=== PATIENT | female | born 1955 | race African-American/Black ===

== ENCOUNTER 2019-03-10 21:07 | Inpatient (IN) | payer MEDICARE ==
[~2019-03-10] VITALS: Ht 165.1 cm; Wt 101.4 kg
--- NOTE | 2019-03-10 23:30 | NUR ---
NURSE NOTES: Received pt from [facility]. Pt is a/o x4. Skin intact except for laceration on right eyebrow s/p fall at home. IV site intact. Belongings list complete, belongings at bedside. teletypesetter monitor placed on patient and vitals taken. Oriented pt to room and floor. Bed locked in lowest position, call light within reach. Will contact Dr for admission orders.
[2019-03-10 23:35] VITALS: BP 136/58
--- NOTE | 2019-03-11 | NUR ---
NURSE NOTES: Left a message for Dr. Mendoza requesting admission orders. Awaiting call back.
[2019-03-11 04:00] VITALS: BP 126/65
[2019-03-11] MEDS ORDERED: Tylenol #3 tab (300mg/30mg) ORAL PRN (07:00)
--- NOTE | 2019-03-11 07:05 | NUR ---
HAND-OFF: Report given to VARUN Urrutia. Endorsed plan of care.
--- NOTE | 2019-03-11 07:15 | NUR ---
NURSE NOTES: Received report from Randall/RN, Patient is asleep, lying semi-ceballos, resting comfortably, on room air, No acute distress/SOB noted. Able to make needs known. IV site patent, no bleeding or infiltration noted. Bed in low position and locked. Bed alarm on, Call light and personal belonging within reach. Will continue plan of care.
[2019-03-11 08:00] VITALS: BP 132/69
[2019-03-11] MEDS: Heparin 5000 units/ml inj SUBQ SCH ×2 (09:00→20:57)
[2019-03-11] MEDS: Aspirin Baby 81mg ORAL SCH (09:44)
[2019-03-11 10:08] LABS: BASOPHILS % (AUTO) 0.8 % (0.0-2.0); EOSINOPHILS % (AUTO) 1.3 % (0.0-3.0); HEMATOCRIT 42.9 % (37.0-47.0); HEMOGLOBIN 13.3 G/DL (12.0-16.0); MEAN CORPUSCULAR VOLUME 89 FL (80-99); MONOCYTES % (AUTO) 4.1 % (1.0-10.0); NEUTROPHILS % (AUTO) 62.9 % (45.0-75.0); PLATELET COUNT 239 K/UL (150-450); RED BLOOD COUNT 4.84 M/UL (4.20-5.40); RED CELL DISTRIBUTION WIDTH 12.1 % (11.6-14.8); WHITE BLOOD COUNT 10.6 K/UL (4.8-10.8)
[2019-03-11 10:09] LABS: APPEARANCE,URINE CLEAR; BILIRUBIN, URINE NEGATIVE (NEGATIVE); COLOR,URINE PALE YELLOW; GLUCOSE, URINE (UA) NEGATIVE (NEGATIVE); KETONES,URINE 1+ (NEGATIVE); LEUKOCYTE ESTERASE ,URINE 3+ (NEGATIVE); NITRITE,URINE NEGATIVE (NEGATIVE); PH,URINE 6 (4.5-8.0); PROTEIN,URINE NEGATIVE (NEGATIVE); UROBILINOGEN,URINE 1 MG/DL (0.0-1.0)
--- NOTE | 2019-03-11 10:50 | Consultation ---
History of Present Illness General Date patient seen: Mar 11, 2019 Present Illness HPI 63 year old female with history of morbid obesity was taken by [employer] to [facility] [place] with cc of dizziness. She also had an episode of mechanical fall and injured her right eyebrow. She was evaluated in [facility] [place]. An acute CVA was ruled out and she is transferred to [facility] [place] further work up. She is sitting up in the bed and conversing normally. She is asymptomatic now. Allergies: Coded Allergies: No Known Allergies (Unverified , 03/11/19) Patient History Healthcare decision maker Resuscitation status Full Code Advanced Directive on File Past Medical/Surgical History Past Medical/Surgical History: (1) Morbid obesity Review of Systems All Other Systems: negative except mentioned in HPI Physical Exam General Appearance: WD/WN, no apparent distress Lines, tubes and drains: peripheral HEENT: normocephalic, atraumatic Neck: non-tender, normal alignment Respiratory/Chest: chest wall non-tender, lungs clear Breasts: no masses Cardiovascular/Chest: normal peripheral pulses Abdomen: normal bowel sounds Genitourinary/Rectal: normal genital exam Extremities: normal range of motion Skin Exam: normal pigmentation Last 24 Hour Vital Signs Date Time Temp Pulse Resp B/P (MAP) Pulse Ox O2 Delivery O2 Flow Rate FiO2 03/11/19 04:00 97.7 60 20 126/65 (85) 98 03/11/19 04:00 60 03/11/19 01:21 Room Air 03/10/19 23:35 97.7 63 20 136/58 (84) 99 Intake and Output 03/10/19 03/11/19 19:00 07:00 Intake Total 120 ml Output Total 200 ml Balance -80 ml Intake Oral 120 ml Output Urine Total 200 ml # Voids 1 Laboratory Tests Test 03/11/19 09:35 03/11/19 09:45 Urine Color Pale yellow Urine Appearance Clear Urine pH 6 (4.5-8.0) Urine Specific [place] 1.015 (1.005-1.035) Urine Protein Negative (NEGATIVE) Urine Glucose (UA) Negative (NEGATIVE) Urine Ketones 1+ (NEGATIVE) H Urine Blood 1+ (NEGATIVE) H Urine Nitrite Negative (NEGATIVE) Urine Bilirubin Negative (NEGATIVE) Urine Urobilinogen 1 MG/DL (0.0-1.0) H Urine Leukocyte Esterase 3+ (NEGATIVE) H Urine RBC 0-2 /HPF (0 - 2) Urine WBC 15-20 /HPF (0 - 2) H Urine Squamous Epithelial Cells Few /LPF (NONE/OCC) Urine Bacteria Few /HPF (NONE) White Blood Count 10.6 K/UL (4.8-10.8) Red Blood Count 4.84 M/UL (4.20-5.40) Hemoglobin 13.3 G/DL (12.0-16.0) Hematocrit 42.9 % (37.0-47.0) Mean Corpuscular Volume 89 FL (80-99) Mean Corpuscular Hemoglobin 27.5 PG (27.0-31.0) Mean Corpuscular Hemoglobin Concent 31.0 G/DL (32.0-36.0) L Red Cell Distribution Width 12.1 % (11.6-14.8) Platelet Count 239 K/UL (150-450) Mean Platelet Volume 8.8 FL (6.5-10.1) Neutrophils (%) (Auto) 62.9 % (45.0-75.0) Lymphocytes (%) (Auto) 31.0 % (20.0-45.0) Monocytes (%) (Auto) 4.1 % (1.0-10.0) Eosinophils (%) (Auto) 1.3 % (0.0-3.0) Basophils (%) (Auto) 0.8 % (0.0-2.0) Prothrombin Time 10.8 SEC (9.30-11.50) Prothromb Time International Ratio 1.0 (0.9-1.1) Activated Partial Thromboplast Time 25 SEC (23-33) Sodium Level Pending Potassium Level Pending Chloride Level Pending Carbon Dioxide Level Pending Blood Urea Nitrogen Pending Creatinine Pending Estimat Glomerular Filtration Rate Pending Glucose Level Pending Calcium Level Pending Phosphorus Level Pending Magnesium Level Pending Total Bilirubin Pending Aspartate Amino Transf (AST/SGOT) Pending Alanine Aminotransferase (ALT/SGPT) Pending Alkaline Phosphatase Pending Total Protein Pending Albumin Pending Globulin Pending Triglycerides Level Pending Cholesterol Level Pending LDL Cholesterol Pending HDL Cholesterol Pending Cholesterol/HDL Ratio Pending Height (Feet): 5 Height (Inches): 5.00 Weight (Pounds): 223 Medications Current Medications Medications (Trade) Dose Ordered Sig/Jere Route PRN Reason Start Time Stop Time Status Last Admin Dose Admin Acetaminophen (Tylenol) 650 mg Q6H PRN ORAL Mild Pain/Temp > 100.5 03/11/19 07:00 04/10/19 06:59 Acetaminophen/ Codeine Phosphate (Tylenol #3) 1 tab Q6H PRN ORAL Pain Scale (6-10) 03/11/19 07:00 03/18/19 06:59 Aspirin (ASA) 81 mg DAILY ORAL 03/11/19 09:00 04/10/19 08:59 03/11/19 09:44 Heparin Sodium (Porcine) (Heparin 5000 units/ml) 5,000 units EVERY 12 HOURS SUBQ 03/11/19 09:00 04/10/19 08:59 Ondansetron HCl (Zofran) 4 mg Q4H PRN IVP Nausea & Vomiting 03/11/19 07:00 04/10/19 06:59 Assessment/Plan Problem List: (1) TIA (transient ischemic attack) ICD Codes: G45.9 - Transient cerebral ischemic attack, unspecified SNOMED: 416859097 (2) Recurrent falls ICD Codes: R29.6 - Repeated falls SNOMED: 455477487 (3) Morbid obesity ICD Codes: E66.01 - Morbid (severe) obesity due to excess calories SNOMED: 926556303 Assessment/Plan: neuro checks MRI of brain 2d Echo doppler of carotid artery Neurology evaluation. Marina Buitrago MD Mar 11, 2019 10:50
[2019-03-11 10:57] LABS: ALANINE AMINOTRANSFERASE 19 U/L (12-78); ALBUMIN 3.4 G/DL (3.4-5.0); ALBUMIN/GLOBULIN RATIO 0.8 (1.0-2.7); ALKALINE PHOSPHATASE 86 U/L (46-116); ANION GAP 9 mmol/L (5-15); ASPARTATE AMINO TRANSFERASE 22 U/L (15-37); BLOOD UREA NITROGEN 12 mg/dL (7-18); CALCIUM 9.2 MG/DL (8.5-10.1); CARBON DIOXIDE 26 MMOL/L (21-32); CHLORIDE 108 MMOL/L (98-107); CHOLESTEROL 212 MG/DL (< 200); CREATININE 0.8 MG/DL (0.55-1.30); HDL CHOLESTEROL 50 MG/DL (40-60); PHOSPHORUS 2.6 MG/DL (2.5-4.9); POTASSIUM 4.1 MMOL/L (3.5-5.1); SODIUM 143 MMOL/L (136-145); TRIGLYCERIDES 69 MG/DL (30-150)
--- NOTE | 2019-03-11 11:27 | NUR ---
SPEECH PATHOLOGY: BEDSIDE SWALLOW EVALUATION COMPLETED POST CHART REVIEW AND INTERVIEW WITH VARUN ANDRE. THERE APPEAR TO BE NEGLIGIBLE DYSPHAGIA RISK FACTORS FOR THIS 63 YEAR OLD FEMALE. IMPRESSION: PATIENT PRESENTS WITH EFFICACY OF OROPHARYNGEAL PHASE OF SWALLOW INTACT. NO FURTHER SKILLED ST SERVICES APPEAR TO BE NEEDED AT THIS TIME. THANK YOU FOR THIS REFERRAL.
[2019-03-11 12:00] VITALS: BP 133/64
--- NOTE | 2019-03-11 12:13 | Diagnostic Imaging Report ---
Indication: An trauma, vertigo, inability to walk Technique: sagittal T1 fast spin echo, axial T1 FLAIR, axial and sagittal T2 FLAIR, axial T2 FS PROPELLER, axial T2* GRE, axial diffusion weighted images. ADC and exponential ADC maps generated Comparison: none Findings: Small focus of restricted diffusion is seen in the periventricular deep white matter adjacent to the posterior body of the left lateral ventricle. No definite associated T2 abnormality demonstrated. No other foci of restricted diffusion demonstrated. There is extensive confluent deep white matter high T2 signal diffusely. Multiple old lacunar infarcts are seen scattered throughout the cerebral deep white matter. Lacunar infarcts are also seen in the bilateral basal ganglia, particularly the thalami as well as within the midbrain. No acute hemorrhage or edema. Punctate foci of susceptibility artifact are seen within the cerebellum and bilateral basal ganglia. No mass effect nor midline shift. There is age-related enlargement of the ventricles and extra axial CSF spaces. The vascular flow voids are preserved.. There is near complete opacification of the left maxillary sinus. There is also bilateral ethmoid sinus mucosal disease. Impression: Positive for small acute lacunar infarct in the left posterior periventricular deep white matter Numerous old bilateral deep white matter, basal ganglia, and brainstem lacunar infarcts Stable scattered punctate foci of susceptibility artifact within the basal ganglia and cerebellum, consistent with old microbleeds; distribution is typical for chronic hypertensive encephalopathy Extensive deep white matter high T2 signal, consistent with chronic microvascular ischemic change Age-related volume loss Negative for acute intracranial bleed or mass effect
--- NOTE | 2019-03-11 12:23 | NUR ---
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
--- NOTE | 2019-03-11 12:29 | History & Physical ---
History and Physical History & Physicial Dictated for Int Med-Dr Mendoza no. [id number]. Tariq Murphy MD Mar 11, 2019 12:29
--- NOTE | 2019-03-11 13:30 | NUR ---
PT EVALUATION NOTE Patient seen for initial evaluation, see complete evaluation for details. Patient presents with generalized weakness and impaired balance which affects patient's ability to complete functional tasks. Patient requires SBA for transfers and CGA for ambulation with FWW due to impaired balance. Patient c/o feeling "wobbly" with walking and is a high fall risk. Patient will benefit from skilled inpatient PT intervention to address strength, balance, coordination, safety and functional mobility with assessment for appropriate assistive device. Recommend discharge to ARU/SNF for further rehab once medically cleared by MD. Addendum: 03/11/19 at 1441 by ALISA MIRANDA PT Amended: Links added.
[2019-03-11 16:00] VITALS: BP 132/87
--- NOTE | 2019-03-11 16:00 | History and Physical Report ---
DATE OF ADMISSION: 03/10/2019 CHIEF COMPLAINT: The patient is a 63-year-old female, who presents with a chief complaint of dizziness, headache, and ataxia. HISTORY OF PRESENT ILLNESS: The patient has a history of transient ischemic attack in the past. The patient states it began a couple of months ago. The patient began to have dizziness. Dizziness is described as the room spinning. Approximately two days ago, the patient began to have frequent falls. The patient states her gait was not steady. The patient presented to [facility] emergency room on 03/10/2019. An MRI of the brain revealed a left parietal lobe acute infarct. The patient is admitted with acute cerebrovascular accident. REVIEW OF SYSTEMS: CONSTITUTIONAL: The patient denies weight loss or weight gain. The patient denies fevers or chills. HEENT: The patient denies ear or throat pain. The patient complains of headache as above. CHEST: The patient denies wheezes or shortness of breath. CARDIOVASCULAR: The patient denies palpitations or chest pain. ABDOMEN: The patient denies nausea, vomiting, diarrhea, or constipation. GENITOURINARY: The patient denies dysuria or increased frequency of urination. NEUROMUSCULAR: The patient denies seizures or generalized weakness. The patient complains of vertigo, ataxia, and headache, as above. PAST MEDICAL HISTORY: Significant for history of transient ischemic attack. PAST SURGICAL HISTORY: The patient denies. CURRENT MEDICATIONS: The patient denies. ALLERGIES: No known drug allergies. SOCIAL HISTORY: The patient is single and lives alone. The patient denies tobacco or alcohol use. PHYSICAL EXAMINATION: VITAL SIGNS: Temperature 98.3, respirations 17, pulse 92, and blood pressure 126/76. GENERAL: The patient is a well-developed and well-nourished, obese female, in no apparent distress. HEENT: Eyes, pupils are equal and responsive to light and accommodation. Extraocular movements are intact. NECK: Supple without lymphadenopathy. CHEST: Lungs are clear to auscultation bilaterally without wheezes or rales. CARDIOVASCULAR: Regular rhythm and rate. S1, S2 normal without murmurs, rubs, or gallops. ABDOMEN: Soft, nontender, and nondistended. Positive bowel sounds. No evidence of hepatosplenomegaly. Currently, no rebound or guarding noted. EXTREMITIES: Negative for clubbing, cyanosis, or edema. RECTAL/GENITAL: Not performed. NEUROLOGIC: Cranial nerves II through XII are grossly intact without focal deficits. Motor strength is 5/5 bilaterally. Deep tendon reflexes are 2+ plantar. IMAGING: CT scan of the brain revealed no acute disease. An MRI of the brain from [facility] revealed a 3 x 8 mm restricted diffusion in the left parietal lobe consistent with acute infarct. LABORATORY STUDIES: WBC 10.6, hemoglobin 13.3, hematocrit 42.2, and platelets 275,000. Sodium 139, potassium 3.8, chloride 105, CO2 24, BUN 13, and creatinine 0.79. Glucose 102. Troponin less than 0.02. ASSESSMENT: This is a 63-year-old female with: 1. Acute left parietal lobe infarct/cerebrovascular accident. 2. Vertigo. 3. Ataxia. 4. Headache. 5. History of cerebrovascular disease. 6. Right eyebrow laceration. TREATMENT: 1. Left parietal lobe acute infarct. A Neurology consultation has been obtained with Dr. Luc Anderson. The patient has been started empirically on aspirin. We will follow recommendations of Neurology. The patient has been started on occupational and physical therapy. 2. Cerebrovascular disease. 3. Right eyebrow laceration. The patient is status post repair at [facility] emergency room. Tariq Murphy M.D. DR: BRENDA JOB#: [id number] CC:
--- NOTE | 2019-03-11 16:32 | Cardiology Report ---
APPROVED REPORT EXAM: Two-dimensional and M-mode echocardiogram with Doppler and color Doppler. INDICATION C.V.A M-Mode DIMENSIONS IVSd0.9 (0.7-1.1cm)Left Atrium (MM)3.1 (1.6-4.0cm) LVDd4.7 (3.5-5.6cm)Aortic Root2.2 (2.0-3.7cm) PWd0.9 (0.7-1.1cm)Aortic Cusp Exc.1.6 (1.5-2.0cm) IVSs1.3 cm LVDs3.2 (2.5-4.0cm) PWs1.3 cm Technically difficult study due to poor acoustical windows. Normal left ventricular chamber size, systolic function and wall motion to extent visualized. Left ventricular ejection fraction estimated to be 60-65 %. No evidence of left ventricular hypertrophy. No pericardial effusion. All other cardiac chamber sizes are within normal limits. Focal aortic valve sclerosis with adequate cusp excursion. Thickened mitral valve leaflets with normal excursion. Mitral annulus and aortic root calcification. Normal pulmonic valve structure. Normal tricuspid valve structure. IVC at normal size without physiologic collapse. A color flow and spectral Doppler study was performed and revealed: No aortic insufficiency. Trace mitral regurgitation. Mitral inflow indicates normal left ventricular diastolic function. Trace tricuspid regurgitation. Tricuspid systolic velocities suggests peak right ventricular systolic pressure of 8 mmHg
--- NOTE | 2019-03-11 19:07 | Consultation ---
Consult Note Consult Note NEUROLOGY CONSULTATION: Full note dictated #[id number] 63-year-old, right-handed, black lady, who does have a past history of untreated dyslipidemia, and obesity. For the last 6 months she has had episodic dizziness, unsteadiness on her feet, and a feeling of being unwell. On 03/08/2019 she felt a sudden change in her self. The unsteadiness on her feet became much worse and she felt like she was going to fall down. She denies any weakness on one side more than the other, numbness on one side of the other, problems with speech, problems with language, problems with vision, or problems with memory. Because of these problems she went to the [facility] and was evaluated there in the emergency room and was found to have a recent left brain stroke. She was stabilized there and then sent to [facility] to be taken care of by Dr. Mendoza. Today she feels relatively well. ON EXAM: Fully oriented Memory: 3/3-0, 1, 3, and second trial Trump and Obama only Math fairly good Visual-spatial function preserved Speech normal Language normal Cranial nerves II through XII intact except for trace right seventh central facial paresis G 5/5 power except for G 4+/5 in right finger extensors and iliopsoas. Sensory normal Reflexes: 2++ on right and 2+ on left at biceps triceps brachioradialis and knees 0 at both ankles. Plantar responses flexor. Coordination: [id number] normal [id number] difficult bilaterally Stance minimally wide-based Gait minimally wide-based but stable IMPRESSION: Recent left parietal deep white matter infarct adjacent to occipital horn of lateral ventricle. Multiple bilateral old subcortical infarcts. Etiology of infarcts most probably small vessel disease related to dyslipidemia and possibly other reasons. RECOMMENDATIONS: Agree with management thus far. Agree with starting the patient on atorvastatin the patient's LDL goal should be less than 70. Keep blood pressure in physiological range that is equal to less than 120/80 mmHg Work-up for other treatable causes of cerebrovascular disease Plavix 75 mg daily for added secondary stroke prevention benefits. Physical and Occupational Therapy to mobilize Luc Anderson M.D., M.S.P.H. Luc Anderson MD Mar 11, 2019 19:07
--- NOTE | 2019-03-11 19:35 | NUR ---
HAND-OFF: Report given to Santo/RN, Patient is in stable condition. Endorsed plan of care.
--- NOTE | 2019-03-11 19:38 | NUR ---
NURSE NOTES: Received report from Ghada RN, pt. received in bed, pt. is awake in bed A/O x's4- able to make needs known, no signs or symptoms of acute cardiac or respiratory distress noted, bed in lowest position and call light within easy reach, bed alarm on, side rails up x's 3 and safety brakes engaged, Pt. aware to ask for assist when ambulating, pt. appears to be clean and dry, Right AC 20G SL IV intact and patent, safety measures continued, will continue with plan of care.
[2019-03-11 20:00] VITALS: BP 139/90
--- NOTE | 2019-03-11 21:45 | Consultation ---
DATE OF CONSULTATION: 03/11/2019 NEUROLOGY CONSULTATION CONSULTING PHYSICIAN: Luc Anderson M.D. REQUESTING PHYSICIAN: Dewayne Mendoza M.D. HISTORY OF PRESENT ILLNESS: The patient is a 63-year-old, right-handed, black lady, who does have a past history of untreated dyslipidemia and morbid obesity. She was functioning relatively well until approximately 6 months ago when she started to have episodic dizziness, unsteadiness on her feet, and a feeling of being generally unwell. She was functioning relatively well in spite of that until 03/08/2019 when she felt a sudden change in herself, unsteadiness on her feet became much worse and she felt like she was going to fall down. She actually lost her balance and lacerated right eyebrow. She went to the [facility] to be evaluated and was told that she had a stroke. At this point in time, she feels a little better but still a little unsteady on her feet. She denies any weakness on one side or the other, numbness on one side or the other, problems with speech, problems with language, problems with vision, problems with her memory. PAST MEDICAL HISTORY: Significant for untreated dyslipidemia for numerous years and obesity for numerous years. FAMILY HISTORY: Nothing significant. PERSONAL HISTORY: Home, she lives alone. 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 Habits, she denies use of alcohol, tobacco, or illicit drugs. MEDICATIONS: At home, none. PHYSICAL EXAMINATION: GENERAL: She is a well-developed, well-nourished, obese black lady, lying in bed, in no acute distress. VITAL SIGNS: Pulse 66 per minute, blood pressure 132/87 mmHg, respiratory rate 18 per minute, and temperature 97.8 degrees Fahrenheit. HEENT: Head normocephalic and atraumatic. EENT examination was observed. NECK: No neck rigidity was observed. NEUROLOGICAL EXAMINATION: MENTAL STATUS: She was awake and alert. She was oriented to person, place, and time. She was able to recall 3 out of 3 words immediately after one minute and after three minutes on the second trial. She was able to remember presidents, Trump and Obama, but could not remember presidents prior to that. Her mathematical skills were fairly good. Her visuospatial function was preserved. Speech, she had no dysarthria. Language, she had no aphasia. CRANIAL NERVE EXAMINATION: CRANIAL NERVE II: The visual souza were intact on confrontation testing. CRANIAL NERVES III, IV, AND : The external ocular movements were full and the pupils 3 mm in diameter, equal, round, regular, and reactive to light. CRANIAL NERVE V: She had normal facial sensations and the temporalis, masseters, and pterygoids function normally. CRANIAL NERVE VII: She had a trace right VII central facial paresis. CRANIAL NERVE VIII: She was able to hear well bilaterally and had no nystagmus. CRANIAL NERVE IX: The palate moved symmetrically on phonation. CRANIAL NERVE X: She had no hoarseness of voice. CRANIAL NERVE XI: The sternocleidomastoids and trapezii function normally. CRANIAL NERVE XII: The tongue was in the midline without any fasciculations or atrophy MOTOR SYSTEM: The tone was normal in all four extremities. Examination of muscle mass revealed no focal wasting. Examination of power revealed grade 5/5 power except for grade 4+/5 power in the right finger extensors and iliopsoas. SENSORY EXAMINATION: She had intact sensations to pinprick, light touch, and graphesthesia. Coordination, she performed well on evctro-to-svfu testing. Sqdz-zl-fuju testing was difficult bilaterally. Romberg test could not be performed because even with eyes open when she was made to stand with feet together she was unsteady. Reflexes 2++ on the right and 2+ on the left in the biceps, triceps, brachioradialis, and knees, 0 at both ankles. The plantar responses were flexor bilaterally. Stance, she had a minimally wide-based, but stable stance. Gait, she walked with a minimally wide-based, but stable gait. DIAGNOSTIC IMPRESSION: 1. The patient is a 63-year-old, right-handed, black lady, who does have a past history of untreated dyslipidemia and obesity who for the last 6 months has had episodic dizziness almost constant unsteadiness on her feet and feeling of being unwell. On 03/08/2019, she had a sudden change in her self and unsteadiness on her feet became much worse and she felt like she was going to fall down. She did not notice any other changes in herself. She presented to the [facility] where she was evaluated with an MRI scan of the brain and was found to have a recent stroke. Today, she feels better. 2. On neurological examination at this time, she does have mild problems with recent memory, moderate problems with remote memory, weakness involving the face, upper and lower extremities on the right side, brisker reflexes on the right side compared to the left with loss of ankle jerks, inability to perform Romberg test, a wide-based stance and a wide-based gait. 3. MRI scan of the brain reveals recent left parietal deep white matter infarct adjacent to the occipital horn of the lateral ventricle. In addition, multiple old bilateral subcortical infarcts are also seen. Laboratory data obtained thus far revealed a relatively normal CBC, relatively normal chemistry panel, dyslipidemia with a total cholesterol of 212, LDL of 144, and HDL of 58. Urinalysis with 3+ leukocyte esterase, 0 to 2 red blood cells, and 15 to 20 white blood cells per high-power field. 4. The patient's history, neurological examination, and laboratory data, and imaging studies are most consistent with an acute left parietal deep white matter infarct leading to a mild right hemiparesis and significant unsteadiness on her feet. However she does have a prior history of unsteadiness on her feet which is still not explained. RECOMMENDATIONS: 1. Agree with management thus far. 2. Agree with starting the patient on atorvastatin. The patient's LDL goal should be less than 70 . 3. I would keep the patient's blood pressure into physiological range that is equal to or less than 120/80 mmHg, at all times. 4. The patient's antiplatelet agent will be changed to Plavix 75 mg daily for added secondary stroke prevention benefits. 5. She will be worked up thoroughly for other treatable causes of cerebrovascular disease and in addition neuropathic process. 6. Physical and occupational therapy should be started to mobilize her. 7. The patient will be observed closely and depending on how she fairs further recommendations will be given. Thank you for entrusting me with the care of this patient. I shall follow her with you. Luc Anderson M.D. DR: Rebecca JOB#: [id number] CC:
[2019-03-12] VITALS: BP 112/56
[2019-03-12 06:57] LABS: ANION GAP 11 mmol/L (5-15); BLOOD UREA NITROGEN 10 mg/dL (7-18); CALCIUM 8.5 MG/DL (8.5-10.1); CARBON DIOXIDE 28 MMOL/L (21-32); CHLORIDE 103 MMOL/L (98-107); CREATININE 1.1 MG/DL (0.55-1.30); POTASSIUM 2.9 MMOL/L (3.5-5.1); SODIUM 142 MMOL/L (136-145)
--- NOTE | 2019-03-12 07:09 | NUR ---
HAND-OFF: Report given to Ghada RN, pt. remains stable and no signs of distress noted.
--- NOTE | 2019-03-12 07:12 | NUR ---
NURSE NOTES: Received report from Santo/RN, Patient is asleep, lying semi-ceballos, resting comfortably, on room air, No acute distress/SOB noted. Able to make needs known. IV site patent, no bleeding or infiltration noted. Bed in low position and locked. Bed alarm on, Side rails up x2,Call light and personal belonging within reach. Will continue plan of care.
[2019-03-12 07:32] LABS: EOSINOPHILS % (AUTO) 2.1 % (0.0-3.0); HEMATOCRIT 40.3 % (37.0-47.0); HEMOGLOBIN 12.8 G/DL (12.0-16.0); LYMPHOCYTES % (AUTO) 38.8 % (20.0-45.0); MEAN CORPUSCULAR VOLUME 89 FL (80-99); MONOCYTES % (AUTO) 10.6 % (1.0-10.0); NEUTROPHILS % (AUTO) 47.4 % (45.0-75.0); PLATELET COUNT 212 K/UL (150-450); RED BLOOD COUNT 4.54 M/UL (4.20-5.40); RED CELL DISTRIBUTION WIDTH 12.7 % (11.6-14.8); WHITE BLOOD COUNT 8.6 K/UL (4.8-10.8)
[2019-03-12 08:00] VITALS: BP 133/66
[2019-03-12] MEDS: Aspirin Baby 81mg ORAL SCH (09:15)
[2019-03-12] MEDS: Heparin 5000 units/ml inj SUBQ SCH ×2 (09:21→20:59)
--- NOTE | 2019-03-12 10:54 | NUR ---
NURSE NOTES: Patient's potassium went down from 4.[address] Buitrago is aware.
--- NOTE | 2019-03-12 11:02 | Pulmonology Progress Note ---
Assessment/Plan Problems: (1) TIA (transient ischemic attack) (2) Recurrent falls (3) Morbid obesity Assessment/Plan MRI reviewed, acute lacunar CVA pt/ot check echo monitor BP Subjective ROS Limited/Unobtainable: No Constitutional: Reports: no symptoms HEENT: Repors: no symptoms Allergies: Coded Allergies: No Known Allergies (Unverified , 03/11/19) Objective Last 24 Hour Vital Signs Date Time Temp Pulse Resp B/P (MAP) Pulse Ox O2 Delivery O2 Flow Rate FiO2 03/12/19 04:00 71 03/12/19 00:00 98.1 75 19 112/56 (74) 96 03/12/19 00:00 86 03/11/19 21:00 Room Air 03/11/19 20:00 114 03/11/19 20:00 97.9 75 19 139/90 (106) 97 03/11/19 16:00 66 03/11/19 16:00 97.8 66 18 132/87 (102) 98 03/11/19 12:00 61 03/11/19 12:00 98.0 66 18 133/64 (87) 97 Intake and Output 03/11/19 03/12/19 18:59 06:59 Intake Total 400 ml Balance 400 ml Intake Oral 400 ml # Voids 3 2 General Appearance: WD/WN HEENT: normocephalic, atraumatic Respiratory/Chest: chest wall non-tender, lungs clear Breasts: no masses Cardiovascular: normal peripheral pulses Abdomen: normal bowel sounds, soft, non tender, no scars Genitourinary: normal external genitalia Extremities: no cyanosis Skin: no lesions Neurologic/Psychiatric: 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 Lymphatic: no neck adenopathy Microbiology Date/Time Source Procedure Growth Status 03/11/19 09:35 Urine,Clean Catch Urine Culture - Preliminary NO GROWTH Resulted Laboratory Tests 03/11/19 21:10: Vitamin D 25-Hydroxy [Pending], 25-Hydroxy Vitamin D2 [Pending], 25-Hydroxy Vitamin D3 [Pending], Rapid Plasma Reagin [Pending] 03/12/19 06:00: Sodium Level 142, Potassium Level 2.9L, Chloride Level 103, Carbon Dioxide Level 28, Anion Gap 11, Blood Urea Nitrogen 10, Creatinine 1.1, Estimat Glomerular Filtration Rate > 60, Glucose Level 122H, Calcium Level 8.5 03/12/19 06:24: White Blood Count 8.6, Red Blood Count 4.54, Hemoglobin 12.8, Hematocrit 40.3, Mean Corpuscular Volume 89, Mean Corpuscular Hemoglobin 28.3, Mean Corpuscular Hemoglobin Concent 31.8L, Red Cell Distribution Width 12.7, Platelet Count 212, Mean Platelet Volume 9.1, Neutrophils (%) (Auto) 47.4, Lymphocytes (%) (Auto) 38.8, Monocytes (%) (Auto) 10.6H, Eosinophils (%) (Auto) 2.1, Basophils (%) ( Auto) 1.0 Current Medications Medications (Trade) Dose Ordered Sig/Jere Route PRN Reason Start Time Stop Time Status Last Admin Dose Admin Acetaminophen (Tylenol) 650 mg Q6H PRN ORAL Mild Pain/Temp > 100.5 03/11/19 07:00 04/10/19 06:59 Acetaminophen/ Codeine Phosphate (Tylenol #3) 1 tab Q6H PRN ORAL Pain Scale (6-10) 03/11/19 07:00 03/18/19 06:59 Aspirin (ASA) 81 mg DAILY ORAL 03/11/19 09:00 04/10/19 08:59 03/12/19 09:15 Atorvastatin Calcium (Lipitor) 10 mg BEDTIME ORAL 03/11/19 21:00 04/10/19 20:59 03/11/19 20:55 Clopidogrel Bisulfate (Plavix) 75 mg DAILY ORAL 03/11/19 20:00 04/10/19 19:59 03/12/19 09:15 Heparin Sodium (Porcine) (Heparin 5000 units/ml) 5,000 units EVERY 12 HOURS SUBQ 03/11/19 09:00 04/10/19 08:59 03/12/19 09:21 Ondansetron HCl (Zofran) 4 mg Q4H PRN IVP Nausea & Vomiting 03/11/19 07:00 04/10/19 06:59 Marina Buitrago MD Mar 12, 2019 11:02
[2019-03-12] MEDS ORDERED: LIPITOR10 MG ORAL (11:12)
[2019-03-12] MEDS ORDERED: ASPIRIN81 MG ORAL (11:12)
[2019-03-12] MEDS ORDERED: PLAVIX75 MG ORAL (11:12)
[2019-03-12 12:00] VITALS: BP 127/74
--- NOTE | 2019-03-12 12:08 | NUR ---
DISCHARGE PLANNING DISCHARGE PLAN HAS CHANGED PATIENT HAS NOW BEEN REFERRED TO [facility]
--- NOTE | 2019-03-12 12:38 | Cardiology Report ---
APPROVED REPORT EKG Measurement Heart [id number] 130P61 [id number] Normal sinus rhythm Possible Anterior infarct, age undetermined Abnormal ECG
--- NOTE | 2019-03-12 13:30 | NUR ---
RD ASSESSMENT & RECOMMENDATIONS SEE CARE ACTIVITY FOR COMPLETE ASSESSMENT DAILY ESTIMATED NEEDS: Needs based on Obesity, cardiac/ 67.6kg abw 22-27 kcals/kg 2117-3056 total kcals 1-1.5 g protein/kg 68-101 g total protein 25-30 mL/kg 7528-0576 total fluid mLs NUTRITION DIAGNOSIS: Altered nutrition related lab values R/T altered lipid metabolism, clinical condition as evidenced by elev cholesterol (212), elev LDL (144), low K (2.9). CURRENT DIET:CARDIAC PO DIET RECOMMENDATIONS: Maintain CARDIAC diet/ texture as tolerated or per COURT RECORDING MONITOR
[2019-03-12 16:00] VITALS: BP 136/77
--- NOTE | 2019-03-12 17:14 | Internal Med Progress Note ---
Subjective Date of Service: Mar 12, 2019 Physician Name Tariq Murphy Attending Physician Dewayne Mendoza MD Current Medications Medications (Trade) Dose Ordered Sig/Jere Route PRN Reason Start Time Stop Time Status Last Admin Dose Admin Acetaminophen (Tylenol) 650 mg Q6H PRN ORAL Mild Pain/Temp > 100.5 03/11/19 07:00 04/10/19 06:59 Acetaminophen/ Codeine Phosphate (Tylenol #3) 1 tab Q6H PRN ORAL Pain Scale (6-10) 03/11/19 07:00 03/18/19 06:59 Aspirin (ASA) 81 mg DAILY ORAL 03/11/19 09:00 04/10/19 08:59 03/12/19 09:15 Atorvastatin Calcium (Lipitor) 10 mg BEDTIME ORAL 03/11/19 21:00 04/10/19 20:59 03/11/19 20:55 Clopidogrel Bisulfate (Plavix) 75 mg DAILY ORAL 03/11/19 20:00 04/10/19 19:59 03/12/19 09:15 Heparin Sodium (Porcine) (Heparin 5000 units/ml) 5,000 units EVERY 12 HOURS SUBQ 03/11/19 09:00 04/10/19 08:59 03/12/19 09:21 Ondansetron HCl (Zofran) 4 mg Q4H PRN IVP Nausea & Vomiting 03/11/19 07:00 04/10/19 06:59 Potassium Chloride (K-Dur) 40 meq Q4H ORAL 03/12/19 11:30 03/12/19 19:31 03/12/19 14:56 Allergies: Coded Allergies: No Known Allergies (Unverified , 03/11/19) ROS Limited/Unobtainable: No Constitutional: Reports: no symptoms HEENT: Reports: no symptoms Cardiovascular: Reports: no symptoms Respiratory: Reports: no symptoms Gastrointestinal/Abdominal: Reports: no symptoms Genitourinary: Reports: no symptoms Neurologic/Psychiatric: Reports: no symptoms Subjective 63 YO F admitted with vertigo and ataxia. Now acute left parietal CVA. Cover for Farheen Cano-Dr Mendoza. Objective Last Vital Signs Date Time Temp Pulse Resp B/P (MAP) Pulse Ox O2 Delivery O2 Flow Rate FiO2 03/12/19 12:00 97.5 72 19 127/74 (91) 98 03/12/19 09:00 Room Air Laboratory Tests Test 03/11/19 21:10 03/12/19 06:00 03/12/19 06:24 Vitamin D 25-Hydroxy Pending 25-Hydroxy Vitamin D2 Pending 25-Hydroxy Vitamin D3 Pending Rapid Plasma Reagin Pending Sodium Level 142 MMOL/L (136-145) Potassium Level 2.9 MMOL/L (3.5-5.1) L Chloride Level 103 MMOL/L (98-107) Carbon Dioxide Level 28 MMOL/L (21-32) Anion Gap 11 mmol/L (5-15) Blood Urea Nitrogen 10 mg/dL (7-18) Creatinine 1.1 MG/DL (0.55-1.30) Estimat Glomerular Filtration Rate > 60 mL/min (>60) Glucose Level 122 MG/DL (74-106) H Calcium Level 8.5 MG/DL (8.5-10.1) White Blood Count 8.6 K/UL (4.8-10.8) Red Blood Count 4.54 M/UL (4.20-5.40) Hemoglobin 12.8 G/DL (12.0-16.0) Hematocrit 40.3 % (37.0-47.0) Mean Corpuscular Volume 89 FL (80-99) Mean Corpuscular Hemoglobin 28.3 PG (27.0-31.0) Mean Corpuscular Hemoglobin Concent 31.8 G/DL (32.0-36.0) L Red Cell Distribution Width 12.7 % (11.6-14.8) Platelet Count 212 K/UL (150-450) Mean Platelet Volume 9.1 FL (6.5-10.1) Neutrophils (%) (Auto) 47.4 % (45.0-75.0) Lymphocytes (%) (Auto) 38.8 % (20.0-45.0) Monocytes (%) (Auto) 10.6 % (1.0-10.0) H Eosinophils (%) (Auto) 2.1 % (0.0-3.0) Basophils (%) (Auto) 1.0 % (0.0-2.0) Microbiology Date/Time Source Procedure Growth Status 03/11/19 09:35 Urine,Clean Catch Urine Culture - Preliminary NO GROWTH Resulted Intake and Output 03/11/19 03/12/19 19:00 07:00 Intake Total 280 ml Balance 280 ml Intake Oral 280 ml # Voids 3 2 Objective PHYSICAL EXAMINATION: GENERAL: The patient is a well-developed and well-nourished, obese female, in no apparent distress. HEENT: Eyes, pupils are equal and responsive to light and accommodation. Extraocular movements are intact. NECK: Supple without lymphadenopathy. CHEST: Lungs are clear to auscultation bilaterally without wheezes or rales. CARDIOVASCULAR: Regular rhythm and rate. S1, S2 normal without murmurs, rubs, or gallops. ABDOMEN: Soft, nontender, and nondistended. Positive bowel sounds. No evidence of hepatosplenomegaly. Currently, no rebound or guarding noted. EXTREMITIES: Negative for clubbing, cyanosis, or edema. RECTAL/GENITAL: Not performed. NEUROLOGIC: Cranial nerves II through XII are grossly intact without focal deficits. Motor strength is 5/5 bilaterally. Deep tendon reflexes are 2+ plantar. Assessment/Plan Assessment/Plan ASSESSMENT: This is a 63-year-old female with: 1. Acute left parietal lobe infarct/cerebrovascular accident. 2. Vertigo. 3. Ataxia. 4. Headache. 5. History of cerebrovascular disease. 6. Right eyebrow laceration. TREATMENT: 1. Left parietal lobe acute infarct. A Neurology consultation has been obtained with Dr. Luc Anderson. The patient has been started empirically on aspirin. We will follow recommendations of Neurology. The patient has been started on occupational and physical therapy. 2. Cerebrovascular disease. 3. Right eyebrow laceration. The patient is status post repair at [facility] emergency room. 4. Discharge Plan: to acute rehab when stable Tariq Murphy MD Mar 12, 2019 17:14
--- NOTE | 2019-03-12 18:57 | Consultation ---
Consult Note Consult Note CONSULTATION Patient: JAN KATZ [facility] Rec #: [id number] Patient No.: [id number] Date of Admission: 03/10/19 Date and time entered: 03/11/191856 DATE OF CONSULTATION: 03/11/2019 NEUROLOGY CONSULTATION CONSULTING PHYSICIAN: Luc Anderson M.D. REQUESTING PHYSICIAN: Dewayne Mendoza M.D. HISTORY: Ms. Jan Katz is a 63-year-old, right-handed, black lady, who does have a past history of untreated dyslipidemia and morbid obesity. She was functioning relatively well until approximately 6 months ago when she started to have episodic dizziness, unsteadiness on her feet, and a feeling of being generally unwell. She was functioning relatively well in spite of that until 03/08/2019 when she felt a sudden change in herself. The unsteadiness on her feet became much worse and she felt like she was going to fall down. She actually lost her balance and lacerated right eyebrow. She went to the [facility] to be evaluated and was told that she had a stroke. At this point in time, she feels a little better but still a little unsteady on her feet. She denies any weakness on one side or the other, numbness on one side or the other, problems with speech, problems with language, problems with vision, problems with her memory. PAST MEDICAL HISTORY: Significant for untreated dyslipidemia for numerous years and obesity for numerous years. FAMILY HISTORY: Nothing significant. PERSONAL HISTORY: Home: She lives alone. 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 Habits: She denies use of alcohol, tobacco, or illicit drugs. MEDICATIONS: At home, none. PHYSICAL EXAMINATION: GENERAL: She is a well-developed, well-nourished, obese black lady, lying in bed, in no acute distress. VITAL SIGNS: Pulse 66/minute, blood pressure 132/87 mmHg, respirations 18/minute, and temperature 97.8 degrees Fahrenheit. HEAD: Normocephalic and atraumatic. EENT: Examination was observed. NECK: No neck rigidity was observed. NEUROLOGICAL EXAMINATION: MENTAL STATUS EXAMINATION: She was awake and alert. She was oriented to person, place, and time. She was able to recall 3/3 words immediately, after 1 minute and after 3 minutes on the second trial. She was able to remember presidents, Trump and Obama, but could not remember presidents prior to that. Her mathematical skills were fairly good. Her visuospatial function was preserved. SPEECH: She had no dysarthria. LANGUAGE: She had no aphasia. CRANIAL NERVE EXAMINATION: II: The visual souza were intact on confrontation testing. III, IV & : The external ocular movements were full and the pupils 3 mm in diameter, equal, round, regular, and reactive to light. V: She had normal facial sensations and the temporales, masseters, and pterygoids functioned normally. VII: She had a trace right VII central facial paresis. VIII: She was able to hear well bilaterally and had no nystagmus. IX: The palate moved symmetrically on phonation. X: She had no hoarseness of voice. XI: The sternocleidomastoids and trapezii functioned normally. XII: The tongue was in the midline without any fasciculations or atrophy MOTOR SYSTEM: The tone was normal in all four extremities. Examination of muscle mass revealed no focal wasting. Examination of power revealed G 5/5 power except for G 4+/5 power in the right finger extensors and iliopsoas. SENSORY EXAMINATION: She had intact sensations to pinprick, light touch, and graphesthesia. COORDINATION: She performed well on ejdqxo-xq-gcsb testing. Ndrh-if-cscu testing was difficult bilaterally. Romberg test could not be performed because even with eyes open when she was made to stand with feet together she was unsteady. REFLEXES: 2++ on the right and 2+ on the left in the biceps, triceps, brachioradialis, and knees, 0 at both ankles. The plantar responses were flexor bilaterally. STANCE: She had a minimally wide-based, but stable stance. GAIT: She walked with a minimally wide-based, but stable gait. DIAGNOSTIC IMPRESSION: 1. Ms. Jan Katz is a 63-year-old, right-handed, black lady, who does have a past history of untreated dyslipidemia and obesity who for the last 6 months has had episodic dizziness, almost constant unsteadiness on her feet, and feeling of being unwell. On 03/08/2019, she had a sudden change in her self and the unsteadiness on her feet became much worse and she felt like she was going to fall down. She did not notice any other changes in herself. She presented to the [facility] where she was evaluated with an MRI scan of the brain and was found to have a recent stroke. Today, she feels better. 2. On neurological examination, at this time, she does have mild problems with recent memory, moderate problems with remote memory, weakness involving the face, upper and lower extremities on the right side, brisker reflexes on the right side compared to the left with loss of ankle jerks, inability to perform Romberg test, a wide-based stance and a wide-based gait. 3. The MRI scan of the brain reveals recent left parietal deep white matter infarct adjacent to the occipital horn of the lateral ventricle. In addition, multiple old bilateral subcortical infarcts are also seen. 4. Laboratory data obtained thus far revealed a relatively normal CBC, relatively normal chemistry panel, a dyslipidemia with a total cholesterol of 212, LDL of 144, and HDL of 58. A Urinalysis with 3+ leukocyte esterase, 0-2 red blood cells, and 15-20 white blood cells per high-power field. 5. The patient's history, neurological examination, laboratory data, and imaging studies, are most consistent with an acute left parietal deep white matter infarct leading to a mild right hemiparesis and significant unsteadiness on her feet. However she does have a prior history of unsteadiness on her feet which is still not explained. RECOMMENDATIONS: 1. Agree with management thus far. 2. Agree with starting the patient on atorvastatin. The patient's LDL goal should be <70 . 3. Would keep the patient's blood pressure in physiological range that is <120/80 mmHg, at all times. 4. The patient's antiplatelet agent will be changed to Plavix 75 mg daily for added secondary stroke prevention benefits. 5. She will be worked up thoroughly for other treatable causes of cerebrovascular disease and in addition a neuropathic process. 6. Physical and occupational therapy should be started to mobilize her. 7. The patient will be observed closely and depending on how she fares further recommendations will be given. Thank you for entrusting me with the care of Ms. Katz. I shall follow her with you. Luc Anderson M.D., M.S.P.Luc Quesada MD Mar 12, 2019 18:57
--- NOTE | 2019-03-12 19:35 | NUR ---
HAND-OFF: Report given to Armannyn/RN, Patient is awake and in stable condition. Endorsed plan ofm care.
--- NOTE | 2019-03-12 19:36 | NUR ---
NURSE NOTES: Received report from Ghada RN, Patient is resting in bed, lying semi-ceballos, on room air, No acute distress/SOB noted at this time. Able to make needs known. IV site patent, no bleeding or infiltration noted. Bed in low position and locked. Bed alarm on, Side rails up x2,Call light and personal belonging within reach. Will continue to monitor and follow plan of care.
[2019-03-12 20:00] VITALS: BP 142/72
--- NOTE | 2019-03-12 20:37 | Neurology Progress Note ---
Interim History Interim History Interim History Ms. Katz feels about the same as yesterday. When she was made to stand up and walk she was still quite unsteady. She denies any new neurological symptoms. She specifically denies any increased weakness on one side or the other, numbness on one side or the other, problems with speech, problems with language , problems with vision, or other neurological symptoms. Her blood pressures are still not under perfect control. Review of Systems Neuro Review of Systems Benign. Objective Physical Exam Last Vital Signs Date Time Temp Pulse Resp B/P (MAP) Pulse Ox O2 Delivery O2 Flow Rate FiO2 03/12/19 20:00 98.0 66 18 142/72 (95) 97 03/12/19 09:00 Room Air Laboratory Tests Test 03/11/19 21:10 03/12/19 06:00 03/12/19 06:24 Vitamin D 25-Hydroxy Pending 25-Hydroxy Vitamin D2 Pending 25-Hydroxy Vitamin D3 Pending Rapid Plasma Reagin Pending Sodium Level 142 MMOL/L (136-145) Potassium Level 2.9 MMOL/L (3.5-5.1) L Chloride Level 103 MMOL/L (98-107) Carbon Dioxide Level 28 MMOL/L (21-32) Anion Gap 11 mmol/L (5-15) Blood Urea Nitrogen 10 mg/dL (7-18) Creatinine 1.1 MG/DL (0.55-1.30) Estimat Glomerular Filtration Rate > 60 mL/min (>60) Glucose Level 122 MG/DL (74-106) H Calcium Level 8.5 MG/DL (8.5-10.1) White Blood Count 8.6 K/UL (4.8-10.8) Red Blood Count 4.54 M/UL (4.20-5.40) Hemoglobin 12.8 G/DL (12.0-16.0) Hematocrit 40.3 % (37.0-47.0) Mean Corpuscular Volume 89 FL (80-99) Mean Corpuscular Hemoglobin 28.3 PG (27.0-31.0) Mean Corpuscular Hemoglobin Concent 31.8 G/DL (32.0-36.0) L Red Cell Distribution Width 12.7 % (11.6-14.8) Platelet Count 212 K/UL (150-450) Mean Platelet Volume 9.1 FL (6.5-10.1) Neutrophils (%) (Auto) 47.4 % (45.0-75.0) Lymphocytes (%) (Auto) 38.8 % (20.0-45.0) Monocytes (%) (Auto) 10.6 % (1.0-10.0) H Eosinophils (%) (Auto) 2.1 % (0.0-3.0) Basophils (%) (Auto) 1.0 % (0.0-2.0) Neurologic Exam Objective PHYSICAL EXAMINATION: GENERAL: She is a well-developed, well-nourished, obese black lady, lying in bed, in no acute distress. HEAD: Normocephalic and atraumatic. EENT: Examination was observed. NECK: No neck rigidity was observed. NEUROLOGICAL EXAMINATION: MENTAL STATUS EXAMINATION: She was awake and alert. She was oriented to person, place, and time. She was able to recall 3/3 words immediately, after 1 minute and after 3 minutes on the second trial. She was able to remember presidents, Trump and Obama, but could not remember presidents prior to that. Her mathematical skills were fairly good. Her visuospatial function was preserved. SPEECH: She had no dysarthria. LANGUAGE: She had no aphasia. CRANIAL NERVE EXAMINATION: II: The visual souza were intact on confrontation testing. III, IV & : The external ocular movements were full and the pupils 3 mm in diameter, equal, round, regular, and reactive to light. V: She had normal facial sensations and the temporales,masseters, and pterygoids functioned normally. VII: She had a trace right VII central facial paresis. VIII: She was able to hear well bilaterally and had no nystagmus. IX: The palate moved symmetrically on phonation. X: She had no hoarseness of voice. XI: The sternocleidomastoids and trapezii functioned normally. XII: The tongue was in the midline without any fasciculations or atrophy MOTOR SYSTEM: The tone was normal in all four extremities. Examination of muscle mass revealed no focal wasting. Examination of power revealed G 5/5 power except for G 4+/5 power in the right finger extensors and iliopsoas. SENSORY EXAMINATION: She had intact sensations to pinprick, light touch, and graphesthesia. COORDINATION: She performed well on [id number] testing. Kxww-dc-[id number] testing was difficult bilaterally. Romberg test could not be performed because even with eyes open when she was made to stand with feet together she was unsteady. REFLEXES: 2++ on the right and 2+ on the left in the biceps, triceps, and brachioradialis. 3+ on the right and 2+ on the left at the knees. 0 at both ankles. The plantar responses were flexor bilaterally. STANCE: She had a minimally wide-based, but stable stance. GAIT: She walked with a minimally wide-based, but stable gait. Impression/Recommendations Diagnostic Impression 1. Ms. Harriet Katz is a 63-year-old, right-handed, black lady, who does have a past history of untreated dyslipidemia and obesity who for the last 6 months has had episodic dizziness, almost constant unsteadiness on her feet, and feeling of being unwell. On 03/08/2019, she had a sudden change in her self and the unsteadiness on her feet became much worse and she felt like she was going to fall down. She did not notice any other changes in herself. She presented to the [facility] where she was evaluated with an MRI scan of the brain and was found to have a recent stroke. 2. She feels about the same as yesterday. When she was made to stand up and walk she was still quite unsteady. She denies any new neurological symptoms. She specifically denies any increased weakness on one side or the other, numbness on one side or the other, problems with speech, problems with language , problems with vision, or other neurological symptoms. Her blood pressures are still not under perfect control. 3. On neurological examination, at this time, she does have mild problems with recent memory, moderate problems with remote memory, weakness involving the face , upper and lower extremities on the right side, brisker reflexes on the right side compared to the left with loss of ankle jerks, inability to perform Romberg test, a wide-based stance and a wide-based gait. 4. The MRI scan of the brain reveals recent left parietal deep white matter infarct adjacent to the occipital horn of the lateral ventricle. In addition, multiple old bilateral subcortical infarcts are also seen. 5. Laboratory data obtained thus far revealed a relatively normal CBC, relatively normal chemistry panel, a dyslipidemia with a total cholesterol of 212, LDL of 144, and HDL of 58. A Urinalysis with 3+ leukocyte esterase, 0-2 red blood cells, and 15-20 white blood cells per high-power field. 6. The patient's history, neurological examination, laboratory data, and imaging studies, are most consistent with an acute left parietal deep white matter infarct leading to a mild right hemiparesis and significant unsteadiness on her feet. However she does have a prior history of unsteadiness on her feet which is still not explained. Recommendations 1. Continue present management. 2. Agree with starting the patient on atorvastatin. The patient's LDL goal should be <70 . 3. Would keep the patient's blood pressure in physiological range that is <120/ 80 mmHg, at all times. 4. Continue Plavix 75 mg daily for added secondary stroke prevention benefits. 5. Physical and occupational therapy to mobilize her. 6. The patient would benefit significantly from a course of acute rehabilitation. Luc Anderson M.D., M.S.P.H. Luc Anderson MD Mar 12, 2019 20:37
[2019-03-13] VITALS: BP 125/69
[2019-03-13 04:00] VITALS: BP 122/73
--- NOTE | 2019-03-13 06:30 | NUR ---
NURSE NOTES: Patient was transferred to the 4th floor room 411-2 without incidence. Report was given to Dhara. All belongings were taken with the patient along with the chart and patient labels. Patient is currently in stable condition without anything pending at this time
[2019-03-13 06:49] LABS: BASOPHILS % (AUTO) 1.4 % (0.0-2.0); EOSINOPHILS % (AUTO) 3.7 % (0.0-3.0); HEMOGLOBIN 12.9 G/DL (12.0-16.0); MEAN CORPUSCULAR VOLUME 89 FL (80-99); MONOCYTES % (AUTO) 11.5 % (1.0-10.0); NEUTROPHILS % (AUTO) 43.4 % (45.0-75.0); PLATELET COUNT 227 K/UL (150-450); RED BLOOD COUNT 4.61 M/UL (4.20-5.40); RED CELL DISTRIBUTION WIDTH 12.1 % (11.6-14.8); WHITE BLOOD COUNT 8.5 K/UL (4.8-10.8)
[2019-03-13] MEDS ORDERED: Tylenol #3 tab (300mg/30mg) ORAL PRN (07:00)
--- NOTE | 2019-03-13 07:00 | NUR ---
NURSE NOTES: PATIENT REPORT THAT PINK STYLUS IS MISSING, NOT IN BELONGINGS; TELEPHONE CALL PLACED TO TRANSFERRING RN, WENDY, STATED THAT HE WILL SEARCH ROOM FOR STYLUS; PATIENT MADE AWARE, ENDORSED TO VARUN MOREIRA.
--- NOTE | 2019-03-13 07:07 | NUR ---
HAND-OFF: Report given to VARUN AVERY.
[2019-03-13 07:36] LABS: ANION GAP 8 mmol/L (5-15); BLOOD UREA NITROGEN 15 mg/dL (7-18); CALCIUM 9.3 MG/DL (8.5-10.1); CARBON DIOXIDE 24 MMOL/L (21-32); CHLORIDE 110 MMOL/L (98-107); CREATININE 0.8 MG/DL (0.55-1.30); POTASSIUM 4.7 MMOL/L (3.5-5.1); SODIUM 141 MMOL/L (136-145)
--- NOTE | 2019-03-13 07:54 | NUR ---
NURSE NOTES: Patient received resting in bed, eating breakfast. Responds appropriately, breathing unlabored on room air. Denies pain or SOB at this time. Cane observed by the bedside. Bed locked in lowest position, bed alarm on. Patient advised to ask for assistance with toileting. Patient verbalized understanding. Bed locked in lowest position, call light placed within reach. Will continue to monitor.
[2019-03-13 08:00] VITALS: BP 116/72
[2019-03-13] MEDS ORDERED: Heparin 5000 units/ml inj SUBQ SCH (09:00)
[2019-03-13] MEDS ORDERED: Aspirin Baby 81mg ORAL SCH (09:00)
--- NOTE | 2019-03-13 10:51 | NUR ---
DISCHARGE PLAN PATIENT WILL DISCHARGE TO [facility] ROOM [address] SKILLED T: [phone] FOR NURSE TO NURSE REPORT [facility] HAS BEEN ARRANGED FOR 1300 SYSTEMS ADMINISTRATOR
--- NOTE | 2019-03-13 11:32 | Pulmonology Progress Note ---
Assessment/Plan Problems: (1) TIA (transient ischemic attack) (2) Recurrent falls (3) Morbid obesity (4) Acute CVA (cerebrovascular accident) Assessment/Plan MRI reviewed, acute lacunar CVA pt/ot check echo monitor BP dc planning in progress Subjective ROS Limited/Unobtainable: No HEENT: Repors: no symptoms Cardiovascular: Reports: no symptoms Allergies: Coded Allergies: No Known Allergies (Unverified , 03/11/19) Objective Last 24 Hour Vital Signs Date Time Temp Pulse Resp B/P (MAP) Pulse Ox O2 Delivery O2 Flow Rate FiO2 03/13/19 09:00 Room Air 03/13/19 08:00 97.7 78 18 116/72 (87) 95 03/13/19 04:00 64 03/13/19 04:00 98.2 68 18 122/73 (89) 98 03/13/19 00:00 98.6 73 18 125/69 (87) 97 03/13/19 00:00 72 03/12/19 21:00 Room Air 03/12/19 20:00 98.0 66 18 142/72 (95) 97 03/12/19 20:00 78 03/12/19 16:00 63 03/12/19 16:00 97.7 80 19 136/77 (96) 96 03/12/19 12:00 97.5 72 19 127/74 (91) 98 03/12/19 12:00 68 Intake and Output 03/12/19 03/13/19 18:59 06:59 Intake Total 480 ml Balance 480 ml Intake Oral 480 ml # Voids 3 1 General Appearance: WD/WN HEENT: normocephalic Respiratory/Chest: chest wall non-tender, lungs clear Breasts: no masses Cardiovascular: normal peripheral pulses Abdomen: normal bowel sounds, soft, non tender Genitourinary: normal external genitalia Extremities: no cyanosis Neurologic/Psychiatric: ophthalmic asst II-XII 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, no motor/sensory deficits Lymphatic: no neck adenopathy Microbiology Date/Time Source Procedure Growth Status 03/11/19 09:35 Urine,Clean Catch Urine Culture - Preliminary Mixed Gram Positive Organism Resulted Laboratory Tests 03/13/19 06:11: White Blood Count 8.5, Red Blood Count 4.61, Hemoglobin 12.9, Hematocrit 41.0, Mean Corpuscular Volume 89, Mean Corpuscular Hemoglobin 27.9, Mean Corpuscular Hemoglobin Concent 31.4L, Red Cell Distribution Width 12.1, Platelet Count 227, Mean Platelet Volume 9.2, Neutrophils (%) (Auto) 43.4L, Lymphocytes (%) (Auto) 40.0, Monocytes (%) (Auto) 11.5H, Eosinophils (%) (Auto) 3.7H, Basophils (%) ( Auto) 1.4, Sodium Level 141, Potassium Level 4.7#, Chloride Level 110H, Carbon Dioxide Level 24, Anion Gap 8, Blood Urea Nitrogen 15, Creatinine 0.8, Estimat Glomerular Filtration Rate > 60, Glucose Level 112H, Calcium Level 9.3 Current Medications Medications (Trade) Dose Ordered Sig/Jere Route PRN Reason Start Time Stop Time Status Last Admin Dose Admin Acetaminophen (Tylenol) 650 mg Q6H PRN ORAL Mild Pain/Temp > 100.5 03/13/19 07:00 04/10/19 06:59 Acetaminophen/ Codeine Phosphate (Tylenol #3) 1 tab Q6H PRN ORAL Pain Scale (6-10) 03/13/19 07:00 03/18/19 06:59 Aspirin (ASA) 81 mg DAILY ORAL 03/13/19 09:00 04/10/19 08:59 03/13/19 09:31 Atorvastatin Calcium (Lipitor) 10 mg BEDTIME ORAL 03/13/19 21:00 04/10/19 20:59 Clopidogrel Bisulfate (Plavix) 75 mg DAILY ORAL 03/13/19 09:00 04/10/19 19:59 03/13/19 09:31 Heparin Sodium (Porcine) (Heparin 5000 units/ml) 5,000 units EVERY 12 HOURS SUBQ 03/13/19 09:00 04/10/19 08:59 03/13/19 09:36 Ondansetron HCl (Zofran) 4 mg Q4H PRN IVP Nausea & Vomiting 03/13/19 07:00 04/10/19 06:59 Marina Buitrago MD Mar 13, 2019 11:32
[2019-03-13 11:47] VITALS: BP 128/79
--- NOTE | 2019-03-13 13:25 | NUR ---
NURSE NOTES: Patient discharged to [facility], report given to Krysten BOND. Patient in stable condition, aware of discharge. IV safely removed, covered with gauze and tape. Belongings reviewed and confirmed by the bedside. Money removed from safe and reviewed with security and nurse stonemason supervisor. Confirmed that amount is correct as during admission. Transported by ambulance personnel.
--- NOTE | 2019-03-13 15:40 | Internal Med Progress Note ---
Subjective Physician Name Dewayne Mendoza Attending Physician Dewayne Mendoza MD Allergies: Coded Allergies: No Known Allergies (Unverified , 03/11/19) Subjective awake, alert, responsive, No chest pain or SOB. Objective Last Vital Signs Date Time Temp Pulse Resp B/P (MAP) Pulse Ox O2 Delivery O2 Flow Rate FiO2 03/13/19 11:47 97.3 78 18 128/79 (95) 95 03/13/19 09:00 Room Air Laboratory Tests Test 03/13/19 06:11 White Blood Count 8.5 K/UL (4.8-10.8) Red Blood Count 4.61 M/UL (4.20-5.40) Hemoglobin 12.9 G/DL (12.0-16.0) Hematocrit 41.0 % (37.0-47.0) Mean Corpuscular Volume 89 FL (80-99) Mean Corpuscular Hemoglobin 27.9 PG (27.0-31.0) Mean Corpuscular Hemoglobin Concent 31.4 G/DL (32.0-36.0) L Red Cell Distribution Width 12.1 % (11.6-14.8) Platelet Count 227 K/UL (150-450) Mean Platelet Volume 9.2 FL (6.5-10.1) Neutrophils (%) (Auto) 43.4 % (45.0-75.0) L Lymphocytes (%) (Auto) 40.0 % (20.0-45.0) Monocytes (%) (Auto) 11.5 % (1.0-10.0) H Eosinophils (%) (Auto) 3.7 % (0.0-3.0) H Basophils (%) (Auto) 1.4 % (0.0-2.0) Sodium Level 141 MMOL/L (136-145) Potassium Level 4.7 MMOL/L (3.5-5.1) # Chloride Level 110 MMOL/L (98-107) H Carbon Dioxide Level 24 MMOL/L (21-32) Anion Gap 8 mmol/L (5-15) Blood Urea Nitrogen 15 mg/dL (7-18) Creatinine 0.8 MG/DL (0.55-1.30) Estimat Glomerular Filtration Rate > 60 mL/min (>60) Glucose Level 112 MG/DL (74-106) H Calcium Level 9.3 MG/DL (8.5-10.1) Microbiology Date/Time Source Procedure Growth Status 03/11/19 09:35 Urine,Clean Catch Urine Culture - Preliminary Mixed Gram Positive Organism Resulted Intake and Output 03/12/19 03/13/19 18:59 06:59 Intake Total 480 ml Balance 480 ml Intake Oral 480 ml # Voids 3 1 Objective GENERAL: The patient is a well-developed and well-nourished, obese female, in no apparent distress. HEENT: Eyes, pupils are equal and responsive to light and accommodation. Extraocular movements are intact. NECK: Supple without lymphadenopathy. CHEST: Lungs are clear to auscultation bilaterally without wheezes or rales. CARDIOVASCULAR: Regular rhythm and rate. S1, S2 normal without murmurs. ABDOMEN: Soft, nontender, and nondistended. Positive bowel sounds. Obesity. EXTREMITIES: Negative for clubbing, cyanosis, or edema. RECTAL/GENITAL: Not performed. NEUROLOGIC: Cranial nerves II through XII are grossly intact without focal deficits. Motor strength is 5/5 bilaterally. Assessment/Plan Assessment/Plan ASSESSMENT: This is a 63-year-old female with: 1. Acute left parietal lobe infarct/cerebrovascular accident. 2. Vertigo. 3. Ataxia. 4. Headache. 5. History of cerebrovascular disease. 6. Right eyebrow laceration. TREATMENT: 1. Left parietal lobe acute infarct. A Neurology consultation has been obtained with Dr. Luc Anderson. The patient has been started empirically on aspirin. We will follow recommendations of Neurology. The patient has been started on occupational and physical therapy. 2. Cerebrovascular disease. 3. Right eyebrow laceration. The patient is status post repair at [facility] emergency room. 4. Discharge Plan: DC to SNF today. Dewayne Mendoza MD Mar 13, 2019 15:40
--- NOTE | 2019-03-14 18:35 | Discharge Summary ---
Discharge Summary Discharge Summary _ DATE OF ADMISSION: 03/10/2019 DATE OF DISCHARGE: 03/13/2019 ADMITTING MD: Dr. Dewayne Mendoza DISCHARGED BY: Dr. Marina Buitrago CONSULTANTS: Dr. Luc Buitrago BRIEF HOSPITAL COURSE: Patient is a 63-year-old -[place] female, who presented to the hospital with chief complaint of dizziness, headache and ataxia. Patient has a history of transient ischemic attack in the past. The patient stated he began a couple of months ago. The patient started to have dizziness. Dizziness was described to be room spinning. Approximately 2 days prior to admission, the patient began to have frequent falls. The patient stated her gait was not steady. The patient initially presented to [facility] emergency room on 03/10/2019. MRI of the brain revealed a left parietal lobe acute infarct. The patient was transferred to [facility] for diagnosis of acute cerebrovascular accident. Patient was admitted to monitored floor. She was placed on frequent neuro checks. She was started empirically on aspirin. Neurology was consulted. She sustained a right eyebrow laceration, status post repair at [facility] emergency room. Blood work done on arrival to [facility] showed WBC of 10.6, hemoglobin 13, hematocrit 43. Chemistry normal. Urinalysis with 3+ leukocyte esterase, 0-2 red blood cells, and 15-20 white blood cells per high-power field. Neuro evaluation was done. Patient was fully oriented with normal speech, normal language, visualspatial function preserved. Cranial nerves II through XII intact except for trace right 7th central facial paralysis. She has 5/5 power except for G 4+/5 in the right finger extensors and iliopsoas. Sensory normal. [id number]-[id number] normal. Eymx-li-efdk difficult bilaterally. Stance minimally wide based, gait minimally wide based but stable. Patient had recent left parietal deep white matter infarct adjacent to occipital horn of lateral ventricle. She had multiple bilateral old subcortical infarcts. Lipid panel was checked. Total cholesterol was elevated to 212. LDL 144. HDL 50. She was started on a atorvastatin. LDL goal should be less than 70. Plavix 75 mg was added for secondary stroke prevention benefits. Speech evaluation was done. Patient has effective intact swallow. Physical therapy recommended skilled inpatient PT to address strength, balance, coordination, safety and functional mobility with assessment for appropriate assistive device. Urine culture showed growth of mixed gram-positive organisms. Thyroid function was normal. Folate and vitamin B12 normal. RPR nonreactive. She had episode of hypokalemia and was given potassium supplements. She was eventually discharged to [facility]. FINAL DIAGNOSES: Left parietal lobe acute infarct Right eyebrow laceration status post repair at [facility] Recurrent falls Morbid obesity Hypokalemia Dyslipidemia DISPOSITION: Patient was discharged to a SNF. DISCHARGE MEDICATIONS: Refer to Discharge Medication List. I have been assigned to complete a discharge summary on this account, I was not involved with the patient's management.--RICHA Gonzales Jacqueline Robles NP Mar 14, 2019 18:35
== END 2019-03-13 13:30 | DRG 65 ==
LOC: 2E 23:11 → 4E 03-13 06:05
DX: I63.89 Other cerebral infarction (principal); Z68.41 Body mass index [BMI] 40.0-44.9, adult; R27.0 Ataxia, unspecified; Z86.73 Personal history of transient ischemic attack (TIA), and cerebral infarction without residual deficits; Z91.81 History of falling; S01.111D Laceration without foreign body of right eyelid and periocular area, subsequent encounter; W19.XXXA Unspecified fall, initial encounter; W19.XXXD Unspecified fall, subsequent encounter; E66.01 Morbid (severe) obesity due to excess calories; E78.5 Hyperlipidemia, unspecified
CPT/HCPCS: 36415; 70551; 80048; 80053; 80061; 81003; 82306; 82607; 82746; 83735; 84100; 84443; 85025; 85610; 85651; 85730; 86592; 87086; 93005; 93306; 93880; J8499

== ENCOUNTER 2020-04-08 15:00 | Inpatient (IN) | payer MEDICARE, MEDICAID ==
[~2020-04-08] VITALS: Ht 165.1 cm; Wt 88.9 kg
[2020-04-08] VITALS (10 sets, daily range): BP systolic 71–115; BP diastolic 32–96
[2020-04-08] MEDS: D5 1/2NS w/KCl 20mEq 1,000 ML IV SCH
[~2020-04-08 15:00] MED LIST: ASPIRIN81 MG ORAL; LIPITOR10 MG ORAL; PLAVIX75 MG ORAL
--- NOTE | 2020-04-08 15:04 | NUR ---
ED Nurse Note: Pt TAMIKA [id number] from [facility] c/o altered mental status. Per EMS, pt is usually AAOx3, but today she is more altered, non verbal and noted with rapid heart rate. Pt has hx of a-fib and CVA. NS 500ml IVF was given en route by EMS. Pt was tested positive at the facility 2 days ago. Present with HR 160. Isolation precaution observed. Pt placed on groundwater monitoring technician, ERMD at bedside.
--- NOTE | 2020-04-08 15:13 | Emergency Room Report ---
History of Present Illness General Chief Complaint: Altered Mental Status Source: Patient Present Illness HPI 64-year-old female coming [facility] with altered mental status. The patient tested positive for COVID-19 2 days ago. Patient has a history of atrial fibrillation, CVA. According to the penitentiary facility the patient is usually alert and oriented x3. However this morning she was nonverbal and had a rapid heart rate. When paramedics arrived patient had a heart rate of around 160 irregularly irregular and a blood pressure of 80/60. She was immediately started on IV normal saline and blood pressure improved but heart rate minute remained highly elevated. Patient unable to participate in review of systems secondary to altered mental status. 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 COVID-19 Screening: Positive COVID-19 COVID-19 Testing Source: na Patient History Last Menstrual Period: na Nursing Documentation-[facility] Past Medical History: No History, Except For Hx Cardiac Problems: Yes - dysphagia, hypokalemia, hyperlipidemia, CVA, UTI, DVT, Hx Hypertension: Yes Hx Diabetes: Yes Hx Gastrointestinal Problems: Yes - colitis, History Of Psychiatric Problem: Yes - depression, Hx Transient Ischemic Attacks: Yes - 06/26/2017 Hx Vertigo: Yes Review of Systems All Other Systems: limited Physical Exam Vital Signs Date Time Temp Pulse Resp B/P (MAP) Pulse Ox O2 Delivery O2 Flow Rate FiO2 04/08/20 15:00 98.8 160 18 104/62 (76) 95 Room Air Sp02 EP Interpretation: reviewed, normal General Appearance: other - Appears chronically ill. Nonverbal, withdraws from pain, obtunded, Chronically Ill Head: normocephalic, atraumatic Eyes: bilateral eye normal inspection, bilateral eye PERRL ENT: normal pharynx, no angioedema Neck: full range of motion, supple/symm/no masses Respiratory: chest non-tender, normal breath sounds, speaking full sentences, other - Mild rales in all lung souza Cardiovascular #1: no edema, other - Tachycardic 160 bpm, irregularly irregular Cardiovascular #2: 2+ carotid (R), 2+ carotid (L), 2+ radial (R), 2+ radial (L), 2+ dorsalis pedis (R), 2+ dorsalis pedis (L) Gastrointestinal: normal bowel sounds, non tender, soft, non-distended, no guarding, no rebound Rectal: deferred Genitourinary: normal inspection, no CVA tenderness Musculoskeletal: back normal, normal range of motion, calf tenderness, gait/station normal, non-tender Neurologic: other - Patient unable to participate in neurologic examination secondary to altered mental status. Withdraws from pain with all extremities Psychiatric: no suicidal/homicidal ideation Lymphatic: no adenopathy Procedures Central Line Central Line : Consent: Emergent Central Line Lumen: triple Maximal Sterile Barrier Tech: yes cap, yes mask, yes sterile gown, yes sterile gloves, yes large sterile sheet, yes hand hygiene, yes chlorhexidine prep Central Line Postion: femoral (L) Anesthesia: Lidocaine US Guided Line?: Yes Vessel visualized with U/S: Left Femoral Vein Ultrasound Findings: Collapsible Vessel, Vessel Patent, Color flow present, Visualize vessel puncture Complications: none Central Line Post Position: sutured Attempts: One Patient Tolerated: Well Complications: None Medical Decision Making Diagnostic Impression: Primary Impression: Atrial fibrillation with RVR Additional Impressions: COVID-19 Sepsis Morbid obesity Septic shock Altered mental status Anemia ER Course EKG: Rate 154 bpm. Normal axis. Regular rhythm. Clear P waves before each QRS. Mild ST depressions in leads II, V4, V5, V6. No ectopy Total critical care time: Approximately 65 minutes Due to a high probability of clinically significant, life threatening deterioration, the patient required the highest level of preparedness to inte rvene emergently and I personally spent this critical care time directly and personally managing the patient. This critical care time included obtaining a history, examining the patient, pulse oximetry, ordering and reviewing studies, ordering treatments, evaluating response to treatment and updating management plan as needed, frequent reassessment and discussion with other providers as well as arranging for ultimate disposition. This critical to care time was performed to assess and manage the high probability of life-threatening deterioration that could result in multiorgan failure. This critical care time is separate from the separately billable procedures and treating other patients. Laboratory Tests Test 04/08/20 15:30 04/08/20 15:55 04/08/20 16:40 04/08/20 20:30 White Blood Count 12.3 K/UL (4.8-10.8) H 9.5 K/UL (4.8-10.8) Red Blood Count 3.71 M/UL (4.20-5.40) L 2.58 M/UL (4.20-5.40) L Hemoglobin 10.5 G/DL (12.0-16.0) L 7.1 G/DL (12.0-16.0) #L Hematocrit 33.0 % (37.0-47.0) L 22.9 % (37.0-47.0) #L Mean Corpuscular Volume 89 FL (80-99) 89 FL (80-99) Mean Corpuscular Hemoglobin 28.3 PG (27.0-31.0) 27.5 PG (27.0-31.0) Mean Corpuscular Hemoglobin Concent 31.9 G/DL (32.0-36.0) L 30.9 G/DL (32.0-36.0) L Red Cell Distribution Width 14.1 % (11.6-14.8) 14.3 % (11.6-14.8) Platelet Count 412 K/UL (150-450) 262 K/UL (150-450) Mean Platelet Volume 6.6 FL (6.5-10.1) 6.4 FL (6.5-10.1) L Neutrophils (%) (Auto) 82.4 % (45.0-75.0) H % (45.0-75.0) Lymphocytes (%) (Auto) 10.1 % (20.0-45.0) L % (20.0-45.0) Monocytes (%) (Auto) 6.9 % (1.0-10.0) % (1.0-10.0) Eosinophils (%) (Auto) 0.1 % (0.0-3.0) % (0.0-3.0) Basophils (%) (Auto) 0.5 % (0.0-2.0) % (0.0-2.0) Prothrombin Time 12.3 SEC (9.30-11.50) H Prothrombin Time INR 1.1 (0.9-1.1) Activated Partial Thromboplast Time 25 SEC (23-33) D-Dimer 0.72 mg/L FEU (0.00-0.49) H Sodium Level 142 MMOL/L (136-145) Potassium Level 4.3 MMOL/L (3.5-5.1) Chloride Level 105 MMOL/L (98-107) Carbon Dioxide Level 27 MMOL/L (21-32) Blood Urea Nitrogen 32 mg/dL (7-18) H Creatinine 1.7 MG/DL (0.55-1.30) H Estimated Glomerular Filtration Rate 36.5 mL/min (>60) Glucose Level 135 MG/DL (74-106) H Osmolality 303 mOsm/kg (297-317) Lactic Acid Level 2.90 mmol/L (0.4-2.0) H 2.00 mmol/L (0.66-2.22) Uric Acid 5.8 MG/DL (2.6-7.2) Calcium Level 9.2 MG/DL (8.5-10.1) Phosphorus Level 3.7 MG/DL (2.5-4.9) Magnesium Level 2.4 MG/DL (1.8-2.4) Ferritin 927 NG/ML (8-388) H Total Bilirubin 0.4 MG/DL (0.2-1.0) Aspartate Amino Transferase (AST) 71 U/L (15-37) H Alanine Aminotransferase (ALT) 37 U/L (12-78) Alkaline Phosphatase 79 U/L (46-116) Lactate Dehydrogenase 337 U/L (81-234) H Total Creatine Kinase 55 U/L (26-308) Creatine Kinase MB < 0.5 NG/ML (0.0-3.6) Creatine Kinase MB Relative Index 0.9 Troponin I 0.092 ng/mL (0.000-0.056) C-Reactive Protein, Quantitative 11.9 mg/dL (0.00-0.90) H Pro-B-Type Natriuretic Peptide 740 pg/mL (0-125) H Total Protein 6.6 G/DL (6.4-8.2) Albumin 2.4 G/DL (3.4-5.0) L Globulin 4.2 g/dL Albumin/Globulin Ratio 0.6 (1.0-2.7) L Lipase 76 U/L (73-393) Free Thyroxine 1.59 NG/DL (0.76-1.46) H Urine Color Red Urine Appearance Turbid Urine pH 8 (4.5-8.0) Urine Specific [place] 1.010 (1.005-1.035) Urine Protein 4+ (NEGATIVE) H Urine Glucose (UA) Negative (NEGATIVE) Urine Ketones 1+ (NEGATIVE) H Urine Blood 5+ (NEGATIVE) H Urine Nitrite Negative (NEGATIVE) Urine Bilirubin Negative (NEGATIVE) Urine Urobilinogen Normal MG/DL (0.0-1.0) Urine Leukocyte Esterase 1+ (NEGATIVE) H Urine RBC Tntc /HPF (0 - 2) H Urine WBC Tntc /HPF (0 - 2) H Urine Squamous Epithelial Cells Occasional /LPF Urine Bacteria Many /HPF (NONE) H Neutrophils % (Manual) Pending Lymphocytes % (Manual) Pending Platelet Estimate Pending Platelet Morphology Pending Microbiology Date/Time Source Procedure Growth Status 04/08/20 15:30 Nasopharynx SARS-CoV-2 RdRp Gene Assay - Final Complete CT abdomen pelvis without IV contrast:IMPRESSION: 1. Study limited due to lack of IV contrast. 2. Pulmonary findings could represent multifocal pneumonia or aspiration. These findings could also represent viral pneumonia, although this is not highly specific pattern. 3. Correlate for UTI due to urinary bladder wall thickening. 4. Prominent rectal stool burden with mild wall thickening could represent stercoral colitis in the proper context. Otherwise, diffuse large colonic stool burden could be a cause for pain. 5. Left superior renal pole ill-defined mild hyperdensity could be a manifestation of chronic medical renal disease in the proper context. 6. Consider outpatient CT adrenal glands to further evaluate indeterminate left adrenal 1.2 cm nodularity. 7. Calcified fibroid uterus. 8. Appendectomy. Chest x-ray: Mild diffuse patchy interstitial infiltrates 64-year-old female with history of CVA, uterine cancer here with altered mental status. Patient was initially in atrial fibrillation with rapid ventricular rate with a rate of around 165 to 170 bpm on arrival to the emergency department. Blood pressure initially was normal. She was started on Cardizem bolus and drip. After several minutes the patient converted to normal sinus rhythm which is evidenced by her EKG. She was in sinus tachycardia at around 155 to 160 bpm. Cardizem dose was decreased and patient was started on IV normal saline boluses. She received 30 cc/kg fluid bolus. She remained hemodynamically stable otherwise and her heart rate gradually improved to around 120 to 115 bpm. CBC showed hemoglobin of 10.5 which is decreased from patient's normal baseline hemoglobin of 14. There was blood coming from Lowe catheter as well as blood coming from the patient's rectum. Patient was therefore emergently started on 2 units of packed red blood cells in the emergency department. Had a UTI and patchy interstitial infiltrates on chest x-ray. She has known COVID positive from 2 days ago. Was given Decadron. She was started vancomycin and cefepime. She was admitted to the ICU and soon after she was admitted to the ICU I was called that the patient's blood pressure was decreasing and required vasopressors. I went to the ICU and performed a central line in the right femoral vein without any complications. Last Vital Signs Date Time Temp Pulse Resp B/P (MAP) Pulse Ox O2 Delivery O2 Flow Rate FiO2 04/08/20 15:00 98.8 160 18 104/62 (76) 95 Room Air Isaiah Galdamez M.D. Apr 08, 2020 15:13
[2020-04-08] MEDS ORDERED: dexAMETHasone 10mg/ml Inj IV ONE (15:15)
[2020-04-08] MEDS ORDERED: dilTIAZem Premix 125mg/125ml 125 ML IVPB ONE (15:15)
[2020-04-08] MEDS ORDERED: PLAVIX75 MG ORAL (15:21)
[2020-04-08] MEDS ORDERED: REMERON15 MG ORAL (15:21)
[2020-04-08] MEDS ORDERED: ATORVASTATIN CA40 MG ORAL (15:21)
[2020-04-08] MEDS ORDERED: SENNA8.6 M2 PO (15:21)
[2020-04-08] MEDS ORDERED: COLACE100 MG ORAL (15:21)
[2020-04-08] MEDS ORDERED: OMEGA-3100 M1 PO (15:21)
[2020-04-08] MEDS ORDERED: KEFLEX250 MG ORAL (15:21)
[2020-04-08] MEDS ORDERED: MIRALAX17 G2 ORAL (15:21)
[2020-04-08] MEDS ORDERED: MULTIVITAMINS1 EAC8 ORAL (15:21)
[2020-04-08] MEDS ORDERED: MELATONIN3 MG ORAL (15:21)
[2020-04-08] MEDS ORDERED: MAGNESIUM250 M3 PO (15:21)
[2020-04-08] MEDS ORDERED: LORATADINE10 M2 PO (15:21)
[2020-04-08] MEDS ORDERED: ACETAMINOPHEN-1 EAC1 ORAL (15:22)
[2020-04-08] MEDS ORDERED: ZOFRAN ODT8 MG ORAL (15:22)
--- NOTE | 2020-04-08 15:30 | NUR ---
ED Nurse Note: IV line established. Blood and covid swab collected and sent to lab.
[2020-04-08 15:53] LABS: BASOPHILS % (AUTO) 0.5 % (0.0-2.0); EOSINOPHILS % (AUTO) 0.1 % (0.0-3.0); HEMOGLOBIN 10.5 G/DL (12.0-16.0); LYMPHOCYTES % (AUTO) 10.1 % (20.0-45.0); MEAN CORPUSCULAR VOLUME 89 FL (80-99); MONOCYTES % (AUTO) 6.9 % (1.0-10.0); NEUTROPHILS % (AUTO) 82.4 % (45.0-75.0); PLATELET COUNT 412 K/UL (150-450); RED BLOOD COUNT 3.71 M/UL (4.20-5.40); RED CELL DISTRIBUTION WIDTH 14.1 % (11.6-14.8); WHITE BLOOD COUNT 12.3 K/UL (4.8-10.8)
--- NOTE | 2020-04-08 15:55 | NUR ---
ED Nurse Note: FC 16fr inserted per ERMD, patent and draining well. Noted with hematuria. ERMD notified. Urine specimen collected and sent to lab.
[2020-04-08 16:11] LABS: INR 1.1 (0.9-1.1)
[2020-04-08 16:15] LABS: APPEARANCE,URINE TURBID; BILIRUBIN, URINE NEGATIVE (NEGATIVE); GLUCOSE, URINE (UA) NEGATIVE (NEGATIVE); KETONES,URINE 1+ (NEGATIVE); LEUKOCYTE ESTERASE ,URINE 1+ (NEGATIVE); NITRITE,URINE NEGATIVE (NEGATIVE); PH,URINE 8 (4.5-8.0); PROTEIN,URINE 4+ (NEGATIVE); UROBILINOGEN,URINE NORMAL MG/DL (0.0-1.0)
[2020-04-08] MEDS ORDERED: Cefepime HCl 1 GM in D5W 55 ML IVPB ONE (16:15)
[2020-04-08] MEDS ORDERED: Vancomycin 1 GM in NS 275 ML IVPB ONE (16:15)
[2020-04-08 16:18] LABS: COLOR,URINE RED
[2020-04-08 16:24] LABS: ALANINE AMINOTRANSFERASE 37 U/L (12-78); ALBUMIN 2.4 G/DL (3.4-5.0); ALBUMIN/GLOBULIN RATIO 0.6 (1.0-2.7); ALKALINE PHOSPHATASE 79 U/L (46-116); ASPARTATE AMINO TRANSFERASE 71 U/L (15-37); BILIRUBIN,TOTAL 0.4 MG/DL (0.2-1.0); BLOOD UREA NITROGEN 32 mg/dL (7-18); CALCIUM 9.2 MG/DL (8.5-10.1); CARBON DIOXIDE 27 MMOL/L (21-32); CHLORIDE 105 MMOL/L (98-107); CREATINE KINASE 51 U/L (26-308); CREATININE 1.7 MG/DL (0.55-1.30); FERRITIN 927 NG/ML (8-388); LACTATE DEHYDROGENASE 337 U/L (81-234); PHOSPHORUS 3.7 MG/DL (2.5-4.9); POTASSIUM 4.3 MMOL/L (3.5-5.1); SODIUM 142 MMOL/L (136-145)
[2020-04-08 16:25] LABS: CKMB < 0.5 NG/ML (0.0-3.6)
--- NOTE | 2020-04-08 16:31 | Diagnostic Imaging Report ---
Indication: Reason For Exam: SOB Technique: Single AP view of the chest. Comparison: None. Findings: The cardiomediastinal silhouette is within normal limits. Mild biapical scarring. There is mild diffuse bronchial thickening. There is no focal consolidation, pneumothorax or pleural effusion. Osseous structures demonstrate no acute abnormality. IMPRESSION: Mild diffuse peribronchial thickening in the absence of airspace consolidation, which is nonspecific but can be seen with infectious/inflammatory airways disease in the appropriate clinical context.
--- NOTE | 2020-04-08 16:44 | NUR ---
ED Nurse Note: Pt went down to CT via [place], accompanied by a tech.
--- NOTE | 2020-04-08 16:56 | NUR ---
ED Nurse Note: Pt returned from CT, not in any distress. Placed back on the monitor.
--- NOTE | 2020-04-08 17:22 | NUR ---
ED Nurse Note: Report given to Tomi BOND.
--- NOTE | 2020-04-08 17:35 | NUR ---
TRANSFER TO FLOOR: Patient transferred to ICU via gurney. Pt AAOx1, able to state her name. No SOB, on 2L via nc. IV line on left AC 18g and right hand 22g patent and intact. On Cardizem 10mg/hr and Vanco 1g patent and infusing well. No skin issues. Swabs are sent. Pt does not have any belongings.
--- NOTE | 2020-04-08 18:00 | NUR ---
NURSE NOTES: Patient admitted from ER, report received from VARUN Andrews. Patient admitted from [facility] , on Cardizem drip at 10mg and ST at 121 on the monitor. Noted with hematuria and vaginal bleeding.Dr Mendoza made aware, also made aware low BP as stated he will call ER physician for central line.Patient awake and confused, garbled speech.Will continue close monitoring Addendum: 04/08/20 at 1923 by Justa Stephens RN Transfuse 1UNIT PRBC
--- NOTE | 2020-04-08 18:08 | Diagnostic Imaging Report ---
EXAM: CT Abdomen and Pelvis Without Intravenous Contrast CLINICAL HISTORY: BLD TECHNIQUE: Axial computed tomography images of the abdomen and pelvis without intravenous contrast. CTDI is 8.2 mGy and DLP is 439.4 mGy-cm. One or more of the following dose reduction techniques were used: automated exposure control, adjustment of the mA and/or kV according to patient size, use of iterative reconstruction technique. Coronal and sagittal reformatted images were created and reviewed. COMPARISON: No relevant prior studies available. FINDINGS: Limitations: Study limited due to lack of IV contrast. Lung bases: In the proper clinical context, the pulmonary findings could also represent viral pneumonia, although this is not highly specific pattern. Bibasilar groundglass and mild consolidative prominently dependent pulmonary opacities represent atelectasis with some component of infectious or inflammatory process. This could represent aspiration given distribution. Pressure. ABDOMEN: Liver: Unremarkable. Gallbladder and bile ducts: Unremarkable. No calcified stones. No ductal dilation. Pancreas: Unremarkable. No ductal dilation. Spleen: Unremarkable. No splenomegaly. Adrenals: Consider outpatient CT adrenal glands to further evaluate. Indeterminate left adrenal 1.2 cm nodularity. Unremarkable right adrenal Kidneys and ureters: Left superior renal pole ill-defined mild hyperdensity could be a manifestation of chronic medical renal disease in the proper context. Unremarkable right kidney. No obstructing stones. No hydronephrosis. Stomach and bowel: Prominent rectal stool burden with mild wall thickening could represent stercoral colitis in the proper context. Otherwise, diffuse large colonic stool burden could be a cause for pain. PELVIS: Appendix: Appendectomy. Bladder: Lowe catheter in the thick-walled decompressed urinary bladder. No stones. Reproductive: Calcified fibroid uterus. ABDOMEN and PELVIS: Intraperitoneal space: Unremarkable. No free air. No significant fluid collection. Bones/joints: Osteopenia. No acute fracture. No dislocation. Soft tissues: Unremarkable. Vasculature: Unremarkable. No abdominal aortic aneurysm. Lymph nodes: Unremarkable. No enlarged lymph nodes. Other findings: Old granulomatous disease in the chest. IMPRESSION: 1. Study limited due to lack of IV contrast. 2. Pulmonary findings could represent multifocal pneumonia or aspiration. These findings could also represent viral pneumonia, although this is not highly specific pattern. 3. Correlate for UTI due to urinary bladder wall thickening. 4. Prominent rectal stool burden with mild wall thickening could represent stercoral colitis in the proper context. Otherwise, diffuse large colonic stool burden could be a cause for pain. 5. Left superior renal pole ill-defined mild hyperdensity could be a manifestation of chronic medical renal disease in the proper context. 6. Consider outpatient CT adrenal glands to further evaluate indeterminate left adrenal 1.2 cm nodularity. 7. Calcified fibroid uterus. 8. Appendectomy.
--- NOTE | 2020-04-08 18:13 | History & Physical ---
History and Physical History & Physicial Job # Dewayne Mendoza MD Apr 08, 2020 18:13
[2020-04-08] MEDS ORDERED: Albuterol/Ipratropium 3ml neb HHN PRN (19:00)
[2020-04-08] MEDS ORDERED: Miralax 17gm pkt ORAL PRN (19:00)
[2020-04-08] MEDS ORDERED: Digoxin 0.5mg/2ml Inj IVP SCH (19:00)
[2020-04-08] MEDS ORDERED: Metoprolol Tartrate 5mg/5ml Inj IVP PRN (19:00)
[2020-04-08] MEDS: dilTIAZem Premix 125mg/125ml 125 ML IVPB SCH (19:03)
--- NOTE | 2020-04-08 19:22 | NUR ---
HAND-OFF: Report given to VARUN Garcia.
[2020-04-08] MEDS ORDERED: Lidocaine 1% 10mg/ml/Epi 0.005mg/ml 30ml vial INJ SCH (19:24)
[2020-04-08] MEDS ORDERED: Lidocaine 1% 10mg/ml/Epi 0.005mg/ml 30ml vial INJ ONE (19:25)
[2020-04-08 19:26] LABS: CREATINE KINASE 55 U/L (26-308)
[2020-04-08] MEDS ORDERED: LIDOCAINE IV SCH (19:42)
[2020-04-08] MEDS ORDERED: Dyna-Hex 2% Top Sol 2oz TOPIC ONE (20:00)
--- NOTE | 2020-04-08 20:00 | NUR ---
NURSE NOTES: received report from mariya vaughan pt awake and alert follows command dr miles in and inserted rt femoral tlc pt toleraed well
[2020-04-08 20:40] LABS: HEMATOCRIT 22.9 % (37.0-47.0); HEMOGLOBIN 7.1 G/DL (12.0-16.0); MEAN CORPUSCULAR VOLUME 89 FL (80-99); PLATELET COUNT 262 K/UL (150-450); RED BLOOD COUNT 2.58 M/UL (4.20-5.40); RED CELL DISTRIBUTION WIDTH 14.3 % (11.6-14.8); WHITE BLOOD COUNT 9.5 K/UL (4.8-10.8)
[2020-04-08] MEDS: Dyna-Hex 2% Top Sol 2oz TOPIC SCH (20:48)
[2020-04-08] MEDS ORDERED: Heparin 5000 units/ml inj SUBQ SCH (21:00)
[2020-04-09] VITALS (59 sets, daily range): BP systolic 54–165; BP diastolic 28–133
--- NOTE | 2020-04-09 | NUR ---
NURSE NOTES: LEVO DRIP STARED AT 20 MGG /MIN
[2020-04-09] MEDS ORDERED: Vancomycin 1 GM in D5W 275 ML IV SCH (00:30)
--- NOTE | 2020-04-09 04:00 | NUR ---
NURSE NOTES: COMPLETE BED BATH AND WOUND CARE DONE
[2020-04-09 05:46] LABS: HEMATOCRIT 33.9 % (37.0-47.0); HEMOGLOBIN 11.1 G/DL (12.0-16.0); MEAN CORPUSCULAR VOLUME 87 FL (80-99); PLATELET COUNT 386 K/UL (150-450); RED BLOOD COUNT 3.91 M/UL (4.20-5.40); RED CELL DISTRIBUTION WIDTH 13.1 % (11.6-14.8)
--- NOTE | 2020-04-09 06:00 | NUR ---
NURSE NOTES: bs 138 no insulin coverage
[2020-04-09 06:17] LABS: ALANINE AMINOTRANSFERASE 41 U/L (12-78); ALBUMIN 2.3 G/DL (3.4-5.0); ALBUMIN/GLOBULIN RATIO 0.7 (1.0-2.7); ALKALINE PHOSPHATASE 69 U/L (46-116); ANION GAP 13 mmol/L (5-15); ASPARTATE AMINO TRANSFERASE 73 U/L (15-37); BILIRUBIN,TOTAL 0.4 MG/DL (0.2-1.0); BLOOD UREA NITROGEN 22 mg/dL (7-18); CALCIUM 7.7 MG/DL (8.5-10.1); CARBON DIOXIDE 22 MMOL/L (21-32); CHLORIDE 112 MMOL/L (98-107); CREATININE 0.6 MG/DL (0.55-1.30); POTASSIUM 3.5 MMOL/L (3.5-5.1); SODIUM 147 MMOL/L (136-145)
[2020-04-09] MEDS ORDERED: Fleet's Mineral Oil Enema RECTAL SCH (07:15)
--- NOTE | 2020-04-09 07:25 | NUR ---
NURSE NOTES: Patient received from VARUN Garcia.Patient asleep, easily arousal to verbal and tactile stimuli.Remains on NC and saturate at 95%.On airborne droplet precaution for positive COVID.Good handwashing done before and after care. Patient noted with low grade fever and cooling measure applied.No apparent acute distress.Right femoral TLC running Levophed at 10mcg/hr and 1/2 NS +20kcl at 100cc/hr.Patient SR on the monitor HR 90.Patient with sacral wound and P200 ordered.Lowe catheter in place with hematuria. HOB elevated to prevent aspiration.Will continue same plan of care.
--- NOTE | 2020-04-09 07:30 | NUR ---
NURSE HAND-OFF REPORT: Latest Vital Signs: Temperature 99.8 , Pulse 96 , B/P 124 /66 , Respiratory Rate 19 , O2 SAT 96 , Room Air, O2 Flow Rate 2.0 . Vital Sign Comment: EKG Rhythm: Sinus Rhythm Rhythm change?: N MD Notified?: - MD Response: Latest Ortega Fall Score: 45 Fall Risk: High Risk Safety Measures: Call light Within Reach, Bed Alarm Zone 2, Side Rails Side Rails x2, Bed position Low and Locked. Fall Precautions: Yellow Socks Yellow Gown Door Sign Patient Fall Education Report given to mariya vaughan .
--- NOTE | 2020-04-09 08:05 | Pulmonolgy Critical Care Note ---
Critical Care - Asmt/Plan Problems: (1) Hemorrhagic shock (2) Rectal bleeding (3) Hematuria (4) COVID-19 (5) Atrial fibrillation with RVR (6) History of CVA (cerebrovascular accident) Respiratory: monitor respiratory rate, adjust FIO2 Cardiac: continue pressors - levophed 10 ug Renal: F/U I&O, keep IV fluid, check electrolytes Infectious Disease: check cultures Gastrointestinal: hold feedings Endocrine: monitor blood sugar Hematologic: monitor H/H Neurologic: PRN Morphine Affect: PRN ativan Prophylaxis: Protonix, SCDs Time Spent (Minutes): 40 Notes Reviewed: kennel keeper, cardio, renal Discussed with: nurses, consultants, rehabilitation case coordinatorimmigration case manager - Objective Last 24 Hour Vital Signs Date Time Temp Pulse Resp B/P (MAP) Pulse Ox O2 Delivery O2 Flow Rate FiO2 04/09/20 07:15 96 19 124/66 (85) 96 04/09/20 07:00 125/62 04/09/20 07:00 99.8 100 18 114/63 (80) 96 04/09/20 06:30 87 17 130/58 (82) 95 04/09/20 06:15 86 17 124/69 (87) 95 04/09/20 06:00 110 16 147/73 (97) 97 04/09/20 06:00 147/73 04/09/20 06:00 123/60 04/09/20 05:58 102 18 138/72 (94) 93 04/09/20 05:45 84 18 151/64 (93) 94 04/09/20 05:30 83 19 123/60 (81) 94 04/09/20 05:15 85 18 127/106 (113) 94 04/09/20 05:00 77 17 152/133 (139) 96 04/09/20 04:45 82 15 165/66 (99) 92 04/09/20 04:30 85 17 125/58 (80) 96 04/09/20 04:15 87 18 122/64 (83) 94 04/09/20 04:00 99.4 92 17 127/60 (82) 95 04/09/20 04:00 127/60 04/09/20 04:00 69 04/09/20 04:00 Room Air 04/09/20 03:57 104/60 04/09/20 03:45 87 18 128/55 (79) 93 04/09/20 03:30 76 18 79/63 (68) 94 04/09/20 03:15 114 18 85/42 (56) 95 04/09/20 03:00 90 19 112/56 (74) 94 04/09/20 03:00 127/60 04/09/20 02:00 79/63 04/09/20 02:00 90 19 116/56 (76) 96 04/09/20 01:45 91 18 122/46 (71) 95 04/09/20 01:30 95 19 121/53 (75) 94 04/09/20 01:15 95 16 100/43 (62) 95 04/09/20 01:00 100/43 04/09/20 01:00 84 15 107/57 (74) 96 04/09/20 00:45 115 21 97 04/09/20 00:45 115 21 96/45 (62) 97 04/09/20 00:33 102 21 125/87 (100) 98 04/09/20 00:30 89 15 90/50 (63) 99 04/09/20 00:30 89 15 99 04/09/20 00:29 85 17 109/69 (82) 97 04/09/20 00:22 78 18 101/62 (75) 99 04/09/20 00:19 78 18 80/46 (57) 99 04/09/20 00:19 78 18 80/46 (57) 99 04/09/20 00:15 104 13 84/40 (55) 95 04/09/20 00:15 101/62 04/09/20 00:15 104 13 84/40 (55) 95 04/09/20 00:09 51/32 04/09/20 00:08 113 19 100/62 (75) 97 04/09/20 00:07 114 19 55/46 (49) 95 04/09/20 00:05 109 10 85/45 (58) 95 04/09/20 00:05 109 10 85/45 (58) 95 04/09/20 00:02 112 16 60/39 (46) 95 04/09/20 00:00 111 19 93 04/09/20 00:00 51/32 04/09/20 00:00 Room Air 04/09/20 00:00 105 04/09/20 00:00 98.5 111 19 90/56 (67) 93 04/08/20 23:00 109 17 94/50 (65) 94 04/08/20 22:00 106 16 81/45 (57) 92 04/08/20 21:00 98 11 71/54 (60) 94 04/08/20 20:47 118 04/08/20 20:00 110 04/08/20 20:00 98.5 112 15 80/32 (48) 97 04/08/20 20:00 Room Air 04/08/20 19:00 102 12 97/67 (77) 96 04/08/20 18:03 2.0 04/08/20 18:03 Nasal Cannula 2.0 04/08/20 18:00 99.1 121 12 93/55 (68) 100 04/08/20 17:35 98.7 114 15 93/55 96 Nasal Cannula 2.0 04/08/20 17:23 98.7 114 15 93/55 96 Nasal Cannula 2.0 04/08/20 17:00 98.7 125 15 102/51 100 Nasal Cannula 2.0 04/08/20 16:06 98.7 127 18 115/96 100 Nasal Cannula 2.0 04/08/20 15:04 98.8 160 18 104/62 95 Nasal Cannula 2.0 04/08/20 15:04 160 18 Nasal Cannula 2.0 04/08/20 15:00 98.8 160 18 104/62 (76) 95 Room Air Status: awake Condition: critical HEENT: atraumatic Lungs: clear Heart: HR/BP stable Abdomen: soft, active bowel sounds Extremities: no C/C/E Micro: Microbiology Date/Time Source Procedure Growth Status 04/08/20 15:55 Rectum Received 04/08/20 15:30 Nasopharynx SARS-CoV-2 RdRp Gene Assay - Final Complete Accucheck: 124 Critical Care - Subjective ROS Limited/Unobtainable: Yes ICU Day: 2 Interval Events: 64 year old with hx of CVA, Afib, on Plaviv, [facility] presented to ER with CC of rectal bleeding and hematuria. she was in rapid afib and hypotensive as well. I&O: Intake and Output 0 04/08/20 04/09/20 19:00 07:00 Intake Total 3294 ml 1184.375 ml Output Total 230 ml 1100 ml Balance 3064 ml 84.375 ml Intake IV Total 3294 ml 934.375 ml Blood Product 250 ml Output Urine Total 230 ml 950 ml Stool Total 150 ml # Bowel Movements 7 CXR: HOMER Labs: Laboratory Tests Test 04/08/20 15:30 04/08/20 15:55 04/08/20 16:40 04/08/20 20:30 White Blood Count 12.3 K/UL (4.8-10.8) H 9.5 K/UL (4.8-10.8) Red Blood Count 3.71 M/UL (4.20-5.40) L 2.58 M/UL (4.20-5.40) L Hemoglobin 10.5 G/DL (12.0-16.0) L 7.1 G/DL (12.0-16.0) #L Hematocrit 33.0 % (37.0-47.0) L 22.9 % (37.0-47.0) #L Mean Corpuscular Volume 89 FL (80-99) 89 FL (80-99) Mean Corpuscular Hemoglobin 28.3 PG (27.0-31.0) 27.5 PG (27.0-31.0) Mean Corpuscular Hemoglobin Concent 31.9 G/DL (32.0-36.0) L 30.9 G/DL (32.0-36.0) L Red Cell Distribution Width 14.1 % (11.6-14.8) 14.3 % (11.6-14.8) Platelet Count 412 K/UL (150-450) 262 K/UL (150-450) Mean Platelet Volume 6.6 FL (6.5-10.1) 6.4 FL (6.5-10.1) L Neutrophils (%) (Auto) 82.4 % (45.0-75.0) H % (45.0-75.0) Lymphocytes (%) (Auto) 10.1 % (20.0-45.0) L % (20.0-45.0) Monocytes (%) (Auto) 6.9 % (1.0-10.0) % (1.0-10.0) Eosinophils (%) (Auto) 0.1 % (0.0-3.0) % (0.0-3.0) Basophils (%) (Auto) 0.5 % (0.0-2.0) % (0.0-2.0) Prothrombin Time 12.3 SEC (9.30-11.50) H Prothromb Time International Ratio 1.1 (0.9-1.1) Activated Partial Thromboplast Time 25 SEC (23-33) D-Dimer 0.72 mg/L FEU (0.00-0.49) H Sodium Level 142 MMOL/L (136-145) Potassium Level 4.3 MMOL/L (3.5-5.1) Chloride Level 105 MMOL/L (98-107) Carbon Dioxide Level 27 MMOL/L (21-32) Blood Urea Nitrogen 32 mg/dL (7-18) H Creatinine 1.7 MG/DL (0.55-1.30) H Estimat Glomerular Filtration Rate 36.5 mL/min (>60) Glucose Level 135 MG/DL (74-106) H Osmolality 303 mOsm/kg (297-317) Lactic Acid Level 2.90 mmol/L (0.4-2.0) H 2.00 mmol/L (0.66-2.22) Uric Acid 5.8 MG/DL (2.6-7.2) Calcium Level 9.2 MG/DL (8.5-10.1) Phosphorus Level 3.7 MG/DL (2.5-4.9) Magnesium Level 2.4 MG/DL (1.8-2.4) Ferritin 927 NG/ML (8-388) H Total Bilirubin 0.4 MG/DL (0.2-1.0) Aspartate Amino Transf (AST/SGOT) 71 U/L (15-37) H Alanine Aminotransferase (ALT/SGPT) 37 U/L (12-78) Alkaline Phosphatase 79 U/L (46-116) Lactate Dehydrogenase 337 U/L (81-234) H Total Creatine Kinase 55 U/L (26-308) Creatine Kinase MB < 0.5 NG/ML (0.0-3.6) Creatine Kinase MB Relative Index 0.9 Troponin I 0.092 ng/mL (0.000-0.056) C-Reactive Protein, Quantitative 11.9 mg/dL (0.00-0.90) H Pro-B-Type Natriuretic Peptide 740 pg/mL (0-125) H Total Protein 6.6 G/DL (6.4-8.2) Albumin 2.4 G/DL (3.4-5.0) L Globulin 4.2 g/dL Albumin/Globulin Ratio 0.6 (1.0-2.7) L Lipase 76 U/L (73-393) Free Thyroxine 1.59 NG/DL (0.76-1.46) H Urine Color Red Urine Appearance Turbid Urine pH 8 (4.5-8.0) Urine Specific [place] 1.010 (1.005-1.035) Urine Protein 4+ (NEGATIVE) H Urine Glucose (UA) Negative (NEGATIVE) Urine Ketones 1+ (NEGATIVE) H Urine Blood 5+ (NEGATIVE) H Urine Nitrite Negative (NEGATIVE) Urine Bilirubin Negative (NEGATIVE) Urine Urobilinogen Normal MG/DL (0.0-1.0) Urine Leukocyte Esterase 1+ (NEGATIVE) H Urine RBC Tntc /HPF (0 - 2) H Urine WBC Tntc /HPF (0 - 2) H Urine Squamous Epithelial Cells Occasional /LPF Urine Bacteria Many /HPF (NONE) H Differential Total Cells Counted 100 Neutrophils % (Manual) 92 % (45-75) H Lymphocytes % (Manual) 3 % (20-45) L Monocytes % (Manual) 5 % (1-10) Eosinophils % (Manual) 0 % (0-3) Basophils % (Manual) 0 % (0-2) Band Neutrophils 0 % (0-8) Platelet Estimate Adequate Platelet Morphology Normal Polychromasia 1+ Hypochromasia 2+ Test 04/09/20 04:50 White Blood Count 17.0 K/UL (4.8-10.8) #H Red Blood Count 3.91 M/UL (4.20-5.40) L Hemoglobin 11.1 G/DL (12.0-16.0) #L Hematocrit 33.9 % (37.0-47.0) #L Mean Corpuscular Volume 87 FL (80-99) Mean Corpuscular Hemoglobin 28.4 PG (27.0-31.0) Mean Corpuscular Hemoglobin Concent 32.7 G/DL (32.0-36.0) Red Cell Distribution Width 13.1 % (11.6-14.8) Platelet Count 386 K/UL (150-450) Mean Platelet Volume 6.2 FL (6.5-10.1) L Neutrophils (%) (Auto) % (45.0-75.0) Lymphocytes (%) (Auto) % (20.0-45.0) Monocytes (%) (Auto) % (1.0-10.0) Eosinophils (%) (Auto) % (0.0-3.0) Basophils (%) (Auto) % (0.0-2.0) Neutrophils % (Manual) Pending Lymphocytes % (Manual) Pending Platelet Estimate Pending Platelet Morphology Pending Sodium Level 147 MMOL/L (136-145) H Potassium Level 3.5 MMOL/L (3.5-5.1) Chloride Level 112 MMOL/L (98-107) H Carbon Dioxide Level 22 MMOL/L (21-32) Anion Gap 13 mmol/L (5-15) Blood Urea Nitrogen 22 mg/dL (7-18) H Creatinine 0.6 MG/DL (0.55-1.30) # Estimat Glomerular Filtration Rate > 60 mL/min (>60) Glucose Level 167 MG/DL (74-106) H Calcium Level 7.7 MG/DL (8.5-10.1) L Total Bilirubin 0.4 MG/DL (0.2-1.0) Aspartate Amino Transf (AST/SGOT) 73 U/L (15-37) H Alanine Aminotransferase (ALT/SGPT) 41 U/L (12-78) Alkaline Phosphatase 69 U/L (46-116) Troponin I 0.140 ng/mL (0.000-0.056) Total Protein 5.7 G/DL (6.4-8.2) L Albumin 2.3 G/DL (3.4-5.0) L Globulin 3.4 g/dL Albumin/Globulin Ratio 0.7 (1.0-2.7) L Random Vancomycin Level 7.0 ug/mL Marina Buitrago MD Apr 09, 2020 08:05
--- NOTE | 2020-04-09 08:30 | NUR ---
NURSE NOTES: Dr Buitrago made aware troponin 0.140
[2020-04-09] MEDS ORDERED: Cefepime HCl 2 GM in D5W 110 ML IV SCH (09:00)
[2020-04-09] MEDS: D5 1/2NS w/KCl 20mEq 1,000 ML IV SCH ×3 (09:27→18:50)
[2020-04-09] MEDS: Pantoprazole 80 MG in NS 250 ML IV SCH ×2 (09:27→18:09)
--- NOTE | 2020-04-09 09:44 | History and Physical Report ---
DATE OF ADMISSION: 04/08/2020 CHIEF COMPLAINT: Transferred from nursing facility after she was found to have irregular heartbeat with hypotension, tachycardia, vaginal bleeding. HISTORY OF PRESENT ILLNESS: This is a 64-year-old very unfortunate female with past medical history significant for inoperable endometrial adenocarcinoma, status post brachytherapy in December 16, 2019 at [facility], history of hypertension, CVA, diabetes type 2, chronic lacunar infarction with bilateral basal ganglia and king radiata and left parietal lobe stroke, prior history of UTI, who presented to the hospital from nursing facility after was noted to have a COVID-19 positive two days ago. The patient today started to have irregular tachycardia with a heart rate of 160, associated vaginal bleeding and IV normal saline was started. Pressure was improved and however the patient was persistent to be tachycardic and subsequently the patient was noted to be altered than usual. Her baseline is alert and oriented x3, and she take care of herself without any assistance. Shortly after initial evaluation in the emergency department, the patient was admitted to the hospital with atrial fibrillation with rapid ventricular as well as hypotension and vaginal bleeding with severe anemia, most likely secondary to acute blood loss. PAST MEDICAL HISTORY/PAST SURGICAL HISTORY: As above. History of diabetes type 2, hypertension, dyslipidemia, urinary tract infection, history of inoperable endometrial adenocarcinoma, status post brachytherapy in December 16, 2019 at [facility], history of chronic lacunar infarction in bilateral basal ganglia and king radiata and left parietal lobe stroke. The patient has a history of an interstitial implant on December 16, 2019. MEDICATIONS: At the group home significant for acetaminophen, aspirin, atorvastatin, Plavix, docusate, melatonin, senna, Tylenol No. 3, Voltaren Gel and Zofran. ALLERGIES: No known drug allergies. SOCIAL HISTORY: The patient is a group home resident. No smoking, alcohol, or drugs. FAMILY HISTORY: Noncontributory. REVIEW OF SYSTEMS: Very limited secondary to the patient's status. The patient is altered than usual and cannot communicate appropriately. However, she denies any chest pain or shortness of breath. Complained about vaginal bleeding. Complained of weakness, fatigue. No fever or chills was reported. No nausea or vomiting. No diarrhea. However, the patient has been very weak and poor oral intake. PHYSICAL EXAMINATION: VITAL SIGNS: On admission from nursing facility, temperature 98.8, pulse of 160, respirations 18, and blood pressure 104/62. GENERAL: The patient awake, responsive, however altered and confused. The patient appears to be paler and chronically-ill appearing. HEAD AND NECK: Pupils are equal and reactive to light. Extraocular movements are intact. Neck was supple. No JVD. LUNGS: Bilateral air entry. Decreased air in the bases. HEART: S1, S2. Tachycardic, irregular. No murmur or gallop was appreciated. ABDOMEN: Soft, nondistended. Tenderness on the lower abdominal area. Mildly obese. EXTREMITIES: No cyanosis, clubbing, or edema. GENITOURINARY: The patient noted to have Lowe catheter with dark red urine collection in a Lowe catheter. NEUROLOGIC: Cranial nerves II through XII grossly intact. The patient moving all extremities equally. Sensory is intact. Gait was not able to assess due to the patient's status. RECTAL: Refused and deferred. PSYCHIATRIC: Mood and affect, unable to obtain due to the patient's status. LABORATORY AND DIAGNOSTIC DATA: Laboratory on admission from the emergency department, sodium 142, potassium 4.3, chloride 105, bicarb 27, BUN 32, creatinine 1.7, glucose is 135, calcium is 9.2, phosphorus is 3.7, magnesium 2.4. Ferritin is 927. AST of 71, ALT of 37, alkaline phosphatase of 79. Lactic dehydrogenase is 337. First troponin 0.092. C-reactive protein is 11.9. BNP of 740. Lipase is 79. PT of 12, INR 1.1, PTT of 25. D-dimer is 0.72. WBC of 12, hemoglobin of 10.5, hematocrit 33, platelet is 412. Urinalysis, +5 blood, +1 ketone, tainted rbc, tainted wbc, many bacteria, leukocyte esterase +1. COVID-19 test is positive. Chest x-ray, mild diffuse peribronchial thickening in the absence of the airspace consolidation, which is nonspecific, but can be seen in the inflammatory infectious airway disease in the appropriate clinical setting. CT scan of the abdomen and pelvis study limited due to lack of IV contrast. Pulmonary finding could be represented multifocal pneumonia or aspiration. This finding could also represent a viral pneumonia, although this is not highly specific . Correlation to the UTI due to the urinary bladder wall thickening, prominent rectal stool mild wall thickening could represent stercoral colitis in the appropriate context, diffuse large colonic stool burden would be a cause of the pain. Left superior renal pole ill-defined mild density could be, my suspicion for chronic medical renal disease in the proper setting. Consider outpatient CT adrenal gland to follow up evaluation of indeterminate left adrenal 1.2 cm nodularity. Calcified fibroid uterus and appendectomy ASSESSMENT: 1. COVID-19 pneumonia. 2. Altered mental status, most likely secondary to toxic metabolic encephalopathy. 3. Atrial fibrillation with rapid ventricular rate. 4. Anemia most likely secondary to acute blood loss. 5. Sepsis secondary to urinary tract infection as well as pneumonia. 6. Vaginal bleeding. 7. UTI. 8. History of diabetes type 2. 9. Inoperable endometrial adenocarcinoma, status post brachytherapy. 10. Hypertension. 11. History of lacunar infarction. PLAN: Admit the patient to ICU. We follow up with Dr. Buitrago, Pulmonary/Critical Care and Dr. Wale Wu from Cardiology. We will start the patient on broad-spectrum antibiotic with vancomycin and cefepime. Admit to [place] [id number] room. Code status is at this time Full Code. DVT prophylaxis SCD. We will follow up with duplex of lower extremity. At this time, we hold off aspirin and Plavix due to the vaginal bleeding as well as UTI, bloody hematuria. We will monitor laboratory closely. Type and cross transfuse 1 unit of packed RBC. Central line placement by the emergency department requested. We will start the patient on Levophed as needed to support the blood pressure as well as Cardizem drip will be placed on hold due to the hypotension and aggressive fluid resuscitation. Transfuse 1 unit of packed RBC if the repeat hemoglobin is less than 9. Dewayne Mendoza M.D. DR: JUANA/HILARIO JOB#: [id number] CC:
--- NOTE | 2020-04-09 10:07 | NUR ---
NURSE NOTES: No significant change and remains hemodynamically stable.Will continue close monitoring
[2020-04-09] MEDS ORDERED: Vancomycin 1.25gm/NS Premix IVPB ONE (11:30)
[2020-04-09] MEDS: NovoLOG Insulin Flexpen SUBQ SCH ×3 (11:30→21:00)
[2020-04-09 11:56] LABS: APPEARANCE,URINE VERY CLOUDY; BILIRUBIN, URINE NEGATIVE (NEGATIVE); GLUCOSE, URINE (UA) NEGATIVE (NEGATIVE); KETONES,URINE 2+ (NEGATIVE); LEUKOCYTE ESTERASE ,URINE 3+ (NEGATIVE); NITRITE,URINE NEGATIVE (NEGATIVE); PH,URINE 6 (4.5-8.0); PROTEIN,URINE 2+ (NEGATIVE); UROBILINOGEN,URINE NORMAL MG/DL (0.0-1.0)
[2020-04-09 12:02] LABS: COLOR,URINE RED
[2020-04-09] MEDS ORDERED: NS 275ml ONE (12:08)
[2020-04-09] MEDS ORDERED: NS 500ML ONE (12:08)
[2020-04-09] MEDS ORDERED: Tubing IV Secondary IV ONE (12:08)
--- NOTE | 2020-04-09 12:11 | NUR ---
NURSE NOTES: Patient noted with large clots blood coming from rectum.Dr Buitrago made aware with order to transfuse 1PRBC and CBC Q8hrs.Order noted and carried.Good perineal care done, patient turned and repositioned.Sister Sterling Jimenez made aware and update given. Will continue close monitoring Addendum: 04/09/20 at 1847 by Justa Stephens RN NURSE NOTES: Lowe catheter flushed with 50cc NS as ordered and patient tolerate well
--- NOTE | 2020-04-09 14:07 | NUR ---
NURSE NOTES: Adls done,turned and repositioned.No significant change.Will continue same plan of care. Awaiting blood for transfusion. Addendum: 04/09/20 at 1847 by Justa Stephens RN NURSE NOTES: Lowe catheter flushed with 50cc NS as ordered and patient tolerate well
--- NOTE | 2020-04-09 16:03 | NUR ---
NURSE NOTES: Blood transfusion started, verified by 2 nurses.No adverse reaction noted. Will continue to monitor
--- NOTE | 2020-04-09 16:30 | Internal Med Progress Note ---
Subjective Date of Service: Apr 09, 2020 Physician Name Tariq Murphy Attending Physician Dewayne Mendoza MD Current Medications Medications (Trade) Dose Ordered Sig/Jere Route PRN Reason Start Time Stop Time Status Last Admin Dose Admin Acetaminophen (Tylenol) 650 mg Q4H PRN ORAL fever 04/08/20 19:00 05/08/20 18:59 Albuterol/ Ipratropium (Albuterol/ Ipratropium) 3 ml Q4H PRN HHN Shortness of Breath 04/08/20 19:00 04/13/20 18:59 Aminocaproic Acid (Amicar) 1,000 mg Q4H ORAL 04/09/20 12:00 04/09/20 20:59 04/09/20 15:56 Cefepime HCl 2 gm/ Dextrose 110 ml @ 220 mls/hr Q12H IV 04/09/20 21:00 04/16/20 20:59 Chlorhexidine Gluconate (Geno-Hex 2%) 1 applic DAILY@2000 TOPIC 04/08/20 20:00 07/07/20 19:59 04/08/20 20:48 Dextrose (Dextrose 50%) 25 ml Q30M PRN IV Hypoglycemia 04/09/20 07:45 07/08/20 07:44 Dextrose (Dextrose 50%) 50 ml Q30M PRN IV Hypoglycemia 04/09/20 07:45 07/08/20 07:44 Dextrose/ Electrolytes 1,000 ml @ 100 mls/hr Q10H IV 04/08/20 22:30 05/08/20 22:29 04/09/20 09:27 Diltiazem HCl 125 ml @ 0 mls/hr Q24H IVPB 04/08/20 19:03 04/09/20 19:03 Insulin Aspart (NovoLOG) BEFORE MEALS AND HS SUBQ 04/09/20 11:30 07/08/20 11:29 Metoprolol Tartrate (Lopressor) 5 mg Q1H PRN IVP spb more than 120 04/08/20 19:00 07/07/20 18:59 Norepinephrine Bitartrate 8 mg/ Sodium Chloride 250 ml @ 0 mls/hr Q24H IV 04/08/20 19:09 05/08/20 19:08 04/09/20 03:57 Ondansetron HCl (Zofran) 4 mg Q6H PRN IVP Nausea & Vomiting 04/08/20 19:00 05/08/20 18:59 Pantoprazole 80 mg/Sodium Chloride 250 ml @ 25 mls/hr Q10H IV 04/09/20 09:30 05/09/20 09:29 04/09/20 09:27 Polyethylene Glycol (Miralax) 17 gm BEDTIME ORAL 04/09/20 21:00 05/09/20 20:59 Polyethylene Glycol (Miralax) 17 gm DAILYPRN PRN ORAL Constipation 04/08/20 19:00 05/08/20 18:59 Temazepam (Restoril) 15 mg HSPRN PRN ORAL Insomnia 04/08/20 19:00 04/15/20 18:59 Vancomycin HCl (Vanco pharmacy to dose) 1 ea DAILY PRN MISC . 04/08/20 19:15 05/08/20 19:14 Vancomycin HCl 750 mg/Sodium Chloride 275 ml @ 183.333 mls/hr Q12H IVPB 04/09/20 23:00 04/13/20 22:59 Allergies: Coded Allergies: No Known Allergies (Unverified , 03/11/19) ROS Limited/Unobtainable: Yes Subjective 64 YO F with inoperable uterine cancer admitted with tachycardia. Now atrial fibrillation with rapid ventricular rate. Also COVID 19 positive. Cover for Int Med-DR Mendoza. ICU Objective Last Vital Signs Date Time Temp Pulse Resp B/P (MAP) Pulse Ox O2 Delivery O2 Flow Rate FiO2 04/09/20 16:00 98.5 106 17 122/50 (74) 96 04/09/20 16:00 Room Air 04/08/20 18:03 2.0 Laboratory Tests Test 04/08/20 16:40 04/08/20 20:30 04/09/20 04:50 04/09/20 08:00 Lactic Acid Level 2.00 mmol/L (0.66-2.22) White Blood Count 9.5 K/UL (4.8-10.8) 17.0 K/UL (4.8-10.8) #H Red Blood Count 2.58 M/UL (4.20-5.40) L 3.91 M/UL (4.20-5.40) L Hemoglobin 7.1 G/DL (12.0-16.0) #L 11.1 G/DL (12.0-16.0) #L Hematocrit 22.9 % (37.0-47.0) #L 33.9 % (37.0-47.0) #L Mean Corpuscular Volume 89 FL (80-99) 87 FL (80-99) Mean Corpuscular Hemoglobin 27.5 PG (27.0-31.0) 28.4 PG (27.0-31.0) Mean Corpuscular Hemoglobin Concent 30.9 G/DL (32.0-36.0) L 32.7 G/DL (32.0-36.0) Red Cell Distribution Width 14.3 % (11.6-14.8) 13.1 % (11.6-14.8) Platelet Count 262 K/UL (150-450) 386 K/UL (150-450) Mean Platelet Volume 6.4 FL (6.5-10.1) L 6.2 FL (6.5-10.1) L Neutrophils (%) (Auto) % (45.0-75.0) % (45.0-75.0) Lymphocytes (%) (Auto) % (20.0-45.0) % (20.0-45.0) Monocytes (%) (Auto) % (1.0-10.0) % (1.0-10.0) Eosinophils (%) (Auto) % (0.0-3.0) % (0.0-3.0) Basophils (%) (Auto) % (0.0-2.0) % (0.0-2.0) Differential Total Cells Counted 100 100 Neutrophils % (Manual) 92 % (45-75) H 85 % (45-75) H Lymphocytes % (Manual) 3 % (20-45) L 9 % (20-45) L Monocytes % (Manual) 5 % (1-10) 5 % (1-10) Eosinophils % (Manual) 0 % (0-3) 0 % (0-3) Basophils % (Manual) 0 % (0-2) 0 % (0-2) Band Neutrophils 0 % (0-8) 0 % (0-8) Platelet Estimate Adequate Adequate Platelet Morphology Normal Normal Polychromasia 1+ Hypochromasia 2+ Myelocytes % 1 % (0-0) H Red Blood Cell Morphology Normal Sodium Level 147 MMOL/L (136-145) H Potassium Level 3.5 MMOL/L (3.5-5.1) Chloride Level 112 MMOL/L (98-107) H Carbon Dioxide Level 22 MMOL/L (21-32) Anion Gap 13 mmol/L (5-15) Blood Urea Nitrogen 22 mg/dL (7-18) H Creatinine 0.6 MG/DL (0.55-1.30) # Estimat Glomerular Filtration Rate > 60 mL/min (>60) Glucose Level 167 MG/DL (74-106) H Calcium Level 7.7 MG/DL (8.5-10.1) L Total Bilirubin 0.4 MG/DL (0.2-1.0) Aspartate Amino Transf (AST/SGOT) 73 U/L (15-37) H Alanine Aminotransferase (ALT/SGPT) 41 U/L (12-78) Alkaline Phosphatase 69 U/L (46-116) Troponin I 0.140 ng/mL (0.000-0.056) Total Protein 5.7 G/DL (6.4-8.2) L Albumin 2.3 G/DL (3.4-5.0) L Globulin 3.4 g/dL Albumin/Globulin Ratio 0.7 (1.0-2.7) L Random Vancomycin Level 7.0 ug/mL Urine Color Red Urine Appearance Very cloudy Urine pH 6 (4.5-8.0) Urine Specific [place] 1.010 (1.005-1.035) Urine Protein 2+ (NEGATIVE) H Urine Glucose (UA) Negative (NEGATIVE) Urine Ketones 2+ (NEGATIVE) H Urine Blood 5+ (NEGATIVE) H Urine Nitrite Negative (NEGATIVE) Urine Bilirubin Negative (NEGATIVE) Urine Urobilinogen Normal MG/DL (0.0-1.0) Urine Leukocyte Esterase 3+ (NEGATIVE) H Urine RBC Tntc /HPF (0 - 2) H Urine WBC 10-15 /HPF (0 - 2) H Urine Squamous Epithelial Cells None /LPF (NONE/OCC) Urine Bacteria Occasional /HPF (NONE) Urine Eosinophils None seen (NONE SEEN) Urine Osmolality 497 mOsm/kg (429-449) H Microbiology Date/Time Source Procedure Growth Status 04/08/20 15:55 Rectum Received 04/08/20 15:30 Nasopharynx SARS-CoV-2 RdRp Gene Assay - Final Complete Intake and Output 04/08/20 04/09/20 19:00 07:00 Intake Total 3294 ml 1184.375 ml Output Total 230 ml 1100 ml Balance 3064 ml 84.375 ml Intake IV Total 3294 ml 934.375 ml Blood Product 250 ml Output Urine Total 230 ml 950 ml Stool Total 150 ml # Bowel Movements 7 Objective PHYSICAL EXAMINATION: GENERAL: The patient awake, responsive, however altered and confused. The patient appears to be paler and chronically-ill appearing. HEAD AND NECK: Pupils are equal and reactive to light. Extraocular movements are intact. Neck was supple. No JVD. LUNGS: Bilateral air entry. Decreased air in the bases. HEART: S1, S2. Tachycardic, irregular. No murmur or gallop was appreciated. ABDOMEN: Soft, nondistended. Tenderness on the lower abdominal area. Mildly obese. EXTREMITIES: No cyanosis, clubbing, or edema. GENITOURINARY: The patient noted to have Lowe catheter with dark red urine collection in a Lowe catheter. NEUROLOGIC: Cranial nerves II through XII grossly intact. The patient moving all extremities equally. Sensory is intact. Gait was not able to assess due to the patient's status. RECTAL: Refused and deferred. PSYCHIATRIC: Mood and affect, unable to obtain due to the patient's status. Assessment/Plan Assessment/Plan ASSESSMENT: 1. COVID-19 pneumonia. 2. Altered mental status, most likely secondary to toxic metabolic encephalopathy. 3. Atrial fibrillation with rapid ventricular rate. 4. Anemia most likely secondary to acute blood loss. 5. Sepsis secondary to urinary tract infection as well as pneumonia. 6. Vaginal bleeding. 7. UTI. 8. History of diabetes type 2. 9. Inoperable endometrial adenocarcinoma, status post brachytherapy. 10. Hypertension. 11. History of lacunar infarction. PLAN: Admit the patient to ICU. We follow up with Dr. Buitrago, Pulmonary/Critical Care and Dr. Wale Wu from Cardiology. We will start the patient on broad-spectrum antibiotic with vancomycin and cefepime. Admit to droplet isolation [place] [id number] room. Code status is at this time Full Code. DVT prophylaxis SCD. We will follow up with duplex of lower extremity. At this time, we hold off aspirin and Plavix due to the vaginal bleeding as well as UTI, bloody hematuria. We will monitor laboratory closely. Type and cross transfuse 1 unit of packed RBC. Central line placement by the emergency department requested. We will start the patient on Levophed as needed to support the blood pressure as well as Cardizem drip will be placed on hold due to the hypotension and aggressive fluid resuscitation. Transfuse 1 unit of packed RBC if the repeat hemoglobin is less than 9. Tariq Murphy MD Apr 09, 2020 16:30
--- NOTE | 2020-04-09 16:47 | Consultation ---
Consult Note Consult Note Cardiology for Dr Wu Full consult dictated # [id number] Cassie Montes MD Apr 09, 2020 16:47
--- NOTE | 2020-04-09 18:00 | Consultation ---
DATE OF CONSULTATION: 04/09/2020 CARDIOLOGY CONSULT This is a coverage for Dr. Wu. REASON FOR CONSULT: Atrial fibrillation with rapid ventricular rate. HISTORY OF PRESENT ILLNESS: History is obtained from the chart as the patient is currently on COVID isolation. The patient is a 64-year-old woman, convalescent home resident, who tested positive for COVID-19 two days prior to presentation at the [facility]. On the day of admission, she was noted to have a rapid heart rate. Paramedics were called and her heart rate was 160, irregular. Blood pressure was reported to be 80 systolic. She was given intravenous fluids with improvement in her blood pressure and transferred to the emergency room. She is currently on COVID isolation. There is no previous history of arrhythmia. She has a history of hypertension and diabetes. MEDICATIONS: Currently vancomycin 750 mg IV q.12h, cefepime 2 g IV q.12h., Amicar 1000 mg q.4h., insulin sliding scale, Protonix 80 mg IV q.10h., diltiazem infusion (discontinued), Lopressor 5 mg IV q.1h. p.r.n., temazepam p.r.n., Zofran p.r.n., Tylenol p.r.n. ALLERGIES: No known drug allergies. PAST MEDICAL HISTORY: As noted above, history of hypertension, diabetes, previous CVA, UTIs, colitis, endometrial carcinoma treated with a brachytherapy in November 2019, previous CVAs. SOCIAL HISTORY/REVIEW OF SYSTEMS: Not obtainable from the patient or chart. PHYSICAL EXAMINATION: VITAL SIGNS: Blood pressure is 122/50, pulse 106, regular with frequent irregular beats. Respirations 17. Afebrile. GENERAL: Alert, well-developed woman, in no acute distress. Remainder of exam deferred due to COVID isolation. LABORATORY DATA: Hemoglobin 11.1, hematocrit 33, white blood count 17,000, platelets 386,000. Sodium 147, potassium 3.5, chloride 112, bicarbonate 22, BUN 22, creatinine 0.6, glucose 167, troponin 0.140, on admission 0.092. Urinalysis cloudy, 3+ leukocyte esterase, hiz-qhewozhu-gg-count, red blood cells, and 10-15 white blood cells. Chest x-ray shows normal cardiac silhouette, no infiltrates, effusions, or edema. EKG is read as atrial flutter and atrial fibrillation (paramedics EKG). However, it shows a regular narrow-complex tachycardia with a rate of 173 beats per minute, which appears to be normal sinus, sinus tachycardia, nonspecific ST-segment changes (depression in 1, 2, 3, and aVF as well as V4 and V5). ASSESSMENT AND RECOMMENDATIONS: The patient is a 64-year-old woman with unresectable endometrial adenocarcinoma, status post brachytherapy in November of this year, hypertension, diabetes, and previous CVA, who is COVID positive. She is a convalescent home resident. She was transferred from the convalescent home yesterday with tachycardia, hypotension, and vaginal bleeding. Her EKG, although read as rapidly conducted atrial fibrillation, appears to be sinus tachycardia with PACs. She was severely anemic on admission with hemoglobin of 7 and has been transfused 3 units of packed red blood cells. She had a mild elevation of troponin, which is likely due to demand ischemia in the setting of anemia. She has had an echo done showing normal left ventricular systolic function without wall motion abnormalities, though this was a technically difficult study. I would favor intravenous fluid hydration, evaluation for bleeding source, and supportive care. She does not have evidence for atrial fibrillation at this time. I will check an additional EKG and continue to follow serial troponin levels. We would maintain hemoglobin level greater than 7 to 8. Further recommendations for her treatment will be made based on her clinical course. Dr. Wu will continue to follow her starting 04/11/2020. Cassie Montes M.D. DR: MORE JOB#: [id number] CC:
[2020-04-09] MEDS ORDERED: DICLOFENAC SOD100 GM TP (18:05)
[2020-04-09] MEDS ORDERED: ACETAMINOPHEN325 M1 ORAL (18:05)
[2020-04-09] MEDS ORDERED: TUBERSOL (PPD)0.1 ML IDERMAL (18:05)
[2020-04-09] MEDS ORDERED: MAGNESIUM400 M1 PO (18:05)
[2020-04-09] MEDS ORDERED: ATORVASTATIN CA80 MG ORAL (18:05)
[2020-04-09] MEDS ORDERED: MIRTAZAPINE30 MG ORAL (18:05)
[2020-04-09] MEDS ORDERED: KRILL OIL500 MG PO (18:05)
--- NOTE | 2020-04-09 18:37 | NUR ---
NURSE NOTES: Blood transfusion completed with no ADR noted.Adls done and patient still noted with large amount of blood clot through the rectum and hematuria.No s/s acute distress, will continue close monitoring.Call light within easy reach
[2020-04-09] MEDS: dilTIAZem Premix 125mg/125ml 125 ML IVPB SCH (18:50)
--- NOTE | 2020-04-09 19:40 | NUR ---
NURSE NOTES: Received report from VARUN Marr. Pt is resting on the bed and awake and forgetful. AOx2. On RA and SaO2 96% noted and applied O2 2L via nasal cannula. Still noted on & off coughing with sputum. On NPO. Pt has Lowe cath and patent and still noted hematuria with dark red color. Dressing is clean and dry on wound area. Iv site intact and no sign of infiltration noted. Pt has Rt. femoral TLC and dressing is clean and dry. on running with Protonix drip @ 25cc/hr and D51/2NS+KCL 20mEq @ 100cc/hr and off the Levophed drip. No fever. Changed position. Placed fall precaution. On proper isolation for COVID-19. Will continue to monitor any change of condition.
--- NOTE | 2020-04-09 19:45 | NUR ---
HAND-OFF: Report given to VARUN Montes De Oca.
[2020-04-09] MEDS: Dyna-Hex 2% Top Sol 2oz TOPIC SCH (20:18)
[2020-04-09] MEDS: Cefepime HCl 2 GM in D5W 110 ML IV SCH (20:23)
[2020-04-09] MEDS: Miralax 17gm pkt ORAL SCH (21:00)
[2020-04-09 21:03] LABS: HEMOGLOBIN 10.5 G/DL (12.0-16.0); MEAN CORPUSCULAR VOLUME 89 FL (80-99); PLATELET COUNT 248 K/UL (150-450); RED BLOOD COUNT 3.59 M/UL (4.20-5.40); RED CELL DISTRIBUTION WIDTH 13.6 % (11.6-14.8); WHITE BLOOD COUNT 15.6 K/UL (4.8-10.8)
--- NOTE | 2020-04-09 22:00 | NUR ---
NURSE NOTES: Pt is resting on the bed and no sign of cardia/respiratory acute distress noted. SaO2 100% with O2 2L via nasal cannula. Still noted hematuria via Lowe. Lowe irrigation was done. Noted Hgb 10.5. Will continue to monitor sign of bleeding. Changed position. Provided good sleep environment. Placed fall precaution. Will continue to care plan.
[2020-04-09] MEDS ORDERED: Vancomycin 750mg/NS 275ml IVPB SCH ×2 (23:00)
[2020-04-10] VITALS (24 sets, daily range): BP systolic 94–149; BP diastolic 34–78
--- NOTE | 2020-04-10 | NUR ---
NURSE NOTES: Pt is resting on the bed and awake and forgetful. SaO2 100% with O2 2L via nasal cannula. No fever. BP is stable. changed position. Placed fall precaution. Provided good sleep environment. Will continue to care plan.
--- NOTE | 2020-04-10 02:00 | NUR ---
NURSE NOTES: Pt is sleeping on the bed and SaO2 100% with O2 2L via nasal cannula. Still noted hematuria via Lowe cath. BP is stable. Placed fall precaution. Will continue to monitor any change of condition.
[2020-04-10] MEDS: D5 1/2NS w/KCl 20mEq 1,000 ML IV SCH ×2 (03:14→11:35)
[2020-04-10] MEDS: Pantoprazole 80 MG in NS 250 ML IV SCH (03:49)
--- NOTE | 2020-04-10 04:00 | NUR ---
NURSE NOTES: Given Bed bath. Cleaned Pt and applied lotion and cream. Changed wound dressing. Irrigated Lowe cath with NS and still noted. blood clot and hematuria. No active vaginal or rectal bleeding noted at this time. Denied pain at this time. No fever. Changed position. Placed fall precaution. Will continue to monitor any change of condition.
[2020-04-10 04:47] LABS: HEMATOCRIT 25.4 % (37.0-47.0); HEMOGLOBIN 8.6 G/DL (12.0-16.0); MEAN CORPUSCULAR VOLUME 85 FL (80-99); PLATELET COUNT 194 K/UL (150-450); RED BLOOD COUNT 2.97 M/UL (4.20-5.40); WHITE BLOOD COUNT 10.5 K/UL (4.8-10.8)
--- NOTE | 2020-04-10 06:00 | NUR ---
NURSE NOTES: Pt is sleeping on the bed. On electrical superintendent with SR. BP is stable. SaO2 99-100% with O2 2L via nasal cannula. Still noted hematuria via Lowe cath. Changed position. Will continue to monitor any change of condition.
[2020-04-10] MEDS: NovoLOG Insulin Flexpen SUBQ SCH ×4 (06:30→21:00)
--- NOTE | 2020-04-10 06:30 | NUR ---
NURSE NOTES: Left message to Dr. Buitrago regarding MRSA in nares, VRE rectum and 2 bottle of blood culture gram positive cocci. and awaiting call back.
[2020-04-10 07:10] LABS: ALANINE AMINOTRANSFERASE 41 U/L (12-78); ALBUMIN 1.8 G/DL (3.4-5.0); ALBUMIN/GLOBULIN RATIO 0.7 (1.0-2.7); ALKALINE PHOSPHATASE 49 U/L (46-116); ANION GAP 7 mmol/L (5-15); ASPARTATE AMINO TRANSFERASE 54 U/L (15-37); BILIRUBIN,TOTAL 0.3 MG/DL (0.2-1.0); BLOOD UREA NITROGEN 9 mg/dL (7-18); CALCIUM 7.5 MG/DL (8.5-10.1); CARBON DIOXIDE 24 MMOL/L (21-32); CHLORIDE 110 MMOL/L (98-107); CREATININE 0.6 MG/DL (0.55-1.30); PHOSPHORUS 1.2 MG/DL (2.5-4.9); POTASSIUM 3.2 MMOL/L (3.5-5.1); SODIUM 141 MMOL/L (136-145)
--- NOTE | 2020-04-10 07:20 | NUR ---
NURSE HAND-OFF REPORT: Latest Vital Signs: Temperature 98.5 , Pulse 88 , B/P 131 /51 , Respiratory Rate 18 , O2 SAT 99 , Room Air, O2 Flow Rate 2.0 . EKG Rhythm: Sinus Rhythm Rhythm change?: N Latest Ortega Fall Score: 45 Fall Risk: High Risk Safety Measures: Call light Within Reach, Bed Alarm Zone 2, Side Rails Side Rails x2, Bed position Low and Locked. Fall Precautions: Yellow Socks Yellow Gown Door Sign Patient Fall Education Report given to VARUN Linn. Pt is sleeping on the bed and V/S stable. Still noted hematuria via Lowe cath.
--- NOTE | 2020-04-10 07:22 | NUR ---
NURSE NOTES: Received report from VARUN Montes De Oca. Pt is resting on the bed with her eyes closed, sleeping, easily arousable. Pt is forgetful and confused at times; however reorientable. HR 89 SR on desk monitor. On O2 2L via nasal cannula, with O2sat 100%. Pt remains NPO at this time. Pt has a mcmanus catheter, patent and draining to urometer with hematuria noted. Dressing is clean and dry on wound area. PIV Lt AC #18g and Rt hand #18g. Pt has Rt femoral TLC and dressing is clean and dry; running Protonix drip @ 25mL/hr and D5 1/2NS+KCL 20mEq @ 100mL/hr. Bed locked and in lowest position, with call light within reach. 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 Will continue to monitor any change of condition.
[2020-04-10] MEDS ORDERED: Amiodarone 200mg tab ORAL SCH (09:00)
--- NOTE | 2020-04-10 09:00 | NUR ---
NURSE NOTES: Pt awake and alert, soft spoken. Pt reported she felt warm (temp 100.0), blankets taken off of pt for now.
[2020-04-10] MEDS: Cefepime HCl 2 GM in D5W 110 ML IV SCH ×2 (09:32→20:41)
--- NOTE | 2020-04-10 10:00 | NUR ---
NURSE NOTES: Dr Buitrago at bedside assessing pt/ Updated him on pt's current condition. Hematuria still noted in urometer. No rectal bleeding noted at this time.
--- NOTE | 2020-04-10 10:08 | Pulmonolgy Critical Care Note ---
Critical Care - Asmt/Plan Problems: (1) Hemorrhagic shock (2) Rectal bleeding (3) Sepsis (4) COVID-19 (5) Hematuria (6) Atrial fibrillation with RVR (7) History of CVA (cerebrovascular accident) Respiratory: monitor respiratory rate, adjust FIO2 Cardiac: continue to monitor HR/BP Renal: F/U I&O, keep IV fluid, check electrolytes Infectious Disease: check cultures Gastrointestinal: hold feedings Endocrine: monitor blood sugar Hematologic: monitor H/H, transfuse if hgb<8.5, other - received 2 units of prbc Neurologic: PRN Ativan, PRN Morphine, keep patient comfortable Prophylaxis: Protonix, Heparin Disposition: keep in ICU Time Spent (Minutes): 40 Notes Reviewed: social director, cardio, renal Discussed with: nurses, consultants, case management specialistassistant case manager - Objective Last 24 Hour Vital Signs Date Time Temp Pulse Resp B/P (MAP) Pulse Ox O2 Delivery O2 Flow Rate FiO2 04/10/20 07:15 99 Nasal Cannula 2.0 28 04/10/20 07:00 88 18 131/51 (77) 99 04/10/20 06:00 80 16 129/46 (73) 100 04/10/20 05:00 87 16 96/41 (59) 100 04/10/20 04:00 Room Air 04/10/20 04:00 98.5 85 18 112/40 (64) 100 04/10/20 04:00 97 04/10/20 03:00 91 16 101/48 (65) 100 04/10/20 02:00 91 17 133/66 (88) 100 04/10/20 01:00 87 16 109/59 (76) 100 04/10/20 00:00 102 04/10/20 00:00 98.5 84 17 106/64 (78) 100 04/10/20 00:00 Room Air 04/09/20 23:00 87 16 122/58 (79) 100 04/09/20 22:00 87 15 100/46 (64) 99 04/09/20 21:00 89 20 115/54 (74) 100 04/09/20 20:00 98.8 85 18 100/78 (85) 96 04/09/20 20:00 Room Air 04/09/20 20:00 83 04/09/20 19:30 99 Nasal Cannula 2.0 28 04/09/20 19:00 83 15 118/49 (72) 96 04/09/20 18:03 2.0 04/09/20 18:00 88 15 98/51 (67) 98 04/09/20 17:00 94 19 111/57 (75) 89 04/09/20 16:00 98.5 106 17 122/50 (74) 96 04/09/20 16:00 Room Air 04/09/20 16:00 106 04/09/20 15:00 100 18 118/56 (76) 96 04/09/20 14:30 100 18 117/53 (74) 95 04/09/20 14:00 110 19 106/86 (93) 95 04/09/20 13:30 18 123/56 (78) 98 04/09/20 13:00 98.5 97 18 123/56 (78) 96 04/09/20 12:30 102 21 121/57 (78) 96 04/09/20 12:00 115 18 107/60 (76) 97 04/09/20 12:00 Room Air 04/09/20 12:00 112 04/09/20 11:30 111 18 129/70 (89) 96 04/09/20 11:00 109 18 126/55 (78) 96 04/09/20 10:30 94/44 04/09/20 10:30 108 17 162/75 (104) 96 Status: awake Condition: improving HEENT: atraumatic Neck: full ROM Heart: HR/BP stable Abdomen: soft, active bowel sounds Extremities: no C/C/E Micro: Microbiology Date/Time Source Procedure Growth Status 04/09/20 08:00 Urine,Clean Catch Urine Culture - Preliminary NO GROWTH Resulted 04/08/20 15:55 Rectum VRE Culture - Final Enterococcus Faecium - Vre Complete 04/08/20 15:55 Rectum Received 04/08/20 15:55 Urine,Clean Catch Urine Culture - Preliminary Strep Species, Gamma-Hemolytic Gram Negative Arturo Resulted 04/08/20 15:55 Nasal Nares MRSA Culture - Final Staphylococcus Aureus - Mrsa Complete 04/08/20 15:30 Nasopharynx SARS-CoV-2 RdRp Gene Assay - Final Complete 04/08/20 15:30 Blood Blood Culture - Preliminary Gram Positive Cocci Resulted 04/08/20 15:15 Blood Blood Culture - Preliminary Gram Positive Cocci Resulted Accucheck: 94 Critical Care - Subjective ROS Limited/Unobtainable: Yes Condition: critical EKG Rhythm: Sinus Rhythm FI02: 28 I&O: Intake and Output 04/09/20 04/10/20 19:00 07:00 Intake Total 2545.05 ml 1840.500 ml Output Total 1310 ml 1700 ml Balance 1235.05 ml 140.500 ml Intake IV Total 2445.05 ml 1840.500 ml Other 100 ml Output Urine Total 1310 ml 1700 ml # Bowel Movements 6 CXR: clear Labs: Laboratory Tests Test 04/09/20 20:10 04/10/20 04:00 04/10/20 05:00 04/10/20 05:48 White Blood Count 15.6 K/UL (4.8-10.8) H 10.5 K/UL (4.8-10.8) Red Blood Count 3.59 M/UL (4.20-5.40) L 2.97 M/UL (4.20-5.40) L Hemoglobin 10.5 G/DL (12.0-16.0) L 8.6 G/DL (12.0-16.0) L Hematocrit 32.0 % (37.0-47.0) L 25.4 % (37.0-47.0) L Mean Corpuscular Volume 89 FL (80-99) 85 FL (80-99) Mean Corpuscular Hemoglobin 29.2 PG (27.0-31.0) 29.0 PG (27.0-31.0) Mean Corpuscular Hemoglobin Concent 32.7 G/DL (32.0-36.0) 33.9 G/DL (32.0-36.0) Red Cell Distribution Width 13.6 % (11.6-14.8) 13.0 % (11.6-14.8) Platelet Count 248 K/UL (150-450) 194 K/UL (150-450) Mean Platelet Volume 6.7 FL (6.5-10.1) 5.9 FL (6.5-10.1) L Neutrophils (%) (Auto) % (45.0-75.0) % (45.0-75.0) Lymphocytes (%) (Auto) % (20.0-45.0) % (20.0-45.0) Monocytes (%) (Auto) % (1.0-10.0) % (1.0-10.0) Eosinophils (%) (Auto) % (0.0-3.0) % (0.0-3.0) Basophils (%) (Auto) % (0.0-2.0) % (0.0-2.0) Differential Total Cells Counted 100 100 Neutrophils % (Manual) 86 % (45-75) H 88 % (45-75) H Lymphocytes % (Manual) 9 % (20-45) L 7 % (20-45) L Monocytes % (Manual) 4 % (1-10) 5 % (1-10) Eosinophils % (Manual) 0 % (0-3) 0 % (0-3) Basophils % (Manual) 0 % (0-2) 0 % (0-2) Myelocytes % 1 % (0-0) H Band Neutrophils 0 % (0-8) 0 % (0-8) Platelet Estimate Adequate Adequate Platelet Morphology Normal Normal Red Blood Cell Morphology Normal Hypochromasia 1+ Erythrocyte Sedimentation Rate 30 MM/HR (0-30) Reticulocyte Count Pending Sodium Level 141 MMOL/L (136-145) Potassium Level 3.2 MMOL/L (3.5-5.1) L Chloride Level 110 MMOL/L (98-107) H Carbon Dioxide Level 24 MMOL/L (21-32) Anion Gap 7 mmol/L (5-15) Blood Urea Nitrogen 9 mg/dL (7-18) Creatinine 0.6 MG/DL (0.55-1.30) Estimat Glomerular Filtration Rate > 60 mL/min (>60) Glucose Level 88 MG/DL (74-106) Calcium Level 7.5 MG/DL (8.5-10.1) L Phosphorus Level 1.2 MG/DL (2.5-4.9) L Magnesium Level 1.5 MG/DL (1.8-2.4) L Total Bilirubin 0.3 MG/DL (0.2-1.0) Aspartate Amino Transf (AST/SGOT) 54 U/L (15-37) H Alanine Aminotransferase (ALT/SGPT) 41 U/L (12-78) Alkaline Phosphatase 49 U/L (46-116) Lactate Dehydrogenase 266 U/L (81-234) H Troponin I 0.055 ng/mL (0.000-0.056) Total Protein 4.5 G/DL (6.4-8.2) L Albumin 1.8 G/DL (3.4-5.0) L Globulin 2.7 g/dL Albumin/Globulin Ratio 0.7 (1.0-2.7) L POC Whole Blood Glucose 94 MG/DL (74-106) Marina Buitrago MD Apr 10, 2020 10:08
[2020-04-10] MEDS: Vancomycin 1 GM in NS 275 ML IVPB SCH ×2 (11:34→23:04)
--- NOTE | 2020-04-10 12:00 | NUR ---
NURSE NOTES: CBC collected and sent down to the lab. Pt is currently sleeping. Electrolyte replacements transfusing. No distress noted.
--- NOTE | 2020-04-10 12:27 | Consultation ---
Consult Note Consult Note Asked to evaluate the patient at the request of Dr. Mendoza for fluid and electrolyte management Patient seen in ICU room E. Discussed with VARUN Linn. Data reviewed. Day second of hospitalization. Poor historian. 64-year-old female coming from a [facility] facility with altered mental status. The patient tested positive for COVID-19 2 days ago. Patient has a history of atrial fibrillation, CVA. According to the [facility] facility the patient is usually alert and oriented x3. However this morning she was nonverbal and had a rapid heart rate. When paramedics arrived patient had a heart rate of around 160 irregularly irregular and a blood pressure of 80/60. She was immediately started on IV normal saline and blood pressure improved but heart rate minute remained highly elevated. Patient unable to participate in review of systems secondary to altered mental status. Allergies: No Known Allergies (Unverified , 03/11/19) COVID-19 Screening Contact w/high risk pt: Yes Experienced COVID-19 symptoms?: No COVID-19 Testing performed [employer]: Yes COVID-19 Screening: Positive COVID-19 COVID-19 Testing Source: na Past Medical History: No History, Except For Hx Cardiac Problems: Yes - dysphagia, hypokalemia, hyperlipidemia, CVA, UTI, DVT, Hx Hypertension: Yes Hx Diabetes: Yes Hx Gastrointestinal Problems: Yes - colitis, History Of Psychiatric Problem: Yes - depression, Hx Transient Ischemic Attacks: Yes - 06/26/2017 Hx Vertigo: Yes PHYSICAL EXAMINATION: VITAL SIGNS: On admission from nursing facility, temperature 98.8, pulse of 160, respirations 18, and blood pressure 104/62. GENERAL: The patient awake, responsive, however altered and confused. The patient appears to be paler and chronically-ill appearing. HEAD AND NECK: Pupils are equal and reactive to light. Extraocular movements are intact. Neck was supple. No JVD. LUNGS: Bilateral air entry. Decreased air in the bases. HEART: S1, S2. Tachycardic, irregular. No murmur or gallop was appreciated. ABDOMEN: Soft, nondistended. Tenderness on the lower abdominal area. Mildly obese. EXTREMITIES: No cyanosis, clubbing, or edema. GENITOURINARY: The patient noted to have Lowe catheter with dark red urine collection in a Lowe catheter. NEUROLOGIC: Cranial nerves II through XII grossly intact. The patient moving all extremities equally. Sensory is intact. Gait was not able to assess due to the patient's status. RECTAL: Refused and deferred. PSYCHIATRIC: Mood and affect, unable to obtain due to the patient's status. LABORATORY AND DIAGNOSTIC DATA: Laboratory on admission from the emergency department, sodium 142, potassium 4.3, chloride 105, bicarb 27, BUN 32, creatinine 1.7, glucose is 135, calcium is 9.2, phosphorus is 3.7, magnesium 2.4. Ferritin is 927. AST of 71, ALT of 37, alkaline phosphatase of 79. Lactic dehydrogenase is 337. First troponin 0.092. C-reactive protein is 11.9. BNP of 740. Lipase is 79. PT of 12, INR 1.1, PTT of 25. D-dimer is 0.72. WBC of 12, hemoglobin of 10.5, hematocrit 33, platelet is 412. Urinalysis, +5 blood, +1 ketone, tainted rbc, tainted wbc, many bacteria, leukocyte esterase +1. COVID-19 test is positive. Chest x-ray, mild diffuse peribronchial thickening in the absence of the airspace consolidation, which is nonspecific, but can be seen in the inflammatory infectious airway disease in the appropriate clinical setting. CT scan of the abdomen and pelvis study limited due to lack of IV contrast. Pulmonary finding could be represented multifocal pneumonia or aspiration. This finding could also represent a viral pneumonia, . Correlation to the UTI due to the urinary bladder wall thickening, prominent rectal stool mild wall thickening could represent stercoral colitis in the appropriate context, diffuse large colonic stool burden would be a cause of the pain. Left superior renal pole ill-defined mild density could be, my suspicion for chronic medical renal disease in the proper setting. Consider outpatient CT adrenal gland to follow up evaluation of indeterminate left adrenal 1.2 cm nodularity. Calcified fibroid uterus and appendectomy . 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
[2020-04-10 12:30] LABS: HEMATOCRIT 25.6 % (37.0-47.0); HEMOGLOBIN 8.5 G/DL (12.0-16.0); MEAN CORPUSCULAR VOLUME 85 FL (80-99); PLATELET COUNT 196 K/UL (150-450); RED BLOOD COUNT 2.99 M/UL (4.20-5.40); WHITE BLOOD COUNT 9.7 K/UL (4.8-10.8)
[2020-04-10] MEDS ORDERED: Pantoprazole Inj IVP SCH (13:00)
--- NOTE | 2020-04-10 14:00 | NUR ---
NURSE NOTES: Pt turned and repositioned for comfort. No distress noted at this time.
--- NOTE | 2020-04-10 15:00 | NUR ---
NURSE NOTES: Spoke to Pt's sister. Updated her on pt's current condition.
--- NOTE | 2020-04-10 17:00 | NUR ---
NURSE NOTES: Pt fully cleaned and linens changed. Pt had a small formed brown BM, no evidence of blood in the stool.
--- NOTE | 2020-04-10 17:00 | Internal Med Progress Note ---
Subjective Date of Service: Apr 10, 2020 Physician Name Tariq Murphy Attending Physician Dewayne Mendoza MD Current Medications Medications (Trade) Dose Ordered Sig/Jere Route PRN Reason Start Time Stop Time Status Last Admin Dose Admin Acetaminophen (Tylenol) 650 mg Q4H PRN ORAL fever 04/08/20 19:00 05/08/20 18:59 Albuterol/ Ipratropium (Albuterol/ Ipratropium) 3 ml Q4H PRN HHN Shortness of Breath 04/08/20 19:00 04/13/20 18:59 Cefepime HCl 2 gm/ Dextrose 110 ml @ 220 mls/hr Q12H IV 04/09/20 21:00 04/16/20 20:59 04/10/20 09:32 Chlorhexidine Gluconate (Geno-Hex 2%) 1 applic DAILY@2000 TOPIC 04/08/20 20:00 07/07/20 19:59 04/09/20 20:18 Dextrose (Dextrose 50%) 25 ml Q30M PRN IV Hypoglycemia 04/09/20 07:45 07/08/20 07:44 Dextrose (Dextrose 50%) 50 ml Q30M PRN IV Hypoglycemia 04/09/20 07:45 07/08/20 07:44 Dextrose/ Electrolytes 1,000 ml @ 75 mls/hr [id number] IV 04/08/20 22:30 05/08/20 22:29 04/10/20 11:35 Insulin Aspart (NovoLOG) BEFORE MEALS AND HS SUBQ 04/09/20 11:30 07/08/20 11:29 04/10/20 12:08 Metoprolol Tartrate (Lopressor) 5 mg Q1H PRN IVP spb more than 120 04/08/20 19:00 07/07/20 18:59 Norepinephrine Bitartrate 8 mg/ Sodium Chloride 250 ml @ 0 mls/hr Q24H IV 04/08/20 19:09 05/08/20 19:08 04/09/20 03:57 Ondansetron HCl (Zofran) 4 mg Q6H PRN IVP Nausea & Vomiting 04/08/20 19:00 05/08/20 18:59 Pantoprazole (Protonix) 40 mg EVERY 12 HOURS IVP 04/10/20 21:00 05/10/20 20:59 Polyethylene Glycol (Miralax) 17 gm BEDTIME ORAL 04/09/20 21:00 05/09/20 20:59 Polyethylene Glycol (Miralax) 17 gm DAILYPRN PRN ORAL Constipation 04/08/20 19:00 05/08/20 18:59 Potassium Phosphate 30 mm/ Sodium Chloride 510 ml @ 63.75 mls/ hr ONCE ONCE IV 04/10/20 11:00 04/10/20 18:59 04/10/20 11:34 Temazepam (Restoril) 15 mg HSPRN PRN ORAL Insomnia 04/08/20 19:00 04/15/20 18:59 Vancomycin HCl (Vanco pharmacy to dose) 1 ea DAILY PRN MISC . 04/08/20 19:15 05/08/20 19:14 Vancomycin HCl 1 gm/Sodium Chloride 275 ml @ 183.333 mls/hr Q12H IVPB 04/10/20 11:30 04/15/20 11:29 04/10/20 11:34 Allergies: Coded Allergies: No Known Allergies (Unverified , 03/11/19) ROS Limited/Unobtainable: Yes Subjective 64 YO F with inoperable uterine cancer admitted with tachycardia. Now atrial fibrillation with rapid ventricular rate. Also COVID 19 positive. Cover for Int Med-DR Mendoza. ICU Objective Last Vital Signs Date Time Temp Pulse Resp B/P (MAP) Pulse Ox O2 Delivery O2 Flow Rate FiO2 04/10/20 16:00 83 04/10/20 16:00 14 126/34 (64) 99 04/10/20 12:00 100.2 04/10/20 12:00 Room Air 04/10/20 07:15 2.0 28 Laboratory Tests Test 04/09/20 20:10 04/10/20 04:00 04/10/20 05:00 04/10/20 05:48 White Blood Count 15.6 K/UL (4.8-10.8) H 10.5 K/UL (4.8-10.8) Red Blood Count 3.59 M/UL (4.20-5.40) L 2.97 M/UL (4.20-5.40) L Hemoglobin 10.5 G/DL (12.0-16.0) L 8.6 G/DL (12.0-16.0) L Hematocrit 32.0 % (37.0-47.0) L 25.4 % (37.0-47.0) L Mean Corpuscular Volume 89 FL (80-99) 85 FL (80-99) Mean Corpuscular Hemoglobin 29.2 PG (27.0-31.0) 29.0 PG (27.0-31.0) Mean Corpuscular Hemoglobin Concent 32.7 G/DL (32.0-36.0) 33.9 G/DL (32.0-36.0) Red Cell Distribution Width 13.6 % (11.6-14.8) 13.0 % (11.6-14.8) Platelet Count 248 K/UL (150-450) 194 K/UL (150-450) Mean Platelet Volume 6.7 FL (6.5-10.1) 5.9 FL (6.5-10.1) L Neutrophils (%) (Auto) % (45.0-75.0) % (45.0-75.0) Lymphocytes (%) (Auto) % (20.0-45.0) % (20.0-45.0) Monocytes (%) (Auto) % (1.0-10.0) % (1.0-10.0) Eosinophils (%) (Auto) % (0.0-3.0) % (0.0-3.0) Basophils (%) (Auto) % (0.0-2.0) % (0.0-2.0) Differential Total Cells Counted 100 100 Neutrophils % (Manual) 86 % (45-75) H 88 % (45-75) H Lymphocytes % (Manual) 9 % (20-45) L 7 % (20-45) L Monocytes % (Manual) 4 % (1-10) 5 % (1-10) Eosinophils % (Manual) 0 % (0-3) 0 % (0-3) Basophils % (Manual) 0 % (0-2) 0 % (0-2) Myelocytes % 1 % (0-0) H Band Neutrophils 0 % (0-8) 0 % (0-8) Platelet Estimate Adequate Adequate Platelet Morphology Normal Normal Red Blood Cell Morphology Normal Hypochromasia 1+ Erythrocyte Sedimentation Rate 30 MM/HR (0-30) Reticulocyte Count 1.4 % (0.5-2.0) Sodium Level 141 MMOL/L (136-145) Potassium Level 3.2 MMOL/L (3.5-5.1) L Chloride Level 110 MMOL/L (98-107) H Carbon Dioxide Level 24 MMOL/L (21-32) Anion Gap 7 mmol/L (5-15) Blood Urea Nitrogen 9 mg/dL (7-18) Creatinine 0.6 MG/DL (0.55-1.30) Estimat Glomerular Filtration Rate > 60 mL/min (>60) Glucose Level 88 MG/DL (74-106) Calcium Level 7.5 MG/DL (8.5-10.1) L Phosphorus Level 1.2 MG/DL (2.5-4.9) L Magnesium Level 1.5 MG/DL (1.8-2.4) L Total Bilirubin 0.3 MG/DL (0.2-1.0) Aspartate Amino Transf (AST/SGOT) 54 U/L (15-37) H Alanine Aminotransferase (ALT/SGPT) 41 U/L (12-78) Alkaline Phosphatase 49 U/L (46-116) Lactate Dehydrogenase 266 U/L (81-234) H Troponin I 0.055 ng/mL (0.000-0.056) Total Protein 4.5 G/DL (6.4-8.2) L Albumin 1.8 G/DL (3.4-5.0) L Globulin 2.7 g/dL Albumin/Globulin Ratio 0.7 (1.0-2.7) L POC Whole Blood Glucose 94 MG/DL (74-106) Test 04/10/20 10:00 04/10/20 11:41 04/10/20 12:00 Vancomycin Level Trough 10.9 ug/mL (5.0-12.0) POC Whole Blood Glucose 278 MG/DL (74-106) H White Blood Count 9.7 K/UL (4.8-10.8) Red Blood Count 2.99 M/UL (4.20-5.40) L Hemoglobin 8.5 G/DL (12.0-16.0) L Hematocrit 25.6 % (37.0-47.0) L Mean Corpuscular Volume 85 FL (80-99) Mean Corpuscular Hemoglobin 28.6 PG (27.0-31.0) Mean Corpuscular Hemoglobin Concent 33.4 G/DL (32.0-36.0) Red Cell Distribution Width 13.0 % (11.6-14.8) Platelet Count 196 K/UL (150-450) Mean Platelet Volume 5.7 FL (6.5-10.1) L Neutrophils (%) (Auto) % (45.0-75.0) Lymphocytes (%) (Auto) % (20.0-45.0) Monocytes (%) (Auto) % (1.0-10.0) Eosinophils (%) (Auto) % (0.0-3.0) Basophils (%) (Auto) % (0.0-2.0) Differential Total Cells Counted 100 Neutrophils % (Manual) 87 % (45-75) H Lymphocytes % (Manual) 9 % (20-45) L Monocytes % (Manual) 4 % (1-10) Eosinophils % (Manual) 0 % (0-3) Basophils % (Manual) 0 % (0-2) Band Neutrophils 0 % (0-8) Platelet Estimate Adequate Platelet Morphology Normal Hypochromasia 1+ Microbiology Date/Time Source Procedure Growth Status 04/09/20 08:00 Urine,Clean Catch Urine Culture - Preliminary NO GROWTH Resulted 04/08/20 15:55 Rectum VRE Culture - Final Enterococcus Faecium - Vre Complete 04/08/20 15:55 Rectum Received 04/08/20 15:55 Urine,Clean Catch Urine Culture - Preliminary Strep Species, Gamma-Hemolytic Gram Negative Arturo Resulted 04/08/20 15:55 Nasal Nares MRSA Culture - Final Staphylococcus Aureus - Mrsa Complete 04/08/20 15:30 Nasopharynx SARS-CoV-2 RdRp Gene Assay - Final Complete 04/08/20 15:30 Blood Blood Culture - Preliminary Gram Positive Cocci Resulted 04/08/20 15:15 Blood Blood Culture - Preliminary Gram Positive Cocci Resulted Intake and Output 04/09/20 04/10/20 19:00 07:00 Intake Total 2545.05 ml 1840.500 ml Output Total 1310 ml 1700 ml Balance 1235.05 ml 140.500 ml Intake IV Total 2445.05 ml 1840.500 ml Other 100 ml Output Urine Total 1310 ml 1700 ml # Bowel Movements 6 Objective PHYSICAL EXAMINATION: GENERAL: The patient awake, responsive, however altered and confused. The patient appears to be paler and chronically-ill appearing. HEAD AND NECK: Pupils are equal and reactive to light. Extraocular movements are intact. Neck was supple. No JVD. LUNGS: Bilateral air entry. Decreased air in the bases. HEART: S1, S2. Tachycardic, irregular. No murmur or gallop was appreciated. ABDOMEN: Soft, nondistended. Tenderness on the lower abdominal area. Mildly obese. EXTREMITIES: No cyanosis, clubbing, or edema. GENITOURINARY: The patient noted to have Lowe catheter with dark red urine collection in a Lowe catheter. NEUROLOGIC: Cranial nerves II through XII grossly intact. The patient moving all extremities equally. Sensory is intact. Gait was not able to assess due to the patient's status. RECTAL: Refused and deferred. PSYCHIATRIC: Mood and affect, unable to obtain due to the patient's status. Assessment/Plan Assessment/Plan ASSESSMENT: 1. COVID-19 pneumonia. 2. Altered mental status, most likely secondary to toxic metabolic encephalopathy. 3. Atrial fibrillation with rapid ventricular rate. 4. Anemia most likely secondary to acute blood loss. 5. Sepsis secondary to urinary tract infection as well as pneumonia. 6. Vaginal bleeding. 7. UTI. 8. History of diabetes type 2. 9. Inoperable endometrial adenocarcinoma, status post brachytherapy. 10. Hypertension. 11. History of lacunar infarction. PLAN: 1. Admit the patient to ICU. 2. Dr. Buitrago=Pulmonary/Critical Care 3. Dr. Wale Wu = Cardiology. 4. antibiotic=vancomycin and cefepime. 5. Admit to [facility] isolation [facility]- room. 6. Code status =Full Code. 7. DVT prophylaxis SCD. 8. S/P transfusion 2 units of packed RBC. 9. Continue Levophed as needed to support the blood pressure Tariq Murphy MD Apr 10, 2020 16:59
--- NOTE | 2020-04-10 17:15 | NUR ---
NURSE NOTES: BS 74, no Novolog coverage given, per sliding scale.
--- NOTE | 2020-04-10 18:00 | NUR ---
NURSE NOTES: Pt remains on 2L NC, O2sat 99%. No respiratory distress noted. No pain and/or discomfort noted.
--- NOTE | 2020-04-10 19:10 | NUR ---
NURSE HAND-OFF REPORT: Latest Vital Signs: Temperature 99.5 , Pulse 87 , B/P 123 /43 , Respiratory Rate 15 , O2 SAT 100 , Nasal Cannula , O2 Flow Rate 2.0 . Vital Sign Comment: EKG Rhythm: Sinus Rhythm Rhythm change?: N MD Notified?: - MD Response: Latest Ortega Fall Score: 45 Fall Risk: High Risk Safety Measures: Call light Within Reach, Bed Alarm Zone 2, Side Rails Side Rails x2, Bed position Low and Locked. Fall Precautions: Yellow Socks Yellow Gown Door Sign Patient Fall Education Report given to VARUN Montes De Oca.
--- NOTE | 2020-04-10 19:15 | NUR ---
NURSE NOTES: Received report from VARUN Linn. Pt is resting on the bed and awake and forgetful. AOx2. On O2 2L via nasal cannula and SaO2 96%. Still noted on & off coughing with sputum. On NPO. Pt has Lowe cath and patent and still noted hematuria with dark red color. Will irrigate Lowe cath as scheduled. Dressing is clean and dry on wound area. Iv site intact and no sign of infiltration noted. Pt has Rt. femoral TLC and dressing is clean and dry. on running with D51/2NS+KCL 20mEq @ 100cc/hr and off the Protonix drip. Keep cooling measure. Placed fall precaution. On proper isolation for COVID-19, MRSA and VRE. Pt will transfer to [facility] and awaiting the room. Will continue to monitor any change of condition.
[2020-04-10] MEDS: Dyna-Hex 2% Top Sol 2oz TOPIC SCH (19:43)
--- NOTE | 2020-04-10 20:12 | Cardiology Progress Note ---
Assessment/Plan Problem List: (1) COVID-19 (2) Altered mental status (3) Rectal bleeding (4) Anemia Status: stable, unchanged Status Narrative Pt w/ COVID 19 infection, adm w/ hypotension, gu bleed, severe anemia. BP improved w/ iv fluid resuscitation Hg improved after transfusion 3 u PRBCs Presenting EKG was read as AF w/ RVR , but appears to be sinus tachycardia w/ PACs Assessment/Plan Continue to monitor rhythm on telemetry. No antiarrhythmic agents needed at this time. Supplement K Follow h/h. Further eval/rx for endometrial CA per primary team Plan for transfer to [facility] noted. Subjective ROS Limited/Unobtainable: Yes Subjective Cardiology for Dr. Wu Events noted. Pt w/ cough/ congestion Objective Last 24 Hour Vital Signs Date Time Temp Pulse Resp B/P (MAP) Pulse Ox O2 Delivery O2 Flow Rate FiO2 04/10/20 19:00 87 15 123/43 (69) 100 04/10/20 18:00 89 16 128/44 (72) 98 04/10/20 18:00 2.0 04/10/20 17:37 121/39 04/10/20 17:00 99.5 91 17 134/49 (77) 100 04/10/20 16:00 83 04/10/20 16:00 Room Air 04/10/20 16:00 85 14 126/34 (64) 99 04/10/20 15:00 89 17 123/47 (72) 96 04/10/20 14:00 84 17 129/45 (73) 99 04/10/20 13:00 81 15 125/44 (71) 99 04/10/20 12:00 100.2 84 17 129/42 (71) 99 04/10/20 12:00 Room Air 04/10/20 12:00 80 04/10/20 11:00 93 17 149/49 (82) 98 04/10/20 10:00 94 16 111/50 (70) 97 04/10/20 09:00 88 17 140/49 (79) 100 04/10/20 08:00 93 04/10/20 08:00 Room Air 04/10/20 08:00 100.0 91 18 139/50 (79) 99 04/10/20 07:15 99 Nasal Cannula 2.0 28 04/10/20 07:00 88 18 131/51 (77) 99 04/10/20 06:00 80 16 129/46 (73) 100 04/10/20 05:00 87 16 96/41 (59) 100 04/10/20 04:00 Room Air 04/10/20 04:00 98.5 85 18 112/40 (64) 100 04/10/20 04:00 97 04/10/20 03:00 91 16 101/48 (65) 100 04/10/20 02:00 91 17 133/66 (88) 100 04/10/20 01:00 87 16 109/59 (76) 100 04/10/20 00:00 102 04/10/20 00:00 98.5 84 17 106/64 (78) 100 04/10/20 00:00 Room Air 04/09/20 23:00 87 16 122/58 (79) 100 04/09/20 22:00 87 15 100/46 (64) 99 04/09/20 21:00 89 20 115/54 (74) 100 General Appearance: WD/WN, no apparent distress, patient on isolation, isolation precautions - exam deferred - COVID isolation, other Intake and Output 04/09/20 04/10/20 19:00 07:00 Intake Total 2545.05 ml 1840.500 ml Output Total 1310 ml 1700 ml Balance 1235.05 ml 140.500 ml Intake IV Total 2445.05 ml 1840.500 ml Other 100 ml Output Urine Total 1310 ml 1700 ml # Bowel Movements 6 Laboratory Tests Test 04/09/20 20:10 04/10/20 04:00 04/10/20 05:00 04/10/20 05:48 White Blood Count 15.6 K/UL (4.8-10.8) H 10.5 K/UL (4.8-10.8) Red Blood Count 3.59 M/UL (4.20-5.40) L 2.97 M/UL (4.20-5.40) L Hemoglobin 10.5 G/DL (12.0-16.0) L 8.6 G/DL (12.0-16.0) L Hematocrit 32.0 % (37.0-47.0) L 25.4 % (37.0-47.0) L Mean Corpuscular Volume 89 FL (80-99) 85 FL (80-99) Mean Corpuscular Hemoglobin 29.2 PG (27.0-31.0) 29.0 PG (27.0-31.0) Mean Corpuscular Hemoglobin Concent 32.7 G/DL (32.0-36.0) 33.9 G/DL (32.0-36.0) Red Cell Distribution Width 13.6 % (11.6-14.8) 13.0 % (11.6-14.8) Platelet Count 248 K/UL (150-450) 194 K/UL (150-450) Mean Platelet Volume 6.7 FL (6.5-10.1) 5.9 FL (6.5-10.1) L Neutrophils (%) (Auto) % (45.0-75.0) % (45.0-75.0) Lymphocytes (%) (Auto) % (20.0-45.0) % (20.0-45.0) Monocytes (%) (Auto) % (1.0-10.0) % (1.0-10.0) Eosinophils (%) (Auto) % (0.0-3.0) % (0.0-3.0) Basophils (%) (Auto) % (0.0-2.0) % (0.0-2.0) Differential Total Cells Counted 100 100 Neutrophils % (Manual) 86 % (45-75) H 88 % (45-75) H Lymphocytes % (Manual) 9 % (20-45) L 7 % (20-45) L Monocytes % (Manual) 4 % (1-10) 5 % (1-10) Eosinophils % (Manual) 0 % (0-3) 0 % (0-3) Basophils % (Manual) 0 % (0-2) 0 % (0-2) Myelocytes % 1 % (0-0) H Band Neutrophils 0 % (0-8) 0 % (0-8) Platelet Estimate Adequate Adequate Platelet Morphology Normal Normal Red Blood Cell Morphology Normal Hypochromasia 1+ Erythrocyte Sedimentation Rate 30 MM/HR (0-30) Reticulocyte Count 1.4 % (0.5-2.0) Sodium Level 141 MMOL/L (136-145) Potassium Level 3.2 MMOL/L (3.5-5.1) L Chloride Level 110 MMOL/L (98-107) H Carbon Dioxide Level 24 MMOL/L (21-32) Anion Gap 7 mmol/L (5-15) Blood Urea Nitrogen 9 mg/dL (7-18) Creatinine 0.6 MG/DL (0.55-1.30) Estimat Glomerular Filtration Rate > 60 mL/min (>60) Glucose Level 88 MG/DL (74-106) Calcium Level 7.5 MG/DL (8.5-10.1) L Phosphorus Level 1.2 MG/DL (2.5-4.9) L Magnesium Level 1.5 MG/DL (1.8-2.4) L Total Bilirubin 0.3 MG/DL (0.2-1.0) Aspartate Amino Transf (AST/SGOT) 54 U/L (15-37) H Alanine Aminotransferase (ALT/SGPT) 41 U/L (12-78) Alkaline Phosphatase 49 U/L (46-116) Lactate Dehydrogenase 266 U/L (81-234) H Troponin I 0.055 ng/mL (0.000-0.056) Total Protein 4.5 G/DL (6.4-8.2) L Albumin 1.8 G/DL (3.4-5.0) L Globulin 2.7 g/dL Albumin/Globulin Ratio 0.7 (1.0-2.7) L POC Whole Blood Glucose 94 MG/DL (74-106) Test 04/10/20 10:00 04/10/20 11:41 04/10/20 12:00 Vancomycin Level Trough 10.9 ug/mL (5.0-12.0) POC Whole Blood Glucose 278 MG/DL (74-106) H White Blood Count 9.7 K/UL (4.8-10.8) Red Blood Count 2.99 M/UL (4.20-5.40) L Hemoglobin 8.5 G/DL (12.0-16.0) L Hematocrit 25.6 % (37.0-47.0) L Mean Corpuscular Volume 85 FL (80-99) Mean Corpuscular Hemoglobin 28.6 PG (27.0-31.0) Mean Corpuscular Hemoglobin Concent 33.4 G/DL (32.0-36.0) Red Cell Distribution Width 13.0 % (11.6-14.8) Platelet Count 196 K/UL (150-450) Mean Platelet Volume 5.7 FL (6.5-10.1) L Neutrophils (%) (Auto) % (45.0-75.0) Lymphocytes (%) (Auto) % (20.0-45.0) Monocytes (%) (Auto) % (1.0-10.0) Eosinophils (%) (Auto) % (0.0-3.0) Basophils (%) (Auto) % (0.0-2.0) Differential Total Cells Counted 100 Neutrophils % (Manual) 87 % (45-75) H Lymphocytes % (Manual) 9 % (20-45) L Monocytes % (Manual) 4 % (1-10) Eosinophils % (Manual) 0 % (0-3) Basophils % (Manual) 0 % (0-2) Band Neutrophils 0 % (0-8) Platelet Estimate Adequate Platelet Morphology Normal Hypochromasia 1+ Microbiology Date/Time Source Procedure Growth Status 04/09/20 08:00 Urine,Clean Catch Urine Culture - Preliminary NO GROWTH Resulted 04/08/20 15:55 Rectum VRE Culture - Final Enterococcus Faecium - Vre Complete 04/08/20 15:55 Rectum Received 04/08/20 15:55 Urine,Clean Catch Urine Culture - Preliminary Strep Species, Gamma-Hemolytic Gram Negative Arturo Resulted 04/08/20 15:55 Nasal Nares MRSA Culture - Final Staphylococcus Aureus - Mrsa Complete 04/08/20 15:30 Nasopharynx SARS-CoV-2 RdRp Gene Assay - Final Complete 04/08/20 15:30 Blood Blood Culture - Preliminary Gram Positive Cocci Resulted 04/08/20 15:15 Blood Blood Culture - Preliminary Gram Positive Cocci Resulted Cassie Montes MD Apr 10, 2020 20:12
[2020-04-10] MEDS: Pantoprazole Inj IVP SCH (20:40)
[2020-04-10 20:43] LABS: HEMATOCRIT 27.2 % (37.0-47.0); HEMOGLOBIN 8.9 G/DL (12.0-16.0); MEAN CORPUSCULAR VOLUME 88 FL (80-99); PLATELET COUNT 197 K/UL (150-450); RED BLOOD COUNT 3.08 M/UL (4.20-5.40); RED CELL DISTRIBUTION WIDTH 13.7 % (11.6-14.8); WHITE BLOOD COUNT 9.2 K/UL (4.8-10.8)
[2020-04-10 20:50] LABS: LYMPHOCYTES % (AUTO) 7.7 % (20.0-45.0); MONOCYTES % (AUTO) 4.4 % (1.0-10.0); NEUTROPHILS % (AUTO) 86.3 % (45.0-75.0)
[2020-04-10] MEDS: Miralax 17gm pkt ORAL SCH (21:00)
--- NOTE | 2020-04-10 22:00 | NUR ---
NURSE NOTES: Pt is resting on the bed. SaO2 95-97% with O2 2L via nasal cannula. On bus monitor with SR. BP is stable. Still noted hematuria and irrigated Lowe cath with NS 50cc and noted blood clot. Changed position. Will continue to monitor any change of condition.
[2020-04-11] VITALS (22 sets, daily range): BP systolic 64–136; BP diastolic 41–105
--- NOTE | 2020-04-11 | NUR ---
NURSE NOTES: Pt is resting on the bed. On 2L via nasal cannula and SaO2 95-97% noted. But Pt trying to remove nasal cannula several time. Remind Pt do not remove nasal cannula. Pt has Lowe cath and still noted hematuria. On Pt has Rt femoral TLC. Dressing os clean and dry flushed well with NS bur no blood return noted. No fever. Changed position. Placed fall precaution. Will continue to monitor any change of condition.
[2020-04-11] MEDS: D5 1/2NS w/KCl 20mEq 1,000 ML IV SCH ×2 (00:33→16:09)
--- NOTE | 2020-04-11 02:00 | NUR ---
NURSE NOTES: Turn and reposition. Provided good sleep environment. Applied P-200 mattress for wound management. Will continue to monitor any change of condition.
--- NOTE | 2020-04-11 04:00 | NUR ---
NURSE NOTES: Morning care was done. Cleaned Pt and applied lotion and cream. Collected blood sample. Irrigated Lowe cath with NS 50cc and still noted blood clot with hematuria. Changed position. No fever. On NPO. On running with D51/2NS with KCL 20mEq @ 75cc/hr. BP is stable. Will continue to monitor any change of condition.
[2020-04-11 05:15] LABS: BASOPHILS % (AUTO) 0.5 % (0.0-2.0); EOSINOPHILS % (AUTO) 0.3 % (0.0-3.0); HEMATOCRIT 27.6 % (37.0-47.0); HEMOGLOBIN 9.2 G/DL (12.0-16.0); LYMPHOCYTES % (AUTO) 9.7 % (20.0-45.0); MEAN CORPUSCULAR VOLUME 86 FL (80-99); MONOCYTES % (AUTO) 4.8 % (1.0-10.0); NEUTROPHILS % (AUTO) 84.9 % (45.0-75.0); PLATELET COUNT 193 K/UL (150-450); RED BLOOD COUNT 3.21 M/UL (4.20-5.40); RED CELL DISTRIBUTION WIDTH 13.1 % (11.6-14.8); WHITE BLOOD COUNT 7.2 K/UL (4.8-10.8)
--- NOTE | 2020-04-11 06:00 | NUR ---
NURSE NOTES: Pt is resting on the bed and Pt still trying to remove nasal cannula. Reminded Pt do not removed nasal cannula. SaO2 96-99% with O2 2L via nasal cannula. Lowe cath drainage well but still noted hematuria. Denied pain at this time. Pt will transfer to [facility] and awaiting the room.
[2020-04-11 06:07] LABS: ALANINE AMINOTRANSFERASE 38 U/L (12-78); ALBUMIN 1.8 G/DL (3.4-5.0); ALBUMIN/GLOBULIN RATIO 0.6 (1.0-2.7); ALKALINE PHOSPHATASE 63 U/L (46-116); ANION GAP 6 mmol/L (5-15); ASPARTATE AMINO TRANSFERASE 55 U/L (15-37); BILIRUBIN,TOTAL 0.3 MG/DL (0.2-1.0); BLOOD UREA NITROGEN 6 mg/dL (7-18); CALCIUM 7.5 MG/DL (8.5-10.1); CARBON DIOXIDE 27 MMOL/L (21-32); CHLORIDE 107 MMOL/L (98-107); CHOLESTEROL 96 MG/DL (< 200); CREATININE 0.5 MG/DL (0.55-1.30); FERRITIN 1614 NG/ML (8-388); HDL CHOLESTEROL 41 MG/DL (40-60); LACTATE DEHYDROGENASE 230 U/L (81-234); PHOSPHORUS 1.8 MG/DL (2.5-4.9); POTASSIUM 3.3 MMOL/L (3.5-5.1); SODIUM 140 MMOL/L (136-145); TRIGLYCERIDES 110 MG/DL (30-150)
[2020-04-11] MEDS: NovoLOG Insulin Flexpen SUBQ SCH ×4 (06:30→20:17)
--- NOTE | 2020-04-11 07:12 | NUR ---
NURSE NOTES: Received report from VARUN Montes De Oca. Pt is resting on the bed with her eyes closed, sleeping, easily arousable. Pt is forgetful and confused at times; however reorientable. HR [address] on case monitor. On O2 2L via nasal cannula, with O2sat 100%. Pt remains NPO at this time. Pt has a mcmanus catheter, patent and draining to urometer with hematuria noted. Dressing is clean and dry on wound area. PIV Lt AC #[id number] and Rt hand #18g. Pt has Rt femoral TLC and dressing is clean and dry; running D5 1/2NS+KCL 20mEq @ 75mL/hr. Bed locked and in lowest position, with call light within reach. 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 Will continue to monitor any change of condition.
--- NOTE | 2020-04-11 07:20 | NUR ---
NURSE HAND-OFF REPORT: Latest Vital Signs: Temperature 98.5 , Pulse 88 , B/P 132 /100 , Respiratory Rate 20 , O2 SAT 99 , Nasal Cannula, O2 Flow Rate 2.0 . Vital Sign Comment: EKG Rhythm: Sinus Rhythm Rhythm change?: N Latest Ortega Fall Score: 45 Fall Risk: High Risk Safety Measures: Call light Within Reach, Bed Alarm Zone 2, Side Rails Side Rails x2, Bed position Low and Locked. Fall Precautions: Yellow Socks Yellow Gown Door Sign Patient Fall Education Report given to VARUN Linn. Pt is resting on the bed and still noted hematuria. Pt will transfer to [facility] and awaiting room.
[2020-04-11 07:44] LABS: % IRON SATURATION 17 % (15-50); IRON 21 ug/dL (50-175); TOTAL IRON BINDING CAPACITY 125 ug/dL (250-450)
[2020-04-11] MEDS: Potassium Phosphate 15mm/250ml 250 ML IVPB SCH ×2 (08:43→11:18)
[2020-04-11] MEDS: Pantoprazole Inj IVP SCH ×2 (08:43→20:14)
--- NOTE | 2020-04-11 09:00 | NUR ---
NURSE NOTES: Pt turned and repositioned. Electrolyte replacement started. No distress and/or discomfort noted. Will prepare pt for transfer to SDU.
[2020-04-11] MEDS: Cefepime HCl 2 GM in D5W 110 ML IV SCH ×2 (09:20→20:14)
[2020-04-11] MEDS ORDERED: NS 275ml ONE ×2 (09:53→09:55)
[2020-04-11] MEDS ORDERED: NS Irrig 1000ml ONE (09:53)
[2020-04-11] MEDS ORDERED: Tubing Blood Filter IV ONE (09:53)
[2020-04-11] MEDS ORDERED: D5W 275ml ONE (09:53)
[2020-04-11] MEDS ORDERED: Tubing IV Secondary IV ONE (09:55)
--- NOTE | 2020-04-11 10:18 | NUR ---
Social Work This SW followed up with patient who will be transferred to another unit today from ICU. Patient is confused, from [facility].and plans to return there, as able (Positive for COVID). This SW spoke with sister, Barbara Katz ([phone]) who explains patient does not have an AD, was recently admitted to SNF in September 2019 for short term, but now needing buttermaker care. Patient completed a POLST, along with informed sister that she is wanting full code, full treatment. Pending progress at this time. Sister is the designated decision maker, as patient does not have any other family to assist.
--- NOTE | 2020-04-11 10:20 | NUR ---
TRANSFER TO FLOOR: Patient transferred to SDU 245-2, per Dr Buitrago. Report given to VARUN Hollins. Medications given to VARUN Hollins. Pt has no belongings. Pt's sister informed of transfer.
--- NOTE | 2020-04-11 10:20 | NUR ---
NURSE NOTES: received patient report from vita vaughan. patient came in via hospital bed. on 2Li NC. not in acute distress. on cardiac monitoring. SR. no belongings found. will follow plan of care.
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
[2020-04-11] MEDS: Vancomycin 1 GM in NS 275 ML IVPB SCH (11:19)
--- NOTE | 2020-04-11 12:00 | NUR ---
NURSE NOTES: dr tran made aware that patient is still NPO sec to rectal bleeding, no new orders received.
--- NOTE | 2020-04-11 12:50 | Nephrology Progress Note ---
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 History of hypertension Plan Magnesium IV supplement as needed Potassium IV supplement as needed Phosphorus IV supplement as needed Monitor electrolytes Monitor hemoglobin hematocrit IV Protonix Adjust IV fluid Antibiotics per consultants Subjective ROS Limited/Unobtainable: No Constitutional: Reports: malaise, weakness Objective Objective Last 24 Hour Vital Signs Date Time Temp Pulse Resp B/P (MAP) Pulse Ox O2 Delivery O2 Flow Rate FiO2 04/11/20 12:00 Nasal Cannula 2.0 04/11/20 11:25 99.5 88 21 103/56 (72) 100 04/11/20 10:41 Nasal Cannula 2.0 04/11/20 09:00 75 18 127/48 (74) 97 04/11/20 08:00 100.2 85 19 124/48 (73) 98 04/11/20 08:00 85 04/11/20 08:00 Nasal Cannula 2.0 04/11/20 07:00 88 20 132/100 (111) 99 04/11/20 07:00 88 20 132/100 (111) 99 04/11/20 07:00 88 20 132/100 (111) 99 04/11/20 07:00 88 20 135/44 (74) 99 04/11/20 07:00 88 20 132/100 (111) 99 04/11/20 06:30 86 20 125/48 (73) 94 04/11/20 06:00 89 18 128/45 (72) 96 04/11/20 06:00 89 18 128/45 (72) 96 04/11/20 05:30 79 18 134/105 (115) 98 04/11/20 05:00 81 19 118/41 (66) 96 04/11/20 05:00 81 19 118/41 (66) 96 04/11/20 04:30 89 17 136/44 (74) 97 04/11/20 04:00 Nasal Cannula 2.0 04/11/20 04:00 90 04/11/20 04:00 93 04/11/20 04:00 86 17 94/47 (63) 99 04/11/20 04:00 98.5 86 17 94/47 (63) 99 04/11/20 03:36 89 18 132/46 (74) 100 04/11/20 03:30 88 18 64/51 (55) 100 04/11/20 03:00 96 17 124/55 (78) 99 04/11/20 03:00 96 17 124/55 (78) 99 04/11/20 02:30 88 20 120/47 (71) 95 04/11/20 02:10 86 17 114/54 (74) 95 04/11/20 02:00 86 17 114/54 (74) 95 04/11/20 02:00 86 18 87/74 (78) 94 04/11/20 01:30 92 18 103/79 (87) 96 04/11/20 01:00 91 18 116/75 (89) 91 04/11/20 01:00 91 18 116/75 (89) 96 04/11/20 00:30 87 18 130/49 (76) 96 04/11/20 00:00 Nasal Cannula 2.0 04/11/20 00:00 89 18 118/54 (75) 98 04/11/20 00:00 98.5 89 18 118/54 (75) 98 04/10/20 23:00 91 16 94/78 (83) 99 04/10/20 22:00 94 17 115/73 (87) 97 04/10/20 21:00 93 17 117/59 (78) 95 04/10/20 20:00 Nasal Cannula 2.0 04/10/20 20:00 98.8 91 15 127/47 (73) 96 04/10/20 20:00 98 Nasal Cannula 2.0 28 04/10/20 20:00 101 04/10/20 19:00 87 15 123/43 (69) 100 04/10/20 18:00 89 16 128/44 (72) 98 04/10/20 18:00 2.0 04/10/20 17:37 121/39 04/10/20 17:00 99.5 91 17 134/49 (77) 100 04/10/20 16:00 83 04/10/20 16:00 Room Air 04/10/20 16:00 85 14 126/34 (64) 99 04/10/20 15:00 89 17 123/47 (72) 96 04/10/20 14:00 84 17 129/45 (73) 99 04/10/20 13:00 81 15 125/44 (71) 99 Intake and Output 04/10/20 04/11/20 19:00 07:00 Intake Total 1676.667 ml 1068.000 ml Output Total 1830 ml 2300 ml Balance -153.333 ml -1232.000 ml Intake IV Total 1676.667 ml 1068.000 ml Output Urine Total 1830 ml 2300 ml # Bowel Movements 2 Laboratory Tests 04/10/20 20:30: White Blood Count 9.2, Red Blood Count 3.08L, Hemoglobin 8.9L, Hematocrit 27.2L, Mean Corpuscular Volume 88, Mean Corpuscular Hemoglobin 28.9, Mean Corpuscular Hemoglobin Concent 32.8, Red Cell Distribution Width 13.7, Platelet Count 197, Mean Platelet Volume 6.1L, Neutrophils (%) (Auto) 86.3H, Lymphocytes (%) (Auto) 7.7L, Monocytes (%) (Auto) 4.4, Eosinophils (%) (Auto) 0.0, Basophils (%) (Auto) 0.0 04/10/20 20:49: POC Whole Blood Glucose 91 04/11/20 04:15: White Blood Count 7.2, Red Blood Count 3.21L, Hemoglobin 9.2L, Hematocrit 27.6L, Mean Corpuscular Volume 86, Mean Corpuscular Hemoglobin 28.7, Mean Corpuscular Hemoglobin Concent 33.4, Red Cell Distribution Width 13.1, Platelet Count 193, Mean Platelet Volume 6.0L, Neutrophils (%) (Auto) 84.9H, Lymphocytes (%) (Auto) 9.7L, Monocytes (%) (Auto) 4.8, Eosinophils (%) (Auto) 0.3, Basophils (%) (Auto) 0.5, Erythrocyte Sedimentation Rate 40H, Reticulocyte Count 1.0, Sodium Level 140, Potassium Level 3.3L, Chloride Level 107, Carbon Dioxide Level 27, Anion Gap 6, Blood Urea Nitrogen 6L, Creatinine 0.5L, Estimat Glomerular Filtration Rate > 60, Glucose Level 83, Calcium Level 7.5L, Phosphorus Level 1.8L, Magnesium Level 2.0, Iron Level 21L, Total Iron Binding Capacity 125L, Percent Iron Saturation 17, Unsaturated Iron Binding 104L, Ferritin 1614H, Total Bilirubin 0.3, Aspartate Amino Transf (AST/SGOT) 55H, Alanine Aminotransferase (ALT/SGPT) 38, Alkaline Phosphatase 63, Lactate Dehydrogenase 230, Total Protein 4.7L, Albumin 1.8L, Globulin 2.9, Albumin/Globulin Ratio 0.6L, Triglycerides Level 110, Cholesterol Level 96, LDL Cholesterol 36, HDL Cholesterol 41, Cholesterol/HDL Ratio 2.3L, Vitamin B12 Level 645, Folate 2.6L, Thyroid Stimulating Hormone (TSH) 1.473 04/11/20 11:15: Vancomycin Level Trough 11.0 04/11/20 11:31: POC Whole Blood Glucose 84 Height (Feet): 5 Height (Inches): 6.00 Weight (Pounds): 160 General Appearance: no apparent distress, lethargic Cardiovascular: tachycardia Respiratory/Chest: decreased breath sounds Abdomen: distended Genitourinary/Rectal: other - Lowe catheter urine bloody Stevne Edwards MD Apr 11, 2020 12:50
--- NOTE | 2020-04-11 13:37 | Internal Med Progress Note ---
Subjective Date of Service: Apr 11, 2020 Physician Name Tariq Murphy Attending Physician Dewayne Mendoza MD Current Medications Medications (Trade) Dose Ordered Sig/Jere Route PRN Reason Start Time Stop Time Status Last Admin Dose Admin Acetaminophen (Tylenol) 650 mg Q4H PRN ORAL fever 04/08/20 19:00 05/08/20 18:59 Albuterol/ Ipratropium (Albuterol/ Ipratropium) 3 ml Q4H PRN HHN Shortness of Breath 04/08/20 19:00 04/13/20 18:59 Cefepime HCl 2 gm/ Dextrose 110 ml @ 220 mls/hr Q12H IV 04/09/20 21:00 04/16/20 20:59 04/11/20 09:20 Chlorhexidine Gluconate (Geno-Hex 2%) 1 applic DAILY@2000 TOPIC 04/08/20 20:00 07/07/20 19:59 04/10/20 19:43 Dextrose (Dextrose 50%) 25 ml Q30M PRN IV Hypoglycemia 04/09/20 07:45 07/08/20 07:44 Dextrose (Dextrose 50%) 50 ml Q30M PRN IV Hypoglycemia 04/09/20 07:45 07/08/20 07:44 Dextrose/ Electrolytes 1,000 ml @ 75 mls/hr [id number] IV 04/08/20 22:30 05/08/20 22:29 04/11/20 00:33 Insulin Aspart (NovoLOG) BEFORE MEALS AND HS SUBQ 04/09/20 11:30 07/08/20 11:29 04/10/20 12:08 Metoprolol Tartrate (Lopressor) 5 mg Q1H PRN IVP spb more than 120 04/08/20 19:00 07/07/20 18:59 Ondansetron HCl (Zofran) 4 mg Q6H PRN IVP Nausea & Vomiting 04/08/20 19:00 05/08/20 18:59 Pantoprazole (Protonix) 40 mg EVERY 12 HOURS IVP 04/10/20 21:00 05/10/20 20:59 04/11/20 08:43 Polyethylene Glycol (Miralax) 17 gm BEDTIME ORAL 04/09/20 21:00 05/09/20 20:59 Polyethylene Glycol (Miralax) 17 gm DAILYPRN PRN ORAL Constipation 04/08/20 19:00 05/08/20 18:59 Potassium Phosphate 250 ml @ 62.5 mls/hr Q4H IVPB 04/11/20 08:00 04/11/20 15:59 04/11/20 11:18 Temazepam (Restoril) 15 mg HSPRN PRN ORAL Insomnia 04/08/20 19:00 04/15/20 18:59 Vancomycin HCl (Vanco pharmacy to dose) 1 ea DAILY PRN MISC . 04/08/20 19:15 05/08/20 19:14 Vancomycin/Sodium Chloride 275 ml @ 183.333 mls/hr Q12HR@0900,2100 IVPB 04/11/20 21:00 04/16/20 20:59 Allergies: Coded Allergies: No Known Allergies (Unverified , 03/11/19) ROS Limited/Unobtainable: Yes Subjective 64 YO F with inoperable uterine cancer admitted with tachycardia. Now atrial fibrillation with rapid ventricular rate. Also COVID 19 positive. Cover for Int Med-DR Mendoza. Step down unit Objective Last Vital Signs Date Time Temp Pulse Resp B/P (MAP) Pulse Ox O2 Delivery O2 Flow Rate FiO2 04/11/20 12:00 Nasal Cannula 2.0 04/11/20 11:25 99.5 88 21 103/56 (72) 100 04/10/20 20:00 28 Laboratory Tests Test 04/10/20 20:30 04/10/20 20:49 04/11/20 04:15 04/11/20 11:15 White Blood Count 9.2 K/UL (4.8-10.8) 7.2 K/UL (4.8-10.8) Red Blood Count 3.08 M/UL (4.20-5.40) L 3.21 M/UL (4.20-5.40) L Hemoglobin 8.9 G/DL (12.0-16.0) L 9.2 G/DL (12.0-16.0) L Hematocrit 27.2 % (37.0-47.0) L 27.6 % (37.0-47.0) L Mean Corpuscular Volume 88 FL (80-99) 86 FL (80-99) Mean Corpuscular Hemoglobin 28.9 PG (27.0-31.0) 28.7 PG (27.0-31.0) Mean Corpuscular Hemoglobin Concent 32.8 G/DL (32.0-36.0) 33.4 G/DL (32.0-36.0) Red Cell Distribution Width 13.7 % (11.6-14.8) 13.1 % (11.6-14.8) Platelet Count 197 K/UL (150-450) 193 K/UL (150-450) Mean Platelet Volume 6.1 FL (6.5-10.1) L 6.0 FL (6.5-10.1) L Neutrophils (%) (Auto) 86.3 % (45.0-75.0) H 84.9 % (45.0-75.0) H Lymphocytes (%) (Auto) 7.7 % (20.0-45.0) L 9.7 % (20.0-45.0) L Monocytes (%) (Auto) 4.4 % (1.0-10.0) 4.8 % (1.0-10.0) Eosinophils (%) (Auto) 0.0 % (0.0-3.0) 0.3 % (0.0-3.0) Basophils (%) (Auto) 0.0 % (0.0-2.0) 0.5 % (0.0-2.0) POC Whole Blood Glucose 91 MG/DL (74-106) Erythrocyte Sedimentation Rate 40 MM/HR (0-30) H Reticulocyte Count 1.0 % (0.5-2.0) Sodium Level 140 MMOL/L (136-145) Potassium Level 3.3 MMOL/L (3.5-5.1) L Chloride Level 107 MMOL/L (98-107) Carbon Dioxide Level 27 MMOL/L (21-32) Anion Gap 6 mmol/L (5-15) Blood Urea Nitrogen 6 mg/dL (7-18) L Creatinine 0.5 MG/DL (0.55-1.30) L Estimat Glomerular Filtration Rate > 60 mL/min (>60) Glucose Level 83 MG/DL (74-106) Calcium Level 7.5 MG/DL (8.5-10.1) L Phosphorus Level 1.8 MG/DL (2.5-4.9) L Magnesium Level 2.0 MG/DL (1.8-2.4) Iron Level 21 ug/dL (50-175) L Total Iron Binding Capacity 125 ug/dL (250-450) L Percent Iron Saturation 17 % (15-50) Unsaturated Iron Binding 104 ug/dL (112-346) L Ferritin 1614 NG/ML (8-388) H Total Bilirubin 0.3 MG/DL (0.2-1.0) Aspartate Amino Transf (AST/SGOT) 55 U/L (15-37) H Alanine Aminotransferase (ALT/SGPT) 38 U/L (12-78) Alkaline Phosphatase 63 U/L (46-116) Lactate Dehydrogenase 230 U/L (81-234) Total Protein 4.7 G/DL (6.4-8.2) L Albumin 1.8 G/DL (3.4-5.0) L Globulin 2.9 g/dL Albumin/Globulin Ratio 0.6 (1.0-2.7) L Triglycerides Level 110 MG/DL (30-150) Cholesterol Level 96 MG/DL (< 200) LDL Cholesterol 36 mg/dL (<100) HDL Cholesterol 41 MG/DL (40-60) Cholesterol/HDL Ratio 2.3 (3.3-4.4) L Vitamin B12 Level 645 PG/ML (193-986) Folate 2.6 NG/ML (8.6-58.9) L Thyroid Stimulating Hormone (TSH) 1.473 uiU/mL (0.358-3.740) Vancomycin Level Trough 11.0 ug/mL (5.0-12.0) Test 04/11/20 11:31 POC Whole Blood Glucose 84 MG/DL (74-106) Microbiology Date/Time Source Procedure Growth Status 04/09/20 08:00 Urine,Clean Catch Urine Culture - Preliminary Strep Species, Gamma-Hemolytic Resulted 04/08/20 15:55 Rectum VRE Culture - Final Enterococcus Faecium - Vre Complete 04/08/20 15:55 Rectum - Final NO CARBAPENEM-RESISTANT ENTEROBACTERI... Complete 04/08/20 15:55 Urine,Clean Catch Urine Culture - Preliminary Proteus Mirabilis Resulted 04/08/20 15:55 Nasal Nares MRSA Culture - Final Staphylococcus Aureus - Mrsa Complete 04/08/20 15:30 Nasopharynx SARS-CoV-2 RdRp Gene Assay - Final Complete 04/08/20 15:30 Blood Blood Culture - Preliminary Staphylococcus Sp Coag Neg Resulted 04/08/20 15:15 Blood Blood Culture - Preliminary Staphylococcus Sp Coag Neg Resulted Intake and Output 04/10/20 04/11/20 19:00 07:00 Intake Total 1676.667 ml 1068.000 ml Output Total 1830 ml 2300 ml Balance -153.333 ml -1232.000 ml Intake IV Total 1676.667 ml 1068.000 ml Output Urine Total 1830 ml 2300 ml # Bowel Movements 2 Objective PHYSICAL EXAMINATION: GENERAL: The patient awake, responsive, however altered and confused. The patient appears to be paler and chronically-ill appearing. HEAD AND NECK: Pupils are equal and reactive to light. Extraocular movements are intact. Neck was supple. No JVD. LUNGS: Bilateral air entry. Decreased air in the bases. HEART: S1, S2. Tachycardic, irregular. No murmur or gallop was appreciated. ABDOMEN: Soft, nondistended. Tenderness on the lower abdominal area. Mildly obese. EXTREMITIES: No cyanosis, clubbing, or edema. GENITOURINARY: The patient noted to have Lowe catheter with dark red urine collection in a Lowe catheter. NEUROLOGIC: Cranial nerves II through XII grossly intact. The patient moving all extremities equally. Sensory is intact. Gait was not able to assess due to the patient's status. RECTAL: Refused and deferred. PSYCHIATRIC: Mood and affect, unable to obtain due to the patient's status. Assessment/Plan Assessment/Plan ASSESSMENT: 1. COVID-19 pneumonia. 2. Altered mental status, most likely secondary to toxic metabolic encephalopathy. 3. Atrial fibrillation with rapid ventricular rate. 4. Anemia most likely secondary to acute blood loss. 5. Sepsis secondary to urinary tract infection as well as pneumonia. 6. Vaginal bleeding. 7. UTI. 8. History of diabetes type 2. 9. Inoperable endometrial adenocarcinoma, status post brachytherapy. 10. Hypertension. 11. History of lacunar infarction. PLAN: 1. Admit the patient to ICU. 2. Dr. Buitrago=Pulmonary/Critical Care 3. Dr. Wale Wu = Cardiology. 4. antibiotic=vancomycin and cefepime. 5. Admit to [facility] isolation [facility] room. 6. Code status =Full Code. 7. DVT prophylaxis SCD. 8. S/P transfusion 2 units of packed RBC. 9. Continue Levophed as needed to support the blood pressure Tariq Murphy MD Apr 11, 2020 13:37
--- NOTE | 2020-04-11 16:47 | NUR ---
CASE MANAGEMENT: INITIAL REVIEW 64YR OLD FEMALE BIBA FROM [facility] [place] CC:ALTERED MENTAL STATUS SI:SEPTIC SHOCK / SEPSIS . COVID-19 + PNA . ATRIAL FIBRILLATION WITH RVR 98.8 160 18 104/62 95% ON RA--2L NC WBC 12.3 H/H 7.1/22.9 BUN/CREAT 32/1.7 TROP 0.092 LDH 337 ALB 2.4 BNP 740 IS:IV DECADRON X1 IVF NS BOLUS X2 IV CARDIZEM X1 IV D5/KCL X1 IV DIGOXIN X1 IV LIDOCAINE X1 IV VANCO X1 IV CEFEPIME X1 CHEST X-RAY-Mild diffuse peribronchial thickening in the absence of airspace consolidation, which is nonspecific but can be seen with infectious/inflammatory airways disease in the appropriate clinical context. CT ABD/PELVIC- Study limited due to lack of IV contrast. Pulmonary findings could represent multifocal pneumonia or aspiration. These findings could also represent viral pneumonia, although this is not highly specific pattern.Correlate for UTI due to urinary bladder wall thickening. Prominent rectal stool burden with mild wall thickening could represent stercoral colitis in the proper context. Otherwise, diffuse large colonic stool burden could be a cause for pain. Left superior renal pole ill-defined mild hyperdensity could be a manifestation of chronic medical renal disease in the proper context. Consider outpatient CT adrenal glands to further evaluate indeterminate left adrenal 1.2 cm nodularity. Calcified fibroid uterus. Appendectomy. \:ICU STATUS DCP: HOME WHEN STABLE PLAN: BLOOD TRANSFUSION CASE MANAGEMENT: REVIEW 04/11/20 SI:SEPTIC SHOCK / SEPSIS . COVID-19 + PNA . ATRIAL FIBRILLATION WITH RVR 100.2 85 19 124/48 98% ON 2L NC H/H 9.2/27.6 K+3.3 CA+7.5 PHOS 1.8 FERR 1614 ALB 1.8 IS:IV D 50 PROTOCOL IV D5/ELECTROLYTES @75ML/HR IV CEFEPIME BID IV PROTONIC BID \:DOWNGRADE FROM ICU TO [facility] 04/10 DCP: HOME WHEN STABLE PLAN: CONT IV HYDRATION CONT MONITOR ARRHYTHMIA
--- NOTE | 2020-04-11 18:49 | Cardiology Progress Note ---
Assessment/Plan Assessment/Plan hs of hypertension, diabetes, and previous CVA, who is COVID infectionm Sinus tachy incorrect diagnosis of afib with tachycardia, hypotension, a/ hemorraghic shock vaginal bleeding. anemai s/p prbc tx pt in covid isolation exam defferred remain npo for possible gi bleed is on ivf has hematuria and Mcmanus is being flushed i reviewed her ekg form clinical application specialist and inthe hospital eventhough some of ekg interpretation by computer indicated afib or flutter this is erroneous interpretation the is actual atrial activity on all the ekg and tele strips no afib just sinus tachy some low grade fever abx ivf supportive care keep on tele monitoring Subjective ROS Limited/Unobtainable: Yes Subjective covid pt per rn Pt is resting on the bed with her eyes closed, sleeping, easily arousable. Pt is forgetful and confused at times; however reorientable. 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 On O2 2L via nasal cannula, with O2sat 100%. Pt remains NPO at this time. Pt has a mcmanus catheter, patent and draining to urometer with hematuria noted. Dressing is clean and dry on wound area Objective Last 24 Hour Vital Signs Date Time Temp Pulse Resp B/P (MAP) Pulse Ox O2 Delivery O2 Flow Rate FiO2 04/11/20 18:03 2.0 04/11/20 16:00 Nasal Cannula 2.0 04/11/20 16:00 79 04/11/20 16:00 98.6 83 22 111/47 (68) 98 04/11/20 12:00 Nasal Cannula 2.0 04/11/20 11:25 99.5 88 21 103/56 (72) 100 04/11/20 10:41 Nasal Cannula 2.0 04/11/20 10:18 71 04/11/20 09:00 75 18 127/48 (74) 97 04/11/20 08:00 100.2 85 19 124/48 (73) 98 04/11/20 08:00 85 04/11/20 08:00 Nasal Cannula 2.0 04/11/20 07:00 88 20 132/100 (111) 99 04/11/20 07:00 88 20 132/100 (111) 99 04/11/20 07:00 88 20 132/100 (111) 99 04/11/20 07:00 88 20 135/44 (74) 99 04/11/20 07:00 88 20 132/100 (111) 99 04/11/20 06:30 86 20 125/48 (73) 94 04/11/20 06:00 89 18 128/45 (72) 96 04/11/20 06:00 89 18 128/45 (72) 96 04/11/20 05:30 79 18 134/105 (115) 98 04/11/20 05:00 81 19 118/41 (66) 96 04/11/20 05:00 81 19 118/41 (66) 96 04/11/20 04:30 89 17 136/44 (74) 97 04/11/20 04:00 Nasal Cannula 2.0 04/11/20 04:00 90 04/11/20 04:00 93 04/11/20 04:00 86 17 94/47 (63) 99 04/11/20 04:00 98.5 86 17 94/47 (63) 99 04/11/20 03:36 89 18 132/46 (74) 100 04/11/20 03:30 88 18 64/51 (55) 100 04/11/20 03:00 96 17 124/55 (78) 99 04/11/20 03:00 96 17 124/55 (78) 99 04/11/20 02:30 88 20 120/47 (71) 95 04/11/20 02:10 86 17 114/54 (74) 95 04/11/20 02:00 86 17 114/54 (74) 95 04/11/20 02:00 86 18 87/74 (78) 94 04/11/20 01:30 92 18 103/79 (87) 96 04/11/20 01:00 91 18 116/75 (89) 91 04/11/20 01:00 91 18 116/75 (89) 96 04/11/20 00:30 87 18 130/49 (76) 96 04/11/20 00:00 Nasal Cannula 2.0 04/11/20 00:00 89 18 118/54 (75) 98 04/11/20 00:00 98.5 89 18 118/54 (75) 98 04/10/20 23:00 91 16 94/78 (83) 99 04/10/20 22:00 94 17 115/73 (87) 97 04/10/20 21:00 93 17 117/59 (78) 95 04/10/20 20:00 Nasal Cannula 2.0 04/10/20 20:00 98.8 91 15 127/47 (73) 96 04/10/20 20:00 98 Nasal Cannula 2.0 28 04/10/20 20:00 101 04/10/20 19:00 87 15 123/43 (69) 100 Intake and Output 04/10/20 04/11/20 19:00 07:00 Intake Total 1676.667 ml 1068.000 ml Output Total 1830 ml 2300 ml Balance -153.333 ml -1232.000 ml Intake IV Total 1676.667 ml 1068.000 ml Output Urine Total 1830 ml 2300 ml # Bowel Movements 2 Laboratory Tests Test 04/10/20 20:30 04/10/20 20:49 04/11/20 04:15 04/11/20 05:19 White Blood Count 9.2 K/UL (4.8-10.8) 7.2 K/UL (4.8-10.8) Red Blood Count 3.08 M/UL (4.20-5.40) L 3.21 M/UL (4.20-5.40) L Hemoglobin 8.9 G/DL (12.0-16.0) L 9.2 G/DL (12.0-16.0) L Hematocrit 27.2 % (37.0-47.0) L 27.6 % (37.0-47.0) L Mean Corpuscular Volume 88 FL (80-99) 86 FL (80-99) Mean Corpuscular Hemoglobin 28.9 PG (27.0-31.0) 28.7 PG (27.0-31.0) Mean Corpuscular Hemoglobin Concent 32.8 G/DL (32.0-36.0) 33.4 G/DL (32.0-36.0) Red Cell Distribution Width 13.7 % (11.6-14.8) 13.1 % (11.6-14.8) Platelet Count 197 K/UL (150-450) 193 K/UL (150-450) Mean Platelet Volume 6.1 FL (6.5-10.1) L 6.0 FL (6.5-10.1) L Neutrophils (%) (Auto) 86.3 % (45.0-75.0) H 84.9 % (45.0-75.0) H Lymphocytes (%) (Auto) 7.7 % (20.0-45.0) L 9.7 % (20.0-45.0) L Monocytes (%) (Auto) 4.4 % (1.0-10.0) 4.8 % (1.0-10.0) Eosinophils (%) (Auto) 0.0 % (0.0-3.0) 0.3 % (0.0-3.0) Basophils (%) (Auto) 0.0 % (0.0-2.0) 0.5 % (0.0-2.0) POC Whole Blood Glucose 91 MG/DL (74-106) Pending Erythrocyte Sedimentation Rate 40 MM/HR (0-30) H Reticulocyte Count 1.0 % (0.5-2.0) Sodium Level 140 MMOL/L (136-145) Potassium Level 3.3 MMOL/L (3.5-5.1) L Chloride Level 107 MMOL/L (98-107) Carbon Dioxide Level 27 MMOL/L (21-32) Anion Gap 6 mmol/L (5-15) Blood Urea Nitrogen 6 mg/dL (7-18) L Creatinine 0.5 MG/DL (0.55-1.30) L Estimat Glomerular Filtration Rate > 60 mL/min (>60) Glucose Level 83 MG/DL (74-106) Calcium Level 7.5 MG/DL (8.5-10.1) L Phosphorus Level 1.8 MG/DL (2.5-4.9) L Magnesium Level 2.0 MG/DL (1.8-2.4) Iron Level 21 ug/dL (50-175) L Total Iron Binding Capacity 125 ug/dL (250-450) L Percent Iron Saturation 17 % (15-50) Unsaturated Iron Binding 104 ug/dL (112-346) L Ferritin 1614 NG/ML (8-388) H Total Bilirubin 0.3 MG/DL (0.2-1.0) Aspartate Amino Transf (AST/SGOT) 55 U/L (15-37) H Alanine Aminotransferase (ALT/SGPT) 38 U/L (12-78) Alkaline Phosphatase 63 U/L (46-116) Lactate Dehydrogenase 230 U/L (81-234) Total Protein 4.7 G/DL (6.4-8.2) L Albumin 1.8 G/DL (3.4-5.0) L Globulin 2.9 g/dL Albumin/Globulin Ratio 0.6 (1.0-2.7) L Triglycerides Level 110 MG/DL (30-150) Cholesterol Level 96 MG/DL (< 200) LDL Cholesterol 36 mg/dL (<100) HDL Cholesterol 41 MG/DL (40-60) Cholesterol/HDL Ratio 2.3 (3.3-4.4) L Vitamin B12 Level 645 PG/ML (193-986) Folate 2.6 NG/ML (8.6-58.9) L Thyroid Stimulating Hormone (TSH) 1.473 uiU/mL (0.358-3.740) Test 04/11/20 11:15 04/11/20 11:31 04/11/20 16:02 04/11/20 16:27 Vancomycin Level Trough 11.0 ug/mL (5.0-12.0) POC Whole Blood Glucose 84 MG/DL (74-106) Pending 118 MG/DL (74-106) H Microbiology Date/Time Source Procedure Growth Status 04/09/20 08:00 Urine,Clean Catch Urine Culture - Preliminary Strep Species, Gamma-Hemolytic Resulted Objective exam deferred as in isolation per dr obrien note LUNGS: Bilateral air entry. Decreased air in the bases. HEART: S1, S2. Tachycardic, irregular. No murmur or gallop was appreciated. ABDOMEN: Soft, nondistended. Tenderness on the lower abdominal area. Mildly obese. EXTREMITIES: No cyanosis, clubbing, or edema. Wale Wu MD Apr 11, 2020 18:48
--- NOTE | 2020-04-11 19:16 | NUR ---
NURSE HAND-OFF REPORT: Important Events on Shift:bs down to 63, given d50 25ml Patient Status: full code Diet:npo, dr tran consulted already, no new orders recievd Pending Orders: Pending Results/Labs:[] Pending MD notification:[] Latest Vital Signs: Temperature 98.6 , Pulse 79 , B/P 111 /47 , Respiratory Rate 22 , O2 SAT 98 , Nasal Cannula, O2 Flow Rate 2.0 . Vital Sign Comment: [stable EKG Rhythm: Sinus Rhythm Rhythm change?: N MD Notified?: - MD Response: Latest Ortega Fall Score: 45 Fall Risk: High Risk Safety Measures: Call light Within Reach, Bed Alarm Zone 2, Side Rails Side Rails x2, Bed position Low and Locked. Fall Precautions: Yellow Socks Yellow Gown Door Sign Patient Fall Education Report given to adam vaughan.
--- NOTE | 2020-04-11 19:23 | NUR ---
NURSE NOTES: RECEIVED REPORT FROM VARUN LAMA. PATIENT ASLEEP, EASILY AROUSABLE, OPENS EYES SPONTANEOUSLY. NO S/SX OF PAIN OR DISCOMFORT NOTED AT THIS TIME. BREATHING IS EVEN AND UNLABORED ON 2LPM VIA NC, NO S/SX OF DISTRESS NOTED. IV SITES ON RIGHT HAND, LAC PATENT, INTACT ASYMPTOMATIC- IVF OF D5 1/2 NS + 20 MEQ KCL RUNNING PRESCRIBED. RIGHT FEMORAL TLC ASYMPTOMATIC, NO S/SX OF BLEEDING OR INFECTION NOTED. SESAY CATHETER DRAINING WELL TO GRAVITY, URINE CLEAR AND YELLOW IN COLOR. FALL AND ASPIRATION PRECAUTIONS IN PLACE. CONTACT/DROPLET ISOLATION IMPLEMENTED. BED LOCKED AND IN LOWEST POSITION, SIDERAILS UP X 3. CALL LIGHT WITHIN REACH. WILL CONTINUE TO MONITOR PER POC. Addendum: 04/11/20 at 2038 by Concepcion Cotton RN CORRECTION TO URINE COLOR: URINE BLOOD-TINGED.
[2020-04-11] MEDS: Dyna-Hex 2% Top Sol 2oz TOPIC SCH (20:13)
[2020-04-11] MEDS: Vancomycin 1.25gm/NS Premix q24h IVPB SCH (20:14)
[2020-04-11] MEDS: Miralax 17gm pkt ORAL SCH (20:15)
--- NOTE | 2020-04-11 23:55 | NUR ---
NURSE NOTES: ORAL CARE PROVIDED, SESAY CATHETER IRRIGATED ORDERED- PATIENT TOLERATED WELL.
[2020-04-12 03:55] LABS: BASOPHILS % (AUTO) 2.5 % (0.0-2.0); EOSINOPHILS % (AUTO) 1.2 % (0.0-3.0); HEMATOCRIT 25.9 % (37.0-47.0); HEMOGLOBIN 8.7 G/DL (12.0-16.0); LYMPHOCYTES % (AUTO) 12.3 % (20.0-45.0); MEAN CORPUSCULAR VOLUME 85 FL (80-99); MONOCYTES % (AUTO) 7.3 % (1.0-10.0); NEUTROPHILS % (AUTO) 76.8 % (45.0-75.0); PLATELET COUNT 196 K/UL (150-450); RED BLOOD COUNT 3.03 M/UL (4.20-5.40); RED CELL DISTRIBUTION WIDTH 13.1 % (11.6-14.8); WHITE BLOOD COUNT 6.4 K/UL (4.8-10.8)
[2020-04-12 04:00] VITALS: BP 111/60
[2020-04-12 04:41] LABS: ALANINE AMINOTRANSFERASE 29 U/L (12-78); ALBUMIN 1.7 G/DL (3.4-5.0); ALBUMIN/GLOBULIN RATIO 0.6 (1.0-2.7); ALKALINE PHOSPHATASE 65 U/L (46-116); ANION GAP 8 mmol/L (5-15); ASPARTATE AMINO TRANSFERASE 40 U/L (15-37); BILIRUBIN,TOTAL 0.4 MG/DL (0.2-1.0); BLOOD UREA NITROGEN 4 mg/dL (7-18); CALCIUM 7.6 MG/DL (8.5-10.1); CARBON DIOXIDE 25 MMOL/L (21-32); CHLORIDE 106 MMOL/L (98-107); CREATININE 0.4 MG/DL (0.55-1.30); POTASSIUM 3.5 MMOL/L (3.5-5.1); SODIUM 139 MMOL/L (136-145)
--- NOTE | 2020-04-12 05:04 | NUR ---
NURSE NOTES: PATIENT CLEANED, LINEN CHANGED, WOUND CARE DONE, ORAL CARE PROVIDED- PATIENT TOLERATED WELL.
[2020-04-12] MEDS: D5 1/2NS w/KCl 20mEq 1,000 ML IV SCH (05:14)
[2020-04-12] MEDS: NovoLOG Insulin Flexpen SUBQ SCH ×4 (05:14→21:00)
--- NOTE | 2020-04-12 07:00 | NUR ---
NURSE HAND-OFF REPORT: Important Events on Shift: WOUND CARE, FEVER X 1 Patient Status: STABLE Diet: NPO Pending Orders: VENOUS DUPLEX Pending Results/Labs:04/12 AM LABS Pending MD notification:N/A Latest Vital Signs: Temperature 98.0 , Pulse 98 , B/P 137 /40 , Respiratory Rate 22 , O2 SAT 96 , Bi-pap, O2 Flow Rate 10.0 . Vital Sign Comment: STABLE EKG Rhythm: Sinus Rhythm Rhythm change?: N MD Notified?: Y -dr yulisa WONG Response: No New Orders Received Latest Ortega Fall Score: 50 Fall Risk: High Risk Safety Measures: Call light Within Reach, Bed Alarm Zone 2, Side Rails Side Rails x3, Bed position Low and Locked. Fall Precautions: Yellow Socks Report given to VARUN HOLM.
--- NOTE | 2020-04-12 07:53 | NUR ---
NURSE NOTES: RECEIVED PATIENT FROM ALLI RN IN BED, AAO X2 TO NAME AND PLACE WITH EPISODE OF CONFUSION, RE-ORIENTED PATIENT. DENIES ANY PAIN. PATIENT HAS LAC 18G SL AND RIGHT FEMORAL TRIPPLE LUMEN WITH D5 1/2 NS /29MEQ KCL RUNNING AT 75CC/HR. BED IS ON LOWEST POSITION, BEDSIDE RAILS UP X3, BRAKES ENGAGED FOR SAFETY. CALL LIGHT IS WITHIN REACH. WILL CONTINUE WITH THE PLAN OF CARE.
[2020-04-12 08:00] VITALS: BP 126/55
[2020-04-12] MEDS: Pantoprazole Inj IVP SCH ×2 (09:51→20:43)
[2020-04-12] MEDS: Vancomycin 1.25gm/NS Premix q24h IVPB SCH (09:51)
[2020-04-12] MEDS: Potassium Phosphate 15mm/250ml 250 ML IVPB SCH ×2 (10:24→14:40)
[2020-04-12] MEDS: Cefepime HCl 2 GM in D5W 110 ML IV SCH ×2 (10:26→20:43)
--- NOTE | 2020-04-12 10:37 | Pulmonolgy Critical Care Note ---
Critical Care - Asmt/Plan Problems: (1) Hemorrhagic shock (2) Rectal bleeding (3) Sepsis (4) COVID-19 (5) Hematuria (6) History of CVA (cerebrovascular accident) Respiratory: monitor respiratory rate, adjust FIO2 Cardiac: continue to monitor HR/BP Renal: F/U I&O, keep IV fluid, check electrolytes Infectious Disease: check cultures, other - on Cefepime and Vancomycin Gastrointestinal: hold feedings Endocrine: monitor blood sugar Hematologic: monitor H/H, transfuse if hgb<8.5 Neurologic: PRN Ativan, keep patient comfortable Affect: PRN ativan Prophylaxis: Heparin Time Spent (Minutes): 40 Notes Reviewed: veterinary technologist Discussed with: nurses, consultants, case resource managerembedded case manager - Objective Last 24 Hour Vital Signs Date Time Temp Pulse Resp B/P (MAP) Pulse Ox O2 Delivery O2 Flow Rate FiO2 04/12/20 04:00 Nasal Cannula 2.0 04/12/20 04:00 83 04/12/20 04:00 98.2 85 20 111/60 (77) 100 04/12/20 00:57 98.6 04/12/20 00:00 91 04/12/20 00:00 Nasal Cannula 2.0 04/11/20 20:39 100 Nasal Cannula 2.0 28 04/11/20 20:00 84 04/11/20 20:00 Nasal Cannula 2.0 04/11/20 20:00 97.9 85 20 115/56 (75) 98 04/11/20 18:03 2.0 04/11/20 16:00 Nasal Cannula 2.0 04/11/20 16:00 79 04/11/20 16:00 98.6 83 22 111/47 (68) 98 04/11/20 12:00 Nasal Cannula 2.0 04/11/20 11:25 99.5 88 21 103/56 (72) 100 04/11/20 10:41 Nasal Cannula 2.0 Status: awake Condition: critical, improving HEENT: atraumatic Lungs: clear Abdomen: soft, active bowel sounds Extremities: no C/C/E, edema Accucheck: 94 Critical Care - Subjective ROS Limited/Unobtainable: Yes Condition: improving FI02: 28 I&O: Intake and Output 04/11/20 04/12/20 19:00 07:00 Intake Total 1250.0 ml 925 ml Output Total 2080 ml 1400 ml Balance -830.0 ml -475 ml Intake IV Total 1150.0 ml 825 ml Other 100 ml 100 ml Output Urine Total 2080 ml 1400 ml # Bowel Movements 4 4 CXR: pending Labs: Laboratory Tests Test 04/11/20 11:15 04/11/20 11:31 04/11/20 16:02 04/11/20 16:27 Vancomycin Level Trough 11.0 ug/mL (5.0-12.0) POC Whole Blood Glucose 84 MG/DL (74-106) Pending 118 MG/DL (74-106) H Test 04/11/20 20:17 04/12/20 02:50 POC Whole Blood Glucose 77 MG/DL (74-106) White Blood Count 6.4 K/UL (4.8-10.8) Red Blood Count 3.03 M/UL (4.20-5.40) L Hemoglobin 8.7 G/DL (12.0-16.0) L Hematocrit 25.9 % (37.0-47.0) L Mean Corpuscular Volume 85 FL (80-99) Mean Corpuscular Hemoglobin 28.8 PG (27.0-31.0) Mean Corpuscular Hemoglobin Concent 33.7 G/DL (32.0-36.0) Red Cell Distribution Width 13.1 % (11.6-14.8) Platelet Count 196 K/UL (150-450) Mean Platelet Volume 6.0 FL (6.5-10.1) L Neutrophils (%) (Auto) 76.8 % (45.0-75.0) H Lymphocytes (%) (Auto) 12.3 % (20.0-45.0) L Monocytes (%) (Auto) 7.3 % (1.0-10.0) Eosinophils (%) (Auto) 1.2 % (0.0-3.0) Basophils (%) (Auto) 2.5 % (0.0-2.0) H Erythrocyte Sedimentation Rate 20 MM/HR (0-30) Sodium Level 139 MMOL/L (136-145) Potassium Level 3.5 MMOL/L (3.5-5.1) Chloride Level 106 MMOL/L (98-107) Carbon Dioxide Level 25 MMOL/L (21-32) Anion Gap 8 mmol/L (5-15) Blood Urea Nitrogen 4 mg/dL (7-18) L Creatinine 0.4 MG/DL (0.55-1.30) L Estimat Glomerular Filtration Rate > 60 mL/min (>60) Glucose Level 94 MG/DL (74-106) Calcium Level 7.6 MG/DL (8.5-10.1) L Phosphorus Level 2.0 MG/DL (2.5-4.9) L Magnesium Level 1.6 MG/DL (1.8-2.4) L Total Bilirubin 0.4 MG/DL (0.2-1.0) Aspartate Amino Transf (AST/SGOT) 40 U/L (15-37) H Alanine Aminotransferase (ALT/SGPT) 29 U/L (12-78) Alkaline Phosphatase 65 U/L (46-116) C-Reactive Protein, Quantitative 6.2 mg/dL (0.00-0.90) H Total Protein 4.5 G/DL (6.4-8.2) L Albumin 1.7 G/DL (3.4-5.0) L Globulin 2.8 g/dL Albumin/Globulin Ratio 0.6 (1.0-2.7) L Marina Buitrago MD Apr 12, 2020 10:37
--- NOTE | 2020-04-12 11:48 | Cardiology Progress Note ---
Assessment/Plan Assessment/Plan hs of hypertension, diabetes previous CVA, COVID infection Sinus tachy (incorrect diagnosis of afib with tachycardia) hypotension, a/ hemorraghic shock vaginal bleeding. anemia s/p prbc tx pt in covid isolation exam deferred remain npo for possible gi bleed is on ivf no hematuria in [place] tele personally reviewed no afib just sinus some low grade fever abx supportive care keep on tele monitoring bp seem ok d/w rn Subjective Subjective covid pt uin soloalion per rn remain npoo pendign egd saturation well on 2 l nc coughing but not seem productive Objective Last 24 Hour Vital Signs Date Time Temp Pulse Resp B/P (MAP) Pulse Ox O2 Delivery O2 Flow Rate FiO2 04/12/20 08:00 Nasal Cannula 2.0 04/12/20 08:00 97.5 80 21 126/55 (78) 100 04/12/20 08:00 80 04/12/20 04:00 Nasal Cannula 2.0 04/12/20 04:00 83 04/12/20 04:00 98.2 85 20 111/60 (77) 100 04/12/20 00:57 98.6 04/12/20 00:00 91 04/12/20 00:00 Nasal Cannula 2.0 04/11/20 20:39 100 Nasal Cannula 2.0 28 04/11/20 20:00 84 04/11/20 20:00 Nasal Cannula 2.0 04/11/20 20:00 97.9 85 20 115/56 (75) 98 04/11/20 18:03 2.0 04/11/20 16:00 Nasal Cannula 2.0 04/11/20 16:00 79 04/11/20 16:00 98.6 83 22 111/47 (68) 98 04/11/20 12:00 Nasal Cannula 2.0 Intake and Output 04/11/20 04/12/20 19:00 07:00 Intake Total 1250.0 ml 925 ml Output Total 2080 ml 1400 ml Balance -830.0 ml -475 ml Intake IV Total 1150.0 ml 825 ml Other 100 ml 100 ml Output Urine Total 2080 ml 1400 ml # Bowel Movements 4 4 Laboratory Tests Test 04/11/20 16:02 04/11/20 16:27 04/11/20 20:17 04/12/20 02:50 POC Whole Blood Glucose Pending 118 MG/DL (74-106) H 77 MG/DL (74-106) White Blood Count 6.4 K/UL (4.8-10.8) Red Blood Count 3.03 M/UL (4.20-5.40) L Hemoglobin 8.7 G/DL (12.0-16.0) L Hematocrit 25.9 % (37.0-47.0) L Mean Corpuscular Volume 85 FL (80-99) Mean Corpuscular Hemoglobin 28.8 PG (27.0-31.0) Mean Corpuscular Hemoglobin Concent 33.7 G/DL (32.0-36.0) Red Cell Distribution Width 13.1 % (11.6-14.8) Platelet Count 196 K/UL (150-450) Mean Platelet Volume 6.0 FL (6.5-10.1) L Neutrophils (%) (Auto) 76.8 % (45.0-75.0) H Lymphocytes (%) (Auto) 12.3 % (20.0-45.0) L Monocytes (%) (Auto) 7.3 % (1.0-10.0) Eosinophils (%) (Auto) 1.2 % (0.0-3.0) Basophils (%) (Auto) 2.5 % (0.0-2.0) H Erythrocyte Sedimentation Rate 20 MM/HR (0-30) Sodium Level 139 MMOL/L (136-145) Potassium Level 3.5 MMOL/L (3.5-5.1) Chloride Level 106 MMOL/L (98-107) Carbon Dioxide Level 25 MMOL/L (21-32) Anion Gap 8 mmol/L (5-15) Blood Urea Nitrogen 4 mg/dL (7-18) L Creatinine 0.4 MG/DL (0.55-1.30) L Estimat Glomerular Filtration Rate > 60 mL/min (>60) Glucose Level 94 MG/DL (74-106) Calcium Level 7.6 MG/DL (8.5-10.1) L Phosphorus Level 2.0 MG/DL (2.5-4.9) L Magnesium Level 1.6 MG/DL (1.8-2.4) L Total Bilirubin 0.4 MG/DL (0.2-1.0) Aspartate Amino Transf (AST/SGOT) 40 U/L (15-37) H Alanine Aminotransferase (ALT/SGPT) 29 U/L (12-78) Alkaline Phosphatase 65 U/L (46-116) C-Reactive Protein, Quantitative 6.2 mg/dL (0.00-0.90) H Total Protein 4.5 G/DL (6.4-8.2) L Albumin 1.7 G/DL (3.4-5.0) L Globulin 2.8 g/dL Albumin/Globulin Ratio 0.6 (1.0-2.7) L Test 04/12/20 11:05 POC Whole Blood Glucose 87 MG/DL (74-106) Objective exam deferred as in isolation per skinny note Status: awake HEENT: atraumatic Lungs: clear Abdomen: soft, active bowel sounds Extremities: no C/C/E, edema Wale Wu MD Apr 12, 2020 11:48
[2020-04-12 12:00] VITALS: BP 119/75
[2020-04-12] MEDS ORDERED: Varibar Thin Liquid powder 148gm MC PRN (13:15)
[2020-04-12] MEDS ORDERED: Varibar Pudding 230ml MC PRN (13:15)
[2020-04-12] MEDS ORDERED: Varibar Honey 250ml MC PRN (13:15)
[2020-04-12] MEDS ORDERED: Varibar Nectar 240ml MC PRN (13:15)
--- NOTE | 2020-04-12 13:52 | Consultation ---
History of Present Illness General Date patient seen: Apr 12, 2020 Reason for Hospitalization: Altered Mental Status Present Illness HPI 64-year-old very unfortunate female with past medical history significant for inoperable endometrial adenocarcinoma, status post brachytherapy in December 16, 2019 at [facility], history of hypertension, CVA, diabetes type 2, chronic lacunar infarction with bilateral basal ganglia and king radiata and left parietal lobe stroke, prior history of UTI, who presented to the hospital from nursing facility after was noted to have a COVID-19 positive. Admitted for care and management. on admission noted to have abnormal wounds and labs. surgery called to evaluate and assist with care. Allergies: Coded Allergies: No Known Allergies (Unverified , 03/11/19) COVID-19 Screening Contact w/high risk pt: Yes Experienced COVID-19 symptoms?: Yes Coronavirus symptoms experienc: Cough Medication History Scheduled Aspirin* (Aspirin*), 81 MG ORAL DAILY Atorvastatin Calcium* (Lipitor*), 80 MG ORAL BEDTIME, (Reported) Cephalexin* (Keflex*), 250 MG ORAL EVERY 6 HOURS, (Reported) Clopidogrel Bisulfate* (Plavix*), 75 MG ORAL DAILY, (Reported) Docusate Sodium* (Colace*), 200 MG ORAL DAILY, (Reported) Krill Oil (Krill Oil), 500 MG PO DAILY, (Reported) Magnesium Oxide (Magnesium), 400 MG PO DAILY, (Reported) Mirtazapine* (Remeron*), 30 MG ORAL BEDTIME, (Reported) Multivitamin With Minerals (Multivitamins With Minerals*), 1 TAB ORAL DAILY, (Reported) Polyethylene Glycol 3350* (Miralax*), 17 GM ORAL DAILY, (Reported) Tuberculin Ppd (Tubersol), 0.1 ML IDERMAL bedtime every , (Reported) Scheduled PRN Acetaminophen With Codeine (T#3) (Tylenol #3 Tab*), 1 TAB ORAL Q4H PRN for For Pain, (Reported) Acetaminophen* (Acetaminophen 325MG Tablet*), 650 MG ORAL Q4H PRN for Temp >100.5, (Reported) Melatonin (Melatonin), 3 MG ORAL BEDTIME PRN for Insomnia, (Reported) Ondansetron Odt* (Zofran Odt*), 8 MG ORAL Q6H PRN for Nausea & Vomiting, (Reported) Miscellaneous Medications Diclofenac Sodium (Diclofenac Sodium), 2 GM TP, (Reported) Loratadine (Loratadine), 10 MG PO, (Reported) Sennosides (Senna), 8.6 MG PO, (Reported) Discontinued Medications Atorvastatin Calcium* (Lipitor*), 10 MG ORAL BEDTIME Discontinued Reason: Pt stopped taking med Atorvastatin Calcium* (Atorvastatin Calcium*), 80 MG ORAL BEDTIME, (Reported) Discontinued Reason: Prescription changed Clopidogrel Bisulfate* (Plavix*), 75 MG ORAL DAILY Discontinued Reason: Pt stopped taking med Magnesium (Magnesium), 400 MG PO DAILY, (Reported) Discontinued Reason: Prescription changed Mirtazapine* (Remeron*), 15 MG ORAL BEDTIME, (Reported) Discontinued Reason: Prescription changed [place]-3 Fatty Acids ([place]-3), 500 MG PO, (Reported) Discontinued Reason: Prescription changed Patient History Limited by: medical condition History Provided By: Patient, Medical Record Healthcare decision maker N Resuscitation status Advanced Directive on File Past Medical/Surgical History Past Medical/Surgical History: (1) Hematuria (2) Rectal bleeding (3) Hemorrhagic shock (4) Electrolyte imbalance (5) Recurrent falls (6) Acute CVA (cerebrovascular accident) (7) Septic shock (8) Anemia (9) Sepsis (10) Altered mental status (11) Atrial fibrillation with RVR (12) COVID-19 (13) History of CVA (cerebrovascular accident) Review of Systems Review of Symptoms General ROS: no weight loss or fever Psychological ROS: no depression or mood changes, no memory loss Ophthalmic ROS: no visual changes or eye irritation ENT ROS: no nasal congestion, hearing loss, dizziness Allergy and Immunology ROS: no allergic symptoms or urticaria Hematological and Lymphatic ROS: no swollen glands, unusual bleeding or bruising Endocrine ROS: no polyuria, polydipsia, weight changes, temperature intolerance Respiratory ROS: no cough, shortness of breath, or wheezing Cardiovascular ROS: no chest pain or dyspnea on exertion Gastrointestinal ROS: denies abdominal pain, bright red blood in stool. Musculoskeletal ROS: no myalgias or arthralgias Neurological ROS: no TIA or stroke symptoms Dermatological ROS: no new or changing skin lesions, rashes or pruritis limited Physical Exam Physical Exam General appearance: alert, no distress, appears stated age Head: Normocephalic, without obvious abnormality, atraumatic Eyes: conjunctivae/corneas clear. PERRL, EOM's intact. Fundi benign Throat: Lips, mucosa, and tongue normal. Teeth and gums normal Neck: supple, symmetrical, trachea midline, no adenopathy, thyroid: not enlarged, symmetric, no tenderness/mass/nodules, no carotid bruit and no JVD Lungs: clear to auscultation bilaterally Heart: regular rate and rhythm, S1, S2 normal, no murmur, click, rub or gallop Abdomen: soft, non-tender. Bowel sounds normal. No masses, no organomegaly Extremities: extremities normal, atraumatic, no cyanosis or edema Pulses: 2+ and symmetric Skin: Skin see below Neurologic: Grossly normal Last 24 Hour Vital Signs Date Time Temp Pulse Resp B/P (MAP) Pulse Ox O2 Delivery O2 Flow Rate FiO2 04/12/20 12:00 98.1 94 20 119/75 (90) 99 04/12/20 12:00 84 04/12/20 12:00 Nasal Cannula 2.0 04/12/20 08:00 Nasal Cannula 2.0 04/12/20 08:00 97.5 80 21 126/55 (78) 100 04/12/20 08:00 80 04/12/20 07:00 100 Nasal Cannula 2.0 28 04/12/20 04:00 Nasal Cannula 2.0 04/12/20 04:00 83 04/12/20 04:00 98.2 85 20 111/60 (77) 100 04/12/20 00:57 98.6 04/12/20 00:00 91 04/12/20 00:00 Nasal Cannula 2.0 04/11/20 20:39 100 Nasal Cannula 2.0 28 04/11/20 20:00 84 04/11/20 20:00 Nasal Cannula 2.0 04/11/20 20:00 97.9 85 20 115/56 (75) 98 04/11/20 18:03 2.0 04/11/20 16:00 Nasal Cannula 2.0 04/11/20 16:00 79 04/11/20 16:00 98.6 83 22 111/47 (68) 98 Intake and Output 04/11/20 04/12/20 19:00 07:00 Intake Total 1250.0 ml 925 ml Output Total 2080 ml 1400 ml Balance -830.0 ml -475 ml Intake IV Total 1150.0 ml 825 ml Other 100 ml 100 ml Output Urine Total 2080 ml 1400 ml # Bowel Movements 4 4 Laboratory Tests Test 04/11/20 16:02 04/11/20 16:27 04/11/20 20:17 04/12/20 02:50 POC Whole Blood Glucose Pending 118 MG/DL (74-106) H 77 MG/DL (74-106) White Blood Count 6.4 K/UL (4.8-10.8) Red Blood Count 3.03 M/UL (4.20-5.40) L Hemoglobin 8.7 G/DL (12.0-16.0) L Hematocrit 25.9 % (37.0-47.0) L Mean Corpuscular Volume 85 FL (80-99) Mean Corpuscular Hemoglobin 28.8 PG (27.0-31.0) Mean Corpuscular Hemoglobin Concent 33.7 G/DL (32.0-36.0) Red Cell Distribution Width 13.1 % (11.6-14.8) Platelet Count 196 K/UL (150-450) Mean Platelet Volume 6.0 FL (6.5-10.1) L Neutrophils (%) (Auto) 76.8 % (45.0-75.0) H Lymphocytes (%) (Auto) 12.3 % (20.0-45.0) L Monocytes (%) (Auto) 7.3 % (1.0-10.0) Eosinophils (%) (Auto) 1.2 % (0.0-3.0) Basophils (%) (Auto) 2.5 % (0.0-2.0) H Erythrocyte Sedimentation Rate 20 MM/HR (0-30) Sodium Level 139 MMOL/L (136-145) Potassium Level 3.5 MMOL/L (3.5-5.1) Chloride Level 106 MMOL/L (98-107) Carbon Dioxide Level 25 MMOL/L (21-32) Anion Gap 8 mmol/L (5-15) Blood Urea Nitrogen 4 mg/dL (7-18) L Creatinine 0.4 MG/DL (0.55-1.30) L Estimat Glomerular Filtration Rate > 60 mL/min (>60) Glucose Level 94 MG/DL (74-106) Calcium Level 7.6 MG/DL (8.5-10.1) L Phosphorus Level 2.0 MG/DL (2.5-4.9) L Magnesium Level 1.6 MG/DL (1.8-2.4) L Total Bilirubin 0.4 MG/DL (0.2-1.0) Aspartate Amino Transf (AST/SGOT) 40 U/L (15-37) H Alanine Aminotransferase (ALT/SGPT) 29 U/L (12-78) Alkaline Phosphatase 65 U/L (46-116) C-Reactive Protein, Quantitative 6.2 mg/dL (0.00-0.90) H Total Protein 4.5 G/DL (6.4-8.2) L Albumin 1.7 G/DL (3.4-5.0) L Globulin 2.8 g/dL Albumin/Globulin Ratio 0.6 (1.0-2.7) L Test 04/12/20 11:05 POC Whole Blood Glucose 87 MG/DL (74-106) Height (Feet): 5 Height (Inches): 6.00 Weight (Pounds): 160 Medications Current Medications Medications (Trade) Dose Ordered Sig/Jere Route PRN Reason Start Time Stop Time Status Last Admin Dose Admin Acetaminophen (Tylenol) 650 mg Q4H PRN ORAL fever 04/08/20 19:00 05/08/20 18:59 04/12/20 00:27 Albuterol/ Ipratropium (Albuterol/ Ipratropium) 3 ml Q4H PRN HHN Shortness of Breath 04/08/20 19:00 04/13/20 18:59 Barium Sulfate (Varibar Honey) 250 ml NOW PRN MC RAD 04/12/20 13:15 04/15/20 13:04 Barium Sulfate (Varibar [place]) 240 ml NOW PRN MC RAD 04/12/20 13:15 04/15/20 13:04 Barium Sulfate (Varibar Pudding) 230 ml NOW PRN MC RAD 04/12/20 13:15 04/15/20 13:04 Barium Sulfate (Varibar Thin Liquid powder) 148 gm NOW PRN MC RAD 04/12/20 13:15 04/15/20 13:04 Cefepime HCl 2 gm/ Dextrose 110 ml @ 220 mls/hr Q12H IV 04/09/20 21:00 04/16/20 20:59 04/12/20 10:26 Chlorhexidine Gluconate (Geno-Hex 2%) 1 applic DAILY@2000 TOPIC 04/08/20 20:00 07/07/20 19:59 04/11/20 20:13 Dextrose (Dextrose 50%) 25 ml Q30M PRN IV Hypoglycemia 04/09/20 07:45 07/08/20 07:44 04/11/20 16:12 Dextrose (Dextrose 50%) 50 ml Q30M PRN IV Hypoglycemia 04/09/20 07:45 07/08/20 07:44 Dextrose/ Electrolytes 1,000 ml @ 75 mls/hr [id number] IV 04/08/20 22:30 05/08/20 22:29 04/12/20 05:14 Insulin Aspart (NovoLOG) BEFORE MEALS AND HS SUBQ 04/09/20 11:30 07/08/20 11:29 04/10/20 12:08 Magnesium Sulfate 100 ml @ 100 mls/hr Q1H IVPB 04/12/20 10:30 04/12/20 14:29 04/12/20 13:04 Metoprolol Tartrate (Lopressor) 5 mg Q1H PRN IVP spb more than 120 04/08/20 19:00 07/07/20 18:59 Ondansetron HCl (Zofran) 4 mg Q6H PRN IVP Nausea & Vomiting 04/08/20 19:00 05/08/20 18:59 Pantoprazole (Protonix) 40 mg EVERY 12 HOURS IVP 04/10/20 21:00 05/10/20 20:59 04/12/20 09:51 Polyethylene Glycol (Miralax) 17 gm BEDTIME ORAL 04/09/20 21:00 05/09/20 20:59 04/11/20 20:15 Polyethylene Glycol (Miralax) 17 gm DAILYPRN PRN ORAL Constipation 04/08/20 19:00 05/08/20 18:59 Potassium Phosphate 250 ml @ 62.5 mls/hr Q4H IVPB 04/12/20 10:30 04/12/20 18:29 04/12/20 10:24 Temazepam (Restoril) 15 mg HSPRN PRN ORAL Insomnia 04/08/20 19:00 04/15/20 18:59 Vancomycin HCl (Vanco pharmacy to dose) 1 ea DAILY PRN MISC . 04/08/20 19:15 05/08/20 19:14 Vancomycin/Sodium Chloride 275 ml @ 183.333 mls/hr Q12HR@0900,2100 IVPB 04/11/20 21:00 04/16/20 20:59 04/12/20 09:51 Assessment/Plan Problem List: (1) Hematuria ICD Codes: R31.9 - Hematuria, unspecified SNOMED: 97361181 (2) Rectal bleeding Assessment & Plan: [age]-year-old female identified to have rectal bleeding on admission. GI aware surgery aware no active bleeding at this time hemoglobin noted. Transfuse PRBC as needed. Pending scope consideration. ICD Codes: K62.5 - Hemorrhage of anus and rectum SNOMED: 99484153 (3) Hemorrhagic shock ICD Codes: R57.8 - Other shock SNOMED: 731954 (4) Electrolyte imbalance ICD Codes: E87.8 - Other disorders of electrolyte and fluid balance, not elsewhere classified SNOMED: 049700746 (5) Recurrent falls ICD Codes: R29.6 - Repeated falls SNOMED: 699317069 (6) Acute CVA (cerebrovascular accident) ICD Codes: I63.9 - Cerebral infarction, unspecified SNOMED: 962547779, 211730160 (7) Septic shock ICD Codes: A41.9 - Sepsis, unspecified organism; R65.21 - Severe sepsis with septic shock SNOMED: 34879498 (8) Anemia ICD Codes: D64.9 - Anemia, unspecified SNOMED: 781770286 (9) Sepsis ICD Codes: A41.9 - Sepsis, unspecified organism SNOMED: 02908301 (10) Altered mental status ICD Codes: R41.82 - Altered mental status, unspecified SNOMED: 463453874 (11) Atrial fibrillation with RVR ICD Codes: I48.91 - Unspecified atrial fibrillation SNOMED: 860063761020950 (12) COVID-19 Assessment & Plan: ++ as per ID and pulm cxr noted ICD Codes: U07.1 - COVID-19 SNOMED: 337417261 (13) History of CVA (cerebrovascular accident) ICD Codes: Z86.73 - Personal history of transient ischemic attack (TIA), and cerebral infarction without residual deficits SNOMED: 727264877 (14) Decubitus skin ulcer Assessment & Plan: Patient identified on admission to have a 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 apply therahoney to areas of slough. apply mositure barrier paste on the periwound. cover with optifoam dressing. change Q3D and PRN. Apply cavilon on both heels& malleoli. Cover each site with optifoam dressing. Change Q7D and PRN. ICD Codes: L89.90 - Pressure ulcer of unspecified site, unspecified stage SNOMED: 690234537 Elian Ren Apr 12, 2020 13:52
--- NOTE | 2020-04-12 15:00 | NUR ---
CASE MANAGEMENT: REVIEW SI: COVID-19 . PNA . RECTAL BLEEDING . HEMATURIA T 97.5 HR 80 RR 21 BP 126/55 SAT 100% NC/2L H/H 8.7/25.9 BUN 4 CR 0.4 MAG 1.6 IS: ZYVOX PO Q12HR K PHOS IVF Q4HR PROTONIX IV Q12HR CEFEPIME IV Q12HR PENDING GI CONSULT FOR RECTAL BLEED STEP DOWN UNIT STATUS DCP: PATIENT IS FROM [facility]
--- NOTE | 2020-04-12 15:01 | Consultation ---
History of Present Illness General Date patient seen: Apr 12, 2020 Chief Complaint: Altered Mental Status Present Illness HPI 64 y/o F with hx of inoperable endometrial adenocarcinoma sp brachytherapy 12/16/19, HTN, CVA/TIA, DVT, MDD, HLD, dysphagia, Afib, Dm2, chronic lacunar infa rction w/ b/l ganglia and king radiata and L parietal lobe stroke, UTI, [place] resident( [facility]) presented to ED on 04/08 with after found to be COVID19 positive at facility (dx'ed 2 days prior to admission), altered mental status, vaginal bleeding and tachycardic. When EMS arrived HR 160s, irregular and BP 80/60. Upon admission Hgb 7 and received 3 untis PRBCs, also mild yaron vation of troponin. Allergies: Coded Allergies: No Known Allergies (Unverified , 03/11/19) Medication History Scheduled Aspirin* (Aspirin*), 81 MG ORAL DAILY Atorvastatin Calcium* (Lipitor*), 80 MG ORAL BEDTIME, (Reported) Cephalexin* (Keflex*), 250 MG ORAL EVERY 6 HOURS, (Reported) Clopidogrel Bisulfate* (Plavix*), 75 MG ORAL DAILY, (Reported) Docusate Sodium* (Colace*), 200 MG ORAL DAILY, (Reported) Krill Oil (Krill Oil), 500 MG PO DAILY, (Reported) Magnesium Oxide (Magnesium), 400 MG PO DAILY, (Reported) Mirtazapine* (Remeron*), 30 MG ORAL BEDTIME, (Reported) Multivitamin With Minerals (Multivitamins With Minerals*), 1 TAB ORAL DAILY, (Reported) Polyethylene Glycol 3350* (Miralax*), 17 GM ORAL DAILY, (Reported) Tuberculin Ppd (Tubersol), 0.1 ML IDERMAL bedtime every , (Reported) Scheduled PRN Acetaminophen With Codeine (T#3) (Tylenol #3 Tab*), 1 TAB ORAL Q4H PRN for For Pain, (Reported) Acetaminophen* (Acetaminophen 325MG Tablet*), 650 MG ORAL Q4H PRN for Temp >100.5, (Reported) Melatonin (Melatonin), 3 MG ORAL BEDTIME PRN for Insomnia, (Reported) Ondansetron Odt* (Zofran Odt*), 8 MG ORAL Q6H PRN for Nausea & Vomiting, (Reported) Miscellaneous Medications Diclofenac Sodium (Diclofenac Sodium), 2 GM TP, (Reported) Loratadine (Loratadine), 10 MG PO, (Reported) Sennosides (Senna), 8.6 MG PO, (Reported) Discontinued Medications Atorvastatin Calcium* (Lipitor*), 10 MG ORAL BEDTIME Discontinued Reason: Pt stopped taking med Atorvastatin Calcium* (Atorvastatin Calcium*), 80 MG ORAL BEDTIME, (Reported) Discontinued Reason: Prescription changed Clopidogrel Bisulfate* (Plavix*), 75 MG ORAL DAILY Discontinued Reason: Pt stopped taking med Magnesium (Magnesium), 400 MG PO DAILY, (Reported) Discontinued Reason: Prescription changed Mirtazapine* (Remeron*), 15 MG ORAL BEDTIME, (Reported) Discontinued Reason: Prescription changed [place]-3 Fatty Acids ([place]-3), 500 MG PO, (Reported) Discontinued Reason: Prescription changed Patient History Healthcare decision maker N Resuscitation status Advanced Directive on File Patient History Narrative . Pmhx: as above Shx: The patient is a residential resident. No smoking, alcohol, or drugs. Fhx: non contributory Review of Systems All Other Systems: negative except mentioned in HPI Physical Exam Physical Exam Narrative GENERAL: The patient awake, responsive, however altered and confused. The patient appears to be paler and chronically-ill appearing. HEAD AND NECK: Pupils are equal and reactive to light. Extraocular movements are intact. Neck was supple. No JVD. LUNGS: Bilateral air entry. Decreased air in the bases. HEART: S1, S2. Tachycardic, irregular. No murmur or gallop was appreciated. ABDOMEN: Soft, nondistended. Tenderness on the lower abdominal area. Mildly obese. EXTREMITIES: No cyanosis, clubbing, or edema. GENITOURINARY: The patient noted to have Lowe catheter with dark red urine collection in a Lowe catheter. N Last 24 Hour Vital Signs Date Time Temp Pulse Resp B/P (MAP) Pulse Ox O2 Delivery O2 Flow Rate FiO2 04/12/20 12:00 98.1 94 20 119/75 (90) 99 04/12/20 12:00 84 04/12/20 12:00 Nasal Cannula 2.0 04/12/20 08:00 Nasal Cannula 2.0 04/12/20 08:00 97.5 80 21 126/55 (78) 100 9/22/20 08:00 80 04/12/20 07:00 100 Nasal Cannula 2.0 28 04/12/20 04:00 Nasal Cannula 2.0 04/12/20 04:00 83 04/12/20 04:00 98.2 85 20 111/60 (77) 100 04/12/20 00:57 98.6 04/12/20 00:00 91 04/12/20 00:00 Nasal Cannula 2.0 04/11/20 20:39 100 Nasal Cannula 2.0 28 04/11/20 20:00 84 04/11/20 20:00 Nasal Cannula 2.0 04/11/20 20:00 97.9 85 20 115/56 (75) 98 04/11/20 18:03 2.0 04/11/20 16:00 Nasal Cannula 2.0 04/11/20 16:00 79 04/11/20 16:00 98.6 83 22 111/47 (68) 98 Intake and Output 04/11/20 04/12/20 19:00 07:00 Intake Total 1250.0 ml 925 ml Output Total 2080 ml 1400 ml Balance -830.0 ml -475 ml Intake IV Total 1150.0 ml 825 ml Other 100 ml 100 ml Output Urine Total 2080 ml 1400 ml # Bowel Movements 4 4 Laboratory Tests Test 04/11/20 16:02 04/11/20 16:27 04/11/20 20:17 04/12/20 02:50 POC Whole Blood Glucose Pending 118 MG/DL (74-106) H 77 MG/DL (74-106) White Blood Count 6.4 K/UL (4.8-10.8) Red Blood Count 3.03 M/UL (4.20-5.40) L Hemoglobin 8.7 G/DL (12.0-16.0) L Hematocrit 25.9 % (37.0-47.0) L Mean Corpuscular Volume 85 FL (80-99) Mean Corpuscular Hemoglobin 28.8 PG (27.0-31.0) Mean Corpuscular Hemoglobin Concent 33.7 G/DL (32.0-36.0) Red Cell Distribution Width 13.1 % (11.6-14.8) Platelet Count 196 K/UL (150-450) Mean Platelet Volume 6.0 FL (6.5-10.1) L Neutrophils (%) (Auto) 76.8 % (45.0-75.0) H Lymphocytes (%) (Auto) 12.3 % (20.0-45.0) L Monocytes (%) (Auto) 7.3 % (1.0-10.0) Eosinophils (%) (Auto) 1.2 % (0.0-3.0) Basophils (%) (Auto) 2.5 % (0.0-2.0) H Erythrocyte Sedimentation Rate 20 MM/HR (0-30) Sodium Level 139 MMOL/L (136-145) Potassium Level 3.5 MMOL/L (3.5-5.1) Chloride Level 106 MMOL/L (98-107) Carbon Dioxide Level 25 MMOL/L (21-32) Anion Gap 8 mmol/L (5-15) Blood Urea Nitrogen 4 mg/dL (7-18) L Creatinine 0.4 MG/DL (0.55-1.30) L Estimat Glomerular Filtration Rate > 60 mL/min (>60) Glucose Level 94 MG/DL (74-106) Calcium Level 7.6 MG/DL (8.5-10.1) L Phosphorus Level 2.0 MG/DL (2.5-4.9) L Magnesium Level 1.6 MG/DL (1.8-2.4) L Total Bilirubin 0.4 MG/DL (0.2-1.0) Aspartate Amino Transf (AST/SGOT) 40 U/L (15-37) H Alanine Aminotransferase (ALT/SGPT) 29 U/L (12-78) Alkaline Phosphatase 65 U/L (46-116) C-Reactive Protein, Quantitative 6.2 mg/dL (0.00-0.90) H Total Protein 4.5 G/DL (6.4-8.2) L Albumin 1.7 G/DL (3.4-5.0) L Globulin 2.8 g/dL Albumin/Globulin Ratio 0.6 (1.0-2.7) L Test 04/12/20 11:05 POC Whole Blood Glucose 87 MG/DL (74-106) Height (Feet): 5 Height (Inches): 6.00 Weight (Pounds): 160 Medications Current Medications Medications (Trade) Dose Ordered Sig/Jere Route PRN Reason Start Time Stop Time Status Last Admin Dose Admin Acetaminophen (Tylenol) 650 mg Q4H PRN ORAL fever 04/08/20 19:00 05/08/20 18:59 04/12/20 00:27 Albuterol/ Ipratropium (Albuterol/ Ipratropium) 3 ml Q4H PRN HHN Shortness of Breath 04/08/20 19:00 04/13/20 18:59 Barium Sulfate (Varibar Honey) 250 ml NOW PRN MC RAD 04/12/20 13:15 04/15/20 13:04 Barium Sulfate (Varibar [place]) 240 ml NOW PRN MC RAD 04/12/20 13:15 04/15/20 13:04 Barium Sulfate (Varibar Pudding) 230 ml NOW PRN MC RAD 04/12/20 13:15 04/15/20 13:04 Barium Sulfate (Varibar Thin Liquid powder) 148 gm NOW PRN RAD 04/12/20 13:15 04/15/20 13:04 Cefepime HCl 2 gm/ Dextrose 110 ml @ 220 mls/hr Q12H IV 04/09/20 21:00 04/16/20 20:59 04/12/20 10:26 Chlorhexidine Gluconate (Geno-Hex 2%) 1 applic DAILY@2000 TOPIC 04/08/20 20:00 07/07/20 19:59 04/11/20 20:13 Dextrose (Dextrose 50%) 25 ml Q30M PRN IV Hypoglycemia 04/09/20 07:45 07/08/20 07:44 04/11/20 16:12 Dextrose (Dextrose 50%) 50 ml Q30M PRN IV Hypoglycemia 04/09/20 07:45 07/08/20 07:44 Dextrose/ Electrolytes 1,000 ml @ 75 mls/hr [id number] IV 04/08/20 22:30 05/08/20 22:29 04/12/20 05:14 Insulin Aspart (NovoLOG) BEFORE MEALS AND HS SUBQ 04/09/20 11:30 07/08/20 11:29 04/10/20 12:08 Magnesium Sulfate 100 ml @ 100 mls/hr Q1H IVPB 04/12/20 10:30 04/12/20 14:29 04/12/20 13:54 Metoprolol Tartrate (Lopressor) 5 mg Q1H PRN IVP spb more than 120 04/08/20 19:00 07/07/20 18:59 Ondansetron HCl (Zofran) 4 mg Q6H PRN IVP Nausea & Vomiting 04/08/20 19:00 05/08/20 18:59 Pantoprazole (Protonix) 40 mg EVERY 12 HOURS IVP 04/10/20 21:00 05/10/20 20:59 04/12/20 09:51 Polyethylene Glycol (Miralax) 17 gm BEDTIME ORAL 04/09/20 21:00 05/09/20 20:59 04/11/20 20:15 Polyethylene Glycol (Miralax) 17 gm DAILYPRN PRN ORAL Constipation 04/08/20 19:00 05/08/20 18:59 Potassium Phosphate 250 ml @ 62.5 mls/hr Q4H IVPB 04/12/20 10:30 04/12/20 18:29 04/12/20 10:24 Temazepam (Restoril) 15 mg HSPRN PRN ORAL Insomnia 04/08/20 19:00 04/15/20 18:59 Vancomycin HCl (Vanco pharmacy to dose) 1 ea DAILY PRN MISC . 04/08/20 19:15 05/08/20 19:14 Vancomycin/Sodium Chloride 275 ml @ 183.333 mls/hr Q12HR@0900,2100 IVPB 04/11/20 21:00 04/16/20 20:59 04/12/20 09:51 Assessment/Plan Assessment/Plan: Abx: IV Vancomycin 04/08- Cefepime 04/08- Assessment: Septic Shock- SP COVID19 pneumonia- on 2l NC -04/12 CXR: Bilateral infiltrates, developing since 04/08/2020, likely on the basis of pneumonia. -04/08 CXR: Mild diffuse peribronchial thickening in the absence of airspace consolidation, which is nonspecific but can be seen with infectious/inflammatory airways disease in the appropriate clinical context. rapid covid pcr + UTI -04/09 ucx >100k VRE (E. faecium); S linezolid -04/08 u/a wbc tnct, nit neg, leuk +3; ucx <10k P, mirabilis (S Ceftriaxone, Zosyn), >100k gamma hemolytic strep Gram positive bacteremia- likely contaminant -04/08 Bcx 1/4 S. hominis, 2/4 S. auricularis Low grade fever No leukocytosis Vaginal bleeding -CT abd/p wo: Study limited due to lack of IV contrast. Pulmonary findings could represent multifocal pneumonia or aspiration.These findings could also represent viral pneumonia, although this is not highly specific pattern. Prominent rectal stool burden with mild wall thickening could represent stercoral colitis in the proper context. Otherwise, diffuse large colonic stool burden could be a cause for pain. Left superior renal pole ill-defined mild hyperdensity could be a manifestation of chronic medical renal disease in the proper context. Consider outpatient CT adrenal glands to further evaluate indeterminate left adrenal 1.2 cm nodularity. Calcified fibroid uterus. Appendectomy. ROSA MARIA, SP AST elevation; improving inoperable endometrial adenocarcinoma sp brachytherapy 12/16/19 HTN CVA/TIA hx of DVT MDD HLD dysphagia Afib Dm2 chronic lacunar infarction w/ b/l ganglia and king radiata and L parietal lobe stroke hx of UTI [place] resident( [facility]) Plan: -Switch IV Vancomycin #5 to PO Zyvox for both GPC bacteremia and VRE UTi -Cefepime #5 for PRoteus UTI -Start remdesivir- explained risks and benefits; patient agreed. CXR worsening -f/u cx -Monitor CBC/CMP, temperatures -COVID19 isolation -Bcx x2 -CXR Thank you for this consultation. Will continue to follow along with you. Discussed with Laurie Oakes M.D. Apr 12, 2020 15:01
[2020-04-12 16:00] VITALS: BP 132/53
--- NOTE | 2020-04-12 16:16 | Diagnostic Imaging Report ---
Indication: Cough Technique: One view of the chest Comparison: 04/08/2020 Findings: Interim development of bilateral infiltrates in a peribronchial vascular distribution, predominantly lower lobe. Normal heart size. Impression: Bilateral infiltrates, developing since 04/08/2020, likely on the basis of pneumonia.
--- NOTE | 2020-04-12 16:38 | Internal Med Progress Note ---
Subjective Date of Service: Apr 12, 2020 Physician Name Tariq Murphy Attending Physician Dewayne Mendoza MD Current Medications Medications (Trade) Dose Ordered Sig/Jere Route PRN Reason Start Time Stop Time Status Last Admin Dose Admin Acetaminophen (Tylenol) 650 mg Q4H PRN ORAL fever 04/08/20 19:00 05/08/20 18:59 04/12/20 00:27 Albuterol/ Ipratropium (Albuterol/ Ipratropium) 3 ml Q4H PRN HHN Shortness of Breath 04/08/20 19:00 04/13/20 18:59 Barium Sulfate (Varibar Honey) 250 ml NOW PRN MC RAD 04/12/20 13:15 04/15/20 13:04 Barium Sulfate (Varibar [place]) 240 ml NOW PRN MC RAD 04/12/20 13:15 04/15/20 13:04 Barium Sulfate (Varibar Pudding) 230 ml NOW PRN MC RAD 04/12/20 13:15 04/15/20 13:04 Barium Sulfate (Varibar Thin Liquid powder) 148 gm NOW PRN RAD 04/12/20 13:15 04/15/20 13:04 Cefepime HCl 2 gm/ Dextrose 110 ml @ 220 mls/hr Q12H IV 04/09/20 21:00 04/16/20 20:59 04/12/20 10:26 Chlorhexidine Gluconate (Geno-Hex 2%) 1 applic DAILY@2000 TOPIC 04/08/20 20:00 07/07/20 19:59 04/11/20 20:13 Dexamethasone (Decadron) 6 mg DAILY ORAL 04/12/20 15:15 04/21/20 09:01 04/12/20 16:16 Dextrose (Dextrose 50%) 25 ml Q30M PRN IV Hypoglycemia 04/09/20 07:45 07/08/20 07:44 04/11/20 16:12 Dextrose (Dextrose 50%) 50 ml Q30M PRN IV Hypoglycemia 04/09/20 07:45 07/08/20 07:44 Dextrose/ Electrolytes 1,000 ml @ 75 mls/hr [id number] IV 04/08/20 22:30 05/08/20 22:29 04/12/20 05:14 Insulin Aspart (NovoLOG) BEFORE MEALS AND HS SUBQ 04/09/20 11:30 07/08/20 11:29 04/10/20 12:08 Linezolid (Zyvox) 600 mg EVERY 12 HOURS ORAL 04/12/20 15:00 04/17/20 14:59 04/12/20 16:16 Metoprolol Tartrate (Lopressor) 5 mg Q1H PRN IVP spb more than 120 04/08/20 19:00 07/07/20 18:59 Ondansetron HCl (Zofran) 4 mg Q6H PRN IVP Nausea & Vomiting 04/08/20 19:00 05/08/20 18:59 Pantoprazole (Protonix) 40 mg EVERY 12 HOURS IVP 04/10/20 21:00 05/10/20 20:59 04/12/20 09:51 Polyethylene Glycol (Miralax) 17 gm BEDTIME ORAL 04/09/20 21:00 05/09/20 20:59 04/11/20 20:15 Polyethylene Glycol (Miralax) 17 gm DAILYPRN PRN ORAL Constipation 04/08/20 19:00 05/08/20 18:59 Potassium Phosphate 250 ml @ 62.5 mls/hr Q4H IVPB 04/12/20 10:30 04/12/20 18:29 04/12/20 14:40 Temazepam (Restoril) 15 mg HSPRN PRN ORAL Insomnia 04/08/20 19:00 04/15/20 18:59 Allergies: Coded Allergies: No Known Allergies (Unverified , 03/11/19) ROS Limited/Unobtainable: Yes Subjective 64 YO F with inoperable uterine cancer admitted with tachycardia. Now atrial fibrillation with rapid ventricular rate. Also COVID 19 positive. Cover for I nt Med-DR Mendoza. Step down unit Objective Last Vital Signs Date Time Temp Pulse Resp B/P (MAP) Pulse Ox O2 Delivery O2 Flow Rate FiO2 04/12/20 12:00 98.1 94 20 119/75 (90) 99 04/12/20 12:00 Nasal Cannula 2.0 04/12/20 07:00 28 Laboratory Tests Test 04/11/20 20:17 04/12/20 02:50 04/12/20 11:05 04/12/20 16:13 POC Whole Blood Glucose 77 MG/DL (74-106) 87 MG/DL (74-106) 89 MG/DL (74-106) White Blood Count 6.4 K/UL (4.8-10.8) Red Blood Count 3.03 M/UL (4.20-5.40) L Hemoglobin 8.7 G/DL (12.0-16.0) L Hematocrit 25.9 % (37.0-47.0) L Mean Corpuscular Volume 85 FL (80-99) Mean Corpuscular Hemoglobin 28.8 PG (27.0-31.0) Mean Corpuscular Hemoglobin Concent 33.7 G/DL (32.0-36.0) Red Cell Distribution Width 13.1 % (11.6-14.8) Platelet Count 196 K/UL (150-450) Mean Platelet Volume 6.0 FL (6.5-10.1) L Neutrophils (%) (Auto) 76.8 % (45.0-75.0) H Lymphocytes (%) (Auto) 12.3 % (20.0-45.0) L Monocytes (%) (Auto) 7.3 % (1.0-10.0) Eosinophils (%) (Auto) 1.2 % (0.0-3.0) Basophils (%) (Auto) 2.5 % (0.0-2.0) H Erythrocyte Sedimentation Rate 20 MM/HR (0-30) Sodium Level 139 MMOL/L (136-145) Potassium Level 3.5 MMOL/L (3.5-5.1) Chloride Level 106 MMOL/L (98-107) Carbon Dioxide Level 25 MMOL/L (21-32) Anion Gap 8 mmol/L (5-15) Blood Urea Nitrogen 4 mg/dL (7-18) L Creatinine 0.4 MG/DL (0.55-1.30) L Estimat Glomerular Filtration Rate > 60 mL/min (>60) Glucose Level 94 MG/DL (74-106) Calcium Level 7.6 MG/DL (8.5-10.1) L Phosphorus Level 2.0 MG/DL (2.5-4.9) L Magnesium Level 1.6 MG/DL (1.8-2.4) L Total Bilirubin 0.4 MG/DL (0.2-1.0) Aspartate Amino Transf (AST/SGOT) 40 U/L (15-37) H Alanine Aminotransferase (ALT/SGPT) 29 U/L (12-78) Alkaline Phosphatase 65 U/L (46-116) C-Reactive Protein, Quantitative 6.2 mg/dL (0.00-0.90) H Total Protein 4.5 G/DL (6.4-8.2) L Albumin 1.7 G/DL (3.4-5.0) L Globulin 2.8 g/dL Albumin/Globulin Ratio 0.6 (1.0-2.7) L Intake and Output 04/11/20 04/12/20 19:00 07:00 Intake Total 1250.0 ml 925 ml Output Total 2080 ml 1400 ml Balance -830.0 ml -475 ml Intake IV Total 1150.0 ml 825 ml Other 100 ml 100 ml Output Urine Total 2080 ml 1400 ml # Bowel Movements 4 4 Objective PHYSICAL EXAMINATION: GENERAL: The patient awake, responsive, however altered and confused. The patient appears to be paler and chronically-ill appearing. HEAD AND NECK: Pupils are equal and reactive to light. Extraocular movements are intact. Neck was supple. No JVD. LUNGS: Bilateral air entry. Decreased air in the bases. HEART: S1, S2. Tachycardic, irregular. No murmur or gallop was appreciated. ABDOMEN: Soft, nondistended. Tenderness on the lower abdominal area. Mildly obese. EXTREMITIES: No cyanosis, clubbing, or edema. GENITOURINARY: The patient noted to have Lowe catheter with dark red urine collection in a Lowe catheter. NEUROLOGIC: Cranial nerves II through XII grossly intact. The patient moving all extremities equally. Sensory is intact. Gait was not able to assess due to the patient's status. RECTAL: Refused and deferred. PSYCHIATRIC: Mood and affect, unable to obtain due to the patient's status. Assessment/Plan Assessment/Plan ASSESSMENT: 1. COVID-19 pneumonia. 2. Altered mental status, most likely secondary to toxic metabolic encephalopathy. 3. Atrial fibrillation with rapid ventricular rate. 4. Anemia most likely secondary to acute blood loss. 5. Sepsis secondary to urinary tract infection as well as pneumonia. 6. Vaginal bleeding. 7. UTI=VRE 8. History of diabetes type 2. 9. Inoperable endometrial adenocarcinoma, status post brachytherapy. 10. Hypertension. 11. History of lacunar infarction. PLAN: 1. Admit the patient to ICU. 2. Dr. Buitrago=Pulmonary/Critical Care 3. Dr. Wale uW = Cardiology. 4. antibiotic=vancomycin linezolid and cefepime. 5. Admit to [place] [id number] room. 6. Code status =Full Code. 7. DVT prophylaxis SCD. 8. S/P transfusion 2 units of packed RBC. 9. Continue Levophed as needed to support the blood pressure 10. ID=Tariq Márquez MD Apr 12, 2020 16:38
--- NOTE | 2020-04-12 17:03 | Nephrology Progress Note ---
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 History of hypertension Plan April 12: Electrolyte abnormalities noted and addressed. Continue per consultants Magnesium IV supplement as needed Potassium IV supplement as needed Phosphorus IV supplement as needed Monitor electrolytes Monitor hemoglobin hematocrit IV Protonix Adjust IV fluid Antibiotics per consultants Subjective ROS Limited/Unobtainable: No Constitutional: Reports: malaise, weakness Objective Objective Last 24 Hour Vital Signs Date Time Temp Pulse Resp B/P (MAP) Pulse Ox O2 Delivery O2 Flow Rate FiO2 04/12/20 16:00 Nasal Cannula 2.0 04/12/20 16:00 98.1 83 20 132/53 (79) 96 04/12/20 16:00 83 04/12/20 12:00 98.1 94 20 119/75 (90) 99 04/12/20 12:00 84 04/12/20 12:00 Nasal Cannula 2.0 04/12/20 08:00 Nasal Cannula 2.0 04/12/20 08:00 97.5 80 21 126/55 (78) 100 04/12/20 08:00 80 04/12/20 07:00 100 Nasal Cannula 2.0 28 04/12/20 04:00 Nasal Cannula 2.0 04/12/20 04:00 83 04/12/20 04:00 98.2 85 20 111/60 (77) 100 04/12/20 00:57 98.6 04/12/20 00:00 91 04/12/20 00:00 Nasal Cannula 2.0 04/11/20 20:39 100 Nasal Cannula 2.0 28 04/11/20 20:00 84 04/11/20 20:00 Nasal Cannula 2.0 04/11/20 20:00 97.9 85 20 115/56 (75) 98 04/11/20 18:03 2.0 Intake and Output 04/11/20 04/12/20 19:00 07:00 Intake Total 1250.0 ml 925 ml Output Total 2080 ml 1400 ml Balance -830.0 ml -475 ml Intake IV Total 1150.0 ml 825 ml Other 100 ml 100 ml Output Urine Total 2080 ml 1400 ml # Bowel Movements 4 4 Laboratory Tests 04/11/20 20:17: POC Whole Blood Glucose 77 04/12/20 02:50: White Blood Count 6.4, Red Blood Count 3.03L, Hemoglobin 8.7L, Hematocrit 25.9L, Mean Corpuscular Volume 85, Mean Corpuscular Hemoglobin 28.8, Mean Corpuscular Hemoglobin Concent 33.7, Red Cell Distribution Width 13.1, Platelet Count 196, Mean Platelet Volume 6.0L, Neutrophils (%) (Auto) 76.8H, Lymphocytes (%) (Auto) 12.3L, Monocytes (%) (Auto) 7.3, Eosinophils (%) (Auto) 1.2, Basophils (%) (Auto) 2.5H, Erythrocyte Sedimentation Rate 20, Sodium Level 139, Potassium Level 3.5, Chloride Level 106, Carbon Dioxide Level 25, Anion Gap 8, Blood Urea Nitrogen 4L, Creatinine 0.4L, Estimat Glomerular Filtration Rate > 60, Glucose Level 94, Calcium Level 7.6L, Phosphorus Level 2.0L, Magnesium Level 1.6L, Total Bilirubin 0.4, Aspartate Amino Transf (AST/SGOT) 40H, Alanine Aminotransferase (ALT/SGPT) 29, Alkaline Phosphatase 65, C-Reactive Protein, Quantitative 6.2H, Total Protein 4.5L, Albumin 1.7L, Globulin 2.8, Albumin/Globulin Ratio 0.6L 04/12/20 11:05: POC Whole Blood Glucose 87 04/12/20 16:13: POC Whole Blood Glucose 89 Height (Feet): 5 Height (Inches): 6.00 Weight (Pounds): 160 General Appearance: no apparent distress Cardiovascular: tachycardia Respiratory/Chest: decreased breath sounds Abdomen: distended Steven Edwards MD Apr 12, 2020 17:03
--- NOTE | 2020-04-12 19:15 | NUR ---
NURSE NOTES: Received report from VARUN Reyes. pt is awake and oriented x2. Pt is calm and no signs of pain noted. Pt has no signs of respiratory distress. Pt on Nc at 2L o2 sat- 94%. No coughing noted. Pt on mcmanus intact and infusing well. Bed in lowest position. Call light within reach. No fever noted at this time. Continue to plan of care.
--- NOTE | 2020-04-12 19:30 | NUR ---
NURSE HAND-OFF REPORT: Important Events on Shift:NO Patient Status: Diet: Pending Orders: Pending Results/Labs: Pending MD notification: Latest Vital Signs: Temperature 98.1 , Pulse 83 , B/P 132 /53 , Respiratory Rate 20 , O2 SAT 97 , Nasal Cannula, O2 Flow Rate 2.0 . Vital Sign Comment: STABLE EKG Rhythm: Sinus Rhythm Rhythm change?: N MD Notified?: - MD Response: Latest Ortega Fall Score: 45 Fall Risk: High Risk Safety Measures: Call light Within Reach, Bed Alarm Zone 2, Side Rails Side Rails x3, Bed position Low and Locked. Fall Precautions: Yellow Socks Yellow Gown Door Sign Patient Fall Education Report given to .
--- NOTE | 2020-04-12 19:45 | Consultation ---
DATE OF CONSULTATION: 04/12/2020 CONSULTING PHYSICIAN: Nima Park MD CHIEF COMPLAINT: GI bleeding. HISTORY OF PRESENT ILLNESS: Most of the history per chart. This 64-year-old [facility] patient was brought to the hospital with rapid heartbeat of 160s, most probably atrial fibrillation, and was admitted to ICU and was also diagnosed with COVID. Upon transfer from ICU to stepdown, the patient had evidence of rectal bleeding, so GI consult was requested for further evaluation. PAST MEDICAL HISTORY: Significant for: 1. History of hypertension. 2. Diabetes. 3. CVA. 4. UTI. 5. Colitis. 6. Endometrial cancer. ALLERGIES: The patient has no known allergies. MEDICATIONS: Please see medication reconciliation list. SOCIAL HISTORY: Unable to obtain. FAMILY HISTORY: Noncontributory. REVIEW OF SYSTEMS: Limited. PHYSICAL EXAMINATION: VITAL SIGNS: Temperature 97.5, pulse 68, respirations 20, blood pressure . HEENT: Normocephalic and atraumatic. Mild pale conjunctivae. NECK: Supple. No evidence of obvious lymphadenopathy. CARDIOVASCULAR: Irregularly irregular. Plus S1, S2. LUNGS: Decreased breath sounds bilaterally diffusely based on supine exam. ABDOMEN: Soft, nontender. No rebound. No guarding. No peritoneal sign. EXTREMITIES: No cyanosis. No clubbing. LABORATORY DATA: White count is 6.4, hemoglobin 8.7, hematocrit 25, and platelet count is 196,000. Chem-7, sodium is 139, potassium 3.5, BUN 4, creatinine 0.4. ASSESSMENT: This is a 64-year-old female with numerous medical problems as dictated above, consulted for rectal bleeding. At this time, there is no significant bleeding. According to the nurses, there was one episode upon transfer from ICU and since then, the patient had another bowel movement; no evidence of bleeding. Differential diagnosis at this time would be rectal bleed, diverticular bleed, and hemorrhoidal bleed. PLAN: Given the current medical condition, I am not going to schedule colonoscopy yet. We are going to monitor hemoglobin and hematocrit; monitor on daily basis to see if the patient has repeat GI bleeding. Avoid anticoagulation. Continue Protonix. Order swallow evaluation to see what the patient can swallow to start diet. We will keep the option of colonoscopy if the patient has recurrent bleeding. I want to thank Dr. Buitrago for this kind referral. Nima Park M.D. DR: RIANA JOB#: [id number] CC: Marina Buitrago M.D.; Fax#: [phone]
[2020-04-12 20:00] VITALS: BP 119/69
[2020-04-12] MEDS: Dyna-Hex 2% Top Sol 2oz TOPIC SCH (20:43)
[2020-04-12] MEDS: Miralax 17gm pkt ORAL SCH (20:44)
[2020-04-13] VITALS: BP 135/55
[2020-04-13] MEDS: D5 1/2NS w/KCl 20mEq 1,000 ML IV SCH ×2 (01:48→18:17)
--- NOTE | 2020-04-13 02:30 | NUR ---
NURSE NOTES: Changed pt, repositioned. bath given. Noted hematuria. Noted dark stool . No signs of any distress. pt is coughing with thick sputum .no signs of respiratory distress. o2 sat -97% on 2L NC. Continue to plan of care.
[2020-04-13 04:00] VITALS: BP 109/86
[2020-04-13] MEDS: NovoLOG Insulin Flexpen SUBQ SCH ×4 (05:56→21:00)
[2020-04-13 06:03] LABS: HEMATOCRIT 30.5 % (37.0-47.0); MEAN CORPUSCULAR VOLUME 86 FL (80-99); PLATELET COUNT 242 K/UL (150-450); RED BLOOD COUNT 3.55 M/UL (4.20-5.40); RED CELL DISTRIBUTION WIDTH 13.1 % (11.6-14.8); WHITE BLOOD COUNT 6.9 K/UL (4.8-10.8)
[2020-04-13 06:43] LABS: ALANINE AMINOTRANSFERASE 34 U/L (12-78); ALBUMIN 2.2 G/DL (3.4-5.0); ALBUMIN/GLOBULIN RATIO 0.7 (1.0-2.7); ALKALINE PHOSPHATASE 89 U/L (46-116); ANION GAP 8 mmol/L (5-15); ASPARTATE AMINO TRANSFERASE 38 U/L (15-37); BILIRUBIN,TOTAL 0.4 MG/DL (0.2-1.0); BLOOD UREA NITROGEN 4 mg/dL (7-18); CALCIUM 8.2 MG/DL (8.5-10.1); CARBON DIOXIDE 27 MMOL/L (21-32); CHLORIDE 101 MMOL/L (98-107); CREATININE 0.5 MG/DL (0.55-1.30); FERRITIN 961 NG/ML (8-388); LACTATE DEHYDROGENASE 341 U/L (81-234); POTASSIUM 4.3 MMOL/L (3.5-5.1); SODIUM 136 MMOL/L (136-145)
[2020-04-13 06:45] LABS: PHOSPHORUS 3.3 MG/DL (2.5-4.9)
--- NOTE | 2020-04-13 07:30 | NUR ---
NURSE HAND-OFF REPORT: Important Events on Shift Pt on NPO, On 2L via NC sat-97-100%, pt is with episodes of confusion Patient Status: Stable Diet: NPO Pending Orders: None Pending Results/Labs: None Pending MD notification : None Latest Vital Signs: Temperature 97.5 , Pulse 67 , B/P 109 /86 , Respiratory Rate 24 , O2 SAT 100 , Nasal Cannula, O2 Flow Rate 2.0 . Vital Sign Comment: WNL EKG Rhythm: Sinus Rhythm Rhythm change?: N MD Notified?: - MD Response: Latest Ortega Fall Score: 55 Fall Risk: High Risk Safety Measures: Call light Within Reach, Bed Alarm Zone 2, Side Rails Side Rails x3, Bed position Low and Locked. Fall Precautions: Yellow Socks Yellow Gown Door Sign Patient Fall Education Report given to [Angus Felix].
[2020-04-13 08:00] VITALS: BP 118/73
--- NOTE | 2020-04-13 08:00 | NUR ---
NURSE NOTES: Recieved report from VARUN Wood. Pt is resting in bed, awake and oriented to name, without acute distress. Pt AMS but able to communicate via facial expression and body movement. NC @ 4 L O2, SR w/ HR 78, BP 118/73, O2 sat 100%, T 97.2. Urinary catheter is patent and intact and draining yellowish urine. Iv in L AC and PICC line R Femoral TLC were patent and intact. Skin issues were noted. Pt's bed in lowest position, call light is within reach, bed alarms on, and aspiration and fall precautions were reinforced. Will closely monitor the patient. Will continue with the plan of care
--- NOTE | 2020-04-13 08:59 | Nephrology Progress Note ---
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 History of hypertension Plan April 13: Electrolytes within normal limit. Renal parameters within normal limit. Continue per consultants. April 12: Electrolyte abnormalities noted and addressed. Continue per consultants Magnesium IV supplement as needed Potassium IV supplement as needed Phosphorus IV supplement as needed Monitor electrolytes Monitor hemoglobin hematocrit IV Protonix Adjust IV fluid Antibiotics per consultants Subjective ROS Limited/Unobtainable: No Constitutional: Reports: malaise, weakness Objective Objective Last 24 Hour Vital Signs Date Time Temp Pulse Resp B/P (MAP) Pulse Ox O2 Delivery O2 Flow Rate FiO2 04/13/20 04:00 72 04/13/20 04:00 97.5 67 24 109/86 (94) 100 04/13/20 04:00 Nasal Cannula 2.0 04/13/20 00:15 Nasal Cannula 2.0 04/13/20 00:00 97.9 92 20 135/55 (81) 97 04/13/20 00:00 83 04/12/20 21:00 84 04/12/20 20:00 Nasal Cannula 2.0 04/12/20 20:00 97.9 91 22 119/69 (86) 97 04/12/20 19:03 97 Nasal Cannula 2.0 28 04/12/20 18:03 2.0 04/12/20 16:00 Nasal Cannula 2.0 04/12/20 16:00 98.1 83 20 132/53 (79) 96 04/12/20 16:00 83 04/12/20 12:00 98.1 94 20 119/75 (90) 99 04/12/20 12:00 84 04/12/20 12:00 Nasal Cannula 2.0 Intake and Output 04/12/20 04/13/20 19:00 07:00 Intake Total 225 ml 1020 ml Output Total 2200 ml 1200 ml Balance -1975 ml -180 ml Intake IV Total 75 ml 970 ml Other 150 ml 50 ml Output Urine Total 2200 ml 1200 ml # Bowel Movements 4 2 Laboratory Tests 04/12/20 11:05: POC Whole Blood Glucose 87 04/12/20 16:13: POC Whole Blood Glucose 89 04/12/20 20:53: POC Whole Blood Glucose 106 04/13/20 03:47: White Blood Count 6.9, Red Blood Count 3.55L, Hemoglobin 10.0L, Hematocrit 30.5L , Mean Corpuscular Volume 86, Mean Corpuscular Hemoglobin 28.1, Mean Corpuscular Hemoglobin Concent 32.6, Red Cell Distribution Width 13.1, Platelet Count 242, Mean Platelet Volume 6.0L, Neutrophils (%) (Auto) , Lymphocytes (%) (Auto) , Monocytes (%) (Auto) , Eosinophils (%) (Auto) , Basophils (%) (Auto) , Differential Total Cells Counted 100, Neutrophils % (Manual) 91H, Lymphocytes % (Manual) 5L, Monocytes % (Manual) 4, Eosinophils % (Manual) 0, Basophils % (Manual) 0, Band Neutrophils 0, Platelet Estimate Adequate, Platelet Morphology Normal, Fibrinogen 347, D-Dimer [Pending], Sodium Level 136, Potassium Level 4.3, Chloride Level 101, Carbon Dioxide Level 27, Anion Gap 8, Blood Urea Nitrogen 4L, Creatinine 0.5L, Estimat Glomerular Filtration Rate > 60, Glucose Level 129H, Calcium Level 8.2L, Phosphorus Level 3.3, Magnesium Level 2.2, Ferritin 961H, Total Bilirubin 0.4, Aspartate Amino Transf (AST/SGOT) 38H, Alanine Aminotransferase (ALT/SGPT) 34, Alkaline Phosphatase 89, Lactate Dehydrogenase 341H, C-Reactive Protein, Quantitative 7.6H, Total Protein 5.2L, Albumin 2.2L, Globulin 3.0, Albumin/Globulin Ratio 0.7L 04/13/20 05:21: POC Whole Blood Glucose 121H Height (Feet): 5 Height (Inches): 6.00 Weight (Pounds): 160 General Appearance: no apparent distress Cardiovascular: other - Variable rate Respiratory/Chest: decreased breath sounds Abdomen: distended Steven Edwards MD Apr 13, 2020 08:59
--- NOTE | 2020-04-13 09:02 | Pulmonology Progress Note ---
Subjective ROS Limited/Unobtainable: Yes Constitutional: Reports: no symptoms HEENT: Repors: no symptoms Allergies: Coded Allergies: No Known Allergies (Unverified , 03/11/19) Objective Last 24 Hour Vital Signs Date Time Temp Pulse Resp B/P (MAP) Pulse Ox O2 Delivery O2 Flow Rate FiO2 04/13/20 04:00 72 04/13/20 04:00 97.5 67 24 109/86 (94) 100 04/13/20 04:00 Nasal Cannula 2.0 04/13/20 00:15 Nasal Cannula 2.0 04/13/20 00:00 97.9 92 20 135/55 (81) 97 04/13/20 00:00 83 04/12/20 21:00 84 04/12/20 20:00 Nasal Cannula 2.0 04/12/20 20:00 97.9 91 22 119/69 (86) 97 04/12/20 19:03 97 Nasal Cannula 2.0 28 04/12/20 18:03 2.0 04/12/20 16:00 Nasal Cannula 2.0 04/12/20 16:00 98.1 83 20 132/53 (79) 96 04/12/20 16:00 83 04/12/20 12:00 98.1 94 20 119/75 (90) 99 04/12/20 12:00 84 04/12/20 12:00 Nasal Cannula 2.0 Intake and Output 04/12/20 04/13/20 19:00 07:00 Intake Total 225 ml 1020 ml Output Total 2200 ml 1200 ml Balance -1975 ml -180 ml Intake IV Total 75 ml 970 ml Other 150 ml 50 ml Output Urine Total 2200 ml 1200 ml # Bowel Movements 4 2 General Appearance: WD/WN HEENT: normocephalic, atraumatic Respiratory: chest wall non-tender, lungs clear Breasts: no masses Cardiovascular: normal peripheral pulses Abdomen: normal bowel sounds, soft, non tender, no organomegaly Laboratory Tests 04/12/20 11:05: POC Whole Blood Glucose 87 04/12/20 16:13: POC Whole Blood Glucose 89 04/12/20 20:53: POC Whole Blood Glucose 106 04/13/20 03:47: White Blood Count 6.9, Red Blood Count 3.55L, Hemoglobin 10.0L, Hematocrit 30.5L , Mean Corpuscular Volume 86, Mean Corpuscular Hemoglobin 28.1, Mean Corpuscular Hemoglobin Concent 32.6, Red Cell Distribution Width 13.1, Platelet Count 242, Mean Platelet Volume 6.0L, Neutrophils (%) (Auto) , Lymphocytes (%) (Auto) , Monocytes (%) (Auto) , Eosinophils (%) (Auto) , Basophils (%) (Auto) , Differential Total Cells Counted 100, Neutrophils % (Manual) 91H, Lymphocytes % (Manual) 5L, Monocytes % (Manual) 4, Eosinophils % (Manual) 0, Basophils % (Manual) 0, Band Neutrophils 0, Platelet Estimate Adequate, Platelet Morphology Normal, Fibrinogen 347, D-Dimer [Pending], Sodium Level 136, Potassium Level 4.3, Chloride Level 101, Carbon Dioxide Level 27, Anion Gap 8, Blood Urea Nitrogen 4L, Creatinine 0.5L, Estimat Glomerular Filtration Rate > 60, Glucose Level 129H, Calcium Level 8.2L, Phosphorus Level 3.3, Magnesium Level 2.2, Ferritin 961H, Total Bilirubin 0.4, Aspartate Amino Transf (AST/SGOT) 38H, Alanine Aminotransferase (ALT/SGPT) 34, Alkaline Phosphatase 89, Lactate Dehydrogenase 341H, C-Reactive Protein, Quantitative 7.6H, Total Protein 5.2L, Albumin 2.2L, Globulin 3.0, Albumin/Globulin Ratio 0.7L 04/13/20 05:21: POC Whole Blood Glucose 121H Current Medications Medications (Trade) Dose Ordered Sig/Jere Route PRN Reason Start Time Stop Time Status Last Admin Dose Admin Acetaminophen (Tylenol) 650 mg Q4H PRN ORAL fever 04/08/20 19:00 05/08/20 18:59 04/12/20 00:27 Albuterol/ Ipratropium (Albuterol/ Ipratropium) 3 ml Q4H PRN HHN Shortness of Breath 04/08/20 19:00 04/13/20 18:59 Barium Sulfate (Varibar Honey) 250 ml NOW PRN MC RAD 04/12/20 13:15 04/15/20 13:04 Barium Sulfate (Varibar Ethete) 240 ml NOW PRN MC RAD 04/12/20 13:15 04/15/20 13:04 Barium Sulfate (Varibar Pudding) 230 ml NOW PRN MC RAD 04/12/20 13:15 04/15/20 13:04 Barium Sulfate (Varibar Thin Liquid powder) 148 gm NOW PRN RAD 04/12/20 13:15 04/15/20 13:04 Cefepime HCl 2 gm/ Dextrose 110 ml @ 220 mls/hr Q12H IV 04/09/20 21:00 04/16/20 20:59 04/12/20 20:43 Chlorhexidine Gluconate (Geno-Hex 2%) 1 applic DAILY@2000 TOPIC 04/08/20 20:00 07/07/20 19:59 04/12/20 20:43 Dexamethasone (Decadron) 6 mg DAILY ORAL 04/12/20 15:15 04/21/20 09:01 04/12/20 16:16 Dextrose (Dextrose 50%) 25 ml Q30M PRN IV Hypoglycemia 04/09/20 07:45 07/08/20 07:44 04/11/20 16:12 Dextrose (Dextrose 50%) 50 ml Q30M PRN IV Hypoglycemia 04/09/20 07:45 07/08/20 07:44 Dextrose/ Electrolytes 1,000 ml @ 75 mls/hr [id number] IV 04/08/20 22:30 05/08/20 22:29 04/13/20 01:48 Insulin Aspart (NovoLOG) BEFORE MEALS AND HS SUBQ 04/09/20 11:30 07/08/20 11:29 04/10/20 12:08 Linezolid (Zyvox) 600 mg EVERY 12 HOURS ORAL 04/12/20 15:00 04/17/20 14:59 04/12/20 20:44 Metoprolol Tartrate (Lopressor) 5 mg Q1H PRN IVP spb more than 120 04/08/20 19:00 07/07/20 18:59 Ondansetron HCl (Zofran) 4 mg Q6H PRN IVP Nausea & Vomiting 04/08/20 19:00 05/08/20 18:59 Pantoprazole (Protonix) 40 mg EVERY 12 HOURS IVP 04/10/20 21:00 05/10/20 20:59 04/12/20 20:43 Polyethylene Glycol (Miralax) 17 gm BEDTIME ORAL 04/09/20 21:00 05/09/20 20:59 04/12/20 20:44 Polyethylene Glycol (Miralax) 17 gm DAILYPRN PRN ORAL Constipation 04/08/20 19:00 05/08/20 18:59 Temazepam (Restoril) 15 mg HSPRN PRN ORAL Insomnia 04/08/20 19:00 04/15/20 18:59 Assessment/Plan Problems: (1) Hemorrhagic shock (2) Sepsis (3) Bacteremia (4) History of CVA (cerebrovascular accident) (5) Rectal bleeding (6) Hematuria Assessment/Plan h/h stable, received 2 units of prbc f/u ID recommendations on linezolid and cefepime f/u new blood cultures check electrolytes GI note appreciated continue Decadron dvt prophylaxis. Marina Buitrago MD Apr 13, 2020 09:02
--- NOTE | 2020-04-13 09:50 | General Progress Note ---
Subjective ROS Limited/Unobtainable: No Allergies: Coded Allergies: No Known Allergies (Unverified , 03/11/19) Objective Last 24 Hour Vital Signs Date Time Temp Pulse Resp B/P (MAP) Pulse Ox O2 Delivery O2 Flow Rate FiO2 04/13/20 04:00 72 04/13/20 04:00 97.5 67 24 109/86 (94) 100 04/13/20 04:00 Nasal Cannula 2.0 04/13/20 00:15 Nasal Cannula 2.0 04/13/20 00:00 97.9 92 20 135/55 (81) 97 04/13/20 00:00 83 04/12/20 21:00 84 04/12/20 20:00 Nasal Cannula 2.0 04/12/20 20:00 97.9 91 22 119/69 (86) 97 04/12/20 19:03 97 Nasal Cannula 2.0 28 04/12/20 18:03 2.0 04/12/20 16:00 Nasal Cannula 2.0 04/12/20 16:00 98.1 83 20 132/53 (79) 96 04/12/20 16:00 83 04/12/20 12:00 98.1 94 20 119/75 (90) 99 04/12/20 12:00 84 04/12/20 12:00 Nasal Cannula 2.0 Intake and Output 04/12/20 04/13/20 19:00 07:00 Intake Total 225 ml 1020 ml Output Total 2200 ml 1200 ml Balance -1975 ml -180 ml Intake IV Total 75 ml 970 ml Other 150 ml 50 ml Output Urine Total 2200 ml 1200 ml # Bowel Movements 4 2 Laboratory Tests 04/12/20 11:05: POC Whole Blood Glucose 87 04/12/20 16:13: POC Whole Blood Glucose 89 04/12/20 20:53: POC Whole Blood Glucose 106 04/13/20 03:47: White Blood Count 6.9, Red Blood Count 3.55L, Hemoglobin 10.0L, Hematocrit 30.5L , Mean Corpuscular Volume 86, Mean Corpuscular Hemoglobin 28.1, Mean Corpuscular Hemoglobin Concent 32.6, Red Cell Distribution Width 13.1, Platelet Count 242, Mean Platelet Volume 6.0L, Neutrophils (%) (Auto) , Lymphocytes (%) (Auto) , Monocytes (%) (Auto) , Eosinophils (%) (Auto) , Basophils (%) (Auto) , Differential Total Cells Counted 100, Neutrophils % (Manual) 91H, Lymphocytes % (Manual) 5L, Monocytes % (Manual) 4, Eosinophils % (Manual) 0, Basophils % (Manual) 0, Band Neutrophils 0, Platelet Estimate Adequate, Platelet Morphology Normal, Fibrinogen 347, D-Dimer 2.16H, Sodium Level 136, Potassium Level 4.3, Chloride Level 101, Carbon Dioxide Level 27, Anion Gap 8, Blood Urea Nitrogen 4L , Creatinine 0.5L, Estimat Glomerular Filtration Rate > 60, Glucose Level 129H, Calcium Level 8.2L, Phosphorus Level 3.3, Magnesium Level 2.2, Ferritin 961H, Total Bilirubin 0.4, Aspartate Amino Transf (AST/SGOT) 38H, Alanine Aminotransferase (ALT/SGPT) 34, Alkaline Phosphatase 89, Lactate Dehydrogenase 341H, C-Reactive Protein, Quantitative 7.6H, Total Protein 5.2L, Albumin 2.2L, Globulin 3.0, Albumin/Globulin Ratio 0.7L 04/13/20 05:21: POC Whole Blood Glucose 121H Height (Feet): 5 Height (Inches): 6.00 Weight (Pounds): 160 General Appearance: lethargic EENT: normal ENT inspection Neck: supple Cardiovascular: normal rate Respiratory/Chest: decreased breath sounds Abdomen: normal bowel sounds, non tender, soft Extremities: non-tender Assessment/Plan Status: stable, unchanged Assessment/Plan: 1. History of hypertension. 2. Diabetes. 3. CVA. 4. UTI. 5. Colitis. 6. Endometrial cancer. hgb 10 no recurrent gib pending swallow Nima Edwards MD Apr 13, 2020 09:50
[2020-04-13] MEDS: Pantoprazole Inj IVP SCH ×2 (09:51→21:11)
[2020-04-13] MEDS: Cefepime HCl 2 GM in D5W 110 ML IV SCH ×2 (09:52→21:11)
--- NOTE | 2020-04-13 11:38 | NUR ---
Speech Pathology Note (Dysphagia Evaluation) Indication of Evaluation: Start PO diet, to assess aspiration risk Indication of Hospitalization: COVID 19, tachycardia, vaginal bleeding, anemia, hypovolemia, Findings: Pt was seen at her bedside. She was oriented to her self. Her voice and cough were noted to be significantly weak. Her insights are reduced with slow responsiveness to questions. Addition to her low level of alertness, the bilateral UE edema and weakness resulted in inability to self drink/feed. I fed her drinks (thin liquid and apple sauce). Once she accepted the bolus, she tolerated pureed and thin liquid well without s.s of aspiration. Interpretation: 1. Aspiration risk due to low level of alertness and inability to self feed, 2. Weak cough and voice with high risk of aspiration pneumonia Recommendation: 1.2. Pureed and thin liquid with aspiration precaution -Speech to follow up to monitor the status, and provide the recommendation accordingly Harsh Suazo
[2020-04-13 12:00] VITALS: BP 114/73
[2020-04-13] MEDS ORDERED: NS 275ml ONE ×3 (12:56→22:29)
[2020-04-13] MEDS ORDERED: NS Irrig 1000ml ONE (13:29)
--- NOTE | 2020-04-13 15:14 | NUR ---
CASE MANAGEMENT: REVIEW SI: COVID-19 . PNA . RECTAL BLEEDING . HEMATURIA T 97.3 HR 90 RR 20 BP 135/55 SAT 97% NC/2L H/H 10.0/30.5 BUN 4 CR 0.5 GLUCOSE 120 ABG: PH 7.417 PCO2 38.9 PO2 42.7 HCO3 24.5 O2 SAT 76.7 IS: ZYVOX PO Q12HR K PHOS IVF Q4HR PROTONIX IV Q12HR CEFEPIME IV Q12HR D5 1/2 NS w/KCl 20MEQ Q24HR PENDING SWALLOW EVAL STEP DOWN UNIT STATUS DCP: PATIENT IS FROM [facility]
--- NOTE | 2020-04-13 15:49 | Surgery Progress Note ---
Surgery Progress Note Subjective Symptoms: improved, tolerating diet, passing flatus Objective Last 24 Hour Vital Signs Date Time Temp Pulse Resp B/P (MAP) Pulse Ox O2 Delivery O2 Flow Rate FiO2 04/13/20 12:00 Nasal Cannula 4.0 04/13/20 12:00 97.3 90 20 114/73 (87) 98 90 04/13/20 12:00 80 04/13/20 08:00 Nasal Cannula 2.0 04/13/20 08:00 97.2 78 20 118/73 (88) 100 78 04/13/20 08:00 73 04/13/20 07:20 95 Nasal Cannula 4.0 36 04/13/20 04:00 72 04/13/20 04:00 97.5 67 24 109/86 (94) 100 04/13/20 04:00 Nasal Cannula 2.0 04/13/20 00:15 Nasal Cannula 2.0 04/13/20 00:00 97.9 92 20 135/55 (81) 97 04/13/20 00:00 83 04/12/20 21:00 84 04/12/20 20:00 Nasal Cannula 2.0 04/12/20 20:00 97.9 91 22 119/69 (86) 97 04/12/20 19:03 97 Nasal Cannula 2.0 28 04/12/20 18:03 2.0 04/12/20 16:00 Nasal Cannula 2.0 04/12/20 16:00 98.1 83 20 132/53 (79) 96 04/12/20 16:00 83 I&O Intake and Output 04/12/20 04/13/20 19:00 07:00 Intake Total 225 ml 1020 ml Output Total 2200 ml 1200 ml Balance -1975 ml -180 ml Intake IV Total 75 ml 970 ml Other 150 ml 50 ml Output Urine Total 2200 ml 1200 ml # Bowel Movements 4 2 Dressing: saturated Cardiovascular: RSR Respiratory: decreased breath sounds Abdomen: soft, non-tender, present bowel sounds Extremities: no tenderness, no cyanosis Laboratory Tests Test 04/12/20 16:13 04/12/20 20:53 04/13/20 03:47 04/13/20 05:21 POC Whole Blood Glucose 89 MG/DL (74-106) 106 MG/DL (74-106) 121 MG/DL (74-106) H White Blood Count 6.9 K/UL (4.8-10.8) Red Blood Count 3.55 M/UL (4.20-5.40) L Hemoglobin 10.0 G/DL (12.0-16.0) L Hematocrit 30.5 % (37.0-47.0) L Mean Corpuscular Volume 86 FL (80-99) Mean Corpuscular Hemoglobin 28.1 PG (27.0-31.0) Mean Corpuscular Hemoglobin Concent 32.6 G/DL (32.0-36.0) Red Cell Distribution Width 13.1 % (11.6-14.8) Platelet Count 242 K/UL (150-450) Mean Platelet Volume 6.0 FL (6.5-10.1) L Neutrophils (%) (Auto) % (45.0-75.0) Lymphocytes (%) (Auto) % (20.0-45.0) Monocytes (%) (Auto) % (1.0-10.0) Eosinophils (%) (Auto) % (0.0-3.0) Basophils (%) (Auto) % (0.0-2.0) Differential Total Cells Counted 100 Neutrophils % (Manual) 91 % (45-75) H Lymphocytes % (Manual) 5 % (20-45) L Monocytes % (Manual) 4 % (1-10) Eosinophils % (Manual) 0 % (0-3) Basophils % (Manual) 0 % (0-2) Band Neutrophils 0 % (0-8) Platelet Estimate Adequate Platelet Morphology Normal Fibrinogen 347 mg/dL (200-400) D-Dimer 2.16 mg/L FEU (0.00-0.49) H Sodium Level 136 MMOL/L (136-145) Potassium Level 4.3 MMOL/L (3.5-5.1) Chloride Level 101 MMOL/L (98-107) Carbon Dioxide Level 27 MMOL/L (21-32) Anion Gap 8 mmol/L (5-15) Blood Urea Nitrogen 4 mg/dL (7-18) L Creatinine 0.5 MG/DL (0.55-1.30) L Estimat Glomerular Filtration Rate > 60 mL/min (>60) Glucose Level 129 MG/DL (74-106) H Calcium Level 8.2 MG/DL (8.5-10.1) L Phosphorus Level 3.3 MG/DL (2.5-4.9) Magnesium Level 2.2 MG/DL (1.8-2.4) Ferritin 961 NG/ML (8-388) H Total Bilirubin 0.4 MG/DL (0.2-1.0) Aspartate Amino Transf (AST/SGOT) 38 U/L (15-37) H Alanine Aminotransferase (ALT/SGPT) 34 U/L (12-78) Alkaline Phosphatase 89 U/L (46-116) Lactate Dehydrogenase 341 U/L (81-234) H C-Reactive Protein, Quantitative 7.6 mg/dL (0.00-0.90) H Total Protein 5.2 G/DL (6.4-8.2) L Albumin 2.2 G/DL (3.4-5.0) L Globulin 3.0 g/dL Albumin/Globulin Ratio 0.7 (1.0-2.7) L Test 04/13/20 10:10 04/13/20 10:49 POC Whole Blood Glucose 120 MG/DL (74-106) H Arterial Blood pH 7.417 (7.350-7.450) Arterial Blood Partial Pressure CO2 38.9 mmHg (35.0-45.0) Arterial Blood Partial Pressure O2 42.7 mmHg (75.0-100.0) Arterial Blood HCO3 24.5 mmol/L (22.0-26.0) Arterial Blood Oxygen Saturation 76.7 % (95-100) *L Arterial Blood Base Excess 0.1 (-2-2) Eulalio Test Positive Plan Problems: (1) Hematuria (2) Rectal bleeding Assessment & Plan: [age]-year-old female identified to have rectal bleeding on admission. GI aware surgery aware no active bleeding at this time hemoglobin noted. Transfuse PRBC as needed. Pending scope consideration. 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 apply therahoney to areas of slough. apply mositure barrier paste on the periwound. cover with optifoam dressing. change Q3D and PRN. Apply cavilon on both heels& malleoli. Cover each site with optifoam dressing. Change Q7D and PRN. Elian Ren Apr 13, 2020 15:49
[2020-04-13 16:00] VITALS: BP 107/48
--- NOTE | 2020-04-13 18:40 | Internal Med Progress Note ---
Subjective Date of Service: Apr 13, 2020 Physician Name Tariq Murphy Attending Physician Dewayne Mendoza MD Current Medications Medications (Trade) Dose Ordered Sig/Jere Route PRN Reason Start Time Stop Time Status Last Admin Dose Admin Acetaminophen (Tylenol) 650 mg Q4H PRN ORAL fever 04/08/20 19:00 05/08/20 18:59 04/12/20 00:27 Albuterol/ Ipratropium (Albuterol/ Ipratropium) 3 ml Q4H PRN HHN Shortness of Breath 04/08/20 19:00 04/13/20 18:59 Barium Sulfate (Varibar Honey) 250 ml NOW PRN MC RAD 04/12/20 13:15 04/15/20 13:04 Barium Sulfate (Varibar Roebling) 240 ml NOW PRN MC RAD 04/12/20 13:15 04/15/20 13:04 Barium Sulfate (Varibar Pudding) 230 ml NOW PRN MC RAD 04/12/20 13:15 04/15/20 13:04 Barium Sulfate (Varibar Thin Liquid powder) 148 gm NOW PRN RAD 04/12/20 13:15 04/15/20 13:04 Cefepime HCl 2 gm/ Dextrose 110 ml @ 220 mls/hr Q12H IV 04/09/20 21:00 04/16/20 20:59 04/13/20 09:52 Chlorhexidine Gluconate (Geno-Hex 2%) 1 applic DAILY@2000 TOPIC 04/08/20 20:00 07/07/20 19:59 04/12/20 20:43 Dexamethasone (Decadron) 6 mg DAILY ORAL 04/12/20 15:15 04/21/20 09:01 04/13/20 09:51 Dextrose (Dextrose 50%) 25 ml Q30M PRN IV Hypoglycemia 04/09/20 07:45 07/08/20 07:44 04/11/20 16:12 Dextrose (Dextrose 50%) 50 ml Q30M PRN IV Hypoglycemia 04/09/20 07:45 07/08/20 07:44 Dextrose/ Electrolytes 1,000 ml @ 30 mls/hr Q24H IV 04/08/20 22:30 05/08/20 22:29 04/13/20 18:17 Insulin Aspart (NovoLOG) BEFORE MEALS AND HS SUBQ 04/09/20 11:30 12/18/20 11:29 04/10/20 12:08 Linezolid (Zyvox) 600 mg EVERY 12 HOURS ORAL 04/12/20 15:00 04/17/20 14:59 04/13/20 09:52 Metoprolol Tartrate (Lopressor) 5 mg Q1H PRN IVP spb more than 120 04/08/20 19:00 07/07/20 18:59 Ondansetron HCl (Zofran) 4 mg Q6H PRN IVP Nausea & Vomiting 04/08/20 19:00 05/08/20 18:59 Pantoprazole (Protonix) 40 mg EVERY 12 HOURS IVP 04/10/20 21:00 05/10/20 20:59 04/13/20 09:51 Polyethylene Glycol (Miralax) 17 gm BEDTIME ORAL 04/09/20 21:00 05/09/20 20:59 04/12/20 20:44 Polyethylene Glycol (Miralax) 17 gm DAILYPRN PRN ORAL Constipation 04/08/20 19:00 05/08/20 18:59 Temazepam (Restoril) 15 mg HSPRN PRN ORAL Insomnia 04/08/20 19:00 04/15/20 18:59 Allergies: Coded Allergies: No Known Allergies (Unverified , 03/11/19) ROS Limited/Unobtainable: No Constitutional: Reports: no symptoms HEENT: Reports: no symptoms Cardiovascular: Reports: no symptoms Respiratory: Reports: shortness of breath Gastrointestinal/Abdominal: Reports: no symptoms Genitourinary: Reports: no symptoms Neurologic/Psychiatric: Reports: no symptoms Subjective 64 YO F with inoperable uterine cancer admitted with tachycardia. Now atrial fibrillation with rapid ventricular rate. Also COVID 19 positive. Cover for Int Jerome-DR Mendoza. Step down unit Objective Last Vital Signs Date Time Temp Pulse Resp B/P (MAP) Pulse Ox O2 Delivery O2 Flow Rate FiO2 04/13/20 18:00 4.0 04/13/20 16:00 71 04/13/20 16:00 Nasal Cannula 04/13/20 16:00 97.3 20 107/48 (67) 100 04/13/20 07:20 36 Laboratory Tests Test 04/12/20 20:53 04/13/20 03:47 04/13/20 05:21 04/13/20 10:10 POC Whole Blood Glucose 106 MG/DL (74-106) 121 MG/DL (74-106) H 120 MG/DL (74-106) H White Blood Count 6.9 K/UL (4.8-10.8) Red Blood Count 3.55 M/UL (4.20-5.40) L Hemoglobin 10.0 G/DL (12.0-16.0) L Hematocrit 30.5 % (37.0-47.0) L Mean Corpuscular Volume 86 FL (80-99) Mean Corpuscular Hemoglobin 28.1 PG (27.0-31.0) Mean Corpuscular Hemoglobin Concent 32.6 G/DL (32.0-36.0) Red Cell Distribution Width 13.1 % (11.6-14.8) Platelet Count 242 K/UL (150-450) Mean Platelet Volume 6.0 FL (6.5-10.1) L Neutrophils (%) (Auto) % (45.0-75.0) Lymphocytes (%) (Auto) % (20.0-45.0) Monocytes (%) (Auto) % (1.0-10.0) Eosinophils (%) (Auto) % (0.0-3.0) Basophils (%) (Auto) % (0.0-2.0) Differential Total Cells Counted 100 Neutrophils % (Manual) 91 % (45-75) H Lymphocytes % (Manual) 5 % (20-45) L Monocytes % (Manual) 4 % (1-10) Eosinophils % (Manual) 0 % (0-3) Basophils % (Manual) 0 % (0-2) Band Neutrophils 0 % (0-8) Platelet Estimate Adequate Platelet Morphology Normal Fibrinogen 347 mg/dL (200-400) D-Dimer 2.16 mg/L FEU (0.00-0.49) H Sodium Level 136 MMOL/L (136-145) Potassium Level 4.3 MMOL/L (3.5-5.1) Chloride Level 101 MMOL/L (98-107) Carbon Dioxide Level 27 MMOL/L (21-32) Anion Gap 8 mmol/L (5-15) Blood Urea Nitrogen 4 mg/dL (7-18) L Creatinine 0.5 MG/DL (0.55-1.30) L Estimat Glomerular Filtration Rate > 60 mL/min (>60) Glucose Level 129 MG/DL (74-106) H Calcium Level 8.2 MG/DL (8.5-10.1) L Phosphorus Level 3.3 MG/DL (2.5-4.9) Magnesium Level 2.2 MG/DL (1.8-2.4) Ferritin 961 NG/ML (8-388) H Total Bilirubin 0.4 MG/DL (0.2-1.0) Aspartate Amino Transf (AST/SGOT) 38 U/L (15-37) H Alanine Aminotransferase (ALT/SGPT) 34 U/L (12-78) Alkaline Phosphatase 89 U/L (46-116) Lactate Dehydrogenase 341 U/L (81-234) H C-Reactive Protein, Quantitative 7.6 mg/dL (0.00-0.90) H Total Protein 5.2 G/DL (6.4-8.2) L Albumin 2.2 G/DL (3.4-5.0) L Globulin 3.0 g/dL Albumin/Globulin Ratio 0.7 (1.0-2.7) L Test 04/13/20 10:49 04/13/20 17:57 Arterial Blood pH 7.417 (7.350-7.450) Arterial Blood Partial Pressure CO2 38.9 mmHg (35.0-45.0) Arterial Blood Partial Pressure O2 42.7 mmHg (75.0-100.0) Arterial Blood HCO3 24.5 mmol/L (22.0-26.0) Arterial Blood Oxygen Saturation 76.7 % (95-100) *L Arterial Blood Base Excess 0.1 (-2-2) Eulalio Test Positive POC Whole Blood Glucose 155 MG/DL (74-106) H Intake and Output 04/12/20 04/13/20 19:00 07:00 Intake Total 225 ml 1020 ml Output Total 2200 ml 1200 ml Balance -1975 ml -180 ml Intake IV Total 75 ml 970 ml Other 150 ml 50 ml Output Urine Total 2200 ml 1200 ml # Bowel Movements 4 2 Objective PHYSICAL EXAMINATION: GENERAL: The patient awake, responsive, however altered and confused. The patient appears to be paler and chronically-ill appearing. HEAD AND NECK: Pupils are equal and reactive to light. Extraocular movements are intact. Neck was supple. No JVD. LUNGS: Bilateral air entry. Decreased air in the bases. HEART: S1, S2. Tachycardic, irregular. No murmur or gallop was appreciated. ABDOMEN: Soft, nondistended. Tenderness on the lower abdominal area. Mildly obese. EXTREMITIES: No cyanosis, clubbing, or edema. GENITOURINARY: The patient noted to have Lowe catheter with dark red urine collection in a Lowe catheter. NEUROLOGIC: Cranial nerves II through XII grossly intact. The patient moving all extremities equally. Sensory is intact. Gait was not able to assess due to the patient's status. RECTAL: Refused and deferred. PSYCHIATRIC: Mood and affect, unable to obtain due to the patient's status. Assessment/Plan Assessment/Plan ASSESSMENT: 1. COVID-19 pneumonia. 2. Altered mental status, most likely secondary to toxic metabolic encephalopathy. 3. Atrial fibrillation with rapid ventricular rate. 4. Anemia most likely secondary to acute blood loss. 5. Sepsis secondary to urinary tract infection as well as pneumonia. 6. Vaginal bleeding. 7. UTI=VRE 8. History of diabetes type 2. 9. Inoperable endometrial adenocarcinoma, status post brachytherapy. 10. Hypertension. 11. History of lacunar infarction. PLAN: 1. Admit the patient to ICU. 2. Dr. Buitrago=Pulmonary/Critical Care 3. Dr. Wale Wu = Cardiology. 4. antibiotic=vancomycin linezolid and cefepime. 5. Admit to droplet isolation COVID- room. 6. Code status =Full Code. 7. DVT prophylaxis SCD. 8. S/P transfusion 2 units of packed RBC. 9. Continue Levophed as needed to support the blood pressure 10. ID=Tariq Márquez MD Apr 13, 2020 18:40
--- NOTE | 2020-04-13 19:03 | Cardiology Progress Note ---
Assessment/Plan Assessment/Plan hs of hypertension, diabetes previous CVA, COVID infection Sinus tachy (incorrect diagnosis of afib with tachycardia) hypotension, a/ hemorraghic shock vaginal bleeding. anemia s/p prbc tx pt in covid isolation exam deferred tele personally reviewed no afib just sinus no fever abx supportive care keep on tele monitoring bp seem ok Subjective Subjective covid pt uin soloalion per rn RN. Pt is resting in bed, awake and oriented to name, without acute distress. Pt AMS but able to communicate via facial expression and body movement. NC @ 4 L O2, SR w/ HR 78, BP 118/73, O2 sat 100%, T 97.2. Objective Last 24 Hour Vital Signs Date Time Temp Pulse Resp B/P (MAP) Pulse Ox O2 Delivery O2 Flow Rate FiO2 04/13/20 18:00 4.0 04/13/20 16:00 71 04/13/20 16:00 Nasal Cannula 4.0 04/13/20 16:00 97.3 82 20 107/48 (67) 100 82 04/13/20 12:00 Nasal Cannula 4.0 04/13/20 12:00 97.3 90 20 114/73 (87) 98 90 04/13/20 12:00 80 04/13/20 08:00 Nasal Cannula 2.0 04/13/20 08:00 97.2 78 20 118/73 (88) 100 78 04/13/20 08:00 73 04/13/20 07:20 95 Nasal Cannula 4.0 36 04/13/20 04:00 72 04/13/20 04:00 97.5 67 24 109/86 (94) 100 04/13/20 04:00 Nasal Cannula 2.0 04/13/20 00:15 Nasal Cannula 2.0 04/13/20 00:00 97.9 92 20 135/55 (81) 97 04/13/20 00:00 83 04/12/20 21:00 84 04/12/20 20:00 Nasal Cannula 2.0 04/12/20 20:00 97.9 91 22 119/69 (86) 97 04/12/20 19:03 97 Nasal Cannula 2.0 28 Intake and Output 04/12/20 04/13/20 19:00 07:00 Intake Total 225 ml 1020 ml Output Total 2200 ml 1200 ml Balance -1975 ml -180 ml Intake IV Total 75 ml 970 ml Other 150 ml 50 ml Output Urine Total 2200 ml 1200 ml # Bowel Movements 4 2 Laboratory Tests Test 04/12/20 20:53 04/13/20 03:47 04/13/20 05:21 04/13/20 10:10 POC Whole Blood Glucose 106 MG/DL (74-106) 121 MG/DL (74-106) H 120 MG/DL (74-106) H White Blood Count 6.9 K/UL (4.8-10.8) Red Blood Count 3.55 M/UL (4.20-5.40) L Hemoglobin 10.0 G/DL (12.0-16.0) L Hematocrit 30.5 % (37.0-47.0) L Mean Corpuscular Volume 86 FL (80-99) Mean Corpuscular Hemoglobin 28.1 PG (27.0-31.0) Mean Corpuscular Hemoglobin Concent 32.6 G/DL (32.0-36.0) Red Cell Distribution Width 13.1 % (11.6-14.8) Platelet Count 242 K/UL (150-450) Mean Platelet Volume 6.0 FL (6.5-10.1) L Neutrophils (%) (Auto) % (45.0-75.0) Lymphocytes (%) (Auto) % (20.0-45.0) Monocytes (%) (Auto) % (1.0-10.0) Eosinophils (%) (Auto) % (0.0-3.0) Basophils (%) (Auto) % (0.0-2.0) Differential Total Cells Counted 100 Neutrophils % (Manual) 91 % (45-75) H Lymphocytes % (Manual) 5 % (20-45) L Monocytes % (Manual) 4 % (1-10) Eosinophils % (Manual) 0 % (0-3) Basophils % (Manual) 0 % (0-2) Band Neutrophils 0 % (0-8) Platelet Estimate Adequate Platelet Morphology Normal Fibrinogen 347 mg/dL (200-400) D-Dimer 2.16 mg/L FEU (0.00-0.49) H Sodium Level 136 MMOL/L (136-145) Potassium Level 4.3 MMOL/L (3.5-5.1) Chloride Level 101 MMOL/L (98-107) Carbon Dioxide Level 27 MMOL/L (21-32) Anion Gap 8 mmol/L (5-15) Blood Urea Nitrogen 4 mg/dL (7-18) L Creatinine 0.5 MG/DL (0.55-1.30) L Estimat Glomerular Filtration Rate > 60 mL/min (>60) Glucose Level 129 MG/DL (74-106) H Calcium Level 8.2 MG/DL (8.5-10.1) L Phosphorus Level 3.3 MG/DL (2.5-4.9) Magnesium Level 2.2 MG/DL (1.8-2.4) Ferritin 961 NG/ML (8-388) H Total Bilirubin 0.4 MG/DL (0.2-1.0) Aspartate Amino Transf (AST/SGOT) 38 U/L (15-37) H Alanine Aminotransferase (ALT/SGPT) 34 U/L (12-78) Alkaline Phosphatase 89 U/L (46-116) Lactate Dehydrogenase 341 U/L (81-234) H C-Reactive Protein, Quantitative 7.6 mg/dL (0.00-0.90) H Total Protein 5.2 G/DL (6.4-8.2) L Albumin 2.2 G/DL (3.4-5.0) L Globulin 3.0 g/dL Albumin/Globulin Ratio 0.7 (1.0-2.7) L Test 04/13/20 10:49 04/13/20 17:57 Arterial Blood pH 7.417 (7.350-7.450) Arterial Blood Partial Pressure CO2 38.9 mmHg (35.0-45.0) Arterial Blood Partial Pressure O2 42.7 mmHg (75.0-100.0) Arterial Blood HCO3 24.5 mmol/L (22.0-26.0) Arterial Blood Oxygen Saturation 76.7 % (95-100) *L Arterial Blood Base Excess 0.1 (-2-2) Eulalio Test Positive POC Whole Blood Glucose 155 MG/DL (74-106) H Objective exam deferred as in isolation per drsmoras note LUNGS: Bilateral air entry. Decreased air in the bases. HEART: S1, S2. Tachycardic, irregular. No murmur or gallop was appreciated. ABDOMEN: Soft, nondistended. Tenderness on the lower abdominal area. Mildly obese. EXTREMITIES: No cyanosis, clubbing, or edema. GENITOURINARY: The patient noted to have Lowe catheter with dark red urine collection in a Lowe catheter. Wale Wu MD Apr 13, 2020 19:03
--- NOTE | 2020-04-13 19:15 | NUR ---
NURSE NOTES: Report received from Elena. BOND. Patient awake in bed, afebrile and watching TV, has no respiratory distress. With NC at 4lpm patient saturating at 97-98%. With Left AC 18g and Right femoral TLC intact, flushed and asymptomatic. With pure wick in place and draining urine. Needs were attended. Call light within reach. Bed rails are up and wheels are locked. HOB elevated. Continue plan of care
--- NOTE | 2020-04-13 19:25 | Infectious Diseases Prog Note ---
Assessment/Plan Assessment: Septic Shock- SP COVID19 pneumonia- on 2l NC> hypoxic on ABG, now at 4L NC -04/12 CXR: Bilateral infiltrates, developing since 04/08/2020, likely on the basis of pneumonia. -04/08 CXR: Mild diffuse peribronchial thickening in the absence of airspace consolidation, which is nonspecific but can be seen with infectious/inflammatory airways disease in the appropriate clinical context. rapid covid pcr + UTI -04/09 ucx >100k VRE (E. faecium); S linezolid -04/08 u/a wbc tnct, nit neg, leuk +3; ucx <10k P, mirabilis (S Ceftriaxone, Zosyn), >100k gamma hemolytic strep Gram positive bacteremia- likely contaminant -04/08 Bcx 1/4 S. hominis, 2/4 S. auricularis ; 04/10 Bcx p Low grade fever, SP No leukocytosis Vaginal bleeding -CT abd/p wo: Study limited due to lack of IV contrast. Pulmonary findings could represent multifocal pneumonia or aspiration.These findings could also represent viral pneumonia, although this is not highly specific pattern. Prominent rectal stool burden with mild wall thickening could represent stercoral colitis in the proper context. Otherwise, diffuse large colonic stool burden could be a cause for pain. Left superior renal pole ill-defined mild hyperdensity could be a manifestation of chronic medical renal disease in the proper context. Consider outpatient CT adrenal glands to further evaluate indeterminate left adrenal 1.2 cm nodularity. Calcified fibroid uterus. Appendectomy. 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 CXR worsening, increasing O2 requirements and hypoxic on ABG --discussed with pharmacy staff and Dr Krause- awaiting approval -04/12 SP IV Vancomycin #5 -f/u cx -Monitor CBC/CMP, temperatures -COVID19 isolation -f/u repeat Bcx x2 -CXR am Thank you for this consultation. Will continue to follow along with you. Discussed with pharmacy staff and Dr Krause- awaiting approval for remdesivir. Subjective Allergies: Coded Allergies: No Known Allergies (Unverified , 03/11/19) afebrile> 48hrs hypoxic on ABG, now at 4l NC Objective Last 24 Hour Vital Signs Date Time Temp Pulse Resp B/P (MAP) Pulse Ox O2 Delivery O2 Flow Rate FiO2 04/13/20 18:00 4.0 04/13/20 16:00 71 04/13/20 16:00 Nasal Cannula 4.0 04/13/20 16:00 97.3 82 20 107/48 (67) 100 82 04/13/20 12:00 Nasal Cannula 4.0 04/13/20 12:00 97.3 90 20 114/73 (87) 98 90 04/13/20 12:00 80 04/13/20 08:00 Nasal Cannula 2.0 04/13/20 08:00 97.2 78 20 118/73 (88) 100 78 04/13/20 08:00 73 04/13/20 07:20 95 Nasal Cannula 4.0 36 04/13/20 04:00 72 04/13/20 04:00 97.5 67 24 109/86 (94) 100 04/13/20 04:00 Nasal Cannula 2.0 04/13/20 00:15 Nasal Cannula 2.0 04/13/20 00:00 97.9 92 20 135/55 (81) 97 04/13/20 00:00 83 04/12/20 21:00 84 04/12/20 20:00 Nasal Cannula 2.0 04/12/20 20:00 97.9 91 22 119/69 (86) 97 Height (Feet): 5 Height (Inches): 6.00 Weight (Pounds): 160 GENERAL: The patient awake, responsive, however altered and confused. The patient appears to be paler and chronically-ill appearing. HEAD AND NECK: Pupils are equal and reactive to light. Extraocular movements are intact. Neck was supple. No JVD. LUNGS: Bilateral air entry. Decreased air in the bases. HEART: S1, S2. Tachycardic, irregular. No murmur or gallop was appreciated. ABDOMEN: Soft, nondistended. Tenderness on the lower abdominal area. Mildly obese. EXTREMITIES: No cyanosis, clubbing, or edema. GENITOURINARY: The patient noted to have Lowe catheter with dark red urine collection in a Lowe catheter. Laboratory Tests Test 04/12/20 20:53 04/13/20 03:47 04/13/20 05:21 04/13/20 10:10 POC Whole Blood Glucose 106 MG/DL (74-106) 121 MG/DL (74-106) H 120 MG/DL (74-106) H White Blood Count 6.9 K/UL (4.8-10.8) Red Blood Count 3.55 M/UL (4.20-5.40) L Hemoglobin 10.0 G/DL (12.0-16.0) L Hematocrit 30.5 % (37.0-47.0) L Mean Corpuscular Volume 86 FL (80-99) Mean Corpuscular Hemoglobin 28.1 PG (27.0-31.0) Mean Corpuscular Hemoglobin Concent 32.6 G/DL (32.0-36.0) Red Cell Distribution Width 13.1 % (11.6-14.8) Platelet Count 242 K/UL (150-450) Mean Platelet Volume 6.0 FL (6.5-10.1) L Neutrophils (%) (Auto) % (45.0-75.0) Lymphocytes (%) (Auto) % (20.0-45.0) Monocytes (%) (Auto) % (1.0-10.0) Eosinophils (%) (Auto) % (0.0-3.0) Basophils (%) (Auto) % (0.0-2.0) Differential Total Cells Counted 100 Neutrophils % (Manual) 91 % (45-75) H Lymphocytes % (Manual) 5 % (20-45) L Monocytes % (Manual) 4 % (1-10) Eosinophils % (Manual) 0 % (0-3) Basophils % (Manual) 0 % (0-2) Band Neutrophils 0 % (0-8) Platelet Estimate Adequate Platelet Morphology Normal Fibrinogen 347 mg/dL (200-400) D-Dimer 2.16 mg/L FEU (0.00-0.49) H Sodium Level 136 MMOL/L (136-145) Potassium Level 4.3 MMOL/L (3.5-5.1) Chloride Level 101 MMOL/L (98-107) Carbon Dioxide Level 27 MMOL/L (21-32) Anion Gap 8 mmol/L (5-15) Blood Urea Nitrogen 4 mg/dL (7-18) L Creatinine 0.5 MG/DL (0.55-1.30) L Estimat Glomerular Filtration Rate > 60 mL/min (>60) Glucose Level 129 MG/DL (74-106) H Calcium Level 8.2 MG/DL (8.5-10.1) L Phosphorus Level 3.3 MG/DL (2.5-4.9) Magnesium Level 2.2 MG/DL (1.8-2.4) Ferritin 961 NG/ML (8-388) H Total Bilirubin 0.4 MG/DL (0.2-1.0) Aspartate Amino Transf (AST/SGOT) 38 U/L (15-37) H Alanine Aminotransferase (ALT/SGPT) 34 U/L (12-78) Alkaline Phosphatase 89 U/L (46-116) Lactate Dehydrogenase 341 U/L (81-234) H C-Reactive Protein, Quantitative 7.6 mg/dL (0.00-0.90) H Total Protein 5.2 G/DL (6.4-8.2) L Albumin 2.2 G/DL (3.4-5.0) L Globulin 3.0 g/dL Albumin/Globulin Ratio 0.7 (1.0-2.7) L Test 04/13/20 10:49 04/13/20 17:57 Arterial Blood pH 7.417 (7.350-7.450) Arterial Blood Partial Pressure CO2 38.9 mmHg (35.0-45.0) Arterial Blood Partial Pressure O2 42.7 mmHg (75.0-100.0) Arterial Blood HCO3 24.5 mmol/L (22.0-26.0) Arterial Blood Oxygen Saturation 76.7 % (95-100) *L Arterial Blood Base Excess 0.1 (-2-2) Eulalio Test Positive POC Whole Blood Glucose 155 MG/DL (74-106) H Current Medications Medications (Trade) Dose Ordered Sig/Jere Route PRN Reason Start Time Stop Time Status Last Admin Dose Admin Acetaminophen (Tylenol) 650 mg Q4H PRN ORAL fever 04/08/20 19:00 05/08/20 18:59 9/22/20 00:27 Barium Sulfate (Varibar Honey) 250 ml NOW PRN RAD 04/12/20 13:15 04/15/20 13:04 Barium Sulfate (Varibar [place]) 240 ml NOW PRN RAD 04/12/20 13:15 04/15/20 13:04 Barium Sulfate (Varibar Pudding) 230 ml NOW PRN RAD 04/12/20 13:15 04/15/20 13:04 Barium Sulfate (Varibar Thin Liquid powder) 148 gm NOW PRN RAD 04/12/20 13:15 04/15/20 13:04 Cefepime HCl 2 gm/ Dextrose 110 ml @ 220 mls/hr Q12H IV 04/09/20 21:00 04/16/20 20:59 04/13/20 09:52 Chlorhexidine Gluconate (Geno-Hex 2%) 1 applic DAILY@2000 TOPIC 04/08/20 20:00 07/07/20 19:59 04/12/20 20:43 Dexamethasone (Decadron) 6 mg DAILY ORAL 04/12/20 15:15 04/21/20 09:01 04/13/20 09:51 Dextrose (Dextrose 50%) 25 ml Q30M PRN IV Hypoglycemia 04/09/20 07:45 07/08/20 07:44 04/11/20 16:12 Dextrose (Dextrose 50%) 50 ml Q30M PRN IV Hypoglycemia 04/09/20 07:45 07/08/20 07:44 Dextrose/ Electrolytes 1,000 ml @ 30 mls/hr Q24H IV 04/08/20 22:30 05/08/20 22:29 04/13/20 18:17 Insulin Aspart (NovoLOG) BEFORE MEALS AND HS SUBQ 04/09/20 11:30 07/08/20 11:29 04/10/20 12:08 Linezolid (Zyvox) 600 mg EVERY 12 HOURS ORAL 04/12/20 15:00 04/17/20 14:59 04/13/20 09:52 Metoprolol Tartrate (Lopressor) 5 mg Q1H PRN IVP spb more than 120 04/08/20 19:00 07/07/20 18:59 Ondansetron HCl (Zofran) 4 mg Q6H PRN IVP Nausea & Vomiting 04/08/20 19:00 05/08/20 18:59 Pantoprazole (Protonix) 40 mg EVERY 12 HOURS IVP 04/10/20 21:00 05/10/20 20:59 04/13/20 09:51 Polyethylene Glycol (Miralax) 17 gm BEDTIME ORAL 04/09/20 21:00 05/09/20 20:59 04/12/20 20:44 Polyethylene Glycol (Miralax) 17 gm DAILYPRN PRN ORAL Constipation 04/08/20 19:00 05/08/20 18:59 Temazepam (Restoril) 15 mg HSPRN PRN ORAL Insomnia 04/08/20 19:00 04/15/20 18:59 Laurie Gautam M.D. Apr 13, 2020 19:25
[2020-04-13] MEDS ORDERED: Remdesivir Fact Sheet MISC SCH (19:30)
--- NOTE | 2020-04-13 19:34 | NUR ---
NURSE HAND-OFF REPORT: Important Events on Shift: ABG pO2 is 44. O2 increase to 4 L NC Patient Status: stable, full code Diet: consistent Carb diet, thin liquids Pending Orders: N/A Pending Results/Labs:N/A Pending MD notification:N/A Latest Vital Signs: Temperature 97.3 , Pulse 82 , B/P 107 /48 , Respiratory Rate 20 , O2 SAT 100 , Nasal Cannula, O2 Flow Rate 4.0 . Vital Sign Comment: stable EKG Rhythm: Sinus Rhythm Rhythm change?: N MD Notified?: - MD Response: Latest Ortega Fall Score: 55 Fall Risk: High Risk Safety Measures: Call light Within Reach, Bed Alarm Zone 2, Side Rails Side Rails x3, Bed position Low and Locked. Fall Precautions: Yellow Socks Yellow Gown Door Sign Patient Fall Education Report given to VARUN LUCAS.
--- NOTE | 2020-04-13 19:49 | NUR ---
NURSE NOTES: left a Voice mail to DR Wu regarding aptient's D dimer result. Awaiting response
[2020-04-13 20:00] VITALS: BP 134/78
--- NOTE | 2020-04-13 20:30 | NUR ---
NURSE NOTES: Received a call and spoke to DR Wu. Made him aware fo D dimer result. Pt has no chest pain or any discomfort. Pt is asleep and responsive to name, shaking and pain. No new orders at this time.
[2020-04-13] MEDS: Dyna-Hex 2% Top Sol 2oz TOPIC SCH (21:10)
[2020-04-13] MEDS: Miralax 17gm pkt ORAL SCH (21:11)
[2020-04-13] MEDS ORDERED: Loading Dose:Remdesivir 200mg/NS 210ml IV SCH ×2 (22:00)
[2020-04-13] MEDS ORDERED: Tubing IV Secondary IV ONE (22:29)
--- NOTE | 2020-04-13 22:50 | NUR ---
NURSE NOTES: Pt asleep at this time. Pt saturating at 100% withotu respiratory distress or discomfort. Pt tolerated part of Mashed potato with gravy and finished apple sauce. Blood sugar WNL. Continue to monitor the patient
[2020-04-14] VITALS: BP 105/73
--- NOTE | 2020-04-14 03:00 | NUR ---
NURSE NOTES: Pt was given partial bed bath. gown and linen changed. Pt tolerated well. Pt smiled after the hygiene and went back to sleep. no respiratory distress noted.
[2020-04-14 04:00] VITALS: BP 147/75
[2020-04-14 04:41] LABS: BASOPHILS % (AUTO) 1.5 % (0.0-2.0); EOSINOPHILS % (AUTO) 0.2 % (0.0-3.0); HEMATOCRIT 27.1 % (37.0-47.0); HEMOGLOBIN 9.1 G/DL (12.0-16.0); LYMPHOCYTES % (AUTO) 8.6 % (20.0-45.0); MEAN CORPUSCULAR VOLUME 86 FL (80-99); NEUTROPHILS % (AUTO) 82.7 % (45.0-75.0); PLATELET COUNT 295 K/UL (150-450); RED BLOOD COUNT 3.15 M/UL (4.20-5.40); RED CELL DISTRIBUTION WIDTH 13.2 % (11.6-14.8)
[2020-04-14 04:54] LABS: ALANINE AMINOTRANSFERASE 28 U/L (12-78); ALBUMIN/GLOBULIN RATIO 0.6 (1.0-2.7); ALKALINE PHOSPHATASE 75 U/L (46-116); ANION GAP 6 mmol/L (5-15); ASPARTATE AMINO TRANSFERASE 34 U/L (15-37); BILIRUBIN,TOTAL 0.3 MG/DL (0.2-1.0); BLOOD UREA NITROGEN 6 mg/dL (7-18); CALCIUM 8.2 MG/DL (8.5-10.1); CARBON DIOXIDE 28 MMOL/L (21-32); CHLORIDE 103 MMOL/L (98-107); CREATININE 0.6 MG/DL (0.55-1.30); PHOSPHORUS 2.2 MG/DL (2.5-4.9); POTASSIUM 3.9 MMOL/L (3.5-5.1); SODIUM 137 MMOL/L (136-145)
[2020-04-14] MEDS: NovoLOG Insulin Flexpen SUBQ SCH ×4 (05:42→21:00)
--- NOTE | 2020-04-14 06:20 | NUR ---
NURSE NOTES: Pt woke up when RN came in to check. Pt has no discomforts or any complaints. VS WNL. Oxygen saturating at 98-99%
--- NOTE | 2020-04-14 07:15 | NUR ---
NURSE HAND-OFF REPORT: Important Events on Shift: none Patient Status: stable Diet: CCHO Pending Orders: n Pending Results/Labs:n Pending MD notification:n Latest Vital Signs: Temperature 98.1 , Pulse 82 , B/P 147 /75 , Respiratory Rate 20 , O2 SAT 100 , Nasal Cannula, O2 Flow Rate 4.0 . Vital Sign Comment: n EKG Rhythm: Sinus Rhythm Rhythm change?: N MD Notified?: - MD Response: Latest Ortega Fall Score: 55 Fall Risk: High Risk Safety Measures: Call light Within Reach, Bed Alarm Zone 2, Side Rails Side Rails x3, Bed position Low and Locked. Fall Precautions: Yellow Socks Yellow Gown Door Sign Patient Fall Education Report given to VARUN Morrissey.
--- NOTE | 2020-04-14 07:15 | NUR ---
NURSE NOTES: Report received from LANCE RN, patient resting in bed w/ eyes closed, no s/s of acute distress. On NC at 4L, O2 sat 100%. Left AC 18 g and right femoral TLC patent and intact. Purewick in place, patent. Call light within reach, bed bed locked and in lowest position, bed alarm on.
[2020-04-14 08:00] VITALS: BP 131/68
[2020-04-14] MEDS: Pantoprazole Inj IVP SCH ×2 (09:09→20:29)
[2020-04-14] MEDS: Cefepime HCl 2 GM in D5W 110 ML IV SCH ×2 (09:11→20:30)
[2020-04-14] MEDS ORDERED: Potassium Phosphate 20 MM in NS 275 ML IV ONE (09:30)
--- NOTE | 2020-04-14 10:07 | Infectious Diseases Prog Note ---
Assessment/Plan Assessment: Septic Shock- SP COVID19 pneumonia- on 2l NC> hypoxic on ABG, now at 4L NC -04/12 CXR: Bilateral infiltrates, developing since 04/08/2020, likely on the basis of pneumonia. -04/08 CXR: Mild diffuse peribronchial thickening in the absence of airspace consolidation, which is nonspecific but can be seen with infectious/inflammatory airways disease in the appropriate clinical context. rapid covid pcr + UTI -04/09 ucx >100k VRE (E. faecium); S linezolid -04/08 u/a wbc tnct, nit neg, leuk +3; ucx <10k P, mirabilis (S Ceftriaxone, Zosyn), >100k gamma hemolytic strep Gram positive bacteremia- likely contaminant -04/08 Bcx 1/4 S. hominis, 2/4 S. auricularis ; 04/10 Bcx NGTD Low grade fever, SP No leukocytosis Vaginal bleeding -CT abd/p wo: Study limited due to lack of IV contrast. Pulmonary findings could represent multifocal pneumonia or aspiration.These findings could also represent viral pneumonia, although this is not highly specific pattern. Promi nent rectal stool burden with mild wall thickening could represent stercoral colitis in the proper context. Otherwise, diffuse large colonic stool burden could be a cause for pain. Left superior renal pole ill-defined mild hyperdensity could be a manifestation of chronic medical renal disease in the proper context. Consider outpatient CT adrenal glands to further evaluate indeterminate left adrenal 1.2 cm nodularity. Calcified fibroid uterus. Appendectomy. 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 CXR worsening, increasing O2 requirements and hypoxic on ABG --discussed with pharmacy staff and Dr Krause- awaiting approval -04/12 SP IV Vancomycin #5 -f/u cx -Monitor CBC/CMP, temperatures -COVID19 isolation -f/u repeat Bcx x2 -CXR am Thank you for this consultation. Will continue to follow along with you. Discussed with pharmacy staff and Dr Krause- awaiting approval for remdesivir. Subjective Allergies: Coded Allergies: No Known Allergies (Unverified , 03/11/19) Afebrile Leukocytosis mild SARAY Objective Last 24 Hour Vital Signs Date Time Temp Pulse Resp B/P (MAP) Pulse Ox O2 Delivery O2 Flow Rate FiO2 04/14/20 08:00 98.1 85 18 131/68 (89) 100 85 04/14/20 08:00 Nasal Cannula 4.0 04/14/20 07:27 96 Nasal Cannula 4.0 36 04/14/20 04:00 98.1 89 20 147/75 (99) 100 82 04/14/20 04:00 Nasal Cannula 4.0 04/14/20 03:51 89 04/14/20 00:00 97.5 84 20 105/73 (84) 100 82 04/14/20 00:00 Nasal Cannula 4.0 04/13/20 23:29 80 04/13/20 20:00 Nasal Cannula 4.0 04/13/20 20:00 96.6 101 20 134/78 (96) 100 82 04/13/20 19:20 93 04/13/20 18:00 4.0 04/13/20 16:00 71 04/13/20 16:00 Nasal Cannula 4.0 04/13/20 16:00 97.3 82 20 107/48 (67) 100 82 04/13/20 12:00 Nasal Cannula 4.0 04/13/20 12:00 97.3 90 20 114/73 (87) 98 90 04/13/20 12:00 80 Height (Feet): 5 Height (Inches): 6.00 Weight (Pounds): 160 GENERAL: NAD confused on 4L NC HEENT: NCAT, MMM, EOMI LUNGS: Equal rise and fall of chest B/L no accessory muscle use ABDOMEN: Soft, nondistended EXTREMITIES: No cyanosis, clubbing, or edema. Microbiology Date/Time Source Procedure Growth Status 04/12/20 19:30 Blood Blood Culture - Preliminary NO GROWTH AFTER 24 HOURS Resulted 04/12/20 19:15 Blood Blood Culture - Preliminary NO GROWTH AFTER 24 HOURS Resulted Laboratory Tests Test 04/13/20 10:10 04/13/20 10:49 04/13/20 17:57 04/13/20 21:19 POC Whole Blood Glucose 120 MG/DL (74-106) H 155 MG/DL (74-106) H Pending Arterial Blood pH 7.417 (7.350-7.450) Arterial Blood Partial Pressure CO2 38.9 mmHg (35.0-45.0) Arterial Blood Partial Pressure O2 42.7 mmHg (75.0-100.0) Arterial Blood HCO3 24.5 mmol/L (22.0-26.0) Arterial Blood Oxygen Saturation 76.7 % (95-100) *L Arterial Blood Base Excess 0.1 (-2-2) Eulalio Test Positive Test 04/14/20 03:30 04/14/20 05:07 White Blood Count 12.0 K/UL (4.8-10.8) #H Red Blood Count 3.15 M/UL (4.20-5.40) L Hemoglobin 9.1 G/DL (12.0-16.0) L Hematocrit 27.1 % (37.0-47.0) L Mean Corpuscular Volume 86 FL (80-99) Mean Corpuscular Hemoglobin 29.0 PG (27.0-31.0) Mean Corpuscular Hemoglobin Concent 33.7 G/DL (32.0-36.0) Red Cell Distribution Width 13.2 % (11.6-14.8) Platelet Count 295 K/UL (150-450) Mean Platelet Volume 5.7 FL (6.5-10.1) L Neutrophils (%) (Auto) 82.7 % (45.0-75.0) H Lymphocytes (%) (Auto) 8.6 % (20.0-45.0) L Monocytes (%) (Auto) 7.0 % (1.0-10.0) Eosinophils (%) (Auto) 0.2 % (0.0-3.0) Basophils (%) (Auto) 1.5 % (0.0-2.0) Erythrocyte Sedimentation Rate 40 MM/HR (0-30) H Sodium Level 137 MMOL/L (136-145) Potassium Level 3.9 MMOL/L (3.5-5.1) Chloride Level 103 MMOL/L (98-107) Carbon Dioxide Level 28 MMOL/L (21-32) Anion Gap 6 mmol/L (5-15) Blood Urea Nitrogen 6 mg/dL (7-18) L Creatinine 0.6 MG/DL (0.55-1.30) Estimat Glomerular Filtration Rate > 60 mL/min (>60) Glucose Level 117 MG/DL (74-106) H Calcium Level 8.2 MG/DL (8.5-10.1) L Phosphorus Level 2.2 MG/DL (2.5-4.9) L Magnesium Level 1.7 MG/DL (1.8-2.4) L Total Bilirubin 0.3 MG/DL (0.2-1.0) Direct Bilirubin < 0.1 MG/DL (0.0-0.3) Aspartate Amino Transf (AST/SGOT) 34 U/L (15-37) Alanine Aminotransferase (ALT/SGPT) 28 U/L (12-78) Alkaline Phosphatase 75 U/L (46-116) C-Reactive Protein, Quantitative 3.1 mg/dL (0.00-0.90) H Total Protein 5.6 G/DL (6.4-8.2) L Albumin 2.0 G/DL (3.4-5.0) L Globulin 3.6 g/dL Albumin/Globulin Ratio 0.6 (1.0-2.7) L POC Whole Blood Glucose 100 MG/DL (74-106) Current Medications Medications (Trade) Dose Ordered Sig/Jree Route PRN Reason Start Time Stop Time Status Last Admin Dose Admin Acetaminophen (Tylenol) 650 mg Q4H PRN ORAL fever 04/08/20 19:00 05/08/20 18:59 04/12/20 00:27 Barium Sulfate (Varibar Honey) 250 ml NOW PRN RAD 04/12/20 13:15 04/15/20 13:04 Barium Sulfate (Varibar [place]) 240 ml NOW PRN RAD 04/12/20 13:15 04/15/20 13:04 Barium Sulfate (Varibar Pudding) 230 ml NOW PRN RAD 04/12/20 13:15 04/15/20 13:04 Barium Sulfate (Varibar Thin Liquid powder) 148 gm NOW PRN RAD 04/12/20 13:15 04/15/20 13:04 Cefepime HCl 2 gm/ Dextrose 110 ml @ 220 mls/hr Q12H IV 04/09/20 21:00 04/16/20 20:59 04/14/20 09:11 Chlorhexidine Gluconate (Geno-Hex 2%) 1 applic DAILY@2000 TOPIC 04/08/20 20:00 07/07/20 19:59 04/13/20 21:10 Dexamethasone (Decadron) 6 mg DAILY ORAL 04/12/20 15:15 04/21/20 09:01 04/14/20 09:09 Dextrose (Dextrose 50%) 25 ml Q30M PRN IV Hypoglycemia 04/09/20 07:45 07/08/20 07:44 04/11/20 16:12 Dextrose (Dextrose 50%) 50 ml Q30M PRN IV Hypoglycemia 04/09/20 07:45 07/08/20 07:44 Dextrose/ Electrolytes 1,000 ml @ 30 mls/hr Q24H IV 04/08/20 22:30 05/08/20 22:29 04/13/20 18:17 Insulin Aspart (NovoLOG) BEFORE MEALS AND HS SUBQ 04/09/20 11:30 07/08/20 11:29 04/10/20 12:08 Linezolid (Zyvox) 600 mg EVERY 12 HOURS ORAL 04/12/20 15:00 04/17/20 14:59 04/14/20 09:09 Magnesium Sulfate 100 ml @ 100 mls/hr Q1H IVPB 04/14/20 08:30 04/14/20 12:29 04/14/20 09:10 Metoprolol Tartrate (Lopressor) 5 mg Q1H PRN IVP spb more than 120 04/08/20 19:00 07/07/20 18:59 Ondansetron HCl (Zofran) 4 mg Q6H PRN IVP Nausea & Vomiting 04/08/20 19:00 05/08/20 18:59 Pantoprazole (Protonix) 40 mg EVERY 12 HOURS IVP 04/10/20 21:00 05/10/20 20:59 04/14/20 09:09 Polyethylene Glycol (Miralax) 17 gm BEDTIME ORAL 04/09/20 21:00 05/09/20 20:59 04/13/20 21:11 Polyethylene Glycol (Miralax) 17 gm DAILYPRN PRN ORAL Constipation 04/08/20 19:00 05/08/20 18:59 Potassium Phosphate 20 mm/ Sodium Chloride 281.6667 ml @ 46.944 m... ONCE ONCE IV 04/14/20 09:30 04/14/20 15:29 04/14/20 09:39 Remdesivir 100 mg/ Sodium Chloride 250 ml @ 250 mls/hr Q24H IV 04/14/20 22:00 04/17/20 22:59 Temazepam (Restoril) 15 mg HSPRN PRN ORAL Insomnia 04/08/20 19:00 04/15/20 18:59 Prabhu Jacques MD Apr 14, 2020 10:07
--- NOTE | 2020-04-14 10:30 | Pulmonology Progress Note ---
Subjective ROS Limited/Unobtainable: No Constitutional: Reports: no symptoms HEENT: Repors: no symptoms Allergies: Coded Allergies: No Known Allergies (Unverified , 03/11/19) Objective Last 24 Hour Vital Signs Date Time Temp Pulse Resp B/P (MAP) Pulse Ox O2 Delivery O2 Flow Rate FiO2 04/14/20 08:00 98.1 85 18 131/68 (89) 100 85 04/14/20 08:00 Nasal Cannula 4.0 04/14/20 07:27 96 Nasal Cannula 4.0 36 04/14/20 04:00 98.1 89 20 147/75 (99) 100 82 04/14/20 04:00 Nasal Cannula 4.0 04/14/20 03:51 89 04/14/20 00:00 97.5 84 20 105/73 (84) 100 82 04/14/20 00:00 Nasal Cannula 4.0 04/13/20 23:29 80 04/13/20 20:00 Nasal Cannula 4.0 04/13/20 20:00 96.6 101 20 134/78 (96) 100 82 04/13/20 19:20 93 04/13/20 18:00 4.0 04/13/20 16:00 71 04/13/20 16:00 Nasal Cannula 4.0 04/13/20 16:00 97.3 82 20 107/48 (67) 100 82 04/13/20 12:00 Nasal Cannula 4.0 04/13/20 12:00 97.3 90 20 114/73 (87) 98 90 04/13/20 12:00 80 Intake and Output 04/13/20 04/14/20 19:00 07:00 Intake Total 675 ml 720 ml Output Total 1400 ml 800 ml Balance -725 ml -80 ml Intake IV Total 675 ml 720 ml Output Urine Total 1400 ml 800 ml # Bowel Movements 1 2 General Appearance: WD/WN HEENT: normocephalic, atraumatic Respiratory: chest wall non-tender, lungs clear Breasts: no masses Cardiovascular: normal peripheral pulses Abdomen: normal bowel sounds, soft, non tender, no organomegaly Extremities: no cyanosis Neurologic: warping machine operator II-XII 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 Microbiology Date/Time Source Procedure Growth Status 04/12/20 19:30 Blood Blood Culture - Preliminary NO GROWTH AFTER 24 HOURS Resulted 04/12/20 19:15 Blood Blood Culture - Preliminary NO GROWTH AFTER 24 HOURS Resulted Laboratory Tests 04/13/20 10:49: Arterial Blood pH 7.417, Arterial Blood Partial Pressure CO2 38.9, Arterial Blood Partial Pressure O2 42.7*L, Arterial Blood HCO3 24.5, Arterial Blood Oxygen Saturation 76.7*L, Arterial Blood Base Excess 0.1, Eulalio Test Positive 04/13/20 17:57: POC Whole Blood Glucose 155H 04/13/20 21:19: POC Whole Blood Glucose [Pending] 04/14/20 03:30: White Blood Count 12.0#H, Red Blood Count 3.15L, Hemoglobin 9.1L, Hematocrit 27.1L, Mean Corpuscular Volume 86, Mean Corpuscular Hemoglobin 29.0, Mean Corpuscular Hemoglobin Concent 33.7, Red Cell Distribution Width 13.2, Platelet Count 295, Mean Platelet Volume 5.7L, Neutrophils (%) (Auto) 82.7H, Lymphocytes (%) (Auto) 8.6L, Monocytes (%) (Auto) 7.0, Eosinophils (%) (Auto) 0.2, Basophils (%) (Auto) 1.5, Erythrocyte Sedimentation Rate 40H, Sodium Level 137, Potassium Level 3.9, Chloride Level 103, Carbon Dioxide Level 28, Anion Gap 6, Blood Urea Nitrogen 6L, Creatinine 0.6, Estimat Glomerular Filtration Rate > 60, Glucose Level 117H, Calcium Level 8.2L, Phosphorus Level 2.2L, Magnesium Level 1.7L, Total Bilirubin 0.3, Direct Bilirubin < 0.1, Aspartate Amino Transf (AST/SGOT) 34, Alanine Aminotransferase (ALT/SGPT) 28, Alkaline Phosphatase 75, C-Reactive Protein, Quantitative 3.1H, Total Protein 5.6L, Albumin 2.0L, Globulin 3.6, Alb umin/Globulin Ratio 0.6L 04/14/20 05:07: POC Whole Blood Glucose 100 Current Medications Medications (Trade) Dose Ordered Sig/Jere Route PRN Reason Start Time Stop Time Status Last Admin Dose Admin Acetaminophen (Tylenol) 650 mg Q4H PRN ORAL fever 04/08/20 19:00 05/08/20 18:59 04/12/20 00:27 Barium Sulfate (Varibar Honey) 250 ml NOW PRN MC RAD 04/12/20 13:15 04/15/20 13:04 Barium Sulfate (Varibar [place]) 240 ml NOW PRN RAD 04/12/20 13:15 04/15/20 13:04 Barium Sulfate (Varibar Pudding) 230 ml NOW PRN RAD 04/12/20 13:15 04/15/20 13:04 Barium Sulfate (Varibar Thin Liquid powder) 148 gm NOW PRN RAD 04/12/20 13:15 04/15/20 13:04 Cefepime HCl 2 gm/ Dextrose 110 ml @ 220 mls/hr Q12H IV 04/09/20 21:00 04/16/20 20:59 04/14/20 09:11 Chlorhexidine Gluconate (Geno-Hex 2%) 1 applic DAILY@2000 TOPIC 04/08/20 20:00 07/07/20 19:59 04/13/20 21:10 Dexamethasone (Decadron) 6 mg DAILY ORAL 04/12/20 15:15 04/21/20 09:01 04/14/20 09:09 Dextrose (Dextrose 50%) 25 ml Q30M PRN IV Hypoglycemia 04/09/20 07:45 07/08/20 07:44 04/11/20 16:12 Dextrose (Dextrose 50%) 50 ml Q30M PRN IV Hypoglycemia 04/09/20 07:45 07/08/20 07:44 Dextrose/ Electrolytes 1,000 ml @ 30 mls/hr Q24H IV 04/08/20 22:30 05/08/20 22:29 04/13/20 18:17 Insulin Aspart (NovoLOG) BEFORE MEALS AND HS SUBQ 04/09/20 11:30 07/08/20 11:29 04/10/20 12:08 Linezolid (Zyvox) 600 mg EVERY 12 HOURS ORAL 04/12/20 15:00 04/17/20 14:59 04/14/20 09:09 Magnesium Sulfate 100 ml @ 100 mls/hr Q1H IVPB 04/14/20 08:30 04/14/20 12:29 04/14/20 10:06 Metoprolol Tartrate (Lopressor) 5 mg Q1H PRN IVP spb more than 120 04/08/20 19:00 07/07/20 18:59 Ondansetron HCl (Zofran) 4 mg Q6H PRN IVP Nausea & Vomiting 04/08/20 19:00 05/08/20 18:59 Pantoprazole (Protonix) 40 mg EVERY 12 HOURS IVP 04/10/20 21:00 05/10/20 20:59 04/14/20 09:09 Polyethylene Glycol (Miralax) 17 gm BEDTIME ORAL 04/09/20 21:00 05/09/20 20:59 04/13/20 21:11 Polyethylene Glycol (Miralax) 17 gm DAILYPRN PRN ORAL Constipation 04/08/20 19:00 05/08/20 18:59 Potassium Phosphate 20 mm/ Sodium Chloride 281.6667 ml @ 46.944 m... ONCE ONCE IV 04/14/20 09:30 04/14/20 15:29 04/14/20 09:39 Remdesivir 100 mg/ Sodium Chloride 250 ml @ 250 mls/hr Q24H IV 04/14/20 22:00 04/17/20 22:59 Temazepam (Restoril) 15 mg HSPRN PRN ORAL Insomnia 04/08/20 19:00 04/15/20 18:59 Assessment/Plan Problems: (1) Hemorrhagic shock (2) Sepsis (3) Bacteremia (4) History of CVA (cerebrovascular accident) (5) Rectal bleeding (6) Hematuria Assessment/Plan confused Neuro evaluation requested f/u ID recommendations check electrolytes GI note appreciated continue Decadron dvt prophylaxis. Marina Buitrago MD Apr 14, 2020 10:30
--- NOTE | 2020-04-14 10:44 | NUR ---
RADIOLOGY DEPT., CHEST X-RAY DONE.-P.DYE
--- NOTE | 2020-04-14 11:27 | NUR ---
RD ASSESSMENT & RECOMMENDATIONS SEE CARE ACTIVITY FOR COMPLETE ASSESSMENT DAILY ESTIMATED NEEDS: Needs based on Obesity, cardiac/ 67.6kg abw 22-27 kcals/kg 2367-2225 total kcals 1-1.5 g protein/kg 68-101 g total protein 25-30 mL/kg 4157-0733 total fluid mLs NUTRITION DIAGNOSIS: * Swallowing difficulty R/T dysphagia, h/o CVA, clinical condition as evidenced by seen by SKILLED NURSING FACILITIES PROFESSIONAL w/ rec for pureed moist texture w/ thin liquids. 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
[2020-04-14 12:00] VITALS: BP 121/63
--- NOTE | 2020-04-14 12:20 | General Progress Note ---
Subjective ROS Limited/Unobtainable: No Allergies: Coded Allergies: No Known Allergies (Unverified , 03/11/19) Objective Last 24 Hour Vital Signs Date Time Temp Pulse Resp B/P (MAP) Pulse Ox O2 Delivery O2 Flow Rate FiO2 04/14/20 08:00 98.1 85 18 131/68 (89) 100 85 04/14/20 08:00 Nasal Cannula 4.0 04/14/20 07:27 96 Nasal Cannula 4.0 36 04/14/20 04:00 98.1 89 20 147/75 (99) 100 82 04/14/20 04:00 Nasal Cannula 4.0 04/14/20 03:51 89 04/14/20 00:00 97.5 84 20 105/73 (84) 100 82 04/14/20 00:00 Nasal Cannula 4.0 04/13/20 23:29 80 04/13/20 20:00 Nasal Cannula 4.0 04/13/20 20:00 96.6 101 20 134/78 (96) 100 82 04/13/20 19:20 93 04/13/20 18:00 4.0 04/13/20 16:00 71 04/13/20 16:00 Nasal Cannula 4.0 04/13/20 16:00 97.3 82 20 107/48 (67) 100 82 Intake and Output 04/13/20 04/14/20 19:00 07:00 Intake Total 675 ml 720 ml Output Total 1400 ml 800 ml Balance -725 ml -80 ml Intake IV Total 675 ml 720 ml Output Urine Total 1400 ml 800 ml # Bowel Movements 1 2 Laboratory Tests 04/13/20 17:57: POC Whole Blood Glucose 155H 04/13/20 21:19: POC Whole Blood Glucose [Pending] 04/14/20 03:30: White Blood Count 12.0#H, Red Blood Count 3.15L, Hemoglobin 9.1L, Hematocrit 27.1L, Mean Corpuscular Volume 86, Mean Corpuscular Hemoglobin 29.0, Mean Corpuscular Hemoglobin Concent 33.7, Red Cell Distribution Width 13.2, Platelet Count 295, Mean Platelet Volume 5.7L, Neutrophils (%) (Auto) 82.7H, Lymphocytes (%) (Auto) 8.6L, Monocytes (%) (Auto) 7.0, Eosinophils (%) (Auto) 0.2, Basophils (%) (Auto) 1.5, Erythrocyte Sedimentation Rate 40H, Sodium Level 137, Potassium Level 3.9, Chloride Level 103, Carbon Dioxide Level 28, Anion Gap 6, Blood Urea Nitrogen 6L, Creatinine 0.6, Estimat Glomerular Filtration Rate > 60, Glucose Level 117H, Calcium Level 8.2L, Phosphorus Level 2.2L, Magnesium Level 1.7L, Total Bilirubin 0.3, Direct Bilirubin < 0.1, Aspartate Amino Transf (AST/SGOT) 34, Alanine Aminotransferase (ALT/SGPT) 28, Alkaline Phosphatase 75, C-Reactive Protein, Quantitative 3.1H, Total Protein 5.6L, Albumin 2.0L, Globulin 3.6, Albumin/Globulin Ratio 0.6L 04/14/20 05:07: POC Whole Blood Glucose 100 Height (Feet): 5 Height (Inches): 6.00 Weight (Pounds): 160 General Appearance: alert EENT: normal ENT inspection Neck: supple Cardiovascular: normal rate Respiratory/Chest: decreased breath sounds Abdomen: normal bowel sounds, non tender, soft Extremities: non-tender Assessment/Plan Status: stable, unchanged Assessment/Plan: 1. History of hypertension. 2. Diabetes. 3. CVA. 4. UTI. 5. Colitis. 6. Endometrial cancer. hgb 10 no recurrent gib passed swallow eval on oral diet still poor po intake calorie count may need PEG Nima Park MD Apr 14, 2020 12:20
--- NOTE | 2020-04-14 12:52 | Nephrology Progress Note ---
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 Low phosphorus and low magnesium corrected. Continue per consultants. Blood pressure remains stable. April 13: Electrolytes within normal limit. Renal parameters within normal limit. Continue per consultants. April 12: Electrolyte abnormalities noted and addressed. Continue per consultants Magnesium IV supplement as needed Potassium IV supplement as needed Phosphorus IV supplement as needed Monitor electrolytes Monitor hemoglobin hematocrit IV Protonix Adjust IV fluid Antibiotics per consultants Subjective ROS Limited/Unobtainable: No Constitutional: Reports: malaise, weakness Objective Objective Last 24 Hour Vital Signs Date Time Temp Pulse Resp B/P (MAP) Pulse Ox O2 Delivery O2 Flow Rate FiO2 04/14/20 08:00 98.1 85 18 131/68 (89) 100 85 04/14/20 08:00 Nasal Cannula 4.0 04/14/20 07:27 96 Nasal Cannula 4.0 36 04/14/20 04:00 98.1 89 20 147/75 (99) 100 82 04/14/20 04:00 Nasal Cannula 4.0 04/14/20 03:51 89 04/14/20 00:00 97.5 84 20 105/73 (84) 100 82 04/14/20 00:00 Nasal Cannula 4.0 04/13/20 23:29 80 04/13/20 20:00 Nasal Cannula 4.0 04/13/20 20:00 96.6 101 20 134/78 (96) 100 82 04/13/20 19:20 93 04/13/20 18:00 4.0 04/13/20 16:00 71 04/13/20 16:00 Nasal Cannula 4.0 04/13/20 16:00 97.3 82 20 107/48 (67) 100 82 Intake and Output 9/23/20 9/24/20 19:00 07:00 Intake Total 675 ml 720 ml Output Total 1400 ml 800 ml Balance -725 ml -80 ml Intake IV Total 675 ml 720 ml Output Urine Total 1400 ml 800 ml # Bowel Movements 1 2 Laboratory Tests 04/13/20 17:57: POC Whole Blood Glucose 155H 04/13/20 21:19: POC Whole Blood Glucose [Pending] 04/14/20 03:30: White Blood Count 12.0#H, Red Blood Count 3.15L, Hemoglobin 9.1L, Hematocrit 27.1L, Mean Corpuscular Volume 86, Mean Corpuscular Hemoglobin 29.0, Mean Corpuscular Hemoglobin Concent 33.7, Red Cell Distribution Width 13.2, Platelet Count 295, Mean Platelet Volume 5.7L, Neutrophils (%) (Auto) 82.7H, Lymphocytes (%) (Auto) 8.6L, Monocytes (%) (Auto) 7.0, Eosinophils (%) (Auto) 0.2, Basophils (%) (Auto) 1.5, Erythrocyte Sedimentation Rate 40H, Sodium Level 137, Potassium Level 3.9, Chloride Level 103, Carbon Dioxide Level 28, Anion Gap 6, Blood Urea Nitrogen 6L, Creatinine 0.6, Estimat Glomerular Filtration Rate > 60, Glucose Level 117H, Calcium Level 8.2L, Phosphorus Level 2.2L, Magnesium Level 1.7L, Total Bilirubin 0.3, Direct Bilirubin < 0.1, Aspartate Amino Transf (AST/SGOT) 34, Alanine Aminotransferase (ALT/SGPT) 28, Alkaline Phosphatase 75, C-Reactive Protein, Quantitative 3.1H, Total Protein 5.6L, Albumin 2.0L, Globulin 3.6, Albumin/Globulin Ratio 0.6L 04/14/20 05:07: POC Whole Blood Glucose 100 Height (Feet): 5 Height (Inches): 6.00 Weight (Pounds): 160 General Appearance: no apparent distress Cardiovascular: normal rate Respiratory/Chest: decreased breath sounds Abdomen: distended Steven Edwards MD Apr 14, 2020 12:52
--- NOTE | 2020-04-14 13:16 | Diagnostic Imaging Report ---
Indication: Dyspnea Technique: One view of the chest Comparison: 04/12/2020 Findings: There is a small band of atelectasis now present at the left lung base. Previously noted right-sided infiltrates have improved. The pleural spaces are clear. Heart size is normal Impression: Improved right lung infiltrates New left basilar atelectasis
--- NOTE | 2020-04-14 13:35 | Surgery Progress Note ---
Surgery Progress Note Subjective Additional Comments leukocytosis no n/v labs reviewed exam stable Objective Last 24 Hour Vital Signs Date Time Temp Pulse Resp B/P (MAP) Pulse Ox O2 Delivery O2 Flow Rate FiO2 04/14/20 08:00 98.1 85 18 131/68 (89) 100 85 04/14/20 08:00 Nasal Cannula 4.0 04/14/20 07:27 96 Nasal Cannula 4.0 36 04/14/20 04:00 98.1 89 20 147/75 (99) 100 82 04/14/20 04:00 Nasal Cannula 4.0 04/14/20 03:51 89 04/14/20 00:00 97.5 84 20 105/73 (84) 100 82 04/14/20 00:00 Nasal Cannula 4.0 04/13/20 23:29 80 04/13/20 20:00 Nasal Cannula 4.0 04/13/20 20:00 96.6 101 20 134/78 (96) 100 82 04/13/20 19:20 93 04/13/20 18:00 4.0 04/13/20 16:00 71 04/13/20 16:00 Nasal Cannula 4.0 04/13/20 16:00 97.3 82 20 107/48 (67) 100 82 I&O Intake and Output 04/13/20 04/14/20 19:00 07:00 Intake Total 675 ml 720 ml Output Total 1400 ml 800 ml Balance -725 ml -80 ml Intake IV Total 675 ml 720 ml Output Urine Total 1400 ml 800 ml # Bowel Movements 1 2 Cardiovascular: RSR Respiratory: clear Abdomen: soft, non-tender, present bowel sounds Extremities: no edema, no tenderness, no cyanosis Laboratory Tests Test 04/13/20 17:57 04/13/20 21:19 04/14/20 03:30 04/14/20 05:07 POC Whole Blood Glucose 155 MG/DL (74-106) H Pending 100 MG/DL (74-106) White Blood Count 12.0 K/UL (4.8-10.8) #H Red Blood Count 3.15 M/UL (4.20-5.40) L Hemoglobin 9.1 G/DL (12.0-16.0) L Hematocrit 27.1 % (37.0-47.0) L Mean Corpuscular Volume 86 FL (80-99) Mean Corpuscular Hemoglobin 29.0 PG (27.0-31.0) Mean Corpuscular Hemoglobin Concent 33.7 G/DL (32.0-36.0) Red Cell Distribution Width 13.2 % (11.6-14.8) Platelet Count 295 K/UL (150-450) Mean Platelet Volume 5.7 FL (6.5-10.1) L Neutrophils (%) (Auto) 82.7 % (45.0-75.0) H Lymphocytes (%) (Auto) 8.6 % (20.0-45.0) L Monocytes (%) (Auto) 7.0 % (1.0-10.0) Eosinophils (%) (Auto) 0.2 % (0.0-3.0) Basophils (%) (Auto) 1.5 % (0.0-2.0) Erythrocyte Sedimentation Rate 40 MM/HR (0-30) H Sodium Level 137 MMOL/L (136-145) Potassium Level 3.9 MMOL/L (3.5-5.1) Chloride Level 103 MMOL/L (98-107) Carbon Dioxide Level 28 MMOL/L (21-32) Anion Gap 6 mmol/L (5-15) Blood Urea Nitrogen 6 mg/dL (7-18) L Creatinine 0.6 MG/DL (0.55-1.30) Estimat Glomerular Filtration Rate > 60 mL/min (>60) Glucose Level 117 MG/DL (74-106) H Calcium Level 8.2 MG/DL (8.5-10.1) L Phosphorus Level 2.2 MG/DL (2.5-4.9) L Magnesium Level 1.7 MG/DL (1.8-2.4) L Total Bilirubin 0.3 MG/DL (0.2-1.0) Direct Bilirubin < 0.1 MG/DL (0.0-0.3) Aspartate Amino Transf (AST/SGOT) 34 U/L (15-37) Alanine Aminotransferase (ALT/SGPT) 28 U/L (12-78) Alkaline Phosphatase 75 U/L (46-116) C-Reactive Protein, Quantitative 3.1 mg/dL (0.00-0.90) H Total Protein 5.6 G/DL (6.4-8.2) L Albumin 2.0 G/DL (3.4-5.0) L Globulin 3.6 g/dL Albumin/Globulin Ratio 0.6 (1.0-2.7) L Plan Problems: (1) Hematuria (2) Rectal bleeding Assessment & Plan: [age]-year-old female identified to have rectal bleeding on admission. GI aware surgery aware no active bleeding at this time hemoglobin noted. Transfuse PRBC as needed. Pending scope consideration. passed swallow no bleeding on diet may need peg as per GI cont diet supplements added for wound care DAILY ESTIMATED NEEDS: Needs based on Obesity, cardiac/ 67.6kg abw 22-27 kcals/kg 2927-2279 total kcals 1-1.5 g protein/kg 68-101 g total protein 25-30 mL/kg 7463-6523 total fluid mLs NUTRITION DIAGNOSIS: * Swallowing difficulty R/T dysphagia, h/o CVA, clinical condition as evidenced by seen by REPAIRER AND CHECKER w/ rec for pureed moist texture w/ thin liquids. 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 CURRENT DIET:[facility] MED, pureed moist w/ thin liquids PO DIET RECOMMENDATIONS: Liberalized REGULAR w/ poor PO ([facility] MED+LOW NA w/ PO intake >50%) ADDITIONAL RECOMMENDATIONS: * Per SNF: HT=64" HP=355pct (04/05/20) -> rec daily calibrated bedscale wt, monitor trend Possible wt loss of 68 lbs/29% in 13 months * W/ poor PO intake, add Glucerna TID w/ meals * Wound healing: Add MVI x 1, Vit C 500mg BID, ZnSO4 220mg QD x 10 days Woody (QD for now- increase to BID w/ good acceptance) added to tray * Monitor lytes, replete as needed (low k and mag) (3) Hemorrhagic shock (4) Acute CVA (cerebrovascular accident) (5) Septic shock (6) Anemia (7) Sepsis (8) Altered mental status (9) Atrial fibrillation with RVR (10) COVID-19 Assessment & Plan: ++ as per ID and pulm cxr noted (11) History of CVA (cerebrovascular accident) (12) Decubitus skin ulcer Assessment & Plan: Patient identified on admission to have a 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 apply therahoney to areas of slou gh. apply mositure barrier paste on the periwound. cover with optifoam dressing. change Q3D and PRN. Apply cavilon on both heels& malleoli. Cover each site with optifoam dressing. Change Q7D and PRN. Elian Ren Apr 14, 2020 13:35
--- NOTE | 2020-04-14 13:56 | Cardiology Report ---
APPROVED REPORT EKG Measurement Heart [id number] IA [id number] <Conclusion> Sinus rhythm with short IA T wave abnormality, consider anterior ischemia Abnormal ECG
--- NOTE | 2020-04-14 14:04 | Cardiology Report ---
APPROVED REPORT EKG Measurement Heart [id number] <Conclusion> Sinus tachycardia Nonspecific ST and T wave abnormality Abnormal ECG
--- NOTE | 2020-04-14 14:36 | Cardiology Report ---
APPROVED REPORT EXAM: Two-dimensional and M-mode echocardiogram with Doppler and color Doppler. INDICATION Left ventricular fuction M-Mode DIMENSIONS IVSd0.7 (0.7-1.1cm)Left Atrium (MM)1.9 (1.6-4.0cm) LVDd3.4 (3.5-5.6cm)Aortic Root2.9 (2.0-3.7cm) PWd0.8 (0.7-1.1cm)Aortic Cusp Exc.1.9 (1.5-2.0cm) IVSs1.1 cmEPSS0.2 (>1.0cm) LVDs2.1 (2.5-4.0cm) PWs1.2 cm <Conclusion> Technically difficult study due to poor acoustic windows. Normal left ventricular chamber size, systolic function and wall motion to extent visualized. Left ventricular ejection fraction estimated to be 55 %. No evidence of left ventricular hypertrophy. Anterior Echo-free space, may be due to pericardial fat or effusion. All other cardiac chamber sizes are within normal limits. Focal aortic valve sclerosis with adequate cusp excursion. Thickened mitral valve leaflets with normal excursion. Mitral annulus and aortic root calcification. Pulmonic valve not well visualized. Normal tricuspid valve structure. IVC is normal in size with physiological collapse. A color flow and spectral Doppler study was performed and revealed: No aortic regurgitation. No mitral regurgitation. Mitral diastolic velocities suggest mild left ventricular diastolic dysfunction (Grade I). Trace tricuspid regurgitation. Tricuspid systolic velocities suggests peak right ventricular systolic pressure of 9 mmHg. Trace pulmonic regurgitation present.
[2020-04-14 16:00] VITALS: BP 135/89
--- NOTE | 2020-04-14 16:56 | NUR ---
CASE MANAGEMENT: REVIEW 04/14/2020 SI:SEPSIS. VS: T 98.1 HR 85 RR 18 B/P 131/68 SATS 100% ON 4L/NC LABS: WBC 12 BUN 6 GLU 117 CA 8.2 PHOS 2.2 MG 1.7 CRP 3.1 IS:DEXTROSE W/ ELECTROLYTES @ 30 ML/HR LINEZOLID PO Q12H DECADRON PO QD INSULIN ASPART SUBQ AC/HS CEFEPIME IV Q12H REMDESIVIR IV Q24H (10/23) SDU DCP: SHIV AMBRIZ PLAN OF CARE: CXR VENOUS DUPLEX
--- NOTE | 2020-04-14 17:22 | Internal Med Progress Note ---
Subjective Date of Service: Apr 14, 2020 Physician Name Tariq Murphy Attending Physician Dewayne Mendoza MD Current Medications Medications (Trade) Dose Ordered Sig/Jere Route PRN Reason Start Time Stop Time Status Last Admin Dose Admin Acetaminophen (Tylenol) 650 mg Q4H PRN ORAL fever 04/08/20 19:00 05/08/20 18:59 04/12/20 00:27 Ascorbic Acid (Vitamin C) 500 mg TWICE A DAY ORAL 04/14/20 18:00 05/14/20 17:59 Barium Sulfate (Varibar Honey) 250 ml NOW PRN MC RAD 04/12/20 13:15 04/15/20 13:04 Barium Sulfate (Varibar [place]) 240 ml NOW PRN MC RAD 04/12/20 13:15 04/15/20 13:04 Barium Sulfate (Varibar Pudding) 230 ml NOW PRN MC RAD 04/12/20 13:15 04/15/20 13:04 Barium Sulfate (Varibar Thin Liquid powder) 148 gm NOW PRN MC RAD 04/12/20 13:15 04/15/20 13:04 Cefepime HCl 2 gm/ Dextrose 110 ml @ 220 mls/hr Q12H IV 04/09/20 21:00 04/16/20 20:59 04/14/20 09:11 Chlorhexidine Gluconate (Geno-Hex 2%) 1 applic DAILY@2000 TOPIC 04/08/20 20:00 07/07/20 19:59 04/13/20 21:10 Dexamethasone (Decadron) 6 mg DAILY ORAL 04/12/20 15:15 04/21/20 09:01 04/14/20 09:09 Dextrose (Dextrose 50%) 25 ml Q30M PRN IV Hypoglycemia 04/09/20 07:45 07/08/20 07:44 04/11/20 16:12 Dextrose (Dextrose 50%) 50 ml Q30M PRN IV Hypoglycemia 04/09/20 07:45 07/08/20 07:44 Dextrose/ Electrolytes 1,000 ml @ 30 mls/hr Q24H IV 04/08/20 22:30 05/08/20 22:29 04/13/20 18:17 Insulin Aspart (NovoLOG) BEFORE MEALS AND HS SUBQ 04/09/20 11:30 07/08/20 11:29 04/10/20 12:08 Linezolid (Zyvox) 600 mg EVERY 12 HOURS ORAL 04/12/20 15:00 04/17/20 14:59 04/14/20 09:09 Metoprolol Tartrate (Lopressor) 5 mg Q1H PRN IVP spb more than 120 04/08/20 19:00 07/07/20 18:59 Multivitamins (Multivitamins) 1 tab DAILY ORAL 04/15/20 09:00 05/15/20 08:59 Ondansetron HCl (Zofran) 4 mg Q6H PRN IVP Nausea & Vomiting 04/08/20 19:00 05/08/20 18:59 Pantoprazole (Protonix) 40 mg EVERY 12 HOURS IVP 04/10/20 21:00 05/10/20 20:59 04/14/20 09:09 Polyethylene Glycol (Miralax) 17 gm BEDTIME ORAL 04/09/20 21:00 05/09/20 20:59 04/13/20 21:11 Polyethylene Glycol (Miralax) 17 gm DAILYPRN PRN ORAL Constipation 04/08/20 19:00 05/08/20 18:59 Remdesivir 100 mg/ Sodium Chloride 250 ml @ 250 mls/hr Q24H IV 04/14/20 22:00 04/17/20 22:59 Temazepam (Restoril) 15 mg HSPRN PRN ORAL Insomnia 04/08/20 19:00 04/15/20 18:59 Zinc Sulfate (Zinc Sulfate) 220 mg DAILY ORAL 04/15/20 09:00 04/25/20 08:59 Allergies: Coded Allergies: No Known Allergies (Unverified , 03/11/19) ROS Limited/Unobtainable: Yes Subjective 64 YO F with inoperable uterine cancer admitted with tachycardia. Now atrial fibrillation with rapid ventricular rate. Also COVID 19 positive. Cover for Int Jerome-DR Mendoza. Step down unit Objective Last Vital Signs Date Time Temp Pulse Resp B/P (MAP) Pulse Ox O2 Delivery O2 Flow Rate FiO2 04/14/20 08:00 98.1 85 18 131/68 (89) 100 85 04/14/20 08:00 Nasal Cannula 4.0 04/14/20 07:27 36 Laboratory Tests Test 04/13/20 17:57 04/13/20 21:19 04/14/20 03:30 04/14/20 05:07 POC Whole Blood Glucose 155 MG/DL (74-106) H Pending 100 MG/DL (74-106) White Blood Count 12.0 K/UL (4.8-10.8) #H Red Blood Count 3.15 M/UL (4.20-5.40) L Hemoglobin 9.1 G/DL (12.0-16.0) L Hematocrit 27.1 % (37.0-47.0) L Mean Corpuscular Volume 86 FL (80-99) Mean Corpuscular Hemoglobin 29.0 PG (27.0-31.0) Mean Corpuscular Hemoglobin Concent 33.7 G/DL (32.0-36.0) Red Cell Distribution Width 13.2 % (11.6-14.8) Platelet Count 295 K/UL (150-450) Mean Platelet Volume 5.7 FL (6.5-10.1) L Neutrophils (%) (Auto) 82.7 % (45.0-75.0) H Lymphocytes (%) (Auto) 8.6 % (20.0-45.0) L Monocytes (%) (Auto) 7.0 % (1.0-10.0) Eosinophils (%) (Auto) 0.2 % (0.0-3.0) Basophils (%) (Auto) 1.5 % (0.0-2.0) Erythrocyte Sedimentation Rate 40 MM/HR (0-30) H Sodium Level 137 MMOL/L (136-145) Potassium Level 3.9 MMOL/L (3.5-5.1) Chloride Level 103 MMOL/L (98-107) Carbon Dioxide Level 28 MMOL/L (21-32) Anion Gap 6 mmol/L (5-15) Blood Urea Nitrogen 6 mg/dL (7-18) L Creatinine 0.6 MG/DL (0.55-1.30) Estimat Glomerular Filtration Rate > 60 mL/min (>60) Glucose Level 117 MG/DL (74-106) H Calcium Level 8.2 MG/DL (8.5-10.1) L Phosphorus Level 2.2 MG/DL (2.5-4.9) L Magnesium Level 1.7 MG/DL (1.8-2.4) L Total Bilirubin 0.3 MG/DL (0.2-1.0) Direct Bilirubin < 0.1 MG/DL (0.0-0.3) Aspartate Amino Transf (AST/SGOT) 34 U/L (15-37) Alanine Aminotransferase (ALT/SGPT) 28 U/L (12-78) Alkaline Phosphatase 75 U/L (46-116) C-Reactive Protein, Quantitative 3.1 mg/dL (0.00-0.90) H Total Protein 5.6 G/DL (6.4-8.2) L Albumin 2.0 G/DL (3.4-5.0) L Globulin 3.6 g/dL Albumin/Globulin Ratio 0.6 (1.0-2.7) L Microbiology Date/Time Source Procedure Growth Status 04/12/20 19:30 Blood Blood Culture - Preliminary NO GROWTH AFTER 24 HOURS Resulted 04/12/20 19:15 Blood Blood Culture - Preliminary NO GROWTH AFTER 24 HOURS Resulted Intake and Output 04/13/20 04/14/20 19:00 07:00 Intake Total 675 ml 720 ml Output Total 1400 ml 800 ml Balance -725 ml -80 ml Intake IV Total 675 ml 720 ml Output Urine Total 1400 ml 800 ml # Bowel Movements 1 2 Objective PHYSICAL EXAMINATION: GENERAL: The patient awake, responsive, however altered and confused. The patient appears to be paler and chronically-ill appearing. HEAD AND NECK: Pupils are equal and reactive to light. Extraocular movements are intact. Neck was supple. No JVD. LUNGS: Bilateral air entry. Decreased air in the bases. HEART: S1, S2. Tachycardic, irregular. No murmur or gallop was appreciated. ABDOMEN: Soft, nondistended. Tenderness on the lower abdominal area. Mildly obese. EXTREMITIES: No cyanosis, clubbing, or edema. GENITOURINARY: The patient noted to have Lowe catheter with dark red urine collection in a Lowe catheter. NEUROLOGIC: Cranial nerves II through XII grossly intact. The patient moving all extremities equally. Sensory is intact. Gait was not able to assess due to the patient's status. RECTAL: Refused and deferred. PSYCHIATRIC: Mood and affect, unable to obtain due to the patient's status. Assessment/Plan Assessment/Plan ASSESSMENT: 1. COVID-19 pneumonia. 2. Altered mental status, most likely secondary to toxic metabolic encephalopathy. 3. Atrial fibrillation with rapid ventricular rate. 4. Anemia most likely secondary to acute blood loss. 5. Sepsis secondary to urinary tract infection as well as pneumonia. 6. Vaginal bleeding. 7. UTI=VRE 8. History of diabetes type 2. 9. Inoperable endometrial adenocarcinoma, status post brachytherapy. 10. Hypertension. 11. History of lacunar infarction. PLAN: 1. Admit the patient to ICU. 2. Dr. Buitrago=Pulmonary/Critical Care 3. Dr. Wale Wu = Cardiology. 4. antibiotic=vancomycin linezolid and cefepime. 5. Admit to droplet isolation [place] [id number] room. 6. Code status =Full Code. 7. DVT prophylaxis SCD. 8. S/P transfusion 2 units of packed RBC. 9. Continue Levophed as needed to support the blood pressure 10. ID=Tariq Márquez MD Apr 14, 2020 17:22
[2020-04-14] MEDS: Ascorbic Acid 500mg tab ORAL SCH (18:21)
--- NOTE | 2020-04-14 19:20 | NUR ---
HAND-OFF: Report given to Sadie BOND.
--- NOTE | 2020-04-14 19:21 | NUR ---
NURSE NOTES: Received report from VARUN Gamez. Pt. A/Ox1. CUONG. Alert but irritable/anxious affect. Unable to make needs known. 5-lead EKG shows ST at 120 bpm. Pt observed to be on 4L saturating at 93% O2. Right femoral TLC patent and intact. Left AC patent running D5 1/2 NS with 20 mEq KCl at 30 mL/hr. Offered patient food and hydration; refuses to eat but encouraged her to eat as tolerated. Lowe draining well to gravity. Bed kept in lowest and locked position. Bed alarm on and call light within reach. Will continue monitoring.
--- NOTE | 2020-04-14 19:59 | Cardiology Progress Note ---
Assessment/Plan Assessment/Plan hs of hypertension, diabetes previous CVA, COVID infection Sinus tachy (incorrect diagnosis of afib with tachycardia) hypotension, a/ hemorraghic shock vaginal bleeding. anemia s/p prbc tx pt in covid isolation exam deferred tele personally reviewed no afib just sinus no fever abx supportive care keep on tele monitoring bp seem ok has black stool will need dvt ppx in prudence settign of covid will use lovenox if develops anemi with dc hgb seen stable over prudence past few days Subjective ROS Limited/Unobtainable: Yes Subjective covid pt in soloalion per rn: ptient resting in bed w/ eyes closed, no s/s of acute distress. Objective Last 24 Hour Vital Signs Date Time Temp Pulse Resp B/P (MAP) Pulse Ox O2 Delivery O2 Flow Rate FiO2 04/14/20 19:42 95 Nasal Cannula 2.0 28 04/14/20 16:00 96 04/14/20 16:00 Nasal Cannula 4.0 04/14/20 16:00 98.1 97 17 135/89 (104) 99 85 04/14/20 12:00 108 04/14/20 12:00 98.1 75 20 121/63 (82) 100 85 04/14/20 12:00 Nasal Cannula 4.0 04/14/20 08:00 98.1 85 18 131/68 (89) 100 85 04/14/20 08:00 89 04/14/20 08:00 Nasal Cannula 4.0 04/14/20 07:27 96 Nasal Cannula 4.0 36 04/14/20 04:00 98.1 89 20 147/75 (99) 100 82 04/14/20 04:00 Nasal Cannula 4.0 04/14/20 03:51 89 04/14/20 00:00 97.5 84 20 105/73 (84) 100 82 04/14/20 00:00 Nasal Cannula 4.0 04/13/20 23:29 80 04/13/20 20:00 Nasal Cannula 4.0 04/13/20 20:00 96.6 101 20 134/78 (96) 100 82 Intake and Output 04/13/20 04/14/20 18:59 06:59 Intake Total 675 ml 690 ml Output Total 1400 ml 800 ml Balance -725 ml -110 ml IV Total 675 ml 690 ml Output Urine Total 1400 ml 800 ml # Bowel Movements 1 2 Laboratory Tests Test 04/13/20 21:19 04/14/20 03:30 04/14/20 05:07 POC Whole Blood Glucose Pending 100 MG/DL (74-106) White Blood Count 12.0 K/UL (4.8-10.8) #H Red Blood Count 3.15 M/UL (4.20-5.40) L Hemoglobin 9.1 G/DL (12.0-16.0) L Hematocrit 27.1 % (37.0-47.0) L Mean Corpuscular Volume 86 FL (80-99) Mean Corpuscular Hemoglobin 29.0 PG (27.0-31.0) Mean Corpuscular Hemoglobin Concent 33.7 G/DL (32.0-36.0) Red Cell Distribution Width 13.2 % (11.6-14.8) Platelet Count 295 K/UL (150-450) Mean Platelet Volume 5.7 FL (6.5-10.1) L Neutrophils (%) (Auto) 82.7 % (45.0-75.0) H Lymphocytes (%) (Auto) 8.6 % (20.0-45.0) L Monocytes (%) (Auto) 7.0 % (1.0-10.0) Eosinophils (%) (Auto) 0.2 % (0.0-3.0) Basophils (%) (Auto) 1.5 % (0.0-2.0) Erythrocyte Sedimentation Rate 40 MM/HR (0-30) H Sodium Level 137 MMOL/L (136-145) Potassium Level 3.9 MMOL/L (3.5-5.1) Chloride Level 103 MMOL/L (98-107) Carbon Dioxide Level 28 MMOL/L (21-32) Anion Gap 6 mmol/L (5-15) Blood Urea Nitrogen 6 mg/dL (7-18) L Creatinine 0.6 MG/DL (0.55-1.30) Estimat Glomerular Filtration Rate > 60 mL/min (>60) Glucose Level 117 MG/DL (74-106) H Calcium Level 8.2 MG/DL (8.5-10.1) L Phosphorus Level 2.2 MG/DL (2.5-4.9) L Magnesium Level 1.7 MG/DL (1.8-2.4) L Total Bilirubin 0.3 MG/DL (0.2-1.0) Direct Bilirubin < 0.1 MG/DL (0.0-0.3) Aspartate Amino Transf (AST/SGOT) 34 U/L (15-37) Alanine Aminotransferase (ALT/SGPT) 28 U/L (12-78) Alkaline Phosphatase 75 U/L (46-116) C-Reactive Protein, Quantitative 3.1 mg/dL (0.00-0.90) H Total Protein 5.6 G/DL (6.4-8.2) L Albumin 2.0 G/DL (3.4-5.0) L Globulin 3.6 g/dL Albumin/Globulin Ratio 0.6 (1.0-2.7) L Microbiology Date/Time Source Procedure Growth Status 04/12/20 19:30 Blood Blood Culture - Preliminary NO GROWTH AFTER 24 HOURS Resulted 04/12/20 19:15 Blood Blood Culture - Preliminary NO GROWTH AFTER 24 HOURS Resulted Objective exam deferred as in isolation per drsmoras note LUNGS: Bilateral air entry. Decreased air in the bases. HEART: S1, S2. Tachycardic, irregular. No murmur or gallop was appreciated. ABDOMEN: Soft, nondistended. Tenderness on the lower abdominal area. Mildly obese. EXTREMITIES: No cyanosis, clubbing, or edema. GENITOURINARY: The patient noted to have Lowe catheter with dark red urine collection in a Lowe catheter. Wale Wu MD Apr 14, 2020 19:59
[2020-04-14 20:00] VITALS: BP 110/82
[2020-04-14] MEDS: Enoxaparin 40mg Inj SUBQ SCH (20:00)
--- NOTE | 2020-04-14 20:00 | NUR ---
Dr. Wu at bedside. Made aware of Sinus [place] and labs despite not respiratory or cardiac distress. Orders for Lovenox despite history of bleeding. made aware. Will continue monitoring.
[2020-04-14] MEDS: Miralax 17gm pkt ORAL SCH (20:29)
[2020-04-14] MEDS: Dyna-Hex 2% Top Sol 2oz TOPIC SCH (20:29)
--- NOTE | 2020-04-14 21:30 | NUR ---
NURSE NOTES: Left message for Chava, electrical/instrument technician, in regards to order, per Dr. Hughes. Says he will perform EEG in AM.
[2020-04-14] MEDS: Maintenance Dose:Remdesivir 100mg/NS 230ml x 4 Doses IV SCH ×2 (21:44)
[2020-04-14] MEDS: D5 1/2NS w/KCl 20mEq 1,000 ML IV SCH (21:45)
[2020-04-15] VITALS: BP 107/57
--- NOTE | 2020-04-15 01:44 | Consultation ---
DATE OF CONSULTATION: 04/14/2020 CONSULTING PHYSICIAN: Ashvin Hughes M.D. ATTENDING PHYSICIAN: Dewayne Mendoza M.D. CHIEF COMPLAINT: This is the second [facility] admission for this woman who was seen in February [address] Luc Anderson for a stroke. The patient at that time had a left lateral deep white matter of the lateral ventricles. In addition, multiple bilateral cortical infarcts were also seen on the MRI scan of the brain. She was started on Plavix 75 mg on physical and occupational therapy. The patient was discharged and admitted again on 04/08/2020 where she was transferred from a nursing facility and she was found to have irregular heartbeat with hypotension, tachycardia, and vaginal bleeding. I was asked to see her because of changes in her mental status. The patient has a history of inoperable endometrial adenocarcinoma with brachytherapy in November at [facility]. She also has diabetes type 2, hypertension, and chronic lacunar infarction in both basal ganglia. She also has a prior history of UTI, presented to the hospital from a nursing facility after she was noted to be COVID-19 positive three days prior to admission. She was found to have irregular tachycardia with a heartbeat of 160 and vaginal bleeding. The patient was given IV fluids. Her pressure improved, although she was persistently tachycardic. She was noted to have altered mental status. Her baseline was "awake and oriented x3" and she could take care of herself without any assistance. The patient was admitted in the ER with atrial fibrillation with rapid ventricular rate as well as hypertension and vaginal bleeding. Her initial CBC revealed hemoglobin of 7.1, normal white count, and normal platelet count. Her ProTime was a little high at 12.3. Her INR was 1.1. D-dimer was 0.72. Her aPTT was 25. The patient's initial chemistries on 04/09/2020 revealed a sodium of 147 and glucose of 167. Her lactic acid on 04/08/2020 was 2. Osmolality on 04/08/2020 was 303. She had a low calcium on 04/09/2020. AST is 73. The troponin on 04/09/2020 was a little elevated at 0.140. The albumin was normal. ALT and alkaline phosphatase were normal. CPK was normal. Free T4 was a little high at 1.59. Her urinalysis revealed urinary tract infection with urine WBCs too numerous to count, many bacteria, 4+ protein, 5+ urine blood, and 1+ serum ketones. Urine osmolality was 497, which was high. The arterial blood gas on 04/12/2020 revealed a low pO2 of 43.7, oxygen saturation 76.7, pH was normal, pCO2 was normal. The patient's white count did go up after admission as high as 17,000. The patient had an initial EKG that revealed sinus tachycardia with nonspecific ST and T-wave abnormality on 04/08/2020. The patient's EKG on 04/09/2020 revealed sinus rhythm with short NE interval, T-wave abnormality, consider anterior ischemia. The patient had a 2D echocardiogram on 04/09/2020. Her ejection fraction was 55% with normal left ventricular chamber size, systolic function, and wall motion was normal. She had mitral annulus and aortic root calcification. The IVC was normal in size with physiological collapse. The patient's chest x-ray on 04/08/2020 revealed mild diffuse peribronchial thickening and absence of airspace consolidation. The chest x-ray on 04/12/2020 revealed bilateral infiltrates developing from 04/08/2020, likely on the basis of pneumonia. Chest x-ray on 04/14/2020 revealed improved right lung infiltrates. The patient had abdomen and pelvis CT on 04/08/2020, which revealed unremarkable liver and gallbladder. She had a left adrenal 1.3 cm nodularity. The left superior renal pole was ill-defined with a mild hyperdensity. The pelvis revealed a previous appendectomy. No IV contrast given. She had a calcified fibroid uterus. She had prominent mild wall thickening suggesting of colitis. The urine culture revealed enterococcus. VRE culture revealed enterococcus. Urine culture on 04/08/2020 also revealed Proteus mirabilis. Blood culture revealed Staph aureus and Staph hominis from 04/08/2020. Blood cultures on 04/12/2020 were no growth after 24 hours. The patient was started on Maxipime, remdesivir 100 mg, chlorhexidine, Decadron 6 mg oral daily, insulin sliding scale, metoprolol or Lopressor, Zofran, Protonix, temazepam, Restoril p.r.n. insomnia, Varibar honey and nectar and thin liquid powder and pudding, and zinc sulfate 220 mg given daily. Fluids were given. She is also on magnesium sulfate 1 g every hour, that was discontinued. The patient had pneumonia, gram-positive bacteremia with likely contaminant. The patient today will be given Zyvox #3 for bacteremia and VRE UTI and cefepime. FAMILY HISTORY: There is no family history of neurologic disease available. PAST MEDICAL HISTORY/PAST MEDICAL ILLNESSES: 1. Hyperlipidemia. 2. AODM type 2. 3. Hypertension. 4. Urinary tract infection. 5. Inoperable endometrial adenocarcinoma, see above. 6. 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 7. Cerebrovascular disease. MEDICATIONS: At the custodial are aspirin, atorvastatin, Plavix, docusate, melatonin, senna, Tylenol No. 3, Voltaren Gel, and Zofran. ALLERGIES: No known drug allergies. HABITS: There are no habits. There is no current history of smoking, alcohol, or drugs. PHYSICAL EXAMINATION: GENERAL: The patient is a well-developed, obese woman, lying in bed, lethargic, able to raise her head, answer to her name. VITAL SIGNS: The blood pressure is 131/68, temperature is 98.1 degrees, and pulse 85 and regular. MENTAL STATUS EXAMINATION: The patient is lethargic. She would not answer to the date. She would answer to her name, spoken speech significantly decreased. The rest of the physical examination is deferred because of her COVID positivity. IMPRESSION: The patient has a history of cerebrovascular disease with multiple small vessel disease and probably a large vessel disease, stroke in the basal ganglia and brainstem and the stroke is most likely related to her risk factors for cerebrovascular disease and not COVID and superimposed on her altered mental status is multifocal metabolic encephalopathy related to pneumonia, urinary tract infection, and possibly bacteremia as well as slight elevation of her osmolarity. The abnormal blood gas may be due to venous blood given the normal pH and pCO2. The pO2 is very low. It is not consistent with her pH. The patient's free T4 was 1.59. TSH is not available. The patient also has anemia, which will reduce her oxygen carrying capacity. Therefore, all of the above can cause changes in her mental status superimposed on cerebrovascular disease. The patient will need continuing treatment. I would not expect her to recover immediately, it may take weeks or even a couple of months to return to baseline given her metabolic problems. As far as obtaining a CT scan of the brain is concerned, since she is COVID positive, it probably will not be done as well, but I do not think she has seizures. We can try to get an EEG on her to rule out a nonconvulsive status epilepticus, which I think is unlikely. PLAN: 1. EEG. 2. B12 and methylmalonic acid level. Thank you for this interesting case, Dr. Mendoza. Ashvin Hughes MD DR: Michael JOB#: [id number] CC: YOHAN
[2020-04-15 04:00] VITALS: BP 112/62
[2020-04-15 04:20] LABS: BASOPHILS % (AUTO) 0.8 % (0.0-2.0); EOSINOPHILS % (AUTO) 0.8 % (0.0-3.0); HEMATOCRIT 27.6 % (37.0-47.0); HEMOGLOBIN 9.3 G/DL (12.0-16.0); MEAN CORPUSCULAR VOLUME 85 FL (80-99); MONOCYTES % (AUTO) 7.7 % (1.0-10.0); NEUTROPHILS % (AUTO) 80.8 % (45.0-75.0); PLATELET COUNT 318 K/UL (150-450); RED BLOOD COUNT 3.23 M/UL (4.20-5.40); RED CELL DISTRIBUTION WIDTH 13.3 % (11.6-14.8); WHITE BLOOD COUNT 12.2 K/UL (4.8-10.8)
[2020-04-15 04:44] LABS: AMMONIA 15 umol/L (11-32)
[2020-04-15 04:53] LABS: PHOSPHORUS 2.5 MG/DL (2.5-4.9)
[2020-04-15 04:57] LABS: ALANINE AMINOTRANSFERASE 22 U/L (12-78); ALBUMIN 2.1 G/DL (3.4-5.0); ALBUMIN/GLOBULIN RATIO 0.7 (1.0-2.7); ALKALINE PHOSPHATASE 86 U/L (46-116); ANION GAP 9 mmol/L (5-15); ASPARTATE AMINO TRANSFERASE 22 U/L (15-37); BILIRUBIN,TOTAL 0.4 MG/DL (0.2-1.0); BLOOD UREA NITROGEN 7 mg/dL (7-18); CALCIUM 7.9 MG/DL (8.5-10.1); CARBON DIOXIDE 24 MMOL/L (21-32); CHLORIDE 105 MMOL/L (98-107); CREATININE 0.5 MG/DL (0.55-1.30); POTASSIUM 3.7 MMOL/L (3.5-5.1); SODIUM 138 MMOL/L (136-145)
--- NOTE | 2020-04-15 05:25 | NUR ---
NURSE NOTES: Pt transferred to Telemetry 220-2 in stable condition.
--- NOTE | 2020-04-15 05:30 | NUR ---
NURSE HAND-OFF REPORT: Important Events on Shift: ST, EEG pending for AM Patient Status: Stable Diet: CCHO Thin Pending Orders: N Pending Results/Labs: Y Pending MD notification: N Latest Vital Signs: Temperature 98.7 , Pulse 102 , B/P 112 /62 , Respiratory Rate 20 , O2 SAT 95 , Nasal Cannula, O2 Flow Rate 4.0 . Vital Sign Comment: EKG Rhythm: Sinus Rhythm Rhythm change?: N MD Notified?: - MD Response: Latest Ortega Fall Score: 55 Fall Risk: High Risk Safety Measures: Call light Within Reach, Bed Alarm Zone 1, Side Rails Side Rails x3, Bed position Low and Locked. Fall Precautions: Yellow Socks Yellow Gown Door Sign Patient Fall Education Report given to VARUN Nolen.
--- NOTE | 2020-04-15 05:39 | NUR ---
NURSE NOTES: Received pt from VARUN Benavides. Pt awake, alert, and talkative. Bed in lowest position. Call light within reach. Will continue to monitor.
[2020-04-15] MEDS: NovoLOG Insulin Flexpen SUBQ SCH ×4 (06:30→20:58)
--- NOTE | 2020-04-15 07:21 | NUR ---
NURSE HAND-OFF REPORT: Important Events on Shift: Pt just transferred to tele Patient Status: stable Diet: ccho thin liquids Pending Orders: y Pending Results/Labs:y Pending MD notification:y Latest Vital Signs: Temperature 98.7 , Pulse 102 , B/P 112 /62 , Respiratory Rate 20 , O2 SAT 95 , Nasal Cannula, O2 Flow Rate 4.0 . Vital Sign Comment: stable EKG Rhythm: Sinus Rhythm Rhythm change?: N MD Notified?: - MD Response: Latest Ortega Fall Score: 55 Fall Risk: High Risk Safety Measures: Call light Within Reach, Bed Alarm Zone 1, Side Rails Side Rails x3, Bed position Low and Locked. Fall Precautions: y Yellow Socks y Yellow Gown y Door Sign y Patient Fall Education y Report given to VARUN Childers.
[2020-04-15 08:00] VITALS: BP 133/79
--- NOTE | 2020-04-15 08:00 | NUR ---
NURSE NOTES: Pt is awake, lethargic, only responds after continued loud voice, O x name only, breathing easily on 4 lpm nasal cannula, denies SOB and denies pain at this time. Vital signs stable with SR at 93 on monitor. IV access right Fem triple lumen with D5 1/2 NS + 20K running @ 30 ml/hr into one lumen. Other lumen flushed with 10 ml NS and locked. P 200 mattress on bed and running. Lowe cath in place, patent, patent, draining clear yellow urine into collection bag. Bed left in low position, side rails up x 3 and call light left near pt's hand.
[2020-04-15] MEDS: Enoxaparin 40mg Inj SUBQ SCH (09:00)
[2020-04-15] MEDS: Cefepime HCl 2 GM in D5W 110 ML IV SCH ×2 (09:00→20:42)
[2020-04-15] MEDS: Pantoprazole Inj IVP SCH ×2 (09:00→20:29)
[2020-04-15] MEDS: Ascorbic Acid 500mg tab ORAL SCH ×2 (09:00→18:00)
[2020-04-15] MEDS: Zinc Sulfate 220mg ORAL SCH (09:00)
--- NOTE | 2020-04-15 10:07 | NUR ---
RADIOLOGY DEPT., CHEST X-RAY DONE.-P.DYE
--- NOTE | 2020-04-15 10:19 | Infectious Diseases Prog Note ---
Assessment/Plan Assessment: Septic Shock- SP COVID19 pneumonia- on 2l NC> hypoxic on ABG, now at 4L NC -04/12 CXR: Bilateral infiltrates, developing since 04/08/2020, likely on the basis of pneumonia. -04/08 CXR: Mild diffuse peribronchial thickening in the absence of airspace consolidation, which is nonspecific but can be seen with infectious/inflammatory airways disease in the appropriate clinical context. rapid covid pcr + UTI -04/09 ucx >100k VRE (E. faecium); S linezolid -04/08 u/a wbc tnct, nit neg, leuk +3; ucx <10k P, mirabilis (S Ceftriaxone, Zosyn), >100k gamma hemolytic strep Gram positive bacteremia- likely contaminant -04/08 Bcx 1/4 S. hominis, 2/4 S. auricularis ; 04/10 Bcx NGTD Low grade fever, SP No leukocytosis Vaginal bleeding -CT abd/p wo: Study limited due to lack of IV contrast. Pulmonary findings could represent multifocal pneumonia or aspiration.These findings could also represent viral pneumonia, although this is not highly specific pattern. Promi nent rectal stool burden with mild wall thickening could represent stercoral colitis in the proper context. Otherwise, diffuse large colonic stool burden could be a cause for pain. Left superior renal pole ill-defined mild hyperdensity could be a manifestation of chronic medical renal disease in the proper context. Consider outpatient CT adrenal glands to further evaluate indeterminate left adrenal 1.2 cm nodularity. Calcified fibroid uterus. Appendectomy. 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 CXR worsening, increasing O2 requirements and hypoxic on ABG --discussed with pharmacy staff and Dr Krause- awaiting approval -04/12 SP IV Vancomycin #5 -f/u cx -Monitor CBC/CMP, temperatures -COVID19 isolation -f/u repeat Bcx x2 -CXR am Thank you for this consultation. Will continue to follow along with you. Discussed with pharmacy staff and Dr Krause- awaiting approval for remdesivir. Subjective Allergies: Coded Allergies: No Known Allergies (Unverified , 03/11/19) Afebrile Leukocytosis mild on 4L NC Objective Last 24 Hour Vital Signs Date Time Temp Pulse Resp B/P (MAP) Pulse Ox O2 Delivery O2 Flow Rate FiO2 04/15/20 08:35 Nasal Cannula 4.0 04/15/20 08:00 97.5 76 18 133/79 (97) 98 82 04/15/20 04:00 Nasal Cannula 4.0 04/15/20 04:00 98.7 102 20 112/62 (79) 95 04/15/20 03:34 108 04/15/20 00:00 Nasal Cannula 4.0 04/15/20 00:00 98.1 113 20 107/57 (74) 93 04/15/20 00:00 104 04/14/20 20:00 Nasal Cannula 4.0 04/14/20 20:00 98.4 121 24 110/82 (91) 94 04/14/20 20:00 121 04/14/20 19:42 95 Nasal Cannula 2.0 28 04/14/20 16:00 96 04/14/20 16:00 Nasal Cannula 4.0 04/14/20 16:00 98.1 97 17 135/89 (104) 99 85 04/14/20 12:00 108 04/14/20 12:00 98.1 75 20 121/63 (82) 100 85 04/14/20 12:00 Nasal Cannula 4.0 Height (Feet): 5 Height (Inches): 6.00 Weight (Pounds): 160 GENERAL: NAD on 4L NC HEENT: NCAT, MMM, EOMI LUNGS: Equal rise and fall of chest B/L no accessory muscle use ABDOMEN: Soft, nondistended EXTREMITIES: No cyanosis, clubbing, or edema. Microbiology Date/Time Source Procedure Growth Status 04/12/20 19:30 Blood Blood Culture - Preliminary NO GROWTH AFTER 48 HOURS Resulted 04/12/20 19:15 Blood Blood Culture - Preliminary NO GROWTH AFTER 48 HOURS Resulted Laboratory Tests Test 04/14/20 20:47 04/15/20 03:45 POC Whole Blood Glucose 101 MG/DL (74-106) White Blood Count 12.2 K/UL (4.8-10.8) H Red Blood Count 3.23 M/UL (4.20-5.40) L Hemoglobin 9.3 G/DL (12.0-16.0) L Hematocrit 27.6 % (37.0-47.0) L Mean Corpuscular Volume 85 FL (80-99) Mean Corpuscular Hemoglobin 28.7 PG (27.0-31.0) Mean Corpuscular Hemoglobin Concent 33.6 G/DL (32.0-36.0) Red Cell Distribution Width 13.3 % (11.6-14.8) Platelet Count 318 K/UL (150-450) Mean Platelet Volume 5.4 FL (6.5-10.1) L Neutrophils (%) (Auto) 80.8 % (45.0-75.0) H Lymphocytes (%) (Auto) 10.0 % (20.0-45.0) L Monocytes (%) (Auto) 7.7 % (1.0-10.0) Eosinophils (%) (Auto) 0.8 % (0.0-3.0) Basophils (%) (Auto) 0.8 % (0.0-2.0) Erythrocyte Sedimentation Rate 45 MM/HR (0-30) H Sodium Level 138 MMOL/L (136-145) Potassium Level 3.7 MMOL/L (3.5-5.1) Chloride Level 105 MMOL/L (98-107) Carbon Dioxide Level 24 MMOL/L (21-32) Anion Gap 9 mmol/L (5-15) Blood Urea Nitrogen 7 mg/dL (7-18) Creatinine 0.5 MG/DL (0.55-1.30) L Estimat Glomerular Filtration Rate > 60 mL/min (>60) Glucose Level 104 MG/DL (74-106) Calcium Level 7.9 MG/DL (8.5-10.1) L Phosphorus Level 2.5 MG/DL (2.5-4.9) Magnesium Level 2.1 MG/DL (1.8-2.4) Total Bilirubin 0.4 MG/DL (0.2-1.0) Direct Bilirubin 0.1 MG/DL (0.0-0.3) Aspartate Amino Transf (AST/SGOT) 22 U/L (15-37) Alanine Aminotransferase (ALT/SGPT) 22 U/L (12-78) Alkaline Phosphatase 86 U/L (46-116) Ammonia 15 umol/L (11-32) C-Reactive Protein, Quantitative 4.3 mg/dL (0.00-0.90) H Total Protein 5.2 G/DL (6.4-8.2) L Albumin 2.1 G/DL (3.4-5.0) L Globulin 3.1 g/dL Albumin/Globulin Ratio 0.7 (1.0-2.7) L Vitamin B12 Level 921 PG/ML (193-986) Methylmalonic Acid Pending Current Medications Medications (Trade) Dose Ordered Sig/Jere Route PRN Reason Start Time Stop Time Status Last Admin Dose Admin Acetaminophen (Tylenol) 650 mg Q4H PRN ORAL fever 04/08/20 19:00 05/08/20 18:59 04/12/20 00:27 Ascorbic Acid (Vitamin C) 500 mg TWICE A DAY ORAL 04/14/20 18:00 05/14/20 17:59 04/15/20 09:00 Barium Sulfate (Varibar Honey) 250 ml NOW PRN MC RAD 04/12/20 13:15 04/15/20 13:04 Barium Sulfate (Varibar [place]) 240 ml NOW PRN MC RAD 04/12/20 13:15 04/15/20 13:04 Barium Sulfate (Varibar Pudding) 230 ml NOW PRN MC RAD 04/12/20 13:15 04/15/20 13:04 Barium Sulfate (Varibar Thin Liquid powder) 148 gm NOW PRN MC RAD 04/12/20 13:15 04/15/20 13:04 Cefepime HCl 2 gm/ Dextrose 110 ml @ 220 mls/hr Q12H IV 04/09/20 21:00 04/16/20 20:59 04/15/20 09:00 Chlorhexidine Gluconate (Geno-Hex 2%) 1 applic DAILY@2000 TOPIC 04/08/20 20:00 07/07/20 19:59 04/14/20 20:29 Dexamethasone (Decadron) 6 mg DAILY ORAL 04/12/20 15:15 04/21/20 09:01 04/15/20 09:00 Dextrose (Dextrose 50%) 25 ml Q30M PRN IV Hypoglycemia 04/09/20 07:45 07/08/20 07:44 04/11/20 16:12 Dextrose (Dextrose 50%) 50 ml Q30M PRN IV Hypoglycemia 04/09/20 07:45 07/08/20 07:44 Dextrose/ Electrolytes 1,000 ml @ 30 mls/hr Q24H IV 04/08/20 22:30 05/08/20 22:29 04/14/20 21:45 Enoxaparin Sodium (Lovenox) 40 mg DAILY SUBQ 04/14/20 20:00 07/13/20 19:59 04/15/20 09:00 Insulin Aspart (NovoLOG) BEFORE MEALS AND HS SUBQ 04/09/20 11:30 07/08/20 11:29 04/10/20 12:08 Linezolid (Zyvox) 600 mg EVERY 12 HOURS ORAL 04/12/20 15:00 04/17/20 14:59 04/15/20 09:00 Metoprolol Tartrate (Lopressor) 5 mg Q1H PRN IVP spb more than 120 04/08/20 19:00 07/07/20 18:59 Multivitamins (Multivitamins) 1 tab DAILY ORAL 04/15/20 09:00 05/15/20 08:59 04/15/20 09:00 Ondansetron HCl (Zofran) 4 mg Q6H PRN IVP Nausea & Vomiting 04/08/20 19:00 05/08/20 18:59 Pantoprazole (Protonix) 40 mg EVERY 12 HOURS IVP 04/10/20 21:00 05/10/20 20:59 04/15/20 09:00 Polyethylene Glycol (Miralax) 17 gm BEDTIME ORAL 04/09/20 21:00 05/09/20 20:59 04/14/20 20:29 Polyethylene Glycol (Miralax) 17 gm DAILYPRN PRN ORAL Constipation 04/08/20 19:00 05/08/20 18:59 Remdesivir 100 mg/ Sodium Chloride 250 ml @ 250 mls/hr Q24H IV 04/14/20 22:00 04/17/20 22:59 04/14/20 21:44 Temazepam (Restoril) 15 mg HSPRN PRN ORAL Insomnia 04/08/20 19:00 04/15/20 18:59 Zinc Sulfate (Zinc Sulfate) 220 mg DAILY ORAL 04/15/20 09:00 04/25/20 08:59 04/15/20 09:00 Prabhu Jacques MD Apr 15, 2020 10:19
--- NOTE | 2020-04-15 10:38 | Diagnostic Imaging Report ---
Procedure: XRAY Chest 1v Reason for study: Reason For Exam: [id number] Comparison films: 04/14/2020. FINDINGS: A single one view chest is obtained. Vascularity is normal. There is slight increased right basilar infiltrate. Cardiac and mediastinal silhouette are within normal limits. CP angles are sharp. The bony thorax appear unremarkable. IMPRESSION: Slight increased right basilar infiltrate.
--- NOTE | 2020-04-15 10:39 | NUR ---
CASE MANAGEMENT: REVIEW 04/15/2020 SI:SEPSIS. COVID PNA 97.5 102 20 133/79 98% ON 4L/NC WBC+12.2 IS:IV REMDESIVIR Q24HRS (08/26) DECADRON PO QD ZYVOX PO Q12 IV CEFEPIME Q12 IVF@30/HR : NOW ON TELEMETRY DCP; FROM [facility]
--- NOTE | 2020-04-15 11:50 | Pulmonology Progress Note ---
Subjective ROS Limited/Unobtainable: No Constitutional: Reports: no symptoms HEENT: Repors: no symptoms Allergies: Coded Allergies: No Known Allergies (Unverified , 03/11/19) Objective Last 24 Hour Vital Signs Date Time Temp Pulse Resp B/P (MAP) Pulse Ox O2 Delivery O2 Flow Rate FiO2 04/15/20 08:35 Nasal Cannula 4.0 04/15/20 08:00 99 04/15/20 08:00 97.5 76 18 133/79 (97) 98 82 04/15/20 04:00 Nasal Cannula 4.0 04/15/20 04:00 98.7 102 20 112/62 (79) 95 04/15/20 03:34 108 04/15/20 00:00 Nasal Cannula 4.0 04/15/20 00:00 98.1 113 20 107/57 (74) 93 04/15/20 00:00 104 04/14/20 20:00 Nasal Cannula 4.0 04/14/20 20:00 98.4 121 24 110/82 (91) 94 04/14/20 20:00 121 04/14/20 19:42 95 Nasal Cannula 2.0 28 04/14/20 16:00 96 04/14/20 16:00 Nasal Cannula 4.0 04/14/20 16:00 98.1 97 17 135/89 (104) 99 85 04/14/20 12:00 108 04/14/20 12:00 98.1 75 20 121/63 (82) 100 85 04/14/20 12:00 Nasal Cannula 4.0 Intake and Output 04/14/20 04/15/20 19:00 07:00 Intake Total 0 ml 577.5 ml Output Total 50 ml Balance 0 ml 527.5 ml Intake Oral 0 ml IV Total 577.5 ml Output Urine Total 50 ml # Bowel Movements 4 3 General Appearance: WD/WN HEENT: normocephalic, atraumatic Respiratory: chest wall non-tender, lungs clear Breasts: no masses Cardiovascular: normal peripheral pulses Abdomen: normal bowel sounds, soft, non tender, no organomegaly Extremities: no cyanosis Neurologic: sharepoint solutions developer II-XII 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 Microbiology Date/Time Source Procedure Growth Status 04/12/20 19:30 Blood Blood Culture - Preliminary NO GROWTH AFTER 48 HOURS Resulted 04/12/20 19:15 Blood Blood Culture - Preliminary NO GROWTH AFTER 48 HOURS Resulted Laboratory Tests 04/14/20 20:47: POC Whole Blood Glucose 101 04/15/20 03:45: White Blood Count 12.2H, Red Blood Count 3.23L, Hemoglobin 9.3L, Hematocrit 27.6L, Mean Corpuscular Volume 85, Mean Corpuscular Hemoglobin 28.7, Mean Corpuscular Hemoglobin Concent 33.6, Red Cell Distribution Width 13.3, Platelet Count 318, Mean Platelet Volume 5.4L, Neutrophils (%) (Auto) 80.8H, Lymphocytes (%) (Auto) 10.0L, Monocytes (%) (Auto) 7.7, Eosinophils (%) (Auto) 0.8, Basophils (%) (Auto) 0.8, Erythrocyte Sedimentation Rate 45H, Sodium Level 138, Potassium Level 3.7, Chloride Level 105, Carbon Dioxide Level 24, Anion Gap 9, Blood Urea Nitrogen 7, Creatinine 0.5L, Estimat Glomerular Filtration Rate > 60, Glucose Level 104, Calcium Level 7.9L, Phosphorus Level 2.5, Magnesium Level 2.1, Total Bilirubin 0.4, Direct Bilirubin 0.1, Aspartate Amino Transf (AST/SGOT) 22, Alanine Aminotransferase (ALT/SGPT) 22, Alkaline Phosphatase 86, Ammonia 15, C-Reactive Protein, Quantitative 4.3H, Total Protein 5.2L, Albumin 2.1L, Globulin 3.1, Albumin/Globulin Ratio 0.7L, Vitamin B12 Level 921, Methylmalonic Acid [Pending] Current Medications Medications (Trade) Dose Ordered Sig/Jere Route PRN Reason Start Time Stop Time Status Last Admin Dose Admin Acetaminophen (Tylenol) 650 mg Q4H PRN ORAL fever 04/08/20 19:00 05/08/20 18:59 04/12/20 00:27 Ascorbic Acid (Vitamin C) 500 mg TWICE A DAY ORAL 04/14/20 18:00 05/14/20 17:59 04/15/20 09:00 Barium Sulfate (Varibar Honey) 250 ml NOW PRN MC RAD 04/12/20 13:15 04/15/20 13:04 Barium Sulfate (Varibar [place]) 240 ml NOW PRN MC RAD 04/12/20 13:15 04/15/20 13:04 Barium Sulfate (Varibar Pudding) 230 ml NOW PRN MC RAD 04/12/20 13:15 04/15/20 13:04 Barium Sulfate (Varibar Thin Liquid powder) 148 gm NOW PRN RAD 04/12/20 13:15 04/15/20 13:04 Cefepime HCl 2 gm/ Dextrose 110 ml @ 220 mls/hr Q12H IV 04/09/20 21:00 04/16/20 20:59 04/15/20 09:00 Chlorhexidine Gluconate (Geno-Hex 2%) 1 applic DAILY@2000 TOPIC 04/08/20 20:00 07/07/20 19:59 04/14/20 20:29 Dexamethasone (Decadron) 6 mg DAILY ORAL 04/12/20 15:15 04/21/20 09:01 04/15/20 09:00 Dextrose (Dextrose 50%) 25 ml Q30M PRN IV Hypoglycemia 04/09/20 07:45 07/08/20 07:44 04/11/20 16:12 Dextrose (Dextrose 50%) 50 ml Q30M PRN IV Hypoglycemia 04/09/20 07:45 07/08/20 07:44 Dextrose/ Electrolytes 1,000 ml @ 30 mls/hr Q24H IV 04/08/20 22:30 05/08/20 22:29 04/14/20 21:45 Enoxaparin Sodium (Lovenox) 40 mg DAILY SUBQ 04/14/20 20:00 07/13/20 19:59 04/15/20 09:00 Insulin Aspart (NovoLOG) BEFORE MEALS AND HS SUBQ 04/09/20 11:30 07/08/20 11:29 04/10/20 12:08 Linezolid (Zyvox) 600 mg EVERY 12 HOURS ORAL 04/12/20 15:00 04/17/20 14:59 04/15/20 09:00 Metoprolol Tartrate (Lopressor) 5 mg Q1H PRN IVP spb more than 120 04/08/20 19:00 07/07/20 18:59 Multivitamins (Multivitamins) 1 tab DAILY ORAL 04/15/20 09:00 05/15/20 08:59 04/15/20 09:00 Ondansetron HCl (Zofran) 4 mg Q6H PRN IVP Nausea & Vomiting 04/08/20 19:00 05/08/20 18:59 Pantoprazole (Protonix) 40 mg EVERY 12 HOURS IVP 04/10/20 21:00 05/10/20 20:59 04/15/20 09:00 Polyethylene Glycol (Miralax) 17 gm BEDTIME ORAL 04/09/20 21:00 05/09/20 20:59 04/14/20 20:29 Polyethylene Glycol (Miralax) 17 gm DAILYPRN PRN ORAL Constipation 04/08/20 19:00 05/08/20 18:59 Remdesivir 100 mg/ Sodium Chloride 250 ml @ 250 mls/hr Q24H IV 04/14/20 22:00 04/17/20 22:59 04/14/20 21:44 Temazepam (Restoril) 15 mg HSPRN PRN ORAL Insomnia 04/08/20 19:00 04/15/20 18:59 Zinc Sulfate (Zinc Sulfate) 220 mg DAILY ORAL 04/15/20 09:00 04/25/20 08:59 04/15/20 09:00 Assessment/Plan Problems: (1) Hemorrhagic shock (2) Sepsis (3) Bacteremia (4) History of CVA (cerebrovascular accident) (5) Rectal bleeding (6) Hematuria Assessment/Plan cxr today showing increased RLL infiltrate confused Neuro evaluation requested f/u ID recommendations check electrolytes GI note appreciated continue Decadron dvt prophylaxis. Marina Buitrago MD Apr 15, 2020 11:50
[2020-04-15 12:00] VITALS: BP 118/68
--- NOTE | 2020-04-15 12:08 | NUR ---
Speech Note (Dysphagia Rx) S: Pt is alert, Pt had a tray from morning, O: 1. Aspiration precaution management - repositioned upright and discussed with RN at her bedside - After 3-5 bites of PO, she begun to vomit without aspiration - After vomit, she was tachy 120, SPO2 98% on 2liter 2. Aspiration risk was discussed with RN A: Dysphagia with high aspiration risk and worsning pulmonary status P: 1. Continue with pureed diet and thin liquid for now 2. GI consultation for possible intermission coordinator feeding placement 3. Strict Aspiration precaution Harsh Suazo
--- NOTE | 2020-04-15 13:40 | General Progress Note ---
Subjective ROS Limited/Unobtainable: No Allergies: Coded Allergies: No Known Allergies (Unverified , 03/11/19) Objective Last 24 Hour Vital Signs Date Time Temp Pulse Resp B/P (MAP) Pulse Ox O2 Delivery O2 Flow Rate FiO2 04/15/20 12:00 98.1 121 22 118/68 (85) 98 04/15/20 08:35 Nasal Cannula 4.0 04/15/20 08:00 99 04/15/20 08:00 97.5 76 18 133/79 (97) 98 82 04/15/20 04:00 Nasal Cannula 4.0 04/15/20 04:00 98.7 102 20 112/62 (79) 95 04/15/20 03:34 108 04/15/20 00:00 Nasal Cannula 4.0 04/15/20 00:00 98.1 113 20 107/57 (74) 93 04/15/20 00:00 104 04/14/20 20:00 Nasal Cannula 4.0 04/14/20 20:00 98.4 121 24 110/82 (91) 94 04/14/20 20:00 121 04/14/20 19:42 95 Nasal Cannula 2.0 28 04/14/20 16:00 96 04/14/20 16:00 Nasal Cannula 4.0 04/14/20 16:00 98.1 97 17 135/89 (104) 99 85 Intake and Output 04/14/20 04/15/20 19:00 07:00 Intake Total 0 ml 577.5 ml Output Total 50 ml Balance 0 ml 527.5 ml Intake Oral 0 ml IV Total 577.5 ml Output Urine Total 50 ml # Bowel Movements 4 3 Laboratory Tests 04/14/20 20:47: POC Whole Blood Glucose 101 04/15/20 03:45: White Blood Count 12.2H, Red Blood Count 3.23L, Hemoglobin 9.3L, Hematocrit 27.6L, Mean Corpuscular Volume 85, Mean Corpuscular Hemoglobin 28.7, Mean Corpuscular Hemoglobin Concent 33.6, Red Cell Distribution Width 13.3, Platelet Count 318, Mean Platelet Volume 5.4L, Neutrophils (%) (Auto) 80.8H, Lymphocytes (%) (Auto) 10.0L, Monocytes (%) (Auto) 7.7, Eosinophils (%) (Auto) 0.8, Basophils (%) (Auto) 0.8, Erythrocyte Sedimentation Rate 45H, Sodium Level 138, Potassium Level 3.7, Chloride Level 105, Carbon Dioxide Level 24, Anion Gap 9, Blood Urea Nitrogen 7, Creatinine 0.5L, Estimat Glomerular Filtration Rate > 60, Glucose Level 104, Calcium Level 7.9L, Phosphorus Level 2.5, Magnesium Level 2.1, Total Bilirubin 0.4, Direct Bilirubin 0.1, Aspartate Amino Transf (AST/SGOT) 22, Alanine Aminotransferase (ALT/SGPT) 22, Alkaline Phosphatase 86, Ammonia 15, C-Reactive Protein, Quantitative 4.3H, Total Protein 5.2L, Albumin 2 .1L, Globulin 3.1, Albumin/Globulin Ratio 0.7L, Vitamin B12 Level 921, Methylmalonic Acid [Pending] Height (Feet): 5 Height (Inches): 6.00 Weight (Pounds): 160 General Appearance: no apparent distress EENT: normal ENT inspection Neck: supple Cardiovascular: normal rate Respiratory/Chest: decreased breath sounds Abdomen: normal bowel sounds, non tender, soft Extremities: non-tender Assessment/Plan Status: stable, unchanged Assessment/Plan: 1. History of hypertension. 2. Diabetes. 3. CVA. 4. UTI. 5. Colitis. 6. Endometrial cancer. hgb 10 no recurrent gib passed swallow eval on oral diet still poor po intake d/w her sister>>> plan peg on saturday [facility] for now Nima Park MD Apr 15, 2020 13:40
--- NOTE | 2020-04-15 14:03 | Nephrology Progress Note ---
Assessment/Plan Problem List: (1) COVID-19 (2) Atrial fibrillation with RVR (3) Septic shock (4) Hemorrhagic shock (5) History of CVA (cerebrovascular accident) (6) Anemia Assessment Electrolyte abnormalities, normal BUN and creatinine(low phosphorus, low magnesium, low potassium,) Atrial fibrillation with fast ventricular rate Sepsis, COVID-19 Low BP upon admission with sepsis and vaginal /rectal hemorrhage Anemia, secondary to acute blood loss Toxic metabolic encephalopathy Hematuria History of CVA, lacunar infarct History of diabetes type 2 In operable endometrial adenocarcinoma status post brachytherapy History of hypertension Plan April 15: Labs reviewed. Electrolyte abnormalities addressed. Continue as is. April 14: Labs reviewed. Low phosphorus and low magnesium corrected. Continue per consultants. Blood pressure remains stable. April 13: Electrolytes within normal limit. Renal parameters within normal limit. Continue per consultants. April 12: Electrolyte abnormalities noted and addressed. Continue per consultants Magnesium IV supplement as needed Potassium IV supplement as needed Phosphorus IV supplement as needed Monitor electrolytes Monitor hemoglobin hematocrit IV Protonix Adjust IV fluid Antibiotics per consultants Subjective ROS Limited/Unobtainable: No Constitutional: Reports: malaise, weakness Objective Objective Last 24 Hour Vital Signs Date Time Temp Pulse Resp B/P (MAP) Pulse Ox O2 Delivery O2 Flow Rate FiO2 04/15/20 12:00 98.1 121 22 118/68 (85) 98 04/15/20 12:00 104 04/15/20 08:35 Nasal Cannula 4.0 04/15/20 08:00 99 04/15/20 08:00 97.5 76 18 133/79 (97) 98 82 04/15/20 04:00 Nasal Cannula 4.0 04/15/20 04:00 98.7 102 20 112/62 (79) 95 04/15/20 03:34 108 04/15/20 00:00 Nasal Cannula 4.0 04/15/20 00:00 98.1 113 20 107/57 (74) 93 04/15/20 00:00 104 04/14/20 20:00 Nasal Cannula 4.0 04/14/20 20:00 98.4 121 24 110/82 (91) 94 04/14/20 20:00 121 04/14/20 19:42 95 Nasal Cannula 2.0 28 04/14/20 16:00 96 04/14/20 16:00 Nasal Cannula 4.0 04/14/20 16:00 98.1 97 17 135/89 (104) 99 85 Intake and Output 04/14/20 04/15/20 19:00 07:00 Intake Total 0 ml 577.5 ml Output Total 50 ml Balance 0 ml 527.5 ml Intake Oral 0 ml IV Total 577.5 ml Output Urine Total 50 ml # Bowel Movements 4 3 Laboratory Tests 04/14/20 20:47: POC Whole Blood Glucose 101 04/15/20 03:45: White Blood Count 12.2H, Red Blood Count 3.23L, Hemoglobin 9.3L, Hematocrit 27.6L, Mean Corpuscular Volume 85, Mean Corpuscular Hemoglobin 28.7, Mean Corpuscular Hemoglobin Concent 33.6, Red Cell Distribution Width 13.3, Platelet Count 318, Mean Platelet Volume 5.4L, Neutrophils (%) (Auto) 80.8H, Lymphocytes (%) (Auto) 10.0L, Monocytes (%) (Auto) 7.7, Eosinophils (%) (Auto) 0.8, Basophils (%) (Auto) 0.8, Erythrocyte Sedimentation Rate 45H, Sodium Level 138, Potassium Level 3.7, Chloride Level 105, Carbon Dioxide Level 24, Anion Gap 9, Blood Urea Nitrogen 7, Creatinine 0.5L, Estimat Glomerular Filtration Rate > 60, Glucose Level 104, Calcium Level 7.9L, Phosphorus Level 2.5, Magnesium Level 2.1, Total Bilirubin 0.4, Direct Bilirubin 0.1, Aspartate Amino Transf (AST/SGOT) 22, Alanine Aminotransferase (ALT/SGPT) 22, Alkaline Phosphatase 86, Ammonia 15, C-Reactive Protein, Quantitative 4.3H, Total Protein 5.2L, Albumin 2.1L, Globulin 3.1, Albumin/Globulin Ratio 0.7L, Vitamin B12 Level 921, Methylmalonic Acid [Pending] Height (Feet): 5 Height (Inches): 6.00 Weight (Pounds): 160 General Appearance: no apparent distress Cardiovascular: tachycardia Respiratory/Chest: decreased breath sounds Abdomen: distended Steven Edwards MD Apr 15, 2020 14:03
--- NOTE | 2020-04-15 15:21 | Internal Med Progress Note ---
Subjective Physician Name Dewayne Mendoza Attending Physician Dewayne Mendoza MD Current Medications Medications (Trade) Dose Ordered Sig/Jere Route PRN Reason Start Time Stop Time Status Last Admin Dose Admin Acetaminophen (Tylenol) 650 mg Q4H PRN ORAL fever 04/08/20 19:00 05/08/20 18:59 04/12/20 00:27 Ascorbic Acid (Vitamin C) 500 mg TWICE A DAY ORAL 04/14/20 18:00 05/14/20 17:59 04/15/20 09:00 Cefepime HCl 2 gm/ Dextrose 110 ml @ 220 mls/hr Q12H IV 04/09/20 21:00 04/16/20 20:59 04/15/20 09:00 Chlorhexidine Gluconate (Geno-Hex 2%) 1 applic DAILY@2000 TOPIC 04/08/20 20:00 07/07/20 19:59 04/14/20 20:29 Dexamethasone (Decadron) 6 mg DAILY ORAL 04/12/20 15:15 04/21/20 09:01 04/15/20 09:00 Dextrose (Dextrose 50%) 25 ml Q30M PRN IV Hypoglycemia 04/09/20 07:45 07/08/20 07:44 04/11/20 16:12 Dextrose (Dextrose 50%) 50 ml Q30M PRN IV Hypoglycemia 04/09/20 07:45 07/08/20 07:44 Dextrose/ Electrolytes 1,000 ml @ 30 mls/hr Q24H IV 04/08/20 22:30 05/08/20 22:29 04/14/20 21:45 Enoxaparin Sodium (Lovenox) 40 mg DAILY SUBQ 04/14/20 20:00 07/13/20 19:59 04/15/20 09:00 Insulin Aspart (NovoLOG) BEFORE MEALS AND HS SUBQ 04/09/20 11:30 07/08/20 11:29 04/10/20 12:08 Linezolid (Zyvox) 600 mg EVERY 12 HOURS ORAL 04/12/20 15:00 04/17/20 14:59 04/15/20 09:00 Metoprolol Tartrate (Lopressor) 5 mg Q1H PRN IVP spb more than 120 04/08/20 19:00 07/07/20 18:59 Multivitamins (Multivitamins) 1 tab DAILY ORAL 04/15/20 09:00 05/15/20 08:59 04/15/20 09:00 Ondansetron HCl (Zofran) 4 mg Q6H PRN IVP Nausea & Vomiting 04/08/20 19:00 05/08/20 18:59 Pantoprazole (Protonix) 40 mg EVERY 12 HOURS IVP 04/10/20 21:00 05/10/20 20:59 04/15/20 09:00 Polyethylene Glycol (Miralax) 17 gm BEDTIME ORAL 04/09/20 21:00 05/09/20 20:59 04/14/20 20:29 Polyethylene Glycol (Miralax) 17 gm DAILYPRN PRN ORAL Constipation 04/08/20 19:00 05/08/20 18:59 Remdesivir 100 mg/ Sodium Chloride 250 ml @ 250 mls/hr Q24H IV 04/14/20 22:00 04/17/20 22:59 04/14/20 21:44 Temazepam (Restoril) 15 mg HSPRN PRN ORAL Insomnia 04/08/20 19:00 04/15/20 18:59 Zinc Sulfate (Zinc Sulfate) 220 mg DAILY ORAL 04/15/20 09:00 04/25/20 08:59 04/15/20 09:00 Allergies: Coded Allergies: No Known Allergies (Unverified , 03/11/19) Subjective awake, responsive, poor oral intake, hemoglobin: 9.3, WBC: 12.2. Objective Last Vital Signs Date Time Temp Pulse Resp B/P (MAP) Pulse Ox O2 Delivery O2 Flow Rate FiO2 04/15/20 12:00 98.1 121 22 118/68 (85) 98 04/15/20 08:35 Nasal Cannula 4.0 04/14/20 19:42 28 Laboratory Tests Test 04/14/20 20:47 04/15/20 03:45 POC Whole Blood Glucose 101 MG/DL (74-106) White Blood Count 12.2 K/UL (4.8-10.8) H Red Blood Count 3.23 M/UL (4.20-5.40) L Hemoglobin 9.3 G/DL (12.0-16.0) L Hematocrit 27.6 % (37.0-47.0) L Mean Corpuscular Volume 85 FL (80-99) Mean Corpuscular Hemoglobin 28.7 PG (27.0-31.0) Mean Corpuscular Hemoglobin Concent 33.6 G/DL (32.0-36.0) Red Cell Distribution Width 13.3 % (11.6-14.8) Platelet Count 318 K/UL (150-450) Mean Platelet Volume 5.4 FL (6.5-10.1) L Neutrophils (%) (Auto) 80.8 % (45.0-75.0) H Lymphocytes (%) (Auto) 10.0 % (20.0-45.0) L Monocytes (%) (Auto) 7.7 % (1.0-10.0) Eosinophils (%) (Auto) 0.8 % (0.0-3.0) Basophils (%) (Auto) 0.8 % (0.0-2.0) Erythrocyte Sedimentation Rate 45 MM/HR (0-30) H Sodium Level 138 MMOL/L (136-145) Potassium Level 3.7 MMOL/L (3.5-5.1) Chloride Level 105 MMOL/L (98-107) Carbon Dioxide Level 24 MMOL/L (21-32) Anion Gap 9 mmol/L (5-15) Blood Urea Nitrogen 7 mg/dL (7-18) Creatinine 0.5 MG/DL (0.55-1.30) L Estimat Glomerular Filtration Rate > 60 mL/min (>60) Glucose Level 104 MG/DL (74-106) Calcium Level 7.9 MG/DL (8.5-10.1) L Phosphorus Level 2.5 MG/DL (2.5-4.9) Magnesium Level 2.1 MG/DL (1.8-2.4) Total Bilirubin 0.4 MG/DL (0.2-1.0) Direct Bilirubin 0.1 MG/DL (0.0-0.3) Aspartate Amino Transf (AST/SGOT) 22 U/L (15-37) Alanine Aminotransferase (ALT/SGPT) 22 U/L (12-78) Alkaline Phosphatase 86 U/L (46-116) Ammonia 15 umol/L (11-32) C-Reactive Protein, Quantitative 4.3 mg/dL (0.00-0.90) H Total Protein 5.2 G/DL (6.4-8.2) L Albumin 2.1 G/DL (3.4-5.0) L Globulin 3.1 g/dL Albumin/Globulin Ratio 0.7 (1.0-2.7) L Vitamin B12 Level 921 PG/ML (193-986) Methylmalonic Acid Pending Microbiology Date/Time Source Procedure Growth Status 04/12/20 19:30 Blood Blood Culture - Preliminary NO GROWTH AFTER 48 HOURS Resulted 04/12/20 19:15 Blood Blood Culture - Preliminary NO GROWTH AFTER 48 HOURS Resulted Intake and Output 04/14/20 04/15/20 19:00 07:00 Intake Total 0 ml 577.5 ml Output Total 50 ml Balance 0 ml 527.5 ml Intake Oral 0 ml IV Total 577.5 ml Output Urine Total 50 ml # Bowel Movements 4 3 Objective GENERAL: awake, responsive, however confused. HEAD AND NECK: Pupils are equal and reactive to light. Extraocular movements are intact. Neck was supple. No JVD. LUNGS: Bilateral air entry. Decreased air in the bases. HEART: S1, S2. irregular. No murmur or gallop ABDOMEN: Soft, nondistended. not tenderness, Mildly obese. EXTREMITIES: No cyanosis, clubbing, or edema. GENITOURINARY: Lowe catheter. NEUROLOGIC: Cranial nerves II through XII grossly intact. moving all extremities equally. Gait was not able to assess due to the patient's status. RECTAL: Refused and deferred. Assessment/Plan Assessment/Plan ASSESSMENT: 1. COVID-19 pneumonia. 2. Altered mental status, most likely secondary to toxic metabolic encephalopathy. 3. Atrial fibrillation with rapid ventricular rate. 4. Anemia most likely secondary to acute blood loss. 5. Sepsis secondary to urinary tract infection as well as pneumonia. 6. Vaginal bleeding. 7. UTI=VRE 8. History of diabetes type 2. 9. Inoperable endometrial adenocarcinoma, status post brachytherapy. 10. Hypertension. 11. History of lacunar infarction. PLAN: 1. In Monitor Unit 2. Dr. Buitrago=Pulmonary/Critical Care 3. Dr. Wale Wu = Cardiology. 4. Antibiotic=Cefepime IV and Zyvox. 5. In droplet isolation [facility]-19 room. 6. Code status =Full Code. 7. DVT prophylaxis: Lovenox 8. patient is scheduled for PEG placement for next Nereida. 9. Discussed with the sister extensively over the phone regarding plan of care and PEG placement next week. - Remdesivir #2/5 - Dewayne Salazar IV, MD Apr 15, 2020 15:21
--- NOTE | 2020-04-15 15:21 | Surgery Progress Note ---
Surgery Progress Note Subjective Additional Comments ill appearing eyes noted labs stable no bleeding Objective Last 24 Hour Vital Signs Date Time Temp Pulse Resp B/P (MAP) Pulse Ox O2 Delivery O2 Flow Rate FiO2 04/15/20 12:00 98.1 121 22 118/68 (85) 98 04/15/20 12:00 104 04/15/20 08:35 Nasal Cannula 4.0 04/15/20 08:00 99 04/15/20 08:00 97.5 76 18 133/79 (97) 98 82 04/15/20 04:00 Nasal Cannula 4.0 04/15/20 04:00 98.7 102 20 112/62 (79) 95 04/15/20 03:34 108 04/15/20 00:00 Nasal Cannula 4.0 04/15/20 00:00 98.1 113 20 107/57 (74) 93 04/15/20 00:00 104 04/14/20 20:00 Nasal Cannula 4.0 04/14/20 20:00 98.4 121 24 110/82 (91) 94 04/14/20 20:00 121 04/14/20 19:42 95 Nasal Cannula 2.0 28 04/14/20 16:00 96 04/14/20 16:00 Nasal Cannula 4.0 04/14/20 16:00 98.1 97 17 135/89 (104) 99 85 I&O Intake and Output 04/14/20 04/15/20 19:00 07:00 Intake Total 0 ml 577.5 ml Output Total 50 ml Balance 0 ml 527.5 ml Intake Oral 0 ml IV Total 577.5 ml Output Urine Total 50 ml # Bowel Movements 4 3 Dressing: other Wound: other Cardiovascular: RSR Respiratory: decreased breath sounds Abdomen: soft, non-tender, present bowel sounds Extremities: no tenderness, no cyanosis Laboratory Tests Test 04/14/20 20:47 04/15/20 03:45 POC Whole Blood Glucose 101 MG/DL (74-106) White Blood Count 12.2 K/UL (4.8-10.8) H Red Blood Count 3.23 M/UL (4.20-5.40) L Hemoglobin 9.3 G/DL (12.0-16.0) L Hematocrit 27.6 % (37.0-47.0) L Mean Corpuscular Volume 85 FL (80-99) Mean Corpuscular Hemoglobin 28.7 PG (27.0-31.0) Mean Corpuscular Hemoglobin Concent 33.6 G/DL (32.0-36.0) Red Cell Distribution Width 13.3 % (11.6-14.8) Platelet Count 318 K/UL (150-450) Mean Platelet Volume 5.4 FL (6.5-10.1) L Neutrophils (%) (Auto) 80.8 % (45.0-75.0) H Lymphocytes (%) (Auto) 10.0 % (20.0-45.0) L Monocytes (%) (Auto) 7.7 % (1.0-10.0) Eosinophils (%) (Auto) 0.8 % (0.0-3.0) Basophils (%) (Auto) 0.8 % (0.0-2.0) Erythrocyte Sedimentation Rate 45 MM/HR (0-30) H Sodium Level 138 MMOL/L (136-145) Potassium Level 3.7 MMOL/L (3.5-5.1) Chloride Level 105 MMOL/L (98-107) Carbon Dioxide Level 24 MMOL/L (21-32) Anion Gap 9 mmol/L (5-15) Blood Urea Nitrogen 7 mg/dL (7-18) Creatinine 0.5 MG/DL (0.55-1.30) L Estimat Glomerular Filtration Rate > 60 mL/min (>60) Glucose Level 104 MG/DL (74-106) Calcium Level 7.9 MG/DL (8.5-10.1) L Phosphorus Level 2.5 MG/DL (2.5-4.9) Magnesium Level 2.1 MG/DL (1.8-2.4) Total Bilirubin 0.4 MG/DL (0.2-1.0) Direct Bilirubin 0.1 MG/DL (0.0-0.3) Aspartate Amino Transf (AST/SGOT) 22 U/L (15-37) Alanine Aminotransferase (ALT/SGPT) 22 U/L (12-78) Alkaline Phosphatase 86 U/L (46-116) Ammonia 15 umol/L (11-32) C-Reactive Protein, Quantitative 4.3 mg/dL (0.00-0.90) H Total Protein 5.2 G/DL (6.4-8.2) L Albumin 2.1 G/DL (3.4-5.0) L Globulin 3.1 g/dL Albumin/Globulin Ratio 0.7 (1.0-2.7) L Vitamin B12 Level 921 PG/ML (193-986) Methylmalonic Acid Pending Plan Problems: (1) Hematuria (2) Rectal bleeding Assessment & Plan: [age]-year-old female identified to have rectal bleeding on admission. GI aware surgery aware no active bleeding at this time hemoglobin noted. Transfuse PRBC as needed. Pending scope consideration. passed swallow no bleeding on diet may need peg as per GI cont diet supplements added for wound care DAILY ESTIMATED NEEDS: Needs based on Obesity, cardiac/ 67.6kg abw 22-27 kcals/kg 6441-8734 total kcals 1-1.5 g protein/kg 68-101 g total protein 25-30 mL/kg 6724-3721 total fluid mLs NUTRITION DIAGNOSIS: * Swallowing difficulty R/T dysphagia, h/o CVA, clinical condition as evidenced by seen by ENGRAVER APPRENTICE DECORATIVE w/ rec for pureed moist texture w/ thin liquids. 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 CURRENT DIET:[facility] MED, pureed moist w/ thin liquids PO DIET RECOMMENDATIONS: Liberalized REGULAR w/ poor PO ([facility] MED+LOW NA w/ PO intake >50%) ADDITIONAL RECOMMENDATIONS: * Per SNF: HT=64" PK=183epn (04/05/20) -> rec daily calibrated bedscale wt, monitor trend Possible wt loss of 68 lbs/29% in 13 months * W/ poor PO intake, add Glucerna TID w/ meals * Wound healing: Add MVI x 1, Vit C 500mg BID, ZnSO4 220mg QD x 10 days Woody (QD for now- increase to BID w/ good acceptance) added to tray * Monitor lytes, replete as needed (low k and mag) (3) Hemorrhagic shock (4) Acute CVA (cerebrovascular accident) (5) Septic shock (6) Anemia (7) Sepsis (8) Altered mental status (9) Atrial fibrillation with RVR (10) COVID-19 Assessment & Plan: ++ as per ID and pulm cxr noted (11) History of CVA (cerebrovascular accident) (12) Decubitus skin ulcer Assessment & Plan: Patient identified on admission to have a 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 apply therahoney to areas of slo ugh. apply mositure barrier paste on the periwound. cover with optifoam dressing. change Q3D and PRN. Apply cavilon on both heels& malleoli. Cover each site with optifoam dressing. Change Q7D and PRN. Elian Ren Apr 15, 2020 15:21
--- NOTE | 2020-04-15 17:30 | NUR ---
NURSE NOTES: Pt refusing to eat more than a spoonful so NG tube placed for Rx and nutrition. Pt attempting to pull tube during insertion so hands held by assistants. NG tube inserted into right nostril and advanced to 54 cm. thais, taped in place. Placement verified by auscultation. Order placed for AbdXR for confirmation, received. Pt placed in bilateral soft wrist restraints to prevent pulling of NG tube which she continuously tried to reach. Left hand had +2 non pitting edema prior to restraints, otherwise good distal functions.
--- NOTE | 2020-04-15 18:45 | Diagnostic Imaging Report ---
EXAM: XR Abdomen, 2 Views CLINICAL HISTORY: NGT TECHNIQUE: Frontal view of the abdomen/pelvis with upright view of the abdomen. COMPARISON: No relevant prior studies available. FINDINGS: Intraperitoneal space: No free air. Gastrointestinal tract: Unremarkable. Organs: Large calcification seen within the left hemipelvis measured to 5.2 cm which may represent a calcified fibroid. Bones/joints: Unremarkable. Tubes, lines and devices: Enteric tube with tip in the gastric fundus. IMPRESSION: Enteric tube with tip in the gastric fundus.
--- NOTE | 2020-04-15 19:35 | NUR ---
NURSE NOTES: RECEIVED REPORT FROM VARUN OCONNELL. AAOX2, VERBALLY RESPONSIVE ALTHOUGH DELAYED, ABLE TO MAKE NEEDS KNOWN. NO COMPLAINTS OF PAIN OR DISCOMFORT AT THIS TIME. BREATHING IS EVEN AND UNLABORED ON 4LPM VIA NC, NO S/SX OF DISTRESS NOTED. IV SITE ON LAC PATENT, INTACT, ASYMPTOMATIC, AND SALINE-LOCKED; RIGHT FEMORAL TLC PATENT, INTACT, ASYMPTOMATIC, WITH IVF RUNNING PRESCRIBED- DRESSING CLEAN. NGT FEEDING RUNNING PRESCRIBED, RESIDUAL OF 5ML. SESAY CATHETER DRAINING WELL TO GRAVITY, URINE BLOOD-TINGED WITH CLOTS. BILATERAL SOFT WRIST RESTRAINTS IN PLACE- NO COMPROMISE NOTED IN CIRCULATION, MOBILITY, SENSATION, OR SKIN INTEGRITY. FALL AND ASPIRATION PRECAUTIONS IN PLACE. CONTACT AND DROPLET ISOLATION IMPLEMENTED. BED LOCKED AND IN LOWEST POSITION, SIDERAILS UP X 3. CALL LIGHT WITHIN REACH, WILL CONTINUE TO MONITOR PER POC.
[2020-04-15 20:00] VITALS: BP 123/75
[2020-04-15] MEDS: Dyna-Hex 2% Top Sol 2oz TOPIC SCH (20:28)
[2020-04-15] MEDS: Miralax 17gm pkt ORAL SCH (20:29)
[2020-04-15] MEDS: Maintenance Dose:Remdesivir 100mg/NS 230ml x 4 Doses IV SCH ×2 (21:27)
--- NOTE | 2020-04-15 22:00 | NUR ---
NURSE NOTES: INFORMED DR. STRANGE REGARDING 3 SECONDS OF PAROXYSMAL TACHYCARDIA WITH HR OF 140. PATIENT ASYMPTOMATIC. NNO PER DR. STRANGE.
[2020-04-16] VITALS: BP 121/70
[2020-04-16 04:00] VITALS: BP 116/71
--- NOTE | 2020-04-16 04:00 | NUR ---
NURSE NOTES: TEMPERATURE NOTED TO BE 99.5F (AXILLARY)- COOLING MEASURES INITIATED.
[2020-04-16] MEDS: D5 1/2NS w/KCl 20mEq 1,000 ML IV SCH (05:31)
[2020-04-16] MEDS: NovoLOG Insulin Flexpen SUBQ SCH ×4 (06:30→21:00)
--- NOTE | 2020-04-16 06:45 | NUR ---
NURSE NOTES: NGT PULLED OUT. RE-INSERTED IN RIGHT NARE, 55 CM. STAT ORDER FOR ABD X-RAY PLACED.
--- NOTE | 2020-04-16 07:15 | NUR ---
NURSE HAND-OFF REPORT: Important Events on Shift: NGT REMOVED AND REINSERTED, UNABLE TO DRAW BLOOD FROM TLC (INFORMED BARREL RIFLER HOOK- WILL DRAW PERIPHERALLY) Patient Status: STABLE Diet: GLUCERNA 1.2 @ 55 ML/HR VIA NGT Pending Orders: STAT ABD X-RAY FOR NGT PLACEMENT, EGD WITH POSSIBLE BX, PEG PLACEMENT WITH POSSIBLE FEDDING TUBE FOR 04/18 Pending Results/Labs: 04/16 AM LABS Pending MD notification:N/A Latest Vital Signs: Temperature 99.3 , Pulse 110 , B/P 116 /71 , Respiratory Rate 18 , O2 SAT 97 , Nasal Cannula, O2 Flow Rate 4.0 . Vital Sign Comment: STABLE, COOLING MEASURES APPLIED EKG Rhythm: Sinus Rhythm Rhythm change?: N MD Notified?: - MD Response: Latest Ortega Fall Score: 70 Fall Risk: High Risk Safety Measures: Call light Within Reach, Bed Alarm Zone 1, Side Rails Side Rails x3, Bed position Low and Locked. Fall Precautions: Yellow Socks Yellow Gown Door Sign Patient Fall Education Report given to VARUN OCONNELL.
--- NOTE | 2020-04-16 07:27 | Infectious Diseases Prog Note ---
Assessment/Plan Assessment: Septic Shock- SP COVID19 pneumonia- on 2l NC> hypoxic on ABG, now at 4L NC -04/12 CXR: Bilateral infiltrates, developing since 04/08/2020, likely on the basis of pneumonia. -04/08 CXR: Mild diffuse peribronchial thickening in the absence of airspace consolidation, which is nonspecific but can be seen with infectious/inflammatory airways disease in the appropriate clinical context. rapid covid pcr + UTI -04/09 ucx >100k VRE (E. faecium); S linezolid -04/08 u/a wbc tnct, nit neg, leuk +3; ucx <10k P, mirabilis (S Ceftriaxone, Zosyn), >100k gamma hemolytic strep Gram positive bacteremia- likely contaminant -04/08 Bcx 1/4 S. hominis, 2/4 S. auricularis ; 04/10 Bcx NGTD Low grade fever, SP No leukocytosis Vaginal bleeding -CT abd/p wo: Study limited due to lack of IV contrast. Pulmonary findings could represent multifocal pneumonia or aspiration.These findings could also represent viral pneumonia, although this is not highly specific pattern. Promin ent rectal stool burden with mild wall thickening could represent stercoral colitis in the proper context. Otherwise, diffuse large colonic stool burden could be a cause for pain. Left superior renal pole ill-defined mild hyperdensity could be a manifestation of chronic medical renal disease in the proper context. Consider outpatient CT adrenal glands to further evaluate indeterminate left adrenal 1.2 cm nodularity. Calcified fibroid uterus. Appendectomy. ROSA MARIA, SP AST elevation; improving inoperable endometrial adenocarcinoma sp brachytherapy 12/16/19 HTN CVA/TIA hx of DVT MDD HLD dysphagia Afib Dm2 chronic lacunar infarction w/ b/l ganglia and king radiata and L parietal lobe stroke hx of UTI [place] resident( [facility]) Plan: -Stop cefepime, s/p 7 day course -Cont PO Zyvox #5 for both GPC bacteremia and VRE UTi -Cont remdesivir #4/5- explained risks and benefits; patient agreed. CXR worsening, increasing O2 requirements and hypoxic on ABG --discussed with pharmacy staff and Dr Krause- awaiting approval -Cont dex 6mg daily -04/14 SP Cefepime #7/7 for Proteus UTI -04/12 SP IV Vancomycin #5 -f/u cx -Monitor CBC/CMP, temperatures -COVID19 isolation Thank you for this consultation. Will continue to follow along with you. Subjective Allergies: Coded Allergies: No Known Allergies (Unverified , 03/11/19) AF 4L NC NAD Objective Last 24 Hour Vital Signs Date Time Temp Pulse Resp B/P (MAP) Pulse Ox O2 Delivery O2 Flow Rate FiO2 04/16/20 04:00 99.3 110 18 116/71 (86) 97 04/16/20 04:00 101 04/16/20 00:00 98.1 114 18 121/70 (87) 98 04/16/20 00:00 100 04/15/20 21:00 Nasal Cannula 4.0 04/15/20 20:00 106 04/15/20 20:00 98.8 109 18 123/75 (91) 97 04/15/20 12:00 98.1 121 22 118/68 (85) 98 04/15/20 12:00 104 04/15/20 08:35 Nasal Cannula 4.0 04/15/20 08:00 99 04/15/20 08:00 97.5 76 18 133/79 (97) 98 82 Height (Feet): 5 Height (Inches): 6.00 Weight (Pounds): 160 Gen: NAD in bed HEENT: NCAT, EOMI, PERRL Pulm: BL chest rise Abd: Soft, NTND Ext: No c/c/e Neuro: Awake Laboratory Tests Test 04/15/20 20:49 POC Whole Blood Glucose 118 MG/DL (74-106) H Current Medications Medications (Trade) Dose Ordered Sig/Jere Route PRN Reason Start Time Stop Time Status Last Admin Dose Admin Acetaminophen (Tylenol) 650 mg Q4H PRN ORAL fever 04/08/20 19:00 05/08/20 18:59 04/12/20 00:27 Ascorbic Acid (Vitamin C) 500 mg TWICE A DAY ORAL 04/14/20 18:00 05/14/20 17:59 04/15/20 18:00 Cefepime HCl 2 gm/ Dextrose 110 ml @ 220 mls/hr Q12H IV 04/09/20 21:00 04/16/20 20:59 04/15/20 20:42 Chlorhexidine Gluconate (Geno-Hex 2%) 1 applic DAILY@2000 TOPIC 04/08/20 20:00 07/07/20 19:59 04/15/20 20:28 Dexamethasone (Decadron) 6 mg DAILY ORAL 04/12/20 15:15 04/21/20 09:01 04/15/20 09:00 Dextrose (Dextrose 50%) 25 ml Q30M PRN IV Hypoglycemia 04/09/20 07:45 07/08/20 07:44 04/11/20 16:12 Dextrose (Dextrose 50%) 50 ml Q30M PRN IV Hypoglycemia 04/09/20 07:45 07/08/20 07:44 Dextrose/ Electrolytes 1,000 ml @ 30 mls/hr Q24H IV 04/08/20 22:30 05/08/20 22:29 04/16/20 05:31 Enoxaparin Sodium (Lovenox) 40 mg DAILY SUBQ 04/14/20 20:00 07/13/20 19:59 04/15/20 09:00 Insulin Aspart (NovoLOG) BEFORE MEALS AND HS SUBQ 04/09/20 11:30 07/08/20 11:29 04/10/20 12:08 Linezolid (Zyvox) 600 mg EVERY 12 HOURS ORAL 04/12/20 15:00 04/17/20 14:59 04/15/20 20:29 Metoprolol Tartrate (Lopressor) 5 mg Q1H PRN IVP spb more than 120 04/08/20 19:00 07/07/20 18:59 Multivitamins (Multivitamins) 1 tab DAILY ORAL 04/15/20 09:00 05/15/20 08:59 04/15/20 09:00 Ondansetron HCl (Zofran) 4 mg Q6H PRN IVP Nausea & Vomiting 04/08/20 19:00 05/08/20 18:59 Pantoprazole (Protonix) 40 mg EVERY 12 HOURS IVP 04/10/20 21:00 05/10/20 20:59 04/15/20 20:29 Polyethylene Glycol (Miralax) 17 gm BEDTIME ORAL 04/09/20 21:00 05/09/20 20:59 04/15/20 20:29 Polyethylene Glycol (Miralax) 17 gm DAILYPRN PRN ORAL Constipation 04/08/20 19:00 05/08/20 18:59 Remdesivir 100 mg/ Sodium Chloride 250 ml @ 250 mls/hr Q24H IV 04/14/20 22:00 04/17/20 22:59 04/15/20 21:27 Zinc Sulfate (Zinc Sulfate) 220 mg DAILY ORAL 04/15/20 09:00 04/25/20 08:59 04/15/20 09:00 Savannah Powell M.D. Apr 16, 2020 07:27
--- NOTE | 2020-04-16 07:45 | NUR ---
NURSE NOTES: Pt is awake, obtunded, responds responds to physical stim with moan and withdrawal, breathing easily on 4 lpm nasal cannula, no evidence of SOB or pain. Vital signs stable with SR at 88 on monitor. IV access right Fem triple lumen with D5 1/2 NS + 20K running @ 30 ml/hr into one lumen. Other lumen flushed with 10 ml NS and locked. NG tube in place, right nostril at 55cm thais, taped in place, verified by auscultation, awaiting XR fo confirm placement. P 200 mattress on bed and running. Lowe cath in place, patent, patent, draining yellow urine with some blood clots into collection bag. Bed left in low position, side rails up x 3 and call light left near pt's hand.
[2020-04-16 08:00] VITALS: BP 138/79
--- NOTE | 2020-04-16 08:06 | Pulmonology Progress Note ---
Subjective ROS Limited/Unobtainable: No Constitutional: Reports: no symptoms HEENT: Repors: no symptoms Allergies: Coded Allergies: No Known Allergies (Unverified , 03/11/19) Subjective no fevers, + leuk on 4 L O2 via NC, no signs of resp distress Objective Last 24 Hour Vital Signs Date Time Temp Pulse Resp B/P (MAP) Pulse Ox O2 Delivery O2 Flow Rate FiO2 04/16/20 04:00 99.3 110 18 116/71 (86) 97 04/16/20 04:00 101 04/16/20 00:00 98.1 114 18 121/70 (87) 98 04/16/20 00:00 100 04/15/20 21:00 Nasal Cannula 4.0 04/15/20 20:00 106 04/15/20 20:00 98.8 109 18 123/75 (91) 97 04/15/20 12:00 98.1 121 22 118/68 (85) 98 04/15/20 12:00 104 04/15/20 08:35 Nasal Cannula 4.0 Intake and Output 04/15/20 04/16/20 19:00 07:00 Output Total 500 ml 600 ml Balance -500 ml -600 ml Output Urine Total 500 ml 600 ml General Appearance: WD/WN HEENT: normocephalic, atraumatic Respiratory: chest wall non-tender, lungs clear Breasts: no masses Cardiovascular: normal peripheral pulses Abdomen: normal bowel sounds, soft, non tender Extremities: no cyanosis 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, alert Laboratory Tests 04/15/20 20:49: POC Whole Blood Glucose 118H Current Medications Medications (Trade) Dose Ordered Sig/Jere Route PRN Reason Start Time Stop Time Status Last Admin Dose Admin Acetaminophen (Tylenol) 650 mg Q4H PRN ORAL fever 04/08/20 19:00 05/08/20 18:59 04/12/20 00:27 Ascorbic Acid (Vitamin C) 500 mg TWICE A DAY ORAL 04/14/20 18:00 05/14/20 17:59 04/15/20 18:00 Chlorhexidine Gluconate (Geno-Hex 2%) 1 applic DAILY@1999 TOPIC 04/08/20 20:00 1220 19:59 04/15/20 20:28 Dexamethasone (Decadron) 6 mg DAILY ORAL 04/12/20 15:15 04/21/20 09:01 04/15/20 09:00 Dextrose (Dextrose 50%) 25 ml Q30M PRN IV Hypoglycemia 04/09/20 07:45 07/08/20 07:44 04/11/20 16:12 Dextrose (Dextrose 50%) 50 ml Q30M PRN IV Hypoglycemia 04/09/20 07:45 07/08/20 07:44 Dextrose/ Electrolytes 1,000 ml @ 30 mls/hr Q24H IV 04/08/20 22:30 05/08/20 22:29 04/16/20 05:31 Enoxaparin Sodium (Lovenox) 40 mg DAILY SUBQ 04/14/20 20:00 07/13/20 19:59 04/15/20 09:00 Insulin Aspart (NovoLOG) BEFORE MEALS AND HS SUBQ 04/09/20 11:30 07/08/20 11:29 04/10/20 12:08 Linezolid (Zyvox) 600 mg EVERY 12 HOURS ORAL 04/12/20 15:00 04/17/20 14:59 04/15/20 20:29 Metoprolol Tartrate (Lopressor) 5 mg Q1H PRN IVP spb more than 120 04/08/20 19:00 07/07/20 18:59 Multivitamins (Multivitamins) 1 tab DAILY ORAL 04/15/20 09:00 05/15/20 08:59 04/15/20 09:00 Ondansetron HCl (Zofran) 4 mg Q6H PRN IVP Nausea & Vomiting 04/08/20 19:00 05/08/20 18:59 Pantoprazole (Protonix) 40 mg EVERY 12 HOURS IVP 04/10/20 21:00 05/10/20 20:59 04/15/20 20:29 Polyethylene Glycol (Miralax) 17 gm BEDTIME ORAL 04/09/20 21:00 05/09/20 20:59 04/15/20 20:29 Polyethylene Glycol (Miralax) 17 gm DAILYPRN PRN ORAL Constipation 04/08/20 19:00 05/08/20 18:59 Remdesivir 100 mg/ Sodium Chloride 250 ml @ 250 mls/hr Q24H IV 04/14/20 22:00 04/17/20 22:59 04/15/20 21:27 Zinc Sulfate (Zinc Sulfate) 220 mg DAILY ORAL 04/15/20 09:00 04/25/20 08:59 04/15/20 09:00 Assessment/Plan Assessment/Plan ASSESSMENT Septic and hemorrhagic shock Acute hypoxemic respiratory failure COVID-19 pneumonia UTI with VRE Vaginal bleeding Rectal bleeding/black stools Anemia Endometrial CA Dysphagia Aspiration risk DM History of CVA Electrolyte abnormalities Sinus tachycardia PLAN OF CARE tele isolation on Remdesivir and steroid abx as per ID O2 titrate to keep sat above 92% pulm toilet fup with CXR trend inflammatory markers aspiration precaution, nutritional support with NG tube PEG planned for Saturday DVT and GI prophylaxis monitor H&H with goal to keep Hgb> 7 correct electrolytes as needed BS management with SSI Echo with pEF 55% seen and evaluated by neuro EEG pending case discussed and evaluated by supervising physician Marta Hernández NP Apr 16, 2020 08:06
[2020-04-16 08:41] LABS: BASOPHILS % (AUTO) 2.8 % (0.0-2.0); EOSINOPHILS % (AUTO) 0.2 % (0.0-3.0); HEMATOCRIT 30.1 % (37.0-47.0); HEMOGLOBIN 9.9 G/DL (12.0-16.0); LYMPHOCYTES % (AUTO) 8.9 % (20.0-45.0); MEAN CORPUSCULAR VOLUME 87 FL (80-99); MONOCYTES % (AUTO) 8.5 % (1.0-10.0); NEUTROPHILS % (AUTO) 79.6 % (45.0-75.0); PLATELET COUNT 339 K/UL (150-450); RED BLOOD COUNT 3.47 M/UL (4.20-5.40); RED CELL DISTRIBUTION WIDTH 13.4 % (11.6-14.8); WHITE BLOOD COUNT 14.1 K/UL (4.8-10.8)
--- NOTE | 2020-04-16 09:13 | Diagnostic Imaging Report ---
EXAM: XR Abdomen, 2 Views CLINICAL HISTORY: NGT TECHNIQUE: Frontal view of the abdomen/pelvis with upright view of the abdomen. COMPARISON: No relevant prior studies available. FINDINGS/IMPRESSION: Enteric feeding tube terminates in the stomach. Nonobstructed bowel gas pattern. Mild fecal retention. Calcified fibroid in the left pelvis measuring 4.4 x 4.5 cm. Left lung base atelectasis.
[2020-04-16 09:14] LABS: ALANINE AMINOTRANSFERASE 23 U/L (12-78); ALBUMIN 2.3 G/DL (3.4-5.0); ALBUMIN/GLOBULIN RATIO 0.8 (1.0-2.7); ALKALINE PHOSPHATASE 93 U/L (46-116); ANION GAP 8 mmol/L (5-15); ASPARTATE AMINO TRANSFERASE 22 U/L (15-37); BILIRUBIN,DIRECT < 0.1 MG/DL (0.0-0.3); BILIRUBIN,TOTAL 0.4 MG/DL (0.2-1.0); BLOOD UREA NITROGEN 10 mg/dL (7-18); CALCIUM 8.8 MG/DL (8.5-10.1); CARBON DIOXIDE 24 MMOL/L (21-32); CHLORIDE 103 MMOL/L (98-107); CREATININE 0.5 MG/DL (0.55-1.30); POTASSIUM 3.8 MMOL/L (3.5-5.1); SODIUM 135 MMOL/L (136-145)
[2020-04-16] MEDS: Ascorbic Acid 500mg tab ORAL SCH ×2 (09:28→17:56)
[2020-04-16] MEDS: Pantoprazole Inj IVP SCH ×2 (09:28→21:59)
[2020-04-16] MEDS: Zinc Sulfate 220mg ORAL SCH (09:28)
[2020-04-16] MEDS: Enoxaparin 40mg Inj SUBQ SCH (09:29)
[2020-04-16 12:00] VITALS: BP 135/66
--- NOTE | 2020-04-16 12:06 | Nephrology Progress Note ---
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 Remains stable from renal standpoint of view. Continue per consultants. April 15: Labs reviewed. Electrolyte abnormalities addressed. Continue as is. April 14: Labs reviewed. Low phosphorus and low magnesium corrected. Continue per consultants. Blood pressure remains stable. April 13: Electrolytes within normal limit. Renal parameters within normal limit. Continue per consultants. April 12: Electrolyte abnormalities noted and addressed. Continue per consultants Magnesium IV supplement as needed Potassium IV supplement as needed Phosphorus IV supplement as needed Monitor electrolytes Monitor hemoglobin hematocrit IV Protonix Adjust IV fluid Antibiotics per consultants Subjective ROS Limited/Unobtainable: No Constitutional: Reports: malaise Objective Objective Last 24 Hour Vital Signs Date Time Temp Pulse Resp B/P (MAP) Pulse Ox O2 Delivery O2 Flow Rate FiO2 04/16/20 09:00 Nasal Cannula 4.0 04/16/20 08:00 98.2 112 18 138/79 (98) 98 04/16/20 08:00 98 04/16/20 04:00 99.3 110 18 116/71 (86) 97 04/16/20 04:00 101 04/16/20 00:00 98.1 114 18 121/70 (87) 98 04/16/20 00:00 100 04/15/20 21:00 Nasal Cannula 4.0 04/15/20 20:00 106 04/15/20 20:00 98.8 109 18 123/75 (91) 97 Intake and Output 04/15/20 04/16/20 19:00 07:00 Output Total 500 ml 600 ml Balance -500 ml -600 ml Output Urine Total 500 ml 600 ml Laboratory Tests 04/15/20 20:49: POC Whole Blood Glucose 118H 04/16/20 07:20: White Blood Count 14.1H, Red Blood Count 3.47L, Hemoglobin 9.9L, Hematocrit 30. 1L, Mean Corpuscular Volume 87, Mean Corpuscular Hemoglobin 28.7, Mean Corpuscular Hemoglobin Concent 33.0, Red Cell Distribution Width 13.4, Platelet Count 339, Mean Platelet Volume 5.3L, Neutrophils (%) (Auto) 79.6H, Lymphocytes (%) (Auto) 8.9L, Monocytes (%) (Auto) 8.5, Eosinophils (%) (Auto) 0.2, Basophils (%) (Auto) 2.8H, Sodium Level 135L, Potassium Level 3.8, Chloride Level 103, Carbon Dioxide Level 24, Anion Gap 8, Blood Urea Nitrogen 10, Creatinine 0.5L, Estimat Glomerular Filtration Rate > 60, Glucose Level 104, Calcium Level 8.8, Total Bilirubin 0.4, Direct Bilirubin < 0.1, Aspartate Amino Transf (AST/SGOT) 22, Alanine Aminotransferase (ALT/SGPT) 23, Alkaline Phosphatase 93, Total Protein 5.3L, Albumin 2.3L, Globulin 3.0, Albumin/Globulin Ratio 0.8L Height (Feet): 5 Height (Inches): 6.00 Weight (Pounds): 160 General Appearance: no apparent distress Cardiovascular: tachycardia Respiratory/Chest: decreased breath sounds Abdomen: soft Objective No change Steven Edwards MD Apr 16, 2020 12:06
--- NOTE | 2020-04-16 12:28 | Internal Med Progress Note ---
Subjective Date of Service: Apr 16, 2020 Physician Name KatherineTariq Attending Physician Dewayne Mendoza MD Current Medications Medications (Trade) Dose Ordered Sig/Jere Route PRN Reason Start Time Stop Time Status Last Admin Dose Admin Acetaminophen (Tylenol) 650 mg Q4H PRN ORAL fever 04/08/20 19:00 05/08/20 18:59 04/12/20 00:27 Ascorbic Acid (Vitamin C) 500 mg TWICE A DAY ORAL 04/14/20 18:00 05/14/20 17:59 04/16/20 09:28 Chlorhexidine Gluconate (Geno-Hex 2%) 1 applic DAILY@2000 TOPIC 04/08/20 20:00 07/07/20 19:59 04/15/20 20:28 Dexamethasone (Decadron) 6 mg DAILY ORAL 04/12/20 15:15 04/21/20 09:01 04/16/20 09:28 Dextrose (Dextrose 50%) 25 ml Q30M PRN IV Hypoglycemia 04/09/20 07:45 07/08/20 07:44 04/11/20 16:12 Dextrose (Dextrose 50%) 50 ml Q30M PRN IV Hypoglycemia 04/09/20 07:45 07/08/20 07:44 Dextrose/ Electrolytes 1,000 ml @ 30 mls/hr Q24H IV 04/08/20 22:30 05/08/20 22:29 04/16/20 05:31 Enoxaparin Sodium (Lovenox) 40 mg DAILY SUBQ 04/14/20 20:00 07/13/20 19:59 04/16/20 09:29 Insulin Aspart (NovoLOG) BEFORE MEALS AND HS SUBQ 04/09/20 11:30 07/08/20 11:29 04/10/20 12:08 Linezolid (Zyvox) 600 mg EVERY 12 HOURS ORAL 04/12/20 15:00 04/17/20 14:59 04/16/20 09:28 Metoprolol Tartrate (Lopressor) 5 mg Q1H PRN IVP spb more than 120 04/08/20 19:00 07/07/20 18:59 Multivitamins (Multivitamins) 1 tab DAILY ORAL 04/15/20 09:00 05/15/20 08:59 04/16/20 09:28 Ondansetron HCl (Zofran) 4 mg Q6H PRN IVP Nausea & Vomiting 04/08/20 19:00 05/08/20 18:59 Pantoprazole (Protonix) 40 mg EVERY 12 HOURS IVP 04/10/20 21:00 05/10/20 20:59 04/16/20 09:28 Polyethylene Glycol (Miralax) 17 gm BEDTIME ORAL 04/09/20 21:00 05/09/20 20:59 04/15/20 20:29 Polyethylene Glycol (Miralax) 17 gm DAILYPRN PRN ORAL Constipation 04/08/20 19:00 05/08/20 18:59 Remdesivir 100 mg/ Sodium Chloride 250 ml @ 250 mls/hr Q24H IV 04/14/20 22:00 04/17/20 22:59 04/15/20 21:27 Zinc Sulfate (Zinc Sulfate) 220 mg DAILY ORAL 04/15/20 09:00 04/25/20 08:59 04/16/20 09:28 Allergies: Coded Allergies: No Known Allergies (Unverified , 03/11/19) ROS Limited/Unobtainable: No Constitutional: Reports: no symptoms HEENT: Reports: no symptoms Cardiovascular: Reports: no symptoms Respiratory: Reports: no symptoms Gastrointestinal/Abdominal: Reports: no symptoms Genitourinary: Reports: no symptoms Neurologic/Psychiatric: Reports: no symptoms Subjective 64 YO F with inoperable uterine cancer admitted with tachycardia. Now atrial fibrillation with rapid ventricular rate. Also COVID 19 positive. Cover for Int Jerome-DR Mendoza. Step down unit Objective Last Vital Signs Date Time Temp Pulse Resp B/P (MAP) Pulse Ox O2 Delivery O2 Flow Rate FiO2 04/16/20 09:00 Nasal Cannula 4.0 04/16/20 08:00 98.2 112 18 138/79 (98) 98 04/14/20 19:42 28 Laboratory Tests Test 04/15/20 20:49 04/16/20 07:20 POC Whole Blood Glucose 118 MG/DL (74-106) H White Blood Count 14.1 K/UL (4.8-10.8) H Red Blood Count 3.47 M/UL (4.20-5.40) L Hemoglobin 9.9 G/DL (12.0-16.0) L Hematocrit 30.1 % (37.0-47.0) L Mean Corpuscular Volume 87 FL (80-99) Mean Corpuscular Hemoglobin 28.7 PG (27.0-31.0) Mean Corpuscular Hemoglobin Concent 33.0 G/DL (32.0-36.0) Red Cell Distribution Width 13.4 % (11.6-14.8) Platelet Count 339 K/UL (150-450) Mean Platelet Volume 5.3 FL (6.5-10.1) L Neutrophils (%) (Auto) 79.6 % (45.0-75.0) H Lymphocytes (%) (Auto) 8.9 % (20.0-45.0) L Monocytes (%) (Auto) 8.5 % (1.0-10.0) Eosinophils (%) (Auto) 0.2 % (0.0-3.0) Basophils (%) (Auto) 2.8 % (0.0-2.0) H Sodium Level 135 MMOL/L (136-145) L Potassium Level 3.8 MMOL/L (3.5-5.1) Chloride Level 103 MMOL/L (98-107) Carbon Dioxide Level 24 MMOL/L (21-32) Anion Gap 8 mmol/L (5-15) Blood Urea Nitrogen 10 mg/dL (7-18) Creatinine 0.5 MG/DL (0.55-1.30) L Estimat Glomerular Filtration Rate > 60 mL/min (>60) Glucose Level 104 MG/DL (74-106) Calcium Level 8.8 MG/DL (8.5-10.1) Total Bilirubin 0.4 MG/DL (0.2-1.0) Direct Bilirubin < 0.1 MG/DL (0.0-0.3) Aspartate Amino Transf (AST/SGOT) 22 U/L (15-37) Alanine Aminotransferase (ALT/SGPT) 23 U/L (12-78) Alkaline Phosphatase 93 U/L (46-116) Total Protein 5.3 G/DL (6.4-8.2) L Albumin 2.3 G/DL (3.4-5.0) L Globulin 3.0 g/dL Albumin/Globulin Ratio 0.8 (1.0-2.7) L Intake and Output 04/15/20 04/16/20 19:00 07:00 Output Total 500 ml 600 ml Balance -500 ml -600 ml Output Urine Total 500 ml 600 ml Objective PHYSICAL EXAMINATION: GENERAL: The patient awake, responsive, however altered and confused. The patient appears to be paler and chronically-ill appearing. HEAD AND NECK: Pupils are equal and reactive to light. Extraocular movements are intact. Neck was supple. No JVD. LUNGS: Bilateral air entry. Decreased air in the bases. HEART: S1, S2. Tachycardic, irregular. No murmur or gallop was appreciated. ABDOMEN: Soft, nondistended. Tenderness on the lower abdominal area. Mildly obese. EXTREMITIES: No cyanosis, clubbing, or edema. GENITOURINARY: The patient noted to have Lowe catheter with dark red urine collection in a Lowe catheter. NEUROLOGIC: Cranial nerves II through XII grossly intact. The patient moving all extremities equally. Sensory is intact. Gait was not able to assess due to the patient's status. RECTAL: Refused and deferred. PSYCHIATRIC: Mood and affect, unable to obtain due to the patient's status. Assessment/Plan Assessment/Plan ASSESSMENT: 1. COVID-19 pneumonia. 2. Altered mental status, most likely secondary to toxic metabolic encephalopathy. 3. Atrial fibrillation with rapid ventricular rate. 4. Anemia most likely secondary to acute blood loss. 5. Sepsis secondary to urinary tract infection as well as pneumonia. 6. Vaginal bleeding. 7. UTI=VRE 8. History of diabetes type 2. 9. Inoperable endometrial adenocarcinoma, status post brachytherapy. 10. Hypertension. 11. History of lacunar infarction. PLAN: 1. Admit the patient to ICU. 2. Dr. Buitrago=Pulmonary/Critical Care 3. Dr. Wale Wu = Cardiology. 4. antibiotic=vancomycin linezolid and cefepime. 5. Admit to droplet isolation COVID-19 room. 6. Code status =Full Code. 7. DVT prophylaxis SCD. 8. S/P transfusion 2 units of packed RBC. 9. Continue Levophed as needed to support the blood pressure 10. ID=Tariq Márquez MD Apr 16, 2020 12:28
[2020-04-16 16:00] VITALS: BP 120/68
--- NOTE | 2020-04-16 16:27 | General Progress Note ---
Subjective Allergies: Coded Allergies: No Known Allergies (Unverified , 03/11/19) Subjective Above noted d/w clinical staff pharmacist tolerating TF Objective Last 24 Hour Vital Signs Date Time Temp Pulse Resp B/P (MAP) Pulse Ox O2 Delivery O2 Flow Rate FiO2 04/16/20 12:00 103 04/16/20 12:00 99.5 123 18 135/66 (89) 99 04/16/20 09:00 Nasal Cannula 4.0 04/16/20 08:00 98.2 112 18 138/79 (98) 98 04/16/20 08:00 98 04/16/20 04:00 99.3 110 18 116/71 (86) 97 04/16/20 04:00 101 04/16/20 00:00 98.1 114 18 121/70 (87) 98 04/16/20 00:00 100 04/15/20 21:00 Nasal Cannula 4.0 04/15/20 20:00 106 04/15/20 20:00 98.8 109 18 123/75 (91) 97 Intake and Output 04/15/20 04/16/20 19:00 07:00 Output Total 500 ml 600 ml Balance -500 ml -600 ml Output Urine Total 500 ml 600 ml Laboratory Tests 04/15/20 20:49: POC Whole Blood Glucose 118H 04/16/20 07:20: White Blood Count 14.1H, Red Blood Count 3.47L, Hemoglobin 9.9L, Hematocrit 30.1L, Mean Corpuscular Volume 87, Mean Corpuscular Hemoglobin 28.7, Mean Corpuscular Hemoglobin Concent 33.0, Red Cell Distribution Width 13.4, Platelet Count 339, Mean Platelet Volume 5.3L, Neutrophils (%) (Auto) 79.6H, Lymphocytes (%) (Auto) 8.9L, Monocytes (%) (Auto) 8.5, Eosinophils (%) (Auto) 0.2, Basophils (%) (Auto) 2.8H, Sodium Level 135L, Potassium Level 3.8, Chloride Level 103, Carbon Dioxide Level 24, Anion Gap 8, Blood Urea Nitrogen 10, Creatinine 0.5L, Estimat Glomerular Filtration Rate > 60, Glucose Level 104, Calcium Level 8.8, Total Bilirubin 0.4, Direct Bilirubin < 0.1, Aspartate Amino Transf (AST/SGOT) 22, Alanine Aminotransferase (ALT/SGPT) 23, Alkaline Phosphatase 93, Total Protein 5.3L, Albumin 2.3L, Globulin 3.0, Albumin/Globulin Ratio 0.8L Height (Feet): 5 Height (Inches): 6.00 Weight (Pounds): 160 Objective Debilitated elderly woman NCAT, (+) NGT supple CTA RR abd soft NT ND no edema OBS Assessment/Plan Status: stable, unchanged Assessment/Plan: Assessment/Plan Assessment/Plan: 1. History of hypertension. 2. Diabetes. 3. CVA. 4. UTI. 5. Colitis. 6. Endometrial cancer. hgb 10 no recurrent gib passed swallow eval on oral diet still poor po intake d/w her sister>>> plan peg on saturday NGTF for now Magdi Pacheco MD Apr 16, 2020 16:27
--- NOTE | 2020-04-16 17:10 | NUR ---
NURSE NOTES: Femoral line removed. Sutures cut and removed, catheter withdrawal while keeping direct pressure on the site for 5 minutes by the clock. No evidence of hemorrhage or oozing. Sterile 4x4 folded and applied as pressure dressing, held by silk tape.
[2020-04-16] MEDS ORDERED: NS 275ml ONE (18:39)
--- NOTE | 2020-04-16 19:30 | NUR ---
NURSE NOTES: Important Events on Shift: Received report from Alvarado Schmitz RN. Pt is lethargic, responds to voice with moans, able to mouth her name. No signs or symptoms of pain or distress noted at this time. Pt appears to be resting comfortably at this time. Femoral triple lumen removed during AM shift. Pressure bandage in place, no signs of oozing or bleeding noted at this time. Will continue plan of care and monitor close monitoring. Patient Status: stable Diet: Glucerna 1.2 @ 55ml/hr via NGT Pending Orders: collect OB stool and urine specimen Pending Results/Labs: Ferritin, CRP, CMP, CBC, billirubin Pending MD notification: None Latest Vital Signs: Temperature 98.1 , Pulse 69 , B/P 129 /79 , Respiratory Rate 16 , O2 SAT 97 , Nasal Cannula, O2 Flow Rate 4.0 . Vital Sign Comment: stable EKG Rhythm: Sinus Rhythm Rhythm change?: N MD Notified?: - MD Response: - Latest Ortega Fall Score: 55 Fall Risk: High Risk Safety Measures: Call light Within Reach, Bed Alarm Zone 1, Side Rails Side Rails x3, Bed position Low and Locked. Fall Precautions: yes Yellow Socks yes Yellow Gown yes Door Sign yes Patient Fall Education yes
--- NOTE | 2020-04-16 19:51 | Surgery Progress Note ---
Surgery Progress Note Subjective Additional Comments kub noted wbc 14k h/h stable no n/v Objective Last 24 Hour Vital Signs Date Time Temp Pulse Resp B/P (MAP) Pulse Ox O2 Delivery O2 Flow Rate FiO2 04/16/20 16:00 97.3 100 18 120/68 (85) 100 82 04/16/20 16:00 106 04/16/20 12:00 103 04/16/20 12:00 99.5 123 18 135/66 (89) 99 04/16/20 09:00 Nasal Cannula 4.0 04/16/20 08:00 98.2 112 18 138/79 (98) 98 04/16/20 08:00 98 04/16/20 04:00 99.3 110 18 116/71 (86) 97 04/16/20 04:00 101 04/16/20 00:00 98.1 114 18 121/70 (87) 98 04/16/20 00:00 100 04/15/20 21:00 Nasal Cannula 4.0 04/15/20 20:00 106 04/15/20 20:00 98.8 109 18 123/75 (91) 97 I&O Intake and Output 04/15/20 04/16/20 19:00 07:00 Output Total 500 ml 600 ml Balance -500 ml -600 ml Output Urine Total 500 ml 600 ml Dressing: other Wound: other Cardiovascular: RSR Respiratory: decreased breath sounds Abdomen: soft, non-tender, present bowel sounds Extremities: no cyanosis Laboratory Tests Test 04/15/20 20:49 04/16/20 07:20 POC Whole Blood Glucose 118 MG/DL (74-106) H White Blood Count 14.1 K/UL (4.8-10.8) H Red Blood Count 3.47 M/UL (4.20-5.40) L Hemoglobin 9.9 G/DL (12.0-16.0) L Hematocrit 30.1 % (37.0-47.0) L Mean Corpuscular Volume 87 FL (80-99) Mean Corpuscular Hemoglobin 28.7 PG (27.0-31.0) Mean Corpuscular Hemoglobin Concent 33.0 G/DL (32.0-36.0) Red Cell Distribution Width 13.4 % (11.6-14.8) Platelet Count 339 K/UL (150-450) Mean Platelet Volume 5.3 FL (6.5-10.1) L Neutrophils (%) (Auto) 79.6 % (45.0-75.0) H Lymphocytes (%) (Auto) 8.9 % (20.0-45.0) L Monocytes (%) (Auto) 8.5 % (1.0-10.0) Eosinophils (%) (Auto) 0.2 % (0.0-3.0) Basophils (%) (Auto) 2.8 % (0.0-2.0) H Sodium Level 135 MMOL/L (136-145) L Potassium Level 3.8 MMOL/L (3.5-5.1) Chloride Level 103 MMOL/L (98-107) Carbon Dioxide Level 24 MMOL/L (21-32) Anion Gap 8 mmol/L (5-15) Blood Urea Nitrogen 10 mg/dL (7-18) Creatinine 0.5 MG/DL (0.55-1.30) L Estimat Glomerular Filtration Rate > 60 mL/min (>60) Glucose Level 104 MG/DL (74-106) Calcium Level 8.8 MG/DL (8.5-10.1) Total Bilirubin 0.4 MG/DL (0.2-1.0) Direct Bilirubin < 0.1 MG/DL (0.0-0.3) Aspartate Amino Transf (AST/SGOT) 22 U/L (15-37) Alanine Aminotransferase (ALT/SGPT) 23 U/L (12-78) Alkaline Phosphatase 93 U/L (46-116) Total Protein 5.3 G/DL (6.4-8.2) L Albumin 2.3 G/DL (3.4-5.0) L Globulin 3.0 g/dL Albumin/Globulin Ratio 0.8 (1.0-2.7) L Plan Problems: (1) Hematuria (2) Rectal bleeding Assessment & Plan: [age]-year-old female identified to have rectal bleeding on admission. GI aware surgery aware no active bleeding at this time hemoglobin noted. Transfuse PRBC as needed. Pending scope consideration. passed swallow no bleeding on diet may need peg as per GI cont diet supplements added for wound care DAILY ESTIMATED NEEDS: Needs based on Obesity, cardiac/ 67.6kg abw 22-27 kcals/kg 9396-5127 total kcals 1-1.5 g protein/kg 68-101 g total protein 25-30 mL/kg 0957-5639 total fluid mLs NUTRITION DIAGNOSIS: * Swallowing difficulty R/T dysphagia, h/o CVA, clinical condition as evidenced by seen by CHECK WEIGHER w/ rec for pureed moist texture w/ thin liquids. 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 CURRENT DIET:[facility] MED, pureed moist w/ thin liquids PO DIET RECOMMENDATIONS: Liberalized REGULAR w/ poor PO ([facility] MED+LOW NA w/ PO intake >50%) ADDITIONAL RECOMMENDATIONS: * Per SNF: HT=64" QA=487lmd (04/05/20) -> rec daily calibrated bedscale wt, monitor trend Possible wt loss of 68 lbs/29% in 13 months * W/ poor PO intake, add Glucerna TID w/ meals * Wound healing: Add MVI x 1, Vit C 500mg BID, ZnSO4 220mg QD x 10 days Woody (QD for now- increase to BID w/ good acceptance) added to tray * Monitor lytes, replete as needed (low k and mag) (3) Hemorrhagic shock (4) Acute CVA (cerebrovascular accident) (5) Septic shock (6) Anemia (7) Sepsis (8) Altered mental status (9) Atrial fibrillation with RVR (10) COVID-19 Assessment & Plan: ++ as per ID and pulm cxr noted (11) History of CVA (cerebrovascular accident) (12) Decubitus skin ulcer Assessment & Plan: Patient identified on admission to have a 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 apply therahoney to areas of slough. apply mositure barrier paste on the periwound. cover with optifoam dressing. change Q3D and PRN. Apply cavilon on both heels& malleoli. Cover each site with optifoam dressing. Change Q7D and PRN. Elian Ren Apr 16, 2020 19:51
[2020-04-16 20:00] VITALS: BP 150/75
[2020-04-16] MEDS: Dyna-Hex 2% Top Sol 2oz TOPIC SCH (20:00)
[2020-04-16] MEDS: Miralax 17gm pkt ORAL SCH ×2 (21:00→21:59)
[2020-04-16] MEDS: Maintenance Dose:Remdesivir 100mg/NS 230ml x 4 Doses IV SCH ×2 (22:00)
[2020-04-17] VITALS: BP 129/79
[2020-04-17 04:00] VITALS: BP 124/70
[2020-04-17] MEDS: D5 1/2NS w/KCl 20mEq 1,000 ML IV SCH ×2 (05:50→17:52)
[2020-04-17] MEDS: NovoLOG Insulin Flexpen SUBQ SCH ×3 (06:30→17:49)
--- NOTE | 2020-04-17 07:11 | NUR ---
NURSE HAND-OFF REPORT: Important Events on Shift: OB stool and urine specimen collected Patient Status: stable Diet: Glucerna 1.2 @ 55ml/hr Pending Orders: PEG placement 04/18, consents signed Pending Results/Labs: ferritin, CRP, CMP, CBC, billirubin Pending MD notification: Latest Vital Signs: Temperature 97.9 , Pulse 71 , B/P 124 /70 , Respiratory Rate 16 , O2 SAT 97 , Nasal Cannula, O2 Flow Rate 4.0 . Vital Sign Comment: stable EKG Rhythm: Sinus Rhythm Rhythm change?: N MD Notified?: - MD Response: Latest Ortega Fall Score: 55 Fall Risk: High Risk Safety Measures: Call light Within Reach, Bed Alarm Zone 1, Side Rails Side Rails x3, Bed position Low and Locked. Fall Precautions: yes Yellow Socks yes Yellow Gown yes Door Sign yes Patient Fall Education yes Report given to Alvarado Schmitz RN
--- NOTE | 2020-04-17 07:53 | Surgery Progress Note ---
Surgery Progress Note Subjective Additional Comments no acute events resting comfortable labs pending no n/v/f/c no bleeding Objective Last 24 Hour Vital Signs Date Time Temp Pulse Resp B/P (MAP) Pulse Ox O2 Delivery O2 Flow Rate FiO2 04/17/20 04:00 97.9 71 16 124/70 (88) 97 04/17/20 04:00 93 04/17/20 00:00 98.1 69 16 129/79 (96) 97 04/16/20 21:00 Nasal Cannula 4.0 04/16/20 20:00 97.7 77 18 150/75 (100) 97 04/16/20 16:00 97.3 100 18 120/68 (85) 100 82 04/16/20 16:00 106 04/16/20 12:00 103 04/16/20 12:00 99.5 123 18 135/66 (89) 99 04/16/20 09:00 Nasal Cannula 4.0 04/16/20 08:00 98.2 112 18 138/79 (98) 98 04/16/20 08:00 98 I&O Intake and Output 04/16/20 04/17/20 19:00 07:00 Intake Total 305 ml Output Total 450 ml 900 ml Balance -450 ml -595 ml Free Water 250 ml Tube Feeding 55 ml Output Urine Total 450 ml 900 ml # Bowel Movements 2 Dressing: other Wound: other Cardiovascular: RSR Respiratory: decreased breath sounds Abdomen: soft, non-tender, present bowel sounds Extremities: no tenderness, no cyanosis Laboratory Tests Test 04/17/20 06:48 POC Whole Blood Glucose 105 MG/DL (74-106) Plan Problems: (1) Hematuria (2) Rectal bleeding Assessment & Plan: [age]-year-old female identified to have rectal bleeding on admission. GI aware surgery aware no active bleeding at this time hemoglobin noted. Transfuse PRBC as needed. Pending scope consideration. passed swallow no bleeding on diet may need peg as per GI cont diet supplements added for wound care DAILY ESTIMATED NEEDS: Needs based on Obesity, cardiac/ 67.6kg abw 22-27 kcals/kg 2923-1096 total kcals 1-1.5 g protein/kg 68-101 g total protein 25-30 mL/kg 3207-3137 total fluid mLs NUTRITION DIAGNOSIS: * Swallowing difficulty R/T dysphagia, h/o CVA, clinical condition as evidenced by seen by COMPUTER INSTALLATION ENGINEER w/ rec for pureed moist texture w/ thin liquids. 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 CURRENT DIET:[facility] MED, pureed moist w/ thin liquids PO DIET RECOMMENDATIONS: Liberalized REGULAR w/ poor PO ([facility] MED+LOW NA w/ PO intake >50%) ADDITIONAL RECOMMENDATIONS: * Per SNF: HT=64" IW=225khz (04/05/20) -> rec daily calibrated bedscale wt, monitor trend Possible wt loss of 68 lbs/29% in 13 months * W/ poor PO intake, add Glucerna TID w/ meals * Wound healing: Add MVI x 1, Vit C 500mg BID, ZnSO4 220mg QD x 10 days Woody (QD for now- increase to BID w/ good acceptance) added to tray * Monitor lytes, replete as needed (low k and mag) (3) Hemorrhagic shock (4) Acute CVA (cerebrovascular accident) (5) Septic shock (6) Anemia (7) Sepsis (8) Altered mental status (9) Atrial fibrillation with RVR (10) COVID-19 Assessment & Plan: ++ as per ID and pulm cxr noted (11) History of CVA (cerebrovascular accident) (12) Decubitus skin ulcer Assessment & Plan: Patient identified on admission to have a 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 apply therahoney to areas of slough. apply mositure barrier paste on the periwound. cover with optifoam dressing. change Q3D and PRN. Apply cavilon on both heels& malleoli. Cover each site with optifoam dressing. Change Q7D and PRN. Elian Ren Apr 17, 2020 07:53
[2020-04-17 08:00] VITALS: BP 161/86
--- NOTE | 2020-04-17 09:26 | Nephrology Progress Note ---
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 Stable from renal standpoint of view April 16: Labs reviewed. Remains stable from renal standpoint of view. Continue per consultants. April 15: Labs reviewed. Electrolyte abnormalities addressed. Continue as is. April 14: Labs reviewed. Low phosphorus and low magnesium corrected. Continue per consultants. Blood pressure remains stable. April 13: Electrolytes within normal limit. Renal parameters within normal limit. Continue per consultants. April 12: Electrolyte abnormalities noted and addressed. Continue per consultants Magnesium IV supplement as needed Potassium IV supplement as needed Phosphorus IV supplement as needed Monitor electrolytes Monitor hemoglobin hematocrit IV Protonix Adjust IV fluid Antibiotics per consultants Subjective ROS Limited/Unobtainable: No Constitutional: Reports: malaise Objective Objective Last 24 Hour Vital Signs Date Time Temp Pulse Resp B/P (MAP) Pulse Ox O2 Delivery O2 Flow Rate FiO2 04/17/20 08:00 97 04/17/20 08:00 97.7 82 16 161/86 (111) 94 04/17/20 04:00 97.9 71 16 124/70 (88) 97 04/17/20 04:00 93 04/17/20 00:00 98.1 69 16 129/79 (96) 97 04/16/20 21:00 Nasal Cannula 4.0 04/16/20 20:00 97.7 77 18 150/75 (100) 97 04/16/20 16:00 97.3 100 18 120/68 (85) 100 82 04/16/20 16:00 106 04/16/20 12:00 103 04/16/20 12:00 99.5 123 18 135/66 (89) 99 Intake and Output 04/16/20 04/17/20 19:00 07:00 Intake Total 305 ml Output Total 450 ml 900 ml Balance -450 ml -595 ml Free Water 250 ml Tube Feeding 55 ml Output Urine Total 450 ml 900 ml # Bowel Movements 2 Laboratory Tests 04/17/20 06:48: POC Whole Blood Glucose 105 04/17/20 09:10: White Blood Count [Pending], Red Blood Count [Pending], Hemoglobin [Pending], Hematocrit [Pending], Mean Corpuscular Volume [Pending], Mean Corpuscular Hemoglobin [Pending], Mean Corpuscular Hemoglobin Concent [Pending], Red Cell Distribution Width [Pending], Platelet Count [Pending], Mean Platelet Volume [Pending], Neutrophils (%) (Auto) [Pending], Lymphocytes (%) (Auto) [Pending], Monocytes (%) (Auto) [Pending], Eosinophils (%) (Auto) [Pending], Basophils (%) (Auto) [Pending], Sodium Level [Pending], Potassium Level [Pending], Chloride Level [Pending], Carbon Dioxide Level [Pending], Blood Urea Nitrogen [Pending], Creatinine [Pending], Estimat Glomerular Filtration Rate [Pending], Glucose Level [Pending], Calcium Level [Pending], Ferritin [Pending], Total Bilirubin [Pending], Direct Bilirubin [Pending], Aspartate Amino Transf (AST/SGOT) [Pending], Alanine Aminotransferase (ALT/SGPT) [Pending], Alkaline Phosphatase [Pending], C-Reactive Protein, Quantitative [Pending], Total Protein [Pending], Albumin [Pending], Globulin [Pending] Height (Feet): 5 Height (Inches): 6.00 Weight (Pounds): 160 General Appearance: no apparent distress Cardiovascular: tachycardia, other - Variable rate Respiratory/Chest: decreased breath sounds Abdomen: distended Objective No change Steven Edwards MD Apr 17, 2020 09:26
[2020-04-17 09:41] LABS: BASOPHILS % (AUTO) 0.6 % (0.0-2.0); EOSINOPHILS % (AUTO) 0.2 % (0.0-3.0); HEMATOCRIT 29.1 % (37.0-47.0); HEMOGLOBIN 9.9 G/DL (12.0-16.0); LYMPHOCYTES % (AUTO) 8.7 % (20.0-45.0); MEAN CORPUSCULAR VOLUME 86 FL (80-99); NEUTROPHILS % (AUTO) 84.6 % (45.0-75.0); PLATELET COUNT 419 K/UL (150-450); RED BLOOD COUNT 3.36 M/UL (4.20-5.40); RED CELL DISTRIBUTION WIDTH 13.5 % (11.6-14.8); WHITE BLOOD COUNT 14.5 K/UL (4.8-10.8)
[2020-04-17] MEDS: Ascorbic Acid 500mg tab ORAL SCH ×2 (09:53→17:50)
[2020-04-17] MEDS: Enoxaparin 40mg Inj SUBQ SCH (09:54)
[2020-04-17] MEDS: Zinc Sulfate 220mg ORAL SCH (09:54)
[2020-04-17] MEDS: Pantoprazole Inj IVP SCH ×2 (09:54→20:33)
[2020-04-17 10:03] LABS: ALANINE AMINOTRANSFERASE 25 U/L (12-78); ALBUMIN 2.3 G/DL (3.4-5.0); ALBUMIN/GLOBULIN RATIO 0.8 (1.0-2.7); ALKALINE PHOSPHATASE 93 U/L (46-116); ANION GAP 4 mmol/L (5-15); ASPARTATE AMINO TRANSFERASE 22 U/L (15-37); BILIRUBIN,DIRECT 0.1 MG/DL (0.0-0.3); BILIRUBIN,TOTAL 0.3 MG/DL (0.2-1.0); BLOOD UREA NITROGEN 8 mg/dL (7-18); CALCIUM 8.5 MG/DL (8.5-10.1); CARBON DIOXIDE 28 MMOL/L (21-32); CHLORIDE 103 MMOL/L (98-107); CREATININE 0.5 MG/DL (0.55-1.30); FERRITIN 479 NG/ML (8-388); POTASSIUM 3.8 MMOL/L (3.5-5.1); SODIUM 135 MMOL/L (136-145)
--- NOTE | 2020-04-17 10:07 | NUR ---
RD ASSESSMENT & RECOMMENDATIONS SEE CARE ACTIVITY FOR COMPLETE ASSESSMENT DAILY ESTIMATED NEEDS: Needs based on Obesity, cardiac/ 67.6kg abw 22-27 kcals/kg 8232-2621 total kcals 1.25-1.5 g protein/kg 85-101 g total protein 25-30 mL/kg 5378-5627 total fluid mLs NUTRITION DIAGNOSIS: * Swallowing difficulty R/T dysphagia, h/o CVA, now on NGT feeds. 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 CURRENT TF:Glucerna 1.2 @55 ENTERAL NUTRITION RECOMMENDATIONS: Glucerna 1.2 goal of 60ml/hr x24 hrs to provide 1440ml, 1728 kcal, 86g pro, 1159 ml free H2O Rec to Increase current TF to goal of 60ml/hr to meet 100% est needs Flush per MD/ HOB over 30 degrees ADDITIONAL RECOMMENDATIONS: * Per SNF: HT=64" VU=994fav (04/05/20) -> rec daily calibrated bedscale wt, monitor trend Possible wt loss of 68 lbs/29% in 13 months * W/ poor PO intake, add Glucerna TID-now on NGT feeds * Wound healing: Add MVI x 1, Vit C 500mg BID, ZnSO4 220mg QD x 10 days Woody (QD for now- increase to BID w/ good acceptance) added to tray * Monitor lytes, replete as needed
--- NOTE | 2020-04-17 11:28 | Pulmonology Progress Note ---
Subjective ROS Limited/Unobtainable: No Constitutional: Reports: fatigue Allergies: Coded Allergies: No Known Allergies (Unverified , 03/11/19) Subjective no fevers, + leuk on 4 L O2 via NC, no signs of resp distress Objective Last 24 Hour Vital Signs Date Time Temp Pulse Resp B/P (MAP) Pulse Ox O2 Delivery O2 Flow Rate FiO2 04/17/20 08:00 97 04/17/20 08:00 97.7 82 16 161/86 (111) 94 04/17/20 04:00 97.9 71 16 124/70 (88) 97 04/17/20 04:00 93 04/17/20 00:00 98.1 69 16 129/79 (96) 97 04/16/20 21:00 Nasal Cannula 4.0 04/16/20 20:00 97.7 77 18 150/75 (100) 97 04/16/20 16:00 97.3 100 18 120/68 (85) 100 82 04/16/20 16:00 106 04/16/20 12:00 103 04/16/20 12:00 99.5 123 18 135/66 (89) 99 Intake and Output 04/16/20 04/17/20 19:00 07:00 Intake Total 305 ml Output Total 450 ml 900 ml Balance -450 ml -595 ml Free Water 250 ml Tube Feeding 55 ml Output Urine Total 450 ml 900 ml # Bowel Movements 2 General Appearance: WD/WN HEENT: normocephalic, atraumatic Respiratory: chest wall non-tender, lungs clear Breasts: no masses Cardiovascular: normal peripheral pulses Abdomen: normal bowel sounds, soft, non tender Extremities: no cyanosis Neurologic: information security director II-XII 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, alert Laboratory Tests 04/17/20 06:48: POC Whole Blood Glucose 105 04/17/20 09:10: White Blood Count 14.5H, Red Blood Count 3.36L, Hemoglobin 9.9L, Hematocrit 29.1L, Mean Corpuscular Volume 86, Mean Corpuscular Hemoglobin 29.4, Mean Corpuscular Hemoglobin Concent 34.0, Red Cell Distribution Width 13.5, Platelet Count 419, Mean Platelet Volume 5.2L, Neutrophils (%) (Auto) 84.6H, Lymphocytes (%) (Auto) 8.7L, Monocytes (%) (Auto) 6.0, Eosinophils (%) (Auto) 0.2, Basophils (%) (Auto) 0.6, Sodium Level 135L, Potassium Level 3.8, Chloride Level 103, Carbon Dioxide Level 28, Anion Gap 4L, Blood Urea Nitrogen 8, Creatinine 0.5L, Estimat Glomerular Filtration Rate > 60, Glucose Level 112H, Calcium Level 8.5, Ferritin 479H, Total Bilirubin 0.3, Direct Bilirubin 0.1, Aspartate Amino Transf (AST/SGOT) 22, Alanine Aminotransferase (ALT/SGPT) 25, Alkaline Phosphatase 93, C-Reactive Protein, Quantitative 2.2H, Total Protein 5.2L, Albumin 2.3L, Globulin 2.9, Albumin/Globulin Ratio 0.8L Current Medications Medications (Trade) Dose Ordered Sig/Jere Route PRN Reason Start Time Stop Time Status Last Admin Dose Admin Acetaminophen (Tylenol) 650 mg Q4H PRN ORAL fever 04/08/20 19:00 05/08/20 18:59 04/12/20 00:27 Ascorbic Acid (Vitamin C) 500 mg TWICE A DAY ORAL 04/14/20 18:00 05/14/20 17:59 04/17/20 09:53 Chlorhexidine Gluconate (Geno-Hex 2%) 1 applic DAILY@2000 TOPIC 04/08/20 20:00 07/07/20 19:59 04/15/20 20:28 Dexamethasone (Decadron) 6 mg DAILY ORAL 04/12/20 15:15 04/21/20 09:01 04/17/20 09:54 Dextrose (Dextrose 50%) 25 ml Q30M PRN IV Hypoglycemia 04/09/20 07:45 07/08/20 07:44 04/11/20 16:12 Dextrose (Dextrose 50%) 50 ml Q30M PRN IV Hypoglycemia 04/09/20 07:45 07/08/20 07:44 Dextrose/ Electrolytes 1,000 ml @ 30 mls/hr Q24H IV 04/08/20 22:30 05/08/20 22:29 04/16/20 05:31 Enoxaparin Sodium (Lovenox) 40 mg DAILY SUBQ 04/14/20 20:00 07/13/20 19:59 04/17/20 09:54 Insulin Aspart (NovoLOG) BEFORE MEALS AND HS SUBQ 04/09/20 11:30 07/08/20 11:29 04/10/20 12:08 Linezolid (Zyvox) 600 mg EVERY 12 HOURS ORAL 04/12/20 15:00 04/20/20 14:59 04/17/20 09:54 Metoprolol Tartrate (Lopressor) 5 mg Q1H PRN IVP spb more than 120 04/08/20 19:00 07/07/20 18:59 Multivitamins (Multivitamins) 1 tab DAILY ORAL 04/15/20 09:00 05/15/20 08:59 04/17/20 09:54 Ondansetron HCl (Zofran) 4 mg Q6H PRN IVP Nausea & Vomiting 04/08/20 19:00 05/08/20 18:59 Pantoprazole (Protonix) 40 mg EVERY 12 HOURS IVP 04/10/20 21:00 05/10/20 20:59 04/17/20 09:54 Polyethylene Glycol (Miralax) 17 gm BEDTIME ORAL 04/09/20 21:00 05/09/20 20:59 04/15/20 20:29 Polyethylene Glycol (Miralax) 17 gm DAILYPRN PRN ORAL Constipation 04/08/20 19:00 05/08/20 18:59 Remdesivir 100 mg/ Sodium Chloride 250 ml @ 250 mls/hr Q24H IV 04/14/20 22:00 04/17/20 22:59 04/16/20 22:00 Zinc Sulfate (Zinc Sulfate) 220 mg DAILY ORAL 04/15/20 09:00 04/25/20 08:59 04/17/20 09:54 Assessment/Plan Assessment/Plan ASSESSMENT Septic and hemorrhagic shock Acute hypoxemic respiratory failure COVID-19 pneumonia UTI with VRE Vaginal bleeding Rectal bleeding/black stools Anemia Endometrial CA Dysphagia Aspiration risk DM History of CVA Electrolyte abnormalities Sinus tachycardia PLAN OF CARE tele isolation on Remdesivir and steroid abx as per ID O2 titrate to keep sat above 92% pulm toilet fup with CXR trend inflammatory markers, CRP down to 2.2 aspiration precaution, nutritional support with NG tube PEG planned for Saturday DVT and GI prophylaxis monitor H&H with goal to keep Hgb> 7 correct electrolytes as needed BS management with SSI Echo with pEF 55% seen and evaluated by neuro EEG pending case discussed and evaluated by supervising physician Marta Hernández NP Apr 17, 2020 11:28
[2020-04-17 12:00] VITALS: BP 129/75
--- NOTE | 2020-04-17 13:03 | Internal Med Progress Note ---
Subjective Date of Service: Apr 17, 2020 Physician Name MurphyTariq Attending Physician Dewayne Mendoza MD Current Medications Medications (Trade) Dose Ordered Sig/Jere Route PRN Reason Start Time Stop Time Status Last Admin Dose Admin Acetaminophen (Tylenol) 650 mg Q4H PRN ORAL fever 04/08/20 19:00 05/08/20 18:59 04/12/20 00:27 Ascorbic Acid (Vitamin C) 500 mg TWICE A DAY ORAL 04/14/20 18:00 05/14/20 17:59 04/17/20 09:53 Chlorhexidine Gluconate (Geno-Hex 2%) 1 applic DAILY@2000 TOPIC 04/08/20 20:00 07/07/20 19:59 04/15/20 20:28 Dexamethasone (Decadron) 6 mg DAILY ORAL 04/12/20 15:15 04/21/20 09:01 04/17/20 09:54 Dextrose (Dextrose 50%) 25 ml Q30M PRN IV Hypoglycemia 04/17/20 12:00 07/16/20 11:59 Dextrose (Dextrose 50%) 50 ml Q30M PRN IV Hypoglycemia 04/17/20 12:00 07/16/20 11:59 Dextrose/ Electrolytes 1,000 ml @ 30 mls/hr Q24H IV 04/08/20 22:30 05/08/20 22:29 04/16/20 05:31 Enoxaparin Sodium (Lovenox) 40 mg DAILY SUBQ 04/14/20 20:00 07/13/20 19:59 04/17/20 09:54 Insulin Aspart (NovoLOG) Q6H SUBQ 04/17/20 12:00 07/16/20 11:59 Linezolid (Zyvox) 600 mg EVERY 12 HOURS ORAL 04/12/20 15:00 04/20/20 14:59 04/17/20 09:54 Metoprolol Tartrate (Lopressor) 5 mg Q1H PRN IVP spb more than 120 04/08/20 19:00 07/07/20 18:59 Multivitamins (Multivitamins) 1 tab DAILY ORAL 04/15/20 09:00 05/15/20 08:59 04/17/20 09:54 Ondansetron HCl (Zofran) 4 mg Q6H PRN IVP Nausea & Vomiting 04/08/20 19:00 05/08/20 18:59 Pantoprazole (Protonix) 40 mg EVERY 12 HOURS IVP 04/10/20 21:00 05/10/20 20:59 04/17/20 09:54 Polyethylene Glycol (Miralax) 17 gm BEDTIME ORAL 04/09/20 21:00 05/09/20 20:59 04/15/20 20:29 Polyethylene Glycol (Miralax) 17 gm DAILYPRN PRN ORAL Constipation 04/08/20 19:00 05/08/20 18:59 Remdesivir 100 mg/ Sodium Chloride 250 ml @ 250 mls/hr Q24H IV 04/14/20 22:00 04/17/20 22:59 04/16/20 22:00 Zinc Sulfate (Zinc Sulfate) 220 mg DAILY ORAL 04/15/20 09:00 04/25/20 08:59 04/17/20 09:54 Allergies: Coded Allergies: No Known Allergies (Unverified , 03/11/19) ROS Limited/Unobtainable: Yes Subjective 64 YO F with inoperable uterine cancer admitted with tachycardia. Now atrial fibrillation with rapid ventricular rate. Also COVID 19 positive. Cover for Int Med-DR Mendoza Objective Last Vital Signs Date Time Temp Pulse Resp B/P (MAP) Pulse Ox O2 Delivery O2 Flow Rate FiO2 04/17/20 12:00 97.9 114 18 129/75 (93) 97 04/17/20 09:00 Nasal Cannula 4.0 04/14/20 19:42 28 Laboratory Tests Test 04/17/20 06:48 04/17/20 09:10 04/17/20 11:58 POC Whole Blood Glucose 105 MG/DL (74-106) Pending White Blood Count 14.5 K/UL (4.8-10.8) H Red Blood Count 3.36 M/UL (4.20-5.40) L Hemoglobin 9.9 G/DL (12.0-16.0) L Hematocrit 29.1 % (37.0-47.0) L Mean Corpuscular Volume 86 FL (80-99) Mean Corpuscular Hemoglobin 29.4 PG (27.0-31.0) Mean Corpuscular Hemoglobin Concent 34.0 G/DL (32.0-36.0) Red Cell Distribution Width 13.5 % (11.6-14.8) Platelet Count 419 K/UL (150-450) Mean Platelet Volume 5.2 FL (6.5-10.1) L Neutrophils (%) (Auto) 84.6 % (45.0-75.0) H Lymphocytes (%) (Auto) 8.7 % (20.0-45.0) L Monocytes (%) (Auto) 6.0 % (1.0-10.0) Eosinophils (%) (Auto) 0.2 % (0.0-3.0) Basophils (%) (Auto) 0.6 % (0.0-2.0) Sodium Level 135 MMOL/L (136-145) L Potassium Level 3.8 MMOL/L (3.5-5.1) Chloride Level 103 MMOL/L (98-107) Carbon Dioxide Level 28 MMOL/L (21-32) Anion Gap 4 mmol/L (5-15) L Blood Urea Nitrogen 8 mg/dL (7-18) Creatinine 0.5 MG/DL (0.55-1.30) L Estimat Glomerular Filtration Rate > 60 mL/min (>60) Glucose Level 112 MG/DL (74-106) H Calcium Level 8.5 MG/DL (8.5-10.1) Ferritin 479 NG/ML (8-388) H Total Bilirubin 0.3 MG/DL (0.2-1.0) Direct Bilirubin 0.1 MG/DL (0.0-0.3) Aspartate Amino Transf (AST/SGOT) 22 U/L (15-37) Alanine Aminotransferase (ALT/SGPT) 25 U/L (12-78) Alkaline Phosphatase 93 U/L (46-116) C-Reactive Protein, Quantitative 2.2 mg/dL (0.00-0.90) H Total Protein 5.2 G/DL (6.4-8.2) L Albumin 2.3 G/DL (3.4-5.0) L Globulin 2.9 g/dL Albumin/Globulin Ratio 0.8 (1.0-2.7) L Intake and Output 04/16/20 04/17/20 19:00 07:00 Intake Total 305 ml Output Total 450 ml 900 ml Balance -450 ml -595 ml Free Water 250 ml Tube Feeding 55 ml Output Urine Total 450 ml 900 ml # Bowel Movements 2 Objective PHYSICAL EXAMINATION: GENERAL: The patient awake, responsive, however altered and confused. The patient appears to be paler and chronically-ill appearing. HEAD AND NECK: Pupils are equal and reactive to light. Extraocular movements are intact. Neck was supple. No JVD. LUNGS: Bilateral air entry. Decreased air in the bases. HEART: S1, S2. Tachycardic, irregular. No murmur or gallop was appreciated. ABDOMEN: Soft, nondistended. Tenderness on the lower abdominal area. Mildly obese. EXTREMITIES: No cyanosis, clubbing, or edema. GENITOURINARY: The patient noted to have Lowe catheter with dark red urine collection in a Lowe catheter. NEUROLOGIC: Cranial nerves II through XII grossly intact. The patient moving all extremities equally. Sensory is intact. Gait was not able to assess due to the patient's status. RECTAL: Refused and deferred. PSYCHIATRIC: Mood and affect, unable to obtain due to the patient's status. Assessment/Plan Assessment/Plan ASSESSMENT: 1. COVID-19 pneumonia. 2. Altered mental status, most likely secondary to toxic metabolic encephalopathy. 3. Atrial fibrillation with rapid ventricular rate. 4. Anemia most likely secondary to acute blood loss. 5. Sepsis secondary to urinary tract infection as well as pneumonia. 6. Vaginal bleeding. 7. UTI=VRE 8. History of diabetes type 2. 9. Inoperable endometrial adenocarcinoma, status post brachytherapy. 10. Hypertension. 11. History of lacunar infarction. PLAN: 1. Admit the patient to ICU. 2. Dr. Buitrago=Pulmonary/Critical Care 3. Dr. Wale Wu = Cardiology. 4. antibiotic=vancomycin linezolid and cefepime. 5. [facility] 6. Code status =Full Code. 7. DVT prophylaxis SCD. 8. S/P transfusion 2 units of packed RBC. 9. Continue Levophed as needed to support the blood pressure 10. ID=Tariq Márquez MD Apr 17, 2020 13:03
--- NOTE | 2020-04-17 15:43 | NUR ---
NURSE NOTES: Left a message on voicemail of Dr. Dewayne Mendoza notifying that patient has hematuria.
[2020-04-17 16:00] VITALS: BP 115/62
--- NOTE | 2020-04-17 17:05 | NUR ---
NURSE NOTES: Notified Dr. Dewayne Mendoza patient has hematuria; received order to hold Lovenox for [address] Bong Valerio.
--- NOTE | 2020-04-17 17:20 | General Progress Note ---
Subjective Allergies: Coded Allergies: No Known Allergies (Unverified , 03/11/19) Subjective Above noted d/w bar staff tolerating TF Objective Last 24 Hour Vital Signs Date Time Temp Pulse Resp B/P (MAP) Pulse Ox O2 Delivery O2 Flow Rate FiO2 04/17/20 16:00 111 04/17/20 16:00 97.9 116 20 115/62 (79) 95 04/17/20 12:00 97.9 114 18 129/75 (93) 97 04/17/20 12:00 109 04/17/20 09:00 Nasal Cannula 4.0 04/17/20 08:00 97 04/17/20 08:00 97.7 82 16 161/86 (111) 94 04/17/20 04:00 97.9 71 16 124/70 (88) 97 04/17/20 04:00 93 04/17/20 00:00 98.1 69 16 129/79 (96) 97 04/16/20 21:00 Nasal Cannula 4.0 04/16/20 20:00 97.7 77 18 150/75 (100) 97 Intake and Output 04/16/20 04/17/20 19:00 07:00 Intake Total 390 ml Output Total 450 ml 900 ml Balance -450 ml -510 ml Free Water 250 ml IV Total 30 ml Tube Feeding 110 ml Output Urine Total 450 ml 900 ml # Bowel Movements 2 Laboratory Tests 04/17/20 06:48: POC Whole Blood Glucose 105 04/17/20 09:10: White Blood Count 14.5H, Red Blood Count 3.36L, Hemoglobin 9.9L, Hematocrit 29.1L, Mean Corpuscular Volume 86, Mean Corpuscular Hemoglobin 29.4, Mean Corpuscular Hemoglobin Concent 34.0, Red Cell Distribution Width 13.5, Platelet Count 419, Mean Platelet Volume 5.2L, Neutrophils (%) (Auto) 84.6H, Lymphocytes (%) (Auto) 8.7L, Monocytes (%) (Auto) 6.0, Eosinophils (%) (Auto) 0.2, Basophils (%) (Auto) 0.6, Sodium Level 135L, Potassium Level 3.8, Chloride Level 103, Carbon Dioxide Level 28, Anion Gap 4L, Blood Urea Nitrogen 8, Creatinine 0.5L, Estimat Glomerular Filtration Rate > 60, Glucose Level 112H, Calcium Level 8.5, Ferritin 479H, Total Bilirubin 0.3, Direct Bilirubin 0.1, Aspartate Amino Transf (AST/SGOT) 22, Alanine Aminotransferase (ALT/SGPT) 25, Alkaline Phosphatase 93, C-Reactive Protein, Quantitative 2.2H, Total Protein 5.2L, Albumin 2.3L, Globulin 2.9, Albumin/Globulin Ratio 0.8L 04/17/20 11:58: POC Whole Blood Glucose [Pending] Height (Feet): 5 Height (Inches): 6.00 Weight (Pounds): 160 Objective Debilitated elderly woman NCAT, (+) NGT supple CTA RR abd soft NT ND no edema OBS Assessment/Plan Status: stable, unchanged Assessment/Plan: Assessment/Plan Assessment/Plan: 1. History of hypertension. 2. Diabetes. 3. CVA. 4. UTI. 5. Colitis. 6. Endometrial cancer. hgb 10 no recurrent gib passed swallow eval on oral diet still poor po intake d/w her sister>>> plan peg on saturday NGTF for now Magdi Pacheco MD Apr 17, 2020 17:20
--- NOTE | 2020-04-17 18:49 | NUR ---
NURSE HAND-OFF REPORT: Important Events on Shift:Patient has hematuria, has inoperable bladder cancer, order from Dr. Dewayne Mendoza to hold Lovenox x 24 hours. Hand irrigate Lowe Catheter, prn blood/clots. Patient in restraints due to pulling nasogastric tube. Hands very cold. Patient Status: Stable Diet: NG-tube, Glucerna 1.2@55cc/hour. Tolerating well. Pending Orders: CXR in a.m., EEG Pending Results/Labs:Labs in a.m. CBC, CMP, CRP, Phosphorous, Uric Acid. Pending MD notification:N/A Latest Vital Signs: Temperature 97.9 , Pulse 111 , B/P 115 /62 , Respiratory Rate 20 , O2 SAT 95 , Nasal Cannula, O2 Flow Rate 4.0 . Vital Sign Comment: N/A EKG Rhythm: Sinus Tachycardia Rhythm change?: N MD Notified?: N - MD Response: Latest Ortega Fall Score: 55 Fall Risk: High Risk Safety Measures: Call light Within Reach, Bed Alarm Zone 1, Side Rails Side Rails x3, Bed position Low and Locked. Fall Precautions: Yellow Socks Yellow Gown Door Sign Patient Fall Education Report given to Oncoming Staff. Addendum: 04/17/20 at 1929 by CAMILLE REICH RN Report given to Joellen Osorio RN.
--- NOTE | 2020-04-17 19:20 | NUR ---
NURSE NOTES: Received report from VARUN Younger. Patient is awake on bed, alert and oriented x 1. On oxygen via nasal cannula @ 4Lpm, sating 98 %. Cardica monitor is in place, shows sinus rhythm. IV site is on left AC G-18 running fluid of d5 1/2 NS + 20 meqs KCL @ 30 cc/hour that is patent and intact. NGT on right nares, on Glucerna 1.2 @ 55 cc/hour. Safety measures are in place, bed in lowest and locked position, side rails up x 2. Will continue plan of care.
[2020-04-17 20:00] VITALS: BP 90/53
[2020-04-17] MEDS: Dyna-Hex 2% Top Sol 2oz TOPIC SCH (20:33)
[2020-04-17] MEDS: Miralax 17gm pkt ORAL SCH (20:33)
[2020-04-17] MEDS: Maintenance Dose:Remdesivir 100mg/NS 230ml x 4 Doses IV SCH ×2 (21:59)
[2020-04-18] VITALS: BP 123/72
--- NOTE | 2020-04-18 00:45 | Consultation ---
DATE OF CONSULTATION: 04/17/2020 CONSULTING PHYSICIAN: Bong Valerio MD. REFERRING PHYSICIAN: Dewayne Mendoza MD. REASON FOR EVALUATION: Evaluation of gross hematuria. HISTORY OF PRESENT ILLNESS: This is a 64-year-old female. She was admitted to the hospital because of irregular heartbeat, hypertension, tachycardia, vaginal bleeding. She had some altered mental status. She currently has a Lowe catheter in place. Gross hematuria was noted. Urology evaluation is requested. Of note, the patient has a history of UTI. Most of the history was obtained from the chart review. 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 PAST MEDICAL HISTORY: Significant for above also hypertension, CVA, diabetes, chronic lacunar infarct. Patient was also noted to be COVID positive during this admission. PAST SURGICAL HISTORY: She has had interstitial implant for the endometrial cancer. CURRENT MEDICATIONS: Here in the hospital, patient is on insulin, zinc, multivitamins, remdesivir, Lovenox, vitamin C, Decadron, Zyvox, Protonix, MiraLAX, Zofran. ALLERGIES: No known drug allergies. SOCIAL HISTORY: She is a resident of a penitentiary. REVIEW OF SYSTEMS: As above. FAMILY HISTORY: Noncontributory. PHYSICAL EXAMINATION: VITAL SIGNS: Temperature is 97.9, blood pressure 115/62, pulse is 116, respirations 20. GENITOURINARY: Lowe catheter is in place. Urine is blood tinged. LABORATORY DATA: White count 14.5, hemoglobin 9.9, and platelets are 419. Her BUN is 8, creatinine 0.5. She did have a creatinine of 1.7 at the time of admission. Her last urinalysis showed 2+ protein, too numerous to count rbc's, 10 to 15 wbc's. Her last urine culture showed enterococcus. She had a previous urine culture that showed Proteus. She also had blood cultures, which were positive for Staph. The latest blood cultures negative after 4 days after 04/12/2020. DIAGNOSTIC IMAGING STUDIES: The patient had a CT scan of the abdomen and pelvis and this did not show any hydronephrosis or renal tumors or stones. There was a 1.2 cm left adrenal nodularity. There was also thickened bladder. IMPRESSION: 1. Gross hematuria. 2. UTI. 3. Proteinuria. 4. Urinary retention. 5. Probable neurogenic bladder. 6. Probable cystitis. 7. Possible adrenal adenoma. 8. Acute kidney injury history, which is improved. 9. Sepsis history. PLAN AND DISCUSSION: Again, the patient is having gross hematuria presumably secondary to combination of UTI and irritation from the Lowe and the fact that she is on anticoagulation. She also has had brachytherapy for uterine cancer. She may have some radiation effect on the bladder. At this time, her Lowe catheter, which is 16-Maldivian, will be irrigated on a p.r.n. basis and Lovenox was ordered to be held, which I agree with. She will be monitored clinically with hand irrigation as needed and if she continues to have more bleeding, she may require continuous bladder irrigation as needed. She is to continue with antibiotics as ordered and she is currently on Zyvox and hopefully we can resume the Lovenox once bleeding has improved. The above was discussed extensively with the nursing staff. Thank you for this consultation. Bong Valerio M.D. DR: FRANCIS JOB#: [id number] CC:
[2020-04-18 04:00] VITALS: BP 133/84
[2020-04-18] MEDS: NovoLOG Insulin Flexpen SUBQ SCH ×4 (06:00→18:00)
[2020-04-18] MEDS: Enoxaparin 40mg Inj SUBQ SCH (07:22)
--- NOTE | 2020-04-18 07:41 | NUR ---
NURSE NOTES: Pt received from Devon Osorio RN. Pt in bed sleeping, HOB at 30 degrees. No sign of pain or distress at this time. Bed low and locked with call light within reach. Will D/C NPO and continue glucerna 1.2 at 55cc/hr since PEG/EGD will not be done today. Held lovenox per Dr. Valerio's order.
--- NOTE | 2020-04-18 07:41 | NUR ---
NURSE HAND-OFF REPORT: Important Events on Shift: Patient has been resting the whole night Patient Status: Patient is asleep on bed in stable condition with no complaints made. Diet: On glucerna 1.5 @ 55 cc/hour Pending Orders: EGD with possible biopsy, PEG with possible feed tube Pending Results/Labs: cbc, cmp result Pending MD notification:none Latest Vital Signs: Temperature 98.1 , Pulse 102 , B/P 133 /84 , Respiratory Rate 16 , O2 SAT 100 , Nasal Cannula, O2 Flow Rate 4.0 . Vital Sign Comment: stable EKG Rhythm: Sinus Rhythm Rhythm change?: N MD Notified?: N - MD Response: Latest Ortega Fall Score: 55 Fall Risk: High Risk Safety Measures: Call light Within Reach, Bed Alarm Zone 1, Side Rails Side Rails x2, Bed position Low and Locked. Fall Precautions: Yellow Socks Yellow Gown Door Sign Patient Fall Education Report given to VARUN Booker.
[2020-04-18 08:00] VITALS: BP 140/80
[2020-04-18] MEDS: Ascorbic Acid 500mg tab ORAL SCH ×2 (08:19→18:22)
[2020-04-18] MEDS: Zinc Sulfate 220mg ORAL SCH (08:19)
[2020-04-18] MEDS: Pantoprazole Inj IVP SCH ×2 (08:19→21:27)
[2020-04-18 08:21] LABS: BASOPHILS % (AUTO) 1.2 % (0.0-2.0); HEMATOCRIT 27.4 % (37.0-47.0); HEMOGLOBIN 9.2 G/DL (12.0-16.0); LYMPHOCYTES % (AUTO) 8.2 % (20.0-45.0); MEAN CORPUSCULAR VOLUME 87 FL (80-99); MONOCYTES % (AUTO) 6.1 % (1.0-10.0); NEUTROPHILS % (AUTO) 84.5 % (45.0-75.0); PLATELET COUNT 349 K/UL (150-450); RED BLOOD COUNT 3.16 M/UL (4.20-5.40); WHITE BLOOD COUNT 14.5 K/UL (4.8-10.8)
[2020-04-18 08:34] LABS: ANION GAP 4 mmol/L (5-15); BLOOD UREA NITROGEN 13 mg/dL (7-18); CALCIUM 8.6 MG/DL (8.5-10.1); CARBON DIOXIDE 29 MMOL/L (21-32); CHLORIDE 104 MMOL/L (98-107); CREATININE 0.5 MG/DL (0.55-1.30); POTASSIUM 4.4 MMOL/L (3.5-5.1); SODIUM 137 MMOL/L (136-145)
--- NOTE | 2020-04-18 08:51 | NUR ---
NURSE NOTES: 150ml residuals noted despite pt being NPO since last night. Notified Dr. Park to confirm if NPO should be continued given large amount of residual. Meds still given with small amount of water Addendum: 04/18/20 at 0853 by Ade Haddad RN Placement of NG tube confirmed via auscultation, distinct gurgling noted in abdomen.
--- NOTE | 2020-04-18 09:51 | Urology Progress Note ---
Assessment/Plan Status: stable, unchanged Assessment/Plan: 1. Gross hematuria. 2. UTI. 3. Proteinuria. 4. Urinary retention. 5. Probable neurogenic bladder. 6. Probable cystitis. 7. Possible adrenal adenoma. 8. Acute kidney injury history, which is improved. 9. Sepsis history. monitor clinically mcmanus hand irrigated and do PRN abx as ordered lovenox held for now monitor h/h cysto at some point electively Subjective Allergies: Coded Allergies: No Known Allergies (Unverified , 03/11/19) Subjective all noted nursing staff hand irrigated mcmanus Objective Last 24 Hour Vital Signs Date Time Temp Pulse Resp B/P (MAP) Pulse Ox O2 Delivery O2 Flow Rate FiO2 04/18/20 08:00 98.0 91 18 140/80 (100) 95 04/18/20 08:00 79 04/18/20 04:00 92 04/18/20 04:00 98.1 102 16 133/84 (100) 100 04/18/20 00:00 97.9 105 16 123/72 (89) 91 04/18/20 00:00 117 04/17/20 21:00 Nasal Cannula 4.0 04/17/20 20:00 111 04/17/20 20:00 97.5 109 16 90/53 (65) 95 04/17/20 16:00 111 04/17/20 16:00 97.9 116 20 115/62 (79) 95 04/17/20 12:00 97.9 114 18 129/75 (93) 97 04/17/20 12:00 109 Intake and Output 04/17/20 04/18/20 19:00 07:00 Intake Total 795 ml Output Total 300 ml 850 ml Balance 495 ml -850 ml Free Water 180 ml IV Total 120 ml Tube Feeding 495 ml Output Urine Total 300 ml Other 850 ml # Bowel Movements 1 Microbiology Date/Time Source Procedure Growth Status 04/12/20 19:30 Blood Blood Culture - Final NO GROWTH AFTER 5 DAYS Complete 04/09/20 08:00 Urine,Clean Catch Urine Culture - Final Enterococcus Faecium - Vre Complete 04/08/20 15:55 Rectum VRE Culture - Final Enterococcus Faecium - Vre Complete 04/08/20 15:55 Nasal Nares MRSA Culture - Final Staphylococcus Aureus - Mrsa Complete Current Medications Medications (Trade) Dose Ordered Sig/Jere Route PRN Reason Start Time Stop Time Status Last Admin Dose Admin Acetaminophen (Tylenol) 650 mg Q4H PRN ORAL fever 04/08/20 19:00 05/08/20 18:59 04/12/20 00:27 Ascorbic Acid (Vitamin C) 500 mg TWICE A DAY ORAL 04/14/20 18:00 05/14/20 17:59 04/18/20 08:19 Chlorhexidine Gluconate (Geno-Hex 2%) 1 applic DAILY@2000 TOPIC 04/08/20 20:00 07/07/20 19:59 04/17/20 20:33 Dexamethasone (Decadron) 6 mg DAILY ORAL 04/12/20 15:15 04/21/20 09:01 04/18/20 08:19 Dextrose (Dextrose 50%) 25 ml Q30M PRN IV Hypoglycemia 04/17/20 12:00 07/16/20 11:59 Dextrose (Dextrose 50%) 50 ml Q30M PRN IV Hypoglycemia 04/17/20 12:00 07/16/20 11:59 Dextrose/ Electrolytes 1,000 ml @ 30 mls/hr Q24H IV 04/08/20 22:30 05/08/20 22:29 04/17/20 17:52 Enoxaparin Sodium (Lovenox) 40 mg DAILY SUBQ 04/14/20 20:00 07/13/20 19:59 04/17/20 09:54 Insulin Aspart (NovoLOG) Q6H SUBQ 04/17/20 12:00 07/16/20 11:59 Linezolid (Zyvox) 600 mg EVERY 12 HOURS ORAL 04/12/20 15:00 04/20/20 14:59 04/18/20 08:20 Metoprolol Tartrate (Lopressor) 5 mg Q1H PRN IVP spb more than 120 04/08/20 19:00 07/07/20 18:59 Multivitamins (Multivitamins) 1 tab DAILY ORAL 04/15/20 09:00 05/15/20 08:59 04/18/20 08:19 Ondansetron HCl (Zofran) 4 mg Q6H PRN IVP Nausea & Vomiting 04/08/20 19:00 05/08/20 18:59 Pantoprazole (Protonix) 40 mg EVERY 12 HOURS IVP 04/10/20 21:00 05/10/20 20:59 04/18/20 08:19 Polyethylene Glycol (Miralax) 17 gm BEDTIME ORAL 04/09/20 21:00 05/09/20 20:59 04/17/20 20:33 Polyethylene Glycol (Miralax) 17 gm DAILYPRN PRN ORAL Constipation 04/08/20 19:00 05/08/20 18:59 Zinc Sulfate (Zinc Sulfate) 220 mg DAILY ORAL 04/15/20 09:00 04/25/20 08:59 04/18/20 08:19 Laboratory Tests 04/17/20 11:58: POC Whole Blood Glucose [Pending] 04/17/20 17:44: POC Whole Blood Glucose 133H 04/17/20 23:31: POC Whole Blood Glucose 120H 04/18/20 06:04: POC Whole Blood Glucose [Pending] 04/18/20 07:25: White Blood Count 14.5H, Red Blood Count 3.16L, Hemoglobin 9.2L, Hematocrit 27.4L, Mean Corpuscular Volume 87, Mean Corpuscular Hemoglobin 29.2, Mean Corpuscular Hemoglobin Concent 33.6, Red Cell Distribution Width 14.0, Platelet Count 349, Mean Platelet Volume 5.2L, Neutrophils (%) (Auto) 84.5H, Lymphocytes (%) (Auto) 8.2L, Monocytes (%) (Auto) 6.1, Eosinophils (%) (Auto) 0.0, Basophils (%) (Auto) 1.2, Sodium Level 137, Potassium Level 4.4, Chloride Level 104, Carbon Dioxide Level 29, Anion Gap 4L, Blood Urea Nitrogen 13, Creatinine 0.5L, Estimat Glomerular Filtration Rate > 60, Glucose Level 107H, Calcium Level 8.6, Phosphorus Level [Pending], Magnesium Level [Pending], Total Bilirubin [Pending], Direct Bilirubin [Pending], Aspartate Amino Transf (AST/SGOT) [Pending], Alanine Aminotransferase (ALT/SGPT) [Pending], Alkaline Phosphatase [Pending], Total Protein [Pending], Albumin [Pending] Height (Feet): 5 Height (Inches): 5.00 Weight (Pounds): 159 Objective exam stable mcmanus indwelling urine blood-tinged/payam Bong Valerio MD Apr 18, 2020 09:51
[2020-04-18 09:52] LABS: ALANINE AMINOTRANSFERASE 23 U/L (12-78); ALBUMIN 2.3 G/DL (3.4-5.0); ALKALINE PHOSPHATASE 87 U/L (46-116); ASPARTATE AMINO TRANSFERASE 21 U/L (15-37); BILIRUBIN,DIRECT < 0.1 MG/DL (0.0-0.3); BILIRUBIN,TOTAL 0.3 MG/DL (0.2-1.0)
--- NOTE | 2020-04-18 10:40 | Infectious Diseases Prog Note ---
Assessment/Plan Assessment: Septic Shock- SP COVID19 pneumonia- on 2l NC> hypoxic on ABG, now at 4L NC -04/12 CXR: Bilateral infiltrates, developing since 04/08/2020, likely on the basis of pneumonia. -04/08 CXR: Mild diffuse peribronchial thickening in the absence of airspace consolidation, which is nonspecific but can be seen with infectious/inflammatory airways disease in the appropriate clinical context. rapid covid pcr + UTI -04/09 ucx >100k VRE (E. faecium); S linezolid -04/08 u/a wbc tnct, nit neg, leuk +3; ucx <10k P, mirabilis (S Ceftriaxone, Zosyn), >100k gamma hemolytic strep Gram positive bacteremia- likely contaminant -04/08 Bcx 1/4 S. hominis, 2/4 S. auricularis ; 04/10 Bcx NGTD Low grade fever, SP No leukocytosis Vaginal bleeding -CT abd/p wo: Study limited due to lack of IV contrast. Pulmonary findings could represent multifocal pneumonia or aspiration.These findings could also represent viral pneumonia, although this is not highly specific pattern. Promin ent rectal stool burden with mild wall thickening could represent stercoral colitis in the proper context. Otherwise, diffuse large colonic stool burden could be a cause for pain. Left superior renal pole ill-defined mild hyperdensity could be a manifestation of chronic medical renal disease in the proper context. Consider outpatient CT adrenal glands to further evaluate indeterminate left adrenal 1.2 cm nodularity. Calcified fibroid uterus. Appendectomy. ROSA MARIA, SP AST elevation; improving inoperable endometrial adenocarcinoma sp brachytherapy 12/16/19 HTN CVA/TIA hx of DVT MDD HLD dysphagia Afib Dm2 chronic lacunar infarction w/ b/l ganglia and king radiata and L parietal lobe stroke hx of UTI [place] resident( [facility]) Plan: -Cont PO Zyvox #7 for both GPC bacteremia and VRE UTI -Cont dex 6mg daily - 04/17/20 SP remdesivir #5/5 -04/14 SP Cefepime #7/7 for Proteus UTI -04/12 SP IV Vancomycin #5 -f/u cx -Monitor CBC/CMP, temperatures -COVID19 isolation Thank you for this consultation. Will continue to follow along with you. Subjective Allergies: Coded Allergies: No Known Allergies (Unverified , 03/11/19) Afebrile Leukocytosis mild and persistent Stable on 4L NC Objective Last 24 Hour Vital Signs Date Time Temp Pulse Resp B/P (MAP) Pulse Ox O2 Delivery O2 Flow Rate FiO2 04/18/20 08:00 98.0 91 18 140/80 (100) 95 04/18/20 08:00 79 04/18/20 04:00 92 04/18/20 04:00 98.1 102 16 133/84 (100) 100 04/18/20 00:00 97.9 105 16 123/72 (89) 91 04/18/20 00:00 117 04/17/20 21:00 Nasal Cannula 4.0 04/17/20 20:00 111 04/17/20 20:00 97.5 109 16 90/53 (65) 95 04/17/20 16:00 111 04/17/20 16:00 97.9 116 20 115/62 (79) 95 04/17/20 12:00 97.9 114 18 129/75 (93) 97 04/17/20 12:00 109 Height (Feet): 5 Height (Inches): 5.00 Weight (Pounds): 159 GENERAL: On 4L NC HEENT: NCAT, MMM, EOMI LUNGS: Equal rise and fall of chest B/L no accessory muscle use ABDOMEN: Soft, nondistended EXTREMITIES: No cyanosis, clubbing, or edema. Laboratory Tests Test 04/17/20 11:58 04/17/20 17:44 04/17/20 23:31 04/18/20 06:04 POC Whole Blood Glucose Pending 133 MG/DL (74-106) H 120 MG/DL (74-106) H Pending Test 04/18/20 07:25 White Blood Count 14.5 K/UL (4.8-10.8) H Red Blood Count 3.16 M/UL (4.20-5.40) L Hemoglobin 9.2 G/DL (12.0-16.0) L Hematocrit 27.4 % (37.0-47.0) L Mean Corpuscular Volume 87 FL (80-99) Mean Corpuscular Hemoglobin 29.2 PG (27.0-31.0) Mean Corpuscular Hemoglobin Concent 33.6 G/DL (32.0-36.0) Red Cell Distribution Width 14.0 % (11.6-14.8) Platelet Count 349 K/UL (150-450) Mean Platelet Volume 5.2 FL (6.5-10.1) L Neutrophils (%) (Auto) 84.5 % (45.0-75.0) H Lymphocytes (%) (Auto) 8.2 % (20.0-45.0) L Monocytes (%) (Auto) 6.1 % (1.0-10.0) Eosinophils (%) (Auto) 0.0 % (0.0-3.0) Basophils (%) (Auto) 1.2 % (0.0-2.0) Sodium Level 137 MMOL/L (136-145) Potassium Level 4.4 MMOL/L (3.5-5.1) Chloride Level 104 MMOL/L (98-107) Carbon Dioxide Level 29 MMOL/L (21-32) Anion Gap 4 mmol/L (5-15) L Blood Urea Nitrogen 13 mg/dL (7-18) Creatinine 0.5 MG/DL (0.55-1.30) L Estimat Glomerular Filtration Rate > 60 mL/min (>60) Glucose Level 107 MG/DL (74-106) H Calcium Level 8.6 MG/DL (8.5-10.1) Phosphorus Level 3.0 MG/DL (2.5-4.9) Magnesium Level 1.8 MG/DL (1.8-2.4) Total Bilirubin 0.3 MG/DL (0.2-1.0) Direct Bilirubin < 0.1 MG/DL (0.0-0.3) Aspartate Amino Transf (AST/SGOT) 21 U/L (15-37) Alanine Aminotransferase (ALT/SGPT) 23 U/L (12-78) Alkaline Phosphatase 87 U/L (46-116) Total Protein 4.8 G/DL (6.4-8.2) L Albumin 2.3 G/DL (3.4-5.0) L Current Medications Medications (Trade) Dose Ordered Sig/Jere Route PRN Reason Start Time Stop Time Status Last Admin Dose Admin Acetaminophen (Tylenol) 650 mg Q4H PRN ORAL fever 04/08/20 19:00 05/08/20 18:59 04/12/20 00:27 Ascorbic Acid (Vitamin C) 500 mg TWICE A DAY ORAL 04/14/20 18:00 05/14/20 17:59 04/18/20 08:19 Chlorhexidine Gluconate (Geno-Hex 2%) 1 applic DAILY@2000 TOPIC 04/08/20 20:00 07/07/20 19:59 04/17/20 20:33 Dexamethasone (Decadron) 6 mg DAILY ORAL 04/12/20 15:15 04/21/20 09:01 04/18/20 08:19 Dextrose (Dextrose 50%) 25 ml Q30M PRN IV Hypoglycemia 04/17/20 12:00 07/16/20 11:59 Dextrose (Dextrose 50%) 50 ml Q30M PRN IV Hypoglycemia 04/17/20 12:00 07/16/20 11:59 Dextrose/ Electrolytes 1,000 ml @ 30 mls/hr Q24H IV 04/08/20 22:30 05/08/20 22:29 04/17/20 17:52 Enoxaparin Sodium (Lovenox) 40 mg DAILY SUBQ 04/14/20 20:00 07/13/20 19:59 04/17/20 09:54 Insulin Aspart (NovoLOG) Q6H SUBQ 04/17/20 12:00 07/16/20 11:59 Linezolid (Zyvox) 600 mg EVERY 12 HOURS ORAL 04/12/20 15:00 04/20/20 14:59 04/18/20 08:20 Metoprolol Tartrate (Lopressor) 5 mg Q1H PRN IVP spb more than 120 04/08/20 19:00 07/07/20 18:59 Multivitamins (Multivitamins) 1 tab DAILY ORAL 04/15/20 09:00 05/15/20 08:59 04/18/20 08:19 Ondansetron HCl (Zofran) 4 mg Q6H PRN IVP Nausea & Vomiting 04/08/20 19:00 05/08/20 18:59 Pantoprazole (Protonix) 40 mg EVERY 12 HOURS IVP 04/10/20 21:00 05/10/20 20:59 04/18/20 08:19 Polyethylene Glycol (Miralax) 17 gm BEDTIME ORAL 04/09/20 21:00 05/09/20 20:59 04/17/20 20:33 Polyethylene Glycol (Miralax) 17 gm DAILYPRN PRN ORAL Constipation 04/08/20 19:00 05/08/20 18:59 Zinc Sulfate (Zinc Sulfate) 220 mg DAILY ORAL 04/15/20 09:00 04/25/20 08:59 04/18/20 08:19 Prabhu Jacques MD Apr 18, 2020 10:40
[2020-04-18 12:00] VITALS: BP 135/75
--- NOTE | 2020-04-18 12:08 | Pulmonology Progress Note ---
Subjective ROS Limited/Unobtainable: Yes Constitutional: Reports: fatigue Allergies: Coded Allergies: No Known Allergies (Unverified , 03/11/19) Objective Last 24 Hour Vital Signs Date Time Temp Pulse Resp B/P (MAP) Pulse Ox O2 Delivery O2 Flow Rate FiO2 04/18/20 09:00 Nasal Cannula 4.0 04/18/20 08:00 98.0 91 18 140/80 (100) 95 04/18/20 08:00 79 04/18/20 04:00 92 04/18/20 04:00 98.1 102 16 133/84 (100) 100 04/18/20 00:00 97.9 105 16 123/72 (89) 91 04/18/20 00:00 117 04/17/20 21:00 Nasal Cannula 4.0 04/17/20 20:00 111 04/17/20 20:00 97.5 109 16 90/53 (65) 95 04/17/20 16:00 111 04/17/20 16:00 97.9 116 20 115/62 (79) 95 Intake and Output 04/17/20 04/18/20 19:00 07:00 Intake Total 795 ml Output Total 300 ml 850 ml Balance 495 ml -850 ml Free Water 180 ml IV Total 120 ml Tube Feeding 495 ml Output Urine Total 300 ml Other 850 ml # Bowel Movements 1 General Appearance: WD/WN HEENT: normocephalic, atraumatic Respiratory: chest wall non-tender, lungs clear Breasts: no masses Cardiovascular: normal peripheral pulses Abdomen: normal bowel sounds, soft, non tender Extremities: no cyanosis Neurologic: bologna maker II-XII 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, alert Laboratory Tests 04/17/20 17:44: POC Whole Blood Glucose 133H 04/17/20 23:31: POC Whole Blood Glucose 120H 04/18/20 06:04: POC Whole Blood Glucose [Pending] 04/18/20 07:25: White Blood Count 14.5H, Red Blood Count 3.16L, Hemoglobin 9.2L, Hematocrit 27.4L, Mean Corpuscular Volume 87, Mean Corpuscular Hemoglobin 29.2, Mean Corpuscular Hemoglobin Concent 33.6, Red Cell Distribution Width 14.0, Platelet Count 349, Mean Platelet Volume 5.2L, Neutrophils (%) (Auto) 84.5H, Lymphocytes (%) (Auto) 8.2L, Monocytes (%) (Auto) 6.1, Eosinophils (%) (Auto) 0.0, Basophils (%) (Auto) 1.2, Sodium Level 137, Potassium Level 4.4, Chloride Level 104, Carbon Dioxide Level 29, Anion Gap 4L, Blood Urea Nitrogen 13, Creatinine 0.5L, Estimat Glomerular Filtration Rate > 60, Glucose Level 107H, Calcium Level 8.6, Phosphorus Level 3.0, Magnesium Level 1.8, Total Bilirubin 0.3, Direct Bilirubin < 0.1, Aspartate Amino Transf (AST/SGOT) 21, Alanine Aminotransferase (ALT/SGPT) 23, Alkaline Phosphatase 87, Total Protein 4.8L, Albumin 2.3L Current Medications Medications (Trade) Dose Ordered Sig/Jere Route PRN Reason Start Time Stop Time Status Last Admin Dose Admin Acetaminophen (Tylenol) 650 mg Q4H PRN ORAL fever 04/08/20 19:00 05/08/20 18:59 04/12/20 00:27 Ascorbic Acid (Vitamin C) 500 mg TWICE A DAY ORAL 04/14/20 18:00 05/14/20 17:59 04/18/20 08:19 Chlorhexidine Gluconate (Geno-Hex 2%) 1 applic DAILY@2000 TOPIC 04/08/20 20:00 07/07/20 19:59 04/17/20 20:33 Dexamethasone (Decadron) 6 mg DAILY ORAL 04/12/20 15:15 04/21/20 09:01 04/18/20 08:19 Dextrose (Dextrose 50%) 25 ml Q30M PRN IV Hypoglycemia 04/17/20 12:00 07/16/20 11:59 Dextrose (Dextrose 50%) 50 ml Q30M PRN IV Hypoglycemia 04/17/20 12:00 07/16/20 11:59 Dextrose/ Electrolytes 1,000 ml @ 30 mls/hr Q24H IV 04/08/20 22:30 05/08/20 22:29 04/17/20 17:52 Enoxaparin Sodium (Lovenox) 40 mg DAILY SUBQ 04/14/20 20:00 07/13/20 19:59 04/17/20 09:54 Insulin Aspart (NovoLOG) Q6H SUBQ 04/17/20 12:00 07/16/20 11:59 Linezolid (Zyvox) 600 mg EVERY 12 HOURS ORAL 04/12/20 15:00 04/20/20 14:59 04/18/20 08:20 Metoprolol Tartrate (Lopressor) 5 mg Q1H PRN IVP spb more than 120 04/08/20 19:00 07/07/20 18:59 Multivitamins (Multivitamins) 1 tab DAILY ORAL 04/15/20 09:00 05/15/20 08:59 04/18/20 08:19 Ondansetron HCl (Zofran) 4 mg Q6H PRN IVP Nausea & Vomiting 04/08/20 19:00 05/08/20 18:59 Pantoprazole (Protonix) 40 mg EVERY 12 HOURS IVP 04/10/20 21:00 05/10/20 20:59 04/18/20 08:19 Polyethylene Glycol (Miralax) 17 gm BEDTIME ORAL 04/09/20 21:00 05/09/20 20:59 04/17/20 20:33 Polyethylene Glycol (Miralax) 17 gm DAILYPRN PRN ORAL Constipation 04/08/20 19:00 05/08/20 18:59 Zinc Sulfate (Zinc Sulfate) 220 mg DAILY ORAL 04/15/20 09:00 04/25/20 08:59 04/18/20 08:19 Assessment/Plan Problems: (1) Hemorrhagic shock (2) Sepsis (3) Bacteremia (4) History of CVA (cerebrovascular accident) (5) Rectal bleeding (6) Hematuria Assessment/Plan had episodes of vomitin ng tube is vernon confused Neuro evaluation requested f/u ID recommendations check electrolytes GI note appreciated continue Decadron dvt prophylaxis. Marina Buitrago MD Apr 18, 2020 12:08
--- NOTE | 2020-04-18 14:02 | Nephrology Progress Note ---
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 Electrolytes and renal parameters stable. April 17: Lab reviewed. Stable from renal standpoint of view April 16: Labs reviewed. Remains stable from renal standpoint of view. Continue per consultants. April 15: Labs reviewed. Electrolyte abnormalities addressed. Continue as is. April 14: Labs reviewed. Low phosphorus and low magnesium corrected. Continue per consultants. Blood pressure remains stable. April 13: Electrolytes within normal limit. Renal parameters within normal limit. Continue per consultants. April 12: Electrolyte abnormalities noted and addressed. Continue per consultants Magnesium IV supplement as needed Potassium IV supplement as needed Phosphorus IV supplement as needed Monitor electrolytes Monitor hemoglobin hematocrit IV Protonix Adjust IV fluid Antibiotics per consultants Subjective ROS Limited/Unobtainable: No Objective Objective Last 24 Hour Vital Signs Date Time Temp Pulse Resp B/P (MAP) Pulse Ox O2 Delivery O2 Flow Rate FiO2 04/18/20 12:00 98.6 83 20 135/75 (95) 96 04/18/20 12:00 90 04/18/20 09:00 Nasal Cannula 4.0 04/18/20 08:00 98.0 91 18 140/80 (100) 95 04/18/20 08:00 79 04/18/20 04:00 92 04/18/20 04:00 98.1 102 16 133/84 (100) 100 04/18/20 00:00 97.9 105 16 123/72 (89) 91 04/18/20 00:00 117 04/17/20 21:00 Nasal Cannula 4.0 04/17/20 20:00 111 04/17/20 20:00 97.5 109 16 90/53 (65) 95 04/17/20 16:00 111 04/17/20 16:00 97.9 116 20 115/62 (79) 95 Intake and Output 04/17/20 04/18/20 18:59 06:59 Intake Total 880 ml Output Total 300 ml 850 ml Balance 580 ml -850 ml Free Water 180 ml IV Total 150 ml Tube Feeding 550 ml Output Urine Total 300 ml Other 850 ml # Bowel Movements 1 Laboratory Tests 04/17/20 17:44: POC Whole Blood Glucose 133H 04/17/20 23:31: POC Whole Blood Glucose 120H 04/18/20 06:04: POC Whole Blood Glucose [Pending] 04/18/20 07:25: White Blood Count 14.5H, Red Blood Count 3.16L, Hemoglobin 9.2L, Hematocrit 27.4L, Mean Corpuscular Volume 87, Mean Corpuscular Hemoglobin 29.2, Mean Corpuscular Hemoglobin Concent 33.6, Red Cell Distribution Width 14.0, Platelet Count 349, Mean Platelet Volume 5.2L, Neutrophils (%) (Auto) 84.5H, Lymphocytes (%) (Auto) 8.2L, Monocytes (%) (Auto) 6.1, Eosinophils (%) (Auto) 0.0, Basophils (%) (Auto) 1.2, Sodium Level 137, Potassium Level 4.4, Chloride Level 104, Carbon Dioxide Level 29, Anion Gap 4L, Blood Urea Nitrogen 13, Creatinine 0.5L, Estimat Glomerular Filtration Rate > 60, Glucose Level 107H, Calcium Level 8.6, Phosphorus Level 3.0, Magnesium Level 1.8, Total Bilirubin 0.3, Direct Bilirubin < 0.1, Aspartate Amino Transf (AST/SGOT) 21, Alanine Aminotransferase (ALT/SGPT) 23, Alkaline Phosphatase 87, Total Protein 4.8L, Albumin 2.3L Height (Feet): 5 Height (Inches): 5.00 Weight (Pounds): 159 General Appearance: no apparent distress Objective No change Steven Edwards MD Apr 18, 2020 14:02
--- NOTE | 2020-04-18 15:04 | NUR ---
CASE MANAGEMENT: REVIEW SI: COVID-19 . PNA . RECTAL BLEEDING . HEMATURIA T 97.9 HR 105 RR 16 BP 123/72 SAT 91% NC/4L WBC 14.5 H/H 9.2/27.4 IS: ZYVOX PO Q12HR DECADRON PO QD PROTONIX IV Q12HR CEFEPIME IV Q12HR D5 1/2 NS w/KCl 20MEQ Q24HR PEG PLACEMENT PENDING TELEMETRY UNIT STATUS DCP: PATIENT IS FROM [facility]
--- NOTE | 2020-04-18 15:50 | NUR ---
NURSE NOTES: Did not hear back from Dr. Park so contacted Dr. Pacheco.
[2020-04-18 16:00] VITALS: BP 137/72
--- NOTE | 2020-04-18 16:34 | Diagnostic Imaging Report ---
Indication: Shortness of Technique: One view of the chest Comparison: 04/15/2020 Findings: The heart is enlarged. There is questionable mild interstitial congestion, increased from previous exam. More focal infiltrate is seen in the right infrahilar region, appearing unchanged. Nasogastric tube has been place, tip in good position Impression: Unchanged right infrahilar infiltrate Suspect slightly increased mild interstitial congestion
--- NOTE | 2020-04-18 17:30 | NUR ---
NURSE NOTES: Noted that entire right leg is swollen and warmer than left leg. Chantell Duplex is pending however pt is not receiving lovenox due to hematuria (Per Dr. Valerio). Contacted Dr. Wu however he is out of office and covering physicina is for emergencies only. Contacted Dr. Buitrago. Awaiting response. Addendum: 04/18/20 at 1844 by Ade Haddad RN Contacted Dr. Mendoza. Per , start aspirin 81mg q daily.
--- NOTE | 2020-04-18 18:23 | NUR ---
NURSE NOTES: This pt is NPO with no NG feed running. Blood sugar is only from 75ml/hr IV. While I note that bs has risen since last check, it is only at the minimum level for insulin. i will endorse to yue RN to ensure she monitors and gives insulin if BS continues to climb up. Addendum: 04/18/20 at 1825 by Ade Haddad RN Order to give even if not eating also noted, however do not feel comfortable given it is only 140.
[2020-04-18] MEDS: Aspirin Baby 81mg NG SCH (18:43)
--- NOTE | 2020-04-18 19:09 | Internal Med Progress Note ---
Subjective Date of Service: Apr 18, 2020 Physician Name KatherineTariq Attending Physician Dewayne Mendoza MD Current Medications Medications (Trade) Dose Ordered Sig/Jere Route PRN Reason Start Time Stop Time Status Last Admin Dose Admin Acetaminophen (Tylenol) 650 mg Q4H PRN ORAL fever 04/08/20 19:00 05/08/20 18:59 04/12/20 00:27 Ascorbic Acid (Vitamin C) 500 mg TWICE A DAY ORAL 04/14/20 18:00 05/14/20 17:59 04/18/20 18:22 Aspirin (ASA) 81 mg DAILY NG 04/18/20 18:45 06/02/20 18:44 04/18/20 18:43 Chlorhexidine Gluconate (Geno-Hex 2%) 1 applic DAILY@1999 TOPIC 04/08/20 20:00 07/07/20 19:59 04/17/20 20:33 Dexamethasone (Decadron) 6 mg DAILY ORAL 04/12/20 15:15 04/21/20 09:01 04/18/20 08:19 Dextrose (Dextrose 50%) 25 ml Q30M PRN IV Hypoglycemia 04/17/20 12:00 07/16/20 11:59 Dextrose (Dextrose 50%) 50 ml Q30M PRN IV Hypoglycemia 04/17/20 12:00 07/16/20 11:59 Dextrose/ Electrolytes 1,000 ml @ 75 mls/hr [id number] IV 04/08/20 22:30 05/08/20 22:29 04/17/20 17:52 Enoxaparin Sodium (Lovenox) 40 mg DAILY SUBQ 04/14/20 20:00 07/13/20 19:59 04/17/20 09:54 Insulin Aspart (NovoLOG) Q6H SUBQ 04/17/20 12:00 07/16/20 11:59 Linezolid (Zyvox) 600 mg EVERY 12 HOURS ORAL 04/12/20 15:00 04/20/20 14:59 04/18/20 08:20 Metoprolol Tartrate (Lopressor) 5 mg Q1H PRN IVP spb more than 120 04/08/20 19:00 07/07/20 18:59 Multivitamins (Multivitamins) 1 tab DAILY ORAL 04/15/20 09:00 05/15/20 08:59 04/18/20 08:19 Ondansetron HCl (Zofran) 4 mg Q6H PRN IVP Nausea & Vomiting 04/08/20 19:00 05/08/20 18:59 Pantoprazole (Protonix) 40 mg EVERY 12 HOURS IVP 04/10/20 21:00 05/10/20 20:59 04/18/20 08:19 Polyethylene Glycol (Miralax) 17 gm BEDTIME ORAL 04/09/20 21:00 05/09/20 20:59 04/17/20 20:33 Polyethylene Glycol (Miralax) 17 gm DAILYPRN PRN ORAL Constipation 04/08/20 19:00 05/08/20 18:59 Zinc Sulfate (Zinc Sulfate) 220 mg DAILY ORAL 04/15/20 09:00 04/25/20 08:59 04/18/20 08:19 Allergies: Coded Allergies: No Known Allergies (Unverified , 03/11/19) ROS Limited/Unobtainable: Yes Subjective 64 YO F with inoperable uterine cancer admitted with tachycardia. Now atrial fibrillation with rapid ventricular rate. Also COVID 19 positive. Cover for Int Med-DR Mendoza Objective Last Vital Signs Date Time Temp Pulse Resp B/P (MAP) Pulse Ox O2 Delivery O2 Flow Rate FiO2 04/18/20 16:00 97.9 103 18 137/72 (93) 95 04/18/20 09:00 Nasal Cannula 4.0 04/14/20 19:42 28 Laboratory Tests Test 04/17/20 23:31 04/18/20 06:04 04/18/20 07:25 POC Whole Blood Glucose 120 MG/DL (74-106) H Pending White Blood Count 14.5 K/UL (4.8-10.8) H Red Blood Count 3.16 M/UL (4.20-5.40) L Hemoglobin 9.2 G/DL (12.0-16.0) L Hematocrit 27.4 % (37.0-47.0) L Mean Corpuscular Volume 87 FL (80-99) Mean Corpuscular Hemoglobin 29.2 PG (27.0-31.0) Mean Corpuscular Hemoglobin Concent 33.6 G/DL (32.0-36.0) Red Cell Distribution Width 14.0 % (11.6-14.8) Platelet Count 349 K/UL (150-450) Mean Platelet Volume 5.2 FL (6.5-10.1) L Neutrophils (%) (Auto) 84.5 % (45.0-75.0) H Lymphocytes (%) (Auto) 8.2 % (20.0-45.0) L Monocytes (%) (Auto) 6.1 % (1.0-10.0) Eosinophils (%) (Auto) 0.0 % (0.0-3.0) Basophils (%) (Auto) 1.2 % (0.0-2.0) Sodium Level 137 MMOL/L (136-145) Potassium Level 4.4 MMOL/L (3.5-5.1) Chloride Level 104 MMOL/L (98-107) Carbon Dioxide Level 29 MMOL/L (21-32) Anion Gap 4 mmol/L (5-15) L Blood Urea Nitrogen 13 mg/dL (7-18) Creatinine 0.5 MG/DL (0.55-1.30) L Estimat Glomerular Filtration Rate > 60 mL/min (>60) Glucose Level 107 MG/DL (74-106) H Calcium Level 8.6 MG/DL (8.5-10.1) Phosphorus Level 3.0 MG/DL (2.5-4.9) Magnesium Level 1.8 MG/DL (1.8-2.4) Total Bilirubin 0.3 MG/DL (0.2-1.0) Direct Bilirubin < 0.1 MG/DL (0.0-0.3) Aspartate Amino Transf (AST/SGOT) 21 U/L (15-37) Alanine Aminotransferase (ALT/SGPT) 23 U/L (12-78) Alkaline Phosphatase 87 U/L (46-116) Total Protein 4.8 G/DL (6.4-8.2) L Albumin 2.3 G/DL (3.4-5.0) L Intake and Output 04/17/20 04/18/20 19:00 07:00 Intake Total 795 ml Output Total 300 ml 850 ml Balance 495 ml -850 ml Free Water 180 ml IV Total 120 ml Tube Feeding 495 ml Output Urine Total 300 ml Other 850 ml # Bowel Movements 1 Objective PHYSICAL EXAMINATION: GENERAL: The patient awake, responsive, however altered and confused. The patient appears to be paler and chronically-ill appearing. HEAD AND NECK: Pupils are equal and reactive to light. Extraocular movements are intact. Neck was supple. No JVD. LUNGS: Bilateral air entry. Decreased air in the bases. HEART: S1, S2. Tachycardic, irregular. No murmur or gallop was appreciated. ABDOMEN: Soft, nondistended. Tenderness on the lower abdominal area. Mildly obese. EXTREMITIES: No cyanosis, clubbing, or edema. GENITOURINARY: The patient noted to have Lowe catheter with dark red urine collection in a Lowe catheter. NEUROLOGIC: Cranial nerves II through XII grossly intact. The patient moving all extremities equally. Sensory is intact. Gait was not able to assess due to the patient's status. RECTAL: Refused and deferred. PSYCHIATRIC: Mood and affect, unable to obtain due to the patient's status. Assessment/Plan Assessment/Plan ASSESSMENT: 1. COVID-19 pneumonia. 2. Altered mental status, most likely secondary to toxic metabolic encephalopathy. 3. Atrial fibrillation with rapid ventricular rate. 4. Anemia most likely secondary to acute blood loss. 5. Sepsis secondary to urinary tract infection as well as pneumonia. 6. Vaginal bleeding. 7. UTI=VRE 8. History of diabetes type 2. 9. Inoperable endometrial adenocarcinoma, status post brachytherapy. 10. Hypertension. 11. History of lacunar infarction. PLAN: 1. Telemetry 2. Dr. Buitrago=Pulmonary/Critical Care 3. Dr. Wale Wu = Cardiology. 4. antibiotic=linezolid; S/P vancomycin and cefepime. 5. Admit to droplet isolation [facility]- room. 6. Code status =Full Code. 7. DVT prophylaxis SCD. 8. S/P transfusion 2 units of packed RBC. 9. Continue Levophed as needed to support the blood pressure 10. ID=Tariq Márquez MD Apr 18, 2020 19:09
--- NOTE | 2020-04-18 19:37 | NUR ---
NURSE HAND-OFF REPORT: Important Events on Shift: Right leg swollen and warm to touch, blood in urine Patient Status: Diet: Pending Orders: Pending Results/Labs: Pending MD notification: Latest Vital Signs: Temperature 97.9 , Pulse 97 , B/P 137 /72 , Respiratory Rate 18 , O2 SAT 95 , Nasal Cannula, O2 Flow Rate 4.0 . Vital Sign Comment: EKG Rhythm: Sinus Rhythm Rhythm change?: N MD Notified?: N - MD Response: Latest Ortega Fall Score: 55 Fall Risk: High Risk Safety Measures: Call light Within Reach, Bed Alarm Zone 1, Side Rails Side Rails x2, Bed position Low and Locked. Fall Precautions: Yellow Socks Yellow Gown Door Sign Patient Fall Education Report given to . Addendum: 04/18/20 at 1940 by Ade Haddad RN Endorsed that I held insulin with last BS of 140 since it is the lowest bs that requires insulin.
--- NOTE | 2020-04-18 19:45 | NUR ---
NURSE NOTES: Patient received from VARUN Booker. Patient is A/O x 2. Patient is on 4 L nasal cannula. Patient has bilateral wrist restraint, checked and secured. Patient right leg is swelling and blood in mcmanus is present and visible. Patient ahs an 18 gauge IV on her left AC with a D5 1/2 NS with 20 meq KCL @ 75 ml/hr. Patient's NG tube is currently not running, with no residual present noted. Bed is in the lowest position, call light within reach. Will continue to monitor.
[2020-04-18 20:00] VITALS: BP 128/78
--- NOTE | 2020-04-18 20:26 | General Progress Note ---
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 noted to have high NGT residuals today TF held Objective Last 24 Hour Vital Signs Date Time Temp Pulse Resp B/P (MAP) Pulse Ox O2 Delivery O2 Flow Rate FiO2 04/18/20 16:00 97.9 103 18 137/72 (93) 95 04/18/20 16:00 97 04/18/20 12:00 98.6 83 20 135/75 (95) 96 04/18/20 12:00 90 04/18/20 09:00 Nasal Cannula 4.0 04/18/20 08:00 98.0 91 18 140/80 (100) 95 04/18/20 08:00 79 04/18/20 04:00 92 04/18/20 04:00 98.1 102 16 133/84 (100) 100 04/18/20 00:00 97.9 105 16 123/72 (89) 91 04/18/20 00:00 117 04/17/20 21:00 Nasal Cannula 4.0 Intake and Output 04/17/20 04/18/20 19:00 07:00 Intake Total 795 ml Output Total 300 ml 850 ml Balance 495 ml -850 ml Free Water 180 ml IV Total 120 ml Tube Feeding 495 ml Output Urine Total 300 ml Other 850 ml # Bowel Movements 1 Laboratory Tests 04/17/20 23:31: POC Whole Blood Glucose 120H 04/18/20 06:04: POC Whole Blood Glucose [Pending] 04/18/20 07:25: White Blood Count 14.5H, Red Blood Count 3.16L, Hemoglobin 9.2L, Hematocrit 27.4L, Mean Corpuscular Volume 87, Mean Corpuscular Hemoglobin 29.2, Mean Corpuscular Hemoglobin Concent 33.6, Red Cell Distribution Width 14.0, Platelet Count 349, Mean Platelet Volume 5.2L, Neutrophils (%) (Auto) 84.5H, Lymphocytes (%) (Auto) 8.2L, Monocytes (%) (Auto) 6.1, Eosinophils (%) (Auto) 0.0, Basophils (%) (Auto) 1.2, Sodium Level 137, Potassium Level 4.4, Chloride Level 104, Carbon Dioxide Level 29, Anion Gap 4L, Blood Urea Nitrogen 13, Creatinine 0.5L, Estimat Glomerular Filtration Rate > 60, Glucose Level 107H, Calcium Level 8.6, Phosphorus Level 3.0, Magnesium Level 1.8, Total Bilirubin 0.3, Direct Bilirubin < 0.1, Aspartate Amino Transf (AST/SGOT) 21, Alanine Aminotransferase (ALT/SGPT) 23, Alkaline Phosphatase 87, Total Protein 4.8L, Albumin 2.3L Height (Feet): 5 Height (Inches): 5.00 Weight (Pounds): 159 Objective Debilitated elderly woman NCAT, (+) NGT supple CTA RR abd soft NT ND no edema OBS Assessment/Plan Status: stable, unchanged Assessment/Plan: Assessment/Plan Assessment/Plan: 1. History of hypertension. 2. Diabetes. 3. CVA. 4. UTI. 5. Colitis. 6. Endometrial cancer. 7. TF intolerance 8. COVID (+) 9 . anemia and leukocytosis hgb 10 no recurrent gib passed swallow eval on oral diet still poor po intake d/w her sister>>> plan peg when stable Hold TF due to residuals Magdi Pacheco MD Apr 18, 2020 20:26
[2020-04-18] MEDS: Dyna-Hex 2% Top Sol 2oz TOPIC SCH (20:47)
--- NOTE | 2020-04-18 20:59 | Surgery Progress Note ---
Surgery Progress Note Subjective Additional Comments no acute events Objective Last 24 Hour Vital Signs Date Time Temp Pulse Resp B/P (MAP) Pulse Ox O2 Delivery O2 Flow Rate FiO2 04/18/20 16:00 97.9 103 18 137/72 (93) 95 04/18/20 16:00 97 04/18/20 12:00 98.6 83 20 135/75 (95) 96 04/18/20 12:00 90 04/18/20 09:00 Nasal Cannula 4.0 04/18/20 08:00 98.0 91 18 140/80 (100) 95 04/18/20 08:00 79 04/18/20 04:00 92 04/18/20 04:00 98.1 102 16 133/84 (100) 100 04/18/20 00:00 97.9 105 16 123/72 (89) 91 04/18/20 00:00 117 04/17/20 21:00 Nasal Cannula 4.0 I&O Intake and Output 04/17/20 04/18/20 19:00 07:00 Intake Total 795 ml Output Total 300 ml 850 ml Balance 495 ml -850 ml Free Water 180 ml IV Total 120 ml Tube Feeding 495 ml Output Urine Total 300 ml Other 850 ml # Bowel Movements 1 Cardiovascular: RSR Respiratory: clear, decreased breath sounds Abdomen: soft, non-tender Extremities: no edema, no tenderness Laboratory Tests Test 04/17/20 23:31 04/18/20 06:04 04/18/20 07:25 POC Whole Blood Glucose 120 MG/DL (74-106) H Pending White Blood Count 14.5 K/UL (4.8-10.8) H Red Blood Count 3.16 M/UL (4.20-5.40) L Hemoglobin 9.2 G/DL (12.0-16.0) L Hematocrit 27.4 % (37.0-47.0) L Mean Corpuscular Volume 87 FL (80-99) Mean Corpuscular Hemoglobin 29.2 PG (27.0-31.0) Mean Corpuscular Hemoglobin Concent 33.6 G/DL (32.0-36.0) Red Cell Distribution Width 14.0 % (11.6-14.8) Platelet Count 349 K/UL (150-450) Mean Platelet Volume 5.2 FL (6.5-10.1) L Neutrophils (%) (Auto) 84.5 % (45.0-75.0) H Lymphocytes (%) (Auto) 8.2 % (20.0-45.0) L Monocytes (%) (Auto) 6.1 % (1.0-10.0) Eosinophils (%) (Auto) 0.0 % (0.0-3.0) Basophils (%) (Auto) 1.2 % (0.0-2.0) Sodium Level 137 MMOL/L (136-145) Potassium Level 4.4 MMOL/L (3.5-5.1) Chloride Level 104 MMOL/L (98-107) Carbon Dioxide Level 29 MMOL/L (21-32) Anion Gap 4 mmol/L (5-15) L Blood Urea Nitrogen 13 mg/dL (7-18) Creatinine 0.5 MG/DL (0.55-1.30) L Estimat Glomerular Filtration Rate > 60 mL/min (>60) Glucose Level 107 MG/DL (74-106) H Calcium Level 8.6 MG/DL (8.5-10.1) Phosphorus Level 3.0 MG/DL (2.5-4.9) Magnesium Level 1.8 MG/DL (1.8-2.4) Total Bilirubin 0.3 MG/DL (0.2-1.0) Direct Bilirubin < 0.1 MG/DL (0.0-0.3) Aspartate Amino Transf (AST/SGOT) 21 U/L (15-37) Alanine Aminotransferase (ALT/SGPT) 23 U/L (12-78) Alkaline Phosphatase 87 U/L (46-116) Total Protein 4.8 G/DL (6.4-8.2) L Albumin 2.3 G/DL (3.4-5.0) L Plan Problems: (1) Hematuria (2) Rectal bleeding Assessment & Plan: [age]-year-old female identified to have rectal bleeding on admission. GI aware surgery aware no active bleeding at this time hemoglobin noted. Transfuse PRBC as needed. Pending scope consideration. passed swallow no bleeding on diet may need peg as per GI cont diet supplements added for wound care DAILY ESTIMATED NEEDS: Needs based on Obesity, cardiac/ 67.6kg abw 22-27 kcals/kg 3685-8247 total kcals 1-1.5 g protein/kg 68-101 g total protein 25-30 mL/kg 4821-1188 total fluid mLs NUTRITION DIAGNOSIS: * Swallowing difficulty R/T dysphagia, h/o CVA, clinical condition as evidenced by seen by VP OF [employer] w/ rec for pureed moist texture w/ thin liquids. 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 CURRENT DIET:[facility] MED, pureed moist w/ thin liquids PO DIET RECOMMENDATIONS: Liberalized REGULAR w/ poor PO ([facility] MED+LOW NA w/ PO intake >50%) ADDITIONAL RECOMMENDATIONS: * Per SNF: HT=64" KE=[id number] (04/05/20) -> rec daily calibrated bedscale wt, monitor trend Possible wt loss of 68 lbs/29% in 13 months * W/ poor PO intake, add Glucerna TID w/ meals * Wound healing: Add MVI x 1, Vit C 500mg BID, ZnSO4 220mg QD x 10 days Woody (QD for now- increase to BID w/ good acceptance) added to tray * Monitor lytes, replete as needed (low k and mag) (3) Hemorrhagic shock (4) Acute CVA (cerebrovascular accident) (5) Septic shock (6) Anemia (7) Sepsis (8) Altered mental status (9) Atrial fibrillation with RVR (10) COVID-19 Assessment & Plan: ++ as per ID and pulm cxr noted (11) History of CVA (cerebrovascular accident) (12) Decubitus skin ulcer Assessment & Plan: Patient identified on admission to have a 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 apply therahoney to areas of slough. apply mositure barrier paste on the periwound. cover with optifoam dressing. change Q3D and PRN. Apply cavilon on both heels& malleoli. Cover each site with optifoam dressing. Change Q7D and PRN. Elian Ren Apr 18, 2020 20:59
[2020-04-18] MEDS: Miralax 17gm pkt ORAL SCH (21:27)
[2020-04-19] VITALS (12 sets, daily range): BP systolic 117–144; BP diastolic 6–86
[2020-04-19] MEDS: D5 1/2NS w/KCl 20mEq 1,000 ML IV SCH ×2 (00:57→14:59)
[2020-04-19] MEDS: NovoLOG Insulin Flexpen SUBQ SCH ×4 (06:00→18:00)
[2020-04-19 07:23] LABS: BASOPHILS % (AUTO) 0.2 % (0.0-2.0); EOSINOPHILS % (AUTO) 0.1 % (0.0-3.0); HEMATOCRIT 25.2 % (37.0-47.0); HEMOGLOBIN 8.8 G/DL (12.0-16.0); LYMPHOCYTES % (AUTO) 10.2 % (20.0-45.0); MEAN CORPUSCULAR VOLUME 85 FL (80-99); MONOCYTES % (AUTO) 6.2 % (1.0-10.0); NEUTROPHILS % (AUTO) 83.3 % (45.0-75.0); PLATELET COUNT 338 K/UL (150-450); RED BLOOD COUNT 2.98 M/UL (4.20-5.40); RED CELL DISTRIBUTION WIDTH 13.8 % (11.6-14.8); WHITE BLOOD COUNT 12.4 K/UL (4.8-10.8)
[2020-04-19 07:40] LABS: ANION GAP 8 mmol/L (5-15); BLOOD UREA NITROGEN 10 mg/dL (7-18); CALCIUM 8.5 MG/DL (8.5-10.1); CARBON DIOXIDE 25 MMOL/L (21-32); CHLORIDE 104 MMOL/L (98-107); CREATININE 0.4 MG/DL (0.55-1.30); POTASSIUM 3.9 MMOL/L (3.5-5.1); SODIUM 137 MMOL/L (136-145)
--- NOTE | 2020-04-19 07:58 | NUR ---
NURSE NOTES: RECEIVED PATIENT AND REPORT FROM GEORGIE RN IN BED. PATIENT IS AAO X1. NO S/S OF PAIN OR RESPIRATORY DISTRESS NOTED AT THIS TIME. PATIENT IS NPO AND PLANNED TO BE HAVING PROCEDURE- EGD WITH POSSIBLE BIOPSY TODAY WITH DR. BARTON. NOTED PATIENT HAS SESAY CATHETER 16F, DRAINING TO GRAVITY WITH BLOODY URINE, DR. AMAYA AWARE. PATIENT IS ON P200 MATTRESS, IV ON LAC 18G IS INTACT, PATENT WITH D51/2NS WITH 20MEQ KCL RUNNING AT 75CC/HR. NOTED PATIENT HAS SACRAL DTI, BILATERAL HEEL REDNESS, OPTIFOAM IS IN PLACE. NOTED PATIENT HAS RIGHT LOWER EXTREMITIES SWOLLEN, MD AWARE. BED IS IN LOWEST POSITION WITH BEDSIDE RAILS UP X3, BRAKES ENGAGED FOR SAFETY, CALL LIGHT IS WITHIN EASY REACH. WILL CONTINUE WITH THE PLAN OF CARE.
--- NOTE | 2020-04-19 07:59 | Urology Progress Note ---
Assessment/Plan Status: stable, unchanged Assessment/Plan: 1. Gross hematuria. 2. UTI. 3. Proteinuria. 4. Urinary retention. 5. Probable neurogenic bladder. 6. Probable cystitis. 7. Possible adrenal adenoma. 8. Acute kidney injury history, which is improved. 9. Sepsis history. monitor clinically mcmanus hand irrigated and do PRN will consider larger mcmanus or CBI if needed abx as ordered lovenox held for now monitor h/h renal fxn stable cysto at some point electively Subjective Allergies: Coded Allergies: No Known Allergies (Unverified , 03/11/19) Subjective all noted nursing staff hand irrigated mcmanus Objective Last 24 Hour Vital Signs Date Time Temp Pulse Resp B/P (MAP) Pulse Ox O2 Delivery O2 Flow Rate FiO2 04/19/20 04:00 95 04/19/20 04:00 98.4 97 20 139/85 (103) 95 04/19/20 00:00 98.1 98 20 133/78 (96) 99 04/19/20 00:00 105 04/18/20 21:00 Nasal Cannula 4.0 04/18/20 20:00 98.1 107 18 128/78 (95) 99 04/18/20 20:00 87 04/18/20 16:00 97.9 103 18 137/72 (93) 95 04/18/20 16:00 97 04/18/20 12:00 98.6 83 20 135/75 (95) 96 04/18/20 12:00 90 04/18/20 09:00 Nasal Cannula 4.0 04/18/20 08:00 98.0 91 18 140/80 (100) 95 04/18/20 08:00 79 Intake and Output 04/18/20 04/19/20 18:59 06:59 Output Total 400 ml 800 ml Balance -400 ml -800 ml Output Urine Total 400 ml 800 ml # Bowel Movements 1 Microbiology Date/Time Source Procedure Growth Status 04/12/20 19:30 Blood Blood Culture - Final NO GROWTH AFTER 5 DAYS Complete 04/09/20 08:00 Urine,Clean Catch Urine Culture - Final Enterococcus Faecium - Vre Complete 04/08/20 15:55 Rectum VRE Culture - Final Enterococcus Faecium - Vre Complete 04/08/20 15:55 Nasal Nares MRSA Culture - Final Staphylococcus Aureus - Mrsa Complete Current Medications Medications (Trade) Dose Ordered Sig/Jere Route PRN Reason Start Time Stop Time Status Last Admin Dose Admin Acetaminophen (Tylenol) 650 mg Q4H PRN ORAL fever 04/08/20 19:00 05/08/20 18:59 04/12/20 00:27 Ascorbic Acid (Vitamin C) 500 mg TWICE A DAY ORAL 04/14/20 18:00 05/14/20 17:59 04/18/20 18:22 Aspirin (ASA) 81 mg DAILY NG 04/18/20 18:45 06/02/20 18:44 04/18/20 18:43 Chlorhexidine Gluconate (Geno-Hex 2%) 1 applic DAILY@2000 TOPIC 04/08/20 20:00 07/07/20 19:59 04/18/20 20:47 Dexamethasone (Decadron) 6 mg DAILY ORAL 04/12/20 15:15 04/21/20 09:01 04/18/20 08:19 Dextrose (Dextrose 50%) 25 ml Q30M PRN IV Hypoglycemia 04/17/20 12:00 07/16/20 11:59 Dextrose (Dextrose 50%) 50 ml Q30M PRN IV Hypoglycemia 04/17/20 12:00 07/16/20 11:59 Dextrose/ Electrolytes 1,000 ml @ 75 mls/hr [id number] IV 04/08/20 22:30 05/08/20 22:29 04/19/20 00:57 Enoxaparin Sodium (Lovenox) 40 mg DAILY SUBQ 04/14/20 20:00 07/13/20 19:59 04/17/20 09:54 Insulin Aspart (NovoLOG) Q6H SUBQ 04/17/20 12:00 07/16/20 11:59 Linezolid (Zyvox) 600 mg EVERY 12 HOURS ORAL 04/12/20 15:00 04/20/20 14:59 04/18/20 21:27 Metoprolol Tartrate (Lopressor) 5 mg Q1H PRN IVP spb more than 120 04/08/20 19:00 07/07/20 18:59 Multivitamins (Multivitamins) 1 tab DAILY ORAL 04/15/20 09:00 05/15/20 08:59 04/18/20 08:19 Ondansetron HCl (Zofran) 4 mg Q6H PRN IVP Nausea & Vomiting 04/08/20 19:00 05/08/20 18:59 Pantoprazole (Protonix) 40 mg EVERY 12 HOURS IVP 04/10/20 21:00 05/10/20 20:59 04/18/20 21:27 Polyethylene Glycol (Miralax) 17 gm BEDTIME ORAL 04/09/20 21:00 05/09/20 20:59 04/18/20 21:27 Polyethylene Glycol (Miralax) 17 gm DAILYPRN PRN ORAL Constipation 04/08/20 19:00 05/08/20 18:59 Zinc Sulfate (Zinc Sulfate) 220 mg DAILY ORAL 04/15/20 09:00 04/25/20 08:59 04/18/20 08:19 Laboratory Tests 04/19/20 00:49: POC Whole Blood Glucose 110H 04/19/20 06:44: POC Whole Blood Glucose 98 04/19/20 06:57: White Blood Count 12.4H, Red Blood Count 2.98L, Hemoglobin 8.8L, Hematocrit 25.2L, Mean Corpuscular Volume 85, Mean Corpuscular Hemoglobin 29.5, Mean Corpuscular Hemoglobin Concent 34.9, Red Cell Distribution Width 13.8, Platelet Count 338, Mean Platelet Volume 4.9L, Neutrophils (%) (Auto) 83.3H, Lymphocytes (%) (Auto) 10.2L, Monocytes (%) (Auto) 6.2, Eosinophils (%) (Auto) 0.1, Basophils (%) (Auto) 0.2, Sodium Level 137, Potassium Level 3.9, Chloride Level 104, Carbon Dioxide Level 25, Anion Gap 8, Blood Urea Nitrogen 10, Creatinine 0.4L, Estimat Glomerular Filtration Rate > 60, Glucose Level 100, Calcium Level 8.5 Height (Feet): 5 Height (Inches): 5.00 Weight (Pounds): 201 Objective exam stable mcmanus indwelling urine blood-tinged/payam Bamshad,Bong Azevedo MD Apr 19, 2020 07:59
[2020-04-19] MEDS: Ascorbic Acid 500mg tab ORAL SCH ×2 (09:00→18:03)
[2020-04-19] MEDS: Enoxaparin 40mg Inj SUBQ SCH (09:00)
[2020-04-19] MEDS: Aspirin Baby 81mg NG SCH (09:00)
[2020-04-19] MEDS: Pantoprazole Inj IVP SCH ×2 (09:00→20:56)
[2020-04-19] MEDS: Zinc Sulfate 220mg ORAL SCH (09:00)
--- NOTE | 2020-04-19 09:18 | Nephrology Progress Note ---
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 Electrolytes and renal parameters stable. April 18: Labs reviewed. Electrolytes and renal parameters stable. April 17: Lab reviewed. Stable from renal standpoint of view April 16: Labs reviewed. Remains stable from renal standpoint of view. Continue per consultants. April 15: Labs reviewed. Electrolyte abnormalities addressed. Continue as is. April 14: Labs reviewed. Low phosphorus and low magnesium corrected. Continue per consultants. Blood pressure remains stable. April 13: Electrolytes within normal limit. Renal parameters within normal limit. Continue per consultants. April 12: Electrolyte abnormalities noted and addressed. Continue per consultants Magnesium IV supplement as needed Potassium IV supplement as needed Phosphorus IV supplement as needed Monitor electrolytes Monitor hemoglobin hematocrit IV Protonix Adjust IV fluid Antibiotics per consultants Subjective ROS Limited/Unobtainable: No Objective Objective Last 24 Hour Vital Signs Date Time Temp Pulse Resp B/P (MAP) Pulse Ox O2 Delivery O2 Flow Rate FiO2 04/19/20 04:00 95 04/19/20 04:00 98.4 97 20 139/85 (103) 95 04/19/20 00:00 98.1 98 20 133/78 (96) 99 04/19/20 00:00 105 04/18/20 21:00 Nasal Cannula 4.0 04/18/20 20:00 98.1 107 18 128/78 (95) 99 04/18/20 20:00 87 04/18/20 16:00 97.9 103 18 137/72 (93) 95 04/18/20 16:00 97 04/18/20 12:00 98.6 83 20 135/75 (95) 96 04/18/20 12:00 90 Intake and Output 04/18/20 04/19/20 19:00 07:00 Output Total 400 ml 800 ml Balance -400 ml -800 ml Output Urine Total 400 ml 800 ml # Bowel Movements 1 Laboratory Tests 04/19/20 00:49: POC Whole Blood Glucose 110H 04/19/20 06:44: POC Whole Blood Glucose 98 04/19/20 06:57: White Blood Count 12.4H, Red Blood Count 2.98L, Hemoglobin 8.8L, Hematocrit 2 5.2L, Mean Corpuscular Volume 85, Mean Corpuscular Hemoglobin 29.5, Mean Corpuscular Hemoglobin Concent 34.9, Red Cell Distribution Width 13.8, Platelet Count 338, Mean Platelet Volume 4.9L, Neutrophils (%) (Auto) 83.3H, Lymphocytes (%) (Auto) 10.2L, Monocytes (%) (Auto) 6.2, Eosinophils (%) (Auto) 0.1, Basoph ils (%) (Auto) 0.2, Sodium Level 137, Potassium Level 3.9, Chloride Level 104, Carbon Dioxide Level 25, Anion Gap 8, Blood Urea Nitrogen 10, Creatinine 0.4L, Estimat Glomerular Filtration Rate > 60, Glucose Level 100, Calcium Level 8.5 Height (Feet): 5 Height (Inches): 5.00 Weight (Pounds): 201 General Appearance: no apparent distress, lethargic Cardiovascular: tachycardia Respiratory/Chest: decreased breath sounds Abdomen: soft Objective No change Steven Edwards MD Apr 19, 2020 09:18
--- NOTE | 2020-04-19 10:24 | Pre-Procedure Note/Attestation ---
Pre-Procedure Note/Attestation Complete Prior to Procedure Planned Procedure: not applicable Procedure Narrative: egd/peg Indications for Procedure Pre-Operative Diagnosis: dysphagia Attestation I attest that I discussed the nature of the procedure; its benefits; risks and complications; and alternatives (and the risks and benefits of such alternatives), prior to the procedure, with the patient (or the patient's legal passenger service representative). I attest that, if there was a reasonable possibility of needing a blood transfu holli, the patient (or the patient's legal passenger service representative) was given the [facility] standardized written summary, pursuant to the Sanjay Alina Blood Safety Act ([place] Health and Safety Code # 1645, as amended). I attest that I re-evaluated the patient just prior to the surgery and that there has been no change in the patient's H&P, except as documented below: Nima Park MD Apr 19, 2020 10:24
--- NOTE | 2020-04-19 10:52 | Infectious Diseases Prog Note ---
Assessment/Plan Assessment: Septic Shock- SP COVID19 pneumonia- on 2l NC> hypoxic on ABG, now at 4L NC -04/12 CXR: Bilateral infiltrates, developing since 04/08/2020, likely on the basis of pneumonia. -04/08 CXR: Mild diffuse peribronchial thickening in the absence of airspace consolidation, which is nonspecific but can be seen with infectious/inflammatory airways disease in the appropriate clinical context. rapid covid pcr + UTI -04/09 ucx >100k VRE (E. faecium); S linezolid -04/08 u/a wbc tnct, nit neg, leuk +3; ucx <10k P, mirabilis (S Ceftriaxone, Zosyn), >100k gamma hemolytic strep Gram positive bacteremia- likely contaminant -04/08 Bcx 1/4 S. hominis, 2/4 S. auricularis ; 04/10 Bcx NGTD Low grade fever, SP No leukocytosis Vaginal bleeding -CT abd/p wo: Study limited due to lack of IV contrast. Pulmonary findings could represent multifocal pneumonia or aspiration.These findings could also represent viral pneumonia, although this is not highly specific pattern. Promin ent rectal stool burden with mild wall thickening could represent stercoral colitis in the proper context. Otherwise, diffuse large colonic stool burden could be a cause for pain. Left superior renal pole ill-defined mild hyperdensity could be a manifestation of chronic medical renal disease in the proper context. Consider outpatient CT adrenal glands to further evaluate indeterminate left adrenal 1.2 cm nodularity. Calcified fibroid uterus. Appendectomy. ROSA MARIA, SP AST elevation; improving inoperable endometrial adenocarcinoma sp brachytherapy 12/16/19 HTN CVA/TIA hx of DVT MDD HLD dysphagia Afib Dm2 chronic lacunar infarction w/ b/l ganglia and king radiata and L parietal lobe stroke hx of UTI [place] resident( [facility]) Plan: -Cont PO Zyvox #8 for both GPC bacteremia and VRE UTI -Cont dex 6mg daily - 04/17/20 SP remdesivir #5/5 -04/14 SP Cefepime #7/7 for Proteus UTI -04/12 SP IV Vancomycin #5 -f/u cx -Monitor CBC/CMP, temperatures -COVID19 isolation Thank you for this consultation. Will continue to follow along with you. Subjective Allergies: Coded Allergies: No Known Allergies (Unverified , 03/11/19) Afebrile Leukocytosis mild and persistent but improved Stable on 4L NC Objective Last 24 Hour Vital Signs Date Time Temp Pulse Resp B/P (MAP) Pulse Ox O2 Delivery O2 Flow Rate FiO2 04/19/20 09:00 Nasal Cannula 4.0 04/19/20 08:00 112 04/19/20 08:00 98.6 112 20 125/62 (83) 96 04/19/20 04:00 95 04/19/20 04:00 98.4 97 20 139/85 (103) 95 04/19/20 00:00 98.1 98 20 133/78 (96) 99 04/19/20 00:00 105 04/18/20 21:00 Nasal Cannula 4.0 04/18/20 20:00 98.1 107 18 128/78 (95) 99 04/18/20 20:00 87 04/18/20 16:00 97.9 103 18 137/72 (93) 95 04/18/20 16:00 97 04/18/20 12:00 98.6 83 20 135/75 (95) 96 04/18/20 12:00 90 Height (Feet): 5 Height (Inches): 5.00 Weight (Pounds): 201 GENERAL: NAD HEENT: NCAT, MMM, EOMI LUNGS: Equal rise and fall of chest B/L no accessory muscle use ABDOMEN: Soft, nondistended EXTREMITIES: No cyanosis, clubbing, or edema. Laboratory Tests Test 04/19/20 00:49 04/19/20 06:44 04/19/20 06:57 POC Whole Blood Glucose 110 MG/DL (74-106) H 98 MG/DL (74-106) White Blood Count 12.4 K/UL (4.8-10.8) H Red Blood Count 2.98 M/UL (4.20-5.40) L Hemoglobin 8.8 G/DL (12.0-16.0) L Hematocrit 25.2 % (37.0-47.0) L Mean Corpuscular Volume 85 FL (80-99) Mean Corpuscular Hemoglobin 29.5 PG (27.0-31.0) Mean Corpuscular Hemoglobin Concent 34.9 G/DL (32.0-36.0) Red Cell Distribution Width 13.8 % (11.6-14.8) Platelet Count 338 K/UL (150-450) Mean Platelet Volume 4.9 FL (6.5-10.1) L Neutrophils (%) (Auto) 83.3 % (45.0-75.0) H Lymphocytes (%) (Auto) 10.2 % (20.0-45.0) L Monocytes (%) (Auto) 6.2 % (1.0-10.0) Eosinophils (%) (Auto) 0.1 % (0.0-3.0) Basophils (%) (Auto) 0.2 % (0.0-2.0) Sodium Level 137 MMOL/L (136-145) Potassium Level 3.9 MMOL/L (3.5-5.1) Chloride Level 104 MMOL/L (98-107) Carbon Dioxide Level 25 MMOL/L (21-32) Anion Gap 8 mmol/L (5-15) Blood Urea Nitrogen 10 mg/dL (7-18) Creatinine 0.4 MG/DL (0.55-1.30) L Estimat Glomerular Filtration Rate > 60 mL/min (>60) Glucose Level 100 MG/DL (74-106) Calcium Level 8.5 MG/DL (8.5-10.1) Current Medications Medications (Trade) Dose Ordered Sig/Jere Route PRN Reason Start Time Stop Time Status Last Admin Dose Admin Acetaminophen (Tylenol) 650 mg Q4H PRN ORAL fever 04/08/20 19:00 05/08/20 18:59 04/12/20 00:27 Ascorbic Acid (Vitamin C) 500 mg TWICE A DAY ORAL 04/14/20 18:00 05/14/20 17:59 04/18/20 18:22 Aspirin (ASA) 81 mg DAILY NG 04/18/20 18:45 06/02/20 18:44 04/18/20 18:43 Chlorhexidine Gluconate (Geno-Hex 2%) 1 applic DAILY@1999 TOPIC 04/08/20 20:00 07/07/20 19:59 04/18/20 20:47 Dexamethasone (Decadron) 6 mg DAILY ORAL 04/12/20 15:15 04/21/20 09:01 04/18/20 08:19 Dextrose (Dextrose 50%) 25 ml Q30M PRN IV Hypoglycemia 04/17/20 12:00 07/16/20 11:59 Dextrose (Dextrose 50%) 50 ml Q30M PRN IV Hypoglycemia 04/17/20 12:00 07/16/20 11:59 Dextrose/ Electrolytes 1,000 ml @ 75 mls/hr [id number] IV 04/08/20 22:30 05/08/20 22:29 04/19/20 00:57 Enoxaparin Sodium (Lovenox) 40 mg DAILY SUBQ 04/14/20 20:00 07/13/20 19:59 04/17/20 09:54 Insulin Aspart (NovoLOG) Q6H SUBQ 04/17/20 12:00 07/16/20 11:59 Linezolid (Zyvox) 600 mg EVERY 12 HOURS ORAL 04/12/20 15:00 04/20/20 14:59 04/18/20 21:27 Metoprolol Tartrate (Lopressor) 5 mg Q1H PRN IVP spb more than 120 04/08/20 19:00 07/07/20 18:59 Multivitamins (Multivitamins) 1 tab DAILY ORAL 04/15/20 09:00 05/15/20 08:59 04/18/20 08:19 Ondansetron HCl (Zofran) 4 mg Q6H PRN IVP Nausea & Vomiting 04/08/20 19:00 05/08/20 18:59 Pantoprazole (Protonix) 40 mg EVERY 12 HOURS IVP 04/10/20 21:00 05/10/20 20:59 04/18/20 21:27 Polyethylene Glycol (Miralax) 17 gm BEDTIME ORAL 04/09/20 21:00 05/09/20 20:59 04/18/20 21:27 Polyethylene Glycol (Miralax) 17 gm DAILYPRN PRN ORAL Constipation 04/08/20 19:00 05/08/20 18:59 Zinc Sulfate (Zinc Sulfate) 220 mg DAILY ORAL 04/15/20 09:00 04/25/20 08:59 04/18/20 08:19 Prabhu Jacques MD Apr 19, 2020 10:52
--- NOTE | 2020-04-19 12:37 | Surgery Progress Note ---
Surgery Progress Note Subjective Additional Comments no acute events wbc improved comfortable no n/v/f/c mcmanus being irrigated Objective Last 24 Hour Vital Signs Date Time Temp Pulse Resp B/P (MAP) Pulse Ox O2 Delivery O2 Flow Rate FiO2 04/19/20 12:00 113 04/19/20 12:00 98.2 115 18 132/68 (89) 97 04/19/20 09:00 Nasal Cannula 4.0 04/19/20 08:00 112 04/19/20 08:00 98.6 112 20 125/62 (83) 96 04/19/20 04:00 95 04/19/20 04:00 98.4 97 20 139/85 (103) 95 04/19/20 00:00 98.1 98 20 133/78 (96) 99 04/19/20 00:00 105 04/18/20 21:00 Nasal Cannula 4.0 04/18/20 20:00 98.1 107 18 128/78 (95) 99 04/18/20 20:00 87 04/18/20 16:00 97.9 103 18 137/72 (93) 95 04/18/20 16:00 97 I&O Intake and Output 04/18/20 04/19/20 19:00 07:00 Output Total 400 ml 800 ml Balance -400 ml -800 ml Output Urine Total 400 ml 800 ml # Bowel Movements 1 Dressing: other Wound: other Cardiovascular: RSR Respiratory: decreased breath sounds Abdomen: soft, non-tender, present bowel sounds Extremities: no tenderness, no cyanosis Laboratory Tests Test 04/19/20 00:49 04/19/20 06:44 04/19/20 06:57 POC Whole Blood Glucose 110 MG/DL (74-106) H 98 MG/DL (74-106) White Blood Count 12.4 K/UL (4.8-10.8) H Red Blood Count 2.98 M/UL (4.20-5.40) L Hemoglobin 8.8 G/DL (12.0-16.0) L Hematocrit 25.2 % (37.0-47.0) L Mean Corpuscular Volume 85 FL (80-99) Mean Corpuscular Hemoglobin 29.5 PG (27.0-31.0) Mean Corpuscular Hemoglobin Concent 34.9 G/DL (32.0-36.0) Red Cell Distribution Width 13.8 % (11.6-14.8) Platelet Count 338 K/UL (150-450) Mean Platelet Volume 4.9 FL (6.5-10.1) L Neutrophils (%) (Auto) 83.3 % (45.0-75.0) H Lymphocytes (%) (Auto) 10.2 % (20.0-45.0) L Monocytes (%) (Auto) 6.2 % (1.0-10.0) Eosinophils (%) (Auto) 0.1 % (0.0-3.0) Basophils (%) (Auto) 0.2 % (0.0-2.0) Sodium Level 137 MMOL/L (136-145) Potassium Level 3.9 MMOL/L (3.5-5.1) Chloride Level 104 MMOL/L (98-107) Carbon Dioxide Level 25 MMOL/L (21-32) Anion Gap 8 mmol/L (5-15) Blood Urea Nitrogen 10 mg/dL (7-18) Creatinine 0.4 MG/DL (0.55-1.30) L Estimat Glomerular Filtration Rate > 60 mL/min (>60) Glucose Level 100 MG/DL (74-106) Calcium Level 8.5 MG/DL (8.5-10.1) Plan Problems: (1) Hematuria (2) Rectal bleeding Assessment & Plan: 64-year-old female identified to have rectal bleeding on admission. GI aware surgery aware no active bleeding at this time hemoglobin noted. Transfuse PRBC as needed. Pending scope consideration. passed swallow no bleeding on diet may need peg as per GI cont diet urology input appreciated mcmanus being irrigated supplements added for wound care DAILY ESTIMATED NEEDS: Needs based on Obesity, cardiac/ 67.6kg abw 22-27 kcals/kg [id number] total kcals 1-1.5 g protein/kg 68-101 g total protein 25-30 mL/kg 1913-1404 total fluid mLs NUTRITION DIAGNOSIS: * Swallowing difficulty R/T dysphagia, h/o CVA, clinical condition as evidenced by seen by DAG SPRAYER w/ rec for pureed moist texture w/ thin liquids. 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 CURRENT DIET:[facility] MED, pureed moist w/ thin liquids PO DIET RECOMMENDATIONS: Liberalized REGULAR w/ poor PO ([facility] MED+LOW NA w/ PO intake >50%) ADDITIONAL RECOMMENDATIONS: * Per SNF: HT=64" [id number] (04/05/20) -> rec daily calibrated bedscale wt, monitor trend Possible wt loss of 68 lbs/29% in 13 months * W/ poor PO intake, add Glucerna TID w/ meals * Wound healing: Add MVI x 1, Vit C 500mg BID, ZnSO4 220mg QD x 10 days Woody (QD for now- increase to BID w/ good acceptance) added to tray * Monitor lytes, replete as needed (low k and mag) (3) Hemorrhagic shock (4) Acute CVA (cerebrovascular accident) (5) Septic shock (6) Anemia (7) Sepsis (8) Altered mental status (9) Atrial fibrillation with RVR (10) COVID-19 Assessment & Plan: ++ as per ID and pulm cxr noted (11) History of CVA (cerebrovascular accident) (12) Decubitus skin ulcer Assessment & Plan: Patient identified on admission to have a 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 apply therahoney to areas of slough. apply mositure barrier paste on the periwound. cover with optifoam dressing. change Q3D and PRN. Apply cavilon on both heels& malleoli. Cover each site with optifoam dressing. Change Q7D and PRN. Elian Ren Apr 19, 2020 12:37
--- NOTE | 2020-04-19 12:54 | Cardiology Progress Note ---
Assessment/Plan Assessment/Plan hs of hypertension, diabetes previous CVA, COVID infection Sinus tachy (incorrect diagnosis of afib with tachycardia) hypotension, a/ hemorraghic shock vaginal bleeding. anemia s/p prbc tx pt in covid isolation exam deferred tele personally reviewed last hsor svt 04/17 no fever abx supportive care keep on tele monitoring bp seem ok has black stool hematuria addressed by dr amaya remains on lmwh for dvt ppx still Subjective Subjective covid pt in soloalion PATIENT IS AAO X1. NO S/S OF PAIN OR RESPIRATORY DISTRESS NOTED AT THIS TIME. PATIENT IS NPO AND PLANNED TO BE HAVING PROCEDURE- EGD WITH POSSIBLE BIOPSY TODAY WITH DR. BARTON. NOTED PATIENT HAS SESAY CATHETER 16F, DRAINING TO GRAVITY WITH BLOODY URINE, DR. AMAYA AWARE. Objective Last 24 Hour Vital Signs Date Time Temp Pulse Resp B/P (MAP) Pulse Ox O2 Delivery O2 Flow Rate FiO2 04/19/20 12:00 113 04/19/20 12:00 98.2 115 18 132/68 (89) 97 04/19/20 09:00 Nasal Cannula 4.0 04/19/20 08:00 112 04/19/20 08:00 98.6 112 20 125/62 (83) 96 04/19/20 04:00 95 04/19/20 04:00 98.4 97 20 139/85 (103) 95 04/19/20 00:00 98.1 98 20 133/78 (96) 99 04/19/20 00:00 105 04/18/20 21:00 Nasal Cannula 4.0 04/18/20 20:00 98.1 107 18 128/78 (95) 99 04/18/20 20:00 87 04/18/20 16:00 97.9 103 18 137/72 (93) 95 04/18/20 16:00 97 Intake and Output 04/18/20 04/19/20 19:00 07:00 Output Total 400 ml 800 ml Balance -400 ml -800 ml Output Urine Total 400 ml 800 ml # Bowel Movements 1 Laboratory Tests Test 04/19/20 00:49 04/19/20 06:44 04/19/20 06:57 POC Whole Blood Glucose 110 MG/DL (74-106) H 98 MG/DL (74-106) White Blood Count 12.4 K/UL (4.8-10.8) H Red Blood Count 2.98 M/UL (4.20-5.40) L Hemoglobin 8.8 G/DL (12.0-16.0) L Hematocrit 25.2 % (37.0-47.0) L Mean Corpuscular Volume 85 FL (80-99) Mean Corpuscular Hemoglobin 29.5 PG (27.0-31.0) Mean Corpuscular Hemoglobin Concent 34.9 G/DL (32.0-36.0) Red Cell Distribution Width 13.8 % (11.6-14.8) Platelet Count 338 K/UL (150-450) Mean Platelet Volume 4.9 FL (6.5-10.1) L Neutrophils (%) (Auto) 83.3 % (45.0-75.0) H Lymphocytes (%) (Auto) 10.2 % (20.0-45.0) L Monocytes (%) (Auto) 6.2 % (1.0-10.0) Eosinophils (%) (Auto) 0.1 % (0.0-3.0) Basophils (%) (Auto) 0.2 % (0.0-2.0) Sodium Level 137 MMOL/L (136-145) Potassium Level 3.9 MMOL/L (3.5-5.1) Chloride Level 104 MMOL/L (98-107) Carbon Dioxide Level 25 MMOL/L (21-32) Anion Gap 8 mmol/L (5-15) Blood Urea Nitrogen 10 mg/dL (7-18) Creatinine 0.4 MG/DL (0.55-1.30) L Estimat Glomerular Filtration Rate > 60 mL/min (>60) Glucose Level 100 MG/DL (74-106) Calcium Level 8.5 MG/DL (8.5-10.1) Objective exam deferred as in isolation with active covid infection Wale Wu MD Apr 19, 2020 12:54
[2020-04-19] MEDS ORDERED: fentaNYL 100 mcg/2 mL IV ONE (13:00)
[2020-04-19] MEDS ORDERED: Midazolam 2mg/2ml Inj ONE (13:00)
[2020-04-19] MEDS ORDERED: NS 500ML IVPB ONE (13:00)
--- NOTE | 2020-04-19 13:41 | Endoscopy Procedure Note ---
Endoscopy Procedure Note General Indication for Procedure: dysphagia Procedures Performed: PEG Operative Findings/Diagnosis: same Specimen: none Pt Tolerated Procedure Well: Yes Estimated Blood Loss: none Anesthesia Anesthesiologist: mary Anesthesia: MAC Inserted Devices Implant(s) used?: No GI Core Measures 50 yrs or older w/o bx or poly: Not Applicable 10yrs. F/U recommended: Not Applicable Nima Park MD Apr 19, 2020 13:41
--- NOTE | 2020-04-19 13:47 | Pulmonology Progress Note ---
Subjective ROS Limited/Unobtainable: Yes Constitutional: Reports: no symptoms, fatigue HEENT: Repors: no symptoms Allergies: Coded Allergies: No Known Allergies (Unverified , 03/11/19) Objective Last 24 Hour Vital Signs Date Time Temp Pulse Resp B/P (MAP) Pulse Ox O2 Delivery O2 Flow Rate FiO2 04/19/20 12:00 113 04/19/20 12:00 98.2 115 18 132/68 (89) 97 04/19/20 09:00 Nasal Cannula 4.0 04/19/20 08:00 112 04/19/20 08:00 98.6 112 20 125/62 (83) 96 04/19/20 04:00 95 04/19/20 04:00 98.4 97 20 139/85 (103) 95 04/19/20 00:00 98.1 98 20 133/78 (96) 99 04/19/20 00:00 105 04/18/20 21:00 Nasal Cannula 4.0 04/18/20 20:00 98.1 107 18 128/78 (95) 99 04/18/20 20:00 87 04/18/20 16:00 97.9 103 18 137/72 (93) 95 04/18/20 16:00 97 Intake and Output 04/18/20 04/19/20 18:59 06:59 Output Total 400 ml 800 ml Balance -400 ml -800 ml Output Urine Total 400 ml 800 ml # Bowel Movements 1 General Appearance: WD/WN HEENT: normocephalic, atraumatic Respiratory: chest wall non-tender, lungs clear Breasts: no masses Cardiovascular: normal peripheral pulses Abdomen: normal bowel sounds, soft, non tender Extremities: no cyanosis 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, alert Lymphatic: no neck adenopathy Laboratory Tests 04/19/20 00:49: POC Whole Blood Glucose 110H 04/19/20 06:44: POC Whole Blood Glucose 98 04/19/20 06:57: White Blood Count 12.4H, Red Blood Count 2.98L, Hemoglobin 8.8L, Hematocrit 25.2L, Mean Corpuscular Volume 85, Mean Corpuscular Hemoglobin 29.5, Mean Corpuscular Hemoglobin Concent 34.9, Red Cell Distribution Width 13.8, Platelet Count 338, Mean Platelet Volume 4.9L, Neutrophils (%) (Auto) 83.3H, Lymphocytes (%) (Auto) 10.2L, Monocytes (%) (Auto) 6.2, Eosinophils (%) (Auto) 0.1, Basophils (%) (Auto) 0.2, Sodium Level 137, Potassium Level 3.9, Chloride Level 104, Carbon Dioxide Level 25, Anion Gap 8, Blood Urea Nitrogen 10, Creatinine 0.4L, Estimat Glomerular Filtration Rate > 60, Glucose Level 100, Calcium Level 8.5 Current Medications Medications (Trade) Dose Ordered Sig/Jere Route PRN Reason Start Time Stop Time Status Last Admin Dose Admin Acetaminophen (Tylenol) 650 mg Q4H PRN ORAL fever 04/08/20 19:00 05/08/20 18:59 04/12/20 00:27 Ascorbic Acid (Vitamin C) 500 mg TWICE A DAY ORAL 04/14/20 18:00 05/14/20 17:59 04/18/20 18:22 Aspirin (ASA) 81 mg DAILY NG 04/18/20 18:45 06/02/20 18:44 04/18/20 18:43 Chlorhexidine Gluconate (Geno-Hex 2%) 1 applic DAILY@2000 TOPIC 04/08/20 20:00 07/07/20 19:59 04/18/20 20:47 Dexamethasone (Decadron) 6 mg DAILY ORAL 04/12/20 15:15 04/21/20 09:01 04/18/20 08:19 Dextrose (Dextrose 50%) 25 ml Q30M PRN IV Hypoglycemia 04/17/20 12:00 07/16/20 11:59 Dextrose (Dextrose 50%) 50 ml Q30M PRN IV Hypoglycemia 04/17/20 12:00 07/16/20 11:59 Dextrose/ Electrolytes 1,000 ml @ 75 mls/hr [id number] IV 04/08/20 22:30 05/08/20 22:29 04/19/20 00:57 Enoxaparin Sodium (Lovenox) 40 mg DAILY SUBQ 04/14/20 20:00 07/13/20 19:59 04/17/20 09:54 Insulin Aspart (NovoLOG) Q6H SUBQ 04/17/20 12:00 07/16/20 11:59 Linezolid (Zyvox) 600 mg EVERY 12 HOURS ORAL 04/12/20 15:00 04/20/20 14:59 04/18/20 21:27 Metoprolol Tartrate (Lopressor) 5 mg Q1H PRN IVP spb more than 120 04/08/20 19:00 07/07/20 18:59 Multivitamins (Multivitamins) 1 tab DAILY ORAL 04/15/20 09:00 05/15/20 08:59 04/18/20 08:19 Ondansetron HCl (Zofran) 4 mg Q6H PRN IVP Nausea & Vomiting 04/08/20 19:00 05/08/20 18:59 Pantoprazole (Protonix) 40 mg EVERY 12 HOURS IVP 04/10/20 21:00 05/10/20 20:59 04/18/20 21:27 Polyethylene Glycol (Miralax) 17 gm BEDTIME ORAL 04/09/20 21:00 05/09/20 20:59 04/18/20 21:27 Polyethylene Glycol (Miralax) 17 gm DAILYPRN PRN ORAL Constipation 04/08/20 19:00 05/08/20 18:59 Zinc Sulfate (Zinc Sulfate) 220 mg DAILY ORAL 04/15/20 09:00 04/25/20 08:59 04/18/20 08:19 Assessment/Plan Problems: (1) Hemorrhagic shock (2) Sepsis (3) Bacteremia (4) History of CVA (cerebrovascular accident) (5) Rectal bleeding (6) Hematuria Assessment/Plan entire right leg is swollen. US of leg pending, Pt can't be on anticoagulants b/o hematuria, will order IVC filter. had episodes of vomitin ng tube is vernon confused Neuro evaluation requested f/u ID recommendations check electrolytes GI note appreciated continue Decadron dvt prophylaxis. Marina Buitrago MD Apr 19, 2020 13:47
--- NOTE | 2020-04-19 13:51 | NUR ---
NURSE NOTES: PEG PLACEMENT PROCEDURE DONE AND COMPLETED BY DR. BARTON. PATIENT IS RESPONSIVE, AOO X 1, ON VERBAL COMMUNICATION. NEW ORDERS RECEIVED AND CARRIED OUT, NO BLEEDING IN THE PROCEDURE SITE. NG-TUBE REMOVED BY MD. PATIENT IS STABLE AND WILL CONTINUE TO MONITOR.
--- NOTE | 2020-04-19 14:01 | NUR ---
CASE MANAGEMENT: REVIEW SI: COVID-19 . PNA . RECTAL BLEEDING . HEMATURIA T 98.1 HR 112 RR 20 BP 125/62 SAT 95% NC/L4 WBC 12.4 H/H 8.8/25.2 CR 0.4 IS: ZYVOX PO Q12HR DECADRON PO QD PROTONIX IV Q12HR D5 1/2 NS w/KCl 20MEQ Q24HR G-J TUBE PLACEMENT TODAY TELEMETRY UNIT STATUS DCP: PATIENT IS FROM [facility]
--- NOTE | 2020-04-19 14:01 | Anethesia Preoperative Eval ---
Anesthesia Pre-op PMH/ROS General Date of Evaluation: Apr 19, 2020 Time of Evaluation: 13:10 Anesthesiologist: Katherine ASA Score: ASA 4 Mallampati Score Class I : Soft palate, uvula, fauces, pillars visible Class II: Soft palate, uvula, fauces visible Class III: Soft palate, base of uvula visible Class IV: Only hard plate visible Mallampati Classification: Class III Surgeon: Vivian Diagnosis: Dysphagia Surgical Procedure: EGD PEG placement Anesthesia History: none Family History: no anesthesia problems Allergies: Coded Allergies: No Known Allergies (Unverified , 03/11/19) Medications: see eMAR Patient NPO?: Yes Past Medical History Cardiovascular: Reports: HTN, arrhythmia - Afib with FVR; Denies: CAD, MT, valve dz, other Pulmonary: Reports: other - covid +; Denies: asthma, COPD, DALE Gastrointestinal/Genitourinary: Reports: GERD, other - dysphagia; Denies: CRI, ESRD Neurologic/Psychiatric: Reports: dementia, CVA; Denies: depression/anxiety, TIA, other Endocrine: Reports: DM, hypothyroidism; Denies: steroids, other HEENT: Denies: cataract (L), cataract (R), glaucoma, [place] (L), [place] (R), other Hematology/Immune: Reports: anemia; Denies: DVT, bleeding disorder, other Musculoskeletal/Integumentary: Reports: other - chronic wounds; Denies: OA, RA, DJD, DDD, edema Other: obesity PMH Narrative: as above PSxH Narrative: see H&P Anesthesia Pre-op Phys. Exam Physician Exam Last Vital Signs Date Time Temp Pulse Resp B/P (MAP) Pulse Ox O2 Delivery O2 Flow Rate FiO2 04/19/20 12:00 113 04/19/20 12:00 98.2 18 132/68 (89) 97 04/19/20 09:00 Nasal Cannula 4.0 04/14/20 19:42 28 Constitutional: NAD Neurologic: other - unable to obtaine Cardiovascular: RRR Respiratory: other - diminished breath sounds Gastrointestinal: other - obesity Airway Exam Mallampati Score: Class III MO: limited Neck: stiff ROM: limited Teeth: missing Dentures: no upper, no lower Anesthesia Pre-op A/P Labs Hematology Test 04/19/20 06:57 White Blood Count 12.4 K/UL (4.8-10.8) H Red Blood Count 2.98 M/UL (4.20-5.40) L Hemoglobin 8.8 G/DL (12.0-16.0) L Hematocrit 25.2 % (37.0-47.0) L Mean Corpuscular Volume 85 FL (80-99) Mean Corpuscular Hemoglobin 29.5 PG (27.0-31.0) Mean Corpuscular Hemoglobin Concent 34.9 G/DL (32.0-36.0) Red Cell Distribution Width 13.8 % (11.6-14.8) Platelet Count 338 K/UL (150-450) Mean Platelet Volume 4.9 FL (6.5-10.1) L Neutrophils (%) (Auto) 83.3 % (45.0-75.0) H Lymphocytes (%) (Auto) 10.2 % (20.0-45.0) L Monocytes (%) (Auto) 6.2 % (1.0-10.0) Eosinophils (%) (Auto) 0.1 % (0.0-3.0) Basophils (%) (Auto) 0.2 % (0.0-2.0) Chemistry Test 04/19/20 00:49 04/19/20 06:44 04/19/20 06:57 POC Whole Blood Glucose 110 MG/DL (74-106) H 98 MG/DL (74-106) Sodium Level 137 MMOL/L (136-145) Potassium Level 3.9 MMOL/L (3.5-5.1) Chloride Level 104 MMOL/L (98-107) Carbon Dioxide Level 25 MMOL/L (21-32) Anion Gap 8 mmol/L (5-15) Blood Urea Nitrogen 10 mg/dL (7-18) Creatinine 0.4 MG/DL (0.55-1.30) L Estimat Glomerular Filtration Rate > 60 mL/min (>60) Glucose Level 100 MG/DL (74-106) Calcium Level 8.5 MG/DL (8.5-10.1) Risk Assessment & Plan Assessment: ASA 4 Plan: MAC Status Change Before Surgery: No Pre-Antibiotics Drug: as scheduled Valdo Murphy MD Apr 19, 2020 14:01
--- NOTE | 2020-04-19 14:03 | Immediate Post-Op Evaluation ---
Immediate Post-Op Evalulation Immediate Post-Op Evalulation Procedure: EGD PEG tube placement Date of Evaluation: Apr 19, 2020 Time of Evaluation: 13:46 IV Fluids: 100 Blood Products: none Estimated Blood Loss: min Urinary Output: none Blood Pressure Systolic: 128 Blood Pressure Diastolic: 72 Pulse Rate: 98 Respiratory Rate: 22 O2 Sat by Pulse Oximetry: 99 Temperature (Fahrenheit): 97.6 Pain Score (1-10): 1 Nausea: No Vomiting: No Complications none Patient Status: reacts, patent, none Hydration Status: adequate Vlado Murphy MD Apr 19, 2020 14:03
--- NOTE | 2020-04-19 14:04 | 48 Hour Post Anesthesia Eval ---
Post Anesthesia Evaluation Procedure: EGD PEG tube placement Date of Evaluation: Apr 19, 2020 Time of Evaluation: 14:03 Blood Pressure Systolic: 132 0: 76 Pulse Rate: 89 Respiratory Rate: 22 Temperature (Fahrenheit): 97.8 O2 Sat by Pulse Oximetry: 98 Airway: patent Nausea: No Vomiting: No Pain Intensity: 1 Hydration Status: adequate Cardiopulmonary Status: stable Mental Status/LOC: patient returned to baseline Follow-up Care/Observations: n/a Post-Anesthesia Complications: none Follow-up care needed: N/A Valdo Murphy MD Apr 19, 2020 14:04
--- NOTE | 2020-04-19 16:00 | Procedure Note ---
DATE OF PROCEDURE: 04/19/2020 SURGEON: Nima Park MD PROCEDURE: Upper endoscopy with PEG placement. ANESTHESIA: Per Dr. Murphy. INSTRUMENT: Olympus adult flexible upper endoscope. INDICATION: Dysphagia. REASON FOR PROCEDURE: The procedure, risks, benefits, and possible consequences, including hemorrhage, aspiration, perforation and infection, and alternative treatments, were explained to the patient/legal guardian by Dr. Nima Park and the patient/legal guardian understood and accepted these risks. DESCRIPTION OF PROCEDURE: After informed consent was obtained and patient was adequately sedated, Olympus upper endoscope was advanced from mouth into the second portion of the duodenum and retroflexion was performed in the stomach. Then under endoscopic guidance under sterile condition, a 20-Slovenian pull type of G-tube was successfully placed in the epigastric area. The distance from the tip of the tube to skin was about 2.5 cm in size. Patient tolerated the procedure very well without any complication. SUMMARY OF FINDING: Status post successful PEG placement RECOMMENDATIONS: 1. Abdominal binder. 2. Elevate the head of the bed at all times. 3. G-tube flush. 4. G-tube care. 5. Start tube feeding later today. Nima Park M.D. DR: PETER JOB#: [id number] CC:
--- NOTE | 2020-04-19 16:55 | NUR ---
NURSE NOTES: DR ROMERO CALLED TO INFORM OF PATIENT'S RESULT - POSITIVE FOR DVT ON THE RIGHT LOWER EXTREMITIES. CHARGE NURSE-FE IS AWARE AND HAS ALREADY NOTIFIED DR FIGUEROA. AWAITING REPLY. WILL CONTINUE TO MONITOR.
--- NOTE | 2020-04-19 17:03 | Diagnostic Imaging Report ---
Indication:Leg pain and swelling Technique: Grayscale and duplex Doppler imaging of the veins in both lower extremities performed in real time utilizing compression and augmentation. Comparison: None Findings: Duplex Doppler interrogation of the veins in the left lower extremity is performed from the common femoral vein to the popliteal vein. Normal venous compressibility demonstrated throughout. No thrombus identified. Waveform analysis shows good respiratory phasicity and augmentation. There is occlusive thrombosis extending from the right common femoral vein through to the right popliteal vein. IMPRESSION: Occlusive deep venous thrombosis extending from the right common femoral vein to the right popliteal vein. Findings reported to treating nurse Zak at 1650 on 04/19/2020
--- NOTE | 2020-04-19 17:12 | Internal Med Progress Note ---
Subjective Date of Service: Apr 19, 2020 Physician Name KatherineTariq Attending Physician Dewayne Mendoza MD Current Medications Medications (Trade) Dose Ordered Sig/Jere Route PRN Reason Start Time Stop Time Status Last Admin Dose Admin Acetaminophen (Tylenol) 650 mg Q4H PRN ORAL fever 04/08/20 19:00 05/08/20 18:59 04/12/20 00:27 Ascorbic Acid (Vitamin C) 500 mg TWICE A DAY ORAL 04/14/20 18:00 05/14/20 17:59 04/18/20 18:22 Aspirin (ASA) 81 mg DAILY NG 04/18/20 18:45 06/02/20 18:44 04/18/20 18:43 Chlorhexidine Gluconate (Egno-Hex 2%) 1 applic DAILY@1999 TOPIC 04/08/20 20:00 07/07/20 19:59 04/18/20 20:47 Dexamethasone (Decadron) 6 mg DAILY ORAL 04/12/20 15:15 04/21/20 09:01 04/18/20 08:19 Dextrose (Dextrose 50%) 25 ml Q30M PRN IV Hypoglycemia 04/17/20 12:00 07/16/20 11:59 Dextrose (Dextrose 50%) 50 ml Q30M PRN IV Hypoglycemia 04/17/20 12:00 07/16/20 11:59 Dextrose/ Electrolytes 1,000 ml @ 75 mls/hr [id number] IV 04/08/20 22:30 05/08/20 22:29 04/19/20 14:59 Enoxaparin Sodium (Lovenox) 40 mg DAILY SUBQ 04/14/20 20:00 07/13/20 19:59 04/17/20 09:54 Insulin Aspart (NovoLOG) Q6H SUBQ 04/17/20 12:00 07/16/20 11:59 Linezolid (Zyvox) 600 mg EVERY 12 HOURS ORAL 04/12/20 15:00 04/20/20 14:59 04/18/20 21:27 Metoprolol Tartrate (Lopressor) 5 mg Q1H PRN IVP spb more than 120 04/08/20 19:00 07/07/20 18:59 Multivitamins (Multivitamins) 1 tab DAILY ORAL 04/15/20 09:00 05/15/20 08:59 04/18/20 08:19 Ondansetron HCl (Zofran) 4 mg Q6H PRN IVP Nausea & Vomiting 04/08/20 19:00 05/08/20 18:59 Pantoprazole (Protonix) 40 mg EVERY 12 HOURS IVP 04/10/20 21:00 05/10/20 20:59 04/18/20 21:27 Polyethylene Glycol (Miralax) 17 gm BEDTIME ORAL 04/09/20 21:00 05/09/20 20:59 04/18/20 21:27 Polyethylene Glycol (Miralax) 17 gm DAILYPRN PRN ORAL Constipation 04/08/20 19:00 05/08/20 18:59 Zinc Sulfate (Zinc Sulfate) 220 mg DAILY ORAL 04/15/20 09:00 04/25/20 08:59 04/18/20 08:19 Allergies: Coded Allergies: No Known Allergies (Unverified , 03/11/19) ROS Limited/Unobtainable: Yes Subjective 64 YO F with inoperable uterine cancer admitted with tachycardia. Now atrial fibrillation with rapid ventricular rate. Also COVID 19 positive. Cover for Int Med-DR Mendoza Objective Last Vital Signs Date Time Temp Pulse Resp B/P (MAP) Pulse Ox O2 Delivery O2 Flow Rate FiO2 04/19/20 14:30 98.1 104 20 122/72 (89) 100 04/19/20 14:00 Nasal Cannula 2 04/14/20 19:42 28 Laboratory Tests Test 04/19/20 00:49 04/19/20 06:44 04/19/20 06:57 04/19/20 11:33 POC Whole Blood Glucose 110 MG/DL (74-106) H 98 MG/DL (74-106) 104 MG/DL (74-106) White Blood Count 12.4 K/UL (4.8-10.8) H Red Blood Count 2.98 M/UL (4.20-5.40) L Hemoglobin 8.8 G/DL (12.0-16.0) L Hematocrit 25.2 % (37.0-47.0) L Mean Corpuscular Volume 85 FL (80-99) Mean Corpuscular Hemoglobin 29.5 PG (27.0-31.0) Mean Corpuscular Hemoglobin Concent 34.9 G/DL (32.0-36.0) Red Cell Distribution Width 13.8 % (11.6-14.8) Platelet Count 338 K/UL (150-450) Mean Platelet Volume 4.9 FL (6.5-10.1) L Neutrophils (%) (Auto) 83.3 % (45.0-75.0) H Lymphocytes (%) (Auto) 10.2 % (20.0-45.0) L Monocytes (%) (Auto) 6.2 % (1.0-10.0) Eosinophils (%) (Auto) 0.1 % (0.0-3.0) Basophils (%) (Auto) 0.2 % (0.0-2.0) Sodium Level 137 MMOL/L (136-145) Potassium Level 3.9 MMOL/L (3.5-5.1) Chloride Level 104 MMOL/L (98-107) Carbon Dioxide Level 25 MMOL/L (21-32) Anion Gap 8 mmol/L (5-15) Blood Urea Nitrogen 10 mg/dL (7-18) Creatinine 0.4 MG/DL (0.55-1.30) L Estimat Glomerular Filtration Rate > 60 mL/min (>60) Glucose Level 100 MG/DL (74-106) Calcium Level 8.5 MG/DL (8.5-10.1) Test 04/19/20 16:47 POC Whole Blood Glucose 103 MG/DL (74-106) Intake and Output 0 04/18/20 04/19/20 18:59 06:59 Output Total 400 ml 800 ml Balance -400 ml -800 ml Output Urine Total 400 ml 800 ml # Bowel Movements 1 Objective PHYSICAL EXAMINATION: GENERAL: The patient awake, responsive, however altered and confused. The patient appears to be paler and chronically-ill appearing. HEAD AND NECK: Pupils are equal and reactive to light. Extraocular movements are intact. Neck was supple. No JVD. LUNGS: Bilateral air entry. Decreased air in the bases. HEART: S1, S2. Tachycardic, irregular. No murmur or gallop was appreciated. ABDOMEN: Soft, nondistended. Tenderness on the lower abdominal area. Mildly obese. EXTREMITIES: No cyanosis, clubbing, or edema. GENITOURINARY: The patient noted to have Lowe catheter with dark red urine collection in a Lowe catheter. NEUROLOGIC: Cranial nerves II through XII grossly intact. The patient moving all extremities equally. Sensory is intact. Gait was not able to assess due to the patient's status. RECTAL: Refused and deferred. PSYCHIATRIC: Mood and affect, unable to obtain due to the patient's status. Assessment/Plan Assessment/Plan ASSESSMENT: 1. COVID-19 pneumonia. 2. Altered mental status, most likely secondary to toxic metabolic encephalopathy. 3. Atrial fibrillation with rapid ventricular rate. 4. Anemia most likely secondary to acute blood loss. 5. Sepsis secondary to urinary tract infection as well as pneumonia. 6. Vaginal bleeding. 7. UTI=VRE 8. History of diabetes type 2. 9. Inoperable endometrial adenocarcinoma, status post brachytherapy. 10. Hypertension. 11. History of lacunar infarction. PLAN: 1. Telemetry 2. Dr. Buitrago=Pulmonary/Critical Care 3. Dr. Wale Wu = Cardiology. 4. antibiotic=linezolid; S/P vancomycin and cefepime. 5. Admit to droplet isolation [facility]-19 room. 6. Code status =Full Code. 7. DVT prophylaxis SCD. 8. S/P transfusion 2 units of packed RBC. 9. ID=Dr Gautam 10. Continue Tariq Rose MD Apr 19, 2020 17:12
--- NOTE | 2020-04-19 17:12 | NUR ---
NURSE NOTES: DR FIGUEROA AWARE OF POSITIVE DVT RT LEG AND ACCORDING TO HIM HE WILL ORDER IVC FILTER.
--- NOTE | 2020-04-19 18:09 | NUR ---
NURSE NOTES: DR FIGUEROA WILL ORDER IVC FILTER.
--- NOTE | 2020-04-19 19:06 | NUR ---
NURSE HAND-OFF REPORT: Important Events on Shift:EGD PEG PLACEMENT Patient Status: Diet: Pending Orders: Pending Results/Labs: Pending MD notification: Latest Vital Signs: Temperature 98.9 , Pulse 116 , B/P 140 /52 , Respiratory Rate 20 , O2 SAT 97 , Nasal Cannula, O2 Flow Rate 2 . Vital Sign Comment: EKG Rhythm: Sinus Tachycardia Rhythm change?: N MD Notified?: N - MD Response: Latest Ortega Fall Score: 55 Fall Risk: High Risk Safety Measures: Call light Within Reach, Bed Alarm Zone 1, Side Rails Side Rails x2, Bed position Low and Locked. Fall Precautions: Yellow Socks Yellow Gown Door Sign Patient Fall Education Report given to .
--- NOTE | 2020-04-19 19:30 | NUR ---
NURSE NOTES: Received report from Amy BOND. Pt in stable condition. No s/s of distress or discomfort noted. Pt resting in bed comfortably. Pt is A+Ox1 bedbound on p200 mattress. Pt running Sinus Rhythm on the monitor. Pt on 2L NC sating 98%. Earlier today pt had new peg placement gtube. Will start feeding Glucerna 1.2 @25mL/hr and slowly advance to goal 55mL/hr if pt is tolerating feeding. Pt has 16fr mcmanus draining to gravity and patent. Skin issues noted. Pt has L AC 18g w/D51/2NS 20meQ KCl@75 patent and intact. Pt has bilateral soft wrist restraints for pulling devices and safety will monitor closely. Bed in low and locked position, call light within reach, bedside table within reach. Continue to monitor.
[2020-04-19] MEDS: Dyna-Hex 2% Top Sol 2oz TOPIC SCH (20:56)
[2020-04-19] MEDS: Miralax 17gm pkt ORAL SCH (20:57)
[2020-04-20] VITALS (9 sets, daily range): BP systolic 106–143; BP diastolic 68–83
[2020-04-20] MEDS: D5 1/2NS w/KCl 20mEq 1,000 ML IV SCH ×2 (04:07→17:27)
[2020-04-20] MEDS: NovoLOG Insulin Flexpen SUBQ SCH ×4 (05:55→18:00)
--- NOTE | 2020-04-20 07:15 | NUR ---
NURSE HAND-OFF REPORT: Important Events on Shift:[] Patient Status: [Stable] Diet: [Glucerna 1.2 @55] Pending Orders: [] Pending Results/Labs:[AM Labs] Pending MD notification:[] Latest Vital Signs: Temperature 99.0 , Pulse 119 , B/P 139 /78 , Respiratory Rate 18 , O2 SAT 99 , Nasal Cannula, O2 Flow Rate 4.0 . Vital Sign Comment: [] EKG Rhythm: Sinus Tachycardia Rhythm change?: N MD Notified?: N - MD Response: Latest Ortega Fall Score: 55 Fall Risk: High Risk Safety Measures: Call light Within Reach, Bed Alarm Zone 1, Side Rails Side Rails x2, Bed position Low and Locked. Fall Precautions: Yellow Socks Yellow Gown Door Sign Patient Fall Education Report given to [Amy BOND].
--- NOTE | 2020-04-20 07:25 | NUR ---
NURSE NOTES: RECEIVED PATIENT AND REPORT FROM ANISHA BOND IN BED. PATIENT IS AAO X1. NO S/S OF PAIN OR RESPIRATORY DISTRESS NOTED AT THIS TIME. NG-TUBE IS RUNNING GLUCERNA 1.2 AT 55MLS/HR, NO RESIDUAL AND PATIENT IS TOLERATING WELL. PATIENT IS ON P200 MATTRESS, IV ON LAC 18G IS INTACT, PATENT WITH D51/2NS WITH 20MEQ KCL RUNNING AT 75CC/HR. NOTED PATIENT HAS RIGHT LOWER EXTREMITIES SWOLLEN, MD AWARE. BED IS IN LOWEST POSITION WITH BEDSIDE RAILS UP X3, BRAKES ENGAGED FOR SAFETY, CALL LIGHT IS WITHIN REACH. WILL CONTINUE WITH THE PLAN OF CARE.
--- NOTE | 2020-04-20 07:47 | General Progress Note ---
Subjective ROS Limited/Unobtainable: No Allergies: Coded Allergies: No Known Allergies (Unverified , 03/11/19) Objective Last 24 Hour Vital Signs Date Time Temp Pulse Resp B/P (MAP) Pulse Ox O2 Delivery O2 Flow Rate FiO2 04/20/20 04:00 126 04/20/20 04:00 99.0 119 18 139/78 (98) 99 04/20/20 00:00 99.0 108 18 143/78 (99) 100 04/20/20 00:00 104 04/19/20 21:30 99.0 04/19/20 21:00 Nasal Cannula 4.0 04/19/20 20:00 99.0 115 20 139/79 (99) 98 04/19/20 16:00 116 04/19/20 16:00 98.9 116 20 140/52 (81) 97 04/19/20 14:30 98.1 104 20 122/72 (89) 100 04/19/20 14:15 98.8 111 20 132/68 (89) 98 04/19/20 14:04 89 22 98 04/19/20 14:03 98 22 99 04/19/20 14:00 89 14 117/74 100 Nasal Cannula 2 04/19/20 14:00 98.4 118 20 126/76 (93) 97 04/19/20 13:55 100 16 124/84 100 Nasal Cannula 2 04/19/20 13:50 100 15 122/86 99 Nasal Cannula 4 04/19/20 13:45 104 14 144/75 99 Nasal Cannula 4 04/19/20 12:00 113 04/19/20 12:00 98.2 115 18 132/68 (89) 97 04/19/20 09:00 Nasal Cannula 4.0 04/19/20 08:00 112 04/19/20 08:00 98.6 112 20 125/62 (83) 96 Intake and Output 04/19/20 04/20/20 18:59 06:59 Output Total 500 ml 1000 ml Balance -500 ml -1000 ml Output Urine Total 500 ml 1000 ml # Bowel Movements 1 Laboratory Tests 04/19/20 11:33: POC Whole Blood Glucose 104 04/19/20 16:47: POC Whole Blood Glucose 103 Height (Feet): 5 Height (Inches): 5.00 Weight (Pounds): 201 General Appearance: no apparent distress EENT: normal ENT inspection Neck: supple Cardiovascular: normal rate Respiratory/Chest: decreased breath sounds Abdomen: normal bowel sounds, non tender, soft Extremities: non-tender Assessment/Plan Status: stable, unchanged Assessment/Plan: 1. History of hypertension. 2. Diabetes. 3. CVA. 4. UTI. 5. Colitis. 6. Endometrial cancer. no recurrent gib s/p PEG GTF monitor for residuals Nima Park MD Apr 20, 2020 07:47
[2020-04-20 08:10] LABS: HEMATOCRIT 28.5 % (37.0-47.0); HEMOGLOBIN 9.4 G/DL (12.0-16.0); MEAN CORPUSCULAR VOLUME 87 FL (80-99); PLATELET COUNT 321 K/UL (150-450); RED BLOOD COUNT 3.28 M/UL (4.20-5.40); RED CELL DISTRIBUTION WIDTH 13.9 % (11.6-14.8); WHITE BLOOD COUNT 15.1 K/UL (4.8-10.8)
--- NOTE | 2020-04-20 08:10 | Urology Progress Note ---
Assessment/Plan Status: stable, unchanged Assessment/Plan: 1. Gross hematuria. 2. UTI. 3. Proteinuria. 4. Urinary retention. 5. Probable neurogenic bladder. 6. Probable cystitis. 7. Possible adrenal adenoma. 8. Acute kidney injury history, which is improved. 9. Sepsis history. monitor clinically mcmanus hand irrigated and do PRN will consider larger mcmanus or CBI if needed abx as ordered on ASA, lovenox to be resumed plan for IVC filter? monitor h/h renal fxn stable cysto at some point electively Subjective Allergies: Coded Allergies: No Known Allergies (Unverified , 03/11/19) Subjective all noted, s/p PEG 04/19 nursing staff hand irrigated mcmanus Objective Last 24 Hour Vital Signs Date Time Temp Pulse Resp B/P (MAP) Pulse Ox O2 Delivery O2 Flow Rate FiO2 04/20/20 04:00 126 04/20/20 04:00 99.0 119 18 139/78 (98) 99 04/20/20 00:00 99.0 108 18 143/78 (99) 100 04/20/20 00:00 104 04/19/20 21:30 99.0 04/19/20 21:00 Nasal Cannula 4.0 04/19/20 20:00 99.0 115 20 139/79 (99) 98 04/19/20 16:00 116 04/19/20 16:00 98.9 116 20 140/52 (81) 97 04/19/20 14:30 98.1 104 20 122/72 (89) 100 04/19/20 14:15 98.8 111 20 132/68 (89) 98 04/19/20 14:04 89 22 98 04/19/20 14:03 98 22 99 04/19/20 14:00 89 14 117/74 100 Nasal Cannula 2 04/19/20 14:00 98.4 118 20 126/76 (93) 97 04/19/20 13:55 100 16 124/84 100 Nasal Cannula 2 04/19/20 13:50 100 15 122/86 99 Nasal Cannula 4 04/19/20 13:45 104 14 144/75 99 Nasal Cannula 4 04/19/20 12:00 113 04/19/20 12:00 98.2 115 18 132/68 (89) 97 04/19/20 09:00 Nasal Cannula 4.0 Intake and Output 04/19/20 04/20/20 19:00 07:00 Output Total 500 ml 1000 ml Balance -500 ml -1000 ml Output Urine Total 500 ml 1000 ml # Bowel Movements 1 Microbiology Date/Time Source Procedure Growth Status 04/12/20 19:30 Blood Blood Culture - Final NO GROWTH AFTER 5 DAYS Complete 04/09/20 08:00 Urine,Clean Catch Urine Culture - Final Enterococcus Faecium - Vre Complete 04/08/20 15:55 Rectum VRE Culture - Final Enterococcus Faecium - Vre Complete 04/08/20 15:55 Nasal Nares MRSA Culture - Final Staphylococcus Aureus - Mrsa Complete Current Medications Medications (Trade) Dose Ordered Sig/Jere Route PRN Reason Start Time Stop Time Status Last Admin Dose Admin Acetaminophen (Tylenol) 650 mg Q4H PRN ORAL fever 04/08/20 19:00 05/08/20 18:59 04/19/20 20:57 Ascorbic Acid (Vitamin C) 500 mg TWICE A DAY ORAL 04/14/20 18:00 05/14/20 17:59 04/19/20 18:03 Aspirin (ASA) 81 mg DAILY NG 04/18/20 18:45 06/02/20 18:44 04/18/20 18:43 Chlorhexidine Gluconate (Geno-Hex 2%) 1 applic DAILY@2000 TOPIC 04/08/20 20:00 07/07/20 19:59 04/19/20 20:56 Dexamethasone (Decadron) 6 mg DAILY ORAL 04/12/20 15:15 04/21/20 09:01 04/18/20 08:19 Dextrose (Dextrose 50%) 25 ml Q30M PRN IV Hypoglycemia 04/17/20 12:00 07/16/20 11:59 Dextrose (Dextrose 50%) 50 ml Q30M PRN IV Hypoglycemia 04/17/20 12:00 07/16/20 11:59 Dextrose/ Electrolytes 1,000 ml @ 75 mls/hr [id number] IV 04/08/20 22:30 05/08/20 22:29 04/19/20 14:59 Enoxaparin Sodium (Lovenox) 40 mg DAILY SUBQ 04/14/20 20:00 07/13/20 19:59 04/17/20 09:54 Insulin Aspart (NovoLOG) Q6H SUBQ 04/17/20 12:00 07/16/20 11:59 Linezolid (Zyvox) 600 mg EVERY 12 HOURS ORAL 04/12/20 15:00 04/20/20 14:59 04/19/20 20:57 Metoprolol Tartrate (Lopressor) 5 mg Q1H PRN IVP spb more than 120 04/08/20 19:00 07/07/20 18:59 Multivitamins (Multivitamins) 1 tab DAILY ORAL 04/15/20 09:00 05/15/20 08:59 04/18/20 08:19 Ondansetron HCl (Zofran) 4 mg Q6H PRN IVP Nausea & Vomiting 04/08/20 19:00 05/08/20 18:59 Pantoprazole (Protonix) 40 mg EVERY 12 HOURS IVP 04/10/20 21:00 05/10/20 20:59 04/19/20 20:56 Polyethylene Glycol (Miralax) 17 gm BEDTIME ORAL 04/09/20 21:00 05/09/20 20:59 04/19/20 20:57 Polyethylene Glycol (Miralax) 17 gm DAILYPRN PRN ORAL Constipation 04/08/20 19:00 05/08/20 18:59 Zinc Sulfate (Zinc Sulfate) 220 mg DAILY ORAL 04/15/20 09:00 04/25/20 08:59 04/18/20 08:19 Laboratory Tests 04/19/20 11:33: POC Whole Blood Glucose 104 04/19/20 16:47: POC Whole Blood Glucose 103 04/20/20 07:45: White Blood Count [Pending], Red Blood Count [Pending], Hemoglobin [Pending], Hematocrit [Pending], Mean Corpuscular Volume [Pending], Mean Corpuscular Hemoglobin [Pending], Mean Corpuscular Hemoglobin Concent [Pending], Red Cell Distribution Width [Pending], Platelet Count [Pending], Mean Platelet Volume [Pending], Neutrophils (%) (Auto) [Pending], Lymphocytes (%) (Auto) [Pending], Monocytes (%) (Auto) [Pending], Eosinophils (%) (Auto) [Pending], Basophils (%) (Auto) [Pending], Sodium Level [Pending], Potassium Level [Pending], Chloride Level [Pending], Carbon Dioxide Level [Pending], Blood Urea Nitrogen [Pending], Creatinine [Pending], Estimat Glomerular Filtration Rate [Pending], Glucose Level [Pending], Calcium Level [Pending] Height (Feet): 5 Height (Inches): 5.00 Weight (Pounds): 201 Objective exam stable mcmanus indwelling urine blood-tinged/payam LE duplex (04/19) (+) DVT Bong Valerio MD Apr 20, 2020 08:10
[2020-04-20 08:23] LABS: ANION GAP 6 mmol/L (5-15); BLOOD UREA NITROGEN 14 mg/dL (7-18); CALCIUM 8.8 MG/DL (8.5-10.1); CARBON DIOXIDE 29 MMOL/L (21-32); CHLORIDE 103 MMOL/L (98-107); CREATININE 0.5 MG/DL (0.55-1.30); POTASSIUM 4.4 MMOL/L (3.5-5.1); SODIUM 138 MMOL/L (136-145)
--- NOTE | 2020-04-20 08:29 | NUR ---
Speech Pathology Note (Dysphagia) last 24 hours labs and vital reviewed. current vascular issues noted, plan noted EGD/PEG operative report reviewed. I did not provide direct therapy at this time due to possibility of therapeutic contraindication for her current status A: 1. Dysphagia with aspiration risk 2. POD # 1 PEG placed 3. Overall prognosis is poor due to underlying etiology P: 1. NPO for now with aspiration precaution -Will consider PO intake for comfort/satisfaction when medical stable and starts requesting PO -SP/SW service will intermittently follow up for possible PO trial appropriateness 2. PEG care as indicated 3. Continue with supportive care. Harsh Suazo
[2020-04-20] MEDS: Aspirin Baby 81mg NG SCH (09:04)
[2020-04-20] MEDS: Ascorbic Acid 500mg tab ORAL SCH ×2 (09:05→17:47)
[2020-04-20] MEDS: Zinc Sulfate 220mg ORAL SCH (09:05)
[2020-04-20] MEDS: Pantoprazole Inj IVP SCH ×2 (09:07→21:05)
[2020-04-20] MEDS: Enoxaparin 40mg Inj SUBQ SCH (09:08)
--- NOTE | 2020-04-20 09:29 | NUR ---
RD ASSESSMENT & RECOMMENDATIONS SEE CARE ACTIVITY FOR COMPLETE ASSESSMENT DAILY ESTIMATED NEEDS: Needs based on Obesity, cardiac/ 67.6kg abw 22-27 kcals/kg 5108-0007 total kcals 1.25-1.5 g protein/kg 85-101 g total protein 25-30 mL/kg 1000-5758 total fluid mLs NUTRITION DIAGNOSIS: * Swallowing difficulty R/T dysphagia, h/o CVA, now s/p PEG placement. 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
[2020-04-20] MEDS ORDERED: Sodium Bicarbonate 4% 2.4meq/5ml vial IV PRN (09:30)
[2020-04-20] MEDS ORDERED: Lidocaine 1% Plain 30 ml INJ PRN ×2 (09:30→17:15)
--- NOTE | 2020-04-20 09:32 | Pulmonology Progress Note ---
Subjective ROS Limited/Unobtainable: No Constitutional: Reports: no symptoms, fatigue HEENT: Repors: no symptoms Allergies: Coded Allergies: No Known Allergies (Unverified , 03/11/19) Objective Last 24 Hour Vital Signs Date Time Temp Pulse Resp B/P (MAP) Pulse Ox O2 Delivery O2 Flow Rate FiO2 04/20/20 04:00 126 04/20/20 04:00 99.0 119 18 139/78 (98) 99 04/20/20 00:00 99.0 108 18 143/78 (99) 100 04/20/20 00:00 104 04/19/20 21:30 99.0 04/19/20 21:00 Nasal Cannula 4.0 04/19/20 20:00 99.0 115 20 139/79 (99) 98 04/19/20 16:00 116 04/19/20 16:00 98.9 116 20 140/52 (81) 97 04/19/20 14:30 98.1 104 20 122/72 (89) 100 04/19/20 14:15 98.8 111 20 132/68 (89) 98 04/19/20 14:04 89 22 98 04/19/20 14:03 98 22 99 04/19/20 14:00 89 14 117/74 100 Nasal Cannula 2 04/19/20 14:00 98.4 118 20 126/76 (93) 97 04/19/20 13:55 100 16 124/84 100 Nasal Cannula 2 04/19/20 13:50 100 15 122/86 99 Nasal Cannula 4 04/19/20 13:45 104 14 144/75 99 Nasal Cannula 4 04/19/20 12:00 113 04/19/20 12:00 98.2 115 18 132/68 (89) 97 Intake and Output 04/19/20 04/20/20 19:00 07:00 Output Total 500 ml 1000 ml Balance -500 ml -1000 ml Output Urine Total 500 ml 1000 ml # Bowel Movements 1 General Appearance: WD/WN HEENT: normocephalic, atraumatic Respiratory: chest wall non-tender, lungs clear Breasts: no masses Cardiovascular: normal peripheral pulses Abdomen: normal bowel sounds, soft, non tender Extremities: no cyanosis 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, alert Lymphatic: no neck adenopathy Laboratory Tests 04/19/20 11:33: POC Whole Blood Glucose 104 04/19/20 16:47: POC Whole Blood Glucose 103 04/20/20 07:45: White Blood Count 15.1H, Red Blood Count 3.28L, Hemoglobin 9.4L, Hematocrit 28.5L, Mean Corpuscular Volume 87, Mean Corpuscular Hemoglobin 28.7, Mean Corpuscular Hemoglobin Concent 33.0, Red Cell Distribution Width 13.9, Platelet Count 321, Mean Platelet Volume 4.9L, Neutrophils (%) (Auto) , Lymphocytes (%) (Auto) , Monocytes (%) (Auto) , Eosinophils (%) (Auto) , Basophils (%) (Auto) , Differential Total Cells Counted 100, Neutrophils % (Manual) 91H, Lymphocytes % (Manual) 4L, Monocytes % (Manual) 5, Eosinophils % (Manual) 0, Basophils % (Manual) 0, Band Neutrophils 0, Platelet Estimate Adequate, Platelet Morphology Normal, Red Blood Cell Morphology Normal, Sodium Level 138, Potassium Level 4.4, Chloride Level 103, Carbon Dioxide Level 29, Anion Gap 6, Blood Urea Nitrogen 14, Creatinine 0.5L, Estimat Glomerular Filtration Rate > 60, Glucose Level 106, Calcium Level 8.8 Current Medications Medications (Trade) Dose Ordered Sig/Jere Route PRN Reason Start Time Stop Time Status Last Admin Dose Admin Acetaminophen (Tylenol) 650 mg Q4H PRN ORAL fever 04/08/20 19:00 05/08/20 18:59 04/19/20 20:57 Ascorbic Acid (Vitamin C) 500 mg TWICE A DAY ORAL 04/14/20 18:00 05/14/20 17:59 04/20/20 09:05 Aspirin (ASA) 81 mg DAILY NG 04/18/20 18:45 06/02/20 18:44 04/20/20 09:04 Chlorhexidine Gluconate (Geno-Hex 2%) 1 applic DAILY@1999 TOPIC 04/08/20 20:00 07/07/20 19:59 04/19/20 20:56 Dexamethasone (Decadron) 6 mg DAILY ORAL 04/12/20 15:15 04/21/20 09:01 04/20/20 09:07 Dextrose (Dextrose 50%) 25 ml Q30M PRN IV Hypoglycemia 04/17/20 12:00 07/16/20 11:59 Dextrose (Dextrose 50%) 50 ml Q30M PRN IV Hypoglycemia 04/17/20 12:00 07/16/20 11:59 Dextrose/ Electrolytes 1,000 ml @ 75 mls/hr [id number] IV 04/08/20 22:30 05/08/20 22:29 04/19/20 14:59 Enoxaparin Sodium (Lovenox) 40 mg DAILY SUBQ 04/14/20 20:00 07/13/20 19:59 04/20/20 09:08 Insulin Aspart (NovoLOG) Q6H SUBQ 04/17/20 12:00 07/16/20 11:59 Linezolid (Zyvox) 600 mg EVERY 12 HOURS ORAL 04/12/20 15:00 04/20/20 14:59 04/20/20 09:05 Metoprolol Tartrate (Lopressor) 5 mg Q1H PRN IVP spb more than 120 04/08/20 19:00 07/07/20 18:59 Multivitamins (Multivitamins) 1 tab DAILY ORAL 04/15/20 09:00 05/15/20 08:59 04/20/20 09:05 Ondansetron HCl (Zofran) 4 mg Q6H PRN IVP Nausea & Vomiting 04/08/20 19:00 05/08/20 18:59 Pantoprazole (Protonix) 40 mg EVERY 12 HOURS IVP 04/10/20 21:00 05/10/20 20:59 04/20/20 09:07 Polyethylene Glycol (Miralax) 17 gm BEDTIME ORAL 04/09/20 21:00 05/09/20 20:59 04/19/20 20:57 Polyethylene Glycol (Miralax) 17 gm DAILYPRN PRN ORAL Constipation 04/08/20 19:00 05/08/20 18:59 Zinc Sulfate (Zinc Sulfate) 220 mg DAILY ORAL 04/15/20 09:00 04/25/20 08:59 04/20/20 09:05 Assessment/Plan Problems: (1) Hemorrhagic shock (2) Sepsis (3) Bacteremia (4) History of CVA (cerebrovascular accident) (5) Rectal bleeding (6) Hematuria Assessment/Plan entire right leg is swollen. US of leg pending, Pt can't be on anticoagulants b/o hematuria, will order IVC filter. had episodes of vomitin ng tube is vernon confused Neuro evaluation requested f/u ID recommendations check electrolytes GI note appreciated continue Decadron dvt prophylaxis. Marina Buitrago MD Apr 20, 2020 09:32
--- NOTE | 2020-04-20 10:20 | Nephrology Progress Note ---
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 Renal parameters stable. April 19: Labs reviewed. Electrolytes and renal parameters stable. April 18: Labs reviewed. Electrolytes and renal parameters stable. April 17: Lab reviewed. Stable from renal standpoint of view April 16: Labs reviewed. Remains stable from renal standpoint of view. Continue per consultants. April 15: Labs reviewed. Electrolyte abnormalities addressed. Continue as is. April 14: Labs reviewed. Low phosphorus and low magnesium corrected. Continue per consultants. Blood pressure remains stable. April 13: Electrolytes within normal limit. Renal parameters within normal limit. Continue per consultants. April 12: Electrolyte abnormalities noted and addressed. Continue per consultants Magnesium IV supplement as needed Potassium IV supplement as needed Phosphorus IV supplement as needed Monitor electrolytes Monitor hemoglobin hematocrit IV Protonix Adjust IV fluid Antibiotics per consultants Subjective ROS Limited/Unobtainable: Yes Objective Objective Last 24 Hour Vital Signs Date Time Temp Pulse Resp B/P (MAP) Pulse Ox O2 Delivery O2 Flow Rate FiO2 04/20/20 04:00 126 04/20/20 04:00 99.0 119 18 139/78 (98) 99 04/20/20 00:00 99.0 108 18 143/78 (99) 100 04/20/20 00:00 104 04/19/20 21:30 99.0 04/19/20 21:00 Nasal Cannula 4.0 04/19/20 20:00 99.0 115 20 139/79 (99) 98 04/19/20 16:00 116 04/19/20 16:00 98.9 116 20 140/52 (81) 97 04/19/20 14:30 98.1 104 20 122/72 (89) 100 04/19/20 14:15 98.8 111 20 132/68 (89) 98 04/19/20 14:04 89 22 98 9/29/20 14:03 98 22 99 04/19/20 14:00 89 14 117/74 100 Nasal Cannula 2 04/19/20 14:00 98.4 118 20 126/76 (93) 97 04/19/20 13:55 100 16 124/84 100 Nasal Cannula 2 04/19/20 13:50 100 15 122/86 99 Nasal Cannula 4 04/19/20 13:45 104 14 144/75 99 Nasal Cannula 4 04/19/20 12:00 113 04/19/20 12:00 98.2 115 18 132/68 (89) 97 Intake and Output 04/19/20 04/20/20 19:00 07:00 Output Total 500 ml 1000 ml Balance -500 ml -1000 ml Output Urine Total 500 ml 1000 ml # Bowel Movements 1 Laboratory Tests 04/19/20 11:33: POC Whole Blood Glucose 104 04/19/20 16:47: POC Whole Blood Glucose 103 04/20/20 07:45: White Blood Count 15.1H, Red Blood Count 3.28L, Hemoglobin 9.4L, Hematocrit 28.5L, Mean Corpuscular Volume 87, Mean Corpuscular Hemoglobin 28.7, Mean Corpuscular Hemoglobin Concent 33.0, Red Cell Distribution Width 13.9, Platelet Count 321, Mean Platelet Volume 4.9L, Neutrophils (%) (Auto) , Lymphocytes (%) (Auto) , Monocytes (%) (Auto) , Eosinophils (%) (Auto) , Basophils (%) (Auto) , Differential Total Cells Counted 100, Neutrophils % (Manual) 91H, Lymphocytes % (Manual) 4L, Monocytes % (Manual) 5, Eosinophils % (Manual) 0, Basophils % (Manual) 0, Band Neutrophils 0, Platelet Estimate Adequate, Platelet Morphology Normal, Red Blood Cell Morphology Normal, Sodium Level 138, Potassium Level 4.4, Chloride Level 103, Carbon Dioxide Level 29, Anion Gap 6, Blood Urea Nitrogen 14, Creatinine 0.5L, Estimat Glomerular Filtration Rate > 60, Glucose Level 106, Calcium Level 8.8 04/20/20 09:33: POC Whole Blood Glucose [Pending] Height (Feet): 5 Height (Inches): 5.00 Weight (Pounds): 201 General Appearance: no apparent distress, lethargic Neck: limited range of motion Cardiovascular: tachycardia Respiratory/Chest: decreased breath sounds Abdomen: soft Objective No change Steven Edwards MD Apr 20, 2020 10:20
--- NOTE | 2020-04-20 10:53 | Infectious Diseases Prog Note ---
Assessment/Plan Assessment: Right Fem DVT US 04/19/20 - Com. Fem. DVT Septic Shock- SP COVID19 pneumonia- on 2l NC> hypoxic on ABG, now at 4L NC -04/12 CXR: Bilateral infiltrates, developing since 04/08/2020, likely on the basis of pneumonia. -04/08 CXR: Mild diffuse peribronchial thickening in the absence of airspace consolidation, which is nonspecific but can be seen with infectious/inflammatory airways disease in the appropriate clinical context. rapid covid pcr + UTI -04/09 ucx >100k VRE (E. faecium); S linezolid -04/08 u/a wbc tnct, nit neg, leuk +3; ucx <10k P, mirabilis (S Ceftriaxone, Zosyn), >100k gamma hemolytic strep Gram positive bacteremia- likely contaminant -04/08 Bcx 1/4 S. hominis, 2/4 S. auricularis ; 04/10 Bcx NGTD Low grade fever, SP No leukocytosis Vaginal bleeding -CT abd/p wo: Study limited due to lack of IV contrast. Pulmonary findings could represent multifocal pneumonia or aspiration.These findings could also represent viral pneumonia, although this is not highly specific pattern. Prominent rectal stool burden with mild wall thickening could represent stercoral colitis in the proper context. Otherwise, diffuse large colonic stool burden could be a cause for pain. Left superior renal pole ill-defined mild hyperdensity could be a manifestation of chronic medical renal disease in the proper context. Consider outpatient CT adrenal glands to further evaluate indeterminate left adrenal 1.2 cm nodularity. Calcified fibroid uterus. Appendectomy. 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 Will continue to follow along with you. Subjective Allergies: Coded Allergies: No Known Allergies (Unverified , 03/11/19) Afebrile Leukocytosis mild and persistent DVT Right fem per US yesterday Stable on 4L NC Objective Last 24 Hour Vital Signs Date Time Temp Pulse Resp B/P (MAP) Pulse Ox O2 Delivery O2 Flow Rate FiO2 04/20/20 09:00 Nasal Cannula 4.0 04/20/20 08:00 98.2 121 18 134/68 (90) 98 04/20/20 08:00 126 04/20/20 04:00 126 04/20/20 04:00 99.0 119 18 139/78 (98) 99 04/20/20 00:00 99.0 108 18 143/78 (99) 100 04/20/20 00:00 104 04/19/20 21:30 99.0 04/19/20 21:00 Nasal Cannula 4.0 04/19/20 20:00 99.0 115 20 139/79 (99) 98 04/19/20 16:00 116 04/19/20 16:00 98.9 116 20 140/52 (81) 97 04/19/20 14:30 98.1 104 20 122/72 (89) 100 04/19/20 14:15 98.8 111 20 132/68 (89) 98 04/19/20 14:04 89 22 98 04/19/20 14:03 98 22 99 04/19/20 14:00 89 14 117/74 100 Nasal Cannula 2 04/19/20 14:00 98.4 118 20 126/76 (93) 97 04/19/20 13:55 100 16 124/84 100 Nasal Cannula 2 04/19/20 13:50 100 15 122/86 99 Nasal Cannula 4 04/19/20 13:45 104 14 144/75 99 Nasal Cannula 4 04/19/20 12:00 113 04/19/20 12:00 98.2 115 18 132/68 (89) 97 Height (Feet): 5 Height (Inches): 5.00 Weight (Pounds): 201 GENERAL: NAD on 4L NC HEENT: NCAT, MMM, EOMI LUNGS: Equal rise and fall of chest B/L no accessory muscle use ABDOMEN: Soft, nondistended Laboratory Tests Test 04/19/20 11:33 04/19/20 16:47 04/20/20 07:45 04/20/20 09:33 POC Whole Blood Glucose 104 MG/DL (74-106) 103 MG/DL (74-106) Pending White Blood Count 15.1 K/UL (4.8-10.8) H Red Blood Count 3.28 M/UL (4.20-5.40) L Hemoglobin 9.4 G/DL (12.0-16.0) L Hematocrit 28.5 % (37.0-47.0) L Mean Corpuscular Volume 87 FL (80-99) Mean Corpuscular Hemoglobin 28.7 PG (27.0-31.0) Mean Corpuscular Hemoglobin Concent 33.0 G/DL (32.0-36.0) Red Cell Distribution Width 13.9 % (11.6-14.8) Platelet Count 321 K/UL (150-450) Mean Platelet Volume 4.9 FL (6.5-10.1) L Neutrophils (%) (Auto) % (45.0-75.0) Lymphocytes (%) (Auto) % (20.0-45.0) Monocytes (%) (Auto) % (1.0-10.0) Eosinophils (%) (Auto) % (0.0-3.0) Basophils (%) (Auto) % (0.0-2.0) Differential Total Cells Counted 100 Neutrophils % (Manual) 91 % (45-75) H Lymphocytes % (Manual) 4 % (20-45) L Monocytes % (Manual) 5 % (1-10) Eosinophils % (Manual) 0 % (0-3) Basophils % (Manual) 0 % (0-2) Band Neutrophils 0 % (0-8) Platelet Estimate Adequate Platelet Morphology Normal Red Blood Cell Morphology Normal Sodium Level 138 MMOL/L (136-145) Potassium Level 4.4 MMOL/L (3.5-5.1) Chloride Level 103 MMOL/L (98-107) Carbon Dioxide Level 29 MMOL/L (21-32) Anion Gap 6 mmol/L (5-15) Blood Urea Nitrogen 14 mg/dL (7-18) Creatinine 0.5 MG/DL (0.55-1.30) L Estimat Glomerular Filtration Rate > 60 mL/min (>60) Glucose Level 106 MG/DL (74-106) Calcium Level 8.8 MG/DL (8.5-10.1) Current Medications Medications (Trade) Dose Ordered Sig/Jere Route PRN Reason Start Time Stop Time Status Last Admin Dose Admin Acetaminophen (Tylenol) 650 mg Q4H PRN ORAL fever 04/08/20 19:00 05/08/20 18:59 04/19/20 20:57 Ascorbic Acid (Vitamin C) 500 mg TWICE A DAY ORAL 04/14/20 18:00 05/14/20 17:59 04/20/20 09:05 Aspirin (ASA) 81 mg DAILY NG 04/18/20 18:45 06/02/20 18:44 04/20/20 09:04 Chlorhexidine Gluconate (Geno-Hex 2%) 1 applic DAILY@2000 TOPIC 04/08/20 20:00 07/07/20 19:59 04/19/20 20:56 Dexamethasone (Decadron) 6 mg DAILY ORAL 04/12/20 15:15 04/21/20 09:01 04/20/20 09:07 Dextrose (Dextrose 50%) 25 ml Q30M PRN IV Hypoglycemia 04/17/20 12:00 07/16/20 11:59 Dextrose (Dextrose 50%) 50 ml Q30M PRN IV Hypoglycemia 04/17/20 12:00 07/16/20 11:59 Dextrose/ Electrolytes 1,000 ml @ 75 mls/hr [id number] IV 04/08/20 22:30 05/08/20 22:29 04/19/20 14:59 Enoxaparin Sodium (Lovenox) 40 mg DAILY SUBQ 04/14/20 20:00 07/13/20 19:59 04/20/20 09:08 Insulin Aspart (NovoLOG) Q6H SUBQ 04/17/20 12:00 07/16/20 11:59 Lidocaine HCl (Xylocaine 1% 30ml) 30 ml NOW PRN INJ Radiology Procedure 04/20/20 09:30 04/23/20 09:29 Linezolid (Zyvox) 600 mg EVERY 12 HOURS ORAL 04/12/20 15:00 04/20/20 14:59 04/20/20 09:05 Metoprolol Tartrate (Lopressor) 5 mg Q1H PRN IVP spb more than 120 04/08/20 19:00 07/07/20 18:59 Multivitamins (Multivitamins) 1 tab DAILY ORAL 04/15/20 09:00 05/15/20 08:59 04/20/20 09:05 Ondansetron HCl (Zofran) 4 mg Q6H PRN IVP Nausea & Vomiting 04/08/20 19:00 05/08/20 18:59 Pantoprazole (Protonix) 40 mg EVERY 12 HOURS IVP 04/10/20 21:00 05/10/20 20:59 04/20/20 09:07 Polyethylene Glycol (Miralax) 17 gm BEDTIME ORAL 04/09/20 21:00 05/09/20 20:59 04/19/20 20:57 Polyethylene Glycol (Miralax) 17 gm DAILYPRN PRN ORAL Constipation 04/08/20 19:00 05/08/20 18:59 Sodium Bicarbonate (Sodium Bicarbonate 4%) 1 ml NOW PRN IV Radiology Procedure 04/20/20 09:30 04/23/20 09:29 Zinc Sulfate (Zinc Sulfate) 220 mg DAILY ORAL 04/15/20 09:00 04/25/20 08:59 04/20/20 09:05 Prabhu Jacques MD Apr 20, 2020 10:53
--- NOTE | 2020-04-20 12:37 | Surgery Progress Note ---
Surgery Progress Note Subjective Additional Comments leukocytosis exam stable comfortable Objective Last 24 Hour Vital Signs Date Time Temp Pulse Resp B/P (MAP) Pulse Ox O2 Delivery O2 Flow Rate FiO2 04/20/20 09:00 Nasal Cannula 4.0 04/20/20 08:00 98.2 121 18 134/68 (90) 98 04/20/20 08:00 126 04/20/20 04:00 126 04/20/20 04:00 99.0 119 18 139/78 (98) 99 04/20/20 00:00 99.0 108 18 143/78 (99) 100 04/20/20 00:00 104 04/19/20 21:30 99.0 04/19/20 21:00 Nasal Cannula 4.0 04/19/20 20:00 99.0 115 20 139/79 (99) 98 04/19/20 16:00 116 04/19/20 16:00 98.9 116 20 140/52 (81) 97 04/19/20 14:30 98.1 104 20 122/72 (89) 100 04/19/20 14:15 98.8 111 20 132/68 (89) 98 04/19/20 14:04 89 22 98 04/19/20 14:03 98 22 99 04/19/20 14:00 89 14 117/74 100 Nasal Cannula 2 04/19/20 14:00 98.4 118 20 126/76 (93) 97 04/19/20 13:55 100 16 124/84 100 Nasal Cannula 2 04/19/20 13:50 100 15 122/86 99 Nasal Cannula 4 04/19/20 13:45 104 14 144/75 99 Nasal Cannula 4 I&O Intake and Output 04/19/20 04/20/20 18:59 06:59 Output Total 500 ml 1000 ml Balance -500 ml -1000 ml Output Urine Total 500 ml 1000 ml # Bowel Movements 1 Dressing: other Wound: other Cardiovascular: RSR Respiratory: decreased breath sounds Abdomen: soft, non-tender, present bowel sounds Extremities: no tenderness, no cyanosis Laboratory Tests Test 04/19/20 16:47 04/20/20 07:45 04/20/20 09:33 POC Whole Blood Glucose 103 MG/DL (74-106) Pending White Blood Count 15.1 K/UL (4.8-10.8) H Red Blood Count 3.28 M/UL (4.20-5.40) L Hemoglobin 9.4 G/DL (12.0-16.0) L Hematocrit 28.5 % (37.0-47.0) L Mean Corpuscular Volume 87 FL (80-99) Mean Corpuscular Hemoglobin 28.7 PG (27.0-31.0) Mean Corpuscular Hemoglobin Concent 33.0 G/DL (32.0-36.0) Red Cell Distribution Width 13.9 % (11.6-14.8) Platelet Count 321 K/UL (150-450) Mean Platelet Volume 4.9 FL (6.5-10.1) L Neutrophils (%) (Auto) % (45.0-75.0) Lymphocytes (%) (Auto) % (20.0-45.0) Monocytes (%) (Auto) % (1.0-10.0) Eosinophils (%) (Auto) % (0.0-3.0) Basophils (%) (Auto) % (0.0-2.0) Differential Total Cells Counted 100 Neutrophils % (Manual) 91 % (45-75) H Lymphocytes % (Manual) 4 % (20-45) L Monocytes % (Manual) 5 % (1-10) Eosinophils % (Manual) 0 % (0-3) Basophils % (Manual) 0 % (0-2) Band Neutrophils 0 % (0-8) Platelet Estimate Adequate Platelet Morphology Normal Red Blood Cell Morphology Normal Sodium Level 138 MMOL/L (136-145) Potassium Level 4.4 MMOL/L (3.5-5.1) Chloride Level 103 MMOL/L (98-107) Carbon Dioxide Level 29 MMOL/L (21-32) Anion Gap 6 mmol/L (5-15) Blood Urea Nitrogen 14 mg/dL (7-18) Creatinine 0.5 MG/DL (0.55-1.30) L Estimat Glomerular Filtration Rate > 60 mL/min (>60) Glucose Level 106 MG/DL (74-106) Calcium Level 8.8 MG/DL (8.5-10.1) Plan Problems: (1) Hematuria (2) Rectal bleeding Assessment & Plan: 64-year-old female identified to have rectal bleeding on admission. GI aware surgery aware no active bleeding at this time hemoglobin noted. Transfuse PRBC as needed. Pending scope consideration. passed swallow no bleeding on diet may need peg as per GI cont diet urology input appreciated mcmanus being irrigated supplements added for wound care DAILY ESTIMATED NEEDS: Needs based on Obesity, cardiac/ 67.6kg abw 22-27 kcals/kg 8843-5558 total kcals 1-1.5 g protein/kg 68-101 g total protein 25-30 mL/kg 2193-0677 total fluid mLs NUTRITION DIAGNOSIS: * Swallowing difficulty R/T dysphagia, h/o CVA, clinical condition as evidenced by seen by [employer]IST w/ rec for pureed moist texture w/ thin liquids. 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 CURRENT DIET:[facility] MED, pureed moist w/ thin liquids PO DIET RECOMMENDATIONS: Liberalized REGULAR w/ poor PO ([facility] MED+LOW NA w/ PO intake >50%) ADDITIONAL RECOMMENDATIONS: * Per SNF: HT=64" XU=[id number] (04/05/20) -> rec daily calibrated bedscale wt, monitor trend Possible wt loss of 68 lbs/29% in 13 months * W/ poor PO intake, add Glucerna TID w/ meals * Wound healing: Add MVI x 1, Vit C 500mg BID, ZnSO4 220mg QD x 10 days Woody (QD for now- increase to BID w/ good acceptance) added to tray * Monitor lytes, replete as needed (low k and mag) (3) Hemorrhagic shock (4) Acute CVA (cerebrovascular accident) (5) Septic shock (6) Anemia (7) Sepsis (8) Altered mental status (9) Atrial fibrillation with RVR (10) COVID-19 Assessment & Plan: ++ as per ID and pulm cxr noted (11) History of CVA (cerebrovascular accident) (12) Decubitus skin ulcer Assessment & Plan: Patient identified on admission to have a 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 apply therahoney to areas of slough. apply mositure barrier paste on the periwound. cover with optifoam dressing. change Q3D and PRN. Apply cavilon on both heels& malleoli. Cover each site with optifoam dressing. Change Q7D and PRN. DAILY ESTIMATED NEEDS: Needs based on Obesity, cardiac/ 67.6kg abw 22-27 kcals/kg 5765-6559 total kcals 1.25-1.5 g protein/kg 85-101 g total protein 25-30 mL/kg 1083-6973 total fluid mLs NUTRITION DIAGNOSIS: * Swallowing difficulty R/T dysphagia, h/o CVA, now s/p PEG placement. 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 CURRENT TF:Glucerna 1.2 @55 ENTERAL NUTRITION RECOMMENDATIONS: Glucerna 1.2 goal of 60ml/hr x24 hrs to provide 1440ml, 1728 kcal, 86g pro, 1159 ml free H2O Rec to Increase current TF to goal of 60ml/hr to meet 100% est needs Flush per MD/ HOB over 30 degrees ADDITIONAL RECOMMENDATIONS: * Per SNF: HT=64" TF=[id number] (04/05/20) -> rec daily calibrated bedscale wt, monitor trend Possible wt loss of 68 lbs/29% in 13 months * W/ poor PO intake, add Glucerna TID-now s/p PEG * Wound healing: Add MVI x 1, Vit C 500mg BID, ZnSO4 220mg QD x 10 days Woody BID * Monitor lytes, replete as needed Elian Ren Apr 20, 2020 12:37
--- NOTE | 2020-04-20 12:53 | Internal Med Progress Note ---
Subjective Date of Service: Apr 20, 2020 Physician Name Tariq Murphy Attending Physician Dewayne Mendoza MD Current Medications Medications (Trade) Dose Ordered Sig/Jere Route PRN Reason Start Time Stop Time Status Last Admin Dose Admin Acetaminophen (Tylenol) 650 mg Q4H PRN ORAL fever 04/08/20 19:00 05/08/20 18:59 04/19/20 20:57 Ascorbic Acid (Vitamin C) 500 mg TWICE A DAY ORAL 04/14/20 18:00 05/14/20 17:59 04/20/20 09:05 Aspirin (ASA) 81 mg DAILY NG 04/18/20 18:45 06/02/20 18:44 04/20/20 09:04 Chlorhexidine Gluconate (Geno-Hex 2%) 1 applic DAILY@1999 TOPIC 04/08/20 20:00 07/07/20 19:59 04/19/20 20:56 Dexamethasone (Decadron) 6 mg DAILY ORAL 04/12/20 15:15 04/21/20 09:01 04/20/20 09:07 Dextrose (Dextrose 50%) 25 ml Q30M PRN IV Hypoglycemia 04/17/20 12:00 07/16/20 11:59 Dextrose (Dextrose 50%) 50 ml Q30M PRN IV Hypoglycemia 04/17/20 12:00 07/16/20 11:59 Dextrose/ Electrolytes 1,000 ml @ 75 mls/hr [id number] IV 04/08/20 22:30 05/08/20 22:29 04/19/20 14:59 Enoxaparin Sodium (Lovenox) 40 mg DAILY SUBQ 04/14/20 20:00 07/13/20 19:59 04/20/20 09:08 Insulin Aspart (NovoLOG) Q6H SUBQ 04/17/20 12:00 07/16/20 11:59 Lidocaine HCl (Xylocaine 1% 30ml) 30 ml NOW PRN INJ Radiology Procedure 04/20/20 09:30 04/23/20 09:29 Linezolid (Zyvox) 600 mg EVERY 12 HOURS ORAL 04/12/20 15:00 04/20/20 14:59 04/20/20 09:05 Metoprolol Tartrate (Lopressor) 5 mg Q1H PRN IVP spb more than 120 04/08/20 19:00 07/07/20 18:59 Multivitamins (Multivitamins) 1 tab DAILY ORAL 04/15/20 09:00 05/15/20 08:59 04/20/20 09:05 Ondansetron HCl (Zofran) 4 mg Q6H PRN IVP Nausea & Vomiting 04/08/20 19:00 05/08/20 18:59 Pantoprazole (Protonix) 40 mg EVERY 12 HOURS IVP 04/10/20 21:00 05/10/20 20:59 04/20/20 09:07 Polyethylene Glycol (Miralax) 17 gm BEDTIME ORAL 04/09/20 21:00 05/09/20 20:59 04/19/20 20:57 Polyethylene Glycol (Miralax) 17 gm DAILYPRN PRN ORAL Constipation 04/08/20 19:00 05/08/20 18:59 Sodium Bicarbonate (Sodium Bicarbonate 4%) 1 ml NOW PRN IV Radiology Procedure 04/20/20 09:30 04/23/20 09:29 Zinc Sulfate (Zinc Sulfate) 220 mg DAILY ORAL 04/15/20 09:00 04/25/20 08:59 04/20/20 09:05 Allergies: Coded Allergies: No Known Allergies (Unverified , 03/11/19) ROS Limited/Unobtainable: Yes Subjective 64 YO F with inoperable uterine cancer admitted with tachycardia. Now atrial fibrillation with rapid ventricular rate. Also COVID 19 positive. Cover for Int Med-DR Mendoza. New DVT RLE Objective Last Vital Signs Date Time Temp Pulse Resp B/P (MAP) Pulse Ox O2 Delivery O2 Flow Rate FiO2 04/20/20 12:00 111 04/20/20 12:00 97.1 18 130/79 (96) 99 04/20/20 09:00 Nasal Cannula 4.0 04/14/20 19:42 28 Laboratory Tests Test 04/19/20 16:47 04/20/20 07:45 04/20/20 09:33 POC Whole Blood Glucose 103 MG/DL (74-106) Pending White Blood Count 15.1 K/UL (4.8-10.8) H Red Blood Count 3.28 M/UL (4.20-5.40) L Hemoglobin 9.4 G/DL (12.0-16.0) L Hematocrit 28.5 % (37.0-47.0) L Mean Corpuscular Volume 87 FL (80-99) Mean Corpuscular Hemoglobin 28.7 PG (27.0-31.0) Mean Corpuscular Hemoglobin Concent 33.0 G/DL (32.0-36.0) Red Cell Distribution Width 13.9 % (11.6-14.8) Platelet Count 321 K/UL (150-450) Mean Platelet Volume 4.9 FL (6.5-10.1) L Neutrophils (%) (Auto) % (45.0-75.0) Lymphocytes (%) (Auto) % (20.0-45.0) Monocytes (%) (Auto) % (1.0-10.0) Eosinophils (%) (Auto) % (0.0-3.0) Basophils (%) (Auto) % (0.0-2.0) Differential Total Cells Counted 100 Neutrophils % (Manual) 91 % (45-75) H Lymphocytes % (Manual) 4 % (20-45) L Monocytes % (Manual) 5 % (1-10) Eosinophils % (Manual) 0 % (0-3) Basophils % (Manual) 0 % (0-2) Band Neutrophils 0 % (0-8) Platelet Estimate Adequate Platelet Morphology Normal Red Blood Cell Morphology Normal Sodium Level 138 MMOL/L (136-145) Potassium Level 4.4 MMOL/L (3.5-5.1) Chloride Level 103 MMOL/L (98-107) Carbon Dioxide Level 29 MMOL/L (21-32) Anion Gap 6 mmol/L (5-15) Blood Urea Nitrogen 14 mg/dL (7-18) Creatinine 0.5 MG/DL (0.55-1.30) L Estimat Glomerular Filtration Rate > 60 mL/min (>60) Glucose Level 106 MG/DL (74-106) Calcium Level 8.8 MG/DL (8.5-10.1) Intake and Output 04/19/20 04/20/20 18:59 06:59 Output Total 500 ml 1000 ml Balance -500 ml -1000 ml Output Urine Total 500 ml 1000 ml # Bowel Movements 1 Objective PHYSICAL EXAMINATION: GENERAL: The patient awake, responsive, however altered and confused. The patient appears to be paler and chronically-ill appearing. HEAD AND NECK: Pupils are equal and reactive to light. Extraocular movements are intact. Neck was supple. No JVD. LUNGS: Bilateral air entry. Decreased air in the bases. HEART: S1, S2. Tachycardic, irregular. No murmur or gallop was appreciated. ABDOMEN: Soft, nondistended. Tenderness on the lower abdominal area. Mildly obese. EXTREMITIES: No cyanosis, clubbing, or edema. GENITOURINARY: The patient noted to have Lowe catheter with dark red urine collection in a Lowe catheter. NEUROLOGIC: Cranial nerves II through XII grossly intact. The patient moving all extremities equally. Sensory is intact. Gait was not able to assess due to the patient's status. RECTAL: Refused and deferred. PSYCHIATRIC: Mood and affect, unable to obtain due to the patient's status. Assessment/Plan Assessment/Plan ASSESSMENT: 1. COVID-19 pneumonia. 2. Altered mental status, most likely secondary to toxic metabolic encephalopathy. 3. Atrial fibrillation with rapid ventricular rate. 4. Anemia most likely secondary to acute blood loss. 5. Sepsis secondary to urinary tract infection as well as pneumonia. 6. Vaginal bleeding. 7. UTI=VRE 8. History of diabetes type 2. 9. Inoperable endometrial adenocarcinoma, status post brachytherapy. 10. Hypertension. 11. History of lacunar infarction. 12. Deep venous thrombisis Right leg PLAN: 1. Telemetry 2. Dr. Buitrago=Pulmonary/Critical Care 3. Dr. Wale Wu = Cardiology. 4. antibiotic=linezolid; S/P vancomycin and cefepime. 5. Admit to droplet [facility]. 6. Code status =Full Code. 7. DVT prophylaxis SCD. 8. S/P transfusion 2 units of packed RBC. 9. ID=Dr Gautam 10. Continue decadron 11. Await IVC filter placement Tariq Murphy MD Apr 20, 2020 12:52
--- NOTE | 2020-04-20 14:06 | NUR ---
CASE MANAGEMENT: REVIEW SI: COVID-19 . PNA . RECTAL BLEEDING . HEMATURIA G-J TUBE PLACEMENT TODAY T 97.1 HR 126 RR 18 BP 143/78 SAT 99% NC/4L WBC 15.1 H/H 9.4/28.5 IS: ZYVOX PO Q12HR DECADRON PO QD PROTONIX IV Q12HR D5 1/2 NS w/KCl 20MEQ Q24HR TELEMETRY UNIT STATUS DCP: PATIENT IS FROM [facility]
[2020-04-20 14:18] LABS: INR 1.1 (0.9-1.1)
--- NOTE | 2020-04-20 14:24 | Pre-Procedure Note/Attestation ---
Pre-Procedure Note/Attestation Complete Prior to Procedure Planned Procedure: not applicable Procedure Narrative: IVC filter Indications for Procedure Pre-Operative Diagnosis: DVT, contraindication to anticoagulation Attestation I attest that I discussed the nature of the procedure; its benefits; risks and complications; and alternatives (and the risks and benefits of such alternatives), prior to the procedure, with the patient (or the patient's legal pharmaceutical sales representative). I attest that, if there was a reasonable possibility of needing a blood transfusion, the patient (or the patient's legal pharmaceutical sales representative) was given the [facility] standardized written summary, pursuant to the [place] Blood Safety Act ([place] Health and Safety Code # 1645, as amended). I attest that I re-evaluated the patient just prior to the surgery and that there has been no change in the patient's H&P, except as documented below: Discussed by phone with pt's. sister Barbara Katz at [address] Roberto Carlos Elizabeth MD Apr 20, 2020 14:24
--- NOTE | 2020-04-20 16:58 | Brief Operative Note ---
Immediate Post Operative Note Operative Note Pre-op Diagnosis: DVT, contraindication to anticoagulation Procedure: IVC filter Post-op Diagnosis: same as pre-op Surgeon: Lexi Garcia Anesthesia: local Specimen: none Complications: none Fluids: none Implant(s) used?: Yes - Argon Option Elite IVC filter Roberto Carlos Garcia MD Apr 20, 2020 16:58
[2020-04-20] MEDS ORDERED: Omnipaque-300 100ml vial INJ PRN (17:15)
[2020-04-20] MEDS ORDERED: Heparin1,000 units/500ml Premix(Conc:2 units/ml) INJ PRN (17:15)
--- NOTE | 2020-04-20 18:14 | Cardiology Progress Note ---
Assessment/Plan Assessment/Plan hs of hypertension, diabetes previous CVA, COVID infection Sinus tachy (incorrect diagnosis of afib with tachycardia) hypotension, a/ hemorraghic shock vaginal bleeding. anemia s/p prbc tx pt in covid isolation exam deferred tele personally reviewed sinus no fever abx supportive care keep on tele monitoring bp seem ok has black stool hematuria addressed by dr murray remains on lmwh for dvt ppx still Subjective Subjective covid pt in soloalion PATIENT IS AAO X1. NO S/S OF PAIN OR RESPIRATORY DISTRESS NOTED AT THIS TIME. NG-TUBE IS RUNNING GLUCERNA 1.2 AT 55MLS/HR, NO RESIDUAL AND PATIENT IS TOLERATING WELL. Objective Last 24 Hour Vital Signs Date Time Temp Pulse Resp B/P (MAP) Pulse Ox O2 Delivery O2 Flow Rate FiO2 04/20/20 16:54 129 129/69 (89) 133 04/20/20 16:35 133 106/76 (86) 99 04/20/20 16:15 129 15 2.0 04/20/20 16:00 98.8 115 18 128/76 (93) 100 04/20/20 16:00 115 04/20/20 12:00 111 04/20/20 12:00 97.1 111 18 130/79 (96) 99 04/20/20 09:00 Nasal Cannula 4.0 04/20/20 08:00 98.2 121 18 134/68 (90) 98 04/20/20 08:00 126 04/20/20 04:00 126 04/20/20 04:00 99.0 119 18 139/78 (98) 99 04/20/20 00:00 99.0 108 18 143/78 (99) 100 04/20/20 00:00 104 04/19/20 21:30 99.0 04/19/20 21:00 Nasal Cannula 4.0 04/19/20 20:00 99.0 115 20 139/79 (99) 98 Intake and Output 04/19/20 04/20/20 19:00 07:00 Output Total 500 ml 1000 ml Balance -500 ml -1000 ml Output Urine Total 500 ml 1000 ml # Bowel Movements 1 Laboratory Tests Test 04/20/20 07:45 04/20/20 09:33 04/20/20 13:50 White Blood Count 15.1 K/UL (4.8-10.8) H Red Blood Count 3.28 M/UL (4.20-5.40) L Hemoglobin 9.4 G/DL (12.0-16.0) L Hematocrit 28.5 % (37.0-47.0) L Mean Corpuscular Volume 87 FL (80-99) Mean Corpuscular Hemoglobin 28.7 PG (27.0-31.0) Mean Corpuscular Hemoglobin Concent 33.0 G/DL (32.0-36.0) Red Cell Distribution Width 13.9 % (11.6-14.8) Platelet Count 321 K/UL (150-450) Mean Platelet Volume 4.9 FL (6.5-10.1) L Neutrophils (%) (Auto) % (45.0-75.0) Lymphocytes (%) (Auto) % (20.0-45.0) Monocytes (%) (Auto) % (1.0-10.0) Eosinophils (%) (Auto) % (0.0-3.0) Basophils (%) (Auto) % (0.0-2.0) Differential Total Cells Counted 100 Neutrophils % (Manual) 91 % (45-75) H Lymphocytes % (Manual) 4 % (20-45) L Monocytes % (Manual) 5 % (1-10) Eosinophils % (Manual) 0 % (0-3) Basophils % (Manual) 0 % (0-2) Band Neutrophils 0 % (0-8) Platelet Estimate Adequate Platelet Morphology Normal Red Blood Cell Morphology Normal Sodium Level 138 MMOL/L (136-145) Potassium Level 4.4 MMOL/L (3.5-5.1) Chloride Level 103 MMOL/L (98-107) Carbon Dioxide Level 29 MMOL/L (21-32) Anion Gap 6 mmol/L (5-15) Blood Urea Nitrogen 14 mg/dL (7-18) Creatinine 0.5 MG/DL (0.55-1.30) L Estimat Glomerular Filtration Rate > 60 mL/min (>60) Glucose Level 106 MG/DL (74-106) Calcium Level 8.8 MG/DL (8.5-10.1) POC Whole Blood Glucose Pending Prothrombin Time 12.1 SEC (9.30-11.50) H Prothromb Time International Ratio 1.1 (0.9-1.1) Activated Partial Thromboplast Time 27 SEC (23-33) Microbiology Date/Time Source Procedure Growth Status 04/20/20 12:50 Nasopharynx SARS-CoV-2 RdRp Gene Assay - Final Complete Objective exam deferred as in isolation with active covid infection Wale Wu MD Apr 20, 2020 18:14
--- NOTE | 2020-04-20 18:43 | NUR ---
NURSE NOTES: IVC PLACEMENT PROCEDURE COMPLETED. SITE OF IVC IS ON RIGHT NECK, CLEAN WITH NO S/S OF BLEEDING OR INFECTION NOTED. PATIENT IS IN STABLE CONDITION. WILL CONTINUE TO MONITOR.
--- NOTE | 2020-04-20 18:45 | NUR ---
NURSE NOTES: G-TUBE FEEDING RESTARTED, AT THE GOAL OF 55CC/HR. NO RESIDUAL AT THIS TIME. PATIENT IS TOLERATING WELL. WILL CONTINUE TO MONITOR.
--- NOTE | 2020-04-20 19:30 | NUR ---
NURSE HAND-OFF REPORT: Important Events on Shift:IVC FILTER PLACEMENT Patient Status: Diet: Pending Orders: Pending Results/Labs: Pending MD notification: Latest Vital Signs: Temperature 98.8 , Pulse 133 , B/P 129 /69 , Respiratory Rate 15 , O2 SAT 99 , Nasal Cannula, O2 Flow Rate 2.0 . Vital Sign Comment: EKG Rhythm: Sinus Tachycardia Rhythm change?: N MD Notified?: N - MD Response: Latest Ortega Fall Score: 55 Fall Risk: High Risk Safety Measures: Call light Within Reach, Bed Alarm Zone 1, Side Rails Side Rails x2, Bed position Low and Locked. Fall Precautions: Yellow Socks Yellow Gown Door Sign Patient Fall Education Report given to .
--- NOTE | 2020-04-20 19:31 | NUR ---
NURSE NOTES: Patient in stable condition, alert and oriented to baseline (alert and orientedx1), responsive to verbal and tactile stimuli, breathing even and unlabored, nasal cannula on 3L, no SOB, no aspiration noted, head of bed 45 degrees, tolerating glucerna 1.2 at 55mL/h. No bleeding or hematoma at the right side of the neck where the IVC filter was placed, abdominal binder in place and secured, bilateral soft wrist restraints on, circulation +2 bilaterally, no redness, no pain noted. Bed in lowest and locked position, bed alarm on, two bed side rails up, room clear of clutter, p200 mattress on and working, heels floated, right leg swollen. Addendum: 04/20/20 at 2014 by Joelle Nuñez RN No IV access anywhere, attempting to place an IV now.
--- NOTE | 2020-04-20 20:26 | Diagnostic Imaging Report ---
Indications: Deep venous thrombosis, contraindication to anticoagulation Technique: Case discussed with referring physician Dr. Buitrago preprocedure. Informed consent obtained prior to commencement of the procedure from patient's sister by phone. Prior CT scan reviewed, and demonstrates no caval anomalies . Total sterile technique, including sterile probe cover and sterile gel, sterile gloves, hand hygiene, hat, mask,, sterile gown, large sterile drape, and preparation with 2% chlorhexidine utilized. Local anesthesia with 1% lidocaine. Ultrasound reveals patent compressible right internal jugular vein. Under real-time ultrasound guidance, puncture right internal jugular vein, passage of a guidewire, into the inferior vena cava, , over which was passed a pigtail marker catheter. This was directed into the left common iliac vein, and a limited iliac venogram performed using hand injection of contrast. Catheter was then withdrawn to the level of the iliac venous confluence.. An inferior venacavogram performed, using machine injection of contrast. The images were reviewed. The position of the renal veins was determined. The catheter was then exchanged for the introducer assembly of the Option Elite filter The introducer assembly was advanced further into the inferior vena cava over a guidewire, and the guidewire and dilator were removed. The filter was passed into the into the sheath. It was then positioned into the appropriate position. The filter was then deployed by unsheathing it. The filter introducer was removed, and a followup inferior venacavogram was performed using hand injection of contrast through the sheath. The filter position was deemed acceptable. The sheath was removed. Pressure held on the right neck until hemostasis was achieved. The patient tolerated procedure well, without immediate complication. Total fluoroscopy time 189.9 minutes Total dose area product [id number] [id number] Total number of images-4 Comparison: none. Findings:Left iliac venogram demonstrates no evidence of caval anomaly. Inferior venacavogram demonstrates normal caliber inferior vena cava. Single renal veins. No intracaval thrombus. However, thrombus is seen filling the right common iliac vein and protruding slightly into the iliac venous confluence. Completion inferior venacavogram demonstrates satisfactory filter position, no significant tilt.. Impression: Successful placement of infrarenal inferior vena cava filter, as above. Note that per discussion with referring physician Dr. Buitrago, a permanent IVC filter was indicated. The filter utilized May be utilized as a permanent or a removable filter so can be removed if such should be indicated in the future
--- NOTE | 2020-04-20 21:00 | NUR ---
NURSE NOTES: Was able to insert a 24g IV on left forearm. Flushing and patent.
[2020-04-20] MEDS: Miralax 17gm pkt ORAL SCH (21:05)
[2020-04-20] MEDS: Dyna-Hex 2% Top Sol 2oz TOPIC SCH (21:05)
--- NOTE | 2020-04-20 22:32 | NUR ---
NURSE NOTES: IV infiltrated and not working. Discontinued and reported to charge nurse for Larisa to start an IV as soon as possible.
--- NOTE | 2020-04-20 23:00 | NUR ---
NURSE NOTES: Residual in GJ-tube was 140mL, no aspiration noted, stopped the feeding, HOB at 45 degrees. Will continue to monitor, patient responsive to tactile and verbal stimuli, no changes in baseline.
[2020-04-21] VITALS (7 sets, daily range): BP systolic 98–132; BP diastolic 55–72
--- NOTE | 2020-04-21 | NUR ---
NURSE NOTES: Unable to obtain an IV access at this tie despite multiple attempts to do so.
--- NOTE | 2020-04-21 | NUR ---
NURSE NOTES: Resumed patient feeding at 20mL/h. Will assess tolerance.
--- NOTE | 2020-04-21 01:00 | NUR ---
NURSE NOTES: Patient tolerating feeding well at this time.
[2020-04-21] MEDS: NovoLOG Insulin Flexpen SUBQ SCH ×4 (06:00→18:00)
[2020-04-21] MEDS: D5 1/2NS w/KCl 20mEq 1,000 ML IV SCH ×3 (07:00→23:26)
[2020-04-21 07:18] LABS: BASOPHILS % (AUTO) 4.2 % (0.0-2.0); EOSINOPHILS % (AUTO) 0.1 % (0.0-3.0); HEMATOCRIT 23.6 % (37.0-47.0); LYMPHOCYTES % (AUTO) 7.2 % (20.0-45.0); MEAN CORPUSCULAR VOLUME 85 FL (80-99); MONOCYTES % (AUTO) 8.2 % (1.0-10.0); NEUTROPHILS % (AUTO) 80.3 % (45.0-75.0); PLATELET COUNT 278 K/UL (150-450); RED BLOOD COUNT 2.76 M/UL (4.20-5.40); RED CELL DISTRIBUTION WIDTH 13.7 % (11.6-14.8); WHITE BLOOD COUNT 13.8 K/UL (4.8-10.8)
--- NOTE | 2020-04-21 07:55 | NUR ---
NURSE HAND-OFF REPORT: Important Events on Shift: Patient has no IV access despite many attempts to place an IV. Endorsed to VARUN Ayers that an EJ should be placed. Patient Status: full code, stable Diet: cardiac Pending Orders: Pending Results/Labs: Pending MD notification: Latest Vital Signs: Temperature 98.8 , Pulse 110 , B/P 132 /61 , Respiratory Rate 18 , O2 SAT 95 , Nasal Cannula, O2 Flow Rate 3.0 . Vital Sign Comment: EKG Rhythm: Sinus Tachycardia Rhythm change?: N MD Notified?: N - MD Response: Latest Ortega Fall Score: 55 Fall Risk: High Risk Safety Measures: Call light Within Reach, Bed Alarm Zone 1, Side Rails Side Rails x2, Bed position Low and Locked. Fall Precautions: Yellow Socks Yellow Gown Door Sign Patient Fall Education Report given to VARUN Ayers.
--- NOTE | 2020-04-21 07:57 | NUR ---
NURSE NOTES: Received report from Joelle/RN. Patient in bed, lying semi-fowlers. On 3L nasal cannula, no distress or SOB noted. Running Glucerna 1.2 at 10lm/hr. No IV access present at this moment. Call light within reach, encourage to use when needed. Bed in the lowest position and locked. Side rails up X3. Will continue plan of care.
--- NOTE | 2020-04-21 08:14 | Urology Progress Note ---
Assessment/Plan Status: stable, unchanged Assessment/Plan: 1. Gross hematuria. 2. UTI. 3. Proteinuria. 4. Urinary retention. 5. Probable neurogenic bladder. 6. Probable cystitis. 7. Possible adrenal adenoma. 8. Acute kidney injury history, which is improved. 9. Sepsis history. monitor clinically mcmanus hand irrigated and do PRN will consider larger mcmanus or CBI if needed abx as ordered on ASA, lovenox IVC filter placed monitor h/h renal fxn stable cysto at some point electively Subjective Allergies: Coded Allergies: No Known Allergies (Unverified , 03/11/19) Subjective all noted, s/p IVC filter 04/20 Objective Last 24 Hour Vital Signs Date Time Temp Pulse Resp B/P (MAP) Pulse Ox O2 Delivery O2 Flow Rate FiO2 04/21/20 04:00 98.8 110 18 132/61 (84) 95 04/21/20 04:00 110 04/21/20 01:00 115/69 (84) 04/21/20 00:00 103 04/21/20 00:00 98.6 103 18 98/66 (77) 96 04/20/20 21:00 Nasal Cannula 3.0 04/20/20 20:00 116 04/20/20 20:00 98.9 111 18 116/78 (91) 99 04/20/20 16:54 129 129/69 (89) 133 04/20/20 16:35 133 106/76 (86) 99 04/20/20 16:15 129 15 2.0 04/20/20 16:00 98.8 115 18 128/76 (93) 100 04/20/20 16:00 115 04/20/20 12:00 111 04/20/20 12:00 97.1 111 18 130/79 (96) 99 04/20/20 09:00 Nasal Cannula 4.0 Intake and Output 04/20/20 04/21/20 19:00 07:00 Output Total 750 ml 900 ml Balance -750 ml -900 ml Output Urine Total 750 ml 900 ml Microbiology Date/Time Source Procedure Growth Status 04/20/20 12:50 Nasopharynx SARS-CoV-2 RdRp Gene Assay - Final Complete 04/12/20 19:30 Blood Blood Culture - Final NO GROWTH AFTER 5 DAYS Complete 04/09/20 08:00 Urine,Clean Catch Urine Culture - Final Enterococcus Faecium - Vre Complete 04/08/20 15:55 Rectum VRE Culture - Final Enterococcus Faecium - Vre Complete Current Medications Medications (Trade) Dose Ordered Sig/Jere Route PRN Reason Start Time Stop Time Status Last Admin Dose Admin Acetaminophen (Tylenol) 650 mg Q4H PRN ORAL fever 04/08/20 19:00 05/08/20 18:59 04/19/20 20:57 Ascorbic Acid (Vitamin C) 500 mg TWICE A DAY ORAL 04/14/20 18:00 05/14/20 17:59 04/20/20 17:47 Aspirin (ASA) 81 mg DAILY NG 04/18/20 18:45 06/02/20 18:44 04/20/20 09:04 Chlorhexidine Gluconate (Geno-Hex 2%) 1 applic DAILY@2000 TOPIC 04/08/20 20:00 07/07/20 19:59 04/20/20 21:05 Dexamethasone (Decadron) 6 mg DAILY ORAL 04/12/20 15:15 04/21/20 09:01 04/20/20 09:07 Dextrose (Dextrose 50%) 25 ml Q30M PRN IV Hypoglycemia 04/17/20 12:00 07/16/20 11:59 Dextrose (Dextrose 50%) 50 ml Q30M PRN IV Hypoglycemia 04/17/20 12:00 07/16/20 11:59 Dextrose/ Electrolytes 1,000 ml @ 75 mls/hr [id number] IV 04/08/20 22:30 05/08/20 22:29 04/19/20 14:59 Enoxaparin Sodium (Lovenox) 40 mg DAILY SUBQ 04/14/20 20:00 07/13/20 19:59 04/20/20 09:08 Insulin Aspart (NovoLOG) Q6H SUBQ 04/17/20 12:00 07/16/20 11:59 Lidocaine HCl (Xylocaine 1% 30ml) 30 ml NOW PRN INJ Radiology Procedure 04/20/20 09:30 04/23/20 09:29 Linezolid (Zyvox) 600 mg EVERY 12 HOURS ORAL 04/20/20 21:00 04/25/20 20:59 04/20/20 21:06 Metoprolol Tartrate (Lopressor) 5 mg Q1H PRN IVP spb more than 120 04/08/20 19:00 07/07/20 18:59 Multivitamins (Multivitamins) 1 tab DAILY ORAL 04/15/20 09:00 05/15/20 08:59 04/20/20 09:05 Ondansetron HCl (Zofran) 4 mg Q6H PRN IVP Nausea & Vomiting 04/08/20 19:00 05/08/20 18:59 Pantoprazole (Protonix) 40 mg EVERY 12 HOURS IVP 04/10/20 21:00 05/10/20 20:59 04/20/20 21:05 Polyethylene Glycol (Miralax) 17 gm BEDTIME ORAL 04/09/20 21:00 05/09/20 20:59 04/20/20 21:05 Polyethylene Glycol (Miralax) 17 gm DAILYPRN PRN ORAL Constipation 04/08/20 19:00 05/08/20 18:59 Sodium Bicarbonate (Sodium Bicarbonate 4%) 1 ml NOW PRN IV Radiology Procedure 04/20/20 09:30 04/23/20 09:29 Zinc Sulfate (Zinc Sulfate) 220 mg DAILY ORAL 04/15/20 09:00 04/25/20 08:59 04/20/20 09:05 Laboratory Tests 04/20/20 09:33: POC Whole Blood Glucose [Pending] 04/20/20 13:50: Prothrombin Time 12.1H, Prothromb Time International Ratio 1.1, Activated Partial Thromboplast Time 27 04/20/20 17:50: POC Whole Blood Glucose [Pending] 04/21/20 00:47: POC Whole Blood Glucose 116H 04/21/20 06:53: White Blood Count 13.8H, Red Blood Count 2.76L, Hemoglobin 8.0L, Hematocrit 23.6L, Mean Corpuscular Volume 85, Mean Corpuscular Hemoglobin 28.9, Mean Corpuscular Hemoglobin Concent 33.8, Red Cell Distribution Width 13.7, Platelet Count 278, Mean Platelet Volume 4.7L, Neutrophils (%) (Auto) 80.3H, Lymphocytes (%) (Auto) 7.2L, Monocytes (%) (Auto) 8.2, Eosinophils (%) (Auto) 0.1, Basophils (%) (Auto) 4.2H, Sodium Level [Pending], Potassium Level [Pending], Chloride Level [Pending], Carbon Dioxide Level [Pending], Blood Urea Nitrogen [Pending], Creatinine [Pending], Estimat Glomerular Filtration Rate [Pending], Glucose Level [Pending], Calcium Level [Pending] Height (Feet): 5 Height (Inches): 5.00 Weight (Pounds): 201 Objective exam stable mcmanus indwelling urine blood-tinged/payam LE duplex (04/19) (+) DVT Bong Valerio MD Apr 21, 2020 08:14
[2020-04-21] MEDS: Pantoprazole Inj IVP SCH ×2 (09:00→21:00)
--- NOTE | 2020-04-21 09:07 | Nephrology Progress Note ---
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 Renal parameters stable. Continue per consultants. April 20: Lab reviewed. Renal parameters stable. April 19: Labs reviewed. Electrolytes and renal parameters stable. April 18: Labs reviewed. Electrolytes and renal parameters stable. April 17: Lab reviewed. Stable from renal standpoint of view April 16: Labs reviewed. Remains stable from renal standpoint of view. Continue per consultants. April 15: Labs reviewed. Electrolyte abnormalities addressed. Continue as is. April 14: Labs reviewed. Low phosphorus and low magnesium corrected. Continue per consultants. Blood pressure remains stable. April 13: Electrolytes within normal limit. Renal parameters within normal limit. Continue per consultants. April 12: Electrolyte abnormalities noted and addressed. Continue per consultants Magnesium IV supplement as needed Potassium IV supplement as needed Phosphorus IV supplement as needed Monitor electrolytes Monitor hemoglobin hematocrit IV Protonix Adjust IV fluid Antibiotics per consultants Subjective ROS Limited/Unobtainable: Yes Constitutional: Reports: malaise Objective Objective Last 24 Hour Vital Signs Date Time Temp Pulse Resp B/P (MAP) Pulse Ox O2 Delivery O2 Flow Rate FiO2 04/21/20 04:00 98.8 110 18 132/61 (84) 95 04/21/20 04:00 110 04/21/20 01:00 115/69 (84) 04/21/20 00:00 103 04/21/20 00:00 98.6 103 18 98/66 (77) 96 04/20/20 21:00 Nasal Cannula 3.0 04/20/20 20:00 116 04/20/20 20:00 98.9 111 18 116/78 (91) 99 04/20/20 16:54 129 129/69 (89) 133 04/20/20 16:35 133 106/76 (86) 99 04/20/20 16:15 129 15 2.0 04/20/20 16:00 98.8 115 18 128/76 (93) 100 04/20/20 16:00 115 04/20/20 12:00 111 04/20/20 12:00 97.1 111 18 130/79 (96) 99 Intake and Output 04/20/20 04/21/20 19:00 07:00 Output Total 750 ml 900 ml Balance -750 ml -900 ml Output Urine Total 750 ml 900 ml Laboratory Tests 04/20/20 09:33: POC Whole Blood Glucose [Pending] 04/20/20 13:50: Prothrombin Time 12.1H, Prothromb Time International Ratio 1.1, Activated Partial Thromboplast Time 27 04/20/20 17:50: POC Whole Blood Glucose [Pending] 04/21/20 00:47: POC Whole Blood Glucose 116H 04/21/20 06:53: White Blood Count 13.8H, Red Blood Count 2.76L, Hemoglobin 8.0L, Hematocrit 23.6L, Mean Corpuscular Volume 85, Mean Corpuscular Hemoglobin 28.9, Mean Co rpuscular Hemoglobin Concent 33.8, Red Cell Distribution Width 13.7, Platelet Count 278, Mean Platelet Volume 4.7L, Neutrophils (%) (Auto) 80.3H, Lymphocytes (%) (Auto) 7.2L, Monocytes (%) (Auto) 8.2, Eosinophils (%) (Auto) 0.1, Basophils (%) (Auto) 4.2H, Sodium Level [Pending], Potassium Level [Pending], Chloride Level [Pending], Carbon Dioxide Level [Pending], Blood Urea Nitrogen [Pending], Creatinine [Pending], Estimat Glomerular Filtration Rate [Pending], Glucose Level [Pending], Calcium Level [Pending] Height (Feet): 5 Height (Inches): 5.00 Weight (Pounds): 201 General Appearance: no apparent distress Cardiovascular: tachycardia Respiratory/Chest: decreased breath sounds Abdomen: distended Objective No change Steven Edwards MD Apr 21, 2020 09:07
[2020-04-21 09:19] LABS: ANION GAP 7 mmol/L (5-15); BLOOD UREA NITROGEN 9 mg/dL (7-18); CALCIUM 8.7 MG/DL (8.5-10.1); CARBON DIOXIDE 29 MMOL/L (21-32); CHLORIDE 102 MMOL/L (98-107); CREATININE 0.2 MG/DL (0.55-1.30); POTASSIUM 4.3 MMOL/L (3.5-5.1); SODIUM 137 MMOL/L (136-145)
[2020-04-21] MEDS: Ascorbic Acid 500mg tab ORAL SCH ×2 (09:34→17:33)
[2020-04-21] MEDS: Aspirin Baby 81mg NG SCH (09:35)
[2020-04-21] MEDS: Zinc Sulfate 220mg ORAL SCH (09:35)
[2020-04-21] MEDS: Enoxaparin 40mg Inj SUBQ SCH (09:36)
[2020-04-21 09:38] LABS: ALANINE AMINOTRANSFERASE 15 U/L (12-78); ALBUMIN 2.2 G/DL (3.4-5.0); ALKALINE PHOSPHATASE 77 U/L (46-116); ASPARTATE AMINO TRANSFERASE 23 U/L (15-37); BILIRUBIN,DIRECT 0.2 MG/DL (0.0-0.3); BILIRUBIN,TOTAL 0.5 MG/DL (0.2-1.0); PHOSPHORUS 3.7 MG/DL (2.5-4.9)
--- NOTE | 2020-04-21 10:19 | Infectious Diseases Prog Note ---
Assessment/Plan Assessment: Right Fem DVT US 04/19/20 - Com. Fem. DVT Septic Shock- SP COVID19 pneumonia- on 2l NC> hypoxic on ABG, now at 4L NC -04/12 CXR: Bilateral infiltrates, developing since 04/08/2020, likely on the basis of pneumonia. -04/08 CXR: Mild diffuse peribronchial thickening in the absence of airspace consolidation, which is nonspecific but can be seen with infectious/inflammatory airways disease in the appropriate clinical context. rapid covid pcr + UTI -04/09 ucx >100k VRE (E. faecium); S linezolid -04/08 u/a wbc tnct, nit neg, leuk +3; ucx <10k P, mirabilis (S Ceftriaxone, Zosyn), >100k gamma hemolytic strep Gram positive bacteremia- likely contaminant -04/08 Bcx 1/4 S. hominis, 2/4 S. auricularis ; 04/10 Bcx NGTD Low grade fever, SP No leukocytosis Vaginal bleeding -CT abd/p wo: Study limited due to lack of IV contrast. Pulmonary findings could represent multifocal pneumonia or aspiration.These findings could also represent viral pneumonia, although this is not highly specific pattern. Prominent rectal stool burden with mild wall thickening could represent stercoral colitis in the proper context. Otherwise, diffuse large colonic stool burden could be a cause for pain. Left superior renal pole ill-defined mild hyperdensity could be a manifestation of chronic medical renal disease in the proper context. Consider outpatient CT adrenal glands to further evaluate indeterminate left adrenal 1.2 cm nodularity. Calcified fibroid uterus. Appendectomy. ROSA MARIA, SP AST elevation; improving inoperable endometrial adenocarcinoma sp brachytherapy 12/16/19 HTN CVA/TIA hx of DVT MDD HLD dysphagia Afib Dm2 chronic lacunar infarction w/ b/l ganglia and king radiata and L parietal lobe stroke hx of UTI [place] resident( [facility]) Plan: -Cont PO Zyvox #10/14 for both GPC bacteremia and VRE UTI -Cont dex 6mg daily - 04/17/20 SP remdesivir #5/5 -04/14 SP Cefepime #7/7 for Proteus UTI -04/12 SP IV Vancomycin #5 -f/u cx -Monitor CBC/CMP, temperatures -COVID19 isolation Thank you for this consultation. Will continue to follow along with you. Subjective Allergies: Coded Allergies: No Known Allergies (Unverified , 03/11/19) Afebrile Leukocytosis mild and persistent DVT Right fem per US yesterday Stable on 3L NC Objective Last 24 Hour Vital Signs Date Time Temp Pulse Resp B/P (MAP) Pulse Ox O2 Delivery O2 Flow Rate FiO2 04/21/20 08:00 98.1 104 19 101/58 (72) 97 04/21/20 04:00 98.8 110 18 132/61 (84) 95 04/21/20 04:00 110 04/21/20 01:00 115/69 (84) 04/21/20 00:00 103 04/21/20 00:00 98.6 103 18 98/66 (77) 96 04/20/20 21:00 Nasal Cannula 3.0 04/20/20 20:00 116 04/20/20 20:00 98.9 111 18 116/78 (91) 99 04/20/20 16:54 129 129/69 (89) 133 04/20/20 16:35 133 106/76 (86) 99 04/20/20 16:15 129 15 2.0 04/20/20 16:00 98.8 115 18 128/76 (93) 100 04/20/20 16:00 115 04/20/20 12:00 111 04/20/20 12:00 97.1 111 18 130/79 (96) 99 Height (Feet): 5 Height (Inches): 5.00 Weight (Pounds): 201 GENERAL: NAD on 3L NC HEENT: NCAT, MMM, EOMI LUNGS: Equal rise and fall of chest B/L no accessory muscle use ABDOMEN: Soft, nondistended Microbiology Date/Time Source Procedure Growth Status 04/20/20 12:50 Nasopharynx SARS-CoV-2 RdRp Gene Assay - Final Complete Laboratory Tests Test 04/20/20 13:50 04/20/20 17:50 04/21/20 00:47 04/21/20 06:53 Prothrombin Time 12.1 SEC (9.30-11.50) H Prothromb Time International Ratio 1.1 (0.9-1.1) Activated Partial Thromboplast Time 27 SEC (23-33) POC Whole Blood Glucose Pending 116 MG/DL (74-106) H White Blood Count 13.8 K/UL (4.8-10.8) H Red Blood Count 2.76 M/UL (4.20-5.40) L Hemoglobin 8.0 G/DL (12.0-16.0) L Hematocrit 23.6 % (37.0-47.0) L Mean Corpuscular Volume 85 FL (80-99) Mean Corpuscular Hemoglobin 28.9 PG (27.0-31.0) Mean Corpuscular Hemoglobin Concent 33.8 G/DL (32.0-36.0) Red Cell Distribution Width 13.7 % (11.6-14.8) Platelet Count 278 K/UL (150-450) Mean Platelet Volume 4.7 FL (6.5-10.1) L Neutrophils (%) (Auto) 80.3 % (45.0-75.0) H Lymphocytes (%) (Auto) 7.2 % (20.0-45.0) L Monocytes (%) (Auto) 8.2 % (1.0-10.0) Eosinophils (%) (Auto) 0.1 % (0.0-3.0) Basophils (%) (Auto) 4.2 % (0.0-2.0) H Sodium Level 137 MMOL/L (136-145) Potassium Level 4.3 MMOL/L (3.5-5.1) Chloride Level 102 MMOL/L (98-107) Carbon Dioxide Level 29 MMOL/L (21-32) Anion Gap 7 mmol/L (5-15) Blood Urea Nitrogen 9 mg/dL (7-18) Creatinine 0.2 MG/DL (0.55-1.30) #L Estimat Glomerular Filtration Rate > 60 mL/min (>60) Glucose Level 107 MG/DL (74-106) H Calcium Level 8.7 MG/DL (8.5-10.1) Phosphorus Level 3.7 MG/DL (2.5-4.9) Magnesium Level 1.9 MG/DL (1.8-2.4) Total Bilirubin 0.5 MG/DL (0.2-1.0) Direct Bilirubin 0.2 MG/DL (0.0-0.3) Aspartate Amino Transf (AST/SGOT) 23 U/L (15-37) Alanine Aminotransferase (ALT/SGPT) 15 U/L (12-78) Alkaline Phosphatase 77 U/L (46-116) Total Protein 5.1 G/DL (6.4-8.2) L Albumin 2.2 G/DL (3.4-5.0) L Current Medications Medications (Trade) Dose Ordered Sig/Jere Route PRN Reason Start Time Stop Time Status Last Admin Dose Admin Acetaminophen (Tylenol) 650 mg Q4H PRN ORAL fever 04/08/20 19:00 05/08/20 18:59 04/19/20 20:57 Ascorbic Acid (Vitamin C) 500 mg TWICE A DAY ORAL 04/14/20 18:00 05/14/20 17:59 04/21/20 09:34 Aspirin (ASA) 81 mg DAILY NG 04/18/20 18:45 06/02/20 18:44 04/21/20 09:35 Chlorhexidine Gluconate (Geno-Hex 2%) 1 applic DAILY@2000 TOPIC 04/08/20 20:00 07/07/20 19:59 04/20/20 21:05 Dextrose (Dextrose 50%) 25 ml Q30M PRN IV Hypoglycemia 04/17/20 12:00 07/16/20 11:59 Dextrose (Dextrose 50%) 50 ml Q30M PRN IV Hypoglycemia 04/17/20 12:00 07/16/20 11:59 Dextrose/ Electrolytes 1,000 ml @ 75 mls/hr [id number] IV 04/08/20 22:30 05/08/20 22:29 04/19/20 14:59 Enoxaparin Sodium (Lovenox) 40 mg DAILY SUBQ 04/14/20 20:00 07/13/20 19:59 04/21/20 09:36 Insulin Aspart (NovoLOG) Q6H SUBQ 04/17/20 12:00 07/16/20 11:59 Lidocaine HCl (Xylocaine 1% 30ml) 30 ml NOW PRN INJ Radiology Procedure 04/20/20 09:30 04/23/20 09:29 Linezolid (Zyvox) 600 mg EVERY 12 HOURS ORAL 04/20/20 21:00 04/25/20 20:59 04/21/20 09:35 Metoprolol Tartrate (Lopressor) 5 mg Q1H PRN IVP spb more than 120 04/08/20 19:00 07/07/20 18:59 Multivitamins (Multivitamins) 1 tab DAILY ORAL 04/15/20 09:00 05/15/20 08:59 04/21/20 09:35 Ondansetron HCl (Zofran) 4 mg Q6H PRN IVP Nausea & Vomiting 04/08/20 19:00 05/08/20 18:59 Pantoprazole (Protonix) 40 mg EVERY 12 HOURS IVP 04/10/20 21:00 05/10/20 20:59 04/20/20 21:05 Polyethylene Glycol (Miralax) 17 gm BEDTIME ORAL 04/09/20 21:00 05/09/20 20:59 04/20/20 21:05 Polyethylene Glycol (Miralax) 17 gm DAILYPRN PRN ORAL Constipation 04/08/20 19:00 05/08/20 18:59 Zinc Sulfate (Zinc Sulfate) 220 mg DAILY ORAL 04/15/20 09:00 04/25/20 08:59 04/21/20 09:35 Prabhu Jacques MD Apr 21, 2020 10:19
--- NOTE | 2020-04-21 11:00 | NUR ---
NURSE NOTES: Pt has no IV acces, Dr Jacques aware.
--- NOTE | 2020-04-21 11:14 | Pulmonology Progress Note ---
Subjective ROS Limited/Unobtainable: Yes Constitutional: Reports: no symptoms, fatigue HEENT: Repors: no symptoms Allergies: Coded Allergies: No Known Allergies (Unverified , 03/11/19) Objective Last 24 Hour Vital Signs Date Time Temp Pulse Resp B/P (MAP) Pulse Ox O2 Delivery O2 Flow Rate FiO2 04/21/20 09:00 Nasal Cannula 3.0 04/21/20 08:00 92 04/21/20 08:00 98.1 104 19 101/58 (72) 97 04/21/20 04:00 98.8 110 18 132/61 (84) 95 04/21/20 04:00 110 04/21/20 01:00 115/69 (84) 04/21/20 00:00 103 04/21/20 00:00 98.6 103 18 98/66 (77) 96 04/20/20 21:00 Nasal Cannula 3.0 04/20/20 20:00 116 04/20/20 20:00 98.9 111 18 116/78 (91) 99 04/20/20 16:54 129 129/69 (89) 133 04/20/20 16:35 133 106/76 (86) 99 04/20/20 16:15 129 15 2.0 04/20/20 16:00 98.8 115 18 128/76 (93) 100 04/20/20 16:00 115 04/20/20 12:00 111 04/20/20 12:00 97.1 111 18 130/79 (96) 99 Intake and Output 04/20/20 04/21/20 19:00 07:00 Output Total 750 ml 900 ml Balance -750 ml -900 ml Output Urine Total 750 ml 900 ml General Appearance: WD/WN HEENT: normocephalic, atraumatic Respiratory: chest wall non-tender, lungs clear Breasts: no masses Cardiovascular: normal peripheral pulses Abdomen: normal bowel sounds, soft, non tender Extremities: no cyanosis Neurologic: sparker and patcher II-XII 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, alert Lymphatic: no neck adenopathy Microbiology Date/Time Source Procedure Growth Status 04/20/20 12:50 Nasopharynx SARS-CoV-2 RdRp Gene Assay - Final Complete Laboratory Tests 04/20/20 13:50: Prothrombin Time 12.1H, Prothromb Time International Ratio 1.1, Activated Partial Thromboplast Time 27 04/20/20 17:50: POC Whole Blood Glucose [Pending] 04/21/20 00:47: POC Whole Blood Glucose 116H 04/21/20 06:53: White Blood Count 13.8H, Red Blood Count 2.76L, Hemoglobin 8.0L, Hematocrit 23.6L, Mean Corpuscular Volume 85, Mean Corpuscular Hemoglobin 28.9, Mean Corpuscular Hemoglobin Concent 33.8, Red Cell Distribution Width 13.7, Platelet Count 278, Mean Platelet Volume 4.7L, Neutrophils (%) (Auto) 80.3H, Lymphocytes (%) (Auto) 7.2L, Monocytes (%) (Auto) 8.2, Eosinophils (%) (Auto) 0.1, Basophils (%) (Auto) 4.2H, Sodium Level 137, Potassium Level 4.3, Chloride Level 102, Carbon Dioxide Level 29, Anion Gap 7, Blood Urea Nitrogen 9, Creatinine 0.2#L, Estimat Glomerular Filtration Rate > 60, Glucose Level 107H, Calcium Level 8.7, Phosphorus Level 3.7, Magnesium Level 1.9, Total Bilirubin 0.5, Direct Bilirubin 0.2, Aspartate Amino Transf (AST/SGOT) 23, Alanine Aminotransferase (ALT/SGPT) 15, Alkaline Phosphatase 77, Total Protein 5.1L, Albumin 2.2L Current Medications Medications (Trade) Dose Ordered Sig/Jere Route PRN Reason Start Time Stop Time Status Last Admin Dose Admin Acetaminophen (Tylenol) 650 mg Q4H PRN ORAL fever 04/08/20 19:00 05/08/20 18:59 04/19/20 20:57 Ascorbic Acid (Vitamin C) 500 mg TWICE A DAY ORAL 04/14/20 18:00 05/14/20 17:59 04/21/20 09:34 Aspirin (ASA) 81 mg DAILY NG 04/18/20 18:45 06/02/20 18:44 04/21/20 09:35 Chlorhexidine Gluconate (Geno-Hex 2%) 1 applic DAILY@1999 TOPIC 04/08/20 20:00 07/07/20 19:59 04/20/20 21:05 Dextrose (Dextrose 50%) 25 ml Q30M PRN IV Hypoglycemia 04/17/20 12:00 07/16/20 11:59 Dextrose (Dextrose 50%) 50 ml Q30M PRN IV Hypoglycemia 04/17/20 12:00 07/16/20 11:59 Dextrose/ Electrolytes 1,000 ml @ 75 mls/hr [id number] IV 04/08/20 22:30 05/08/20 22:29 04/19/20 14:59 Enoxaparin Sodium (Lovenox) 40 mg DAILY SUBQ 04/14/20 20:00 07/13/20 19:59 04/21/20 09:36 Insulin Aspart (NovoLOG) Q6H SUBQ 04/17/20 12:00 07/16/20 11:59 Lidocaine HCl (Xylocaine 1% 30ml) 30 ml NOW PRN INJ Radiology Procedure 04/20/20 09:30 04/23/20 09:29 Linezolid (Zyvox) 600 mg EVERY 12 HOURS ORAL 04/20/20 21:00 04/25/20 20:59 04/21/20 09:35 Metoprolol Tartrate (Lopressor) 5 mg Q1H PRN IVP spb more than 120 04/08/20 19:00 07/07/20 18:59 Multivitamins (Multivitamins) 1 tab DAILY ORAL 04/15/20 09:00 05/15/20 08:59 04/21/20 09:35 Ondansetron HCl (Zofran) 4 mg Q6H PRN IVP Nausea & Vomiting 04/08/20 19:00 05/08/20 18:59 Pantoprazole (Protonix) 40 mg EVERY 12 HOURS IVP 04/10/20 21:00 05/10/20 20:59 04/20/20 21:05 Polyethylene Glycol (Miralax) 17 gm BEDTIME ORAL 04/09/20 21:00 05/09/20 20:59 04/20/20 21:05 Polyethylene Glycol (Miralax) 17 gm DAILYPRN PRN ORAL Constipation 04/08/20 19:00 05/08/20 18:59 Zinc Sulfate (Zinc Sulfate) 220 mg DAILY ORAL 04/15/20 09:00 04/25/20 08:59 04/21/20 09:35 Assessment/Plan Problems: (1) Hemorrhagic shock (2) Sepsis (3) Bacteremia (4) History of CVA (cerebrovascular accident) (5) Rectal bleeding (6) Hematuria Assessment/Plan ivc filter was place yesterday wbc still high on Zyvox f/u ID recommendations check electrolytes GI note appreciated continue Decadron dvt prophylaxis. Marina Buitrago MD Apr 21, 2020 11:14
--- NOTE | 2020-04-21 11:41 | General Progress Note ---
Subjective ROS Limited/Unobtainable: No Allergies: Coded Allergies: No Known Allergies (Unverified , 03/11/19) Objective Last 24 Hour Vital Signs Date Time Temp Pulse Resp B/P (MAP) Pulse Ox O2 Delivery O2 Flow Rate FiO2 04/21/20 09:00 Nasal Cannula 3.0 04/21/20 08:00 92 04/21/20 08:00 98.1 104 19 101/58 (72) 97 04/21/20 04:00 98.8 110 18 132/61 (84) 95 04/21/20 04:00 110 04/21/20 01:00 115/69 (84) 04/21/20 00:00 103 04/21/20 00:00 98.6 103 18 98/66 (77) 96 04/20/20 21:00 Nasal Cannula 3.0 04/20/20 20:00 116 04/20/20 20:00 98.9 111 18 116/78 (91) 99 04/20/20 16:54 129 129/69 (89) 133 04/20/20 16:35 133 106/76 (86) 99 04/20/20 16:15 129 15 2.0 04/20/20 16:00 98.8 115 18 128/76 (93) 100 04/20/20 16:00 115 04/20/20 12:00 111 04/20/20 12:00 97.1 111 18 130/79 (96) 99 Intake and Output 04/20/20 04/21/20 19:00 07:00 Output Total 750 ml 900 ml Balance -750 ml -900 ml Output Urine Total 750 ml 900 ml Laboratory Tests 04/20/20 13:50: Prothrombin Time 12.1H, Prothromb Time International Ratio 1.1, Activated Partial Thromboplast Time 27 04/20/20 17:50: POC Whole Blood Glucose [Pending] 04/21/20 00:47: POC Whole Blood Glucose 116H 04/21/20 06:53: White Blood Count 13.8H, Red Blood Count 2.76L, Hemoglobin 8.0L, Hematocrit 23.6L, Mean Corpuscular Volume 85, Mean Corpuscular Hemoglobin 28.9, Mean Corpuscular Hemoglobin Concent 33.8, Red Cell Distribution Width 13.7, Platelet Count 278, Mean Platelet Volume 4.7L, Neutrophils (%) (Auto) 80.3H, Lymphocytes (%) (Auto) 7.2L, Monocytes (%) (Auto) 8.2, Eosinophils (%) (Auto) 0.1, Basophils (%) (Auto) 4.2H, Sodium Level 137, Potassium Level 4.3, Chloride Level 102, Carbon Dioxide Level 29, Anion Gap 7, Blood Urea Nitrogen 9, Creatinine 0.2#L, Estimat Glomerular Filtration Rate > 60, Glucose Level 107H, Calcium Level 8.7, Phosphorus Level 3.7, Magnesium Level 1.9, Total Bilirubin 0.5, Direct Bilirubin 0.2, Aspartate Amino Transf (AST/SGOT) 23, Alanine Aminotransferase (ALT/SGPT) 15, Alkaline Phosphatase 77, Total Protein 5.1L, Albumin 2.2L Height (Feet): 5 Height (Inches): 5.00 Weight (Pounds): 201 General Appearance: no apparent distress EENT: normal ENT inspection Neck: supple Cardiovascular: normal rate Respiratory/Chest: decreased breath sounds Abdomen: hypoactive bowel sounds Extremities: non-tender Assessment/Plan Status: stable, unchanged Assessment/Plan: 1. History of hypertension. 2. Diabetes. 3. CVA. 4. UTI. 5. Colitis. 6. Endometrial cancer. no recurrent gib s/p PEG GTF monitor for residuals Nima Park MD Apr 21, 2020 11:41
--- NOTE | 2020-04-21 11:49 | Surgery Progress Note ---
Surgery Progress Note Subjective Additional Comments Labs improved. Working with physical therapy. Feels weak but is trying get stronger. No nausea vomiting fever chills. Objective Last 24 Hour Vital Signs Date Time Temp Pulse Resp B/P (MAP) Pulse Ox O2 Delivery O2 Flow Rate FiO2 04/21/20 09:00 Nasal Cannula 3.0 04/21/20 08:00 92 04/21/20 08:00 98.1 104 19 101/58 (72) 97 04/21/20 04:00 98.8 110 18 132/61 (84) 95 04/21/20 04:00 110 04/21/20 01:00 115/69 (84) 04/21/20 00:00 103 04/21/20 00:00 98.6 103 18 98/66 (77) 96 04/20/20 21:00 Nasal Cannula 3.0 04/20/20 20:00 116 04/20/20 20:00 98.9 111 18 116/78 (91) 99 04/20/20 16:54 129 129/69 (89) 133 04/20/20 16:35 133 106/76 (86) 99 04/20/20 16:15 129 15 2.0 04/20/20 16:00 98.8 115 18 128/76 (93) 100 04/20/20 16:00 115 04/20/20 12:00 111 04/20/20 12:00 97.1 111 18 130/79 (96) 99 I&O Intake and Output 04/20/20 04/21/20 19:00 07:00 Output Total 750 ml 900 ml Balance -750 ml -900 ml Output Urine Total 750 ml 900 ml Cardiovascular: RSR Respiratory: clear Abdomen: soft, non-tender, present bowel sounds Extremities: no edema, no tenderness, no cyanosis Laboratory Tests Test 04/20/20 13:50 04/20/20 17:50 04/21/20 00:47 04/21/20 06:53 Prothrombin Time 12.1 SEC (9.30-11.50) H Prothromb Time International Ratio 1.1 (0.9-1.1) Activated Partial Thromboplast Time 27 SEC (23-33) POC Whole Blood Glucose Pending 116 MG/DL (74-106) H White Blood Count 13.8 K/UL (4.8-10.8) H Red Blood Count 2.76 M/UL (4.20-5.40) L Hemoglobin 8.0 G/DL (12.0-16.0) L Hematocrit 23.6 % (37.0-47.0) L Mean Corpuscular Volume 85 FL (80-99) Mean Corpuscular Hemoglobin 28.9 PG (27.0-31.0) Mean Corpuscular Hemoglobin Concent 33.8 G/DL (32.0-36.0) Red Cell Distribution Width 13.7 % (11.6-14.8) Platelet Count 278 K/UL (150-450) Mean Platelet Volume 4.7 FL (6.5-10.1) L Neutrophils (%) (Auto) 80.3 % (45.0-75.0) H Lymphocytes (%) (Auto) 7.2 % (20.0-45.0) L Monocytes (%) (Auto) 8.2 % (1.0-10.0) Eosinophils (%) (Auto) 0.1 % (0.0-3.0) Basophils (%) (Auto) 4.2 % (0.0-2.0) H Sodium Level 137 MMOL/L (136-145) Potassium Level 4.3 MMOL/L (3.5-5.1) Chloride Level 102 MMOL/L (98-107) Carbon Dioxide Level 29 MMOL/L (21-32) Anion Gap 7 mmol/L (5-15) Blood Urea Nitrogen 9 mg/dL (7-18) Creatinine 0.2 MG/DL (0.55-1.30) #L Estimat Glomerular Filtration Rate > 60 mL/min (>60) Glucose Level 107 MG/DL (74-106) H Calcium Level 8.7 MG/DL (8.5-10.1) Phosphorus Level 3.7 MG/DL (2.5-4.9) Magnesium Level 1.9 MG/DL (1.8-2.4) Total Bilirubin 0.5 MG/DL (0.2-1.0) Direct Bilirubin 0.2 MG/DL (0.0-0.3) Aspartate Amino Transf (AST/SGOT) 23 U/L (15-37) Alanine Aminotransferase (ALT/SGPT) 15 U/L (12-78) Alkaline Phosphatase 77 U/L (46-116) Total Protein 5.1 G/DL (6.4-8.2) L Albumin 2.2 G/DL (3.4-5.0) L Plan Problems: (1) Hematuria (2) Rectal bleeding Assessment & Plan: 64-year-old female identified to have rectal bleeding on admission. GI aware surgery aware no active bleeding at this time hemoglobin noted. Transfuse PRBC as needed. Pending scope consideration. passed swallow no bleeding on diet may need peg as per GI cont diet urology input appreciated mcmanus being irrigated supplements added for wound care DAILY ESTIMATED NEEDS: Needs based on Obesity, cardiac/ 67.6kg abw 22-27 kcals/kg 3086-8852 total kcals 1-1.5 g protein/kg 68-101 g total protein 25-30 mL/kg 2104-5237 total fluid mLs NUTRITION DIAGNOSIS: * Swallowing difficulty R/T dysphagia, h/o CVA, clinical condition as evidenced by seen by [facility] w/ rec for pureed moist texture w/ thin liquids. 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 CURRENT DIET:[facility] MED, pureed moist w/ thin liquids PO DIET RECOMMENDATIONS: Liberalized REGULAR w/ poor PO ([facility] MED+LOW NA w/ PO intake >50%) ADDITIONAL RECOMMENDATIONS: * Per SNF: HT=64" NE=482pgb (04/05/20) -> rec daily calibrated bedscale wt, monitor trend Possible wt loss of 68 lbs/29% in 13 months * W/ poor PO intake, add Glucerna TID w/ meals * Wound healing: Add MVI x 1, Vit C 500mg BID, ZnSO4 220mg QD x 10 days Woody (QD for now- increase to BID w/ good acceptance) added to tray * Monitor lytes, replete as needed (low k and mag) (3) Hemorrhagic shock (4) Acute CVA (cerebrovascular accident) (5) Septic shock (6) Anemia (7) Sepsis (8) Altered mental status (9) Atrial fibrillation with RVR (10) COVID-19 Assessment & Plan: ++ as per ID and pulm cxr noted (11) History of CVA (cerebrovascular accident) (12) Decubitus skin ulcer Assessment & Plan: Patient identified on admission to have a 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 apply therahoney to areas of slough. apply mositure barrier paste on the periwound. cover with optifoam dressing. change Q3D and PRN. Apply cavilon on both heels& malleoli. Cover each site with optifoam dressing. Change Q7D and PRN. DAILY ESTIMATED NEEDS: Needs based on Obesity, cardiac/ 67.6kg abw 22-27 kcals/kg 6455-7819 total kcals 1.25-1.5 g protein/kg 85-101 g total protein 25-30 mL/kg 3610-1449 total fluid mLs NUTRITION DIAGNOSIS: * Swallowing difficulty R/T dysphagia, h/o CVA, now s/p PEG placement. 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 CURRENT TF:Glucerna 1.2 @55 ENTERAL NUTRITION RECOMMENDATIONS: Glucerna 1.2 goal of 60ml/hr x24 hrs to provide 1440ml, 1728 kcal, 86g pro, 1159 ml free H2O Rec to Increase current TF to goal of 60ml/hr to meet 100% est needs Flush per MD/ HOB over 30 degrees ADDITIONAL RECOMMENDATIONS: * Per SN[facility]: HT=64" [id number] (04/05/20) -> rec daily calibrated bedscale wt, monitor trend Possible wt loss of 68 lbs/29% in 13 months * W/ poor PO intake, add Glucerna TID-now s/p PEG * Wound healing: Add MVI x 1, Vit C 500mg BID, ZnSO4 220mg QD x 10 days Woody BID * Monitor lytes, replete as needed Elian Ren Apr 21, 2020 11:49
--- NOTE | 2020-04-21 17:33 | Internal Med Progress Note ---
Subjective Date of Service: Apr 21, 2020 Physician Name Tariq Murphy Attending Physician Dewayne Mendoza MD Current Medications Medications (Trade) Dose Ordered Sig/Jere Route PRN Reason Start Time Stop Time Status Last Admin Dose Admin Acetaminophen (Tylenol) 650 mg Q4H PRN ORAL fever 04/08/20 19:00 05/08/20 18:59 04/19/20 20:57 Ascorbic Acid (Vitamin C) 500 mg TWICE A DAY ORAL 04/14/20 18:00 05/14/20 17:59 04/21/20 09:34 Aspirin (ASA) 81 mg DAILY NG 04/18/20 18:45 06/02/20 18:44 04/21/20 09:35 Chlorhexidine Gluconate (Geno-Hex 2%) 1 applic DAILY@1999 TOPIC 04/08/20 20:00 07/07/20 19:59 04/20/20 21:05 Dextrose (Dextrose 50%) 25 ml Q30M PRN IV Hypoglycemia 04/17/20 12:00 07/16/20 11:59 Dextrose (Dextrose 50%) 50 ml Q30M PRN IV Hypoglycemia 04/17/20 12:00 07/16/20 11:59 Dextrose/ Electrolytes 1,000 ml @ 75 mls/hr [id number] IV 04/08/20 22:30 05/08/20 22:29 04/19/20 14:59 Enoxaparin Sodium (Lovenox) 40 mg DAILY SUBQ 04/14/20 20:00 07/13/20 19:59 04/21/20 09:36 Insulin Aspart (NovoLOG) Q6H SUBQ 04/17/20 12:00 07/16/20 11:59 Lidocaine HCl (Xylocaine 1% 30ml) 30 ml NOW PRN INJ Radiology Procedure 04/20/20 09:30 04/23/20 09:29 Linezolid (Zyvox) 600 mg EVERY 12 HOURS ORAL 04/20/20 21:00 04/25/20 20:59 04/21/20 09:35 Metoprolol Tartrate (Lopressor) 5 mg Q1H PRN IVP spb more than 120 04/08/20 19:00 07/07/20 18:59 Multivitamins (Multivitamins) 1 tab DAILY ORAL 04/15/20 09:00 05/15/20 08:59 04/21/20 09:35 Ondansetron HCl (Zofran) 4 mg Q6H PRN IVP Nausea & Vomiting 04/08/20 19:00 05/08/20 18:59 Pantoprazole (Protonix) 40 mg EVERY 12 HOURS IVP 04/10/20 21:00 05/10/20 20:59 04/20/20 21:05 Polyethylene Glycol (Miralax) 17 gm BEDTIME ORAL 04/09/20 21:00 05/09/20 20:59 04/20/20 21:05 Polyethylene Glycol (Miralax) 17 gm DAILYPRN PRN ORAL Constipation 04/08/20 19:00 05/08/20 18:59 Zinc Sulfate (Zinc Sulfate) 220 mg DAILY ORAL 04/15/20 09:00 04/25/20 08:59 04/21/20 09:35 Allergies: Coded Allergies: No Known Allergies (Unverified , 03/11/19) ROS Limited/Unobtainable: Yes Subjective 64 YO F with inoperable uterine cancer admitted with tachycardia. Now atrial fibrillation with rapid ventricular rate. Also COVID 19 positive. Cover for Int Med-DR Mendoza. New DVT RLE Objective Last Vital Signs Date Time Temp Pulse Resp B/P (MAP) Pulse Ox O2 Delivery O2 Flow Rate FiO2 04/21/20 16:00 97.1 90 21 119/72 (88) 97 04/21/20 09:00 Nasal Cannula 3.0 04/14/20 19:42 28 Laboratory Tests Test 04/20/20 17:50 04/21/20 00:47 04/21/20 06:53 04/21/20 11:56 POC Whole Blood Glucose Pending 116 MG/DL (74-106) H 107 MG/DL (74-106) H White Blood Count 13.8 K/UL (4.8-10.8) H Red Blood Count 2.76 M/UL (4.20-5.40) L Hemoglobin 8.0 G/DL (12.0-16.0) L Hematocrit 23.6 % (37.0-47.0) L Mean Corpuscular Volume 85 FL (80-99) Mean Corpuscular Hemoglobin 28.9 PG (27.0-31.0) Mean Corpuscular Hemoglobin Concent 33.8 G/DL (32.0-36.0) Red Cell Distribution Width 13.7 % (11.6-14.8) Platelet Count 278 K/UL (150-450) Mean Platelet Volume 4.7 FL (6.5-10.1) L Neutrophils (%) (Auto) 80.3 % (45.0-75.0) H Lymphocytes (%) (Auto) 7.2 % (20.0-45.0) L Monocytes (%) (Auto) 8.2 % (1.0-10.0) Eosinophils (%) (Auto) 0.1 % (0.0-3.0) Basophils (%) (Auto) 4.2 % (0.0-2.0) H Sodium Level 137 MMOL/L (136-145) Potassium Level 4.3 MMOL/L (3.5-5.1) Chloride Level 102 MMOL/L (98-107) Carbon Dioxide Level 29 MMOL/L (21-32) Anion Gap 7 mmol/L (5-15) Blood Urea Nitrogen 9 mg/dL (7-18) Creatinine 0.2 MG/DL (0.55-1.30) #L Estimat Glomerular Filtration Rate > 60 mL/min (>60) Glucose Level 107 MG/DL (74-106) H Calcium Level 8.7 MG/DL (8.5-10.1) Phosphorus Level 3.7 MG/DL (2.5-4.9) Magnesium Level 1.9 MG/DL (1.8-2.4) Total Bilirubin 0.5 MG/DL (0.2-1.0) Direct Bilirubin 0.2 MG/DL (0.0-0.3) Aspartate Amino Transf (AST/SGOT) 23 U/L (15-37) Alanine Aminotransferase (ALT/SGPT) 15 U/L (12-78) Alkaline Phosphatase 77 U/L (46-116) Total Protein 5.1 G/DL (6.4-8.2) L Albumin 2.2 G/DL (3.4-5.0) L Microbiology Date/Time Source Procedure Growth Status 04/20/20 12:50 Nasopharynx SARS-CoV-2 RdRp Gene Assay - Final Complete Intake and Output 04/20/20 04/21/20 19:00 07:00 Output Total 750 ml 900 ml Balance -750 ml -900 ml Output Urine Total 750 ml 900 ml Objective PHYSICAL EXAMINATION: GENERAL: The patient awake, responsive, however altered and confused. The patient appears to be paler and chronically-ill appearing. HEAD AND NECK: Pupils are equal and reactive to light. Extraocular movements are intact. Neck was supple. No JVD. LUNGS: Bilateral air entry. Decreased air in the bases. HEART: S1, S2. Tachycardic, irregular. No murmur or gallop was appreciated. ABDOMEN: Soft, nondistended. Tenderness on the lower abdominal area. Mildly obese. EXTREMITIES: No cyanosis, clubbing, or edema. GENITOURINARY: The patient noted to have Lowe catheter with dark red urine collection in a Lowe catheter. NEUROLOGIC: Cranial nerves II through XII grossly intact. The patient moving all extremities equally. Sensory is intact. Gait was not able to assess due to the patient's status. RECTAL: Refused and deferred. PSYCHIATRIC: Mood and affect, unable to obtain due to the patient's status. Assessment/Plan Assessment/Plan ASSESSMENT: 1. COVID-19 pneumonia. 2. Altered mental status, most likely secondary to toxic metabolic encephalopathy. 3. Atrial fibrillation with rapid ventricular rate. 4. Anemia most likely secondary to acute blood loss. 5. Sepsis secondary to urinary tract infection as well as pneumonia. 6. Vaginal bleeding. 7. UTI=VRE 8. History of diabetes type 2. 9. Inoperable endometrial adenocarcinoma, status post brachytherapy. 10. Hypertension. 11. History of lacunar infarction. 12. Deep venous thrombisis Right leg PLAN: 1. Telemetry 2. Dr. Buitrago=Pulmonary/Critical Care 3. Dr. Wale Wu = Cardiology. 4. antibiotic=linezolid; S/P vancomycin and cefepime. 5. Admit to droplet isolation COVID-19 room. 6. Code status =Full Code. 7. DVT prophylaxis SCD. 8. S/P transfusion 2 units of packed RBC. 9. ID=Dr Gautam 10. Continue decadron 11. S/P IVC filter placement 04/20/20 12. S/P PEG placement 04/19/20 Tariq Murphy MD Apr 21, 2020 17:33
--- NOTE | 2020-04-21 19:29 | NUR ---
NURSE HAND-OFF REPORT: Important Events on Shift:Hematuria, pt still on restrains, no IV access Patient Status: Stable Diet: G-tube Glucerna 1.2 @20ml/hr Pending Orders: Pending Results/Labs:BMP Pending MD notification: Latest Vital Signs: Temperature 97.1 , Pulse 106 , B/P 119 /72 , Respiratory Rate 21 , O2 SAT 97 , Nasal Cannula, O2 Flow Rate 3.0 . Vital Sign Comment: Stable EKG Rhythm: Sinus Tachycardia Rhythm change?: N MD Notified?: N - MD Response: Latest Ortega Fall Score: 55 Fall Risk: High Risk Safety Measures: Call light Within Reach, Bed Alarm Zone 1, Side Rails Side Rails x2, Bed position Low and Locked. Fall Precautions: Yellow Socks Yellow Gown Door Sign Patient Fall Education Report given to Cheryl/RN.
--- NOTE | 2020-04-21 19:30 | NUR ---
NURSE NOTES: Received report from Andria/RN. Patient in bed, lying semi-fowlers. On 3L nasal cannula, no distress or SOB noted. Running Glucerna 1.2 at 20 ml/hr. No IV access present at this moment, will attempt to obtain. Pt on bilateral wrist soft restraints, will monitor q2hrs. Call light within reach. Bed in the lowest position and locked, bed alarm on, Side rails up X3, mcmanus catheter draining reddish urine with small clots, will irrigate w NS prn. Will continue plan of care.
[2020-04-21] MEDS: Dyna-Hex 2% Top Sol 2oz TOPIC SCH (23:25)
[2020-04-21] MEDS: Miralax 17gm pkt ORAL SCH (23:26)
[2020-04-22] VITALS: BP 123/63
[2020-04-22 04:00] VITALS: BP 119/56
[2020-04-22] MEDS: NovoLOG Insulin Flexpen SUBQ SCH ×4 (06:00→17:41)
[2020-04-22 06:44] LABS: ANION GAP 5 mmol/L (5-15); BLOOD UREA NITROGEN 10 mg/dL (7-18); CALCIUM 9.2 MG/DL (8.5-10.1); CARBON DIOXIDE 31 MMOL/L (21-32); CHLORIDE 102 MMOL/L (98-107); CREATININE 0.5 MG/DL (0.55-1.30); POTASSIUM 4.3 MMOL/L (3.5-5.1); SODIUM 138 MMOL/L (136-145)
[2020-04-22 06:50] LABS: HEMATOCRIT 26.9 % (37.0-47.0); MEAN CORPUSCULAR VOLUME 86 FL (80-99); PLATELET COUNT 280 K/UL (150-450); RED BLOOD COUNT 3.12 M/UL (4.20-5.40); WHITE BLOOD COUNT 13.4 K/UL (4.8-10.8)
--- NOTE | 2020-04-22 07:37 | NUR ---
NURSE NOTES: Received report from Cheryl/RN. Patient in bed, lying semi-fowlers. On 3L nasal cannula, no distress or SOB noted. Running Glucerna 1.2 at 30lm/hr. No IV access present at this moment. Pt on bilateral wrist soft restrains, will monitor q2hrs. Call light within reach. Bed in the lowest position and locked. Side rails up X3. Will continue plan of care.
[2020-04-22 08:00] VITALS: BP 125/60
--- NOTE | 2020-04-22 08:25 | Urology Progress Note ---
Assessment/Plan Status: stable, unchanged Assessment/Plan: 1. Gross hematuria. 2. UTI. 3. Proteinuria. 4. Urinary retention. 5. Probable neurogenic bladder. 6. Probable cystitis. 7. Possible adrenal adenoma. 8. Acute kidney injury history, which is improved. 9. Sepsis history. monitor clinically mcmanus hand irrigated and do PRN will consider larger mcmanus or CBI if needed abx as ordered on ASA, lovenox IVC filter placed monitor h/h renal fxn stable cysto at some point electively Subjective Allergies: Coded Allergies: No Known Allergies (Unverified , 03/11/19) Subjective all noted Objective Last 24 Hour Vital Signs Date Time Temp Pulse Resp B/P (MAP) Pulse Ox O2 Delivery O2 Flow Rate FiO2 04/22/20 08:00 97.5 88 18 125/60 (81) 97 04/22/20 04:00 74 04/22/20 04:00 97.7 84 20 119/56 (77) 96 04/22/20 00:00 97.9 85 21 123/63 (83) 96 04/22/20 00:00 101 04/21/20 21:00 Nasal Cannula 3.0 04/21/20 20:00 97.7 100 21 125/66 (85) 95 04/21/20 20:00 100 04/21/20 16:00 97.1 90 21 119/72 (88) 97 04/21/20 16:00 106 04/21/20 12:00 100 04/21/20 12:00 97.9 110 20 109/55 (73) 95 04/21/20 09:00 Nasal Cannula 3.0 Intake and Output 04/21/20 04/22/20 19:00 07:00 Intake Total 320 ml Output Total 1150 ml 600 ml Balance -830 ml -600 ml Free Water 300 ml Tube Feeding 20 ml Output Urine Total 1150 ml 600 ml Microbiology Date/Time Source Procedure Growth Status 04/20/20 12:50 Nasopharynx SARS-CoV-2 RdRp Gene Assay - Final Complete 04/12/20 19:30 Blood Blood Culture - Final NO GROWTH AFTER 5 DAYS Complete 04/09/20 08:00 Urine,Clean Catch Urine Culture - Final Enterococcus Faecium - Vre Complete 04/08/20 15:55 Rectum VRE Culture - Final Enterococcus Faecium - Vre Complete Current Medications Medications (Trade) Dose Ordered Sig/Jere Route PRN Reason Start Time Stop Time Status Last Admin Dose Admin Acetaminophen (Tylenol) 650 mg Q4H PRN ORAL fever 04/08/20 19:00 05/08/20 18:59 04/19/20 20:57 Ascorbic Acid (Vitamin C) 500 mg TWICE A DAY ORAL 04/14/20 18:00 05/14/20 17:59 04/21/20 17:33 Aspirin (ASA) 81 mg DAILY NG 04/18/20 18:45 06/02/20 18:44 04/21/20 09:35 Chlorhexidine Gluconate (Geno-Hex 2%) 1 applic DAILY@2000 TOPIC 04/08/20 20:00 07/07/20 19:59 04/21/20 23:25 Dextrose (Dextrose 50%) 25 ml Q30M PRN IV Hypoglycemia 04/17/20 12:00 07/16/20 11:59 Dextrose (Dextrose 50%) 50 ml Q30M PRN IV Hypoglycemia 04/17/20 12:00 07/16/20 11:59 Dextrose/ Electrolytes 1,000 ml @ 75 mls/hr [id number] IV 04/08/20 22:30 05/08/20 22:29 04/19/20 14:59 Enoxaparin Sodium (Lovenox) 40 mg DAILY SUBQ 04/14/20 20:00 07/13/20 19:59 04/21/20 09:36 Insulin Aspart (NovoLOG) Q6H SUBQ 04/17/20 12:00 07/16/20 11:59 Lidocaine HCl (Xylocaine 1% 30ml) 30 ml NOW PRN INJ Radiology Procedure 04/20/20 09:30 04/23/20 09:29 Linezolid (Zyvox) 600 mg EVERY 12 HOURS ORAL 04/20/20 21:00 04/25/20 20:59 04/21/20 21:00 Metoprolol Tartrate (Lopressor) 5 mg Q1H PRN IVP spb more than 120 04/08/20 19:00 07/07/20 18:59 Multivitamins (Multivitamins) 1 tab DAILY ORAL 04/15/20 09:00 05/15/20 08:59 04/21/20 09:35 Ondansetron HCl (Zofran) 4 mg Q6H PRN IVP Nausea & Vomiting 04/08/20 19:00 05/08/20 18:59 Pantoprazole (Protonix) 40 mg EVERY 12 HOURS IVP 04/10/20 21:00 05/10/20 20:59 04/20/20 21:05 Polyethylene Glycol (Miralax) 17 gm BEDTIME ORAL 04/09/20 21:00 05/09/20 20:59 04/21/20 23:26 Polyethylene Glycol (Miralax) 17 gm DAILYPRN PRN ORAL Constipation 04/08/20 19:00 05/08/20 18:59 Zinc Sulfate (Zinc Sulfate) 220 mg DAILY ORAL 04/15/20 09:00 04/25/20 08:59 04/21/20 09:35 Laboratory Tests 04/21/20 11:56: POC Whole Blood Glucose 107H 04/21/20 17:45: POC Whole Blood Glucose 135H 04/21/20 23:44: POC Whole Blood Glucose 106 04/22/20 06:05: White Blood Count 13.4H, Red Blood Count 3.12L, Hemoglobin 9.0L, Hematocrit 26.9L, Mean Corpuscular Volume 86, Mean Corpuscular Hemoglobin 28.9, Mean Delores uscular Hemoglobin Concent 33.5, Red Cell Distribution Width 14.0, Platelet Count 280, Mean Platelet Volume 5.1L, Neutrophils (%) (Auto) , Lymphocytes (%) (Auto) , Monocytes (%) (Auto) , Eosinophils (%) (Auto) , Basophils (%) (Auto) , Neutrophils % (Manual) [Pending], Lymphocytes % (Manual) [Pending], Platelet Estimate [Pending], Platelet Morphology [Pending], Sodium Level 138, Potassium Level 4.3, Chloride Level 102, Carbon Dioxide Level 31, Anion Gap 5, Blood Urea Nitrogen 10, Creatinine 0.5#L, Estimat Glomerular Filtration Rate > 60, Glucose Level 109H, Calcium Level 9.2 04/22/20 06:07: POC Whole Blood Glucose 105 Height (Feet): 5 Height (Inches): 5.00 Weight (Pounds): 201 Objective exam stable mcmanus indwelling urine blood-tinged/payam LE duplex (04/19) (+) DVT Bong Valerio MD Apr 22, 2020 08:25
--- NOTE | 2020-04-22 08:29 | NUR ---
NURSE HAND-OFF REPORT: Important Events on Shift:Hematuria in mcmanus catheter small clots, pt still on restraints, no successful IV access able to be obtained Patient Status: Stable Diet: G-tube Glucerna 1.2 @30ml/hr, residual was 30, changed from 20- now 30 ml/h Pending Orders: Pending Results/Labs:BMP Pending MD notification: Vital Sign Comment: Stable EKG Rhythm: Sinus Tachycardia, SR Rhythm change?: N MD Notified?: N - MD Response: Latest Ortega Fall Score: 55 Fall Risk: High Risk Safety Measures: Call light Within Reach, Bed Alarm Zone 1, Side Rails Side Rails x2, Bed position Low and Locked. Fall Precautions: Yellow Socks Yellow Gown Door Sign Patient Fall Education Report given to Andria BOND
[2020-04-22] MEDS: Aspirin Baby 81mg NG SCH (08:43)
[2020-04-22] MEDS: Ascorbic Acid 500mg tab ORAL SCH ×2 (08:43→18:06)
[2020-04-22] MEDS: Zinc Sulfate 220mg ORAL SCH (08:44)
[2020-04-22] MEDS: Enoxaparin 40mg Inj SUBQ SCH (08:46)
[2020-04-22] MEDS: Pantoprazole Inj IVP SCH ×2 (08:58→21:00)
[2020-04-22] MEDS: D5 1/2NS w/KCl 20mEq 1,000 ML IV SCH ×2 (09:27→22:47)
--- NOTE | 2020-04-22 09:48 | General Progress Note ---
Subjective ROS Limited/Unobtainable: No Allergies: Coded Allergies: No Known Allergies (Unverified , 03/11/19) Objective Last 24 Hour Vital Signs Date Time Temp Pulse Resp B/P (MAP) Pulse Ox O2 Delivery O2 Flow Rate FiO2 04/22/20 08:00 97.5 88 18 125/60 (81) 97 04/22/20 04:00 74 04/22/20 04:00 97.7 84 20 119/56 (77) 96 04/22/20 00:00 97.9 85 21 123/63 (83) 96 04/22/20 00:00 101 04/21/20 21:00 Nasal Cannula 3.0 04/21/20 20:00 97.7 100 21 125/66 (85) 95 04/21/20 20:00 100 04/21/20 16:00 97.1 90 21 119/72 (88) 97 04/21/20 16:00 106 04/21/20 12:00 100 04/21/20 12:00 97.9 110 20 109/55 (73) 95 Intake and Output 04/21/20 04/22/20 19:00 07:00 Intake Total 320 ml Output Total 1150 ml 600 ml Balance -830 ml -600 ml Free Water 300 ml Tube Feeding 20 ml Output Urine Total 1150 ml 600 ml Laboratory Tests 04/21/20 11:56: POC Whole Blood Glucose 107H 04/21/20 17:45: POC Whole Blood Glucose 135H 04/21/20 23:44: POC Whole Blood Glucose 106 04/22/20 06:05: White Blood Count 13.4H, Red Blood Count 3.12L, Hemoglobin 9.0L, Hematocrit 26.9L, Mean Corpuscular Volume 86, Mean Corpuscular Hemoglobin 28.9, Mean Corpuscular Hemoglobin Concent 33.5, Red Cell Distribution Width 14.0, Platelet Count 280, Mean Platelet Volume 5.1L, Neutrophils (%) (Auto) , Lymphocytes (%) (Auto) , Monocytes (%) (Auto) , Eosinophils (%) (Auto) , Basophils (%) (Auto) , Differential Total Cells Counted 100, Neutrophils % (Manual) 85H, Lymphocytes % (Manual) 9L, Monocytes % (Manual) 6, Eosinophils % (Manual) 0, Basophils % (Manual) 0, Band Neutrophils 0, Platelet Estimate Adequate, Platelet Morphology Normal, Hypochromasia 2+, Anisocytosis 1+, Sodium Level 138, Potassium Level 4.3, Chloride Level 102, Carbon Dioxide Level 31, Anion Gap 5, Blood Urea Nitrogen 10, Creatinine 0.5#L, Estimat Glomerular Filtration Rate > 60, Glucose Level 109H, Calcium Level 9.2 04/22/20 06:07: POC Whole Blood Glucose 105 Height (Feet): 5 Height (Inches): 5.00 Weight (Pounds): 201 General Appearance: no apparent distress EENT: normal ENT inspection Neck: supple Cardiovascular: normal rate Respiratory/Chest: decreased breath sounds Abdomen: normal bowel sounds, non tender, soft Extremities: non-tender Assessment/Plan Status: stable, unchanged Assessment/Plan: 1. History of hypertension. 2. Diabetes. 3. CVA. 4. UTI. 5. Colitis. 6. Endometrial cancer. no recurrent gib s/p PEG GTF monitor for residuals Nima Park MD Apr 22, 2020 09:47
--- NOTE | 2020-04-22 10:41 | Infectious Diseases Prog Note ---
Assessment/Plan Assessment: Right Fem DVT US 04/19/20 - Com. Fem. DVT Septic Shock- SP COVID19 pneumonia- on 2l NC> hypoxic on ABG, now at 4L NC -04/12 CXR: Bilateral infiltrates, developing since 04/08/2020, likely on the basis of pneumonia. -04/08 CXR: Mild diffuse peribronchial thickening in the absence of airspace consolidation, which is nonspecific but can be seen with infectious/inflammatory airways disease in the appropriate clinical context. rapid covid pcr + UTI -04/09 ucx >100k VRE (E. faecium); S linezolid -04/08 u/a wbc tnct, nit neg, leuk +3; ucx <10k P, mirabilis (S Ceftriaxone, Zosyn), >100k gamma hemolytic strep Gram positive bacteremia- likely contaminant -04/08 Bcx 1/4 S. hominis, 2/4 S. auricularis ; 04/10 Bcx NGTD Low grade fever, SP No leukocytosis Vaginal bleeding -CT abd/p wo: Study limited due to lack of IV contrast. Pulmonary findings could represent multifocal pneumonia or aspiration.These findings could also represent viral pneumonia, although this is not highly specific pattern. Prominent rectal stool burden with mild wall thickening could represent stercoral colitis in the proper context. Otherwise, diffuse large colonic stool burden could be a cause for pain. Left superior renal pole ill-defined mild hyperdensity could be a manifestation of chronic medical renal disease in the proper context. Consider outpatient CT adrenal glands to further evaluate indeterminate left adrenal 1.2 cm nodularity. Calcified fibroid uterus. Appendectomy. ROSA MARIA, SP AST elevation; improving inoperable endometrial adenocarcinoma sp brachytherapy 12/16/19 HTN CVA/TIA hx of DVT MDD HLD dysphagia Afib Dm2 chronic lacunar infarction w/ b/l ganglia and king radiata and L parietal lobe stroke hx of UTI HI resident( [facility]) Plan: -Cont PO Zyvox #11/14 for both GPC bacteremia and VRE UTI -Cont dex 6mg daily - 04/17/20 SP remdesivir #5/5 -04/14 SP Cefepime #7/7 for Proteus UTI -04/12 SP IV Vancomycin #5 -f/u cx -Monitor CBC/CMP, temperatures -COVID19 isolation Thank you for this consultation. Will continue to follow along with you. Subjective Allergies: Coded Allergies: No Known Allergies (Unverified , 03/11/19) Afebrile Leukocytosis mild and decreasing for the last 3 days Stable on 3L NC Objective Last 24 Hour Vital Signs Date Time Temp Pulse Resp B/P (MAP) Pulse Ox O2 Delivery O2 Flow Rate FiO2 04/22/20 09:00 Nasal Cannula 3.0 04/22/20 08:00 73 04/22/20 08:00 97.5 88 18 125/60 (81) 97 04/22/20 04:00 74 04/22/20 04:00 97.7 84 20 119/56 (77) 96 04/22/20 00:00 97.9 85 21 123/63 (83) 96 04/22/20 00:00 101 04/21/20 21:00 Nasal Cannula 3.0 04/21/20 20:00 97.7 100 21 125/66 (85) 95 04/21/20 20:00 100 04/21/20 16:00 97.1 90 21 119/72 (88) 97 04/21/20 16:00 106 04/21/20 12:00 100 04/21/20 12:00 97.9 110 20 109/55 (73) 95 Height (Feet): 5 Height (Inches): 5.00 Weight (Pounds): 201 GENERAL: NAD HEENT: NCAT, MMM, EOMI LUNGS: Equal rise and fall of chest B/L no accessory muscle use ABDOMEN: Soft, nondistended Microbiology Date/Time Source Procedure Growth Status 04/20/20 12:50 Nasopharynx SARS-CoV-2 RdRp Gene Assay - Final Complete Laboratory Tests Test 04/21/20 11:56 04/21/20 17:45 04/21/20 23:44 04/22/20 06:05 POC Whole Blood Glucose 107 MG/DL (74-106) H 135 MG/DL (74-106) H 106 MG/DL (74-106) White Blood Count 13.4 K/UL (4.8-10.8) H Red Blood Count 3.12 M/UL (4.20-5.40) L Hemoglobin 9.0 G/DL (12.0-16.0) L Hematocrit 26.9 % (37.0-47.0) L Mean Corpuscular Volume 86 FL (80-99) Mean Corpuscular Hemoglobin 28.9 PG (27.0-31.0) Mean Corpuscular Hemoglobin Concent 33.5 G/DL (32.0-36.0) Red Cell Distribution Width 14.0 % (11.6-14.8) Platelet Count 280 K/UL (150-450) Mean Platelet Volume 5.1 FL (6.5-10.1) L Neutrophils (%) (Auto) % (45.0-75.0) Lymphocytes (%) (Auto) % (20.0-45.0) Monocytes (%) (Auto) % (1.0-10.0) Eosinophils (%) (Auto) % (0.0-3.0) Basophils (%) (Auto) % (0.0-2.0) Differential Total Cells Counted 100 Neutrophils % (Manual) 85 % (45-75) H Lymphocytes % (Manual) 9 % (20-45) L Monocytes % (Manual) 6 % (1-10) Eosinophils % (Manual) 0 % (0-3) Basophils % (Manual) 0 % (0-2) Band Neutrophils 0 % (0-8) Platelet Estimate Adequate Platelet Morphology Normal Hypochromasia 2+ Anisocytosis 1+ Sodium Level 138 MMOL/L (136-145) Potassium Level 4.3 MMOL/L (3.5-5.1) Chloride Level 102 MMOL/L (98-107) Carbon Dioxide Level 31 MMOL/L (21-32) Anion Gap 5 mmol/L (5-15) Blood Urea Nitrogen 10 mg/dL (7-18) Creatinine 0.5 MG/DL (0.55-1.30) #L Estimat Glomerular Filtration Rate > 60 mL/min (>60) Glucose Level 109 MG/DL (74-106) H Calcium Level 9.2 MG/DL (8.5-10.1) Test 04/22/20 06:07 POC Whole Blood Glucose 105 MG/DL (74-106) Current Medications Medications (Trade) Dose Ordered Sig/Jere Route PRN Reason Start Time Stop Time Status Last Admin Dose Admin Acetaminophen (Tylenol) 650 mg Q4H PRN ORAL fever 04/08/20 19:00 05/08/20 18:59 04/19/20 20:57 Ascorbic Acid (Vitamin C) 500 mg TWICE A DAY ORAL 04/14/20 18:00 05/14/20 17:59 04/22/20 08:43 Aspirin (ASA) 81 mg DAILY NG 04/18/20 18:45 06/02/20 18:44 04/22/20 08:43 Chlorhexidine Gluconate (Geno-Hex 2%) 1 applic DAILY@2000 TOPIC 04/08/20 20:00 07/07/20 19:59 04/21/20 23:25 Dextrose (Dextrose 50%) 25 ml Q30M PRN IV Hypoglycemia 04/17/20 12:00 07/16/20 11:59 Dextrose (Dextrose 50%) 50 ml Q30M PRN IV Hypoglycemia 04/17/20 12:00 07/16/20 11:59 Dextrose/ Electrolytes 1,000 ml @ 75 mls/hr [id number] IV 04/08/20 22:30 05/08/20 22:29 04/19/20 14:59 Enoxaparin Sodium (Lovenox) 40 mg DAILY SUBQ 04/14/20 20:00 07/13/20 19:59 04/22/20 08:46 Insulin Aspart (NovoLOG) Q6H SUBQ 04/17/20 12:00 07/16/20 11:59 Lidocaine HCl (Xylocaine 1% 30ml) 30 ml NOW PRN INJ Radiology Procedure 04/20/20 09:30 04/23/20 09:29 Linezolid (Zyvox) 600 mg EVERY 12 HOURS ORAL 04/20/20 21:00 04/25/20 20:59 04/22/20 08:44 Metoprolol Tartrate (Lopressor) 5 mg Q1H PRN IVP spb more than 120 04/08/20 19:00 07/07/20 18:59 Multivitamins (Multivitamins) 1 tab DAILY ORAL 04/15/20 09:00 05/15/20 08:59 04/22/20 08:44 Ondansetron HCl (Zofran) 4 mg Q6H PRN IVP Nausea & Vomiting 04/08/20 19:00 05/08/20 18:59 Pantoprazole (Protonix) 40 mg EVERY 12 HOURS IVP 04/10/20 21:00 05/10/20 20:59 04/20/20 21:05 Polyethylene Glycol (Miralax) 17 gm BEDTIME ORAL 04/09/20 21:00 05/09/20 20:59 04/21/20 23:26 Polyethylene Glycol (Miralax) 17 gm DAILYPRN PRN ORAL Constipation 04/08/20 19:00 05/08/20 18:59 Zinc Sulfate (Zinc Sulfate) 220 mg DAILY ORAL 04/15/20 09:00 04/25/20 08:59 04/22/20 08:44 Prabhu Jacques MD Apr 22, 2020 10:41
--- NOTE | 2020-04-22 11:10 | NUR ---
P.T Weekly Progress Notes: Pt seen this past week of P.T sessions. Pt demonstrate slow however steady progress in therapy. Pt continue to be limited by generalized weakness and poor activity tolerance. Vitals had been stable during each tx sessions: O2 SAT 92-95% at 2 l/min. Bed Mobility required MOD-MAX A X 1 depending on endurance/tolerance level. Pt able to sit at the [address]. time of 10 mins. with MIN A or pt holding on to the bed rails. Pt too weak to stand and transfer OOB at this time. Will continue with POC with progression of activities. Recommend SNF for further rehab intervention. Addendum: 04/22/20 at 1123 by LAKISHA KRAFT PT Amended: Links added.
--- NOTE | 2020-04-22 11:42 | Pulmonology Progress Note ---
Subjective ROS Limited/Unobtainable: No Constitutional: Reports: no symptoms, fatigue HEENT: Repors: no symptoms Allergies: Coded Allergies: No Known Allergies (Unverified , 03/11/19) Objective Last 24 Hour Vital Signs Date Time Temp Pulse Resp B/P (MAP) Pulse Ox O2 Delivery O2 Flow Rate FiO2 04/22/20 09:00 Nasal Cannula 3.0 04/22/20 08:00 73 04/22/20 08:00 97.5 88 18 125/60 (81) 97 04/22/20 04:00 74 04/22/20 04:00 97.7 84 20 119/56 (77) 96 04/22/20 00:00 97.9 85 21 123/63 (83) 96 04/22/20 00:00 101 04/21/20 21:00 Nasal Cannula 3.0 04/21/20 20:00 97.7 100 21 125/66 (85) 95 04/21/20 20:00 100 04/21/20 16:00 97.1 90 21 119/72 (88) 97 04/21/20 16:00 106 04/21/20 12:00 100 04/21/20 12:00 97.9 110 20 109/55 (73) 95 Intake and Output 04/21/20 04/22/20 19:00 07:00 Intake Total 320 ml Output Total 1150 ml 600 ml Balance -830 ml -600 ml Free Water 300 ml Tube Feeding 20 ml Output Urine Total 1150 ml 600 ml General Appearance: WD/WN HEENT: normocephalic, atraumatic Respiratory: chest wall non-tender, lungs clear Breasts: no masses Cardiovascular: normal peripheral pulses Abdomen: normal bowel sounds, soft, non tender Extremities: no cyanosis Neurologic: varnish filterer II-XII 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, alert Lymphatic: no neck adenopathy Microbiology Date/Time Source Procedure Growth Status 04/20/20 12:50 Nasopharynx SARS-CoV-2 RdRp Gene Assay - Final Complete Laboratory Tests 04/21/20 11:56: POC Whole Blood Glucose 107H 04/21/20 17:45: POC Whole Blood Glucose 135H 04/21/20 23:44: POC Whole Blood Glucose 106 04/22/20 06:05: White Blood Count 13.4H, Red Blood Count 3.12L, Hemoglobin 9.0L, Hematocrit 26.9L, Mean Corpuscular Volume 86, Mean Corpuscular Hemoglobin 28.9, Mean Corpuscular Hemoglobin Concent 33.5, Red Cell Distribution Width 14.0, Platelet Count 280, Mean Platelet Volume 5.1L, Neutrophils (%) (Auto) , Lymphocytes (%) (Auto) , Monocytes (%) (Auto) , Eosinophils (%) (Auto) , Basophils (%) (Auto) , Differential Total Cells Counted 100, Neutrophils % (Manual) 85H, Lymphocytes % (Manual) 9L, Monocytes % (Manual) 6, Eosinophils % (Manual) 0, Basophils % (Manual) 0, Band Neutrophils 0, Platelet Estimate Adequate, Platelet Morphology Normal, Hypochromasia 2+, Anisocytosis 1+, Sodium Level 138, Potassium Level 4.3, Chloride Level 102, Carbon Dioxide Level 31, Anion Gap 5, Blood Urea Nitrogen 10, Creatinine 0.5#L, Estimat Glomerular Filtration Rate > 60, Glucose Level 109H, Calcium Level 9.2 04/22/20 06:07: POC Whole Blood Glucose 105 04/22/20 11:38: POC Whole Blood Glucose [Pending] Current Medications Medications (Trade) Dose Ordered Sig/Jere Route PRN Reason Start Time Stop Time Status Last Admin Dose Admin Acetaminophen (Tylenol) 650 mg Q4H PRN ORAL fever 04/08/20 19:00 05/08/20 18:59 04/19/20 20:57 Ascorbic Acid (Vitamin C) 500 mg TWICE A DAY ORAL 04/14/20 18:00 05/14/20 17:59 04/22/20 08:43 Aspirin (ASA) 81 mg DAILY NG 04/18/20 18:45 06/02/20 18:44 04/22/20 08:43 Chlorhexidine Gluconate (Geno-Hex 2%) 1 applic DAILY@2000 TOPIC 04/08/20 20:00 07/07/20 19:59 04/21/20 23:25 Dextrose (Dextrose 50%) 25 ml Q30M PRN IV Hypoglycemia 04/17/20 12:00 07/16/20 11:59 Dextrose (Dextrose 50%) 50 ml Q30M PRN IV Hypoglycemia 04/17/20 12:00 07/16/20 11:59 Dextrose/ Electrolytes 1,000 ml @ 75 mls/hr [id number] IV 04/08/20 22:30 05/08/20 22:29 04/19/20 14:59 Enoxaparin Sodium (Lovenox) 40 mg DAILY SUBQ 04/14/20 20:00 07/13/20 19:59 04/22/20 08:46 Insulin Aspart (NovoLOG) Q6H SUBQ 04/17/20 12:00 07/16/20 11:59 Lidocaine HCl (Xylocaine 1% 30ml) 30 ml NOW PRN INJ Radiology Procedure 04/20/20 09:30 04/23/20 09:29 Linezolid (Zyvox) 600 mg EVERY 12 HOURS ORAL 04/20/20 21:00 04/25/20 20:59 04/22/20 08:44 Metoprolol Tartrate (Lopressor) 5 mg Q1H PRN IVP spb more than 120 04/08/20 19:00 07/07/20 18:59 Multivitamins (Multivitamins) 1 tab DAILY ORAL 04/15/20 09:00 05/15/20 08:59 04/22/20 08:44 Ondansetron HCl (Zofran) 4 mg Q6H PRN IVP Nausea & Vomiting 04/08/20 19:00 05/08/20 18:59 Pantoprazole (Protonix) 40 mg EVERY 12 HOURS IVP 04/10/20 21:00 05/10/20 20:59 04/20/20 21:05 Polyethylene Glycol (Miralax) 17 gm BEDTIME ORAL 04/09/20 21:00 05/09/20 20:59 04/21/20 23:26 Polyethylene Glycol (Miralax) 17 gm DAILYPRN PRN ORAL Constipation 04/08/20 19:00 05/08/20 18:59 Zinc Sulfate (Zinc Sulfate) 220 mg DAILY ORAL 04/15/20 09:00 04/25/20 08:59 04/22/20 08:44 Assessment/Plan Problems: (1) Hemorrhagic shock (2) Sepsis (3) Bacteremia (4) History of CVA (cerebrovascular accident) (5) Rectal bleeding (6) Hematuria Assessment/Plan ivc filter in place wbc still high likely secondary to Decadron on Zyvox f/u ID recommendations check electrolytes GI note appreciated continue Decadron dvt prophylaxis. Marina Buitrago MD Apr 22, 2020 11:41
[2020-04-22 12:00] VITALS: BP 120/56
--- NOTE | 2020-04-22 12:11 | Surgery Progress Note ---
Surgery Progress Note Subjective Additional Comments no acute events wbc stable exam unchange comfortable no n/v Objective Last 24 Hour Vital Signs Date Time Temp Pulse Resp B/P (MAP) Pulse Ox O2 Delivery O2 Flow Rate FiO2 04/22/20 09:00 Nasal Cannula 3.0 04/22/20 08:00 73 04/22/20 08:00 97.5 88 18 125/60 (81) 97 04/22/20 04:00 74 04/22/20 04:00 97.7 84 20 119/56 (77) 96 04/22/20 00:00 97.9 85 21 123/63 (83) 96 04/22/20 00:00 101 04/21/20 21:00 Nasal Cannula 3.0 04/21/20 20:00 97.7 100 21 125/66 (85) 95 04/21/20 20:00 100 04/21/20 16:00 97.1 90 21 119/72 (88) 97 04/21/20 16:00 106 I&O Intake and Output 04/21/20 04/22/20 19:00 07:00 Intake Total 320 ml Output Total 1150 ml 600 ml Balance -830 ml -600 ml Free Water 300 ml Tube Feeding 20 ml Output Urine Total 1150 ml 600 ml Dressing: other Wound: other Cardiovascular: RSR Respiratory: decreased breath sounds Abdomen: soft, non-tender, present bowel sounds Extremities: no tenderness, no cyanosis Laboratory Tests Test 04/21/20 17:45 04/21/20 23:44 04/22/20 06:05 04/22/20 06:07 POC Whole Blood Glucose 135 MG/DL (74-106) H 106 MG/DL (74-106) 105 MG/DL (74-106) White Blood Count 13.4 K/UL (4.8-10.8) H Red Blood Count 3.12 M/UL (4.20-5.40) L Hemoglobin 9.0 G/DL (12.0-16.0) L Hematocrit 26.9 % (37.0-47.0) L Mean Corpuscular Volume 86 FL (80-99) Mean Corpuscular Hemoglobin 28.9 PG (27.0-31.0) Mean Corpuscular Hemoglobin Concent 33.5 G/DL (32.0-36.0) Red Cell Distribution Width 14.0 % (11.6-14.8) Platelet Count 280 K/UL (150-450) Mean Platelet Volume 5.1 FL (6.5-10.1) L Neutrophils (%) (Auto) % (45.0-75.0) Lymphocytes (%) (Auto) % (20.0-45.0) Monocytes (%) (Auto) % (1.0-10.0) Eosinophils (%) (Auto) % (0.0-3.0) Basophils (%) (Auto) % (0.0-2.0) Differential Total Cells Counted 100 Neutrophils % (Manual) 85 % (45-75) H Lymphocytes % (Manual) 9 % (20-45) L Monocytes % (Manual) 6 % (1-10) Eosinophils % (Manual) 0 % (0-3) Basophils % (Manual) 0 % (0-2) Band Neutrophils 0 % (0-8) Platelet Estimate Adequate Platelet Morphology Normal Hypochromasia 2+ Anisocytosis 1+ Sodium Level 138 MMOL/L (136-145) Potassium Level 4.3 MMOL/L (3.5-5.1) Chloride Level 102 MMOL/L (98-107) Carbon Dioxide Level 31 MMOL/L (21-32) Anion Gap 5 mmol/L (5-15) Blood Urea Nitrogen 10 mg/dL (7-18) Creatinine 0.5 MG/DL (0.55-1.30) #L Estimat Glomerular Filtration Rate > 60 mL/min (>60) Glucose Level 109 MG/DL (74-106) H Calcium Level 9.2 MG/DL (8.5-10.1) Test 04/22/20 11:38 POC Whole Blood Glucose Pending Plan Problems: (1) Hematuria (2) Rectal bleeding Assessment & Plan: 64-year-old female identified to have rectal bleeding on admission. GI aware surgery aware no active bleeding at this time hemoglobin noted. Transfuse PRBC as needed. Pending scope consideration. passed swallow no bleeding on diet may need peg as per GI cont diet urology input appreciated mcmanus being irrigated supplements added for wound care DAILY ESTIMATED NEEDS: Needs based on Obesity, cardiac/ 67.6kg abw 22-27 kcals/kg 2020-7807 total kcals 1-1.5 g protein/kg 68-101 g total protein 25-30 mL/kg 0863-9298 total fluid mLs NUTRITION DIAGNOSIS: * Swallowing difficulty R/T dysphagia, h/o CVA, clinical condition as evidenced by seen by ECONOMIC SPECIALIST w/ rec for pureed moist texture w/ thin liquids. 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 CURRENT DIET:[facility] MED, pureed moist w/ thin liquids PO DIET RECOMMENDATIONS: Liberalized REGULAR w/ poor PO ([facility] MED+LOW NA w/ PO intake >50%) ADDITIONAL RECOMMENDATIONS: * Per SNF: HT=64" AF=[id number] (04/05/20) -> rec daily calibrated bedscale wt, monitor trend Possible wt loss of 68 lbs/29% in 13 months * W/ poor PO intake, add Glucerna TID w/ meals * Wound healing: Add MVI x 1, Vit C 500mg BID, ZnSO4 220mg QD x 10 days Woody (QD for now- increase to BID w/ good acceptance) added to tray * Monitor lytes, replete as needed (low k and mag) (3) Hemorrhagic shock (4) Acute CVA (cerebrovascular accident) (5) Septic shock (6) Anemia (7) Sepsis (8) Altered mental status (9) Atrial fibrillation with RVR (10) COVID-19 Assessment & Plan: ++ as per ID and pulm cxr noted (11) History of CVA (cerebrovascular accident) (12) Decubitus skin ulcer Assessment & Plan: Patient identified on admission to have a 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 apply therahoney to areas of slough. apply mositure barrier paste on the periwound. cover with optifoam dressing. change Q3D and PRN. Apply cavilon on both heels& malleoli. Cover each site with optifoam dressing. Change Q7D and PRN. DAILY ESTIMATED NEEDS: Needs based on Obesity, cardiac/ 67.6kg abw 22-27 kcals/kg 6109-4824 total kcals 1.25-1.5 g protein/kg 85-101 g total protein 25-30 mL/kg 2824-0505 total fluid mLs NUTRITION DIAGNOSIS: * Swallowing difficulty R/T dysphagia, h/o CVA, now s/p PEG placement. 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 CURRENT TF:Glucerna 1.2 @55 ENTERAL NUTRITION RECOMMENDATIONS: Glucerna 1.2 goal of 60ml/hr x24 hrs to provide 1440ml, 1728 kcal, 86g pro, 1159 ml free H2O Rec to Increase current TF to goal of 60ml/hr to meet 100% est needs Flush per MD/ HOB over 30 degrees ADDITIONAL RECOMMENDATIONS: * Per SNF: HT=64" TP=[id number] (04/05/20) -> rec daily calibrated bedscale wt, monitor trend Possible wt loss of 68 lbs/29% in 13 months * W/ poor PO intake, add Glucerna TID-now s/p PEG * Wound healing: Add MVI x 1, Vit C 500mg BID, ZnSO4 220mg QD x 10 days Woody BID * Monitor lytes, replete as needed Elian Ren Apr 22, 2020 12:11
--- NOTE | 2020-04-22 13:12 | Nephrology Progress Note ---
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 Labs reviewed. Renal parameters stable. Continue per consultants. April 21: Status quo. Renal parameters stable. Continue per consultants. April 20: Lab reviewed. Renal parameters stable. April 19: Labs reviewed. Electrolytes and renal parameters stable. April 18: Labs reviewed. Electrolytes and renal parameters stable. April 17: Lab reviewed. Stable from renal standpoint of view April 16: Labs reviewed. Remains stable from renal standpoint of view. Continue per consultants. April 15: Labs reviewed. Electrolyte abnormalities addressed. Continue as is. April 14: Labs reviewed. Low phosphorus and low magnesium corrected. Continue per consultants. Blood pressure remains stable. April 13: Electrolytes within normal limit. Renal parameters within normal limit. Continue per consultants. April 12: Electrolyte abnormalities noted and addressed. Continue per consultants Magnesium IV supplement as needed Potassium IV supplement as needed Phosphorus IV supplement as needed Monitor electrolytes Monitor hemoglobin hematocrit IV Protonix Adjust IV fluid Antibiotics per consultants Subjective ROS Limited/Unobtainable: No Constitutional: Reports: malaise, weakness Objective Objective Last 24 Hour Vital Signs Date Time Temp Pulse Resp B/P (MAP) Pulse Ox O2 Delivery O2 Flow Rate FiO2 04/22/20 12:00 97.7 75 20 120/56 (77) 98 04/22/20 12:00 87 04/22/20 09:00 Nasal Cannula 3.0 04/22/20 08:00 73 04/22/20 08:00 97.5 88 18 125/60 (81) 97 04/22/20 04:00 74 04/22/20 04:00 97.7 84 20 119/56 (77) 96 04/22/20 00:00 97.9 85 21 123/63 (83) 96 04/22/20 00:00 101 04/21/20 21:00 Nasal Cannula 3.0 04/21/20 20:00 97.7 100 21 125/66 (85) 95 04/21/20 20:00 100 04/21/20 16:00 97.1 90 21 119/72 (88) 97 04/21/20 16:00 106 Intake and Output 04/21/20 04/22/20 19:00 07:00 Intake Total 320 ml Output Total 1150 ml 600 ml Balance -830 ml -600 ml Free Water 300 ml Tube Feeding 20 ml Output Urine Total 1150 ml 600 ml Laboratory Tests 04/21/20 17:45: POC Whole Blood Glucose 135H 04/21/20 23:44: POC Whole Blood Glucose 106 04/22/20 06:05: White Blood Count 13.4H, Red Blood Count 3.12L, Hemoglobin 9.0L, Hematocrit 26.9L, Mean Corpuscular Volume 86, Mean Corpuscular Hemoglobin 28.9, Mean Corpuscular Hemoglobin Concent 33.5, Red Cell Distribution Width 14.0, Platelet Count 280, Mean Platelet Volume 5.1L, Neutrophils (%) (Auto) , Lymphocytes (%) (Auto) , Monocytes (%) (Auto) , Eosinophils (%) (Auto) , Basophils (%) (Auto) , Differential Total Cells Counted 100, Neutrophils % (Manual) 85H, Lymphocytes % (Manual) 9L, Monocytes % (Manual) 6, Eosinophils % (Manual) 0, Basophils % (Manual) 0, Band Neutrophils 0, Platelet Estimate Adequate, Platelet Morphology Normal, Hypochromasia 2+, Anisocytosis 1+, Sodium Level 138, Potassium Level 4.3, Chloride Level 102, Carbon Dioxide Level 31, Anion Gap 5, Blood Urea Nitrogen 10, Creatinine 0.5#L, Estimat Glomerular Filtration Rate > 60, Glucose Level 109H, Calcium Level 9.2 04/22/20 06:07: POC Whole Blood Glucose 105 04/22/20 11:38: POC Whole Blood Glucose [Pending] Height (Feet): 5 Height (Inches): 5.00 Weight (Pounds): 201 General Appearance: no apparent distress Respiratory/Chest: decreased breath sounds Abdomen: distended Objective No change Steven Edwards MD Apr 22, 2020 13:12
--- NOTE | 2020-04-22 15:58 | NUR ---
DISCHARGE DISPOSITION: PLEASE READ DC REQUESTED IF PT IS DISCHARGED PT WILL BE GOING TO [place] [id number] [address] [facility] [address] T: [phone]>> CALL FOR REPORT LIFELINE IS ON WILL CALL
[2020-04-22 16:00] VITALS: BP 119/62
--- NOTE | 2020-04-22 16:29 | Internal Med Progress Note ---
Subjective Physician Name Dewayne Mendoza Attending Physician Dewayne Mendoza MD Current Medications Medications (Trade) Dose Ordered Sig/Jere Route PRN Reason Start Time Stop Time Status Last Admin Dose Admin Acetaminophen (Tylenol) 650 mg Q4H PRN ORAL fever 04/08/20 19:00 05/08/20 18:59 04/19/20 20:57 Ascorbic Acid (Vitamin C) 500 mg TWICE A DAY ORAL 04/14/20 18:00 05/14/20 17:59 04/22/20 08:43 Aspirin (ASA) 81 mg DAILY NG 04/18/20 18:45 06/02/20 18:44 04/22/20 08:43 Chlorhexidine Gluconate (Geno-Hex 2%) 1 applic DAILY@1999 TOPIC 04/08/20 20:00 07/07/20 19:59 04/21/20 23:25 Dextrose (Dextrose 50%) 25 ml Q30M PRN IV Hypoglycemia 04/17/20 12:00 07/16/20 11:59 Dextrose (Dextrose 50%) 50 ml Q30M PRN IV Hypoglycemia 04/17/20 12:00 07/16/20 11:59 Dextrose/ Electrolytes 1,000 ml @ 75 mls/hr [id number] IV 04/08/20 22:30 05/08/20 22:29 04/19/20 14:59 Enoxaparin Sodium (Lovenox) 40 mg DAILY SUBQ 04/14/20 20:00 07/13/20 19:59 04/22/20 08:46 Insulin Aspart (NovoLOG) Q6H SUBQ 04/17/20 12:00 07/16/20 11:59 Lidocaine HCl (Xylocaine 1% 30ml) 30 ml NOW PRN INJ Radiology Procedure 04/20/20 09:30 04/23/20 09:29 Linezolid (Zyvox) 600 mg EVERY 12 HOURS ORAL 04/20/20 21:00 04/25/20 20:59 04/22/20 08:44 Metoprolol Tartrate (Lopressor) 5 mg Q1H PRN IVP spb more than 120 04/08/20 19:00 07/07/20 18:59 Multivitamins (Multivitamins) 1 tab DAILY ORAL 04/15/20 09:00 05/15/20 08:59 04/22/20 08:44 Ondansetron HCl (Zofran) 4 mg Q6H PRN IVP Nausea & Vomiting 04/08/20 19:00 05/08/20 18:59 Pantoprazole (Protonix) 40 mg EVERY 12 HOURS IVP 04/10/20 21:00 05/10/20 20:59 04/20/20 21:05 Polyethylene Glycol (Miralax) 17 gm BEDTIME ORAL 04/09/20 21:00 05/09/20 20:59 04/21/20 23:26 Polyethylene Glycol (Miralax) 17 gm DAILYPRN PRN ORAL Constipation 04/08/20 19:00 05/08/20 18:59 Zinc Sulfate (Zinc Sulfate) 220 mg DAILY ORAL 04/15/20 09:00 04/25/20 08:59 04/22/20 08:44 Allergies: Coded Allergies: No Known Allergies (Unverified , 03/11/19) Subjective awake, responsive, talking, hemoglobin: 9.0, WBC: 13.4. Objective Last Vital Signs Date Time Temp Pulse Resp B/P (MAP) Pulse Ox O2 Delivery O2 Flow Rate FiO2 04/22/20 12:00 97.7 75 20 120/56 (77) 98 04/22/20 09:00 Nasal Cannula 3.0 04/14/20 19:42 28 Laboratory Tests Test 04/21/20 17:45 04/21/20 23:44 04/22/20 06:05 04/22/20 06:07 POC Whole Blood Glucose 135 MG/DL (74-106) H 106 MG/DL (74-106) 105 MG/DL (74-106) White Blood Count 13.4 K/UL (4.8-10.8) H Red Blood Count 3.12 M/UL (4.20-5.40) L Hemoglobin 9.0 G/DL (12.0-16.0) L Hematocrit 26.9 % (37.0-47.0) L Mean Corpuscular Volume 86 FL (80-99) Mean Corpuscular Hemoglobin 28.9 PG (27.0-31.0) Mean Corpuscular Hemoglobin Concent 33.5 G/DL (32.0-36.0) Red Cell Distribution Width 14.0 % (11.6-14.8) Platelet Count 280 K/UL (150-450) Mean Platelet Volume 5.1 FL (6.5-10.1) L Neutrophils (%) (Auto) % (45.0-75.0) Lymphocytes (%) (Auto) % (20.0-45.0) Monocytes (%) (Auto) % (1.0-10.0) Eosinophils (%) (Auto) % (0.0-3.0) Basophils (%) (Auto) % (0.0-2.0) Differential Total Cells Counted 100 Neutrophils % (Manual) 85 % (45-75) H Lymphocytes % (Manual) 9 % (20-45) L Monocytes % (Manual) 6 % (1-10) Eosinophils % (Manual) 0 % (0-3) Basophils % (Manual) 0 % (0-2) Band Neutrophils 0 % (0-8) Platelet Estimate Adequate Platelet Morphology Normal Hypochromasia 2+ Anisocytosis 1+ Sodium Level 138 MMOL/L (136-145) Potassium Level 4.3 MMOL/L (3.5-5.1) Chloride Level 102 MMOL/L (98-107) Carbon Dioxide Level 31 MMOL/L (21-32) Anion Gap 5 mmol/L (5-15) Blood Urea Nitrogen 10 mg/dL (7-18) Creatinine 0.5 MG/DL (0.55-1.30) #L Estimat Glomerular Filtration Rate > 60 mL/min (>60) Glucose Level 109 MG/DL (74-106) H Calcium Level 9.2 MG/DL (8.5-10.1) Test 04/22/20 11:38 POC Whole Blood Glucose Pending Microbiology Date/Time Source Procedure Growth Status 04/20/20 12:50 Nasopharynx SARS-CoV-2 RdRp Gene Assay - Final Complete Intake and Output 04/21/20 04/22/20 19:00 07:00 Intake Total 320 ml Output Total 1150 ml 600 ml Balance -830 ml -600 ml Free Water 300 ml Tube Feeding 20 ml Output Urine Total 1150 ml 600 ml Objective GENERAL: awake, responsive, however confused. HEAD AND NECK: Pupils are equal and reactive to light. Extraocular movements are intact. Neck was supple. No JVD. LUNGS: Bilateral air entry. Decreased air in the bases. HEART: S1, S2. irregular. No murmur or gallop ABDOMEN: Soft, nondistended. not tenderness, Mildly obese, PEG site intact. EXTREMITIES: No cyanosis, clubbing, or edema. GENITOURINARY: Lowe catheter with bloody urine. NEUROLOGIC: Cranial nerves II through XII grossly intact. moving all extremit ies equally. Gait was not able to assess due to the patient's status. RECTAL: Refused and deferred. Assessment/Plan Assessment/Plan ASSESSMENT: 1. COVID-19 pneumonia. 2. Altered mental status, most likely secondary to toxic metabolic encephalopathy. 3. Atrial fibrillation with rapid ventricular rate. 4. Anemia most likely secondary to acute blood loss. 5. Sepsis secondary to urinary tract infection as well as pneumonia. 6. Vaginal bleeding. 7. UTI=VRE 8. History of diabetes type 2. 9. Inoperable endometrial adenocarcinoma, status post brachytherapy. 10. Hypertension. 11. History of lacunar infarction. 12. Hematuria. PLAN: 1. In Monitor Unit 2. Dr. Buitrago=Pulmonary/Critical Care 3. Dr. Wale Wu = Cardiology. 4. Antibiotic=Zyvox. 5. In droplet isolation COVID-19 room. 6. Code status =Full Code. 7. DVT prophylaxis: Lovenox 8. discharge planning to facility. 9. DVT prophylaxis/therapy: Lovenox injection - Completed Remdesivir and Decadron IV Dewayne Mendoza MD Apr 22, 2020 16:29
--- NOTE | 2020-04-22 17:40 | Cardiology Progress Note ---
Assessment/Plan Assessment/Plan hs of hypertension, diabetes previous CVA, COVID infection Sinus tachy (incorrect diagnosis of afib with tachycardia) hypotension, a/ hemorraghic shock vaginal bleeding. anemia s/p prbc tx pt in covid isolation exam deferred tele personally reviewed sinus no fever abx supportive care keep on tele monitoring bp seem ok has black stool hematuria addressed by dr murray remains on lmwh for dvt ppx still Subjective Subjective covid pt in soloalion PATIENT IS AAO X1. NO S/S OF PAIN OR RESPIRATORY DISTRESS NOTED AT THIS TIME. NG-TUBE IS RUNNING GLUCERNA 1.2 AT 55MLS/HR, NO RESIDUAL AND PATIENT IS TOLERATING WELL. Objective Last 24 Hour Vital Signs Date Time Temp Pulse Resp B/P (MAP) Pulse Ox O2 Delivery O2 Flow Rate FiO2 04/22/20 16:00 97.9 92 20 119/62 (81) 96 04/22/20 12:00 97.7 75 20 120/56 (77) 98 04/22/20 12:00 87 04/22/20 09:00 Nasal Cannula 3.0 04/22/20 08:00 73 04/22/20 08:00 97.5 88 18 125/60 (81) 97 04/22/20 04:00 74 04/22/20 04:00 97.7 84 20 119/56 (77) 96 04/22/20 00:00 97.9 85 21 123/63 (83) 96 04/22/20 00:00 101 04/21/20 21:00 Nasal Cannula 3.0 04/21/20 20:00 97.7 100 21 125/66 (85) 95 04/21/20 20:00 100 Intake and Output 04/21/20 04/22/20 19:00 07:00 Intake Total 320 ml Output Total 1150 ml 600 ml Balance -830 ml -600 ml Free Water 300 ml Tube Feeding 20 ml Output Urine Total 1150 ml 600 ml Laboratory Tests Test 04/21/20 17:45 04/21/20 23:44 04/22/20 06:05 04/22/20 06:07 POC Whole Blood Glucose 135 MG/DL (74-106) H 106 MG/DL (74-106) 105 MG/DL (74-106) White Blood Count 13.4 K/UL (4.8-10.8) H Red Blood Count 3.12 M/UL (4.20-5.40) L Hemoglobin 9.0 G/DL (12.0-16.0) L Hematocrit 26.9 % (37.0-47.0) L Mean Corpuscular Volume 86 FL (80-99) Mean Corpuscular Hemoglobin 28.9 PG (27.0-31.0) Mean Corpuscular Hemoglobin Concent 33.5 G/DL (32.0-36.0) Red Cell Distribution Width 14.0 % (11.6-14.8) Platelet Count 280 K/UL (150-450) Mean Platelet Volume 5.1 FL (6.5-10.1) L Neutrophils (%) (Auto) % (45.0-75.0) Lymphocytes (%) (Auto) % (20.0-45.0) Monocytes (%) (Auto) % (1.0-10.0) Eosinophils (%) (Auto) % (0.0-3.0) Basophils (%) (Auto) % (0.0-2.0) Differential Total Cells Counted 100 Neutrophils % (Manual) 85 % (45-75) H Lymphocytes % (Manual) 9 % (20-45) L Monocytes % (Manual) 6 % (1-10) Eosinophils % (Manual) 0 % (0-3) Basophils % (Manual) 0 % (0-2) Band Neutrophils 0 % (0-8) Platelet Estimate Adequate Platelet Morphology Normal Hypochromasia 2+ Anisocytosis 1+ Sodium Level 138 MMOL/L (136-145) Potassium Level 4.3 MMOL/L (3.5-5.1) Chloride Level 102 MMOL/L (98-107) Carbon Dioxide Level 31 MMOL/L (21-32) Anion Gap 5 mmol/L (5-15) Blood Urea Nitrogen 10 mg/dL (7-18) Creatinine 0.5 MG/DL (0.55-1.30) #L Estimat Glomerular Filtration Rate > 60 mL/min (>60) Glucose Level 109 MG/DL (74-106) H Calcium Level 9.2 MG/DL (8.5-10.1) Test 04/22/20 11:38 POC Whole Blood Glucose Pending Microbiology Date/Time Source Procedure Growth Status 04/20/20 12:50 Nasopharynx SARS-CoV-2 RdRp Gene Assay - Final Complete Objective exam deferred as in isolation with active covid infection Wale Wu MD Apr 22, 2020 17:40
--- NOTE | 2020-04-22 19:48 | NUR ---
NURSE HAND-OFF REPORT: Important Events on Shift:Pt still on restrains, hand irrigation of the mcmanus PRN. Patient Status: Stable Diet: Glucerna 1.2 40ml/hr Pending Orders: Pending Results/Labs: Pending MD notification: Latest Vital Signs: Temperature 97.9 , Pulse 87 , B/P 119 /62 , Respiratory Rate 20 , O2 SAT 96 , Nasal Cannula, O2 Flow Rate 3.0 . Vital Sign Comment: Stable EKG Rhythm: Sinus Rhythm Rhythm change?: N MD Notified?: N - MD Response: Latest Ortega Fall Score: 55 Fall Risk: High Risk Safety Measures: Call light Within Reach, Bed Alarm Zone 1, Side Rails Side Rails x2, Bed position Low and Locked. Fall Precautions: Yellow Socks Yellow Gown Door Sign Patient Fall Education Report given to Aj/RN.
--- NOTE | 2020-04-22 19:55 | NUR ---
NURSE NOTES: Pt received from VARUN Ayers. Pt is resting comfortably in bed and shows signs of mild pain; pt position was changed and comfort measures were implemented. Pt is A/O x1 and bed bound. Pt is on Cardiac Monitoring SR and asymptomatic. Pt is on NC 3 LPM and breathing unlabored. Pt has GT running Glucerna 1.2 40 ml/hr with goal of 55 ml/hr; will continue to titrate to goal. Pt has FC 16 fr draining well to gravity and shows hematuria; catheter is irrigated prn. Pt has restraints due to pulling at devices and skin is intact with PMSC x4. Bed is locked in lowest position with call light within reach. Will continue to monitor.
[2020-04-22 20:00] VITALS: BP 128/67
[2020-04-22] MEDS: Dyna-Hex 2% Top Sol 2oz TOPIC SCH (20:00)
[2020-04-22] MEDS: Miralax 17gm pkt ORAL SCH (21:00)
[2020-04-22] MEDS ORDERED: Sterile Water Irrig 1000ml IRRIG ONE (22:33)
[2020-04-23] VITALS: BP 101/68
[2020-04-23 04:00] VITALS: BP 124/66
[2020-04-23] MEDS: NovoLOG Insulin Flexpen SUBQ SCH ×5 (05:42→23:53)
--- NOTE | 2020-04-23 07:30 | NUR ---
NURSE NOTES: Received patient in bed. Awake, alert x1. On 3 L via NC. No signs of pain at this time. No Iv site, previously made aware. GT patent and flushed, running feeding as ordered. F/c in place with hematuria. bilateral soft restraints in place, hands are warm, normal color for ethnicity, active ROM. Patient is a high fall risk d/t Ortega fall score of 55. Patient placed close to the nurse's station for safety and close monitoring, yellow socks on, yellow gown on, Bed alarm on high sensitivity. Call light within reach - unable to return demonstration. CN and HADOOP ADMIN made aware.
--- NOTE | 2020-04-23 07:35 | General Progress Note ---
Subjective ROS Limited/Unobtainable: No Allergies: Coded Allergies: No Known Allergies (Unverified , 03/11/19) Objective Last 24 Hour Vital Signs Date Time Temp Pulse Resp B/P (MAP) Pulse Ox O2 Delivery O2 Flow Rate FiO2 04/23/20 04:00 84 04/23/20 04:00 97.9 100 20 124/66 (85) 96 04/23/20 00:00 98.6 106 20 101/68 (79) 100 04/23/20 00:00 96 04/22/20 21:00 Nasal Cannula 3.0 04/22/20 20:00 99 04/22/20 20:00 97.7 85 20 128/67 (87) 95 04/22/20 16:00 87 04/22/20 16:00 97.9 92 20 119/62 (81) 96 04/22/20 12:00 97.7 75 20 120/56 (77) 98 04/22/20 12:00 87 04/22/20 09:00 Nasal Cannula 3.0 04/22/20 08:00 73 04/22/20 08:00 97.5 88 18 125/60 (81) 97 Intake and Output 04/22/20 04/23/20 19:00 07:00 Intake Total 340 ml 345 ml Output Total 800 ml 650 ml Balance -460 ml -305 ml Free Water 300 ml 300 ml Tube Feeding 40 ml 45 ml Output Urine Total 800 ml 650 ml Laboratory Tests 04/22/20 11:38: POC Whole Blood Glucose [Pending] 04/22/20 17:40: POC Whole Blood Glucose 95 04/22/20 22:44: POC Whole Blood Glucose [Pending] 04/23/20 04:52: POC Whole Blood Glucose 89 04/23/20 05:24: POC Whole Blood Glucose [Pending] Height (Feet): 5 Height (Inches): 5.00 Weight (Pounds): 201 General Appearance: no apparent distress EENT: normal ENT inspection Neck: supple Cardiovascular: normal rate Respiratory/Chest: decreased breath sounds Abdomen: hypoactive bowel sounds Extremities: non-tender Assessment/Plan Status: stable, unchanged Assessment/Plan: 1. History of hypertension. 2. Diabetes. 3. CVA. 4. UTI. 5. Colitis. 6. Endometrial cancer. no recurrent gib s/p PEG GTF monitor for residuals hematuria care per urology fu cardiology Nima Hernandez MD Apr 23, 2020 07:35
--- NOTE | 2020-04-23 07:35 | NUR ---
NURSE HAND-OFF REPORT: Important Events on Shift:Pt GT feeding increased to 45 ml/hr Patient Status: Stable Diet: Gluverna 1.2 45 ml/hr; Goal 55 ml/hr Pending Orders: Central Line Placement Latest Vital Signs: Temperature 97.9 , Pulse 100 , B/P 124 /66 , Respiratory Rate 20 , O2 SAT 96 , Nasal Cannula, O2 Flow Rate 3.0 . Vital Sign Comment: VSS EKG Rhythm: Sinus Rhythm Rhythm change?: N MD Notified?: N - MD Response: Latest Ortega Fall Score: 55 Fall Risk: High Risk Safety Measures: Call light Within Reach, Bed Alarm Zone 1, Side Rails Side Rails x2, Bed position Low and Locked. Fall Precautions: Yellow Socks Yellow Gown Door Sign Patient Fall Education Report given to VARUN Kerns.
--- NOTE | 2020-04-23 07:47 | NUR ---
RD ASSESSMENT & RECOMMENDATIONS SEE CARE ACTIVITY FOR COMPLETE ASSESSMENT DAILY ESTIMATED NEEDS: Needs based on Obesity, cardiac/ 67.6kg abw 22-27 kcals/kg 2820-4155 total kcals 1.25-1.5 g protein/kg 85-101 g total protein 25-30 mL/kg 2889-7140 total fluid mLs NUTRITION DIAGNOSIS: * Swallowing difficulty R/T dysphagia, h/o CVA, now s/p PEG placement. 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 CURRENT TF:Glucerna 1.2 @55 ENTERAL NUTRITION RECOMMENDATIONS: Glucerna 1.2 goal of 60ml/hr x24 hrs to provide 1440ml, 1728 kcal, 86g pro, 1159 ml free H2O - Rec to Increase current TF to goal of 60ml/hr to meet 100% est needs - Flush per MD/ HOB over 30 degrees ADDITIONAL RECOMMENDATIONS: * Per SNF: HT=64" [id number] (04/05/20) -> rec daily calibrated bedscale wt, monitor trend Possible wt loss of 68 lbs/29% in 13 months * W/ poor PO intake, add Glucerna TID-----> now s/p PEG * Wound healing- Con't MVI x 1, Vit C 500mg BID, ZnSO4 220mg QD x 10 days add Woody BID * Monitor lytes, replete as needed
[2020-04-23 08:00] VITALS: BP 125/70
--- NOTE | 2020-04-23 08:57 | Infectious Diseases Prog Note ---
Assessment/Plan Assessment: Right Fem DVT US 04/19/20 - Com. Fem. DVT Septic Shock- SP COVID19 pneumonia- on 2l NC> hypoxic on ABG, now at 4L NC -04/12 CXR: Bilateral infiltrates, developing since 04/08/2020, likely on the basis of pneumonia. -04/08 CXR: Mild diffuse peribronchial thickening in the absence of airspace consolidation, which is nonspecific but can be seen with infectious/inflammatory airways disease in the appropriate clinical context. rapid covid pcr + UTI -04/09 ucx >100k VRE (E. faecium); S linezolid -04/08 u/a wbc tnct, nit neg, leuk +3; ucx <10k P, mirabilis (S Ceftriaxone, Zosyn), >100k gamma hemolytic strep Gram positive bacteremia- likely contaminant -04/08 Bcx 1/4 S. hominis, 2/4 S. auricularis ; 04/10 Bcx NGTD Low grade fever, SP No leukocytosis Vaginal bleeding -CT abd/p wo: Study limited due to lack of IV contrast. Pulmonary findings could represent multifocal pneumonia or aspiration.These findings could also represent viral pneumonia, although this is not highly specific pattern. Prominent rectal stool burden with mild wall thickening could represent stercoral colitis in the proper context. Otherwise, diffuse large colonic stool burden could be a cause for pain. Left superior renal pole ill-defined mild hyperdensity could be a manifestation of chronic medical renal disease in the proper context. Consider outpatient CT adrenal glands to further evaluate indeterminate left adrenal 1.2 cm nodularity. Calcified fibroid uterus. Appendectomy. 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 Will continue to follow along with you. Subjective Allergies: Coded Allergies: No Known Allergies (Unverified , 03/11/19) Afebrile Leukocytosis mild and decreasing for the last 3 days labs pending today Stable on 3L NC Objective Last 24 Hour Vital Signs Date Time Temp Pulse Resp B/P (MAP) Pulse Ox O2 Delivery O2 Flow Rate FiO2 04/23/20 08:25 Nasal Cannula 3.0 04/23/20 04:00 84 04/23/20 04:00 97.9 100 20 124/66 (85) 96 04/23/20 00:00 98.6 106 20 101/68 (79) 100 04/23/20 00:00 96 04/22/20 21:00 Nasal Cannula 3.0 04/22/20 20:00 99 04/22/20 20:00 97.7 85 20 128/67 (87) 95 04/22/20 16:00 87 04/22/20 16:00 97.9 92 20 119/62 (81) 96 04/22/20 12:00 97.7 75 20 120/56 (77) 98 04/22/20 12:00 87 04/22/20 09:00 Nasal Cannula 3.0 Height (Feet): 5 Height (Inches): 5.00 Weight (Pounds): 201 GENERAL: NAD on 3L NC HEENT: NCAT, MMM, EOMI LUNGS: Equal rise and fall of chest B/L no accessory muscle use ABDOMEN: Soft, nondistended Microbiology Date/Time Source Procedure Growth Status 04/20/20 12:50 Nasopharynx SARS-CoV-2 RdRp Gene Assay - Final Complete Laboratory Tests Test 04/22/20 11:38 04/22/20 17:40 04/22/20 22:44 04/23/20 04:52 POC Whole Blood Glucose Pending 95 MG/DL (74-106) Pending 89 MG/DL (74-106) Test 04/23/20 05:24 POC Whole Blood Glucose Pending Current Medications Medications (Trade) Dose Ordered Sig/Jere Route PRN Reason Start Time Stop Time Status Last Admin Dose Admin Acetaminophen (Tylenol) 650 mg Q4H PRN ORAL fever 04/08/20 19:00 05/08/20 18:59 04/19/20 20:57 Ascorbic Acid (Vitamin C) 500 mg TWICE A DAY ORAL 04/14/20 18:00 05/14/20 17:59 04/22/20 18:06 Aspirin (ASA) 81 mg DAILY NG 04/18/20 18:45 06/02/20 18:44 04/22/20 08:43 Chlorhexidine Gluconate (Geno-Hex 2%) 1 applic DAILY@2000 TOPIC 04/08/20 20:00 07/07/20 19:59 04/22/20 20:00 Dextrose (Dextrose 50%) 25 ml Q30M PRN IV Hypoglycemia 04/17/20 12:00 07/16/20 11:59 Dextrose (Dextrose 50%) 50 ml Q30M PRN IV Hypoglycemia 04/17/20 12:00 07/16/20 11:59 Dextrose/ Electrolytes 1,000 ml @ 75 mls/hr [id number] IV 04/08/20 22:30 05/08/20 22:29 04/19/20 14:59 Enoxaparin Sodium (Lovenox) 40 mg DAILY SUBQ 04/14/20 20:00 07/13/20 19:59 04/22/20 08:46 Insulin Aspart (NovoLOG) Q6H SUBQ 04/17/20 12:00 07/16/20 11:59 Lidocaine HCl (Xylocaine 1% 30ml) 30 ml NOW PRN INJ Radiology Procedure 04/20/20 09:30 04/23/20 09:29 Linezolid (Zyvox) 600 mg EVERY 12 HOURS ORAL 04/20/20 21:00 04/25/20 20:59 04/22/20 21:00 Metoprolol Tartrate (Lopressor) 5 mg Q1H PRN IVP spb more than 120 04/08/20 19:00 07/07/20 18:59 Multivitamins (Multivitamins) 1 tab DAILY ORAL 04/15/20 09:00 05/15/20 08:59 04/22/20 08:44 Ondansetron HCl (Zofran) 4 mg Q6H PRN IVP Nausea & Vomiting 04/08/20 19:00 05/08/20 18:59 Pantoprazole (Protonix) 40 mg EVERY 12 HOURS IVP 04/10/20 21:00 05/10/20 20:59 04/20/20 21:05 Polyethylene Glycol (Miralax) 17 gm BEDTIME ORAL 04/09/20 21:00 05/09/20 20:59 04/22/20 21:00 Polyethylene Glycol (Miralax) 17 gm DAILYPRN PRN ORAL Constipation 04/08/20 19:00 05/08/20 18:59 Zinc Sulfate (Zinc Sulfate) 220 mg DAILY ORAL 04/15/20 09:00 04/25/20 08:59 04/22/20 08:44 Prabhu Jacques MD Apr 23, 2020 08:57
[2020-04-23] MEDS: Pantoprazole Inj IVP SCH ×3 (09:00→20:54)
--- NOTE | 2020-04-23 09:07 | Surgery Progress Note ---
Surgery Progress Note Subjective Symptoms: tolerating diet, voiding well, passing flatus Objective Last 24 Hour Vital Signs Date Time Temp Pulse Resp B/P (MAP) Pulse Ox O2 Delivery O2 Flow Rate FiO2 04/23/20 08:25 Nasal Cannula 3.0 04/23/20 04:00 84 04/23/20 04:00 97.9 100 20 124/66 (85) 96 04/23/20 00:00 98.6 106 20 101/68 (79) 100 04/23/20 00:00 96 04/22/20 21:00 Nasal Cannula 3.0 04/22/20 20:00 99 04/22/20 20:00 97.7 85 20 128/67 (87) 95 04/22/20 16:00 87 04/22/20 16:00 97.9 92 20 119/62 (81) 96 04/22/20 12:00 97.7 75 20 120/56 (77) 98 04/22/20 12:00 87 I&O Intake and Output 04/22/20 04/23/20 19:00 07:00 Intake Total 340 ml 345 ml Output Total 800 ml 650 ml Balance -460 ml -305 ml Free Water 300 ml 300 ml Tube Feeding 40 ml 45 ml Output Urine Total 800 ml 650 ml Dressing: saturated Cardiovascular: RSR Respiratory: decreased breath sounds Abdomen: non-tender, present bowel sounds Extremities: no edema, no tenderness, no cyanosis Laboratory Tests Test 04/22/20 11:38 04/22/20 17:40 04/22/20 22:44 04/23/20 04:52 POC Whole Blood Glucose Pending 95 MG/DL (74-106) Pending 89 MG/DL (74-106) Test 04/23/20 05:24 POC Whole Blood Glucose Pending Plan Problems: (1) Hematuria (2) Rectal bleeding Assessment & Plan: 64-year-old female identified to have rectal bleeding on admission. GI aware surgery aware no active bleeding at this time hemoglobin noted. Transfuse PRBC as needed. Pending scope consideration. passed swallow no bleeding on diet may need peg as per GI cont diet urology input appreciated mcmanus being irrigated supplements added for wound care DAILY ESTIMATED NEEDS: Needs based on Obesity, cardiac/ 67.6kg abw 22-27 kcals/kg 8239-1681 total kcals 1-1.5 g protein/kg 68-101 g total protein 25-30 mL/kg 7854-8880 total fluid mLs NUTRITION DIAGNOSIS: * Swallowing difficulty R/T dysphagia, h/o CVA, clinical condition as evidenced by seen by SPORTS ATTORNEY w/ rec for pureed moist texture w/ thin liquids. 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 CURRENT DIET:[facility] MED, pureed moist w/ thin liquids PO DIET RECOMMENDATIONS: Liberalized REGULAR w/ poor PO ([facility] MED+LOW NA w/ PO intake >50%) ADDITIONAL RECOMMENDATIONS: * Per SNF: HT=64" [id number] (04/05/20) -> rec daily calibrated bedscale wt, monitor trend Possible wt loss of 68 lbs/29% in 13 months * W/ poor PO intake, add Glucerna TID w/ meals * Wound healing: Add MVI x 1, Vit C 500mg BID, ZnSO4 220mg QD x 10 days Woody (QD for now- increase to BID w/ good acceptance) added to tray * Monitor lytes, replete as needed (low k and mag) (3) Hemorrhagic shock (4) Acute CVA (cerebrovascular accident) (5) Septic shock (6) Anemia (7) Sepsis (8) Altered mental status (9) Atrial fibrillation with RVR (10) COVID-19 Assessment & Plan: ++ as per ID and pulm cxr noted (11) History of CVA (cerebrovascular accident) (12) Decubitus skin ulcer Assessment & Plan: Patient identified on admission to have a 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 apply therahoney to areas of slough. apply mositure barrier paste on the periwound. cover with optifoam dressing. change Q3D and PRN. Apply cavilon on both heels& malleoli. Cover each site with optifoam dressing. Change Q7D and PRN. DAILY ESTIMATED NEEDS: Needs based on Obesity, cardiac/ 67.6kg abw 22-27 kcals/kg 7570-6021 total kcals 1.25-1.5 g protein/kg 85-101 g total protein 25-30 mL/kg 6205-9816 total fluid mLs NUTRITION DIAGNOSIS: * Swallowing difficulty R/T dysphagia, h/o CVA, now s/p PEG placement. 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 CURRENT TF:Glucerna 1.2 @55 ENTERAL NUTRITION RECOMMENDATIONS: Glucerna 1.2 goal of 60ml/hr x24 hrs to provide 1440ml, 1728 kcal, 86g pro, 1159 ml free H2O Rec to Increase current TF to goal of 60ml/hr to meet 100% est needs Flush per MD/ HOB over 30 degrees ADDITIONAL RECOMMENDATIONS: * Per SNF: HT=64" [id number] (04/05/20) -> rec daily calibrated bedscale wt, monitor trend Possible wt loss of 68 lbs/29% in 13 months * W/ poor PO intake, add Glucerna TID-now s/p PEG * Wound healing: Add MVI x 1, Vit C 500mg BID, ZnSO4 220mg QD x 10 days Woody BID * Monitor lytes, replete as needed Elian Ren Apr 23, 2020 09:07
[2020-04-23] MEDS: Zinc Sulfate 220mg ORAL SCH (09:09)
[2020-04-23] MEDS: Ascorbic Acid 500mg tab ORAL SCH ×2 (09:09→17:35)
[2020-04-23] MEDS: Aspirin Baby 81mg NG SCH (09:09)
[2020-04-23] MEDS: Enoxaparin 40mg Inj SUBQ SCH (09:12)
--- NOTE | 2020-04-23 09:20 | Urology Progress Note ---
Assessment/Plan Status: stable, unchanged Assessment/Plan: 1. Gross hematuria. 2. UTI. 3. Proteinuria. 4. Urinary retention. 5. Probable neurogenic bladder. 6. Probable cystitis. 7. Possible adrenal adenoma. 8. Acute kidney injury history, which is improved. 9. Sepsis history. monitor clinically mcmanus hand irrigated and do PRN will consider larger mcmanus or CBI if needed abx as ordered on ASA and lovenox, hold if hematuria worsens IVC filter placed monitor h/h renal fxn stable cysto at some point electively Subjective Allergies: Coded Allergies: No Known Allergies (Unverified , 03/11/19) Subjective all noted Objective Last 24 Hour Vital Signs Date Time Temp Pulse Resp B/P (MAP) Pulse Ox O2 Delivery O2 Flow Rate FiO2 04/23/20 08:25 Nasal Cannula 3.0 04/23/20 04:00 84 04/23/20 04:00 97.9 100 20 124/66 (85) 96 04/23/20 00:00 98.6 106 20 101/68 (79) 100 04/23/20 00:00 96 04/22/20 21:00 Nasal Cannula 3.0 04/22/20 20:00 99 04/22/20 20:00 97.7 85 20 128/67 (87) 95 04/22/20 16:00 87 04/22/20 16:00 97.9 92 20 119/62 (81) 96 04/22/20 12:00 97.7 75 20 120/56 (77) 98 04/22/20 12:00 87 Intake and Output 04/22/20 04/23/20 19:00 07:00 Intake Total 340 ml 345 ml Output Total 800 ml 650 ml Balance -460 ml -305 ml Free Water 300 ml 300 ml Tube Feeding 40 ml 45 ml Output Urine Total 800 ml 650 ml Microbiology Date/Time Source Procedure Growth Status 04/20/20 12:50 Nasopharynx SARS-CoV-2 RdRp Gene Assay - Final Complete 04/12/20 19:30 Blood Blood Culture - Final NO GROWTH AFTER 5 DAYS Complete 04/09/20 08:00 Urine,Clean Catch Urine Culture - Final Enterococcus Faecium - Vre Complete 04/08/20 15:55 Rectum VRE Culture - Final Enterococcus Faecium - Vre Complete Current Medications Medications (Trade) Dose Ordered Sig/Jere Route PRN Reason Start Time Stop Time Status Last Admin Dose Admin Acetaminophen (Tylenol) 650 mg Q4H PRN ORAL fever 04/08/20 19:00 05/08/20 18:59 04/19/20 20:57 Ascorbic Acid (Vitamin C) 500 mg TWICE A DAY ORAL 04/14/20 18:00 05/14/20 17:59 04/23/20 09:09 Aspirin (ASA) 81 mg DAILY NG 04/18/20 18:45 06/02/20 18:44 04/23/20 09:09 Chlorhexidine Gluconate (Geno-Hex 2%) 1 applic DAILY@2000 TOPIC 04/08/20 20:00 07/07/20 19:59 04/22/20 20:00 Dextrose (Dextrose 50%) 25 ml Q30M PRN IV Hypoglycemia 04/17/20 12:00 07/16/20 11:59 Dextrose (Dextrose 50%) 50 ml Q30M PRN IV Hypoglycemia 04/17/20 12:00 07/16/20 11:59 Dextrose/ Electrolytes 1,000 ml @ 75 mls/hr [id number] IV 04/08/20 22:30 05/08/20 22:29 04/19/20 14:59 Enoxaparin Sodium (Lovenox) 40 mg DAILY SUBQ 04/14/20 20:00 07/13/20 19:59 04/23/20 09:12 Insulin Aspart (NovoLOG) Q6H SUBQ 04/17/20 12:00 07/16/20 11:59 Lidocaine HCl (Xylocaine 1% 30ml) 30 ml NOW PRN INJ Radiology Procedure 04/20/20 09:30 04/23/20 09:29 Linezolid (Zyvox) 600 mg EVERY 12 HOURS ORAL 04/20/20 21:00 04/25/20 20:59 04/23/20 09:09 Metoprolol Tartrate (Lopressor) 5 mg Q1H PRN IVP spb more than 120 04/08/20 19:00 07/07/20 18:59 Multivitamins (Multivitamins) 1 tab DAILY ORAL 04/15/20 09:00 05/15/20 08:59 04/23/20 09:09 Ondansetron HCl (Zofran) 4 mg Q6H PRN IVP Nausea & Vomiting 04/08/20 19:00 05/08/20 18:59 Pantoprazole (Protonix) 40 mg EVERY 12 HOURS IVP 04/10/20 21:00 05/10/20 20:59 04/23/20 09:10 Polyethylene Glycol (Miralax) 17 gm BEDTIME ORAL 04/09/20 21:00 05/09/20 20:59 04/22/20 21:00 Polyethylene Glycol (Miralax) 17 gm DAILYPRN PRN ORAL Constipation 04/08/20 19:00 05/08/20 18:59 Zinc Sulfate (Zinc Sulfate) 220 mg DAILY ORAL 04/15/20 09:00 04/25/20 08:59 04/23/20 09:09 Laboratory Tests 04/22/20 11:38: POC Whole Blood Glucose [Pending] 04/22/20 17:40: POC Whole Blood Glucose 95 04/22/20 22:44: POC Whole Blood Glucose [Pending] 04/23/20 04:52: POC Whole Blood Glucose 89 04/23/20 05:24: POC Whole Blood Glucose [Pending] Height (Feet): 5 Height (Inches): 5.00 Weight (Pounds): 201 Objective exam stable mcmanus indwelling urine blood-tinged/payam LE duplex (04/19) (+) DVT Bong Valerio MD Apr 23, 2020 09:20
[2020-04-23] MEDS: D5 1/2NS w/KCl 20mEq 1,000 ML IV SCH (11:31)
--- NOTE | 2020-04-23 11:55 | Internal Med Progress Note ---
Subjective Physician Name Tariq Murphy Attending Physician Dewayne Mendoza MD Current Medications Medications (Trade) Dose Ordered Sig/Jere Route PRN Reason Start Time Stop Time Status Last Admin Dose Admin Acetaminophen (Tylenol) 650 mg Q4H PRN ORAL fever 04/08/20 19:00 05/08/20 18:59 04/19/20 20:57 Ascorbic Acid (Vitamin C) 500 mg TWICE A DAY ORAL 04/14/20 18:00 05/14/20 17:59 04/23/20 09:09 Aspirin (ASA) 81 mg DAILY NG 04/18/20 18:45 06/02/20 18:44 04/23/20 09:09 Chlorhexidine Gluconate (Geno-Hex 2%) 1 applic DAILY@1999 TOPIC 04/08/20 20:00 07/07/20 19:59 04/22/20 20:00 Dextrose (Dextrose 50%) 25 ml Q30M PRN IV Hypoglycemia 04/17/20 12:00 07/16/20 11:59 Dextrose (Dextrose 50%) 50 ml Q30M PRN IV Hypoglycemia 04/17/20 12:00 07/16/20 11:59 Dextrose/ Electrolytes 1,000 ml @ 75 mls/hr [id number] IV 04/08/20 22:30 05/08/20 22:29 04/23/20 11:31 Enoxaparin Sodium (Lovenox) 40 mg DAILY SUBQ 04/14/20 20:00 07/13/20 19:59 04/23/20 09:12 Insulin Aspart (NovoLOG) Q6H SUBQ 04/17/20 12:00 07/16/20 11:59 Linezolid (Zyvox) 600 mg EVERY 12 HOURS ORAL 04/20/20 21:00 04/25/20 20:59 04/23/20 09:09 Metoprolol Tartrate (Lopressor) 5 mg Q1H PRN IVP spb more than 120 04/08/20 19:00 07/07/20 18:59 Multivitamins (Multivitamins) 1 tab DAILY ORAL 04/15/20 09:00 05/15/20 08:59 04/23/20 09:09 Ondansetron HCl (Zofran) 4 mg Q6H PRN IVP Nausea & Vomiting 04/08/20 19:00 05/08/20 18:59 Pantoprazole (Protonix) 40 mg EVERY 12 HOURS IVP 04/10/20 21:00 05/10/20 20:59 04/20/20 21:05 Polyethylene Glycol (Miralax) 17 gm BEDTIME ORAL 04/09/20 21:00 05/09/20 20:59 04/22/20 21:00 Polyethylene Glycol (Miralax) 17 gm DAILYPRN PRN ORAL Constipation 04/08/20 19:00 05/08/20 18:59 Zinc Sulfate (Zinc Sulfate) 220 mg DAILY ORAL 04/15/20 09:00 04/25/20 08:59 04/23/20 09:09 Allergies: Coded Allergies: No Known Allergies (Unverified , 03/11/19) Subjective 64 YO F with inoperable uterine cancer admitted with tachycardia. Now atrial fibrillation with rapid ventricular rate. Also COVID 19 positive. Cover for Int Med-DR Mendoza. New DVT RLE Objective Last Vital Signs Date Time Temp Pulse Resp B/P (MAP) Pulse Ox O2 Delivery O2 Flow Rate FiO2 04/23/20 08:25 Nasal Cannula 3.0 04/23/20 08:00 80 04/23/20 08:00 97.5 20 125/70 (88) 95 04/14/20 19:42 28 Laboratory Tests Test 04/22/20 17:40 04/22/20 22:44 04/23/20 04:52 04/23/20 05:24 POC Whole Blood Glucose 95 MG/DL (74-106) Pending 89 MG/DL (74-106) Pending Test 04/23/20 11:26 POC Whole Blood Glucose Pending Microbiology Date/Time Source Procedure Growth Status 04/20/20 12:50 Nasopharynx SARS-CoV-2 RdRp Gene Assay - Final Complete Intake and Output 04/22/20 04/23/20 19:00 07:00 Intake Total 340 ml 345 ml Output Total 800 ml 650 ml Balance -460 ml -305 ml Free Water 300 ml 300 ml Tube Feeding 40 ml 45 ml Output Urine Total 800 ml 650 ml Objective PHYSICAL EXAMINATION: GENERAL: The patient awake, responsive, however altered and confused. The patient appears to be paler and chronically-ill appearing. HEAD AND NECK: Pupils are equal and reactive to light. Extraocular movements are intact. Neck was supple. No JVD. LUNGS: Bilateral air entry. Decreased air in the bases. HEART: S1, S2. Tachycardic, irregular. No murmur or gallop was appreciated. ABDOMEN: Soft, nondistended. Tenderness on the lower abdominal area. Mildly obese. EXTREMITIES: No cyanosis, clubbing, or edema. GENITOURINARY: The patient noted to have Lowe catheter with dark red urine collection in a Lowe catheter. NEUROLOGIC: Cranial nerves II through XII grossly intact. The patient moving all extremities equally. Sensory is intact. Gait was not able to assess due to the patient's status. RECTAL: Refused and deferred. PSYCHIATRIC: Mood and affect, unable to obtain due to the patient's status. Assessment/Plan Assessment/Plan ASSESSMENT: 1. COVID-19 pneumonia. 2. Altered mental status, most likely secondary to toxic metabolic encephalopathy. 3. Atrial fibrillation with rapid ventricular rate. 4. Anemia most likely secondary to acute blood loss. 5. Sepsis secondary to urinary tract infection as well as pneumonia. 6. Vaginal bleeding. 7. UTI=VRE 8. History of diabetes type 2. 9. Inoperable endometrial adenocarcinoma, status post brachytherapy. 10. Hypertension. 11. History of lacunar infarction. 12. Deep venous thrombisis Right leg PLAN: 1. Telemetry 2. Dr. Buitrago=Pulmonary/Critical Care 3. Dr. Wale Wu = Cardiology. 4. antibiotic=linezolid; S/P vancomycin and cefepime. 5. Admit to droplet isolation [facility]- room. 6. Code status =Full Code. 7. DVT prophylaxis SCD. 8. S/P transfusion 2 units of packed RBC. 9. ID=Dr Gautam 10. Continue decadron 11. S/P IVC filter placement 04/20/20 12. S/P PEG placement 04/19/20 Tariq Murphy MD Apr 23, 2020 11:55
[2020-04-23 12:00] VITALS: BP 110/70
--- NOTE | 2020-04-23 12:24 | NUR ---
NURSE NOTES: Tube feeding increased to 50 mL/hr, no residual at this time.
--- NOTE | 2020-04-23 13:48 | Nephrology Progress Note ---
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 Renal parameters stable. Continue per consultants. April 22: Status quo. Labs reviewed. Renal parameters stable. Continue per consultants. April 21: Status quo. Renal parameters stable. Continue per consultants. April 20: Lab reviewed. Renal parameters stable. April 19: Labs reviewed. Electrolytes and renal parameters stable. April 18: Labs reviewed. Electrolytes and renal parameters stable. April 17: Lab reviewed. Stable from renal standpoint of view April 16: Labs reviewed. Remains stable from renal standpoint of view. Continue per consultants. April 15: Labs reviewed. Electrolyte abnormalities addressed. Continue as is. April 14: Labs reviewed. Low phosphorus and low magnesium corrected. Continue per consultants. Blood pressure remains stable. April 13: Electrolytes within normal limit. Renal parameters within normal limit. Continue per consultants. April 12: Electrolyte abnormalities noted and addressed. Continue per consultants Magnesium IV supplement as needed Potassium IV supplement as needed Phosphorus IV supplement as needed Monitor electrolytes Monitor hemoglobin hematocrit IV Protonix Adjust IV fluid Antibiotics per consultants Subjective ROS Limited/Unobtainable: Yes Objective Objective Last 24 Hour Vital Signs Date Time Temp Pulse Resp B/P (MAP) Pulse Ox O2 Delivery O2 Flow Rate FiO2 04/23/20 12:00 91 04/23/20 12:00 97.6 108 19 110/70 (83) 93 04/23/20 08:25 Nasal Cannula 3.0 04/23/20 08:00 80 04/23/20 08:00 97.5 71 20 125/70 (88) 95 04/23/20 04:00 84 04/23/20 04:00 97.9 100 20 124/66 (85) 96 04/23/20 00:00 98.6 106 20 101/68 (79) 100 04/23/20 00:00 96 04/22/20 21:00 Nasal Cannula 3.0 04/22/20 20:00 99 04/22/20 20:00 97.7 85 20 128/67 (87) 95 04/22/20 16:00 87 04/22/20 16:00 97.9 92 20 119/62 (81) 96 Intake and Output 04/22/20 04/23/20 19:00 07:00 Intake Total 340 ml 345 ml Output Total 800 ml 650 ml Balance -460 ml -305 ml Free Water 300 ml 300 ml Tube Feeding 40 ml 45 ml Output Urine Total 800 ml 650 ml Laboratory Tests 04/22/20 17:40: POC Whole Blood Glucose 95 04/22/20 22:44: POC Whole Blood Glucose [Pending] 04/23/20 04:52: POC Whole Blood Glucose 89 04/23/20 05:24: POC Whole Blood Glucose [Pending] 04/23/20 11:26: POC Whole Blood Glucose [Pending] Height (Feet): 5 Height (Inches): 5.00 Weight (Pounds): 201 General Appearance: no apparent distress Objective No change Steven Edwards MD Apr 23, 2020 13:48
--- NOTE | 2020-04-23 14:54 | Cardiology Progress Note ---
Assessment/Plan Assessment/Plan hs of hypertension, diabetes previous CVA, COVID infection Sinus tachy (incorrect diagnosis of afib with tachycardia) hypotension, a/ hemorraghic shock vaginal bleeding. anemia s/p prbc tx pt in covid isolation exam deferred tele personally reviewed sinus supportive care keep on tele monitoring bp seem ok remains on lmwh for dvt ppx still Subjective ROS Limited/Unobtainable: Yes Subjective covid pt in soloalion per rn awake, alert x1. On 3 L via NC. No signs of pain at this time. No Iv site, MD previously made aware. GT patent and flushed, running feeding as ordered. F/c in place with hematuria. bilateral soft restraints in place, hands are warm, Objective Last 24 Hour Vital Signs Date Time Temp Pulse Resp B/P (MAP) Pulse Ox O2 Delivery O2 Flow Rate FiO2 04/23/20 12:00 91 04/23/20 12:00 97.6 108 19 110/70 (83) 93 04/23/20 08:25 Nasal Cannula 3.0 04/23/20 08:00 80 04/23/20 08:00 97.5 71 20 125/70 (88) 95 04/23/20 04:00 84 04/23/20 04:00 97.9 100 20 124/66 (85) 96 04/23/20 00:00 98.6 106 20 101/68 (79) 100 04/23/20 00:00 96 04/22/20 21:00 Nasal Cannula 3.0 04/22/20 20:00 99 04/22/20 20:00 97.7 85 20 128/67 (87) 95 04/22/20 16:00 87 04/22/20 16:00 97.9 92 20 119/62 (81) 96 Intake and Output 04/22/20 04/23/20 19:00 07:00 Intake Total 340 ml 345 ml Output Total 800 ml 650 ml Balance -460 ml -305 ml Free Water 300 ml 300 ml Tube Feeding 40 ml 45 ml Output Urine Total 800 ml 650 ml Laboratory Tests Test 04/22/20 17:40 04/22/20 22:44 04/23/20 04:52 04/23/20 05:24 POC Whole Blood Glucose 95 MG/DL (74-106) Pending 89 MG/DL (74-106) Pending Test 04/23/20 11:26 POC Whole Blood Glucose Pending Objective exam deferred as in isolation with active covid infection Wale Wu MD Apr 23, 2020 14:54
--- NOTE | 2020-04-23 15:04 | Pulmonology Progress Note ---
Subjective ROS Limited/Unobtainable: Yes Constitutional: Reports: no symptoms, fatigue HEENT: Repors: no symptoms Allergies: Coded Allergies: No Known Allergies (Unverified , 03/11/19) Objective Last 24 Hour Vital Signs Date Time Temp Pulse Resp B/P (MAP) Pulse Ox O2 Delivery O2 Flow Rate FiO2 04/23/20 12:00 91 04/23/20 12:00 97.6 108 19 110/70 (83) 93 04/23/20 08:25 Nasal Cannula 3.0 04/23/20 08:00 80 04/23/20 08:00 97.5 71 20 125/70 (88) 95 04/23/20 04:00 84 04/23/20 04:00 97.9 100 20 124/66 (85) 96 04/23/20 00:00 98.6 106 20 101/68 (79) 100 04/23/20 00:00 96 04/22/20 21:00 Nasal Cannula 3.0 04/22/20 20:00 99 04/22/20 20:00 97.7 85 20 128/67 (87) 95 04/22/20 16:00 87 04/22/20 16:00 97.9 92 20 119/62 (81) 96 Intake and Output 04/22/20 04/23/20 19:00 07:00 Intake Total 340 ml 345 ml Output Total 800 ml 650 ml Balance -460 ml -305 ml Free Water 300 ml 300 ml Tube Feeding 40 ml 45 ml Output Urine Total 800 ml 650 ml General Appearance: WD/WN HEENT: normocephalic, atraumatic Respiratory: chest wall non-tender, lungs clear Breasts: no masses Cardiovascular: normal peripheral pulses Abdomen: normal bowel sounds, soft, non tender Extremities: no cyanosis Neurologic: cook specialty foreign food II-XII 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, alert Lymphatic: no neck adenopathy Laboratory Tests 04/22/20 17:40: POC Whole Blood Glucose 95 04/22/20 22:44: POC Whole Blood Glucose [Pending] 04/23/20 04:52: POC Whole Blood Glucose 89 04/23/20 05:24: POC Whole Blood Glucose [Pending] 04/23/20 11:26: POC Whole Blood Glucose [Pending] Current Medications Medications (Trade) Dose Ordered Sig/Jere Route PRN Reason Start Time Stop Time Status Last Admin Dose Admin Acetaminophen (Tylenol) 650 mg Q4H PRN ORAL fever 04/08/20 19:00 05/08/20 18:59 04/19/20 20:57 Ascorbic Acid (Vitamin C) 500 mg TWICE A DAY ORAL 04/14/20 18:00 05/14/20 17:59 04/23/20 09:09 Aspirin (ASA) 81 mg DAILY NG 04/18/20 18:45 06/02/20 18:44 04/23/20 09:09 Chlorhexidine Gluconate (Geno-Hex 2%) 1 applic DAILY@2000 TOPIC 04/08/20 20:00 07/07/20 19:59 04/22/20 20:00 Dextrose (Dextrose 50%) 25 ml Q30M PRN IV Hypoglycemia 04/17/20 12:00 07/16/20 11:59 Dextrose (Dextrose 50%) 50 ml Q30M PRN IV Hypoglycemia 04/17/20 12:00 07/16/20 11:59 Dextrose/ Electrolytes 1,000 ml @ 75 mls/hr [id number] IV 04/08/20 22:30 05/08/20 22:29 04/23/20 11:31 Enoxaparin Sodium (Lovenox) 40 mg DAILY SUBQ 04/14/20 20:00 07/13/20 19:59 04/23/20 09:12 Insulin Aspart (NovoLOG) Q6H SUBQ 04/17/20 12:00 07/16/20 11:59 Linezolid (Zyvox) 600 mg EVERY 12 HOURS ORAL 04/20/20 21:00 04/25/20 20:59 04/23/20 09:09 Metoprolol Tartrate (Lopressor) 5 mg Q1H PRN IVP spb more than 120 04/08/20 19:00 07/07/20 18:59 Multivitamins (Multivitamins) 1 tab DAILY ORAL 04/15/20 09:00 05/15/20 08:59 04/23/20 09:09 Ondansetron HCl (Zofran) 4 mg Q6H PRN IVP Nausea & Vomiting 04/08/20 19:00 05/08/20 18:59 Pantoprazole (Protonix) 40 mg EVERY 12 HOURS IVP 04/10/20 21:00 05/10/20 20:59 04/20/20 21:05 Polyethylene Glycol (Miralax) 17 gm BEDTIME ORAL 04/09/20 21:00 05/09/20 20:59 04/22/20 21:00 Polyethylene Glycol (Miralax) 17 gm DAILYPRN PRN ORAL Constipation 04/08/20 19:00 05/08/20 18:59 Zinc Sulfate (Zinc Sulfate) 220 mg DAILY ORAL 04/15/20 09:00 04/25/20 08:59 04/23/20 09:09 Assessment/Plan Problems: (1) Hemorrhagic shock (2) Sepsis (3) Bacteremia (4) History of CVA (cerebrovascular accident) (5) Rectal bleeding (6) Hematuria Assessment/Plan looks comfortable somnolent ivc filter in place wbc still high likely secondary to Decadron on Zyvox f/u ID recommendations check electrolytes GI note appreciated continue Decadron dvt prophylaxis. Marina Buitrago MD Apr 23, 2020 15:04
[2020-04-23 16:00] VITALS: BP 119/62
[2020-04-23 18:25] LABS: BASOPHILS % (AUTO) 1.2 % (0.0-2.0); EOSINOPHILS % (AUTO) 1.7 % (0.0-3.0); HEMATOCRIT 26.7 % (37.0-47.0); HEMOGLOBIN 8.6 G/DL (12.0-16.0); LYMPHOCYTES % (AUTO) 10.4 % (20.0-45.0); MEAN CORPUSCULAR VOLUME 90 FL (80-99); MONOCYTES % (AUTO) 4.2 % (1.0-10.0); NEUTROPHILS % (AUTO) 82.5 % (45.0-75.0); PLATELET COUNT 306 K/UL (150-450); RED BLOOD COUNT 2.97 M/UL (4.20-5.40); RED CELL DISTRIBUTION WIDTH 14.6 % (11.6-14.8); WHITE BLOOD COUNT 12.1 K/UL (4.8-10.8)
--- NOTE | 2020-04-23 19:29 | NUR ---
NURSE HAND-OFF REPORT: Important Events on Shift:[IV in right AC, increase feeding to 50 mL/hr] Patient Status: [FULL CODE] Diet: [TF] Pending Orders: [] Pending Results/Labs:[] Pending MD notification:[] Latest Vital Signs: Temperature 98.6 , Pulse 110 , B/P 119 /62 , Respiratory Rate 19 , O2 SAT 96 , Nasal Cannula, O2 Flow Rate 3.0 . Vital Sign Comment: [] EKG Rhythm: Sinus Tachycardia Rhythm change?: Y MD Notified?: N - MD Response: Latest Ortega Fall Score: 55 Fall Risk: High Risk Safety Measures: Call light Within Reach, Bed Alarm Zone 1, Side Rails Side Rails x2, Bed position Low and Locked. Fall Precautions: Yellow Socks Yellow Gown Door Sign Patient Fall Education Report given to [Maria Esther RN].
--- NOTE | 2020-04-23 19:53 | NUR ---
NURSE NOTES: Patient received from VARUN Kerns. Patient is A/O x 1. Patient is on nasal cannula at 3 L. Patient has a GT with glucerna 1.2 running at 50 ml/hr. Lowe is patent and flushed, with hematuria. Patient has an IV 22 gauge right AC. Patient has an abdominal binder and restraints. Patient is not showing any signs of acute distress. Bed is in the lowest position, call light within reach. Will continue to monitor.
[2020-04-23 20:00] VITALS: BP 141/77
[2020-04-23] MEDS: Dyna-Hex 2% Top Sol 2oz TOPIC SCH (20:54)
[2020-04-23] MEDS: Miralax 17gm pkt ORAL SCH (20:54)
[2020-04-24] VITALS: BP 145/68
[2020-04-24] MEDS: D5 1/2NS w/KCl 20mEq 1,000 ML IV SCH ×2 (01:01→15:10)
[2020-04-24 04:00] VITALS: BP 119/59
[2020-04-24] MEDS: NovoLOG Insulin Flexpen SUBQ SCH ×3 (06:00→17:52)
--- NOTE | 2020-04-24 07:32 | NUR ---
NURSE NOTES: Received patient in bed. Awake, Alert x1. On 3 L via NC. No signs of pain noted at this time. GT patent and flushed, feeding held d/t emesis x1 and residual >150 cc. F/c in place with hematuria. Bilateral soft wrist restraints, hands are warm and normal color for ethnicity with active ROM. Iv in the Right AC, infusing IVF as ordered. Addendum: 04/24/20 at 0738 by Luis F Shultz RN Patient is a high fall risk d/t Ortega fall score of 55. Patient placed close to the nurse's station, yellow socks on, yellow gown on, bed alarm placed on high sensitivity. Call light placed within reach - unable to return demonstration. CN and [employer] made aware. Heart monitor on.
--- NOTE | 2020-04-24 07:33 | NUR ---
NURSE HAND-OFF REPORT: Important Events on Shift:[Patient had an emesis of 100 ml around 2200. GT had a residual of 150 ml. GT has been stopped.] Patient Status: [Stable] Diet: [Glucerna 1.2 @ 50] Pending Orders: [] Pending Results/Labs:[] Pending MD notification:[] Latest Vital Signs: Temperature 97.4 , Pulse 122 , B/P 119 /59 , Respiratory Rate 24 , O2 SAT 98 , Nasal Cannula, O2 Flow Rate 3.0 . Vital Sign Comment: [] EKG Rhythm: Sinus Tachycardia Rhythm change?: N MD Notified?: N - MD Response: Latest Ortega Fall Score: 55 Fall Risk: High Risk Safety Measures: Call light Within Reach, Bed Alarm Zone 1, Side Rails Side Rails x2, Bed position Low and Locked. Fall Precautions: Yellow Socks Yellow Gown Door Sign Patient Fall Education Report given to [VARUN Kerns].
[2020-04-24 07:56] VITALS: BP 123/62
[2020-04-24] MEDS ORDERED: Metoclopramide 10mg/2ml Inj IVP PRN (08:30)
--- NOTE | 2020-04-24 08:33 | General Progress Note ---
Subjective ROS Limited/Unobtainable: No Allergies: Coded Allergies: No Known Allergies (Unverified , 03/11/19) Objective Last 24 Hour Vital Signs Date Time Temp Pulse Resp B/P (MAP) Pulse Ox O2 Delivery O2 Flow Rate FiO2 04/24/20 08:11 Nasal Cannula 3.0 04/24/20 07:56 98.1 72 18 123/62 (82) 93 04/24/20 04:00 97.4 122 24 119/59 (79) 98 04/24/20 04:00 104 04/24/20 00:00 97.7 124 24 145/68 (93) 98 04/24/20 00:00 112 04/23/20 21:00 Nasal Cannula 3.0 04/23/20 20:00 98.0 119 24 141/77 (98) 97 04/23/20 20:00 124 04/23/20 16:00 110 04/23/20 16:00 98.6 104 19 119/62 (81) 96 04/23/20 12:00 91 04/23/20 12:00 97.6 108 19 110/70 (83) 93 Intake and Output 04/23/20 04/24/20 19:00 07:00 Intake Total 1425 ml 520 ml Output Total 1100 ml Balance 1425 ml -580 ml Free Water 300 ml 400 ml IV Total 525 ml Tube Feeding 600 ml 120 ml Output Urine Total 1000 ml Emesis 100 ml # Bowel Movements 3 8 Laboratory Tests 04/23/20 11:26: POC Whole Blood Glucose [Pending] 04/23/20 17:19: POC Whole Blood Glucose 110H 04/23/20 18:00: White Blood Count 12.1H, Red Blood Count 2.97L, Hemoglobin 8.6L, Hematocrit 26.7L, Mean Corpuscular Volume 90, Mean Corpuscular Hemoglobin 29.1, Mean Corpuscular Hemoglobin Concent 32.3, Red Cell Distribution Width 14.6, Platelet Count 306, Mean Platelet Volume 5.6L, Neutrophils (%) (Auto) 82.5H, Lymphocytes (%) (Auto) 10.4L, Monocytes (%) (Auto) 4.2, Eosinophils (%) (Auto) 1.7, Basophils (%) (Auto) 1.2 04/24/20 00:00: White Blood Count [Pending], Red Blood Count [Pending], Hemoglobin [Pending], Hematocrit [Pending], Mean Corpuscular Volume [Pending], Mean Corpuscular Hemoglobin [Pending], Mean Corpuscular Hemoglobin Concent [Pending], Red Cell Distribution Width [Pending], Platelet Count [Pending], Mean Platelet Volume [Pending], Neutrophils (%) (Auto) [Pending], Lymphocytes (%) (Auto) [Pending], Monocytes (%) (Auto) [Pending], Eosinophils (%) (Auto) [Pending], Basophils (%) (Auto) [Pending], Sodium Level [Pending], Potassium Level [Pending], Chloride Level [Pending], Carbon Dioxide Level [Pending], Blood Urea Nitrogen [Pending], Creatinine [Pending], Estimat Glomerular Filtration Rate [Pending], Glucose Level [Pending], Calcium Level [Pending], Phosphorus Level [Pending], Magnesium Level [Pending], Total Bilirubin [Pending], Aspartate Amino Transf (AST/SGOT) [Pending], Alanine Aminotransferase (ALT/SGPT) [Pending], Alkaline Phosphatase [Pending], Total Protein [Pending], Albumin [Pending], Globulin [Pending] Height (Feet): 5 Height (Inches): 5.00 Weight (Pounds): 201 General Appearance: no apparent distress EENT: normal ENT inspection Neck: supple Cardiovascular: normal rate Respiratory/Chest: decreased breath sounds Abdomen: hypoactive bowel sounds Extremities: non-tender Assessment/Plan Status: stable, unchanged Assessment/Plan: 1. History of hypertension. 2. Diabetes. 3. CVA. 4. UTI. 5. Colitis. 6. Endometrial cancer. no recurrent gib s/p PEG GTF monitor for residuals>>>> add reglan 5 mg Q6 given elevated residuals hematuria care per urology fu cardiology recs Nima Park MD Apr 24, 2020 08:33
[2020-04-24 08:49] LABS: BASOPHILS % (AUTO) 1.1 % (0.0-2.0); HEMATOCRIT 24.5 % (37.0-47.0); HEMOGLOBIN 8.2 G/DL (12.0-16.0); MEAN CORPUSCULAR VOLUME 86 FL (80-99); MONOCYTES % (AUTO) 7.5 % (1.0-10.0); NEUTROPHILS % (AUTO) 80.3 % (45.0-75.0); PLATELET COUNT 250 K/UL (150-450); RED BLOOD COUNT 2.84 M/UL (4.20-5.40); RED CELL DISTRIBUTION WIDTH 13.7 % (11.6-14.8); WHITE BLOOD COUNT 10.1 K/UL (4.8-10.8)
[2020-04-24] MEDS: Pantoprazole Inj IVP SCH (08:57)
[2020-04-24] MEDS: Ascorbic Acid 500mg tab ORAL SCH ×2 (08:57→17:22)
[2020-04-24] MEDS: Aspirin Baby 81mg NG SCH (08:57)
--- NOTE | 2020-04-24 09:00 | NUR ---
NURSE NOTES: GT feeding resumed at 20 mL/hr. No residual on aspiration. GT flushed with 100 mL. Patient denies abdominal discomfort.
[2020-04-24 09:06] LABS: PHOSPHORUS 2.6 MG/DL (2.5-4.9)
[2020-04-24] MEDS: Enoxaparin 40mg Inj SUBQ SCH (09:16)
[2020-04-24] MEDS: Zinc Sulfate 220mg ORAL SCH (09:17)
[2020-04-24 09:24] LABS: ALANINE AMINOTRANSFERASE 19 U/L (12-78); ALBUMIN 2.3 G/DL (3.4-5.0); ALBUMIN/GLOBULIN RATIO 0.7 (1.0-2.7); ALKALINE PHOSPHATASE 77 U/L (46-116); ANION GAP 9 mmol/L (5-15); ASPARTATE AMINO TRANSFERASE 23 U/L (15-37); BILIRUBIN,TOTAL 0.4 MG/DL (0.2-1.0); BLOOD UREA NITROGEN 9 mg/dL (7-18); CALCIUM 8.4 MG/DL (8.5-10.1); CARBON DIOXIDE 25 MMOL/L (21-32); CHLORIDE 102 MMOL/L (98-107); CREATININE 0.5 MG/DL (0.55-1.30); POTASSIUM 4.3 MMOL/L (3.5-5.1); SODIUM 135 MMOL/L (136-145)
--- NOTE | 2020-04-24 10:09 | Urology Progress Note ---
Assessment/Plan Status: stable, unchanged Assessment/Plan: 1. Gross hematuria. 2. UTI. 3. Proteinuria. 4. Urinary retention. 5. Probable neurogenic bladder. 6. Probable cystitis. 7. Possible adrenal adenoma. 8. Acute kidney injury history, which is improved. 9. Sepsis history. monitor clinically mcmanus hand irrigated and do PRN will consider larger mcmanus or CBI if needed abx as ordered on ASA and lovenox, hold if hematuria worsens IVC filter placed monitor h/h renal fxn stable cysto at some point electively Subjective Allergies: Coded Allergies: No Known Allergies (Unverified , 03/11/19) Subjective all noted nurses hand irrigated mcmanus Objective Last 24 Hour Vital Signs Date Time Temp Pulse Resp B/P (MAP) Pulse Ox O2 Delivery O2 Flow Rate FiO2 04/24/20 08:11 Nasal Cannula 3.0 04/24/20 08:00 100 04/24/20 07:56 98.1 72 18 123/62 (82) 93 04/24/20 04:00 97.4 122 24 119/59 (79) 98 04/24/20 04:00 104 04/24/20 00:00 97.7 124 24 145/68 (93) 98 04/24/20 00:00 112 04/23/20 21:00 Nasal Cannula 3.0 04/23/20 20:00 98.0 119 24 141/77 (98) 97 04/23/20 20:00 124 04/23/20 16:00 110 04/23/20 16:00 98.6 104 19 119/62 (81) 96 04/23/20 12:00 91 04/23/20 12:00 97.6 108 19 110/70 (83) 93 Intake and Output 04/23/20 04/24/20 19:00 07:00 Intake Total 1425 ml 520 ml Output Total 1100 ml Balance 1425 ml -580 ml Free Water 300 ml 400 ml IV Total 525 ml Tube Feeding 600 ml 120 ml Output Urine Total 1000 ml Emesis 100 ml # Bowel Movements 3 8 Microbiology Date/Time Source Procedure Growth Status 04/20/20 12:50 Nasopharynx SARS-CoV-2 RdRp Gene Assay - Final Complete 04/12/20 19:30 Blood Blood Culture - Final NO GROWTH AFTER 5 DAYS Complete 04/09/20 08:00 Urine,Clean Catch Urine Culture - Final Enterococcus Faecium - Vre Complete 04/08/20 15:55 Rectum VRE Culture - Final Enterococcus Faecium - Vre Complete Current Medications Medications (Trade) Dose Ordered Sig/Jere Route PRN Reason Start Time Stop Time Status Last Admin Dose Admin Acetaminophen (Tylenol) 650 mg Q4H PRN ORAL fever 04/08/20 19:00 05/08/20 18:59 04/19/20 20:57 Ascorbic Acid (Vitamin C) 500 mg TWICE A DAY ORAL 04/14/20 18:00 05/14/20 17:59 04/24/20 08:57 Aspirin (ASA) 81 mg DAILY NG 04/18/20 18:45 06/02/20 18:44 04/24/20 08:57 Chlorhexidine Gluconate (Geno-Hex 2%) 1 applic DAILY@1999 TOPIC 04/08/20 20:00 07/07/20 19:59 04/23/20 20:54 Dextrose (Dextrose 50%) 25 ml Q30M PRN IV Hypoglycemia 04/17/20 12:00 07/16/20 11:59 Dextrose (Dextrose 50%) 50 ml Q30M PRN IV Hypoglycemia 04/17/20 12:00 07/16/20 11:59 Dextrose/ Electrolytes 1,000 ml @ 75 mls/hr [id number] IV 04/08/20 22:30 05/08/20 22:29 04/24/20 01:01 Enoxaparin Sodium (Lovenox) 40 mg DAILY SUBQ 04/14/20 20:00 07/13/20 19:59 04/24/20 09:16 Insulin Aspart (NovoLOG) Q6H SUBQ 04/17/20 12:00 07/16/20 11:59 Linezolid (Zyvox) 600 mg EVERY 12 HOURS ORAL 04/20/20 21:00 04/25/20 20:59 04/24/20 08:57 Metoclopramide HCl (Reglan) 5 mg Q6H PRN IVP Nausea & Vomiting 04/24/20 08:30 05/24/20 08:29 04/24/20 08:57 Metoprolol Tartrate (Lopressor) 5 mg Q1H PRN IVP spb more than 120 04/08/20 19:00 07/07/20 18:59 Multivitamins (Multivitamins) 1 tab DAILY ORAL 04/15/20 09:00 05/15/20 08:59 04/24/20 08:57 Ondansetron HCl (Zofran) 4 mg Q6H PRN IVP Nausea & Vomiting 04/08/20 19:00 05/08/20 18:59 Pantoprazole (Protonix) 40 mg DAILY IVP 04/24/20 09:00 05/24/20 08:59 04/24/20 08:57 Polyethylene Glycol (Miralax) 17 gm BEDTIME ORAL 04/09/20 21:00 05/09/20 20:59 04/23/20 20:54 Polyethylene Glycol (Miralax) 17 gm DAILYPRN PRN ORAL Constipation 04/08/20 19:00 05/08/20 18:59 Zinc Sulfate (Zinc Sulfate) 220 mg DAILY ORAL 04/15/20 09:00 04/25/20 08:59 04/24/20 09:17 Laboratory Tests 04/23/20 11:26: POC Whole Blood Glucose [Pending] 04/23/20 17:19: POC Whole Blood Glucose 110H 04/23/20 18:00: White Blood Count 12.1H, Red Blood Count 2.97L, Hemoglobin 8.6L, Hematocrit 26.7L, Mean Corpuscular Volume 90, Mean Corpuscular Hemoglobin 29.1, Mean Corpuscular Hemoglobin Concent 32.3, Red Cell Distribution Width 14.6, Platelet Count 306, Mean Platelet Volume 5.6L, Neutrophils (%) (Auto) 82.5H, Lymphocytes (%) (Auto) 10.4L, Monocytes (%) (Auto) 4.2, Eosinophils (%) (Auto) 1.7, Basophils (%) (Auto) 1.2 04/24/20 00:00: White Blood Count 10.1, Red Blood Count 2.84L, Hemoglobin 8.2L, Hematocrit 24.5L , Mean Corpuscular Volume 86, Mean Corpuscular Hemoglobin 28.9, Mean Corpuscular Hemoglobin Concent 33.6, Red Cell Distribution Width 13.7, Platelet Count 250, Mean Platelet Volume 5.1L, Neutrophils (%) (Auto) 80.3H, Lymphocytes (%) (Auto) 10.0L, Monocytes (%) (Auto) 7.5, Eosinophils (%) (Auto) 1.0, Basophils (%) (Auto) 1.1, Sodium Level 135L, Potassium Level 4.3, Chloride Level 102, Carbon Dioxide Level 25, Anion Gap 9, Blood Urea Nitrogen 9, Creatinine 0.5L, Estimat Glomerular Filtration Rate > 60, Glucose Level 90, Calcium Level 8.4L, Phosp horus Level 2.6, Magnesium Level 1.8, Total Bilirubin 0.4, Aspartate Amino Transf (AST/SGOT) 23, Alanine Aminotransferase (ALT/SGPT) 19, Alkaline Phosphatase 77, Total Protein 5.5L, Albumin 2.3L, Globulin 3.2, Albumin/Globulin Ratio 0.7L Height (Feet): 5 Height (Inches): 5.00 Weight (Pounds): 201 Objective exam stable mcmanus indwelling urine blood-tinged/payam, clearer LE duplex (04/19) (+) DVT Bong Valerio MD Apr 24, 2020 10:09
--- NOTE | 2020-04-24 10:51 | Cardiology Progress Note ---
Assessment/Plan Assessment/Plan hs of hypertension, diabetes previous CVA, COVID infection Sinus tachy (incorrect diagnosis of afib with tachycardia) hypotension, a/ hemorraghic shock vaginal bleeding. anemia s/p prbc tx pt in covid isolation exam deferred tele personally reviewed sinus supportive care s/p ivc filter keep on tele monitoring bp seem ok remains on lmwh for dvt ppx still Subjective Subjective covid pt in soloalion Received patient in bed. Awake, Alert x1. On 3 L via NC. No signs of pain noted at this time. GT patent and flushed, feeding held d/t emesis x1 and residual >150 cc. F/c in place with hematuria. Bilateral soft wrist restraints, hands are warm and normal color for ethnicity with active ROM. Objective Last 24 Hour Vital Signs Date Time Temp Pulse Resp B/P (MAP) Pulse Ox O2 Delivery O2 Flow Rate FiO2 04/24/20 08:11 Nasal Cannula 3.0 04/24/20 08:00 100 04/24/20 07:56 98.1 72 18 123/62 (82) 93 04/24/20 04:00 97.4 122 24 119/59 (79) 98 04/24/20 04:00 104 04/24/20 00:00 97.7 124 24 145/68 (93) 98 04/24/20 00:00 112 04/23/20 21:00 Nasal Cannula 3.0 04/23/20 20:00 98.0 119 24 141/77 (98) 97 04/23/20 20:00 124 04/23/20 16:00 110 04/23/20 16:00 98.6 104 19 119/62 (81) 96 04/23/20 12:00 91 04/23/20 12:00 97.6 108 19 110/70 (83) 93 Intake and Output 04/23/20 04/24/20 19:00 07:00 Intake Total 1425 ml 520 ml Output Total 1100 ml Balance 1425 ml -580 ml Free Water 300 ml 400 ml IV Total 525 ml Tube Feeding 600 ml 120 ml Output Urine Total 1000 ml Emesis 100 ml # Bowel Movements 3 8 Laboratory Tests Test 04/23/20 11:26 04/23/20 17:19 04/23/20 18:00 04/24/20 00:00 POC Whole Blood Glucose Pending 110 MG/DL (74-106) H White Blood Count 12.1 K/UL (4.8-10.8) H 10.1 K/UL (4.8-10.8) Red Blood Count 2.97 M/UL (4.20-5.40) L 2.84 M/UL (4.20-5.40) L Hemoglobin 8.6 G/DL (12.0-16.0) L 8.2 G/DL (12.0-16.0) L Hematocrit 26.7 % (37.0-47.0) L 24.5 % (37.0-47.0) L Mean Corpuscular Volume 90 FL (80-99) 86 FL (80-99) Mean Corpuscular Hemoglobin 29.1 PG (27.0-31.0) 28.9 PG (27.0-31.0) Mean Corpuscular Hemoglobin Concent 32.3 G/DL (32.0-36.0) 33.6 G/DL (32.0-36.0) Red Cell Distribution Width 14.6 % (11.6-14.8) 13.7 % (11.6-14.8) Platelet Count 306 K/UL (150-450) 250 K/UL (150-450) Mean Platelet Volume 5.6 FL (6.5-10.1) L 5.1 FL (6.5-10.1) L Neutrophils (%) (Auto) 82.5 % (45.0-75.0) H 80.3 % (45.0-75.0) H Lymphocytes (%) (Auto) 10.4 % (20.0-45.0) L 10.0 % (20.0-45.0) L Monocytes (%) (Auto) 4.2 % (1.0-10.0) 7.5 % (1.0-10.0) Eosinophils (%) (Auto) 1.7 % (0.0-3.0) 1.0 % (0.0-3.0) Basophils (%) (Auto) 1.2 % (0.0-2.0) 1.1 % (0.0-2.0) Sodium Level 135 MMOL/L (136-145) L Potassium Level 4.3 MMOL/L (3.5-5.1) Chloride Level 102 MMOL/L (98-107) Carbon Dioxide Level 25 MMOL/L (21-32) Anion Gap 9 mmol/L (5-15) Blood Urea Nitrogen 9 mg/dL (7-18) Creatinine 0.5 MG/DL (0.55-1.30) L Estimat Glomerular Filtration Rate > 60 mL/min (>60) Glucose Level 90 MG/DL (74-106) Calcium Level 8.4 MG/DL (8.5-10.1) L Phosphorus Level 2.6 MG/DL (2.5-4.9) Magnesium Level 1.8 MG/DL (1.8-2.4) Total Bilirubin 0.4 MG/DL (0.2-1.0) Aspartate Amino Transf (AST/SGOT) 23 U/L (15-37) Alanine Aminotransferase (ALT/SGPT) 19 U/L (12-78) Alkaline Phosphatase 77 U/L (46-116) Total Protein 5.5 G/DL (6.4-8.2) L Albumin 2.3 G/DL (3.4-5.0) L Globulin 3.2 g/dL Albumin/Globulin Ratio 0.7 (1.0-2.7) L Objective exam deferred as in isolation with active covid infection Wale Wu MD Apr 24, 2020 10:51
--- NOTE | 2020-04-24 11:55 | Nephrology Progress Note ---
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 Renal parameters stable. Patient full code. Continue per consultants. April 23: Labs reviewed. Renal parameters stable. Continue per consultants. April 22: Status quo. Labs reviewed. Renal parameters stable. Continue per consultants. April 21: Status quo. Renal parameters stable. Continue per consultants. April 20: Lab reviewed. Renal parameters stable. April 19: Labs reviewed. Electrolytes and renal parameters stable. April 18: Labs reviewed. Electrolytes and renal parameters stable. April 17: Lab reviewed. Stable from renal standpoint of view April 16: Labs reviewed. Remains stable from renal standpoint of view. Continue per consultants. April 15: Labs reviewed. Electrolyte abnormalities addressed. Continue as is. April 14: Labs reviewed. Low phosphorus and low magnesium corrected. Continue per consultants. Blood pressure remains stable. April 13: Electrolytes within normal limit. Renal parameters within normal limit. Continue per consultants. April 12: Electrolyte abnormalities noted and addressed. Continue per consultants Magnesium IV supplement as needed Potassium IV supplement as needed Phosphorus IV supplement as needed Monitor electrolytes Monitor hemoglobin hematocrit IV Protonix Adjust IV fluid Antibiotics per consultants Subjective ROS Limited/Unobtainable: No Constitutional: Reports: malaise Objective Objective Last 24 Hour Vital Signs Date Time Temp Pulse Resp B/P (MAP) Pulse Ox O2 Delivery O2 Flow Rate FiO2 04/24/20 08:11 Nasal Cannula 3.0 04/24/20 08:00 100 04/24/20 07:56 98.1 72 18 123/62 (82) 93 04/24/20 04:00 97.4 122 24 119/59 (79) 98 04/24/20 04:00 104 04/24/20 00:00 97.7 124 24 145/68 (93) 98 04/24/20 00:00 112 04/23/20 21:00 Nasal Cannula 3.0 04/23/20 20:00 98.0 119 24 141/77 (98) 97 04/23/20 20:00 124 04/23/20 16:00 110 04/23/20 16:00 98.6 104 19 119/62 (81) 96 04/23/20 12:00 91 04/23/20 12:00 97.6 108 19 110/70 (83) 93 Intake and Output 04/23/20 04/24/20 19:00 07:00 Intake Total 1425 ml 520 ml Output Total 1100 ml Balance 1425 ml -580 ml Free Water 300 ml 400 ml IV Total 525 ml Tube Feeding 600 ml 120 ml Output Urine Total 1000 ml Emesis 100 ml # Bowel Movements 3 8 Laboratory Tests 04/23/20 17:19: POC Whole Blood Glucose 110H 04/23/20 18:00: White Blood Count 12.1H, Red Blood Count 2.97L, Hemoglobin 8.6L, Hematocrit 26.7L, Mean Corpuscular Volume 90, Mean Corpuscular Hemoglobin 29.1, Mean Corpuscular Hemoglobin Concent 32.3, Red Cell Distribution Width 14.6, Platelet Count 306, Mean Platelet Volume 5.6L, Neutrophils (%) (Auto) 82.5H, Lymphocytes (%) (Auto) 10.4L, Monocytes (%) (Auto) 4.2, Eosinophils (%) (Auto) 1.7, Basophils (%) (Auto) 1.2 04/24/20 00:00: White Blood Count 10.1, Red Blood Count 2.84L, Hemoglobin 8.2L, Hematocrit 24.5L , Mean Corpuscular Volume 86, Mean Corpuscular Hemoglobin 28.9, Mean Corpuscular Hemoglobin Concent 33.6, Red Cell Distribution Width 13.7, Platelet Count 250, Mean Platelet Volume 5.1L, Neutrophils (%) (Auto) 80.3H, Lymphocytes (%) (Auto) 10.0L, Monocytes (%) (Auto) 7.5, Eosinophils (%) (Auto) 1.0, Basophils (%) (Auto) 1.1, Sodium Level 135L, Potassium Level 4.3, Chloride Level 102, Carbon Dioxide Level 25, Anion Gap 9, Blood Urea Nitrogen 9, Creatinine 0.5L, Estimat Glomerular Filtration Rate > 60, Glucose Level 90, Calcium Level 8.4L, Phosphorus Level 2.6, Magnesium Level 1.8, Total Bilirubin 0.4, Aspartate Amino Transf (AST/SGOT) 23, Alanine Aminotransferase (ALT/SGPT) 19, Alkaline Phosphatase 77, Total Protein 5.5L, Albumin 2.3L, Globulin 3.2, Albumin/Globulin Ratio 0.7L 04/24/20 11:24: POC Whole Blood Glucose [Pending] Height (Feet): 5 Height (Inches): 5.00 Weight (Pounds): 201 General Appearance: no apparent distress Objective No change Steven Edwards MD Apr 24, 2020 11:55
[2020-04-24 12:00] VITALS: BP 120/52
--- NOTE | 2020-04-24 12:56 | Pulmonology Progress Note ---
Subjective ROS Limited/Unobtainable: No Constitutional: Reports: no symptoms, fatigue HEENT: Repors: no symptoms Allergies: Coded Allergies: No Known Allergies (Unverified , 03/11/19) Objective Last 24 Hour Vital Signs Date Time Temp Pulse Resp B/P (MAP) Pulse Ox O2 Delivery O2 Flow Rate FiO2 04/24/20 12:00 97.9 110 20 120/52 (74) 100 04/24/20 08:11 Nasal Cannula 3.0 04/24/20 08:00 100 04/24/20 07:56 98.1 72 18 123/62 (82) 93 04/24/20 04:00 97.4 122 24 119/59 (79) 98 04/24/20 04:00 104 04/24/20 00:00 97.7 124 24 145/68 (93) 98 04/24/20 00:00 112 04/23/20 21:00 Nasal Cannula 3.0 04/23/20 20:00 98.0 119 24 141/77 (98) 97 04/23/20 20:00 124 04/23/20 16:00 110 04/23/20 16:00 98.6 104 19 119/62 (81) 96 Intake and Output 04/23/20 04/24/20 19:00 07:00 Intake Total 1425 ml 520 ml Output Total 1100 ml Balance 1425 ml -580 ml Free Water 300 ml 400 ml IV Total 525 ml Tube Feeding 600 ml 120 ml Output Urine Total 1000 ml Emesis 100 ml # Bowel Movements 3 8 General Appearance: WD/WN HEENT: normocephalic, atraumatic Respiratory: chest wall non-tender, lungs clear Breasts: no masses Cardiovascular: normal peripheral pulses Abdomen: normal bowel sounds, soft, non tender Extremities: no cyanosis 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, alert Lymphatic: no neck adenopathy Laboratory Tests 04/23/20 17:19: POC Whole Blood Glucose 110H 04/23/20 18:00: White Blood Count 12.1H, Red Blood Count 2.97L, Hemoglobin 8.6L, Hematocrit 26.7L, Mean Corpuscular Volume 90, Mean Corpuscular Hemoglobin 29.1, Mean Corpuscular Hemoglobin Concent 32.3, Red Cell Distribution Width 14.6, Platelet Count 306, Mean Platelet Volume 5.6L, Neutrophils (%) (Auto) 82.5H, Lymphocytes (%) (Auto) 10.4L, Monocytes (%) (Auto) 4.2, Eosinophils (%) (Auto) 1.7, Basophils (%) (Auto) 1.2 04/24/20 00:00: White Blood Count 10.1, Red Blood Count 2.84L, Hemoglobin 8.2L, Hematocrit 24.5L , Mean Corpuscular Volume 86, Mean Corpuscular Hemoglobin 28.9, Mean Corpuscular Hemoglobin Concent 33.6, Red Cell Distribution Width 13.7, Platelet Count 250, Mean Platelet Volume 5.1L, Neutrophils (%) (Auto) 80.3H, Lymphocytes (%) (Auto) 10.0L, Monocytes (%) (Auto) 7.5, Eosinophils (%) (Auto) 1.0, Basophils (%) (Auto) 1.1, Sodium Level 135L, Potassium Level 4.3, Chloride Level 102, Carbon Dioxide Level 25, Anion Gap 9, Blood Urea Nitrogen 9, Creatinine 0.5L, Estimat Glomerular Filtration Rate > 60, Glucose Level 90, Calcium Level 8.4L, Phosphorus Level 2.6, Magnesium Level 1.8, Total Bilirubin 0.4, Aspartate Amino Transf (AST/SGOT) 23, Alanine Aminotransferase (ALT/SGPT) 19, Alkaline Phosphatase 77, Total Protein 5.5L, Albumin 2.3L, Globulin 3.2, Albumin/Globulin Ratio 0.7L 04/24/20 11:24: POC Whole Blood Glucose [Pending] Current Medications Medications (Trade) Dose Ordered Sig/Jere Route PRN Reason Start Time Stop Time Status Last Admin Dose Admin Acetaminophen (Tylenol) 650 mg Q4H PRN ORAL fever 04/08/20 19:00 05/08/20 18:59 04/19/20 20:57 Ascorbic Acid (Vitamin C) 500 mg TWICE A DAY ORAL 04/14/20 18:00 05/14/20 17:59 04/24/20 08:57 Aspirin (ASA) 81 mg DAILY NG 04/18/20 18:45 06/02/20 18:44 04/24/20 08:57 Chlorhexidine Gluconate (Geno-Hex 2%) 1 applic DAILY@1999 TOPIC 04/08/20 20:00 07/07/20 19:59 04/23/20 20:54 Dextrose (Dextrose 50%) 25 ml Q30M PRN IV Hypoglycemia 04/17/20 12:00 07/16/20 11:59 Dextrose (Dextrose 50%) 50 ml Q30M PRN IV Hypoglycemia 04/17/20 12:00 07/16/20 11:59 Dextrose/ Electrolytes 1,000 ml @ 75 mls/hr [id number] IV 04/08/20 22:30 05/08/20 22:29 04/24/20 01:01 Enoxaparin Sodium (Lovenox) 40 mg DAILY SUBQ 04/14/20 20:00 07/13/20 19:59 04/24/20 09:16 Insulin Aspart (NovoLOG) Q6H SUBQ 04/17/20 12:00 07/16/20 11:59 Linezolid (Zyvox) 600 mg EVERY 12 HOURS ORAL 04/20/20 21:00 04/25/20 20:59 04/24/20 08:57 Metoclopramide HCl (Reglan) 5 mg Q6H PRN IVP Nausea & Vomiting 04/24/20 08:30 05/24/20 08:29 04/24/20 08:57 Metoprolol Tartrate (Lopressor) 5 mg Q1H PRN IVP spb more than 120 04/08/20 19:00 07/07/20 18:59 Multivitamins (Multivitamins) 1 tab DAILY ORAL 04/15/20 09:00 05/15/20 08:59 04/24/20 08:57 Ondansetron HCl (Zofran) 4 mg Q6H PRN IVP Nausea & Vomiting 04/08/20 19:00 05/08/20 18:59 Pantoprazole (Protonix) 40 mg DAILY IVP 04/24/20 09:00 05/24/20 08:59 04/24/20 08:57 Polyethylene Glycol (Miralax) 17 gm BEDTIME ORAL 04/09/20 21:00 05/09/20 20:59 04/23/20 20:54 Polyethylene Glycol (Miralax) 17 gm DAILYPRN PRN ORAL Constipation 04/08/20 19:00 05/08/20 18:59 Zinc Sulfate (Zinc Sulfate) 220 mg DAILY ORAL 04/15/20 09:00 04/25/20 08:59 10/4/20 09:17 Assessment/Plan Problems: (1) Hemorrhagic shock (2) Sepsis (3) Bacteremia (4) History of CVA (cerebrovascular accident) (5) Rectal bleeding (6) Hematuria Assessment/Plan repeat cxr in am looks comfortable somnolent ivc filter in place on Zyvox f/u ID recommendations check electrolytes GI note appreciated continue Decadron dvt prophylaxis. Marina Buitrago MD Apr 24, 2020 12:56
--- NOTE | 2020-04-24 15:53 | Surgery Progress Note ---
Surgery Progress Note Subjective Additional Comments no acute events Objective Last 24 Hour Vital Signs Date Time Temp Pulse Resp B/P (MAP) Pulse Ox O2 Delivery O2 Flow Rate FiO2 04/24/20 12:00 97.9 110 20 120/52 (74) 100 04/24/20 12:00 102 04/24/20 08:11 Nasal Cannula 3.0 04/24/20 08:00 100 04/24/20 07:56 98.1 72 18 123/62 (82) 93 04/24/20 04:00 97.4 122 24 119/59 (79) 98 04/24/20 04:00 104 04/24/20 00:00 97.7 124 24 145/68 (93) 98 04/24/20 00:00 112 04/23/20 21:00 Nasal Cannula 3.0 04/23/20 20:00 98.0 119 24 141/77 (98) 97 04/23/20 20:00 124 04/23/20 16:00 110 04/23/20 16:00 98.6 104 19 119/62 (81) 96 I&O Intake and Output 04/23/20 04/24/20 19:00 07:00 Intake Total 1425 ml 520 ml Output Total 1100 ml Balance 1425 ml -580 ml Free Water 300 ml 400 ml IV Total 525 ml Tube Feeding 600 ml 120 ml Output Urine Total 1000 ml Emesis 100 ml # Bowel Movements 3 8 Dressing: other Wound: other Cardiovascular: RSR Respiratory: decreased breath sounds Abdomen: soft, non-tender, present bowel sounds Extremities: no tenderness, no cyanosis Laboratory Tests Test 04/23/20 17:19 04/23/20 18:00 04/24/20 00:00 04/24/20 11:24 POC Whole Blood Glucose 110 MG/DL (74-106) H Pending White Blood Count 12.1 K/UL (4.8-10.8) H 10.1 K/UL (4.8-10.8) Red Blood Count 2.97 M/UL (4.20-5.40) L 2.84 M/UL (4.20-5.40) L Hemoglobin 8.6 G/DL (12.0-16.0) L 8.2 G/DL (12.0-16.0) L Hematocrit 26.7 % (37.0-47.0) L 24.5 % (37.0-47.0) L Mean Corpuscular Volume 90 FL (80-99) 86 FL (80-99) Mean Corpuscular Hemoglobin 29.1 PG (27.0-31.0) 28.9 PG (27.0-31.0) Mean Corpuscular Hemoglobin Concent 32.3 G/DL (32.0-36.0) 33.6 G/DL (32.0-36.0) Red Cell Distribution Width 14.6 % (11.6-14.8) 13.7 % (11.6-14.8) Platelet Count 306 K/UL (150-450) 250 K/UL (150-450) Mean Platelet Volume 5.6 FL (6.5-10.1) L 5.1 FL (6.5-10.1) L Neutrophils (%) (Auto) 82.5 % (45.0-75.0) H 80.3 % (45.0-75.0) H Lymphocytes (%) (Auto) 10.4 % (20.0-45.0) L 10.0 % (20.0-45.0) L Monocytes (%) (Auto) 4.2 % (1.0-10.0) 7.5 % (1.0-10.0) Eosinophils (%) (Auto) 1.7 % (0.0-3.0) 1.0 % (0.0-3.0) Basophils (%) (Auto) 1.2 % (0.0-2.0) 1.1 % (0.0-2.0) Sodium Level 135 MMOL/L (136-145) L Potassium Level 4.3 MMOL/L (3.5-5.1) Chloride Level 102 MMOL/L (98-107) Carbon Dioxide Level 25 MMOL/L (21-32) Anion Gap 9 mmol/L (5-15) Blood Urea Nitrogen 9 mg/dL (7-18) Creatinine 0.5 MG/DL (0.55-1.30) L Estimat Glomerular Filtration Rate > 60 mL/min (>60) Glucose Level 90 MG/DL (74-106) Calcium Level 8.4 MG/DL (8.5-10.1) L Phosphorus Level 2.6 MG/DL (2.5-4.9) Magnesium Level 1.8 MG/DL (1.8-2.4) Total Bilirubin 0.4 MG/DL (0.2-1.0) Aspartate Amino Transf (AST/SGOT) 23 U/L (15-37) Alanine Aminotransferase (ALT/SGPT) 19 U/L (12-78) Alkaline Phosphatase 77 U/L (46-116) Total Protein 5.5 G/DL (6.4-8.2) L Albumin 2.3 G/DL (3.4-5.0) L Globulin 3.2 g/dL Albumin/Globulin Ratio 0.7 (1.0-2.7) L Plan Problems: (1) Hematuria (2) Rectal bleeding Assessment & Plan: 64-year-old female identified to have rectal bleeding on admission. GI aware surgery aware no active bleeding at this time hemoglobin noted. Transfuse PRBC as needed. Pending scope consideration. 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 CURRENT DIET:[facility] MED, pureed moist w/ thin liquids PO DIET RECOMMENDATIONS: Liberalized REGULAR w/ poor PO ([facility] MED+LOW NA w/ PO intake >50%) ADDITIONAL RECOMMENDATIONS: * Per SNF: HT=64" FO=[id number] (04/05/20) -> rec daily calibrated bedscale wt, monitor trend Possible wt loss of 68 lbs/29% in 13 months * W/ poor PO intake, add Glucerna TID w/ meals * Wound healing: Add MVI x 1, Vit C 500mg BID, ZnSO4 220mg QD x 10 days Woody (QD for now- increase to BID w/ good acceptance) added to tray * Monitor lytes, replete as needed (low k and mag) (3) Hemorrhagic shock (4) Acute CVA (cerebrovascular accident) (5) Septic shock (6) Anemia (7) Sepsis (8) Altered mental status (9) Atrial fibrillation with RVR (10) COVID-19 Assessment & Plan: ++ as per ID and pulm cxr noted (11) History of CVA (cerebrovascular accident) (12) Decubitus skin ulcer Assessment & Plan: Patient identified on admission to have a 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 apply therahoney to areas of slough. apply mositure barrier paste on the periwound. cover with optifoam dressing. change Q3D and PRN. Apply cavilon on both heels& malleoli. Cover each site with optifoam dressing. Change Q7D and PRN. DAILY ESTIMATED NEEDS: Needs based on Obesity, cardiac/ 67.6kg abw 22-27 kcals/kg 6423-8195 total kcals 1.25-1.5 g protein/kg 85-101 g total protein 25-30 mL/kg 5977-8378 total fluid mLs NUTRITION DIAGNOSIS: * Swallowing difficulty R/T dysphagia, h/o CVA, now s/p PEG placement. 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 CURRENT TF:Glucerna 1.2 @55 ENTERAL NUTRITION RECOMMENDATIONS: Glucerna 1.2 goal of 60ml/hr x24 hrs to provide 1440ml, 1728 kcal, 86g pro, 1159 ml free H2O Rec to Increase current TF to goal of 60ml/hr to meet 100% est needs Flush per MD/ HOB over 30 degrees ADDITIONAL RECOMMENDATIONS: * Per SNF: HT=64" JI=[id number] (04/05/20) -> rec daily calibrated bedscale wt, monitor trend Possible wt loss of 68 lbs/29% in 13 months * W/ poor PO intake, add Glucerna TID-now s/p PEG * Wound healing: Add MVI x 1, Vit C 500mg BID, ZnSO4 220mg QD x 10 days Woody BID * Monitor lytes, replete as needed Elian Ren Apr 24, 2020 15:53
[2020-04-24 16:00] VITALS: BP 132/70
--- NOTE | 2020-04-24 17:55 | Internal Med Progress Note ---
Subjective Date of Service: Apr 24, 2020 Physician Name Tariq Murphy Attending Physician Dewayne Mendoza MD Current Medications Medications (Trade) Dose Ordered Sig/Jere Route PRN Reason Start Time Stop Time Status Last Admin Dose Admin Acetaminophen (Tylenol) 650 mg Q4H PRN ORAL fever 04/08/20 19:00 05/08/20 18:59 04/19/20 20:57 Ascorbic Acid (Vitamin C) 500 mg TWICE A DAY ORAL 04/14/20 18:00 05/14/20 17:59 04/24/20 17:22 Aspirin (ASA) 81 mg DAILY NG 04/18/20 18:45 06/02/20 18:44 04/24/20 08:57 Chlorhexidine Gluconate (Geno-Hex 2%) 1 applic DAILY@1999 TOPIC 04/08/20 20:00 07/07/20 19:59 04/23/20 20:54 Dextrose (Dextrose 50%) 25 ml Q30M PRN IV Hypoglycemia 04/17/20 12:00 07/16/20 11:59 Dextrose (Dextrose 50%) 50 ml Q30M PRN IV Hypoglycemia 04/17/20 12:00 07/16/20 11:59 Dextrose/ Electrolytes 1,000 ml @ 75 mls/hr [id number] IV 04/08/20 22:30 05/08/20 22:29 04/24/20 15:10 Enoxaparin Sodium (Lovenox) 40 mg DAILY SUBQ 04/14/20 20:00 07/13/20 19:59 04/24/20 09:16 Insulin Aspart (NovoLOG) Q6H SUBQ 04/17/20 12:00 07/16/20 11:59 Linezolid (Zyvox) 600 mg EVERY 12 HOURS ORAL 04/20/20 21:00 04/25/20 20:59 04/24/20 08:57 Metoclopramide HCl (Reglan) 5 mg Q6H PRN IVP Nausea & Vomiting 04/24/20 08:30 05/24/20 08:29 04/24/20 08:57 Metoprolol Tartrate (Lopressor) 5 mg Q1H PRN IVP spb more than 120 04/08/20 19:00 07/07/20 18:59 Multivitamins (Multivitamins) 1 tab DAILY ORAL 04/15/20 09:00 10/25/20 08:59 04/24/20 08:57 Ondansetron HCl (Zofran) 4 mg Q6H PRN IVP Nausea & Vomiting 04/08/20 19:00 05/08/20 18:59 Pantoprazole (Protonix) 40 mg DAILY IVP 04/24/20 09:00 05/24/20 08:59 04/24/20 08:57 Polyethylene Glycol (Miralax) 17 gm BEDTIME ORAL 04/09/20 21:00 05/09/20 20:59 04/23/20 20:54 Polyethylene Glycol (Miralax) 17 gm DAILYPRN PRN ORAL Constipation 04/08/20 19:00 05/08/20 18:59 Zinc Sulfate (Zinc Sulfate) 220 mg DAILY ORAL 04/15/20 09:00 04/25/20 08:59 04/24/20 09:17 Allergies: Coded Allergies: No Known Allergies (Unverified , 03/11/19) ROS Limited/Unobtainable: Yes Subjective 64 YO F with inoperable uterine cancer admitted with tachycardia. Now atrial fibrillation with rapid ventricular rate. Also COVID 19 positive. Cover for Int Med-DR Mendoza. New DVT RLE Objective Last Vital Signs Date Time Temp Pulse Resp B/P (MAP) Pulse Ox O2 Delivery O2 Flow Rate FiO2 04/24/20 16:00 98.2 130 18 132/70 (90) 100 04/24/20 08:11 Nasal Cannula 3.0 Laboratory Tests Test 04/23/20 18:00 04/23/20 23:39 04/24/20 00:00 04/24/20 06:30 White Blood Count 12.1 K/UL (4.8-10.8) H 10.1 K/UL (4.8-10.8) Red Blood Count 2.97 M/UL (4.20-5.40) L 2.84 M/UL (4.20-5.40) L Hemoglobin 8.6 G/DL (12.0-16.0) L 8.2 G/DL (12.0-16.0) L Hematocrit 26.7 % (37.0-47.0) L 24.5 % (37.0-47.0) L Mean Corpuscular Volume 90 FL (80-99) 86 FL (80-99) Mean Corpuscular Hemoglobin 29.1 PG (27.0-31.0) 28.9 PG (27.0-31.0) Mean Corpuscular Hemoglobin Concent 32.3 G/DL (32.0-36.0) 33.6 G/DL (32.0-36.0) Red Cell Distribution Width 14.6 % (11.6-14.8) 13.7 % (11.6-14.8) Platelet Count 306 K/UL (150-450) 250 K/UL (150-450) Mean Platelet Volume 5.6 FL (6.5-10.1) L 5.1 FL (6.5-10.1) L Neutrophils (%) (Auto) 82.5 % (45.0-75.0) H 80.3 % (45.0-75.0) H Lymphocytes (%) (Auto) 10.4 % (20.0-45.0) L 10.0 % (20.0-45.0) L Monocytes (%) (Auto) 4.2 % (1.0-10.0) 7.5 % (1.0-10.0) Eosinophils (%) (Auto) 1.7 % (0.0-3.0) 1.0 % (0.0-3.0) Basophils (%) (Auto) 1.2 % (0.0-2.0) 1.1 % (0.0-2.0) POC Whole Blood Glucose Pending 114 MG/DL (74-106) H Sodium Level 135 MMOL/L (136-145) L Potassium Level 4.3 MMOL/L (3.5-5.1) Chloride Level 102 MMOL/L (98-107) Carbon Dioxide Level 25 MMOL/L (21-32) Anion Gap 9 mmol/L (5-15) Blood Urea Nitrogen 9 mg/dL (7-18) Creatinine 0.5 MG/DL (0.55-1.30) L Estimat Glomerular Filtration Rate > 60 mL/min (>60) Glucose Level 90 MG/DL (74-106) Calcium Level 8.4 MG/DL (8.5-10.1) L Phosphorus Level 2.6 MG/DL (2.5-4.9) Magnesium Level 1.8 MG/DL (1.8-2.4) Total Bilirubin 0.4 MG/DL (0.2-1.0) Aspartate Amino Transf (AST/SGOT) 23 U/L (15-37) Alanine Aminotransferase (ALT/SGPT) 19 U/L (12-78) Alkaline Phosphatase 77 U/L (46-116) Total Protein 5.5 G/DL (6.4-8.2) L Albumin 2.3 G/DL (3.4-5.0) L Globulin 3.2 g/dL Albumin/Globulin Ratio 0.7 (1.0-2.7) L Test 04/24/20 11:24 POC Whole Blood Glucose Pending Intake and Output 04/23/20 04/24/20 19:00 07:00 Intake Total 1425 ml 595 ml Output Total 1100 ml Balance 1425 ml -505 ml Free Water 300 ml 400 ml IV Total 525 ml 75 ml Tube Feeding 600 ml 120 ml Output Urine Total 1000 ml Emesis 100 ml # Bowel Movements 3 8 Objective PHYSICAL EXAMINATION: GENERAL: The patient awake, responsive, however altered and confused. The patient appears to be paler and chronically-ill appearing. HEAD AND NECK: Pupils are equal and reactive to light. Extraocular movements are intact. Neck was supple. No JVD. LUNGS: Bilateral air entry. Decreased air in the bases. HEART: S1, S2. Tachycardic, irregular. No murmur or gallop was appreciated. ABDOMEN: Soft, nondistended. Tenderness on the lower abdominal area. Mildly obese. EXTREMITIES: No cyanosis, clubbing, or edema. GENITOURINARY: The patient noted to have Lowe catheter with dark red urine collection in a Lowe catheter. NEUROLOGIC: Cranial nerves II through XII grossly intact. The patient moving all extremities equally. Sensory is intact. Gait was not able to assess due to the patient's status. RECTAL: Refused and deferred. PSYCHIATRIC: Mood and affect, unable to obtain due to the patient's status. Assessment/Plan Assessment/Plan ASSESSMENT: 1. COVID-19 pneumonia. 2. Altered mental status, most likely secondary to toxic metabolic encephalopathy. 3. Atrial fibrillation with rapid ventricular rate. 4. Anemia most likely secondary to acute blood loss. 5. Sepsis secondary to urinary tract infection as well as pneumonia. 6. Vaginal bleeding. 7. UTI=VRE 8. History of diabetes type 2. 9. Inoperable endometrial adenocarcinoma, status post brachytherapy. 10. Hypertension. 11. History of lacunar infarction. 12. Deep venous thrombisis Right leg PLAN: 1. Telemetry 2. Dr. Buitrago=Pulmonary/Critical Care 3. Dr. Wale uW = Cardiology. 4. antibiotic=linezolid; S/P vancomycin and cefepime. 5. Admit to [place] [address] room. 6. Code status =Full Code. 7. DVT - continue lovenox 8. S/P transfusion 2 units of packed RBC. 9. ID=Dr Gautam 10. Continue decadron 11. S/P IVC filter placement 04/20/20 12. S/P PEG placement 04/19/20 Tariq Murphy MD Apr 24, 2020 17:54
--- NOTE | 2020-04-24 18:55 | NUR ---
NURSE HAND-OFF REPORT: Important Events on Shift:[resume TF, PRN reglan given, BM,] Patient Status: [FULL CODE] Diet: [TF glucerna 1.2] Pending Orders: [] Pending Results/Labs:[] Pending MD notification:[] Latest Vital Signs: Temperature 98.2 , Pulse 122 , B/P 132 /70 , Respiratory Rate 18 , O2 SAT 100 , Nasal Cannula, O2 Flow Rate 3.0 . Vital Sign Comment: [] EKG Rhythm: Sinus Tachycardia Rhythm change?: N MD Notified?: N - MD Response: Latest Ortega Fall Score: 55 Fall Risk: High Risk Safety Measures: Call light Within Reach, Bed Alarm Zone 1, Side Rails Side Rails x2, Bed position Low and Locked. Fall Precautions: Yellow Socks Yellow Gown Door Sign Patient Fall Education Report given to [Jose BOND].
[2020-04-24 20:00] VITALS: BP 125/61
[2020-04-24] MEDS: Dyna-Hex 2% Top Sol 2oz TOPIC SCH (21:43)
[2020-04-24] MEDS: Miralax 17gm pkt ORAL SCH (21:44)
[2020-04-25] VITALS: BP 107/69
[2020-04-25 04:00] VITALS: BP 113/67
[2020-04-25] MEDS: D5 1/2NS w/KCl 20mEq 1,000 ML IV SCH ×2 (05:14→17:04)
[2020-04-25] MEDS: NovoLOG Insulin Flexpen SUBQ SCH ×4 (06:00→17:06)
--- NOTE | 2020-04-25 06:25 | General Progress Note ---
Subjective ROS Limited/Unobtainable: No Allergies: Coded Allergies: No Known Allergies (Unverified , 03/11/19) Objective Last 24 Hour Vital Signs Date Time Temp Pulse Resp B/P (MAP) Pulse Ox O2 Delivery O2 Flow Rate FiO2 04/25/20 01:15 99.2 04/25/20 00:00 119 04/25/20 00:00 100.0 130 20 107/69 (82) 100 04/24/20 21:00 Nasal Cannula 3.0 04/24/20 20:00 125 04/24/20 20:00 97.7 132 20 125/61 (82) 98 04/24/20 16:00 98.2 130 18 132/70 (90) 100 04/24/20 16:00 122 04/24/20 12:00 97.9 110 20 120/52 (74) 100 04/24/20 12:00 102 04/24/20 08:11 Nasal Cannula 3.0 04/24/20 08:00 100 04/24/20 07:56 98.1 72 18 123/62 (82) 93 Intake and Output 04/24/20 04/25/20 19:00 07:00 Intake Total 950 ml Output Total 900 ml 600 ml Balance 50 ml -600 ml Free Water 60 ml IV Total 675 ml Tube Feeding 215 ml Output Urine Total 900 ml 600 ml # Bowel Movements 1 Laboratory Tests 04/24/20 06:30: POC Whole Blood Glucose 114H 04/24/20 11:24: POC Whole Blood Glucose [Pending] 04/25/20 00:11: POC Whole Blood Glucose [Pending] 04/25/20 05:43: POC Whole Blood Glucose [Pending] Height (Feet): 5 Height (Inches): 5.00 Weight (Pounds): 201 General Appearance: lethargic EENT: normal ENT inspection Neck: supple Cardiovascular: arrhythmia, irregularly irregular Abdomen: normal bowel sounds, non tender, soft Extremities: non-tender Assessment/Plan Status: stable, unchanged Assessment/Plan: 1. History of hypertension. 2. Diabetes. 3. CVA. 4. UTI. 5. Colitis. 6. Endometrial cancer. 7. A.Fib no recurrent gib s/p PEG GTF monitor for residuals>>>> reglan 5 mg Q6 given elevated residuals hematuria care per urology fu cardiology recs Nima Park MD Apr 25, 2020 06:25
--- NOTE | 2020-04-25 06:55 | NUR ---
NURSE NOTES: Patient cleaned and changed dressing.
--- NOTE | 2020-04-25 07:34 | Urology Progress Note ---
Assessment/Plan Status: stable, unchanged Assessment/Plan: 1. Gross hematuria. 2. UTI. 3. Proteinuria. 4. Urinary retention. 5. Probable neurogenic bladder. 6. Probable cystitis. 7. Possible adrenal adenoma. 8. Acute kidney injury history, which is improved. 9. Sepsis history. monitor clinically mcmanus hand irrigated and do PRN will consider larger mcmanus or CBI if needed abx as ordered on ASA and lovenox, hold if hematuria worsens IVC filter placed monitor h/h renal fxn stable cysto at some point electively Subjective Allergies: Coded Allergies: No Known Allergies (Unverified , 03/11/19) Subjective all noted nurses hand irrigated mcmanus Objective Last 24 Hour Vital Signs Date Time Temp Pulse Resp B/P (MAP) Pulse Ox O2 Delivery O2 Flow Rate FiO2 04/25/20 04:00 96 04/25/20 04:00 97.9 114 18 113/67 (82) 100 04/25/20 01:15 99.2 04/25/20 00:00 119 04/25/20 00:00 100.0 130 20 107/69 (82) 100 04/24/20 21:00 Nasal Cannula 3.0 04/24/20 20:00 125 04/24/20 20:00 97.7 132 20 125/61 (82) 98 04/24/20 16:00 98.2 130 18 132/70 (90) 100 04/24/20 16:00 122 04/24/20 12:00 97.9 110 20 120/52 (74) 100 04/24/20 12:00 102 04/24/20 08:11 Nasal Cannula 3.0 04/24/20 08:00 100 04/24/20 07:56 98.1 72 18 123/62 (82) 93 Intake and Output 04/24/20 04/25/20 19:00 07:00 Intake Total 950 ml Output Total 900 ml 600 ml Balance 50 ml -600 ml Free Water 60 ml IV Total 675 ml Tube Feeding 215 ml Output Urine Total 900 ml 600 ml # Bowel Movements 1 Microbiology Date/Time Source Procedure Growth Status 04/20/20 12:50 Nasopharynx SARS-CoV-2 RdRp Gene Assay - Final Complete 04/12/20 19:30 Blood Blood Culture - Final NO GROWTH AFTER 5 DAYS Complete 04/09/20 08:00 Urine,Clean Catch Urine Culture - Final Enterococcus Faecium - Vre Complete 04/08/20 15:55 Rectum VRE Culture - Final Enterococcus Faecium - Vre Complete Current Medications Medications (Trade) Dose Ordered Sig/Jere Route PRN Reason Start Time Stop Time Status Last Admin Dose Admin Acetaminophen (Tylenol) 650 mg Q4H PRN ORAL fever 04/08/20 19:00 05/08/20 18:59 04/25/20 00:45 Ascorbic Acid (Vitamin C) 500 mg TWICE A DAY ORAL 04/14/20 18:00 05/14/20 17:59 04/24/20 17:22 Aspirin (ASA) 81 mg DAILY NG 04/18/20 18:45 06/02/20 18:44 04/24/20 08:57 Chlorhexidine Gluconate (Geno-Hex 2%) 1 applic DAILY@2000 TOPIC 04/08/20 20:00 07/07/20 19:59 04/24/20 21:43 Dextrose (Dextrose 50%) 25 ml Q30M PRN IV Hypoglycemia 04/17/20 12:00 07/16/20 11:59 Dextrose (Dextrose 50%) 50 ml Q30M PRN IV Hypoglycemia 04/17/20 12:00 07/16/20 11:59 Dextrose/ Electrolytes 1,000 ml @ 75 mls/hr [id number] IV 04/08/20 22:30 05/08/20 22:29 04/25/20 05:14 Enoxaparin Sodium (Lovenox) 40 mg DAILY SUBQ 04/14/20 20:00 07/13/20 19:59 04/24/20 09:16 Insulin Aspart (NovoLOG) Q6H SUBQ 04/17/20 12:00 07/16/20 11:59 Linezolid (Zyvox) 600 mg EVERY 12 HOURS ORAL 04/20/20 21:00 04/25/20 20:59 04/24/20 21:44 Metoclopramide HCl (Reglan) 5 mg Q6H PRN IVP Nausea & Vomiting 04/24/20 08:30 05/24/20 08:29 04/24/20 08:57 Metoprolol Tartrate (Lopressor) 5 mg Q1H PRN IVP spb more than 120 04/08/20 19:00 07/07/20 18:59 Multivitamins (Multivitamins) 1 tab DAILY ORAL 04/15/20 09:00 05/15/20 08:59 04/24/20 08:57 Ondansetron HCl (Zofran) 4 mg Q6H PRN IVP Nausea & Vomiting 04/08/20 19:00 05/08/20 18:59 Pantoprazole (Protonix) 40 mg DAILY IVP 04/24/20 09:00 05/24/20 08:59 04/24/20 08:57 Polyethylene Glycol (Miralax) 17 gm BEDTIME ORAL 04/09/20 21:00 05/09/20 20:59 04/24/20 21:44 Polyethylene Glycol (Miralax) 17 gm DAILYPRN PRN ORAL Constipation 04/08/20 19:00 05/08/20 18:59 Zinc Sulfate (Zinc Sulfate) 220 mg DAILY ORAL 04/15/20 09:00 04/25/20 08:59 04/24/20 09:17 Laboratory Tests 04/24/20 11:24: POC Whole Blood Glucose [Pending] 04/25/20 00:11: POC Whole Blood Glucose [Pending] 04/25/20 05:43: POC Whole Blood Glucose [Pending] Height (Feet): 5 Height (Inches): 5.00 Weight (Pounds): 201 Objective exam stable mcmanus indwelling urine blood-tinged/payam, clearer LE duplex (04/19) (+) DVT Bong Valerio MD Apr 25, 2020 07:34
--- NOTE | 2020-04-25 07:45 | NUR ---
NURSE HAND-OFF REPORT: Important Events on Shift:[NA] Patient Status: [Full code] Diet: [Glucerna 1.2@ 25 cc. Goal is 55cc/hr] Pending Orders: []NA Pending Results/Labs:[NA] Pending MD notification:[NA] Latest Vital Signs: Temperature 97.9 , Pulse 96 , B/P 113 /67 , Respiratory Rate 18 , O2 SAT 100 , Nasal Cannula, O2 Flow Rate 3.0 . Vital Sign Comment: [NA] EKG Rhythm: Sinus Rhythm Rhythm change?: N MD Notified?: N - MD Response: Latest Ortega Fall Score: 55 Fall Risk: High Risk Safety Measures: Call light Within Reach, Bed Alarm Zone 1, Side Rails Side Rails x2, Bed position Low and Locked. Fall Precautions: Yellow Socks Yellow Gown Door Sign Patient Fall Education Report given to [RUTHIE Sinclair].
[2020-04-25 08:00] VITALS: BP 106/73
--- NOTE | 2020-04-25 08:25 | NUR ---
NURSE NOTES: RECEIVED PATIENT A/A/OX1, NONVERBAL THOUGH ABLE TO FOLLOW COMMANDS. PATIENT WAS GRIMACING UPON ROUNDING DUE TO IV INFILTRATION ON THE RIGHT AC. DISCONNECTED AND REMOVED IV HEPLOCK. ELEVATED ARM WITH A PILLOW. HOB ELEVATED FOR ASPIRATION PRECAUTION. ON GTUBE FEEDING. TOLERATING AND NO GASTRIC RESIDUAL NOTED. INCREASED TO 30CC TO A GOAL OF 55CC/HR. CHANGED GTUBE DRSG. ASSESSED RIGHT JUGULAR S/P IVC FILTER. NO BLEEDING NOTED. SESAY CATH INPLACED DRAINING WELL WITH GRAVITY. MILD TINGED BLOOD PRESENT. FLUSHED 50CC NS PRN PER MD ORDER. NO ACUTE RESP DISTRESS NOTED. ON SERG SOFT WRIST RESTRAINTS FOR POTENTIALLY REMOVING DEVICES. KEPT BED IN THE LOWEST POSITION. SIDERAILS ARE UPX3. BED BRAKES ARE LOCK AND CALL LIGHT IS WITHIN REACH. WILL CONT TO MONITOR.
--- NOTE | 2020-04-25 08:30 | NUR ---
NURSE NOTES: ATTEMPTED TO REINSERT IV X3 AND UNSUCCESSFUL. WILL RETRY AGAIN LATER TODAY. WILL CONT TO MONITOR.
[2020-04-25] MEDS: Ascorbic Acid 500mg tab ORAL SCH ×2 (09:03→17:03)
[2020-04-25] MEDS: Aspirin Baby 81mg NG SCH (09:03)
[2020-04-25] MEDS: Enoxaparin 40mg Inj SUBQ SCH (09:04)
[2020-04-25] MEDS: Pantoprazole Inj IVP SCH (09:07)
--- NOTE | 2020-04-25 09:51 | NUR ---
RADIOLOGY DEPT., CHEST X-RAY DONE.-P.DYE
[2020-04-25 09:54] LABS: HEMOGLOBIN 7.6 G/DL (12.0-16.0); MEAN CORPUSCULAR VOLUME 87 FL (80-99); PLATELET COUNT 216 K/UL (150-450); RED BLOOD COUNT 2.65 M/UL (4.20-5.40); RED CELL DISTRIBUTION WIDTH 13.9 % (11.6-14.8); WHITE BLOOD COUNT 9.4 K/UL (4.8-10.8)
--- NOTE | 2020-04-25 10:11 | Nephrology Progress Note ---
Assessment/Plan Problem List: (1) COVID-19 (2) Atrial fibrillation with RVR (3) Septic shock (4) Hemorrhagic shock (5) History of CVA (cerebrovascular accident) (6) Anemia Assessment Electrolyte abnormalities, normal BUN and creatinine(low phosphorus, low magnesium, low potassium,) Atrial fibrillation with fast ventricular rate Sepsis, COVID-19 Low BP upon admission with sepsis and vaginal /rectal hemorrhage Anemia, secondary to acute blood loss Toxic metabolic encephalopathy Hematuria History of CVA, lacunar infarct History of diabetes type 2 In operable endometrial adenocarcinoma status post brachytherapy History of hypertension Plan April 25: Today's labs pending. Renal parameters stable. Continue per consultants. April 24: Labs reviewed. Renal parameters stable. Patient full code. Continue per consultants. April 23: Labs reviewed. Renal parameters stable. Continue per consultants. April 22: Status quo. Labs reviewed. Renal parameters stable. Continue per consultants. April 21: Status quo. Renal parameters stable. Continue per consultants. April 20: Lab reviewed. Renal parameters stable. April 19: Labs reviewed. Electrolytes and renal parameters stable. April 18: Labs reviewed. Electrolytes and renal parameters stable. April 17: Lab reviewed. Stable from renal standpoint of view April 16: Labs reviewed. Remains stable from renal standpoint of view. Continue per consultants. April 15: Labs reviewed. Electrolyte abnormalities addressed. Continue as is. April 14: Labs reviewed. Low phosphorus and low magnesium corrected. Continue per consultants. Blood pressure remains stable. April 13: Electrolytes within normal limit. Renal parameters within normal limit. Continue per consultants. April 12: Electrolyte abnormalities noted and addressed. Continue per consultants Magnesium IV supplement as needed Potassium IV supplement as needed Phosphorus IV supplement as needed Monitor electrolytes Monitor hemoglobin hematocrit IV Protonix Adjust IV fluid Antibiotics per consultants Subjective ROS Limited/Unobtainable: No Constitutional: Reports: malaise Objective Objective Last 24 Hour Vital Signs Date Time Temp Pulse Resp B/P (MAP) Pulse Ox O2 Delivery O2 Flow Rate FiO2 04/25/20 09:00 Nasal Cannula 3.0 04/25/20 08:00 96.0 105 21 106/73 (84) 100 04/25/20 04:00 96 04/25/20 04:00 97.9 114 18 113/67 (82) 100 04/25/20 01:15 99.2 10/5/20 00:00 119 04/25/20 00:00 100.0 130 20 107/69 (82) 100 04/24/20 21:00 Nasal Cannula 3.0 04/24/20 20:00 125 04/24/20 20:00 97.7 132 20 125/61 (82) 98 04/24/20 16:00 98.2 130 18 132/70 (90) 100 04/24/20 16:00 122 04/24/20 12:00 97.9 110 20 120/52 (74) 100 04/24/20 12:00 102 Intake and Output 04/24/20 04/25/20 18:59 06:59 Intake Total 1025 ml Output Total 900 ml 600 ml Balance 125 ml -600 ml Free Water 60 ml IV Total 750 ml Tube Feeding 215 ml Output Urine Total 900 ml 600 ml # Bowel Movements 1 Laboratory Tests 04/24/20 11:24: POC Whole Blood Glucose [Pending] 04/25/20 00:11: POC Whole Blood Glucose [Pending] 04/25/20 05:43: POC Whole Blood Glucose [Pending] 04/25/20 09:35: White Blood Count 9.4, Red Blood Count 2.65L, Hemoglobin 7.6L, Hematocrit 23.0L, Mean Corpuscular Volume 87, Mean Corpuscular Hemoglobin 28.7, Mean Corpuscular Hemoglobin Concent 33.0, Red Cell Distribution Width 13.9, Platelet Count 216, Mean Platelet Volume 5.2L, Neutrophils (%) (Auto) , Lymphocytes (%) (Auto) , Monocytes (%) (Auto) , Eosinophils (%) (Auto) , Basophils (%) (Auto) , Neutrophils % (Manual) [Pending], Lymphocytes % (Manual) [Pending], Platelet Estimate [Pending], Platelet Morphology [Pending], Erythrocyte Sedimentation Rate [Pending], Sodium Level [Pending], Potassium Level [Pending], Chloride Level [Pending], Carbon Dioxide Level [Pending], Blood Urea Nitrogen [Pending], Creatinine [Pending], Estimat Glomerular Filtration Rate [Pending], Glucose Level [Pending], Calcium Level [Pending], Phosphorus Level [Pending], Magnesium Level [Pending], Total Bilirubin [Pending], Aspartate Amino Transf (AST/SGOT) [Pending], Alanine Aminotransferase (ALT/SGPT) [Pending], Alkaline Phosphatase [Pending], C-Reactive Protein, Quantitative [Pending], Total Protein [Pending], Albumin [Pending], Globulin [Pending] Height (Feet): 5 Height (Inches): 5.00 Weight (Pounds): 201 General Appearance: no apparent distress, other - Periodically febrile EENT: other - On nasal cannula Cardiovascular: tachycardia Respiratory/Chest: decreased breath sounds Abdomen: distended Objective No change Steven Edwards MD Apr 25, 2020 10:11
[2020-04-25 10:16] LABS: ALANINE AMINOTRANSFERASE 23 U/L (12-78); ALBUMIN 2.1 G/DL (3.4-5.0); ALBUMIN/GLOBULIN RATIO 0.6 (1.0-2.7); ALKALINE PHOSPHATASE 74 U/L (46-116); ANION GAP 2 mmol/L (5-15); ASPARTATE AMINO TRANSFERASE 19 U/L (15-37); BILIRUBIN,TOTAL 0.6 MG/DL (0.2-1.0); BLOOD UREA NITROGEN 6 mg/dL (7-18); CALCIUM 8.5 MG/DL (8.5-10.1); CARBON DIOXIDE 29 MMOL/L (21-32); CHLORIDE 105 MMOL/L (98-107); CREATININE 0.4 MG/DL (0.55-1.30); PHOSPHORUS 2.8 MG/DL (2.5-4.9); POTASSIUM 4.1 MMOL/L (3.5-5.1); SODIUM 136 MMOL/L (136-145)
--- NOTE | 2020-04-25 10:45 | Pulmonology Progress Note ---
Subjective ROS Limited/Unobtainable: No Constitutional: Reports: no symptoms, fatigue HEENT: Repors: no symptoms Allergies: Coded Allergies: No Known Allergies (Unverified , 03/11/19) Objective Last 24 Hour Vital Signs Date Time Temp Pulse Resp B/P (MAP) Pulse Ox O2 Delivery O2 Flow Rate FiO2 04/25/20 09:00 Nasal Cannula 3.0 04/25/20 08:00 90 04/25/20 08:00 96.0 105 21 106/73 (84) 100 04/25/20 04:00 96 04/25/20 04:00 97.9 114 18 113/67 (82) 100 04/25/20 01:15 99.2 04/25/20 00:00 119 04/25/20 00:00 100.0 130 20 107/69 (82) 100 04/24/20 21:00 Nasal Cannula 3.0 04/24/20 20:00 125 04/24/20 20:00 97.7 132 20 125/61 (82) 98 04/24/20 16:00 98.2 130 18 132/70 (90) 100 04/24/20 16:00 122 04/24/20 12:00 97.9 110 20 120/52 (74) 100 04/24/20 12:00 102 Intake and Output 04/24/20 04/25/20 19:00 07:00 Intake Total 950 ml Output Total 900 ml 600 ml Balance 50 ml -600 ml Free Water 60 ml IV Total 675 ml Tube Feeding 215 ml Output Urine Total 900 ml 600 ml # Bowel Movements 1 General Appearance: WD/WN HEENT: normocephalic, atraumatic Respiratory: chest wall non-tender, lungs clear Breasts: no masses Cardiovascular: normal peripheral pulses Abdomen: normal bowel sounds, soft, non tender Extremities: no cyanosis 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, alert Lymphatic: no neck adenopathy Laboratory Tests 04/24/20 11:24: POC Whole Blood Glucose [Pending] 04/25/20 00:11: POC Whole Blood Glucose [Pending] 04/25/20 05:43: POC Whole Blood Glucose [Pending] 04/25/20 09:35: White Blood Count 9.4, Red Blood Count 2.65L, Hemoglobin 7.6L, Hematocrit 23.0L, Mean Corpuscular Volume 87, Mean Corpuscular Hemoglobin 28.7, Mean Corpuscular Hemoglobin Concent 33.0, Red Cell Distribution Width 13.9, Platelet Count 216, Mean Platelet Volume 5.2L, Neutrophils (%) (Auto) , Lymphocytes (%) (Auto) , Monocytes (%) (Auto) , Eosinophils (%) (Auto) , Basophils (%) (Auto) , Ketty trophils % (Manual) [Pending], Lymphocytes % (Manual) [Pending], Platelet Estimate [Pending], Platelet Morphology [Pending], Erythrocyte Sedimentation Rate [Pending], Sodium Level 136, Potassium Level 4.1, Chloride Level 105, Carbon Dioxide Level 29, Anion Gap 2L, Blood Urea Nitrogen 6L, Creatinine 0.4L, Estimat Glomerular Filtration Rate > 60, Glucose Level 96, Calcium Level 8.5, Phosphorus Level 2.8, Magnesium Level 1.8, Total Bilirubin 0.6, Aspartate Amino Transf (AST/SGOT) 19, Alanine Aminotransferase (ALT/SGPT) 23, Alkaline Phosphatase 74, C-Reactive Protein, Quantitative 6.3H, Total Protein 5.4L, Albumin 2.1L, Globulin 3.3, Albumin/Globulin Ratio 0.6L Current Medications Medications (Trade) Dose Ordered Sig/Jere Route PRN Reason Start Time Stop Time Status Last Admin Dose Admin Acetaminophen (Tylenol) 650 mg Q4H PRN ORAL fever 04/08/20 19:00 05/08/20 18:59 04/25/20 00:45 Ascorbic Acid (Vitamin C) 500 mg TWICE A DAY ORAL 04/14/20 18:00 05/14/20 17:59 04/25/20 09:03 Aspirin (ASA) 81 mg DAILY NG 04/18/20 18:45 06/02/20 18:44 04/25/20 09:03 Chlorhexidine Gluconate (Geno-Hex 2%) 1 applic DAILY@1999 TOPIC 04/08/20 20:00 07/07/20 19:59 04/24/20 21:43 Dextrose (Dextrose 50%) 25 ml Q30M PRN IV Hypoglycemia 04/17/20 12:00 07/16/20 11:59 Dextrose (Dextrose 50%) 50 ml Q30M PRN IV Hypoglycemia 04/17/20 12:00 07/16/20 11:59 Dextrose/ Electrolytes 1,000 ml @ 75 mls/hr [id number] IV 04/08/20 22:30 05/08/20 22:29 04/25/20 05:14 Enoxaparin Sodium (Lovenox) 40 mg DAILY SUBQ 04/14/20 20:00 07/13/20 19:59 04/25/20 09:04 Insulin Aspart (NovoLOG) Q6H SUBQ 04/17/20 12:00 07/16/20 11:59 Linezolid (Zyvox) 600 mg EVERY 12 HOURS ORAL 04/20/20 21:00 04/25/20 20:59 04/25/20 09:04 Metoclopramide HCl (Reglan) 5 mg Q6H PRN IVP Nausea & Vomiting 04/24/20 08:30 05/24/20 08:29 04/24/20 08:57 Metoprolol Tartrate (Lopressor) 5 mg Q1H PRN IVP spb more than 120 04/08/20 19:00 07/07/20 18:59 Multivitamins (Multivitamins) 1 tab DAILY ORAL 04/15/20 09:00 05/15/20 08:59 04/25/20 09:03 Ondansetron HCl (Zofran) 4 mg Q6H PRN IVP Nausea & Vomiting 04/08/20 19:00 05/08/20 18:59 Pantoprazole (Protonix) 40 mg DAILY IVP 04/24/20 09:00 05/24/20 08:59 04/25/20 09:07 Polyethylene Glycol (Miralax) 17 gm BEDTIME ORAL 04/09/20 21:00 05/09/20 20:59 04/24/20 21:44 Polyethylene Glycol (Miralax) 17 gm DAILYPRN PRN ORAL Constipation 04/08/20 19:00 05/08/20 18:59 Assessment/Plan Problems: (1) Hemorrhagic shock (2) Sepsis (3) Bacteremia (4) History of CVA (cerebrovascular accident) (5) Rectal bleeding (6) Hematuria Assessment/Plan repeat cxr 04/25 negative prbc times one looks comfortable somnolent ivc filter in place f/u ID recommendations check electrolytes GI note appreciated continue Decadron dvt prophylaxis. Marina Buitrago MD Apr 25, 2020 10:45
[2020-04-25 12:00] VITALS: BP 113/71
--- NOTE | 2020-04-25 12:19 | NUR ---
CASE MANAGEMENT: REVIEW SI: COVID-19 . PNA . T 100.0 HR 130 RR 20 BP 107/69 SAT 95% NC/3L H/H 7.6/23.0 BUN 6 CR 0.4 CXR IS: ZYVOX PO Q12HR DECADRON PO QD PROTONIX IV Q12HR D5 1/2 NS w/KCl 20MEQ @ 75ML/HR TRANSFUSE PRBC 1 UNIT TELEMETRY UNIT STATUS DCP: PATIENT IS FROM [facility]
--- NOTE | 2020-04-25 13:14 | Infectious Diseases Prog Note ---
Assessment/Plan Assessment: Right Fem DVT US 04/19/20 - Com. Fem. DVT Septic Shock- SP COVID19 pneumonia- on 2l NC> hypoxic on ABG, now at 4L NC> 3l N C -04/20 rapid COVID + -04/12 CXR: Bilateral infiltrates, developing since 04/08/2020, likely on the basis of pneumonia. -04/08 CXR: Mild diffuse peribronchial thickening in the absence of airspace consolidation, which is nonspecific but can be seen with infectious/inflammatory airways disease in the appropriate clinical context. rapid covid pcr + UTI -04/09 ucx >100k VRE (E. faecium); S linezolid -04/08 u/a wbc tnct, nit neg, leuk +3; ucx <10k P, mirabilis (S Ceftriaxone, Zosyn), >100k gamma hemolytic strep Gram positive bacteremia- likely contaminant -04/08 Bcx 1/4 S. hominis, 2/4 S. auricularis ; 04/12 Bcx Neg Low grade fever, SP No leukocytosis Vaginal bleeding -CT abd/p wo: Study limited due to lack of IV contrast. Pulmonary findings could represent multifocal pneumonia or aspiration.These findings could also rep resent viral pneumonia, although this is not highly specific pattern. Prominent rectal stool burden with mild wall thickening could represent stercoral colitis in the proper context. Otherwise, diffuse large colonic stool burden could be a cause for pain. Left superior renal pole ill-defined mild hyperdensity could be a manifestation of chronic medical renal disease in the proper context. Consider outpatient CT adrenal glands to further evaluate indeterminate left adrenal 1.2 cm nodularity. Calcified fibroid uterus. Appendectomy. 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) Plan: -Cont PO Zyvox #14/14 for both GPC bacteremia and VRE UTI -Cont dex 6mg daily - 04/17/20 SP remdesivir #5/5 -04/14 SP Cefepime #7/7 for Proteus UTI -04/12 SP IV Vancomycin #5 -f/u cx -Monitor CBC/CMP, temperatures -COVID19 isolation Thank you for this consultation. Will continue to follow along with you. Subjective Allergies: Coded Allergies: No Known Allergies (Unverified , 03/11/19) Tm 100 at 3l NC no leukocytosis Objective Last 24 Hour Vital Signs Date Time Temp Pulse Resp B/P (MAP) Pulse Ox O2 Delivery O2 Flow Rate FiO2 04/25/20 12:00 97.9 105 20 113/71 (85) 95 04/25/20 09:00 Nasal Cannula 3.0 04/25/20 08:00 90 04/25/20 08:00 96.0 105 21 106/73 (84) 100 04/25/20 04:00 96 04/25/20 04:00 97.9 114 18 113/67 (82) 100 04/25/20 01:15 99.2 04/25/20 00:00 119 04/25/20 00:00 100.0 130 20 107/69 (82) 100 04/24/20 21:00 Nasal Cannula 3.0 04/24/20 20:00 125 04/24/20 20:00 97.7 132 20 125/61 (82) 98 04/24/20 16:00 98.2 130 18 132/70 (90) 100 04/24/20 16:00 122 Height (Feet): 5 Height (Inches): 5.00 Weight (Pounds): 201 GENERAL: The patient awake, responsive, however altered and confused. The patient appears to be paler and chronically-ill appearing. HEAD AND NECK: Pupils are equal and reactive to light. Extraocular movements are intact. Neck was supple. No JVD. LUNGS: Bilateral air entry. Decreased air in the bases. HEART: S1, S2. Tachycardic, irregular. No murmur or gallop was appreciated. ABDOMEN: Soft, nondistended. Tenderness on the lower abdominal area. Mildly obese. EXTREMITIES: No cyanosis, clubbing, or edema. GENITOURINARY: The patient noted to have Lowe catheter with dark red urine collection in a Lowe catheter. Laboratory Tests Test 04/25/20 00:11 04/25/20 05:43 04/25/20 09:35 04/25/20 11:55 POC Whole Blood Glucose Pending Pending Pending White Blood Count 9.4 K/UL (4.8-10.8) Red Blood Count 2.65 M/UL (4.20-5.40) L Hemoglobin 7.6 G/DL (12.0-16.0) L Hematocrit 23.0 % (37.0-47.0) L Mean Corpuscular Volume 87 FL (80-99) Mean Corpuscular Hemoglobin 28.7 PG (27.0-31.0) Mean Corpuscular Hemoglobin Concent 33.0 G/DL (32.0-36.0) Red Cell Distribution Width 13.9 % (11.6-14.8) Platelet Count 216 K/UL (150-450) Mean Platelet Volume 5.2 FL (6.5-10.1) L Neutrophils (%) (Auto) % (45.0-75.0) Lymphocytes (%) (Auto) % (20.0-45.0) Monocytes (%) (Auto) % (1.0-10.0) Eosinophils (%) (Auto) % (0.0-3.0) Basophils (%) (Auto) % (0.0-2.0) Differential Total Cells Counted 100 Neutrophils % (Manual) 82 % (45-75) H Lymphocytes % (Manual) 10 % (20-45) L Monocytes % (Manual) 6 % (1-10) Eosinophils % (Manual) 2 % (0-3) Basophils % (Manual) 0 % (0-2) Band Neutrophils 0 % (0-8) Platelet Estimate Adequate Platelet Morphology Normal Hypochromasia 3+ Spherocytes 1+ Erythrocyte Sedimentation Rate 87 MM/HR (0-30) H Sodium Level 136 MMOL/L (136-145) Potassium Level 4.1 MMOL/L (3.5-5.1) Chloride Level 105 MMOL/L (98-107) Carbon Dioxide Level 29 MMOL/L (21-32) Anion Gap 2 mmol/L (5-15) L Blood Urea Nitrogen 6 mg/dL (7-18) L Creatinine 0.4 MG/DL (0.55-1.30) L Estimat Glomerular Filtration Rate > 60 mL/min (>60) Glucose Level 96 MG/DL (74-106) Calcium Level 8.5 MG/DL (8.5-10.1) Phosphorus Level 2.8 MG/DL (2.5-4.9) Magnesium Level 1.8 MG/DL (1.8-2.4) Total Bilirubin 0.6 MG/DL (0.2-1.0) Aspartate Amino Transf (AST/SGOT) 19 U/L (15-37) Alanine Aminotransferase (ALT/SGPT) 23 U/L (12-78) Alkaline Phosphatase 74 U/L (46-116) C-Reactive Protein, Quantitative 6.3 mg/dL (0.00-0.90) H Total Protein 5.4 G/DL (6.4-8.2) L Albumin 2.1 G/DL (3.4-5.0) L Globulin 3.3 g/dL Albumin/Globulin Ratio 0.6 (1.0-2.7) L Current Medications Medications (Trade) Dose Ordered Sig/Jere Route PRN Reason Start Time Stop Time Status Last Admin Dose Admin Acetaminophen (Tylenol) 650 mg Q4H PRN ORAL fever 04/08/20 19:00 05/08/20 18:59 04/25/20 00:45 Ascorbic Acid (Vitamin C) 500 mg TWICE A DAY ORAL 04/14/20 18:00 05/14/20 17:59 04/25/20 09:03 Aspirin (ASA) 81 mg DAILY NG 04/18/20 18:45 06/02/20 18:44 04/25/20 09:03 Chlorhexidine Gluconate (Geno-Hex 2%) 1 applic DAILY@2000 TOPIC 04/08/20 20:00 07/07/20 19:59 04/24/20 21:43 Dextrose (Dextrose 50%) 25 ml Q30M PRN IV Hypoglycemia 04/17/20 12:00 07/16/20 11:59 Dextrose (Dextrose 50%) 50 ml Q30M PRN IV Hypoglycemia 04/17/20 12:00 07/16/20 11:59 Dextrose/ Electrolytes 1,000 ml @ 75 mls/hr [id number] IV 04/08/20 22:30 05/08/20 22:29 04/25/20 05:14 Enoxaparin Sodium (Lovenox) 40 mg DAILY SUBQ 04/14/20 20:00 07/13/20 19:59 04/25/20 09:04 Insulin Aspart (NovoLOG) Q6H SUBQ 04/17/20 12:00 07/16/20 11:59 Linezolid (Zyvox) 600 mg EVERY 12 HOURS ORAL 04/20/20 21:00 04/25/20 20:59 04/25/20 09:04 Metoclopramide HCl (Reglan) 5 mg Q6H PRN IVP Nausea & Vomiting 04/24/20 08:30 05/24/20 08:29 04/24/20 08:57 Metoprolol Tartrate (Lopressor) 5 mg Q1H PRN IVP spb more than 120 04/08/20 19:00 07/07/20 18:59 Multivitamins (Multivitamins) 1 tab DAILY ORAL 04/15/20 09:00 05/15/20 08:59 04/25/20 09:03 Ondansetron HCl (Zofran) 4 mg Q6H PRN IVP Nausea & Vomiting 04/08/20 19:00 05/08/20 18:59 Pantoprazole (Protonix) 40 mg DAILY IVP 04/24/20 09:00 05/24/20 08:59 04/25/20 09:07 Polyethylene Glycol (Miralax) 17 gm BEDTIME ORAL 04/09/20 21:00 05/09/20 20:59 04/24/20 21:44 Polyethylene Glycol (Miralax) 17 gm DAILYPRN PRN ORAL Constipation 04/08/20 19:00 05/08/20 18:59 Laurie Gautam M.D. Apr 25, 2020 13:14
--- NOTE | 2020-04-25 14:07 | Surgery Progress Note ---
Surgery Progress Note Subjective Additional Comments labs improved dressings changed comfortable no n/v Objective Last 24 Hour Vital Signs Date Time Temp Pulse Resp B/P (MAP) Pulse Ox O2 Delivery O2 Flow Rate FiO2 04/25/20 12:00 97.9 105 20 113/71 (85) 95 04/25/20 12:00 99 04/25/20 09:00 Nasal Cannula 3.0 04/25/20 08:00 90 04/25/20 08:00 96.0 105 21 106/73 (84) 100 04/25/20 04:00 96 04/25/20 04:00 97.9 114 18 113/67 (82) 100 04/25/20 01:15 99.2 04/25/20 00:00 119 04/25/20 00:00 100.0 130 20 107/69 (82) 100 04/24/20 21:00 Nasal Cannula 3.0 04/24/20 20:00 125 04/24/20 20:00 97.7 132 20 125/61 (82) 98 04/24/20 16:00 98.2 130 18 132/70 (90) 100 04/24/20 16:00 122 I&O Intake and Output 04/24/20 04/25/20 19:00 07:00 Intake Total 950 ml Output Total 900 ml 600 ml Balance 50 ml -600 ml Free Water 60 ml IV Total 675 ml Tube Feeding 215 ml Output Urine Total 900 ml 600 ml # Bowel Movements 1 Dressing: saturated Cardiovascular: RSR Respiratory: decreased breath sounds Abdomen: soft, non-tender, present bowel sounds Extremities: no edema, no tenderness, no cyanosis Laboratory Tests Test 04/25/20 00:11 04/25/20 05:43 04/25/20 09:35 04/25/20 11:55 POC Whole Blood Glucose Pending Pending Pending White Blood Count 9.4 K/UL (4.8-10.8) Red Blood Count 2.65 M/UL (4.20-5.40) L Hemoglobin 7.6 G/DL (12.0-16.0) L Hematocrit 23.0 % (37.0-47.0) L Mean Corpuscular Volume 87 FL (80-99) Mean Corpuscular Hemoglobin 28.7 PG (27.0-31.0) Mean Corpuscular Hemoglobin Concent 33.0 G/DL (32.0-36.0) Red Cell Distribution Width 13.9 % (11.6-14.8) Platelet Count 216 K/UL (150-450) Mean Platelet Volume 5.2 FL (6.5-10.1) L Neutrophils (%) (Auto) % (45.0-75.0) Lymphocytes (%) (Auto) % (20.0-45.0) Monocytes (%) (Auto) % (1.0-10.0) Eosinophils (%) (Auto) % (0.0-3.0) Basophils (%) (Auto) % (0.0-2.0) Differential Total Cells Counted 100 Neutrophils % (Manual) 82 % (45-75) H Lymphocytes % (Manual) 10 % (20-45) L Monocytes % (Manual) 6 % (1-10) Eosinophils % (Manual) 2 % (0-3) Basophils % (Manual) 0 % (0-2) Band Neutrophils 0 % (0-8) Platelet Estimate Adequate Platelet Morphology Normal Hypochromasia 3+ Spherocytes 1+ Erythrocyte Sedimentation Rate 87 MM/HR (0-30) H Sodium Level 136 MMOL/L (136-145) Potassium Level 4.1 MMOL/L (3.5-5.1) Chloride Level 105 MMOL/L (98-107) Carbon Dioxide Level 29 MMOL/L (21-32) Anion Gap 2 mmol/L (5-15) L Blood Urea Nitrogen 6 mg/dL (7-18) L Creatinine 0.4 MG/DL (0.55-1.30) L Estimat Glomerular Filtration Rate > 60 mL/min (>60) Glucose Level 96 MG/DL (74-106) Calcium Level 8.5 MG/DL (8.5-10.1) Phosphorus Level 2.8 MG/DL (2.5-4.9) Magnesium Level 1.8 MG/DL (1.8-2.4) Total Bilirubin 0.6 MG/DL (0.2-1.0) Aspartate Amino Transf (AST/SGOT) 19 U/L (15-37) Alanine Aminotransferase (ALT/SGPT) 23 U/L (12-78) Alkaline Phosphatase 74 U/L (46-116) C-Reactive Protein, Quantitative 6.3 mg/dL (0.00-0.90) H Total Protein 5.4 G/DL (6.4-8.2) L Albumin 2.1 G/DL (3.4-5.0) L Globulin 3.3 g/dL Albumin/Globulin Ratio 0.6 (1.0-2.7) L Plan Problems: (1) Hematuria (2) Rectal bleeding Assessment & Plan: 64-year-old female identified to have rectal bleeding on admission. GI aware surgery aware no active bleeding at this time hemoglobin noted. Transfuse PRBC as needed. Pending scope consideration. passed swallow no bleeding on diet may need peg as per GI cont diet urology input appreciated mcmanus being irrigated supplements added for wound care DAILY ESTIMATED NEEDS: Needs based on Obesity, cardiac/ 67.6kg abw 22-27 kcals/kg 3522-7611 total kcals 1-1.5 g protein/kg 68-101 g total protein 25-30 mL/kg 4027-5814 total fluid mLs NUTRITION DIAGNOSIS: * Swallowing difficulty R/T dysphagia, h/o CVA, clinical condition as evidenced by seen by HEAD GOLF COACH w/ rec for pureed moist texture w/ thin liquids. 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 CURRENT DIET:[facility] MED, pureed moist w/ thin liquids PO DIET RECOMMENDATIONS: Liberalized REGULAR w/ poor PO ([facility] MED+LOW NA w/ PO intake >50%) ADDITIONAL RECOMMENDATIONS: * Per SNF: HT=64" ME=755edd (04/05/20) -> rec daily calibrated bedscale wt, monitor trend Possible wt loss of 68 lbs/29% in 13 months * W/ poor PO intake, add Glucerna TID w/ meals * Wound healing: Add MVI x 1, Vit C 500mg BID, ZnSO4 220mg QD x 10 days Woody (QD for now- increase to BID w/ good acceptance) added to tray * Monitor lytes, replete as needed (low k and mag) (3) Hemorrhagic shock (4) Acute CVA (cerebrovascular accident) (5) Septic shock (6) Anemia (7) Sepsis (8) Altered mental status (9) Atrial fibrillation with RVR (10) COVID-19 Assessment & Plan: ++ as per ID and pulm cxr noted (11) History of CVA (cerebrovascular accident) (12) Decubitus skin ulcer Assessment & Plan: Patient identified on admission to have a 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 apply therahoney to areas of slough. apply mositure barrier paste on the periwound. cover with optifoam dressing. change Q3D and PRN. Apply cavilon on both heels& malleoli. Cover each site with optifoam dressing. Change Q7D and PRN. DAILY ESTIMATED NEEDS: Needs based on Obesity, cardiac/ 67.6kg abw 22-27 kcals/kg 4944-3459 total kcals 1.25-1.5 g protein/kg 85-101 g total protein 25-30 mL/kg 5028-4356 total fluid mLs NUTRITION DIAGNOSIS: * Swallowing difficulty R/T dysphagia, h/o CVA, now s/p PEG placement. 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 CURRENT TF:Glucerna 1.2 @55 ENTERAL NUTRITION RECOMMENDATIONS: Glucerna 1.2 goal of 60ml/hr x24 hrs to provide 1440ml, 1728 kcal, 86g pro, 1159 ml free H2O Rec to Increase current TF to goal of 60ml/hr to meet 100% est needs Flush per MD/ HOB over 30 degrees ADDITIONAL RECOMMENDATIONS: * Per SNF: HT=64" JG=234qza (04/05/20) -> rec daily calibrated bedscale wt, monitor trend Possible wt loss of 68 lbs/29% in 13 months * W/ poor PO intake, add Glucerna TID-now s/p PEG * Wound healing: Add MVI x 1, Vit C 500mg BID, ZnSO4 220mg QD x 10 days Woody BID * Monitor lytes, replete as needed Elian Ren Apr 25, 2020 14:07
--- NOTE | 2020-04-25 14:13 | Diagnostic Imaging Report ---
Indication: Dyspnea Technique: One view of the chest Comparison: 04/18/2020 Findings: Interim removal of previously demonstrated nasogastric tube. There is some atelectasis at the left lung base. Lungs and pleural spaces are otherwise clear. Heart size is normal Impression: No acute process
--- NOTE | 2020-04-25 14:30 | NUR ---
NURSE NOTES: INITIATE BLOOD TRANSFUSION 1 UPRBC. [id number]. COUNTERSIGNED WITH RYAN. V/S TAKEN AND RECORDED. AFEBRILE. 97.5, 111, 115/75 BEFORE TRANSFUSION. 15 MIN AFTER TRANSFUSION V/S 97.7, 113, 116/74. PATIENT IS ABLE TO VERBALIZE NEEDS. EXPLAINED THE S/SX TO THE PATIENT AND INSTRUCTED TO PUSH THE CALL LIGHT. KEPT HOB ELEVATED AND NO ACUTE DISTRESS @ THIS TIME. WILL CONT TO MONITOR.
--- NOTE | 2020-04-25 14:53 | NUR ---
NURSE NOTES: RECHECKED GASTRIC RESIDUAL AND NOTED TO BE @ 45CC. REDUCED RATE TO 30CC @ THIS TIME. KEPT HOB ELEVATED. WILL CONT TO MONITOR.
[2020-04-25 16:00] VITALS: BP 124/60
--- NOTE | 2020-04-25 16:18 | NUR ---
NURSE NOTES: PATIENT COMMUNICATES WITH HER SISTER ON THE PHONE @ THIS TIME AND SHE APPEARS TO BE MORE ALERT AND COMMUNICATIVE. BLOOD TRANSFUSION IS STILL ONGOING AND NO S/SX OF FEVER, URTICARIA AND SOB. WILL CONT TO MONITOR.
--- NOTE | 2020-04-25 17:46 | NUR ---
NURSE NOTES: 1 u of prb completed. v/s 99.7, 103, 140/68. no c/o pain/discomfort noted. rechecked gastric residual 100cc noted. kept tube feeding off and kept patient HOB elevated. irrigated 100cc NS yonathan as MD ordered. urine drains light payam with blood tinged presents. will cont to monitor.
--- NOTE | 2020-04-25 17:50 | NUR ---
NURSE NOTES: notified dr tran regarding the residual and no new order noted.
--- NOTE | 2020-04-25 18:31 | Internal Med Progress Note ---
Subjective Date of Service: Apr 25, 2020 Physician Name KatherineTariq Attending Physician Dewayne Mendoza MD Current Medications Medications (Trade) Dose Ordered Sig/Jere Route PRN Reason Start Time Stop Time Status Last Admin Dose Admin Acetaminophen (Tylenol) 650 mg Q4H PRN ORAL fever 04/08/20 19:00 05/08/20 18:59 04/25/20 00:45 Ascorbic Acid (Vitamin C) 500 mg TWICE A DAY ORAL 04/14/20 18:00 05/14/20 17:59 04/25/20 17:03 Aspirin (ASA) 81 mg DAILY NG 04/18/20 18:45 06/02/20 18:44 04/25/20 09:03 Chlorhexidine Gluconate (Geno-Hex 2%) 1 applic DAILY@1999 TOPIC 04/08/20 20:00 07/07/20 19:59 04/24/20 21:43 Dextrose (Dextrose 50%) 25 ml Q30M PRN IV Hypoglycemia 04/17/20 12:00 07/16/20 11:59 Dextrose (Dextrose 50%) 50 ml Q30M PRN IV Hypoglycemia 04/17/20 12:00 07/16/20 11:59 Dextrose/ Electrolytes 1,000 ml @ 75 mls/hr [id number] IV 04/08/20 22:30 05/08/20 22:29 04/25/20 17:04 Enoxaparin Sodium (Lovenox) 40 mg DAILY SUBQ 04/14/20 20:00 07/13/20 19:59 04/25/20 09:04 Insulin Aspart (NovoLOG) Q6H SUBQ 04/17/20 12:00 07/16/20 11:59 Linezolid (Zyvox) 600 mg EVERY 12 HOURS ORAL 04/20/20 21:00 04/25/20 23:59 04/25/20 09:04 Metoclopramide HCl (Reglan) 5 mg Q6H PRN IVP Nausea & Vomiting 04/24/20 08:30 05/24/20 08:29 04/24/20 08:57 Metoprolol Tartrate (Lopressor) 5 mg Q1H PRN IVP spb more than 120 04/08/20 19:00 07/07/20 18:59 Multivitamins (Multivitamins) 1 tab DAILY ORAL 04/15/20 09:00 05/15/20 08:59 04/25/20 09:03 Ondansetron HCl (Zofran) 4 mg Q6H PRN IVP Nausea & Vomiting 04/08/20 19:00 05/08/20 18:59 04/25/20 18:04 Pantoprazole (Protonix) 40 mg DAILY IVP 04/24/20 09:00 05/24/20 08:59 04/25/20 09:07 Polyethylene Glycol (Miralax) 17 gm BEDTIME ORAL 04/09/20 21:00 05/09/20 20:59 04/24/20 21:44 Polyethylene Glycol (Miralax) 17 gm DAILYPRN PRN ORAL Constipation 04/08/20 19:00 05/08/20 18:59 Allergies: Coded Allergies: No Known Allergies (Unverified , 03/11/19) ROS Limited/Unobtainable: Yes Subjective 64 YO F with inoperable uterine cancer admitted with tachycardia. Now atrial fibrillation with rapid ventricular rate. Also COVID 19 positive. Cover for Int Med-DR Mendoza. New DVT RLE Objective Last Vital Signs Date Time Temp Pulse Resp B/P (MAP) Pulse Ox O2 Delivery O2 Flow Rate FiO2 04/25/20 16:56 110 04/25/20 16:00 98.6 20 124/60 (81) 100 04/25/20 09:00 Nasal Cannula 3.0 Laboratory Tests Test 04/25/20 00:11 04/25/20 05:43 04/25/20 09:35 04/25/20 11:55 POC Whole Blood Glucose Pending Pending Pending White Blood Count 9.4 K/UL (4.8-10.8) Red Blood Count 2.65 M/UL (4.20-5.40) L Hemoglobin 7.6 G/DL (12.0-16.0) L Hematocrit 23.0 % (37.0-47.0) L Mean Corpuscular Volume 87 FL (80-99) Mean Corpuscular Hemoglobin 28.7 PG (27.0-31.0) Mean Corpuscular Hemoglobin Concent 33.0 G/DL (32.0-36.0) Red Cell Distribution Width 13.9 % (11.6-14.8) Platelet Count 216 K/UL (150-450) Mean Platelet Volume 5.2 FL (6.5-10.1) L Neutrophils (%) (Auto) % (45.0-75.0) Lymphocytes (%) (Auto) % (20.0-45.0) Monocytes (%) (Auto) % (1.0-10.0) Eosinophils (%) (Auto) % (0.0-3.0) Basophils (%) (Auto) % (0.0-2.0) Differential Total Cells Counted 100 Neutrophils % (Manual) 82 % (45-75) H Lymphocytes % (Manual) 10 % (20-45) L Monocytes % (Manual) 6 % (1-10) Eosinophils % (Manual) 2 % (0-3) Basophils % (Manual) 0 % (0-2) Band Neutrophils 0 % (0-8) Platelet Estimate Adequate Platelet Morphology Normal Hypochromasia 3+ Spherocytes 1+ Erythrocyte Sedimentation Rate 87 MM/HR (0-30) H Sodium Level 136 MMOL/L (136-145) Potassium Level 4.1 MMOL/L (3.5-5.1) Chloride Level 105 MMOL/L (98-107) Carbon Dioxide Level 29 MMOL/L (21-32) Anion Gap 2 mmol/L (5-15) L Blood Urea Nitrogen 6 mg/dL (7-18) L Creatinine 0.4 MG/DL (0.55-1.30) L Estimat Glomerular Filtration Rate > 60 mL/min (>60) Glucose Level 96 MG/DL (74-106) Calcium Level 8.5 MG/DL (8.5-10.1) Phosphorus Level 2.8 MG/DL (2.5-4.9) Magnesium Level 1.8 MG/DL (1.8-2.4) Total Bilirubin 0.6 MG/DL (0.2-1.0) Aspartate Amino Transf (AST/SGOT) 19 U/L (15-37) Alanine Aminotransferase (ALT/SGPT) 23 U/L (12-78) Alkaline Phosphatase 74 U/L (46-116) C-Reactive Protein, Quantitative 6.3 mg/dL (0.00-0.90) H Total Protein 5.4 G/DL (6.4-8.2) L Albumin 2.1 G/DL (3.4-5.0) L Globulin 3.3 g/dL Albumin/Globulin Ratio 0.6 (1.0-2.7) L Test 04/25/20 17:05 POC Whole Blood Glucose Pending Intake and Output 04/24/20 04/25/20 19:00 07:00 Intake Total 950 ml Output Total 900 ml 600 ml Balance 50 ml -600 ml Free Water 60 ml IV Total 675 ml Tube Feeding 215 ml Output Urine Total 900 ml 600 ml # Bowel Movements 1 Objective PHYSICAL EXAMINATION: GENERAL: The patient awake, responsive, however altered and confused. The patient appears to be paler and chronically-ill appearing. HEAD AND NECK: Pupils are equal and reactive to light. Extraocular movements are intact. Neck was supple. No JVD. LUNGS: Bilateral air entry. Decreased air in the bases. HEART: S1, S2. Tachycardic, irregular. No murmur or gallop was appreciated. ABDOMEN: Soft, nondistended. Tenderness on the lower abdominal area. Mildly obese. EXTREMITIES: No cyanosis, clubbing, or edema. GENITOURINARY: The patient noted to have Lowe catheter with dark red urine collection in a Lowe catheter. NEUROLOGIC: Cranial nerves II through XII grossly intact. The patient moving all extremities equally. Sensory is intact. Gait was not able to assess due to the patient's status. RECTAL: Refused and deferred. PSYCHIATRIC: Mood and affect, unable to obtain due to the patient's status. Assessment/Plan Assessment/Plan ASSESSMENT: 1. COVID-19 pneumonia. 2. Altered mental status, most likely secondary to toxic metabolic encephalopathy. 3. Atrial fibrillation with rapid ventricular rate. 4. Anemia most likely secondary to acute blood loss. 5. Sepsis secondary to urinary tract infection as well as pneumonia. 6. Vaginal bleeding. 7. UTI=VRE 8. History of diabetes type 2. 9. Inoperable endometrial adenocarcinoma, status post brachytherapy. 10. Hypertension. 11. History of lacunar infarction. 12. Deep venous thrombisis Right leg PLAN: 1. Telemetry 2. Dr. Buitrago=Pulmonary/Critical Care 3. Dr. Wale Wu = Cardiology. 4. antibiotic=linezolid; S/P vancomycin and cefepime. 5. Admit to [facility] isolation COVID-19 room. 6. Code status =Full Code. 7. DVT - continue lovenox 8. S/P transfusion 3 units of packed RBC. 9. ID=Dr Gautam 10. Continue decadron 11. S/P IVC filter placement 04/20/20 12. S/P PEG placement 04/19/20 Tariq Murphy MD Apr 25, 2020 18:31
--- NOTE | 2020-04-25 18:54 | NUR ---
NURSE HAND-OFF REPORT: Important Events on Shift:[monitored gastric residual, 1 u PRBC given, medicated for reisudal of 100cc. hand irrigated f/c as ordered. patient orientation is improving. d/c jyoti soft wrists restraints. ] Patient Status: [improving] Diet: [glucerna 1.2 @ 50cc] Pending Orders: [labs] Pending Results/Labs:[in am] Pending MD notification:[] Latest Vital Signs: Temperature 98.6 , Pulse 110 , B/P 124 /60 , Respiratory Rate 20 , O2 SAT 100 , Nasal Cannula, O2 Flow Rate 3.0 . Vital Sign Comment: [] EKG Rhythm: Sinus Tachycardia Rhythm change?: N MD Notified?: N - MD Response: Latest Ortega Fall Score: 55 Fall Risk: High Risk Safety Measures: Call light Within Reach, Bed Alarm Zone 2, Side Rails Side Rails x3, Bed position Low and Locked. Fall Precautions: Yellow Socks Yellow Gown Door Sign Patient Fall Education Report given to [Danielle].
[2020-04-25 20:00] VITALS: BP 135/63
--- NOTE | 2020-04-25 20:44 | NUR ---
NURSE NOTES: Received patient report from RUTHIE Sinclair. Patient is AO x1. Patient shows no signs of distress or pain at the time. Patient is on G tube feeding. Currently feeding is turned off. Per dayshift report, patient had residual >100. Upon my assessment, patient still has residual of 50cc. Will continue to turn feeding off and will reassess residual. Lowe is intact and patent. Patient still has hematuria present. Lowe was irrigated by me. IV is intact and patent. There are no signs of erythema, infiltration, or bleeding. Patient is edematous on both arms. Bed is in the lowest position, call light is within reach, side rails up x3. Will continue to monitor.
[2020-04-25] MEDS: Miralax 17gm pkt ORAL SCH (20:54)
[2020-04-25] MEDS: Dyna-Hex 2% Top Sol 2oz TOPIC SCH (20:54)
[2020-04-26] VITALS (7 sets, daily range): BP systolic 113–138; BP diastolic 64–74
[2020-04-26] MEDS: NovoLOG Insulin Flexpen SUBQ SCH ×4 (06:00→18:00)
[2020-04-26] MEDS: D5 1/2NS w/KCl 20mEq 1,000 ML IV SCH ×2 (06:04→20:07)
[2020-04-26 06:47] LABS: BASOPHILS % (AUTO) 2.3 % (0.0-2.0); EOSINOPHILS % (AUTO) 3.5 % (0.0-3.0); HEMATOCRIT 26.1 % (37.0-47.0); HEMOGLOBIN 8.7 G/DL (12.0-16.0); LYMPHOCYTES % (AUTO) 10.1 % (20.0-45.0); MEAN CORPUSCULAR VOLUME 88 FL (80-99); MONOCYTES % (AUTO) 7.1 % (1.0-10.0); NEUTROPHILS % (AUTO) 76.9 % (45.0-75.0); PLATELET COUNT 181 K/UL (150-450); RED BLOOD COUNT 2.97 M/UL (4.20-5.40); RED CELL DISTRIBUTION WIDTH 13.5 % (11.6-14.8)
--- NOTE | 2020-04-26 07:40 | NUR ---
NURSE HAND-OFF REPORT: Important Events on Shift:[Residual >50] Patient Status: []Full code Diet: [Glucerna 1.2 running 20cc/hr] Pending Orders: [NA] Pending Results/Labs:[NA] Pending MD notification:[NA] Latest Vital Signs: Temperature 98.8 , Pulse 106 , B/P 132 /67 , Respiratory Rate 17 , O2 SAT 98 , Nasal Cannula, O2 Flow Rate 3.0 . Vital Sign Comment: [NA] EKG Rhythm: Sinus Tachycardia Rhythm change?: N MD Notified?: N - MD Response: Latest Ortega Fall Score: 55 Fall Risk: High Risk Safety Measures: Call light Within Reach, Bed Alarm Zone 1, Side Rails Side Rails x2, Bed position Low and Locked. Fall Precautions: Yellow Socks Yellow Gown Door Sign Patient Fall Education Report given to [VARUN Urrutia].
--- NOTE | 2020-04-26 07:41 | NUR ---
NURSE NOTES: Received report from Reema/RN, Observed patient asleep, lying semi ceballos's , resting comfortably. AAO x1,. On 3L nasal canula, no acute distress/SOB noted at this time. IV site patent and intact. Lowe draining well to gravity. G-tube feeding running at 20cc at this time. Bed in low position and locked, Call light within reach. Encouraged to use call light when needed. Bed alarm is on, side rails up x3. Will continue plan of care.
--- NOTE | 2020-04-26 07:55 | Urology Progress Note ---
Assessment/Plan Status: stable, unchanged Assessment/Plan: 1. Gross hematuria. 2. UTI. 3. Proteinuria. 4. Urinary retention. 5. Probable neurogenic bladder. 6. Probable cystitis. 7. Possible adrenal adenoma. 8. Acute kidney injury history, which is improved. 9. Sepsis history. monitor clinically mcmanus hand irrigated and do PRN will consider larger mcmanus or CBI if needed s/p abx on ASA and lovenox, hold if hematuria worsens IVC filter placed monitor h/h renal fxn stable cysto at some point electively Subjective Allergies: Coded Allergies: No Known Allergies (Unverified , 03/11/19) Subjective all noted nurses hand irrigated mcmanus Objective Last 24 Hour Vital Signs Date Time Temp Pulse Resp B/P (MAP) Pulse Ox O2 Delivery O2 Flow Rate FiO2 04/26/20 04:00 98.8 106 17 132/67 (88) 98 04/26/20 04:00 102 04/26/20 00:00 98.6 104 18 138/64 (88) 97 04/26/20 00:00 106 04/25/20 21:00 Nasal Cannula 3.0 04/25/20 20:00 98.8 108 18 135/63 (87) 98 04/25/20 20:00 100 04/25/20 16:56 110 04/25/20 16:00 98.6 109 20 124/60 (81) 100 04/25/20 12:00 97.9 105 20 113/71 (85) 95 04/25/20 12:00 99 04/25/20 09:00 Nasal Cannula 3.0 04/25/20 08:00 90 04/25/20 08:00 96.0 105 21 106/73 (84) 100 Intake and Output 04/25/20 04/26/20 19:00 07:00 Intake Total 1010 ml 825 ml Output Total 700 ml 800 ml Balance 310 ml 25 ml Free Water 150 ml IV Total 295 ml 825 ml Tube Feeding 315 ml Blood Product 250 ml Output Urine Total 700 ml 800 ml # Voids 1 # Bowel Movements 1 Microbiology Date/Time Source Procedure Growth Status 04/20/20 12:50 Nasopharynx SARS-CoV-2 RdRp Gene Assay - Final Complete 04/12/20 19:30 Blood Blood Culture - Final NO GROWTH AFTER 5 DAYS Complete 04/09/20 08:00 Urine,Clean Catch Urine Culture - Final Enterococcus Faecium - Vre Complete 04/08/20 15:55 Rectum VRE Culture - Final Enterococcus Faecium - Vre Complete Current Medications Medications (Trade) Dose Ordered Sig/Jere Route PRN Reason Start Time Stop Time Status Last Admin Dose Admin Acetaminophen (Tylenol) 650 mg Q4H PRN ORAL fever 04/08/20 19:00 05/08/20 18:59 04/25/20 00:45 Ascorbic Acid (Vitamin C) 500 mg TWICE A DAY ORAL 04/14/20 18:00 05/14/20 17:59 04/25/20 17:03 Aspirin (ASA) 81 mg DAILY NG 04/18/20 18:45 06/02/20 18:44 04/25/20 09:03 Chlorhexidine Gluconate (Geno-Hex 2%) 1 applic DAILY@2000 TOPIC 04/08/20 20:00 07/07/20 19:59 04/25/20 20:54 Dextrose (Dextrose 50%) 25 ml Q30M PRN IV Hypoglycemia 04/17/20 12:00 07/16/20 11:59 Dextrose (Dextrose 50%) 50 ml Q30M PRN IV Hypoglycemia 04/17/20 12:00 07/16/20 11:59 Dextrose/ Electrolytes 1,000 ml @ 75 mls/hr [id number] IV 04/08/20 22:30 05/08/20 22:29 04/26/20 06:04 Enoxaparin Sodium (Lovenox) 40 mg DAILY SUBQ 04/14/20 20:00 07/13/20 19:59 04/25/20 09:04 Insulin Aspart (NovoLOG) Q6H SUBQ 04/17/20 12:00 07/16/20 11:59 Metoclopramide HCl (Reglan) 5 mg Q6H PRN IVP Nausea & Vomiting 04/24/20 08:30 05/24/20 08:29 04/24/20 08:57 Metoprolol Tartrate (Lopressor) 5 mg Q1H PRN IVP spb more than 120 04/08/20 19:00 07/07/20 18:59 Multivitamins (Multivitamins) 1 tab DAILY ORAL 04/15/20 09:00 05/15/20 08:59 04/25/20 09:03 Ondansetron HCl (Zofran) 4 mg Q6H PRN IVP Nausea & Vomiting 04/08/20 19:00 05/08/20 18:59 04/25/20 18:04 Pantoprazole (Protonix) 40 mg DAILY IVP 04/24/20 09:00 05/24/20 08:59 04/25/20 09:07 Polyethylene Glycol (Miralax) 17 gm BEDTIME ORAL 04/09/20 21:00 05/09/20 20:59 04/25/20 20:54 Polyethylene Glycol (Miralax) 17 gm DAILYPRN PRN ORAL Constipation 04/08/20 19:00 05/08/20 18:59 Laboratory Tests 04/25/20 09:35: White Blood Count 9.4, Red Blood Count 2.65L, Hemoglobin 7.6L, Hematocrit 23.0L, Mean Corpuscular Volume 87, Mean Corpuscular Hemoglobin 28.7, Mean Corpuscular Hemoglobin Concent 33.0, Red Cell Distribution Width 13.9, Platelet Count 216, Mean Platelet Volume 5.2L, Neutrophils (%) (Auto) , Lymphocytes (%) (Auto) , Monocytes (%) (Auto) , Eosinophils (%) (Auto) , Basophils (%) (Auto) , Differential Total Cells Counted 100, Neutrophils % (Manual) 82H, Lymphocytes % (Manual) 10L, Monocytes % (Manual) 6, Eosinophils % (Manual) 2, Basophils % (Manual) 0, Band Neutrophils 0, Platelet Estimate Adequate, Platelet Morphology Normal, Hypochromasia 3+, Spherocytes 1+, Erythrocyte Sedimentation Rate 87H, Sodium Level 136, Potassium Level 4.1, Chloride Level 105, Carbon Dioxide Level 29, Anion Gap 2L, Blood Urea Nitrogen 6L, Creatinine 0.4L, Estimat Glomerular Filtration Rate > 60, Glucose Level 96, Calcium Level 8.5, Phosphorus Level 2.8, Magnesium Level 1.8, Total Bilirubin 0.6, Aspartate Amino Transf (AST/SGOT) 19, Alanine Aminotransferase (ALT/SGPT) 23, Alkaline Phosphatase 74, C-Reactive Protein, Quantitative 6.3H, Total Protein 5.4L, Albumin 2.1L, Globulin 3.3, Albumin/Globulin Ratio 0.6L 04/25/20 11:55: POC Whole Blood Glucose [Pending] 04/25/20 17:05: POC Whole Blood Glucose [Pending] 04/26/20 00:12: POC Whole Blood Glucose [Pending] 04/26/20 05:56: POC Whole Blood Glucose [Pending] 04/26/20 06:29: White Blood Count 7.0, Red Blood Count 2.97L, Hemoglobin 8.7L, Hematocrit 26.1L, Mean Corpuscular Volume 88, Mean Corpuscular Hemoglobin 29.2, Mean Corpuscular Hemoglobin Concent 33.3, Red Cell Distribution Width 13.5, Platelet Count 181, Mean Platelet Volume 5.5L, Neutrophils (%) (Auto) 76.9H, Lymphocytes (%) (Auto) 10.1L, Monocytes (%) (Auto) 7.1, Eosinophils (%) (Auto) 3.5H, Basophils (%) (Auto) 2.3H Height (Feet): 5 Height (Inches): 5.00 Weight (Pounds): 201 Objective exam stable mcmanus indwelling urine blood-tinged/payam, clearer LE duplex (04/19) (+) DVT Bong Valerio MD Apr 26, 2020 07:55
--- NOTE | 2020-04-26 09:01 | Pulmonology Progress Note ---
Subjective ROS Limited/Unobtainable: Yes Constitutional: Reports: no symptoms, fatigue HEENT: Repors: no symptoms Allergies: Coded Allergies: No Known Allergies (Unverified , 03/11/19) Objective Last 24 Hour Vital Signs Date Time Temp Pulse Resp B/P (MAP) Pulse Ox O2 Delivery O2 Flow Rate FiO2 04/26/20 04:00 98.8 106 17 132/67 (88) 98 04/26/20 04:00 102 04/26/20 00:00 98.6 104 18 138/64 (88) 97 04/26/20 00:00 106 04/25/20 21:00 Nasal Cannula 3.0 04/25/20 20:00 98.8 108 18 135/63 (87) 98 04/25/20 20:00 100 04/25/20 16:56 110 04/25/20 16:00 98.6 109 20 124/60 (81) 100 04/25/20 12:00 97.9 105 20 113/71 (85) 95 04/25/20 12:00 99 Intake and Output 04/25/20 04/26/20 19:00 07:00 Intake Total 1010 ml 825 ml Output Total 700 ml 800 ml Balance 310 ml 25 ml Free Water 150 ml IV Total 295 ml 825 ml Tube Feeding 315 ml Blood Product 250 ml Output Urine Total 700 ml 800 ml # Voids 1 # Bowel Movements 1 General Appearance: WD/WN HEENT: normocephalic, atraumatic Respiratory: chest wall non-tender, lungs clear Breasts: no masses Cardiovascular: normal peripheral pulses Abdomen: normal bowel sounds, soft, non tender Extremities: no cyanosis 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, alert Lymphatic: no neck adenopathy Laboratory Tests 04/25/20 09:35: White Blood Count 9.4, Red Blood Count 2.65L, Hemoglobin 7.6L, Hematocrit 23.0L, Mean Corpuscular Volume 87, Mean Corpuscular Hemoglobin 28.7, Mean Corpuscular Hemoglobin Concent 33.0, Red Cell Distribution Width 13.9, Platelet Count 216, Mean Platelet Volume 5.2L, Neutrophils (%) (Auto) , Lymphocytes (%) (Auto) , Monocytes (%) (Auto) , Eosinophils (%) (Auto) , Basophils (%) (Auto) , Differential Total Cells Counted 100, Neutrophils % (Manual) 82H, Lymphocytes % (Manual) 10L, Monocytes % (Manual) 6, Eosinophils % (Manual) 2, Basophils % (Manual) 0, Band Neutrophils 0, Platelet Estimate Adequate, Platelet Morphology Normal, Hypochromasia 3+, Spherocytes 1+, Erythrocyte Sedimentation Rate 87H, Sodium Level 136, Potassium Level 4.1, Chloride Level 105, Carbon Dioxide Level 29, Anion Gap 2L, Blood Urea Nitrogen 6L, Creatinine 0.4L, Estimat Glomerular Filtration Rate > 60, Glucose Level 96, Calcium Level 8.5, Phosphorus Level 2.8, Magnesium Level 1.8, Total Bilirubin 0.6, Aspartate Amino Transf (AST/SGOT) 19, Alanine Aminotransferase (ALT/SGPT) 23, Alkaline Phosphatase 74, C-Reactive Protein, Quantitative 6.3H, Total Protein 5.4L, Albumin 2.1L, Globulin 3.3, Albumin/Globulin Ratio 0.6L 04/25/20 11:55: POC Whole Blood Glucose [Pending] 04/25/20 17:05: POC Whole Blood Glucose [Pending] 04/26/20 00:12: POC Whole Blood Glucose [Pending] 04/26/20 05:56: POC Whole Blood Glucose [Pending] 04/26/20 06:29: White Blood Count 7.0, Red Blood Count 2.97L, Hemoglobin 8.7L, Hematocrit 26.1L, Mean Corpuscular Volume 88, Mean Corpuscular Hemoglobin 29.2, Mean Corpuscular Hemoglobin Concent 33.3, Red Cell Distribution Width 13.5, Platelet Count 181, Mean Platelet Volume 5.5L, Neutrophils (%) (Auto) 76.9H, Lymphocytes (%) (Auto) 10.1L, Monocytes (%) (Auto) 7.1, Eosinophils (%) (Auto) 3.5H, Basophils (%) (Auto) 2.3H Current Medications Medications (Trade) Dose Ordered Sig/Jere Route PRN Reason Start Time Stop Time Status Last Admin Dose Admin Acetaminophen (Tylenol) 650 mg Q4H PRN ORAL fever 04/08/20 19:00 05/08/20 18:59 04/25/20 00:45 Ascorbic Acid (Vitamin C) 500 mg TWICE A DAY ORAL 04/14/20 18:00 05/14/20 17:59 04/25/20 17:03 Aspirin (ASA) 81 mg DAILY NG 04/18/20 18:45 06/02/20 18:44 04/25/20 09:03 Chlorhexidine Gluconate (Geno-Hex 2%) 1 applic DAILY@2000 TOPIC 04/08/20 20:00 07/07/20 19:59 04/25/20 20:54 Dextrose (Dextrose 50%) 25 ml Q30M PRN IV Hypoglycemia 04/17/20 12:00 07/16/20 11:59 Dextrose (Dextrose 50%) 50 ml Q30M PRN IV Hypoglycemia 04/17/20 12:00 07/16/20 11:59 Dextrose/ Electrolytes 1,000 ml @ 75 mls/hr [id number] IV 04/08/20 22:30 05/08/20 22:29 04/26/20 06:04 Enoxaparin Sodium (Lovenox) 40 mg DAILY SUBQ 04/14/20 20:00 07/13/20 19:59 04/25/20 09:04 Insulin Aspart (NovoLOG) Q6H SUBQ 04/17/20 12:00 07/16/20 11:59 Metoclopramide HCl (Reglan) 5 mg Q6H PRN IVP Nausea & Vomiting 04/24/20 08:30 05/24/20 08:29 04/24/20 08:57 Metoprolol Tartrate (Lopressor) 5 mg Q1H PRN IVP spb more than 120 04/08/20 19:00 07/07/20 18:59 Multivitamins (Multivitamins) 1 tab DAILY ORAL 04/15/20 09:00 05/15/20 08:59 04/25/20 09:03 Ondansetron HCl (Zofran) 4 mg Q6H PRN IVP Nausea & Vomiting 04/08/20 19:00 05/08/20 18:59 04/25/20 18:04 Pantoprazole (Protonix) 40 mg DAILY IVP 04/24/20 09:00 05/24/20 08:59 04/25/20 09:07 Polyethylene Glycol (Miralax) 17 gm BEDTIME ORAL 04/09/20 21:00 05/09/20 20:59 04/25/20 20:54 Polyethylene Glycol (Miralax) 17 gm DAILYPRN PRN ORAL Constipation 04/08/20 19:00 05/08/20 18:59 Assessment/Plan Problems: (1) Hemorrhagic shock (2) Sepsis (3) Bacteremia (4) History of CVA (cerebrovascular accident) (5) Rectal bleeding (6) Hematuria Assessment/Plan repeat cxr 04/25 negative s/p prbc times one yesterday looks comfortable somnolent ivc filter in place f/u ID recommendations check electrolytes GI note appreciated continue Decadron dvt prophylaxis. Marina Buitrago MD Apr 26, 2020 09:01
[2020-04-26] MEDS: Enoxaparin 40mg Inj SUBQ SCH (09:24)
[2020-04-26] MEDS: Pantoprazole Inj IVP SCH (09:24)
[2020-04-26] MEDS: Aspirin Baby 81mg NG SCH (09:25)
[2020-04-26] MEDS: Ascorbic Acid 500mg tab ORAL SCH ×2 (09:25→17:10)
--- NOTE | 2020-04-26 10:36 | General Progress Note ---
Subjective ROS Limited/Unobtainable: No Allergies: Coded Allergies: No Known Allergies (Unverified , 03/11/19) Objective Last 24 Hour Vital Signs Date Time Temp Pulse Resp B/P (MAP) Pulse Ox O2 Delivery O2 Flow Rate FiO2 04/26/20 08:00 97.5 102 22 131/71 (91) 100 04/26/20 04:00 98.8 106 17 132/67 (88) 98 04/26/20 04:00 102 04/26/20 00:00 98.6 104 18 138/64 (88) 97 04/26/20 00:00 106 04/25/20 21:00 Nasal Cannula 3.0 04/25/20 20:00 98.8 108 18 135/63 (87) 98 04/25/20 20:00 100 04/25/20 16:56 110 04/25/20 16:00 98.6 109 20 124/60 (81) 100 04/25/20 12:00 97.9 105 20 113/71 (85) 95 04/25/20 12:00 99 Intake and Output 04/25/20 04/26/20 19:00 07:00 Intake Total 1010 ml 825 ml Output Total 700 ml 800 ml Balance 310 ml 25 ml Free Water 150 ml IV Total 295 ml 825 ml Tube Feeding 315 ml Blood Product 250 ml Output Urine Total 700 ml 800 ml # Voids 1 # Bowel Movements 1 Laboratory Tests 04/25/20 11:55: POC Whole Blood Glucose [Pending] 04/25/20 17:05: POC Whole Blood Glucose [Pending] 04/26/20 00:12: POC Whole Blood Glucose [Pending] 04/26/20 05:56: POC Whole Blood Glucose [Pending] 04/26/20 06:29: White Blood Count 7.0, Red Blood Count 2.97L, Hemoglobin 8.7L, Hematocrit 26.1L, Mean Corpuscular Volume 88, Mean Corpuscular Hemoglobin 29.2, Mean Corpuscular Hemoglobin Concent 33.3, Red Cell Distribution Width 13.5, Platelet Count 181, Mean Platelet Volume 5.5L, Neutrophils (%) (Auto) 76.9H, Lymphocytes (%) (Auto) 10.1L, Monocytes (%) (Auto) 7.1, Eosinophils (%) (Auto) 3.5H, Basophils (%) (Auto) 2.3H Height (Feet): 5 Height (Inches): 5.00 Weight (Pounds): 201 General Appearance: no apparent distress EENT: normal ENT inspection Neck: supple Cardiovascular: normal rate Respiratory/Chest: decreased breath sounds Abdomen: normal bowel sounds, non tender, soft Extremities: non-tender Assessment/Plan Status: stable, unchanged Assessment/Plan: 1. History of hypertension. 2. Diabetes. 3. CVA. 4. UTI. 5. Colitis. 6. Endometrial cancer. 7. A.Fib no recurrent gib s/p PEG GTF monitor for residuals>>>> reglan 10 mg Q6 given elevated residuals will dc IVF if tolerates TF s/p one unit PRBC 10/5 hematuria care per urology fu cardiology recs Nima Park MD Apr 26, 2020 10:36
[2020-04-26] MEDS: Metoclopramide 10mg/2ml Inj IVP SCH ×3 (11:21→23:10)
--- NOTE | 2020-04-26 12:32 | NUR ---
Speech Note Dysphagia Service DC Note Pt presents with aspiration risk with poor overall prognosis. Pt is full code status. Leukocytosis is resolved. Pulmonary status improved. Pt is on GJ feeding with slow rate with NPO status. Please re-order, when plans of care changes for possible PO intake. I will sign off from service at this time. Harsh Suazo
--- NOTE | 2020-04-26 12:41 | Infectious Diseases Prog Note ---
Assessment/Plan Assessment: Right Fem DVT US 04/19/20 - Com. Fem. DVT Septic Shock- SP COVID19 pneumonia- on 2l NC> hypoxic on ABG, now at 4L NC> 3l N C -04/20 rapid COVID + -04/12 CXR: Bilateral infiltrates, developing since 04/08/2020, likely on the basis of pneumonia. -04/08 CXR: Mild diffuse peribronchial thickening in the absence of airspace consolidation, which is nonspecific but can be seen with infectious/inflammatory airways disease in the appropriate clinical context. rapid covid pcr + UTI, sp rx -04/09 ucx >100k VRE (E. faecium); S linezolid -04/08 u/a wbc tnct, nit neg, leuk +3; ucx <10k P, mirabilis (S Ceftriaxone, Zosyn), >100k gamma hemolytic strep Gram positive bacteremia- likely contaminant -04/08 Bcx 1/4 S. hominis, 2/4 S. auricularis ; 04/12 Bcx Neg Low grade fever, improvnig No leukocytosis Vaginal bleeding -CT abd/p wo: Study limited due to lack of IV contrast. Pulmonary findings could represent multifocal pneumonia or aspiration.These findings could also represent viral pneumonia, although this is not highly specific pattern. Prominent rectal stool burden with mild wall thickening could represent stercoral colitis in the proper context. Otherwise, diffuse large colonic stool burden could be a cause for pain. Left superior renal pole ill-defined mild hyperdensity could be a manifestation of chronic medical renal disease in the proper context. Consider outpatient CT adrenal glands to further evaluate indeterminate left adrenal 1.2 cm nodularity. Calcified fibroid uterus. Appendectomy. 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 Will continue to follow along with you. Subjective Allergies: Coded Allergies: No Known Allergies (Unverified , 03/11/19) afebrile >36hrs at 3l NC no leukocytosis off abx Objective Last 24 Hour Vital Signs Date Time Temp Pulse Resp B/P (MAP) Pulse Ox O2 Delivery O2 Flow Rate FiO2 04/26/20 09:00 Nasal Cannula 3.0 04/26/20 08:00 97.5 102 22 131/71 (91) 100 04/26/20 08:00 74 04/26/20 04:00 98.8 106 17 132/67 (88) 98 04/26/20 04:00 102 04/26/20 00:00 98.6 104 18 138/64 (88) 97 04/26/20 00:00 106 04/25/20 21:00 Nasal Cannula 3.0 04/25/20 20:00 98.8 108 18 135/63 (87) 98 04/25/20 20:00 100 04/25/20 16:56 110 04/25/20 16:00 98.6 109 20 124/60 (81) 100 Height (Feet): 5 Height (Inches): 5.00 Weight (Pounds): 201 HEAD AND NECK: Pupils are equal and reactive to light. Extraocular movements are intact. Neck was supple. No JVD. LUNGS: Bilateral air entry. Decreased air in the bases. HEART: S1, S2. Tachycardic, irregular. No murmur or gallop was appreciated. ABDOMEN: Soft, nondistended. Tenderness on the lower abdominal area. Mildly obese. EXTREMITIES: No cyanosis, clubbing, or edema. Laboratory Tests Test 04/25/20 17:05 04/26/20 00:12 04/26/20 05:56 04/26/20 06:29 POC Whole Blood Glucose Pending Pending Pending White Blood Count 7.0 K/UL (4.8-10.8) Red Blood Count 2.97 M/UL (4.20-5.40) L Hemoglobin 8.7 G/DL (12.0-16.0) L Hematocrit 26.1 % (37.0-47.0) L Mean Corpuscular Volume 88 FL (80-99) Mean Corpuscular Hemoglobin 29.2 PG (27.0-31.0) Mean Corpuscular Hemoglobin Concent 33.3 G/DL (32.0-36.0) Red Cell Distribution Width 13.5 % (11.6-14.8) Platelet Count 181 K/UL (150-450) Mean Platelet Volume 5.5 FL (6.5-10.1) L Neutrophils (%) (Auto) 76.9 % (45.0-75.0) H Lymphocytes (%) (Auto) 10.1 % (20.0-45.0) L Monocytes (%) (Auto) 7.1 % (1.0-10.0) Eosinophils (%) (Auto) 3.5 % (0.0-3.0) H Basophils (%) (Auto) 2.3 % (0.0-2.0) H Current Medications Medications (Trade) Dose Ordered Sig/Jere Route PRN Reason Start Time Stop Time Status Last Admin Dose Admin Acetaminophen (Tylenol) 650 mg Q4H PRN ORAL fever 04/08/20 19:00 05/08/20 18:59 04/25/20 00:45 Ascorbic Acid (Vitamin C) 500 mg TWICE A DAY ORAL 04/14/20 18:00 05/14/20 17:59 04/26/20 09:25 Aspirin (ASA) 81 mg DAILY NG 04/18/20 18:45 06/02/20 18:44 04/26/20 09:25 Chlorhexidine Gluconate (Geno-Hex 2%) 1 applic DAILY@2000 TOPIC 04/08/20 20:00 07/07/20 19:59 04/25/20 20:54 Dextrose (Dextrose 50%) 25 ml Q30M PRN IV Hypoglycemia 04/17/20 12:00 07/16/20 11:59 Dextrose (Dextrose 50%) 50 ml Q30M PRN IV Hypoglycemia 04/17/20 12:00 07/16/20 11:59 Dextrose/ Electrolytes 1,000 ml @ 75 mls/hr [id number] IV 04/08/20 22:30 05/08/20 22:29 04/26/20 06:04 Enoxaparin Sodium (Lovenox) 40 mg DAILY SUBQ 04/14/20 20:00 07/13/20 19:59 04/26/20 09:24 Insulin Aspart (NovoLOG) Q6H SUBQ 04/17/20 12:00 07/16/20 11:59 Metoclopramide HCl (Reglan) 10 mg Q6HR IVP 04/26/20 10:38 05/26/20 10:37 04/26/20 11:21 Metoprolol Tartrate (Lopressor) 5 mg Q1H PRN IVP spb more than 120 04/08/20 19:00 07/07/20 18:59 Multivitamins (Multivitamins) 1 tab DAILY ORAL 04/15/20 09:00 05/15/20 08:59 04/26/20 09:25 Ondansetron HCl (Zofran) 4 mg Q6H PRN IVP Nausea & Vomiting 04/08/20 19:00 05/08/20 18:59 04/25/20 18:04 Pantoprazole (Protonix) 40 mg DAILY IVP 04/24/20 09:00 05/24/20 08:59 04/26/20 09:24 Polyethylene Glycol (Miralax) 17 gm BEDTIME ORAL 04/09/20 21:00 05/09/20 20:59 04/25/20 20:54 Polyethylene Glycol (Miralax) 17 gm DAILYPRN PRN ORAL Constipation 04/08/20 19:00 05/08/20 18:59 Laurie Gautam M.D. Apr 26, 2020 12:41
--- NOTE | 2020-04-26 13:58 | Nephrology Progress Note ---
Assessment/Plan Problem List: (1) COVID-19 (2) Atrial fibrillation with RVR (3) Septic shock (4) Hemorrhagic shock (5) History of CVA (cerebrovascular accident) (6) Anemia Assessment Electrolyte abnormalities, normal BUN and creatinine(low phosphorus, low magnesium, low potassium,) Atrial fibrillation with fast ventricular rate Sepsis, COVID-19 Low BP upon admission with sepsis and vaginal /rectal hemorrhage Anemia, secondary to acute blood loss Toxic metabolic encephalopathy Hematuria History of CVA, lacunar infarct History of diabetes type 2 In operable endometrial adenocarcinoma status post brachytherapy History of hypertension Plan April 26: Today's labs reviewed. CBC okay. Hemoglobin 8.7. No chemistry panel done today. Renal parameters stable. Continue per consultants. April 25: Today's labs pending. Renal parameters stable. Continue per consultants. April 24: Labs reviewed. Renal parameters stable. Patient full code. Continue per consultants. April 23: Labs reviewed. Renal parameters stable. Continue per consultants. April 22: Status quo. Labs reviewed. Renal parameters stable. Continue per consultants. April 21: Status quo. Renal parameters stable. Continue per consultants. April 20: Lab reviewed. Renal parameters stable. April 19: Labs reviewed. Electrolytes and renal parameters stable. April 18: Labs reviewed. Electrolytes and renal parameters stable. April 17: Lab reviewed. Stable from renal standpoint of view April 16: Labs reviewed. Remains stable from renal standpoint of view. Continue per consultants. April 15: Labs reviewed. Electrolyte abnormalities addressed. Continue as is. April 14: Labs reviewed. Low phosphorus and low magnesium corrected. Continue per consultants. Blood pressure remains stable. April 13: Electrolytes within normal limit. Renal parameters within normal limit. Continue per consultants. April 12: Electrolyte abnormalities noted and addressed. Continue per consultants Magnesium IV supplement as needed Potassium IV supplement as needed Phosphorus IV supplement as needed Monitor electrolytes Monitor hemoglobin hematocrit IV Protonix Adjust IV fluid Antibiotics per consultants Subjective ROS Limited/Unobtainable: No Constitutional: Reports: malaise, weakness Objective Objective Last 24 Hour Vital Signs Date Time Temp Pulse Resp B/P (MAP) Pulse Ox O2 Delivery O2 Flow Rate FiO2 04/26/20 12:00 81 04/26/20 12:00 97.9 102 22 125/73 (90) 100 04/26/20 09:00 Nasal Cannula 3.0 04/26/20 08:00 97.5 102 22 131/71 (91) 100 04/26/20 08:00 74 04/26/20 04:00 98.8 106 17 132/67 (88) 98 04/26/20 04:00 102 04/26/20 00:00 98.6 104 18 138/64 (88) 97 04/26/20 00:00 106 04/25/20 21:00 Nasal Cannula 3.0 04/25/20 20:00 98.8 108 18 135/63 (87) 98 04/25/20 20:00 100 04/25/20 16:56 110 04/25/20 16:00 98.6 109 20 124/60 (81) 100 Intake and Output 04/25/20 04/26/20 19:00 07:00 Intake Total 1010 ml 825 ml Output Total 700 ml 800 ml Balance 310 ml 25 ml Free Water 150 ml IV Total 295 ml 825 ml Tube Feeding 315 ml Blood Product 250 ml Output Urine Total 700 ml 800 ml # Voids 1 # Bowel Movements 1 Laboratory Tests 04/25/20 17:05: POC Whole Blood Glucose [Pending] 04/26/20 00:12: POC Whole Blood Glucose [Pending] 04/26/20 05:56: POC Whole Blood Glucose [Pending] 04/26/20 06:29: White Blood Count 7.0, Red Blood Count 2.97L, Hemoglobin 8.7L, Hematocrit 26.1L, Mean Corpuscular Volume 88, Mean Corpuscular Hemoglobin 29.2, Mean Corpuscular Hemoglobin Concent 33.3, Red Cell Distribution Width 13.5, Platelet Count 181, Mean Platelet Volume 5.5L, Neutrophils (%) (Auto) 76.9H, Lymphocytes (%) (Auto) 10.1L, Monocytes (%) (Auto) 7.1, Eosinophils (%) (Auto) 3.5H, Basophils (%) (Auto) 2.3H Height (Feet): 5 Height (Inches): 5.00 Weight (Pounds): 201 General Appearance: no apparent distress Cardiovascular: tachycardia Respiratory/Chest: decreased breath sounds Abdomen: soft Objective No change Steven Edwards MD Apr 26, 2020 13:58
--- NOTE | 2020-04-26 14:17 | Surgery Progress Note ---
Surgery Progress Note Subjective Additional Comments no acute events Objective Last 24 Hour Vital Signs Date Time Temp Pulse Resp B/P (MAP) Pulse Ox O2 Delivery O2 Flow Rate FiO2 04/26/20 12:00 81 04/26/20 12:00 97.9 102 22 125/73 (90) 100 04/26/20 09:00 Nasal Cannula 3.0 04/26/20 08:00 97.5 102 22 131/71 (91) 100 04/26/20 08:00 74 04/26/20 04:00 98.8 106 17 132/67 (88) 98 04/26/20 04:00 102 04/26/20 00:00 98.6 104 18 138/64 (88) 97 04/26/20 00:00 106 04/25/20 21:00 Nasal Cannula 3.0 04/25/20 20:00 98.8 108 18 135/63 (87) 98 04/25/20 20:00 100 04/25/20 16:56 110 04/25/20 16:00 98.6 109 20 124/60 (81) 100 I&O Intake and Output 04/25/20 04/26/20 19:00 07:00 Intake Total 1010 ml 825 ml Output Total 700 ml 800 ml Balance 310 ml 25 ml Free Water 150 ml IV Total 295 ml 825 ml Tube Feeding 315 ml Blood Product 250 ml Output Urine Total 700 ml 800 ml # Voids 1 # Bowel Movements 1 Dressing: other Wound: other Cardiovascular: RSR Respiratory: decreased breath sounds Abdomen: non-tender, present bowel sounds Extremities: no edema, no tenderness, no cyanosis Laboratory Tests Test 04/25/20 17:05 04/26/20 00:12 04/26/20 05:56 04/26/20 06:29 POC Whole Blood Glucose Pending Pending Pending White Blood Count 7.0 K/UL (4.8-10.8) Red Blood Count 2.97 M/UL (4.20-5.40) L Hemoglobin 8.7 G/DL (12.0-16.0) L Hematocrit 26.1 % (37.0-47.0) L Mean Corpuscular Volume 88 FL (80-99) Mean Corpuscular Hemoglobin 29.2 PG (27.0-31.0) Mean Corpuscular Hemoglobin Concent 33.3 G/DL (32.0-36.0) Red Cell Distribution Width 13.5 % (11.6-14.8) Platelet Count 181 K/UL (150-450) Mean Platelet Volume 5.5 FL (6.5-10.1) L Neutrophils (%) (Auto) 76.9 % (45.0-75.0) H Lymphocytes (%) (Auto) 10.1 % (20.0-45.0) L Monocytes (%) (Auto) 7.1 % (1.0-10.0) Eosinophils (%) (Auto) 3.5 % (0.0-3.0) H Basophils (%) (Auto) 2.3 % (0.0-2.0) H Plan Problems: (1) Hematuria (2) Rectal bleeding Assessment & Plan: 64-year-old female identified to have rectal bleeding on admission. GI aware surgery aware no active bleeding at this time hemoglobin noted. Transfuse PRBC as needed. Pending scope consideration. passed swallow no bleeding on diet may need peg as per GI cont diet urology input appreciated mcmanus being irrigated supplements added for wound care DAILY ESTIMATED NEEDS: Needs based on Obesity, cardiac/ 67.6kg abw 22-27 kcals/kg 3105-8151 total kcals 1-1.5 g protein/kg 68-101 g total protein 25-30 mL/kg 7603-5538 total fluid mLs NUTRITION DIAGNOSIS: * Swallowing difficulty R/T dysphagia, h/o CVA, clinical condition as evidenced by seen by FLATTENING PRESS OPERATOR w/ rec for pureed moist texture w/ thin liquids. 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 CURRENT DIET:[facility] MED, pureed moist w/ thin liquids PO DIET RECOMMENDATIONS: Liberalized REGULAR w/ poor PO ([facility] MED+LOW NA w/ PO intake >50%) ADDITIONAL RECOMMENDATIONS: * Per SNF: HT=64" OV=141cqu (04/05/20) -> rec daily calibrated bedscale wt, monitor trend Possible wt loss of 68 lbs/29% in 13 months * W/ poor PO intake, add Glucerna TID w/ meals * Wound healing: Add MVI x 1, Vit C 500mg BID, ZnSO4 220mg QD x 10 days Woody (QD for now- increase to BID w/ good acceptance) added to tray * Monitor lytes, replete as needed (low k and mag) (3) Hemorrhagic shock (4) Acute CVA (cerebrovascular accident) (5) Septic shock (6) Anemia (7) Sepsis (8) Altered mental status (9) Atrial fibrillation with RVR (10) COVID-19 Assessment & Plan: ++ as per ID and pulm cxr noted (11) History of CVA (cerebrovascular accident) (12) Decubitus skin ulcer Assessment & Plan: Patient identified on admission to have a 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 apply therahoney to areas of slough. apply mositure barrier paste on the periwound. cover with optifoam dressing. change Q3D and PRN. Apply cavilon on both heels& malleoli. Cover each site with optifoam dressing. Change Q7D and PRN. DAILY ESTIMATED NEEDS: Needs based on Obesity, cardiac/ 67.6kg abw 22-27 kcals/kg 7279-1939 total kcals 1.25-1.5 g protein/kg 85-101 g total protein 25-30 mL/kg 6626-1322 total fluid mLs NUTRITION DIAGNOSIS: * Swallowing difficulty R/T dysphagia, h/o CVA, now s/p PEG placement. 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 CURRENT TF:Glucerna 1.2 @55 ENTERAL NUTRITION RECOMMENDATIONS: Glucerna 1.2 goal of 60ml/hr x24 hrs to provide 1440ml, 1728 kcal, 86g pro, 1159 ml free H2O Rec to Increase current TF to goal of 60ml/hr to meet 100% est needs Flush per MD/ HOB over 30 degrees ADDITIONAL RECOMMENDATIONS: * Per SNF: HT=64" BT=963ptu (04/05/20) -> rec daily calibrated bedscale wt, monitor trend Possible wt loss of 68 lbs/29% in 13 months * W/ poor PO intake, add Glucerna TID-now s/p PEG * Wound healing: Add MVI x 1, Vit C 500mg BID, ZnSO4 220mg QD x 10 days Woody BID * Monitor lytes, replete as needed Benyamini,Elian Apr 26, 2020 14:17
--- NOTE | 2020-04-26 14:30 | Cardiology Progress Note ---
Assessment/Plan Assessment/Plan hs of hypertension, diabetes previous CVA dvt COVID infection Sinus tachy (incorrect diagnosis of afib with tachycardia) hypotension, a/ hemorraghic shock vaginal bleeding. anemia s/p prbc tx pt in covid isolation exam deferred tele personally reviewed sinus no svt no afib supportive care s/p ivc filter for prudence dvt and bleeding keep on tele monitoring bp seem ok remains on lmwh for dvt got prbc tx yest 10/5 hgb ok today is mildy tachy cxr personally reviewed looks rather clears sat 98-100% on 3 liters Subjective Subjective covid pt in soloalion per rn report from Reema/RN, Observed patient asleep, lying semi ceballos's , resting comfortably. AAO x1,. On 3L nasal canula, no acute distress/SOB noted at this time. IV site patent and intact. Lowe draining well to gravity. G-tube feeding running at 20cc at this time. Objective Last 24 Hour Vital Signs Date Time Temp Pulse Resp B/P (MAP) Pulse Ox O2 Delivery O2 Flow Rate FiO2 04/26/20 12:00 81 04/26/20 12:00 97.9 102 22 125/73 (90) 100 04/26/20 09:00 Nasal Cannula 3.0 04/26/20 08:00 97.5 102 22 131/71 (91) 100 04/26/20 08:00 74 04/26/20 04:00 98.8 106 17 132/67 (88) 98 04/26/20 04:00 102 04/26/20 00:00 98.6 104 18 138/64 (88) 97 04/26/20 00:00 106 04/25/20 21:00 Nasal Cannula 3.0 04/25/20 20:00 98.8 108 18 135/63 (87) 98 04/25/20 20:00 100 04/25/20 16:56 110 04/25/20 16:00 98.6 109 20 124/60 (81) 100 Intake and Output 04/25/20 04/26/20 19:00 07:00 Intake Total 1010 ml 825 ml Output Total 700 ml 800 ml Balance 310 ml 25 ml Free Water 150 ml IV Total 295 ml 825 ml Tube Feeding 315 ml Blood Product 250 ml Output Urine Total 700 ml 800 ml # Voids 1 # Bowel Movements 1 Laboratory Tests Test 04/25/20 17:05 04/26/20 00:12 04/26/20 05:56 04/26/20 06:29 POC Whole Blood Glucose Pending Pending Pending White Blood Count 7.0 K/UL (4.8-10.8) Red Blood Count 2.97 M/UL (4.20-5.40) L Hemoglobin 8.7 G/DL (12.0-16.0) L Hematocrit 26.1 % (37.0-47.0) L Mean Corpuscular Volume 88 FL (80-99) Mean Corpuscular Hemoglobin 29.2 PG (27.0-31.0) Mean Corpuscular Hemoglobin Concent 33.3 G/DL (32.0-36.0) Red Cell Distribution Width 13.5 % (11.6-14.8) Platelet Count 181 K/UL (150-450) Mean Platelet Volume 5.5 FL (6.5-10.1) L Neutrophils (%) (Auto) 76.9 % (45.0-75.0) H Lymphocytes (%) (Auto) 10.1 % (20.0-45.0) L Monocytes (%) (Auto) 7.1 % (1.0-10.0) Eosinophils (%) (Auto) 3.5 % (0.0-3.0) H Basophils (%) (Auto) 2.3 % (0.0-2.0) H Objective exam deferred as in isolation with active covid infection per ID note LUNGS: Bilateral air entry. Decreased air in the bases. HEART: S1, S2. Tachycardic, irregular. No murmur or gallop was appreciated. ABDOMEN: Soft, nondistended. Tenderness on the lower abdominal area. Mildly obese. EXTREMITIES: No cyanosis, clubbing, or edema. Wale Wu MD Apr 26, 2020 14:30
--- NOTE | 2020-04-26 14:55 | NUR ---
CASE MANAGEMENT: REVIEW SI: COVID-19 . PNA . T 97.5 HR 106 RR 22 BP 138/64 SAT 97% NC/3L H/H 8.7/26.1 BEDSIDE GLUCOSE 98 IS: PROTONIX IV Q12HR REGLAN IV Q6HR D5 1/2 NS w/KCl 20MEQ @ 75ML/HR TELEMETRY UNIT STATUS DCP: PATIENT IS FROM [facility]
--- NOTE | 2020-04-26 16:46 | Internal Med Progress Note ---
Subjective Date of Service: Apr 26, 2020 Physician Name Tariq Murphy Attending Physician Dweayne Mendoza MD Current Medications Medications (Trade) Dose Ordered Sig/Jere Route PRN Reason Start Time Stop Time Status Last Admin Dose Admin Acetaminophen (Tylenol) 650 mg Q4H PRN ORAL fever/pain 3-6 04/08/20 19:00 05/08/20 18:59 04/25/20 00:45 Ascorbic Acid (Vitamin C) 500 mg TWICE A DAY ORAL 04/14/20 18:00 05/14/20 17:59 04/26/20 09:25 Aspirin (ASA) 81 mg DAILY NG 04/18/20 18:45 06/02/20 18:44 04/26/20 09:25 Chlorhexidine Gluconate (Geno-Hex 2%) 1 applic DAILY@1999 TOPIC 04/08/20 20:00 07/07/20 19:59 04/25/20 20:54 Dextrose (Dextrose 50%) 25 ml Q30M PRN IV Hypoglycemia 04/17/20 12:00 07/16/20 11:59 Dextrose (Dextrose 50%) 50 ml Q30M PRN IV Hypoglycemia 04/17/20 12:00 07/16/20 11:59 Dextrose/ Electrolytes 1,000 ml @ 75 mls/hr [id number] IV 04/08/20 22:30 05/08/20 22:29 04/26/20 06:04 Enoxaparin Sodium (Lovenox) 40 mg DAILY SUBQ 04/14/20 20:00 07/13/20 19:59 04/26/20 09:24 Insulin Aspart (NovoLOG) Q6H SUBQ 04/17/20 12:00 07/16/20 11:59 Metoclopramide HCl (Reglan) 10 mg Q6HR IVP 04/26/20 10:38 05/26/20 10:37 04/26/20 11:21 Metoprolol Tartrate (Lopressor) 5 mg Q1H PRN IVP spb more than 120 04/08/20 19:00 07/07/20 18:59 Multivitamins (Multivitamins) 1 tab DAILY ORAL 04/15/20 09:00 05/15/20 08:59 04/26/20 09:25 Ondansetron HCl (Zofran) 4 mg Q6H PRN IVP Nausea & Vomiting 04/08/20 19:00 05/08/20 18:59 04/25/20 18:04 Pantoprazole (Protonix) 40 mg DAILY IVP 04/24/20 09:00 05/24/20 08:59 04/26/20 09:24 Polyethylene Glycol (Miralax) 17 gm BEDTIME ORAL 04/09/20 21:00 05/09/20 20:59 04/25/20 20:54 Polyethylene Glycol (Miralax) 17 gm DAILYPRN PRN ORAL Constipation 04/08/20 19:00 05/08/20 18:59 Allergies: Coded Allergies: No Known Allergies (Unverified , 03/11/19) ROS Limited/Unobtainable: Yes Subjective 64 YO F with inoperable uterine cancer admitted with tachycardia. Now atrial fibrillation with rapid ventricular rate. Also COVID 19 positive. Cover for Int Med-DR Mendoza. New DVT RLE Objective Last Vital Signs Date Time Temp Pulse Resp B/P (MAP) Pulse Ox O2 Delivery O2 Flow Rate FiO2 04/26/20 16:00 97.5 116 20 116/70 (85) 98 04/26/20 09:00 Nasal Cannula 3.0 Laboratory Tests Test 04/25/20 17:05 04/26/20 00:12 04/26/20 05:56 04/26/20 06:29 POC Whole Blood Glucose Pending Pending Pending White Blood Count 7.0 K/UL (4.8-10.8) Red Blood Count 2.97 M/UL (4.20-5.40) L Hemoglobin 8.7 G/DL (12.0-16.0) L Hematocrit 26.1 % (37.0-47.0) L Mean Corpuscular Volume 88 FL (80-99) Mean Corpuscular Hemoglobin 29.2 PG (27.0-31.0) Mean Corpuscular Hemoglobin Concent 33.3 G/DL (32.0-36.0) Red Cell Distribution Width 13.5 % (11.6-14.8) Platelet Count 181 K/UL (150-450) Mean Platelet Volume 5.5 FL (6.5-10.1) L Neutrophils (%) (Auto) 76.9 % (45.0-75.0) H Lymphocytes (%) (Auto) 10.1 % (20.0-45.0) L Monocytes (%) (Auto) 7.1 % (1.0-10.0) Eosinophils (%) (Auto) 3.5 % (0.0-3.0) H Basophils (%) (Auto) 2.3 % (0.0-2.0) H Intake and Output 04/25/20 04/26/20 19:00 07:00 Intake Total 1010 ml 825 ml Output Total 700 ml 800 ml Balance 310 ml 25 ml Free Water 150 ml IV Total 295 ml 825 ml Tube Feeding 315 ml Blood Product 250 ml Output Urine Total 700 ml 800 ml # Voids 1 # Bowel Movements 1 Objective PHYSICAL EXAMINATION: GENERAL: The patient awake, responsive, however altered and confused. The patient appears to be paler and chronically-ill appearing. HEAD AND NECK: Pupils are equal and reactive to light. Extraocular movements are intact. Neck was supple. No JVD. LUNGS: Bilateral air entry. Decreased air in the bases. HEART: S1, S2. Tachycardic, irregular. No murmur or gallop was appreciated. ABDOMEN: Soft, nondistended. Tenderness on the lower abdominal area. Mildly obese. EXTREMITIES: No cyanosis, clubbing, or edema. GENITOURINARY: The patient noted to have Lowe catheter with dark red urine collection in a Lowe catheter. NEUROLOGIC: Cranial nerves II through XII grossly intact. The patient moving all extremities equally. Sensory is intact. Gait was not able to assess due to the patient's status. RECTAL: Refused and deferred. PSYCHIATRIC: Mood and affect, unable to obtain due to the patient's status. Assessment/Plan Assessment/Plan ASSESSMENT: 1. COVID-19 pneumonia. 2. Altered mental status, most likely secondary to toxic metabolic encephalopathy. 3. Atrial fibrillation with rapid ventricular rate. 4. Anemia most likely secondary to acute blood loss. 5. Sepsis secondary to urinary tract infection as well as pneumonia. 6. Vaginal bleeding. 7. UTI=VRE 8. History of diabetes type 2. 9. Inoperable endometrial adenocarcinoma, status post brachytherapy. 10. Hypertension. 11. History of lacunar infarction. 12. Deep venous thrombisis Right leg 13. dysphagia PLAN: 1. Telemetry 2. Dr. Buitrago=Pulmonary/Critical Care 3. Dr. Wale Daneshrad = Cardiology. 4. antibiotic=linezolid; S/P vancomycin and cefepime. 5. Admit to droplet isolation COVID-19 room. 6. Code status =Full Code. 7. DVT - continue lovenox 8. S/P transfusion 3 units of packed RBC. 9. ID=Dr Gautam 10. Continue decadron 11. S/P IVC filter placement 04/20/20 12. S/P PEG placement 04/19/20 Tariq Murphy MD Apr 26, 2020 16:46
--- NOTE | 2020-04-26 19:20 | NUR ---
NURSE HAND-OFF REPORT: Important Events on Shift:NA Patient Status: Stable Diet: Tube feeding Pending Orders: Transfer to [place] Pending Results/Labs:Morning labs Pending MD notification:NA Latest Vital Signs: Temperature 97.5 , Pulse 103 , B/P 116 /70 , Respiratory Rate 20 , O2 SAT 98 , Nasal Cannula, O2 Flow Rate 3.0 . Vital Sign Comment: Stable EKG Rhythm: Sinus Tachycardia Rhythm change?: N MD Notified?: N - MD Response: Latest Ortega Fall Score: 55 Fall Risk: High Risk Safety Measures: Call light Within Reach, Bed Alarm Zone 1, Side Rails Side Rails x2, Bed position Low and Locked. Fall Precautions: Yellow Socks Yellow Gown Door Sign Patient Fall Education Report given to Godwin.
--- NOTE | 2020-04-26 20:00 | NUR ---
NURSE NOTES: RECEIVED PATIENT LYING IN BED WITH HEAD OF BED ELEVATED, ALERT/ORIENTED TO PERSON, PLACE, YEAR-REALITY ORIENTATION PROVIDED DURING ASSESSMENT, DENIES PAIN. NO SIGNS AND SYMPTOMS OF ACUTE CARDIO RESPIRATORY DISTRESS/SHORTNESS OF BREATH, DENIES CHEST PAIN, SINUS TACHY ON FROTHING MACHINE OPERATOR, BILATERAL UPPER EXTREMITIES EDEMATOUS +2 ON RIGHT UPPER EXTREMITY+1 ON LEFT EXTREMITY/NON PITTED, IV INTACT TO RIGHT AC/GAUGE 20, DENIES PAIN/STATED COOLING SENSATION WHEN FLUSHED. ABDOMEN OBESE/SOFT/NON DISTENDED, G TUBE INTACT/PATENT, ASPIRATED 20ML RESIDUAL, FLUSHED FOR PATENCY, NO REPORT OF N//V/D. SESAY CATHETER INTACT/PATENT, DRAINING REDDISH URINE VIA GRAVITY, SMALL CLOTS NOTED, IRRIGATED SESAY CATHETER, TOLERATED WELL. OPTIFOAM INTACT TO BILATERAL HEELS/SACRAL, REPOSITIONED FOR COMFORT/PRESSURE RELIEF, P200 FOR WOUND MANAGEMENT. SIDE RAILS UP X3/BED IN LOWEST POSITION FOR SAFETY, BED ALARM ACTIVATED, ENCOURAGED PATIENT TO UTILIZE CALL LIGHT FOR ASSISTANCE, VERBALIZED UNDERSTANDING. CONTINUE WITH CURRENT PLAN OF CARE. NAD.
[2020-04-26] MEDS: Dyna-Hex 2% Top Sol 2oz TOPIC SCH (21:06)
[2020-04-26] MEDS: Miralax 17gm pkt ORAL SCH (21:06)
--- NOTE | 2020-04-26 21:51 | NUR ---
TRANSFER TO FLOOR: Patient transferred to med surg, room 220 bed 2, per . Report given to . MEDICATIONS GIVEN TO VARUN LAMAS. Family and or S/O informed of transfer. TELEPHONE CALL PLACED TO JOSE FLOWER, REGARDING TRANSFER. Addendum: 04/26/20 at 2159 by ADAMS BELL RN CHARTED IN ERROR BY ORLIN/RUTHIE
--- NOTE | 2020-04-26 22:00 | NUR ---
TRANSFER TO FLOOR: Patient transferred to MED SURG, ROOM 420 BED 2, per . Report given to . NOTED WITHOUT BELONGINGS, MEDICATIONS GIVEN TO VARUN BLAS. Family and or S/O informed of transfer, JOSE CHING, , NOTIFIED OF TRANSFER AT 8920-04/26.
--- NOTE | 2020-04-26 22:07 | NUR ---
NURSE NOTES: Received patient transferred from Tele unit, awake, alert and oriented x3. On nasal cannula @ 3LPM. With Lowe catheter intact and draining with pinkish urine to draining bag. Gtube with abdominal binder in place connected to Glucerna 1.2 @20 cc per hour goal of 55. IV access on right AC g.22. Instructed patient to use call light for assistance. Bed in lowest, lock engaged and alarm on. Will continue to monitor.
--- NOTE | 2020-04-27 | NUR ---
NURSE NOTES: Bloody urine with some clots noted on Lowe catheter. Hand irrigated with NS of 120 ml (per Dr. Valerio notes, prn). More clots noted on irrigation. Gtube residual of 30ml kept feeding on 20cc per hour. Will continue to monitor.
[2020-04-27 04:30] VITALS: BP 121/84
[2020-04-27] MEDS: NovoLOG Insulin Flexpen SUBQ SCH ×4 (05:18→18:00)
[2020-04-27] MEDS: Metoclopramide 10mg/2ml Inj IVP SCH ×3 (05:31→17:15)
[2020-04-27] MEDS: D5 1/2NS w/KCl 20mEq 1,000 ML IV SCH (05:34)
--- NOTE | 2020-04-27 05:45 | NUR ---
NURSE NOTES: Gtube residual was 5. Increased rate to 30cc/hour. Lowe catheter is draining yellow to pinkish with scant amount of small clots this time.
[2020-04-27 06:15] LABS: BASOPHILS % (AUTO) 1.8 % (0.0-2.0); EOSINOPHILS % (AUTO) 3.3 % (0.0-3.0); HEMATOCRIT 26.1 % (37.0-47.0); HEMOGLOBIN 8.7 G/DL (12.0-16.0); LYMPHOCYTES % (AUTO) 10.9 % (20.0-45.0); MEAN CORPUSCULAR VOLUME 88 FL (80-99); PLATELET COUNT 178 K/UL (150-450); RED BLOOD COUNT 2.97 M/UL (4.20-5.40); RED CELL DISTRIBUTION WIDTH 13.8 % (11.6-14.8)
[2020-04-27 06:29] LABS: ANION GAP 6 mmol/L (5-15); BLOOD UREA NITROGEN 6 mg/dL (7-18); CALCIUM 8.1 MG/DL (8.5-10.1); CARBON DIOXIDE 28 MMOL/L (21-32); CHLORIDE 105 MMOL/L (98-107); CREATININE 0.4 MG/DL (0.55-1.30); SODIUM 139 MMOL/L (136-145)
--- NOTE | 2020-04-27 06:57 | NUR ---
NURSE HAND-OFF: Important Events on Shift:Transfer from [facility], wound picture taken and uploaded, dressings changed, increased feeding to 30cc @4am, hematuria@ MN, irrigation done, Patient Status: Diet:tube feeding glucerna 1.2 @30cc goal at 55. Pending Orders: am labs Pending Results/Labs: cbc, bmp Pending MD notification: Latest Vital Signs: Temperature 97.8 , Pulse 116 , B/P 121 /84 , Respiratory Rate 20 , O2 SAT 95 , Nasal Cannula, O2 Flow Rate 3.0 . Vital Sign Comment: Latest Ortega Fall Score: 55 Fall Risk: High Risk Safety Measures: Call light Within Reach, Bed Alarm Zone 1, Side Rails Side Rails x2, Bed position Low and Locked. Fall Precautions: Yellow Socks Yellow Gown Door Sign Patient Fall Education
--- NOTE | 2020-04-27 07:26 | NUR ---
HAND-OFF: Report given to VARUN Cook and to follow up with the MD about pt's hematuria and still getting Lovenox, pt has IVC filter on right neck.
[2020-04-27 08:00] VITALS: BP 108/62
--- NOTE | 2020-04-27 08:00 | NUR ---
NURSE NOTES: pt is awake in bed. G-tube inplace and infusing. elevated HOB. no coughing and aspiration noted. no SOB noted with O2 @3l/min via NC. No facial grimacing for pain and discomfort noted at this time. call light within reach, will follow plan of care.
--- NOTE | 2020-04-27 08:15 | Urology Progress Note ---
Assessment/Plan Status: stable, unchanged Assessment/Plan: 1. Gross hematuria. 2. UTI. 3. Proteinuria. 4. Urinary retention. 5. Probable neurogenic bladder. 6. Probable cystitis. 7. Possible adrenal adenoma. 8. Acute kidney injury history, which is improved. 9. Sepsis history. monitor clinically mcmanus hand irrigated and do PRN will consider larger mcmanus or CBI if needed s/p abx on ASA and lovenox, hold if hematuria worsens IVC filter placed monitor h/h renal fxn stable cysto at some point electively Subjective Allergies: Coded Allergies: No Known Allergies (Unverified , 03/11/19) Subjective all noted nurses hand irrigated mcmanus Objective Last 24 Hour Vital Signs Date Time Temp Pulse Resp B/P (MAP) Pulse Ox O2 Delivery O2 Flow Rate FiO2 04/27/20 04:30 97.8 116 20 121/84 (96) 95 04/26/20 23:15 98.1 113 20 120/66 (84) 97 04/26/20 21:00 Nasal Cannula 3.0 04/26/20 20:00 98.1 106 20 113/74 (87) 98 04/26/20 19:50 109 04/26/20 16:00 97.5 116 20 116/70 (85) 98 04/26/20 16:00 103 04/26/20 12:00 81 04/26/20 12:00 97.9 102 22 125/73 (90) 100 04/26/20 09:00 Nasal Cannula 3.0 Intake and Output 04/26/20 04/27/20 19:00 07:00 Intake Total 145 ml 1125 ml Output Total 900 ml 1200 ml Balance -755 ml -75 ml Free Water 30 ml 60 ml IV Total 75 ml 825 ml Tube Feeding 40 ml 240 ml Output Urine Total 900 ml 1200 ml # Bowel Movements 1 Microbiology Date/Time Source Procedure Growth Status 04/20/20 12:50 Nasopharynx SARS-CoV-2 RdRp Gene Assay - Final Complete 04/12/20 19:30 Blood Blood Culture - Final NO GROWTH AFTER 5 DAYS Complete 04/09/20 08:00 Urine,Clean Catch Urine Culture - Final Enterococcus Faecium - Vre Complete 04/08/20 15:55 Rectum VRE Culture - Final Enterococcus Faecium - Vre Complete Current Medications Medications (Trade) Dose Ordered Sig/Jere Route PRN Reason Start Time Stop Time Status Last Admin Dose Admin Acetaminophen (Tylenol) 650 mg Q4H PRN ORAL fever/pain 3-6 04/08/20 19:00 05/08/20 18:59 04/25/20 00:45 Ascorbic Acid (Vitamin C) 500 mg TWICE A DAY ORAL 04/14/20 18:00 05/14/20 17:59 04/26/20 17:10 Aspirin (ASA) 81 mg DAILY NG 04/18/20 18:45 06/02/20 18:44 04/26/20 09:25 Chlorhexidine Gluconate (Geno-Hex 2%) 1 applic DAILY@2000 TOPIC 04/08/20 20:00 07/07/20 19:59 04/26/20 21:06 Dextrose (Dextrose 50%) 25 ml Q30M PRN IV Hypoglycemia 04/17/20 12:00 07/16/20 11:59 Dextrose (Dextrose 50%) 50 ml Q30M PRN IV Hypoglycemia 04/17/20 12:00 07/16/20 11:59 Dextrose/ Electrolytes 1,000 ml @ 75 mls/hr [id number] IV 04/08/20 22:30 05/08/20 22:29 04/27/20 05:34 Enoxaparin Sodium (Lovenox) 40 mg DAILY SUBQ 04/14/20 20:00 07/13/20 19:59 04/26/20 09:24 Insulin Aspart (NovoLOG) Q6H SUBQ 04/17/20 12:00 07/16/20 11:59 Metoclopramide HCl (Reglan) 10 mg Q6HR IVP 04/26/20 10:38 05/26/20 10:37 04/27/20 05:31 Metoprolol Tartrate (Lopressor) 5 mg Q1H PRN IVP spb more than 120 04/08/20 19:00 07/07/20 18:59 Multivitamins (Multivitamins) 1 tab DAILY ORAL 04/15/20 09:00 05/15/20 08:59 04/26/20 09:25 Ondansetron HCl (Zofran) 4 mg Q6H PRN IVP Nausea & Vomiting 04/08/20 19:00 05/08/20 18:59 04/25/20 18:04 Pantoprazole (Protonix) 40 mg DAILY IVP 04/24/20 09:00 05/24/20 08:59 04/26/20 09:24 Polyethylene Glycol (Miralax) 17 gm BEDTIME ORAL 04/09/20 21:00 05/09/20 20:59 04/26/20 21:06 Polyethylene Glycol (Miralax) 17 gm DAILYPRN PRN ORAL Constipation 04/08/20 19:00 05/08/20 18:59 Laboratory Tests 04/27/20 05:51: White Blood Count 5.0, Red Blood Count 2.97L, Hemoglobin 8.7L, Hematocrit 26.1L, Mean Corpuscular Volume 88, Mean Corpuscular Hemoglobin 29.2, Mean Corpuscular Hemoglobin Concent 33.2, Red Cell Distribution Width 13.8, Platelet Count 178, Mean Platelet Volume 5.3L, Neutrophils (%) (Auto) 73.0, Lymphocytes (%) (Auto) 10.9L, Monocytes (%) (Auto) 11.0H, Eosinophils (%) (Auto) 3.3H, Basophils (%) (Auto) 1.8, Sodium Level 139, Potassium Level 4.0, Chloride Level 105, Carbon Dioxide Level 28, Anion Gap 6, Blood Urea Nitrogen 6L, Creatinine 0.4L, Estimat Glomerular Filtration Rate > 60, Glucose Level 103, Calcium Level 8.1L Height (Feet): 5 Height (Inches): 5.00 Weight (Pounds): 201 Objective exam stable mcmanus indwelling urine blood-tinged/payam, clearer LE duplex (04/19) (+) DVT Bong Valerio MD Apr 27, 2020 08:15
[2020-04-27] MEDS: Enoxaparin 40mg Inj SUBQ SCH (09:00)
[2020-04-27] MEDS: Aspirin Baby 81mg NG SCH (09:00)
--- NOTE | 2020-04-27 09:10 | Nephrology Progress Note ---
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 CHEM panel reasonable. Stable from renal standpoint of view. Continue per consultants. April 26: Today's labs reviewed. CBC okay. Hemoglobin 8.7. No chemistry panel done today. Renal parameters stable. Continue per consultants. April 25: Today's labs pending. Renal parameters stable. Continue per consultants. April 24: Labs reviewed. Renal parameters stable. Patient full code. Continue per consultants. April 23: Labs reviewed. Renal parameters stable. Continue per consultants. April 22: Status quo. Labs reviewed. Renal parameters stable. Continue per consultants. April 21: Status quo. Renal parameters stable. Continue per consultants. April 20: Lab reviewed. Renal parameters stable. April 19: Labs reviewed. Electrolytes and renal parameters stable. April 18: Labs reviewed. Electrolytes and renal parameters stable. April 17: Lab reviewed. Stable from renal standpoint of view April 16: Labs reviewed. Remains stable from renal standpoint of view. Continue per consultants. April 15: Labs reviewed. Electrolyte abnormalities addressed. Continue as is. April 14: Labs reviewed. Low phosphorus and low magnesium corrected. Continue per consultants. Blood pressure remains stable. April 13: Electrolytes within normal limit. Renal parameters within normal limit. Continue per consultants. April 12: Electrolyte abnormalities noted and addressed. Continue per consultants Magnesium IV supplement as needed Potassium IV supplement as needed Phosphorus IV supplement as needed Monitor electrolytes Monitor hemoglobin hematocrit IV Protonix Adjust IV fluid Antibiotics per consultants Subjective ROS Limited/Unobtainable: No Constitutional: Reports: malaise Objective Objective Last 24 Hour Vital Signs Date Time Temp Pulse Resp B/P (MAP) Pulse Ox O2 Delivery O2 Flow Rate FiO2 04/27/20 08:00 97.7 89 20 108/62 (77) 100 04/27/20 04:30 97.8 116 20 121/84 (96) 95 04/26/20 23:15 98.1 113 20 120/66 (84) 97 04/26/20 21:00 Nasal Cannula 3.0 04/26/20 20:00 98.1 106 20 113/74 (87) 98 04/26/20 19:50 109 04/26/20 16:00 97.5 116 20 116/70 (85) 98 04/26/20 16:00 103 04/26/20 12:00 81 04/26/20 12:00 97.9 102 22 125/73 (90) 100 Intake and Output 04/26/20 04/27/20 18:59 06:59 Intake Total 20 ml 1250 ml Output Total 900 ml 1200 ml Balance -880 ml 50 ml Free Water 90 ml IV Total 900 ml Tube Feeding 20 ml 260 ml Output Urine Total 900 ml 1200 ml # Bowel Movements 1 Laboratory Tests 04/27/20 05:51: White Blood Count 5.0, Red Blood Count 2.97L, Hemoglobin 8.7L, Hematocrit 26.1L, Mean Corpuscular Volume 88, Mean Corpuscular Hemoglobin 29.2, Mean Corpuscular Hemoglobin Concent 33.2, Red Cell Distribution Width 13.8, Platelet Count 178, Mean Platelet Volume 5.3L, Neutrophils (%) (Auto) 73.0, Lymphocytes (%) (Auto) 10.9L, Monocytes (%) (Auto) 11.0H, Eosinophils (%) (Auto) 3.3H, Basophils (%) (Auto) 1.8, Sodium Level 139, Potassium Level 4.0, Chloride Level 105, Carbon Dioxide Level 28, Anion Gap 6, Blood Urea Nitrogen 6L, Creatinine 0.4L, Estimat Glomerular Filtration Rate > 60, Glucose Level 103, Calcium Level 8.1L Height (Feet): 5 Height (Inches): 5.00 Weight (Pounds): 201 General Appearance: no apparent distress EENT: other - On nasal cannula Cardiovascular: tachycardia Respiratory/Chest: decreased breath sounds Abdomen: soft Objective No change Steven Edwards MD Apr 27, 2020 09:10
--- NOTE | 2020-04-27 09:38 | General Progress Note ---
Subjective ROS Limited/Unobtainable: No Allergies: Coded Allergies: No Known Allergies (Unverified , 03/11/19) Objective Last 24 Hour Vital Signs Date Time Temp Pulse Resp B/P (MAP) Pulse Ox O2 Delivery O2 Flow Rate FiO2 04/27/20 08:00 97.7 89 20 108/62 (77) 100 04/27/20 04:30 97.8 116 20 121/84 (96) 95 04/26/20 23:15 98.1 113 20 120/66 (84) 97 04/26/20 21:00 Nasal Cannula 3.0 04/26/20 20:00 98.1 106 20 113/74 (87) 98 04/26/20 19:50 109 04/26/20 16:00 97.5 116 20 116/70 (85) 98 04/26/20 16:00 103 04/26/20 12:00 81 04/26/20 12:00 97.9 102 22 125/73 (90) 100 Intake and Output 04/26/20 04/27/20 19:00 07:00 Intake Total 145 ml 1125 ml Output Total 900 ml 1200 ml Balance -755 ml -75 ml Free Water 30 ml 60 ml IV Total 75 ml 825 ml Tube Feeding 40 ml 240 ml Output Urine Total 900 ml 1200 ml # Bowel Movements 1 Laboratory Tests 04/27/20 05:51: White Blood Count 5.0, Red Blood Count 2.97L, Hemoglobin 8.7L, Hematocrit 26.1L, Mean Corpuscular Volume 88, Mean Corpuscular Hemoglobin 29.2, Mean Corpuscular Hemoglobin Concent 33.2, Red Cell Distribution Width 13.8, Platelet Count 178, Mean Platelet Volume 5.3L, Neutrophils (%) (Auto) 73.0, Lymphocytes (%) (Auto) 10.9L, Monocytes (%) (Auto) 11.0H, Eosinophils (%) (Auto) 3.3H, Basophils (%) (Auto) 1.8, Sodium Level 139, Potassium Level 4.0, Chloride Level 105, Carbon Dioxide Level 28, Anion Gap 6, Blood Urea Nitrogen 6L, Creatinine 0.4L, Estimat Glomerular Filtration Rate > 60, Glucose Level 103, Calcium Level 8.1L Height (Feet): 5 Height (Inches): 5.00 Weight (Pounds): 201 General Appearance: no apparent distress EENT: normal ENT inspection Neck: supple Cardiovascular: normal rate Respiratory/Chest: decreased breath sounds Abdomen: normal bowel sounds, non tender, soft Extremities: non-tender Assessment/Plan Status: stable, unchanged Assessment/Plan: 1. History of hypertension. 2. Diabetes. 3. CVA. 4. UTI. 5. Colitis. 6. Endometrial cancer. 7. A.Fib no recurrent gib s/p PEG GTF monitor for residuals>>>> reglan 10 mg Q6 given elevated residuals will dc IVF if tolerates TF s/p one unit PRBC 10/5 hematuria care per urology fu cardiology recs Nima Park MD Apr 27, 2020 09:38
--- NOTE | 2020-04-27 10:05 | NUR ---
NURSE NOTES: Per Dr. Valerio's note, Aspirin and lovenox is held due to worsening hematuria noted in mcmanus bag, will notify
[2020-04-27] MEDS: Ascorbic Acid 500mg tab ORAL SCH ×2 (10:15→17:14)
[2020-04-27] MEDS: Pantoprazole Inj IVP SCH (10:16)
--- NOTE | 2020-04-27 11:40 | Internal Med Progress Note ---
Subjective Date of Service: Apr 27, 2020 Physician Name KatherineTariq Attending Physician Dewayne Mendoza MD Current Medications Medications (Trade) Dose Ordered Sig/Jere Route PRN Reason Start Time Stop Time Status Last Admin Dose Admin Acetaminophen (Tylenol) 650 mg Q4H PRN ORAL fever/pain 3-6 04/08/20 19:00 05/08/20 18:59 04/25/20 00:45 Ascorbic Acid (Vitamin C) 500 mg TWICE A DAY ORAL 04/14/20 18:00 05/14/20 17:59 04/27/20 10:15 Aspirin (ASA) 81 mg DAILY NG 04/18/20 18:45 06/02/20 18:44 04/26/20 09:25 Chlorhexidine Gluconate (Geno-Hex 2%) 1 applic DAILY@2000 TOPIC 04/08/20 20:00 07/07/20 19:59 04/26/20 21:06 Dextrose (Dextrose 50%) 25 ml Q30M PRN IV Hypoglycemia 04/17/20 12:00 07/16/20 11:59 Dextrose (Dextrose 50%) 50 ml Q30M PRN IV Hypoglycemia 04/17/20 12:00 07/16/20 11:59 Dextrose/ Electrolytes 1,000 ml @ 75 mls/hr [id number] IV 04/08/20 22:30 05/08/20 22:29 04/27/20 05:34 Enoxaparin Sodium (Lovenox) 40 mg DAILY SUBQ 04/14/20 20:00 07/13/20 19:59 04/26/20 09:24 Insulin Aspart (NovoLOG) Q6H SUBQ 04/17/20 12:00 07/16/20 11:59 Metoclopramide HCl (Reglan) 10 mg Q6HR IVP 04/26/20 10:38 05/26/20 10:37 04/27/20 05:31 Multivitamins (Multivitamins) 1 tab DAILY ORAL 04/15/20 09:00 05/15/20 08:59 04/27/20 10:15 Ondansetron HCl (Zofran) 4 mg Q6H PRN IVP Nausea & Vomiting 04/08/20 19:00 05/08/20 18:59 04/25/20 18:04 Pantoprazole (Protonix) 40 mg DAILY IVP 04/24/20 09:00 05/24/20 08:59 04/27/20 10:16 Polyethylene Glycol (Miralax) 17 gm BEDTIME ORAL 04/09/20 21:00 05/09/20 20:59 04/26/20 21:06 Polyethylene Glycol (Miralax) 17 gm DAILYPRN PRN ORAL Constipation 04/08/20 19:00 05/08/20 18:59 Allergies: Coded Allergies: No Known Allergies (Unverified , 03/11/19) ROS Limited/Unobtainable: Yes Subjective 64 YO F with inoperable uterine cancer admitted with tachycardia. Now atrial fibrillation with rapid ventricular rate. Also COVID 19 positive. Cover for Int Med-DR Mendoza. New DVT RLE Objective Last Vital Signs Date Time Temp Pulse Resp B/P (MAP) Pulse Ox O2 Delivery O2 Flow Rate FiO2 04/27/20 09:00 Nasal Cannula 3.0 04/27/20 08:00 97.7 89 20 108/62 (77) 100 Laboratory Tests Test 04/27/20 05:51 White Blood Count 5.0 K/UL (4.8-10.8) Red Blood Count 2.97 M/UL (4.20-5.40) L Hemoglobin 8.7 G/DL (12.0-16.0) L Hematocrit 26.1 % (37.0-47.0) L Mean Corpuscular Volume 88 FL (80-99) Mean Corpuscular Hemoglobin 29.2 PG (27.0-31.0) Mean Corpuscular Hemoglobin Concent 33.2 G/DL (32.0-36.0) Red Cell Distribution Width 13.8 % (11.6-14.8) Platelet Count 178 K/UL (150-450) Mean Platelet Volume 5.3 FL (6.5-10.1) L Neutrophils (%) (Auto) 73.0 % (45.0-75.0) Lymphocytes (%) (Auto) 10.9 % (20.0-45.0) L Monocytes (%) (Auto) 11.0 % (1.0-10.0) H Eosinophils (%) (Auto) 3.3 % (0.0-3.0) H Basophils (%) (Auto) 1.8 % (0.0-2.0) Sodium Level 139 MMOL/L (136-145) Potassium Level 4.0 MMOL/L (3.5-5.1) Chloride Level 105 MMOL/L (98-107) Carbon Dioxide Level 28 MMOL/L (21-32) Anion Gap 6 mmol/L (5-15) Blood Urea Nitrogen 6 mg/dL (7-18) L Creatinine 0.4 MG/DL (0.55-1.30) L Estimat Glomerular Filtration Rate > 60 mL/min (>60) Glucose Level 103 MG/DL (74-106) Calcium Level 8.1 MG/DL (8.5-10.1) L Intake and Output 04/26/20 04/27/20 19:00 07:00 Intake Total 145 ml 1125 ml Output Total 900 ml 1200 ml Balance -755 ml -75 ml Free Water 30 ml 60 ml IV Total 75 ml 825 ml Tube Feeding 40 ml 240 ml Output Urine Total 900 ml 1200 ml # Bowel Movements 1 Objective PHYSICAL EXAMINATION: GENERAL: The patient awake, responsive, however altered and confused. The patient appears to be paler and chronically-ill appearing. HEAD AND NECK: Pupils are equal and reactive to light. Extraocular movements are intact. Neck was supple. No JVD. LUNGS: Bilateral air entry. Decreased air in the bases. HEART: S1, S2. Tachycardic, irregular. No murmur or gallop was appreciated. ABDOMEN: Soft, nondistended. Tenderness on the lower abdominal area. Mildly obese. EXTREMITIES: No cyanosis, clubbing, or edema. GENITOURINARY: The patient noted to have Lowe catheter with dark red urine collection in a Lowe catheter. NEUROLOGIC: Cranial nerves II through XII grossly intact. The patient moving all extremities equally. Sensory is intact. Gait was not able to assess due to the patient's status. RECTAL: Refused and deferred. PSYCHIATRIC: Mood and affect, unable to obtain due to the patient's status. Assessment/Plan Assessment/Plan ASSESSMENT: 1. COVID-19 pneumonia. 2. Altered mental status, most likely secondary to toxic metabolic encephalopathy. 3. Atrial fibrillation with rapid ventricular rate. 4. Anemia most likely secondary to acute blood loss. 5. Sepsis secondary to urinary tract infection as well as pneumonia. 6. Vaginal bleeding. 7. UTI=VRE 8. History of diabetes type 2. 9. Inoperable endometrial adenocarcinoma, status post brachytherapy. 10. Hypertension. 11. History of lacunar infarction. 12. Deep venous thrombisis Right leg 13. dysphagia PLAN: 1. Telemetry 2. Dr. Buitrago=Pulmonary/Critical Care 3. Dr. Wale Wu = Cardiology. 4. antibiotic=linezolid; S/P vancomycin and cefepime. 5. Admit to [place] [id number] room. 6. Code status =Full Code. 7. DVT - continue lovenox 8. S/P transfusion 3 units of packed RBC. 9. ID=Dr Gautam 10. Continue decadron 11. S/P IVC filter placement 04/20/20 12. S/P PEG placement 04/19/20 13. Discharge planning Tariq Murphy MD Apr 27, 2020 11:40
--- NOTE | 2020-04-27 11:54 | Pulmonology Progress Note ---
Subjective ROS Limited/Unobtainable: Yes Constitutional: Reports: no symptoms, fatigue HEENT: Repors: no symptoms Allergies: Coded Allergies: No Known Allergies (Unverified , 03/11/19) Objective Last 24 Hour Vital Signs Date Time Temp Pulse Resp B/P (MAP) Pulse Ox O2 Delivery O2 Flow Rate FiO2 04/27/20 09:00 Nasal Cannula 3.0 04/27/20 08:00 97.7 89 20 108/62 (77) 100 04/27/20 04:30 97.8 116 20 121/84 (96) 95 04/26/20 23:15 98.1 113 20 120/66 (84) 97 04/26/20 21:00 Nasal Cannula 3.0 04/26/20 20:00 98.1 106 20 113/74 (87) 98 04/26/20 19:50 109 04/26/20 16:00 97.5 116 20 116/70 (85) 98 04/26/20 16:00 103 04/26/20 12:00 81 04/26/20 12:00 97.9 102 22 125/73 (90) 100 Intake and Output 04/26/20 04/27/20 19:00 07:00 Intake Total 145 ml 1125 ml Output Total 900 ml 1200 ml Balance -755 ml -75 ml Free Water 30 ml 60 ml IV Total 75 ml 825 ml Tube Feeding 40 ml 240 ml Output Urine Total 900 ml 1200 ml # Bowel Movements 1 General Appearance: WD/WN HEENT: normocephalic, atraumatic Respiratory: chest wall non-tender, lungs clear Breasts: no masses Cardiovascular: normal peripheral pulses Abdomen: normal bowel sounds, soft, non tender Extremities: no cyanosis Neurologic: business continuity consultant II-XII 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, alert Lymphatic: no neck adenopathy Laboratory Tests 04/27/20 05:51: White Blood Count 5.0, Red Blood Count 2.97L, Hemoglobin 8.7L, Hematocrit 26.1L, Mean Corpuscular Volume 88, Mean Corpuscular Hemoglobin 29.2, Mean Corpuscular Hemoglobin Concent 33.2, Red Cell Distribution Width 13.8, Platelet Count 178, Mean Platelet Volume 5.3L, Neutrophils (%) (Auto) 73.0, Lymphocytes (%) (Auto) 10.9L, Monocytes (%) (Auto) 11.0H, Eosinophils (%) (Auto) 3.3H, Basophils (%) (Auto) 1.8, Sodium Level 139, Potassium Level 4.0, Chloride Level 105, Carbon Dioxide Level 28, Anion Gap 6, Blood Urea Nitrogen 6L, Creatinine 0.4L, Estimat Glomerular Filtration Rate > 60, Glucose Level 103, Calcium Level 8.1L Current Medications Medications (Trade) Dose Ordered Sig/Jere Route PRN Reason Start Time Stop Time Status Last Admin Dose Admin Acetaminophen (Tylenol) 650 mg Q4H PRN ORAL fever/pain 3-6 04/08/20 19:00 05/08/20 18:59 04/25/20 00:45 Ascorbic Acid (Vitamin C) 500 mg TWICE A DAY ORAL 04/14/20 18:00 05/14/20 17:59 04/27/20 10:15 Aspirin (ASA) 81 mg DAILY NG 04/18/20 18:45 06/02/20 18:44 04/26/20 09:25 Chlorhexidine Gluconate (Geno-Hex 2%) 1 applic DAILY@2000 TOPIC 04/08/20 20:00 07/07/20 19:59 04/26/20 21:06 Dextrose (Dextrose 50%) 25 ml Q30M PRN IV Hypoglycemia 04/17/20 12:00 07/16/20 11:59 Dextrose (Dextrose 50%) 50 ml Q30M PRN IV Hypoglycemia 04/17/20 12:00 07/16/20 11:59 Dextrose/ Electrolytes 1,000 ml @ 75 mls/hr [id number] IV 04/08/20 22:30 05/08/20 22:29 04/27/20 05:34 Enoxaparin Sodium (Lovenox) 40 mg DAILY SUBQ 04/14/20 20:00 07/13/20 19:59 04/26/20 09:24 Insulin Aspart (NovoLOG) Q6H SUBQ 04/17/20 12:00 07/16/20 11:59 Metoclopramide HCl (Reglan) 10 mg Q6HR IVP 04/26/20 10:38 05/26/20 10:37 04/27/20 05:31 Multivitamins (Multivitamins) 1 tab DAILY ORAL 04/15/20 09:00 05/15/20 08:59 04/27/20 10:15 Ondansetron HCl (Zofran) 4 mg Q6H PRN IVP Nausea & Vomiting 04/08/20 19:00 05/08/20 18:59 04/25/20 18:04 Pantoprazole (Protonix) 40 mg DAILY IVP 04/24/20 09:00 05/24/20 08:59 04/27/20 10:16 Polyethylene Glycol (Miralax) 17 gm BEDTIME ORAL 04/09/20 21:00 05/09/20 20:59 04/26/20 21:06 Polyethylene Glycol (Miralax) 17 gm DAILYPRN PRN ORAL Constipation 04/08/20 19:00 05/08/20 18:59 Assessment/Plan Problems: (1) Hemorrhagic shock (2) Sepsis (3) Bacteremia (4) History of CVA (cerebrovascular accident) (5) Rectal bleeding (6) Hematuria Assessment/Plan some blood in the mcmanus dc iv fluids looks comfortable somnolent ivc filter in place f/u ID recommendations check electrolytes Marina Buitrago MD Apr 27, 2020 11:54
--- NOTE | 2020-04-27 11:56 | Infectious Diseases Prog Note ---
Assessment/Plan Assessment: Right Fem DVT US 04/19/20 - Com. Fem. DVT Septic Shock- SP COVID19 pneumonia- on 2l NC> hypoxic on ABG, now at 4L NC> 3l N C -04/20 rapid COVID + -04/12 CXR: Bilateral infiltrates, developing since 04/08/2020, likely on the basis of pneumonia. -04/08 CXR: Mild diffuse peribronchial thickening in the absence of airspace consolidation, which is nonspecific but can be seen with infectious/inflammatory airways disease in the appropriate clinical context. rapid covid pcr + UTI, sp rx -04/09 ucx >100k VRE (E. faecium); S linezolid -04/08 u/a wbc tnct, nit neg, leuk +3; ucx <10k P, mirabilis (S Ceftriaxone, Zosyn), >100k gamma hemolytic strep Gram positive bacteremia- likely contaminant -04/08 Bcx 1/4 S. hominis, 2/4 S. auricularis ; 04/12 Bcx Neg Low grade fever, SP No leukocytosis Vaginal bleeding -CT abd/p wo: Study limited due to lack of IV contrast. Pulmonary findings could represent multifocal pneumonia or aspiration.These findings could also represent viral pneumonia, although this is not highly specific pattern. Prominent rectal stool burden with mild wall thickening could represent stercoral colitis in the proper context. Otherwise, diffuse large colonic stool burden could be a cause for pain. Left superior renal pole ill-defined mild hyperdensity could be a manifestation of chronic medical renal disease in the proper context. Consider outpatient CT adrenal glands to further evaluate indeterminate left adrenal 1.2 cm nodularity. Calcified fibroid uterus. Appendectomy. ROSA MARIA, SP AST elevation; SP inoperable endometrial adenocarcinoma sp brachytherapy 12/16/19 HTN CVA/TIA hx of DVT MDD HLD dysphagia Afib Dm2 chronic lacunar infarction w/ b/l ganglia and king radiata and L parietal lobe stroke hx of UTI [place] resident( [facility]) Plan: -Cont to monitor off abx -10/ SP ZYvox #14 - 04/17/20 SP remdesivir #5/5 -04/14 SP Cefepime #7/7 for Proteus UTI -04/12 SP IV Vancomycin #5 -f/u cx -Monitor CBC/CMP, temperatures -COVID19 isolation Thank you for this consultation. Will continue to follow along with you. Subjective Allergies: Coded Allergies: No Known Allergies (Unverified , 03/11/19) afebrile >48hrs at 3l NC no leukocytosis Objective Last 24 Hour Vital Signs Date Time Temp Pulse Resp B/P (MAP) Pulse Ox O2 Delivery O2 Flow Rate FiO2 04/27/20 09:00 Nasal Cannula 3.0 04/27/20 08:00 97.7 89 20 108/62 (77) 100 04/27/20 04:30 97.8 116 20 121/84 (96) 95 04/26/20 23:15 98.1 113 20 120/66 (84) 97 04/26/20 21:00 Nasal Cannula 3.0 04/26/20 20:00 98.1 106 20 113/74 (87) 98 04/26/20 19:50 109 04/26/20 16:00 97.5 116 20 116/70 (85) 98 04/26/20 16:00 103 04/26/20 12:00 81 04/26/20 12:00 97.9 102 22 125/73 (90) 100 Height (Feet): 5 Height (Inches): 5.00 Weight (Pounds): 201 HEAD AND NECK: Neck was supple. No JVD. LUNGS: Bilateral air entry. Decreased air in the bases. HEART: S1, S2. Tachycardic, irregular. No murmur or gallop was appreciated. ABDOMEN: Soft, nondistended. Tenderness on the lower abdominal area. Mildly obese. EXTREMITIES: No cyanosis, clubbing, or edema. Laboratory Tests Test 04/27/20 05:51 White Blood Count 5.0 K/UL (4.8-10.8) Red Blood Count 2.97 M/UL (4.20-5.40) L Hemoglobin 8.7 G/DL (12.0-16.0) L Hematocrit 26.1 % (37.0-47.0) L Mean Corpuscular Volume 88 FL (80-99) Mean Corpuscular Hemoglobin 29.2 PG (27.0-31.0) Mean Corpuscular Hemoglobin Concent 33.2 G/DL (32.0-36.0) Red Cell Distribution Width 13.8 % (11.6-14.8) Platelet Count 178 K/UL (150-450) Mean Platelet Volume 5.3 FL (6.5-10.1) L Neutrophils (%) (Auto) 73.0 % (45.0-75.0) Lymphocytes (%) (Auto) 10.9 % (20.0-45.0) L Monocytes (%) (Auto) 11.0 % (1.0-10.0) H Eosinophils (%) (Auto) 3.3 % (0.0-3.0) H Basophils (%) (Auto) 1.8 % (0.0-2.0) Sodium Level 139 MMOL/L (136-145) Potassium Level 4.0 MMOL/L (3.5-5.1) Chloride Level 105 MMOL/L (98-107) Carbon Dioxide Level 28 MMOL/L (21-32) Anion Gap 6 mmol/L (5-15) Blood Urea Nitrogen 6 mg/dL (7-18) L Creatinine 0.4 MG/DL (0.55-1.30) L Estimat Glomerular Filtration Rate > 60 mL/min (>60) Glucose Level 103 MG/DL (74-106) Calcium Level 8.1 MG/DL (8.5-10.1) L Current Medications Medications (Trade) Dose Ordered Sig/Jere Route PRN Reason Start Time Stop Time Status Last Admin Dose Admin Acetaminophen (Tylenol) 650 mg Q4H PRN ORAL fever/pain 3-6 04/08/20 19:00 05/08/20 18:59 04/25/20 00:45 Ascorbic Acid (Vitamin C) 500 mg TWICE A DAY ORAL 04/14/20 18:00 05/14/20 17:59 04/27/20 10:15 Aspirin (ASA) 81 mg DAILY NG 04/18/20 18:45 06/02/20 18:44 04/26/20 09:25 Chlorhexidine Gluconate (Geno-Hex 2%) 1 applic DAILY@1999 TOPIC 04/08/20 20:00 07/07/20 19:59 04/26/20 21:06 Dextrose (Dextrose 50%) 25 ml Q30M PRN IV Hypoglycemia 04/17/20 12:00 07/16/20 11:59 Dextrose (Dextrose 50%) 50 ml Q30M PRN IV Hypoglycemia 04/17/20 12:00 07/16/20 11:59 Dextrose/ Electrolytes 1,000 ml @ 75 mls/hr [id number] IV 04/08/20 22:30 05/08/20 22:29 04/27/20 05:34 Enoxaparin Sodium (Lovenox) 40 mg DAILY SUBQ 04/14/20 20:00 07/13/20 19:59 04/26/20 09:24 Insulin Aspart (NovoLOG) Q6H SUBQ 04/17/20 12:00 07/16/20 11:59 Metoclopramide HCl (Reglan) 10 mg Q6HR IVP 04/26/20 10:38 05/26/20 10:37 04/27/20 05:31 Multivitamins (Multivitamins) 1 tab DAILY ORAL 04/15/20 09:00 05/15/20 08:59 04/27/20 10:15 Ondansetron HCl (Zofran) 4 mg Q6H PRN IVP Nausea & Vomiting 04/08/20 19:00 05/08/20 18:59 04/25/20 18:04 Pantoprazole (Protonix) 40 mg DAILY IVP 04/24/20 09:00 05/24/20 08:59 04/27/20 10:16 Polyethylene Glycol (Miralax) 17 gm BEDTIME ORAL 04/09/20 21:00 05/09/20 20:59 04/26/20 21:06 Polyethylene Glycol (Miralax) 17 gm DAILYPRN PRN ORAL Constipation 04/08/20 19:00 05/08/20 18:59 Laurie Gautam M.D. Apr 27, 2020 11:56
[2020-04-27 12:00] VITALS: BP 128/63
--- NOTE | 2020-04-27 12:23 | NUR ---
RD ASSESSMENT & RECOMMENDATIONS SEE CARE ACTIVITY FOR COMPLETE ASSESSMENT DAILY ESTIMATED NEEDS: Needs based on Obesity, cardiac/ 67.6kg abw 22-27 kcals/kg 5554-0801 total kcals 1.25-1.5 g protein/kg 85-101 g total protein 25-30 mL/kg 9811-5164 total fluid mLs NUTRITION DIAGNOSIS: * Swallowing difficulty R/T dysphagia, h/o CVA, now s/p PEG placement. 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 CURRENT TF:Glucerna 1.2 @55 ENTERAL NUTRITION RECOMMENDATIONS: Glucerna 1.2 goal of 60ml/hr x24 hrs to provide 1440ml, 1728 kcal, 86g pro, 1159 ml free H2O - When tolerating TF @55ml/hr, rec to increase current TF to goal of 60ml/hr to meet 100% est needs - Flush per MD/ HOB over 30 degrees ADDITIONAL RECOMMENDATIONS: * Per SNF: HT=64" TH=313fmg (04/05/20) -> rec daily calibrated bedscale wt, monitor trend Possible wt loss of 68 lbs/29% in 13 months * W/ poor PO intake, add Glucerna TID-----> now s/p PEG * Wound healing- Con't MVI x 1, Vit C 500mg BID, ZnSO4 220mg QD x 10 days add Woody BID * Monitor lytes, replete as needed
--- NOTE | 2020-04-27 13:11 | NUR ---
*-*DISCHARGE PLANNING*-* PATIENT HAS BEEN REFERRED BACK TO: [facility] P: S/W DEONTE, WILL CALL BACK
[2020-04-27 16:00] VITALS: BP 133/68
--- NOTE | 2020-04-27 16:57 | NUR ---
CASE MANAGEMENT:REVIEW SI;COVID PNA. UTI. RT LEG DVT. 96.8 120 20 133/68 95% 3L NC H/H 8.7/26.1 IS;PROTONIX IV QD REGLAN IV Q6 VIT C GT BID MED SURG STATUS DCP;FROM [facility]
--- NOTE | 2020-04-27 17:45 | Surgery Progress Note ---
Surgery Progress Note Subjective Symptoms: improved, tolerating diet, passing flatus Objective Last 24 Hour Vital Signs Date Time Temp Pulse Resp B/P (MAP) Pulse Ox O2 Delivery O2 Flow Rate FiO2 04/27/20 16:00 97.9 120 20 133/68 (89) 96 04/27/20 12:00 96.8 94 18 128/63 (84) 99 04/27/20 09:00 Nasal Cannula 3.0 04/27/20 08:00 97.7 89 20 108/62 (77) 100 04/27/20 04:30 97.8 116 20 121/84 (96) 95 04/26/20 23:15 98.1 113 20 120/66 (84) 97 04/26/20 21:00 Nasal Cannula 3.0 04/26/20 20:00 98.1 106 20 113/74 (87) 98 04/26/20 19:50 109 I&O Intake and Output 04/26/20 04/27/20 19:00 07:00 Intake Total 145 ml 1125 ml Output Total 900 ml 1200 ml Balance -755 ml -75 ml Free Water 30 ml 60 ml IV Total 75 ml 825 ml Tube Feeding 40 ml 240 ml Output Urine Total 900 ml 1200 ml # Bowel Movements 1 Dressing: saturated Cardiovascular: RSR Respiratory: decreased breath sounds Abdomen: non-tender, present bowel sounds Extremities: no edema, no tenderness, no cyanosis Laboratory Tests Test 04/27/20 05:51 White Blood Count 5.0 K/UL (4.8-10.8) Red Blood Count 2.97 M/UL (4.20-5.40) L Hemoglobin 8.7 G/DL (12.0-16.0) L Hematocrit 26.1 % (37.0-47.0) L Mean Corpuscular Volume 88 FL (80-99) Mean Corpuscular Hemoglobin 29.2 PG (27.0-31.0) Mean Corpuscular Hemoglobin Concent 33.2 G/DL (32.0-36.0) Red Cell Distribution Width 13.8 % (11.6-14.8) Platelet Count 178 K/UL (150-450) Mean Platelet Volume 5.3 FL (6.5-10.1) L Neutrophils (%) (Auto) 73.0 % (45.0-75.0) Lymphocytes (%) (Auto) 10.9 % (20.0-45.0) L Monocytes (%) (Auto) 11.0 % (1.0-10.0) H Eosinophils (%) (Auto) 3.3 % (0.0-3.0) H Basophils (%) (Auto) 1.8 % (0.0-2.0) Sodium Level 139 MMOL/L (136-145) Potassium Level 4.0 MMOL/L (3.5-5.1) Chloride Level 105 MMOL/L (98-107) Carbon Dioxide Level 28 MMOL/L (21-32) Anion Gap 6 mmol/L (5-15) Blood Urea Nitrogen 6 mg/dL (7-18) L Creatinine 0.4 MG/DL (0.55-1.30) L Estimat Glomerular Filtration Rate > 60 mL/min (>60) Glucose Level 103 MG/DL (74-106) Calcium Level 8.1 MG/DL (8.5-10.1) L Plan Problems: (1) Hematuria (2) Rectal bleeding Assessment & Plan: 64-year-old female identified to have rectal bleeding on admission. GI aware surgery aware no active bleeding at this time hemoglobin noted. Transfuse PRBC as needed. Pending scope consideration. 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 CURRENT DIET:[facility] MED, pureed moist w/ thin liquids PO DIET RECOMMENDATIONS: Liberalized REGULAR w/ poor PO ([facility] MED+LOW NA w/ PO intake >50%) ADDITIONAL RECOMMENDATIONS: * Per SNF: HT=64" AC=002aoy (04/05/20) -> rec daily calibrated bedscale wt, monitor trend Possible wt loss of 68 lbs/29% in 13 months * W/ poor PO intake, add Glucerna TID w/ meals * Wound healing: Add MVI x 1, Vit C 500mg BID, ZnSO4 220mg QD x 10 days Woody (QD for now- increase to BID w/ good acceptance) added to tray * Monitor lytes, replete as needed (low k and mag) (3) Hemorrhagic shock (4) Acute CVA (cerebrovascular accident) (5) Septic shock (6) Anemia (7) Sepsis (8) Altered mental status (9) Atrial fibrillation with RVR (10) COVID-19 Assessment & Plan: ++ as per ID and pulm cxr noted (11) History of CVA (cerebrovascular accident) (12) Decubitus skin ulcer Assessment & Plan: Patient identified on admission to have a 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 apply therahoney to areas of slough. apply mositure barrier paste on the periwound. cover with optifoam dressing. change Q3D and PRN. Apply cavilon on both heels& malleoli. Cover each site with optifoam dressing. Change Q7D and PRN. DAILY ESTIMATED NEEDS: Needs based on Obesity, cardiac/ 67.6kg abw 22-27 kcals/kg 7319-8939 total kcals 1.25-1.5 g protein/kg 85-101 g total protein 25-30 mL/kg 8558-6931 total fluid mLs NUTRITION DIAGNOSIS: * Swallowing difficulty R/T dysphagia, h/o CVA, now s/p PEG placement. 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 CURRENT TF:Glucerna 1.2 @55 ENTERAL NUTRITION RECOMMENDATIONS: Glucerna 1.2 goal of 60ml/hr x24 hrs to provide 1440ml, 1728 kcal, 86g pro, 1159 ml free H2O Rec to Increase current TF to goal of 60ml/hr to meet 100% est needs Flush per MD/ HOB over 30 degrees ADDITIONAL RECOMMENDATIONS: * Per SNF: HT=64" IO=355fjj (04/05/20) -> rec daily calibrated bedscale wt, monitor trend Possible wt loss of 68 lbs/29% in 13 months * W/ poor PO intake, add Glucerna TID-now s/p PEG * Wound healing: Add MVI x 1, Vit C 500mg BID, ZnSO4 220mg QD x 10 days Woody BID * Monitor lytes, replete as needed Elian Ren Apr 27, 2020 17:45
--- NOTE | 2020-04-27 19:17 | NUR ---
HANDS OFF: REPORT GIVEN TO TASHI
--- NOTE | 2020-04-27 19:30 | NUR ---
NURSE NOTES: Patient in bed, awake and alert x3. On nasal cannula 2L with no signs of distress or SOB. G-tube in place and running as ordered. IV intact and patent. Lowe in place and draining to gravity; hematuria noted. Bed locked and in lowest position. Bed alarm on. Call light in reach. Will continue plan of care.
[2020-04-27 20:00] VITALS: BP 134/73
[2020-04-27] MEDS: Dyna-Hex 2% Top Sol 2oz TOPIC SCH (20:25)
[2020-04-27] MEDS: Miralax 17gm pkt ORAL SCH (20:25)
[2020-04-28] VITALS: BP 126/65
[2020-04-28] MEDS: NovoLOG Insulin Flexpen SUBQ SCH ×4 (01:00→18:00)
[2020-04-28] MEDS: Metoclopramide 10mg/2ml Inj IVP SCH ×4 (01:07→17:49)
[2020-04-28 04:00] VITALS: BP 130/77
[2020-04-28 06:34] LABS: BASOPHILS % (AUTO) 3.2 % (0.0-2.0); EOSINOPHILS % (AUTO) 4.8 % (0.0-3.0); HEMATOCRIT 27.5 % (37.0-47.0); LYMPHOCYTES % (AUTO) 14.7 % (20.0-45.0); MEAN CORPUSCULAR VOLUME 88 FL (80-99); MONOCYTES % (AUTO) 8.8 % (1.0-10.0); NEUTROPHILS % (AUTO) 68.5 % (45.0-75.0); PLATELET COUNT 188 K/UL (150-450); RED BLOOD COUNT 3.12 M/UL (4.20-5.40); RED CELL DISTRIBUTION WIDTH 14.3 % (11.6-14.8); WHITE BLOOD COUNT 5.8 K/UL (4.8-10.8)
[2020-04-28 06:43] LABS: ANION GAP 6 mmol/L (5-15); BLOOD UREA NITROGEN 6 mg/dL (7-18); CALCIUM 8.3 MG/DL (8.5-10.1); CARBON DIOXIDE 29 MMOL/L (21-32); CHLORIDE 104 MMOL/L (98-107); CREATININE 0.4 MG/DL (0.55-1.30); SODIUM 139 MMOL/L (136-145)
--- NOTE | 2020-04-28 07:19 | NUR ---
NURSE HAND-OFF: Important Events on Shift: Increased tube feeding to 40cc towards a goal of 55cc. Patient Status: Stable Diet: Glucerna 1.2 Pending Orders: N/A Pending Results/Labs: BMP, CBC Pending MD notification: N/A Latest Vital Signs: Temperature 98.2 , Pulse 106 , B/P 130 /77 , Respiratory Rate 17 , O2 SAT 98 , Nasal Cannula, O2 Flow Rate 3.0 . Vital Sign Comment: Latest Ortega Fall Score: 55 Fall Risk: High Risk Safety Measures: Call light Within Reach, Bed Alarm Zone 1, Side Rails Side Rails x2, Bed position Low and Locked. Fall Precautions: Yellow Socks Yellow Gown Door Sign Patient Fall Education Report given to VARUN Cook.
[2020-04-28 08:00] VITALS: BP 128/80
--- NOTE | 2020-04-28 08:04 | NUR ---
NURSE NOTES: pt is alert and awake in the bed, G-tube is inplace and infusing properly. no coughing and aspiration noted at this time. Respiration is even and unlabored; O2 inplace via NC. HOB elevated. no acute distress noted at this time. call light is within reach, will follow plan of care.
--- NOTE | 2020-04-28 08:57 | Urology Progress Note ---
Assessment/Plan Status: stable, unchanged Assessment/Plan: 1. Gross hematuria. 2. UTI. 3. Proteinuria. 4. Urinary retention. 5. Probable neurogenic bladder. 6. Probable cystitis. 7. Possible adrenal adenoma. 8. Acute kidney injury history, which is improved. 9. Sepsis history. monitor clinically mcmanus hand irrigated and do PRN will consider larger mcmanus or CBI if needed s/p abx off ASA and lovenox IVC filter placed monitor h/h renal fxn stable cysto at some point electively Subjective Allergies: Coded Allergies: No Known Allergies (Unverified , 03/11/19) Subjective all noted nurses hand irrigated mcmanus Objective Last 24 Hour Vital Signs Date Time Temp Pulse Resp B/P (MAP) Pulse Ox O2 Delivery O2 Flow Rate FiO2 04/28/20 08:00 98.2 105 20 128/80 (96) 99 04/28/20 04:00 98.2 106 17 130/77 (94) 98 04/28/20 00:00 97.9 114 18 126/65 (85) 99 04/27/20 20:54 Nasal Cannula 3.0 04/27/20 20:00 98.6 96 17 134/73 (93) 97 04/27/20 16:00 97.9 120 20 133/68 (89) 96 04/27/20 12:00 96.8 94 18 128/63 (84) 99 04/27/20 09:00 Nasal Cannula 3.0 Intake and Output 04/27/20 04/28/20 18:59 06:59 Output Total 1200 ml 850 ml Balance -1200 ml -850 ml Output Urine Total 1200 ml 850 ml # Voids 1 Microbiology Date/Time Source Procedure Growth Status 04/20/20 12:50 Nasopharynx SARS-CoV-2 RdRp Gene Assay - Final Complete 04/12/20 19:30 Blood Blood Culture - Final NO GROWTH AFTER 5 DAYS Complete 04/09/20 08:00 Urine,Clean Catch Urine Culture - Final Enterococcus Faecium - Vre Complete 04/08/20 15:55 Rectum VRE Culture - Final Enterococcus Faecium - Vre Complete Current Medications Medications (Trade) Dose Ordered Sig/Jere Route PRN Reason Start Time Stop Time Status Last Admin Dose Admin Acetaminophen (Tylenol) 650 mg Q4H PRN ORAL fever/pain 3-6 04/08/20 19:00 05/08/20 18:59 04/25/20 00:45 Ascorbic Acid (Vitamin C) 500 mg TWICE A DAY ORAL 04/14/20 18:00 05/14/20 17:59 04/27/20 17:14 Chlorhexidine Gluconate (Geno-Hex 2%) 1 applic DAILY@2000 TOPIC 04/08/20 20:00 07/07/20 19:59 04/27/20 20:25 Dextrose (Dextrose 50%) 25 ml Q30M PRN IV Hypoglycemia 04/17/20 12:00 07/16/20 11:59 Dextrose (Dextrose 50%) 50 ml Q30M PRN IV Hypoglycemia 04/17/20 12:00 07/16/20 11:59 Insulin Aspart (NovoLOG) Q6H SUBQ 04/17/20 12:00 07/16/20 11:59 Metoclopramide HCl (Reglan) 10 mg Q6HR IVP 04/26/20 10:38 05/26/20 10:37 04/28/20 05:53 Multivitamins (Multivitamins) 1 tab DAILY ORAL 04/15/20 09:00 05/15/20 08:59 04/27/20 10:15 Ondansetron HCl (Zofran) 4 mg Q6H PRN IVP Nausea & Vomiting 04/08/20 19:00 05/08/20 18:59 04/25/20 18:04 Pantoprazole (Protonix) 40 mg DAILY IVP 04/24/20 09:00 05/24/20 08:59 04/27/20 10:16 Polyethylene Glycol (Miralax) 17 gm BEDTIME ORAL 04/09/20 21:00 05/09/20 20:59 04/27/20 20:25 Polyethylene Glycol (Miralax) 17 gm DAILYPRN PRN ORAL Constipation 04/08/20 19:00 05/08/20 18:59 Laboratory Tests 04/28/20 06:11: White Blood Count 5.8, Red Blood Count 3.12L, Hemoglobin 9.0L, Hematocrit 27.5L, Mean Corpuscular Volume 88, Mean Corpuscular Hemoglobin 29.0, Mean Corpuscular Hemoglobin Concent 32.9, Red Cell Distribution Width 14.3, Platelet Count 188, Mean Platelet Volume 5.5L, Neutrophils (%) (Auto) 68.5, Lymphocytes (%) (Auto) 14.7L, Monocytes (%) (Auto) 8.8, Eosinophils (%) (Auto) 4.8H, Basophils (%) (Auto) 3.2H, Sodium Level 139, Potassium Level 4.0, Chloride Level 104, Carbon Dioxide Level 29, Anion Gap 6, Blood Urea Nitrogen 6L, Creatinine 0.4L, Estimat Glomerular Filtration Rate > 60, Glucose Level 103, Calcium Level 8.3L Height (Feet): 5 Height (Inches): 5.00 Weight (Pounds): 201 Objective exam stable mcmanus indwelling urine blood-tinged/payam, clearer LE duplex (04/19) (+) DVT Bong Valerio MD Apr 28, 2020 08:57
[2020-04-28] MEDS: Ascorbic Acid 500mg tab ORAL SCH ×2 (09:28→17:49)
[2020-04-28] MEDS: Pantoprazole Inj IVP SCH (09:28)
--- NOTE | 2020-04-28 10:29 | Nephrology Progress Note ---
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 Stable from renal standpoint of view. April 27: Today's labs reviewed. CHEM panel reasonable. Stable from renal standpoint of view. Continue per consultants. April 26: Today's labs reviewed. CBC okay. Hemoglobin 8.7. No chemistry panel done today. Renal parameters stable. Continue per consultants. April 25: Today's labs pending. Renal parameters stable. Continue per consultants. April 24: Labs reviewed. Renal parameters stable. Patient full code. Continue per consultants. April 23: Labs reviewed. Renal parameters stable. Continue per consultants. April 22: Status quo. Labs reviewed. Renal parameters stable. Continue per consultants. April 21: Status quo. Renal parameters stable. Continue per consultants. April 20: Lab reviewed. Renal parameters stable. April 19: Labs reviewed. Electrolytes and renal parameters stable. April 18: Labs reviewed. Electrolytes and renal parameters stable. April 17: Lab reviewed. Stable from renal standpoint of view April 16: Labs reviewed. Remains stable from renal standpoint of view. Continue per consultants. April 15: Labs reviewed. Electrolyte abnormalities addressed. Continue as is. April 14: Labs reviewed. Low phosphorus and low magnesium corrected. Continue per consultants. Blood pressure remains stable. April 13: Electrolytes within normal limit. Renal parameters within normal limit. Continue per consultants. April 12: Electrolyte abnormalities noted and addressed. Continue per consultants Magnesium IV supplement as needed Potassium IV supplement as needed Phosphorus IV supplement as needed Monitor electrolytes Monitor hemoglobin hematocrit IV Protonix Adjust IV fluid Antibiotics per consultants Subjective ROS Limited/Unobtainable: No Constitutional: Reports: malaise, weakness Objective Objective Last 24 Hour Vital Signs Date Time Temp Pulse Resp B/P (MAP) Pulse Ox O2 Delivery O2 Flow Rate FiO2 04/28/20 09:00 Nasal Cannula 3.0 04/28/20 08:00 98.2 105 20 128/80 (96) 99 04/28/20 04:00 98.2 106 17 130/77 (94) 98 04/28/20 00:00 97.9 114 18 126/65 (85) 99 04/27/20 20:54 Nasal Cannula 3.0 04/27/20 20:00 98.6 96 17 134/73 (93) 97 04/27/20 16:00 97.9 120 20 133/68 (89) 96 04/27/20 12:00 96.8 94 18 128/63 (84) 99 Intake and Output 04/27/20 04/28/20 18:59 06:59 Output Total 1200 ml 850 ml Balance -1200 ml -850 ml Output Urine Total 1200 ml 850 ml # Voids 1 Laboratory Tests 04/28/20 06:11: White Blood Count 5.8, Red Blood Count 3.12L, Hemoglobin 9.0L, Hematocrit 27.5L, Mean Corpuscular Volume 88, Mean Corpuscular Hemoglobin 29.0, Mean Corpuscular Hemoglobin Concent 32.9, Red Cell Distribution Width 14.3, Platelet Count 188, Mean Platelet Volume 5.5L, Neutrophils (%) (Auto) 68.5, Lymphocytes (%) (Auto) 14.7L, Monocytes (%) (Auto) 8.8, Eosinophils (%) (Auto) 4.8H, Basophils (%) (Auto) 3.2H, Sodium Level 139, Potassium Level 4.0, Chloride Level 104, Carbon Dioxide Level 29, Anion Gap 6, Blood Urea Nitrogen 6L, Creatinine 0.4L, Estimat Glomerular Filtration Rate > 60, Glucose Level 103, Calcium Level 8.3L Height (Feet): 5 Height (Inches): 5.00 Weight (Pounds): 201 General Appearance: no apparent distress EENT: other - On nasal cannula Cardiovascular: tachycardia Respiratory/Chest: decreased breath sounds Abdomen: soft Objective No change Steven Edwards MD Apr 28, 2020 10:28
[2020-04-28 12:00] VITALS: BP 118/74
--- NOTE | 2020-04-28 12:08 | Pulmonology Progress Note ---
Subjective ROS Limited/Unobtainable: No Constitutional: Reports: no symptoms, fatigue HEENT: Repors: no symptoms Allergies: Coded Allergies: No Known Allergies (Unverified , 03/11/19) Objective Last 24 Hour Vital Signs Date Time Temp Pulse Resp B/P (MAP) Pulse Ox O2 Delivery O2 Flow Rate FiO2 04/28/20 09:00 Nasal Cannula 3.0 04/28/20 08:00 98.2 105 20 128/80 (96) 99 04/28/20 04:00 98.2 106 17 130/77 (94) 98 04/28/20 00:00 97.9 114 18 126/65 (85) 99 04/27/20 20:54 Nasal Cannula 3.0 04/27/20 20:00 98.6 96 17 134/73 (93) 97 04/27/20 16:00 97.9 120 20 133/68 (89) 96 Intake and Output 04/27/20 04/28/20 19:00 07:00 Output Total 1200 ml 850 ml Balance -1200 ml -850 ml Output Urine Total 1200 ml 850 ml # Voids 1 General Appearance: WD/WN HEENT: normocephalic, atraumatic Respiratory: chest wall non-tender, lungs clear Breasts: no masses Cardiovascular: normal peripheral pulses Abdomen: normal bowel sounds, soft, non tender Extremities: no cyanosis Neurologic: 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 builder 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, alert Lymphatic: no neck adenopathy Laboratory Tests 04/28/20 06:11: White Blood Count 5.8, Red Blood Count 3.12L, Hemoglobin 9.0L, Hematocrit 27.5L, Mean Corpuscular Volume 88, Mean Corpuscular Hemoglobin 29.0, Mean Corpuscular Hemoglobin Concent 32.9, Red Cell Distribution Width 14.3, Platelet Count 188, Mean Platelet Volume 5.5L, Neutrophils (%) (Auto) 68.5, Lymphocytes (%) (Auto) 14.7L, Monocytes (%) (Auto) 8.8, Eosinophils (%) (Auto) 4.8H, Basophils (%) (Auto) 3.2H, Sodium Level 139, Potassium Level 4.0, Chloride Level 104, Carbon Dioxide Level 29, Anion Gap 6, Blood Urea Nitrogen 6L, Creatinine 0.4L, Estimat Glomerular Filtration Rate > 60, Glucose Level 103, Calcium Level 8.3L 10/8/20 11:54: POC Whole Blood Glucose 103 Current Medications Medications (Trade) Dose Ordered Sig/Jere Route PRN Reason Start Time Stop Time Status Last Admin Dose Admin Acetaminophen (Tylenol) 650 mg Q4H PRN ORAL fever/pain 3-6 04/08/20 19:00 05/08/20 18:59 04/25/20 00:45 Ascorbic Acid (Vitamin C) 500 mg TWICE A DAY ORAL 04/14/20 18:00 05/14/20 17:59 04/28/20 09:28 Chlorhexidine Gluconate (Geno-Hex 2%) 1 applic DAILY@2000 TOPIC 04/08/20 20:00 07/07/20 19:59 04/27/20 20:25 Dextrose (Dextrose 50%) 25 ml Q30M PRN IV Hypoglycemia 04/17/20 12:00 07/16/20 11:59 Dextrose (Dextrose 50%) 50 ml Q30M PRN IV Hypoglycemia 04/17/20 12:00 07/16/20 11:59 Insulin Aspart (NovoLOG) Q6H SUBQ 04/17/20 12:00 07/16/20 11:59 Metoclopramide HCl (Reglan) 10 mg Q6HR IVP 04/26/20 10:38 05/26/20 10:37 04/28/20 05:53 Multivitamins (Multivitamins) 1 tab DAILY ORAL 04/15/20 09:00 05/15/20 08:59 04/28/20 09:28 Ondansetron HCl (Zofran) 4 mg Q6H PRN IVP Nausea & Vomiting 04/08/20 19:00 05/08/20 18:59 04/25/20 18:04 Pantoprazole (Protonix) 40 mg DAILY IVP 04/24/20 09:00 05/24/20 08:59 04/28/20 09:28 Polyethylene Glycol (Miralax) 17 gm BEDTIME ORAL 04/09/20 21:00 05/09/20 20:59 04/27/20 20:25 Polyethylene Glycol (Miralax) 17 gm DAILYPRN PRN ORAL Constipation 04/08/20 19:00 05/08/20 18:59 Assessment/Plan Problems: (1) Hemorrhagic shock (2) Sepsis (3) Bacteremia (4) History of CVA (cerebrovascular accident) (5) Rectal bleeding (6) Hematuria Assessment/Plan urine is clear now looks comfortable somnolent ivc filter in place f/u ID recommendations check electrolytes Marina Buitrago MD Apr 28, 2020 12:08
--- NOTE | 2020-04-28 12:19 | General Progress Note ---
Subjective ROS Limited/Unobtainable: No Allergies: Coded Allergies: No Known Allergies (Unverified , 03/11/19) Objective Last 24 Hour Vital Signs Date Time Temp Pulse Resp B/P (MAP) Pulse Ox O2 Delivery O2 Flow Rate FiO2 04/28/20 09:00 Nasal Cannula 3.0 04/28/20 08:00 98.2 105 20 128/80 (96) 99 04/28/20 04:00 98.2 106 17 130/77 (94) 98 04/28/20 00:00 97.9 114 18 126/65 (85) 99 04/27/20 20:54 Nasal Cannula 3.0 04/27/20 20:00 98.6 96 17 134/73 (93) 97 04/27/20 16:00 97.9 120 20 133/68 (89) 96 Intake and Output 04/27/20 04/28/20 19:00 07:00 Output Total 1200 ml 850 ml Balance -1200 ml -850 ml Output Urine Total 1200 ml 850 ml # Voids 1 Laboratory Tests 04/28/20 06:11: White Blood Count 5.8, Red Blood Count 3.12L, Hemoglobin 9.0L, Hematocrit 27.5L, Mean Corpuscular Volume 88, Mean Corpuscular Hemoglobin 29.0, Mean Corpuscular Hemoglobin Concent 32.9, Red Cell Distribution Width 14.3, Platelet Count 188, Mean Platelet Volume 5.5L, Neutrophils (%) (Auto) 68.5, Lymphocytes (%) (Auto) 14.7L, Monocytes (%) (Auto) 8.8, Eosinophils (%) (Auto) 4.8H, Basophils (%) (Auto) 3.2H, Sodium Level 139, Potassium Level 4.0, Chloride Level 104, Carbon Dioxide Level 29, Anion Gap 6, Blood Urea Nitrogen 6L, Creatinine 0.4L, Estimat Glomerular Filtration Rate > 60, Glucose Level 103, Calcium Level 8.3L 04/28/20 11:54: POC Whole Blood Glucose 103 Height (Feet): 5 Height (Inches): 5.00 Weight (Pounds): 201 General Appearance: no apparent distress EENT: normal ENT inspection Neck: supple Cardiovascular: normal rate Respiratory/Chest: decreased breath sounds Abdomen: normal bowel sounds, non tender, soft Extremities: non-tender Assessment/Plan Status: stable, unchanged Assessment/Plan: 1. History of hypertension. 2. Diabetes. 3. CVA. 4. UTI. 5. Colitis. 6. Endometrial cancer. 7. A.Fib no recurrent gib s/p PEG GTF monitor for residuals>>>> reglan 10 mg Q6 given elevated residuals s/p one unit PRBC 10/5 hematuria care per urology fu cardiology recs Nima Park MD Apr 28, 2020 12:19
--- NOTE | 2020-04-28 14:07 | Infectious Diseases Prog Note ---
Assessment/Plan Assessment: Right Fem DVT US 04/19/20 - Com. Fem. DVT Septic Shock- SP COVID19 pneumonia- on 2l NC> hypoxic on ABG, now at 4L NC> 3l N C -04/20 rapid COVID + -04/12 CXR: Bilateral infiltrates, developing since 04/08/2020, likely on the basis of pneumonia. -04/08 CXR: Mild diffuse peribronchial thickening in the absence of airspace consolidation, which is nonspecific but can be seen with infectious/inflammatory airways disease in the appropriate clinical context. rapid covid pcr + UTI, sp rx -04/09 ucx >100k VRE (E. faecium); S linezolid -04/08 u/a wbc tnct, nit neg, leuk +3; ucx <10k P, mirabilis (S Ceftriaxone, Zosyn), >100k gamma hemolytic strep Gram positive bacteremia- likely contaminant -04/08 Bcx 1/4 S. hominis, 2/4 S. auricularis ; 04/12 Bcx Neg Low grade fever, SP No leukocytosis Vaginal bleeding -CT abd/p wo: Study limited due to lack of IV contrast. Pulmonary findings could represent multifocal pneumonia or aspiration.These findings could also represent viral pneumonia, although this is not highly specific pattern. Prominent rectal stool burden with mild wall thickening could represent stercoral colitis in the proper context. Otherwise, diffuse large colonic stool burden could be a cause for pain. Left superior renal pole ill-defined mild hyperdensity could be a manifestation of chronic medical renal disease in the proper context. Consider outpatient CT adrenal glands to further evaluate indeterminate left adrenal 1.2 cm nodularity. Calcified fibroid uterus. Appendectomy. ROSA MARIA, SP AST elevation; SP inoperable endometrial adenocarcinoma sp brachytherapy 12/16/19 HTN CVA/TIA hx of DVT MDD HLD dysphagia Afib Dm2 chronic lacunar infarction w/ b/l ganglia and king radiata and L parietal lobe stroke hx of UTI [place] resident( [facility]) Plan: -Cont to monitor off abx -10/ SP ZYvox #14 - 04/17/20 SP remdesivir #5/5 -04/14 SP Cefepime #7/7 for Proteus UTI -04/12 SP IV Vancomycin #5 -f/u cx -Monitor CBC/CMP, temperatures -COVID19 isolation Thank you for this consultation. Will continue to follow along with you. Subjective Allergies: Coded Allergies: No Known Allergies (Unverified , 03/11/19) afebrile at 3l NC no leukocytosis Objective Last 24 Hour Vital Signs Date Time Temp Pulse Resp B/P (MAP) Pulse Ox O2 Delivery O2 Flow Rate FiO2 04/28/20 12:00 98.6 102 20 118/74 (89) 97 04/28/20 09:00 Nasal Cannula 3.0 04/28/20 08:00 98.2 105 20 128/80 (96) 99 04/28/20 04:00 98.2 106 17 130/77 (94) 98 04/28/20 00:00 97.9 114 18 126/65 (85) 99 04/27/20 20:54 Nasal Cannula 3.0 04/27/20 20:00 98.6 96 17 134/73 (93) 97 04/27/20 16:00 97.9 120 20 133/68 (89) 96 Height (Feet): 5 Height (Inches): 5.00 Weight (Pounds): 201 HEAD AND NECK: Neck was supple. No JVD. LUNGS: Bilateral air entry. Decreased air in the bases. HEART: S1, S2. Tachycardic, irregular. No murmur or gallop was appreciated. ABDOMEN: Soft, nondistended. Tenderness on the lower abdominal area. Mildly obese. EXTREMITIES: No cyanosis, clubbing, or edema. Laboratory Tests Test 04/28/20 06:11 04/28/20 11:54 White Blood Count 5.8 K/UL (4.8-10.8) Red Blood Count 3.12 M/UL (4.20-5.40) L Hemoglobin 9.0 G/DL (12.0-16.0) L Hematocrit 27.5 % (37.0-47.0) L Mean Corpuscular Volume 88 FL (80-99) Mean Corpuscular Hemoglobin 29.0 PG (27.0-31.0) Mean Corpuscular Hemoglobin Concent 32.9 G/DL (32.0-36.0) Red Cell Distribution Width 14.3 % (11.6-14.8) Platelet Count 188 K/UL (150-450) Mean Platelet Volume 5.5 FL (6.5-10.1) L Neutrophils (%) (Auto) 68.5 % (45.0-75.0) Lymphocytes (%) (Auto) 14.7 % (20.0-45.0) L Monocytes (%) (Auto) 8.8 % (1.0-10.0) Eosinophils (%) (Auto) 4.8 % (0.0-3.0) H Basophils (%) (Auto) 3.2 % (0.0-2.0) H Sodium Level 139 MMOL/L (136-145) Potassium Level 4.0 MMOL/L (3.5-5.1) Chloride Level 104 MMOL/L (98-107) Carbon Dioxide Level 29 MMOL/L (21-32) Anion Gap 6 mmol/L (5-15) Blood Urea Nitrogen 6 mg/dL (7-18) L Creatinine 0.4 MG/DL (0.55-1.30) L Estimat Glomerular Filtration Rate > 60 mL/min (>60) Glucose Level 103 MG/DL (74-106) Calcium Level 8.3 MG/DL (8.5-10.1) L POC Whole Blood Glucose 103 MG/DL (74-106) Current Medications Medications (Trade) Dose Ordered Sig/Jere Route PRN Reason Start Time Stop Time Status Last Admin Dose Admin Acetaminophen (Tylenol) 650 mg Q4H PRN ORAL fever/pain 3-6 04/08/20 19:00 05/08/20 18:59 04/25/20 00:45 Ascorbic Acid (Vitamin C) 500 mg TWICE A DAY ORAL 04/14/20 18:00 05/14/20 17:59 04/28/20 09:28 Chlorhexidine Gluconate (Geno-Hex 2%) 1 applic DAILY@1999 TOPIC 04/08/20 20:00 07/07/20 19:59 04/27/20 20:25 Dextrose (Dextrose 50%) 25 ml Q30M PRN IV Hypoglycemia 04/17/20 12:00 07/16/20 11:59 Dextrose (Dextrose 50%) 50 ml Q30M PRN IV Hypoglycemia 04/17/20 12:00 07/16/20 11:59 Insulin Aspart (NovoLOG) Q6H SUBQ 04/17/20 12:00 07/16/20 11:59 Metoclopramide HCl (Reglan) 10 mg Q6HR IVP 04/26/20 10:38 05/26/20 10:37 04/28/20 12:15 Multivitamins (Multivitamins) 1 tab DAILY ORAL 04/15/20 09:00 05/15/20 08:59 04/28/20 09:28 Ondansetron HCl (Zofran) 4 mg Q6H PRN IVP Nausea & Vomiting 04/08/20 19:00 05/08/20 18:59 04/25/20 18:04 Pantoprazole (Protonix) 40 mg DAILY IVP 04/24/20 09:00 05/24/20 08:59 04/28/20 09:28 Polyethylene Glycol (Miralax) 17 gm BEDTIME ORAL 04/09/20 21:00 05/09/20 20:59 04/27/20 20:25 Polyethylene Glycol (Miralax) 17 gm DAILYPRN PRN ORAL Constipation 04/08/20 19:00 05/08/20 18:59 Laurie Gautam M.D. Apr 28, 2020 14:06
--- NOTE | 2020-04-28 15:31 | NUR ---
CASE MANAGEMENT: NOTE F/U CALL PLACED TO ADMISSIONS AT [facility]. ADMISSIONS IS UNAVAILABLE AT THIS TIME. CM WILL CONT TO F/U [facility] P: [phone]
[2020-04-28 16:00] VITALS: BP 118/66
--- NOTE | 2020-04-28 16:04 | Surgery Progress Note ---
Surgery Progress Note Subjective Symptoms: improved, tolerating diet, voiding well, passing flatus, BM Objective Last 24 Hour Vital Signs Date Time Temp Pulse Resp B/P (MAP) Pulse Ox O2 Delivery O2 Flow Rate FiO2 04/28/20 12:00 98.6 102 20 118/74 (89) 97 04/28/20 09:00 Nasal Cannula 3.0 04/28/20 08:00 98.2 105 20 128/80 (96) 99 04/28/20 04:00 98.2 106 17 130/77 (94) 98 04/28/20 00:00 97.9 114 18 126/65 (85) 99 04/27/20 20:54 Nasal Cannula 3.0 04/27/20 20:00 98.6 96 17 134/73 (93) 97 I&O Intake and Output 04/27/20 04/28/20 19:00 07:00 Output Total 1200 ml 850 ml Balance -1200 ml -850 ml Output Urine Total 1200 ml 850 ml # Voids 1 Dressing: saturated Cardiovascular: RSR Respiratory: decreased breath sounds Abdomen: non-tender, present bowel sounds Extremities: no edema, no tenderness, no cyanosis Laboratory Tests Test 04/28/20 06:11 04/28/20 11:54 White Blood Count 5.8 K/UL (4.8-10.8) Red Blood Count 3.12 M/UL (4.20-5.40) L Hemoglobin 9.0 G/DL (12.0-16.0) L Hematocrit 27.5 % (37.0-47.0) L Mean Corpuscular Volume 88 FL (80-99) Mean Corpuscular Hemoglobin 29.0 PG (27.0-31.0) Mean Corpuscular Hemoglobin Concent 32.9 G/DL (32.0-36.0) Red Cell Distribution Width 14.3 % (11.6-14.8) Platelet Count 188 K/UL (150-450) Mean Platelet Volume 5.5 FL (6.5-10.1) L Neutrophils (%) (Auto) 68.5 % (45.0-75.0) Lymphocytes (%) (Auto) 14.7 % (20.0-45.0) L Monocytes (%) (Auto) 8.8 % (1.0-10.0) Eosinophils (%) (Auto) 4.8 % (0.0-3.0) H Basophils (%) (Auto) 3.2 % (0.0-2.0) H Sodium Level 139 MMOL/L (136-145) Potassium Level 4.0 MMOL/L (3.5-5.1) Chloride Level 104 MMOL/L (98-107) Carbon Dioxide Level 29 MMOL/L (21-32) Anion Gap 6 mmol/L (5-15) Blood Urea Nitrogen 6 mg/dL (7-18) L Creatinine 0.4 MG/DL (0.55-1.30) L Estimat Glomerular Filtration Rate > 60 mL/min (>60) Glucose Level 103 MG/DL (74-106) Calcium Level 8.3 MG/DL (8.5-10.1) L POC Whole Blood Glucose 103 MG/DL (74-106) Plan Problems: (1) Hematuria (2) Rectal bleeding Assessment & Plan: 64-year-old female identified to have rectal bleeding on admission. GI aware surgery aware no active bleeding at this time hemoglobin noted. Transfuse PRBC as needed. Pending scope consideration. passed swallow no bleeding on diet may need peg as per GI cont diet urology input appreciated mcmanus being irrigated supplements added for wound care DAILY ESTIMATED NEEDS: Needs based on Obesity, cardiac/ 67.6kg abw 22-27 kcals/kg 8007-4297 total kcals 1-1.5 g protein/kg 68-101 g total protein 25-30 mL/kg 8079-8137 total fluid mLs NUTRITION DIAGNOSIS: * Swallowing difficulty R/T dysphagia, h/o CVA, clinical condition as evidenced by seen by CALENDER LET OFF OPERATOR w/ rec for pureed moist texture w/ thin liquids. 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 CURRENT DIET:CCHO MED, pureed moist w/ thin liquids PO DIET RECOMMENDATIONS: Liberalized REGULAR w/ poor PO (CCHO MED+LOW NA w/ PO intake >50%) ADDITIONAL RECOMMENDATIONS: * Per SNF: HT=64" PJ=514gnv (04/05/20) -> rec daily calibrated bedscale wt, monitor trend Possible wt loss of 68 lbs/29% in 13 months * W/ poor PO intake, add Glucerna TID w/ meals * Wound healing: Add MVI x 1, Vit C 500mg BID, ZnSO4 220mg QD x 10 days Woody (QD for now- increase to BID w/ good acceptance) added to tray * Monitor lytes, replete as needed (low k and mag) (3) Hemorrhagic shock (4) Acute CVA (cerebrovascular accident) (5) Septic shock (6) Anemia (7) Sepsis (8) Altered mental status (9) Atrial fibrillation with RVR (10) COVID-19 Assessment & Plan: ++ as per ID and pulm cxr noted (11) History of CVA (cerebrovascular accident) (12) Decubitus skin ulcer Assessment & Plan: Patient identified on admission to have a 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 apply therahoney to areas of slough. apply mositure barrier paste on the periwound. cover with optifoam dressing. change Q3D and PRN. Apply cavilon on both heels& malleoli. Cover each site with optifoam dressing. Change Q7D and PRN. DAILY ESTIMATED NEEDS: Needs based on Obesity, cardiac/ 67.6kg abw 22-27 kcals/kg 8154-9691 total kcals 1.25-1.5 g protein/kg 85-101 g total protein 25-30 mL/kg 1398-3544 total fluid mLs NUTRITION DIAGNOSIS: * Swallowing difficulty R/T dysphagia, h/o CVA, now s/p PEG placement. 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 CURRENT TF:Glucerna 1.2 @55 ENTERAL NUTRITION RECOMMENDATIONS: Glucerna 1.2 goal of 60ml/hr x24 hrs to provide 1440ml, 1728 kcal, 86g pro, 1159 ml free H2O Rec to Increase current TF to goal of 60ml/hr to meet 100% est needs Flush per MD/ HOB over 30 degrees ADDITIONAL RECOMMENDATIONS: * Per SNF: HT=64" XG=290hmi (04/05/20) -> rec daily calibrated bedscale wt, monitor trend Possible wt loss of 68 lbs/29% in 13 months * W/ poor PO intake, add Glucerna TID-now s/p PEG * Wound healing: Add MVI x 1, Vit C 500mg BID, ZnSO4 220mg QD x 10 days Woody BID * Monitor lytes, replete as needed Elian Ren Apr 28, 2020 16:04
--- NOTE | 2020-04-28 19:56 | NUR ---
HANDS OFF: REPORT GIVEN TO
--- NOTE | 2020-04-28 19:57 | NUR ---
NURSE NOTES: Received patient in bed. A&OX2. NC 3L on, no s/s of respiratory distress noted. IV site patent and intact. G-tube in place, running Glucerna 1.2 40cc/hr, 30cc residual noted, flushed, elevated HOB. Lowe draining well by gravity, light pinkish urine noted, irrigated. Right neck puncture site noted, no bleeding or swelling noted. Bed in lowest position. Call light within reach. Will continue to monitor.
[2020-04-28 20:00] VITALS: BP 101/60
--- NOTE | 2020-04-28 20:02 | Internal Med Progress Note ---
Subjective Date of Service: Apr 28, 2020 Physician Name KatherineTariq Attending Physician Dewayne Mendoza MD Current Medications Medications (Trade) Dose Ordered Sig/Jere Route PRN Reason Start Time Stop Time Status Last Admin Dose Admin Acetaminophen (Tylenol) 650 mg Q4H PRN ORAL fever/pain 3-6 04/08/20 19:00 05/08/20 18:59 04/25/20 00:45 Ascorbic Acid (Vitamin C) 500 mg TWICE A DAY ORAL 04/14/20 18:00 05/14/20 17:59 04/28/20 17:49 Chlorhexidine Gluconate (Geno-Hex 2%) 1 applic DAILY@2000 TOPIC 04/08/20 20:00 07/07/20 19:59 04/27/20 20:25 Dextrose (Dextrose 50%) 25 ml Q30M PRN IV Hypoglycemia 04/17/20 12:00 07/16/20 11:59 Dextrose (Dextrose 50%) 50 ml Q30M PRN IV Hypoglycemia 04/17/20 12:00 07/16/20 11:59 Insulin Aspart (NovoLOG) Q6H SUBQ 04/17/20 12:00 07/16/20 11:59 Metoclopramide HCl (Reglan) 10 mg Q6HR IVP 04/26/20 10:38 05/26/20 10:37 04/28/20 17:49 Multivitamins (Multivitamins) 1 tab DAILY ORAL 04/15/20 09:00 05/15/20 08:59 04/28/20 09:28 Ondansetron HCl (Zofran) 4 mg Q6H PRN IVP Nausea & Vomiting 04/08/20 19:00 05/08/20 18:59 04/25/20 18:04 Pantoprazole (Protonix) 40 mg DAILY IVP 04/24/20 09:00 05/24/20 08:59 04/28/20 09:28 Polyethylene Glycol (Miralax) 17 gm BEDTIME ORAL 04/09/20 21:00 05/09/20 20:59 04/27/20 20:25 Polyethylene Glycol (Miralax) 17 gm DAILYPRN PRN ORAL Constipation 04/08/20 19:00 05/08/20 18:59 Allergies: Coded Allergies: No Known Allergies (Unverified , 03/11/19) ROS Limited/Unobtainable: Yes Subjective 64 YO F with inoperable uterine cancer admitted with tachycardia. Now atrial fibrillation with rapid ventricular rate. Also COVID 19 positive. Cover for Int Med-DR Mendoza. New DVT RLE Objective Last Vital Signs Date Time Temp Pulse Resp B/P (MAP) Pulse Ox O2 Delivery O2 Flow Rate FiO2 04/28/20 16:00 98.2 106 20 118/66 (83) 96 04/28/20 09:00 Nasal Cannula 3.0 Laboratory Tests Test 04/28/20 06:11 04/28/20 11:54 White Blood Count 5.8 K/UL (4.8-10.8) Red Blood Count 3.12 M/UL (4.20-5.40) L Hemoglobin 9.0 G/DL (12.0-16.0) L Hematocrit 27.5 % (37.0-47.0) L Mean Corpuscular Volume 88 FL (80-99) Mean Corpuscular Hemoglobin 29.0 PG (27.0-31.0) Mean Corpuscular Hemoglobin Concent 32.9 G/DL (32.0-36.0) Red Cell Distribution Width 14.3 % (11.6-14.8) Platelet Count 188 K/UL (150-450) Mean Platelet Volume 5.5 FL (6.5-10.1) L Neutrophils (%) (Auto) 68.5 % (45.0-75.0) Lymphocytes (%) (Auto) 14.7 % (20.0-45.0) L Monocytes (%) (Auto) 8.8 % (1.0-10.0) Eosinophils (%) (Auto) 4.8 % (0.0-3.0) H Basophils (%) (Auto) 3.2 % (0.0-2.0) H Sodium Level 139 MMOL/L (136-145) Potassium Level 4.0 MMOL/L (3.5-5.1) Chloride Level 104 MMOL/L (98-107) Carbon Dioxide Level 29 MMOL/L (21-32) Anion Gap 6 mmol/L (5-15) Blood Urea Nitrogen 6 mg/dL (7-18) L Creatinine 0.4 MG/DL (0.55-1.30) L Estimat Glomerular Filtration Rate > 60 mL/min (>60) Glucose Level 103 MG/DL (74-106) Calcium Level 8.3 MG/DL (8.5-10.1) L POC Whole Blood Glucose 103 MG/DL (74-106) Intake and Output 04/27/20 04/28/20 19:00 07:00 Output Total 1200 ml 850 ml Balance -1200 ml -850 ml Output Urine Total 1200 ml 850 ml # Voids 1 Objective PHYSICAL EXAMINATION: GENERAL: The patient awake, responsive, however altered and confused. The patient appears to be paler and chronically-ill appearing. HEAD AND NECK: Pupils are equal and reactive to light. Extraocular movements are intact. Neck was supple. No JVD. LUNGS: Bilateral air entry. Decreased air in the bases. HEART: S1, S2. Tachycardic, irregular. No murmur or gallop was appreciated. ABDOMEN: Soft, nondistended. Tenderness on the lower abdominal area. Mildly obese. EXTREMITIES: No cyanosis, clubbing, or edema. GENITOURINARY: The patient noted to have Lowe catheter with dark red urine collection in a Lowe catheter. NEUROLOGIC: Cranial nerves II through XII grossly intact. The patient moving all extremities equally. Sensory is intact. Gait was not able to assess due to the patient's status. RECTAL: Refused and deferred. PSYCHIATRIC: Mood and affect, unable to obtain due to the patient's status. Assessment/Plan Assessment/Plan ASSESSMENT: 1. COVID-19 pneumonia. 2. Altered mental status, most likely secondary to toxic metabolic encephalopathy. 3. Atrial fibrillation with rapid ventricular rate. 4. Anemia most likely secondary to acute blood loss. 5. Sepsis secondary to urinary tract infection as well as pneumonia. 6. Vaginal bleeding. 7. UTI=VRE 8. History of diabetes type 2. 9. Inoperable endometrial adenocarcinoma, status post brachytherapy. 10. Hypertension. 11. History of lacunar infarction. 12. Deep venous thrombisis Right leg 13. dysphagia PLAN: 1. Telemetry 2. Dr. Buitrago=Pulmonary/Critical Care 3. Dr. Wale Wu = Cardiology. 4. antibiotic=linezolid; S/P vancomycin and cefepime. 5. Admit to [facility]- room. 6. Code status =Full Code. 7. DVT - continue lovenox 8. S/P transfusion 3 units of packed RBC. 9. ID=Dr Gautam 10. Continue decadron 11. S/P IVC filter placement 04/20/20 12. S/P PEG placement 04/19/20 13. Discharge planning Tariq Murphy MD Apr 28, 2020 20:02
[2020-04-28] MEDS: Miralax 17gm pkt ORAL SCH (21:12)
[2020-04-28] MEDS: Dyna-Hex 2% Top Sol 2oz TOPIC SCH (21:12)
[2020-04-29] VITALS: BP 102/54
[2020-04-29] MEDS: Metoclopramide 10mg/2ml Inj IVP SCH ×4 (00:23→18:22)
[2020-04-29 04:00] VITALS: BP 113/67
[2020-04-29 04:23] LABS: BASOPHILS % (AUTO) 1.1 % (0.0-2.0); EOSINOPHILS % (AUTO) 4.3 % (0.0-3.0); HEMATOCRIT 24.9 % (37.0-47.0); HEMOGLOBIN 8.3 G/DL (12.0-16.0); LYMPHOCYTES % (AUTO) 14.2 % (20.0-45.0); MEAN CORPUSCULAR VOLUME 87 FL (80-99); NEUTROPHILS % (AUTO) 69.4 % (45.0-75.0); PLATELET COUNT 194 K/UL (150-450); RED BLOOD COUNT 2.86 M/UL (4.20-5.40); RED CELL DISTRIBUTION WIDTH 14.4 % (11.6-14.8); WHITE BLOOD COUNT 5.7 K/UL (4.8-10.8)
[2020-04-29 04:56] LABS: ANION GAP 3 mmol/L (5-15); BLOOD UREA NITROGEN 8 mg/dL (7-18); CALCIUM 8.2 MG/DL (8.5-10.1); CARBON DIOXIDE 32 MMOL/L (21-32); CHLORIDE 105 MMOL/L (98-107); CREATININE 0.3 MG/DL (0.55-1.30); SODIUM 139 MMOL/L (136-145)
[2020-04-29] MEDS: NovoLOG Insulin Flexpen SUBQ SCH ×4 (05:10→18:00)
--- NOTE | 2020-04-29 07:45 | NUR ---
NURSE HAND-OFF: Important Events on Shift: Hand irrigated as needed. Changed pinkish color to payam. Patient Status: Diet: Tube feeding Pending Orders: Pending Results/Labs: Pending MD notification: Latest Vital Signs: Temperature 98.2 , Pulse 114 , B/P 113 /67 , Respiratory Rate 25 , O2 SAT 100 , Nasal Cannula, O2 Flow Rate 3.0 . Vital Sign Comment: Latest Ortega Fall Score: 55 Fall Risk: High Risk Safety Measures: Call light Within Reach, Bed Alarm Zone 1, Side Rails Side Rails x2, Bed position Low and Locked. Fall Precautions: Yellow Socks Yellow Gown Door Sign Patient Fall Education Report given to Nadiya BOND .
[2020-04-29 08:00] VITALS: BP 110/65
--- NOTE | 2020-04-29 08:12 | NUR ---
NURSE NOTES: Report received from VARUN Coughlin. Patient observed to be asleep with HOB elevated, currently on 3L via NC no s/sx of SOB/Distress, no s/sx of pain or discomfort. On contact and droplet isolation d/t COVID. Patient on GTube feeding tolerating well. IV site located on RAC gauge 22. Asymptomatic, inplace and intact. Bed placed on lowest and locked, call light placed within reach and will continue to monitor.
[2020-04-29] MEDS: Ascorbic Acid 500mg tab ORAL SCH ×2 (09:22→18:22)
[2020-04-29] MEDS: Pantoprazole Inj IVP SCH (09:22)
--- NOTE | 2020-04-29 10:49 | Surgery Progress Note ---
Surgery Progress Note Subjective Additional Comments afebrile, HD stable improving tolerating diet Objective Last 24 Hour Vital Signs Date Time Temp Pulse Resp B/P (MAP) Pulse Ox O2 Delivery O2 Flow Rate FiO2 04/29/20 04:00 98.2 114 25 113/67 (82) 100 04/29/20 00:00 99.9 111 25 102/54 (70) 97 04/28/20 21:00 Nasal Cannula 3.0 04/28/20 20:00 97.7 112 24 101/60 (74) 94 04/28/20 16:00 98.2 106 20 118/66 (83) 96 04/28/20 12:00 98.6 102 20 118/74 (89) 97 I&O Intake and Output 04/28/20 04/29/20 19:00 07:00 Intake Total 40 ml 695 ml Output Total 600 ml 300 ml Balance -560 ml 395 ml Free Water 150 ml Tube Feeding 40 ml 545 ml Output Urine Total 600 ml 300 ml # Voids 2 Dressing: other Wound: other Cardiovascular: RSR Respiratory: decreased breath sounds Abdomen: soft, non-tender, present bowel sounds Extremities: no tenderness, no cyanosis Laboratory Tests Test 04/28/20 11:54 04/29/20 00:18 04/29/20 04:12 04/29/20 05:04 POC Whole Blood Glucose 103 MG/DL (74-106) 97 MG/DL (74-106) 105 MG/DL (74-106) White Blood Count 5.7 K/UL (4.8-10.8) Red Blood Count 2.86 M/UL (4.20-5.40) L Hemoglobin 8.3 G/DL (12.0-16.0) L Hematocrit 24.9 % (37.0-47.0) L Mean Corpuscular Volume 87 FL (80-99) Mean Corpuscular Hemoglobin 28.9 PG (27.0-31.0) Mean Corpuscular Hemoglobin Concent 33.2 G/DL (32.0-36.0) Red Cell Distribution Width 14.4 % (11.6-14.8) Platelet Count 194 K/UL (150-450) Mean Platelet Volume 5.0 FL (6.5-10.1) L Neutrophils (%) (Auto) 69.4 % (45.0-75.0) Lymphocytes (%) (Auto) 14.2 % (20.0-45.0) L Monocytes (%) (Auto) 11.0 % (1.0-10.0) H Eosinophils (%) (Auto) 4.3 % (0.0-3.0) H Basophils (%) (Auto) 1.1 % (0.0-2.0) Sodium Level 139 MMOL/L (136-145) Potassium Level 4.0 MMOL/L (3.5-5.1) Chloride Level 105 MMOL/L (98-107) Carbon Dioxide Level 32 MMOL/L (21-32) Anion Gap 3 mmol/L (5-15) L Blood Urea Nitrogen 8 mg/dL (7-18) Creatinine 0.3 MG/DL (0.55-1.30) L Estimat Glomerular Filtration Rate > 60 mL/min (>60) Glucose Level 109 MG/DL (74-106) H Calcium Level 8.2 MG/DL (8.5-10.1) L Plan Problems: (1) Hematuria (2) Rectal bleeding Assessment & Plan: 64-year-old female identified to have rectal bleeding on admission. GI aware surgery aware no active bleeding at this time hemoglobin noted. Transfuse PRBC as needed. Pending scope consideration. passed swallow no bleeding on diet may need peg as per GI cont diet urology input appreciated mcmanus being irrigated supplements added for wound care DAILY ESTIMATED NEEDS: Needs based on Obesity, cardiac/ 67.6kg abw 22-27 kcals/kg 7672-4093 total kcals 1-1.5 g protein/kg 68-101 g total protein 25-30 mL/kg 2047-4295 total fluid mLs NUTRITION DIAGNOSIS: * Swallowing difficulty R/T dysphagia, h/o CVA, clinical condition as evidenced by seen by TELEPHONE INFORMATION CLERK w/ rec for pureed moist texture w/ thin liquids. 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 CURRENT DIET:CCHO MED, pureed moist w/ thin liquids PO DIET RECOMMENDATIONS: Liberalized REGULAR w/ poor PO ([facility]HO MED+LOW NA w/ PO intake >50%) ADDITIONAL RECOMMENDATIONS: * Per SNF: HT=64" LK=025kll (04/05/20) -> rec daily calibrated bedscale wt, monitor trend Possible wt loss of 68 lbs/29% in 13 months * W/ poor PO intake, add Glucerna TID w/ meals * Wound healing: Add MVI x 1, Vit C 500mg BID, ZnSO4 220mg QD x 10 days Woody (QD for now- increase to BID w/ good acceptance) added to tray * Monitor lytes, replete as needed (low k and mag) (3) Hemorrhagic shock (4) Acute CVA (cerebrovascular accident) (5) Septic shock (6) Anemia (7) Sepsis (8) Altered mental status (9) Atrial fibrillation with RVR (10) COVID-19 Assessment & Plan: ++ as per ID and pulm cxr noted (11) History of CVA (cerebrovascular accident) (12) Decubitus skin ulcer Assessment & Plan: Patient identified on admission to have a 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 apply therahoney to areas of slough. apply mositure barrier paste on the periwound. cover with optifoam dressing. change Q3D and PRN. Apply cavilon on both heels& malleoli. Cover each site with optifoam dressing. Change Q7D and PRN. DAILY ESTIMATED NEEDS: Needs based on Obesity, cardiac/ 67.6kg abw 22-27 kcals/kg 1516-8507 total kcals 1.25-1.5 g protein/kg 85-101 g total protein 25-30 mL/kg 6421-9370 total fluid mLs NUTRITION DIAGNOSIS: * Swallowing difficulty R/T dysphagia, h/o CVA, now s/p PEG placement. 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 CURRENT TF:Glucerna 1.2 @55 ENTERAL NUTRITION RECOMMENDATIONS: Glucerna 1.2 goal of 60ml/hr x24 hrs to provide 1440ml, 1728 kcal, 86g pro, 1159 ml free H2O Rec to Increase current TF to goal of 60ml/hr to meet 100% est needs Flush per MD/ HOB over 30 degrees ADDITIONAL RECOMMENDATIONS: * Per SNF: HT=64" KW=220ino (04/05/20) -> rec daily calibrated bedscale wt, monitor trend Possible wt loss of 68 lbs/29% in 13 months * W/ poor PO intake, add Glucerna TID-now s/p PEG * Wound healing: Add MVI x 1, Vit C 500mg BID, ZnSO4 220mg QD x 10 days Woody BID * Monitor lytes, replete as needed Elian Ren Apr 29, 2020 10:49
--- NOTE | 2020-04-29 10:58 | General Progress Note ---
Subjective ROS Limited/Unobtainable: No Allergies: Coded Allergies: No Known Allergies (Unverified , 03/11/19) Objective Last 24 Hour Vital Signs Date Time Temp Pulse Resp B/P (MAP) Pulse Ox O2 Delivery O2 Flow Rate FiO2 04/29/20 09:00 Nasal Cannula 3.0 04/29/20 08:00 98.5 112 22 110/65 (80) 100 04/29/20 04:00 98.2 114 25 113/67 (82) 100 04/29/20 00:00 99.9 111 25 102/54 (70) 97 04/28/20 21:00 Nasal Cannula 3.0 04/28/20 20:00 97.7 112 24 101/60 (74) 94 04/28/20 16:00 98.2 106 20 118/66 (83) 96 04/28/20 12:00 98.6 102 20 118/74 (89) 97 Intake and Output 04/28/20 04/29/20 19:00 07:00 Intake Total 40 ml 695 ml Output Total 600 ml 300 ml Balance -560 ml 395 ml Free Water 150 ml Tube Feeding 40 ml 545 ml Output Urine Total 600 ml 300 ml # Voids 2 Laboratory Tests 04/28/20 11:54: POC Whole Blood Glucose 103 04/29/20 00:18: POC Whole Blood Glucose 97 04/29/20 04:12: White Blood Count 5.7, Red Blood Count 2.86L, Hemoglobin 8.3L, Hematocrit 24.9L, Mean Corpuscular Volume 87, Mean Corpuscular Hemoglobin 28.9, Mean Corpuscular Hemoglobin Concent 33.2, Red Cell Distribution Width 14.4, Platelet Count 194, Mean Platelet Volume 5.0L, Neutrophils (%) (Auto) 69.4, Lymphocytes (%) (Auto) 14.2L, Monocytes (%) (Auto) 11.0H, Eosinophils (%) (Auto) 4.3H, Basophils (%) (Auto) 1.1, Sodium Level 139, Potassium Level 4.0, Chloride Level 105, Carbon Dioxide Level 32, Anion Gap 3L, Blood Urea Nitrogen 8, Creatinine 0.3L, Estimat Glomerular Filtration Rate > 60, Glucose Level 109H, Calcium Level 8.2L 04/29/20 05:04: POC Whole Blood Glucose 105 Height (Feet): 5 Height (Inches): 5.00 Weight (Pounds): 201 General Appearance: no apparent distress EENT: normal ENT inspection Neck: supple Cardiovascular: normal rate Respiratory/Chest: decreased breath sounds Abdomen: normal bowel sounds, non tender, soft Extremities: non-tender Assessment/Plan Status: stable, unchanged Assessment/Plan: 1. History of hypertension. 2. Diabetes. 3. CVA. 4. UTI. 5. Colitis. 6. Endometrial cancer. 7. A.Fib no recurrent gib s/p PEG GTF monitor for residuals>>>> reglan 10 mg Q6 given elevated residuals s/p one unit PRBC 10/5 hematuria care per urology fu cardiology recs Nima Park MD Apr 29, 2020 10:58
--- NOTE | 2020-04-29 11:13 | NUR ---
RD ASSESSMENT & RECOMMENDATIONS SEE CARE ACTIVITY FOR COMPLETE ASSESSMENT DAILY ESTIMATED NEEDS: Needs based on Obesity, cardiac/ 67.6kg abw 22-27 kcals/kg 8818-5722 total kcals 1.25-1.5 g protein/kg 85-101 g total protein 25-30 mL/kg 2388-3922 total fluid mLs NUTRITION DIAGNOSIS: * Swallowing difficulty R/T dysphagia, h/o CVA, now s/p PEG placement. 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 CURRENT TF:Glucerna 1.2 @55 ENTERAL NUTRITION RECOMMENDATIONS: Glucerna 1.2 goal of 60ml/hr x24 hrs to provide 1440ml, 1728 kcal, 86g pro, 1159 ml free H2O - When tolerating TF @55ml/hr, rec to increase current TF to goal of 60ml/hr to meet 100% est needs - Flush per MD/ HOB over 30 degrees ADDITIONAL RECOMMENDATIONS: * Per SNF: HT=64" CO=710fmb (04/05/20) -> Extended adm of 21 days, rec to recalibrate bed scale for accurate CBW Possible wt loss of 68 lbs/29% in 13 months * W/ poor PO intake, add Glucerna TID-----> now s/p PEG * Wound healing- Con't MVI x 1, Vit C 500mg BID, ZnSO4 220mg QD x 10 days add Woody BID * Monitor lytes, replete as needed
--- NOTE | 2020-04-29 11:29 | Nephrology Progress Note ---
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 Renal parameters stable. April 28: Today's labs reviewed. Stable from renal standpoint of view. April 27: Today's labs reviewed. CHEM panel reasonable. Stable from renal standpoint of view. Continue per consultants. April 26: Today's labs reviewed. CBC okay. Hemoglobin 8.7. No chemistry panel done today. Renal parameters stable. Continue per consultants. April 25: Today's labs pending. Renal parameters stable. Continue per consultants. April 24: Labs reviewed. Renal parameters stable. Patient full code. Co ntinue per consultants. April 23: Labs reviewed. Renal parameters stable. Continue per consultants. April 22: Status quo. Labs reviewed. Renal parameters stable. Continue per consultants. April 21: Status quo. Renal parameters stable. Continue per consultants. April 20: Lab reviewed. Renal parameters stable. April 19: Labs reviewed. Electrolytes and renal parameters stable. April 18: Labs reviewed. Electrolytes and renal parameters stable. April 17: Lab reviewed. Stable from renal standpoint of view April 16: Labs reviewed. Remains stable from renal standpoint of view. Continue per consultants. April 15: Labs reviewed. Electrolyte abnormalities addressed. Continue as is. April 14: Labs reviewed. Low phosphorus and low magnesium corrected. Continue per consultants. Blood pressure remains stable. April 13: Electrolytes within normal limit. Renal parameters within normal limit. Continue per consultants. April 12: Electrolyte abnormalities noted and addressed. Continue per consultants Magnesium IV supplement as needed Potassium IV supplement as needed Phosphorus IV supplement as needed Monitor electrolytes Monitor hemoglobin hematocrit IV Protonix Adjust IV fluid Antibiotics per consultants Subjective ROS Limited/Unobtainable: No Constitutional: Reports: malaise, weakness Objective Objective Last 24 Hour Vital Signs Date Time Temp Pulse Resp B/P (MAP) Pulse Ox O2 Delivery O2 Flow Rate FiO2 04/29/20 09:00 Nasal Cannula 3.0 04/29/20 08:00 98.5 112 22 110/65 (80) 100 04/29/20 04:00 98.2 114 25 113/67 (82) 100 04/29/20 00:00 99.9 111 25 102/54 (70) 97 04/28/20 21:00 Nasal Cannula 3.0 04/28/20 20:00 97.7 112 24 101/60 (74) 94 04/28/20 16:00 98.2 106 20 118/66 (83) 96 04/28/20 12:00 98.6 102 20 118/74 (89) 97 Intake and Output 04/28/20 04/29/20 19:00 07:00 Intake Total 40 ml 695 ml Output Total 600 ml 300 ml Balance -560 ml 395 ml Free Water 150 ml Tube Feeding 40 ml 545 ml Output Urine Total 600 ml 300 ml # Voids 2 Laboratory Tests 04/28/20 11:54: POC Whole Blood Glucose 103 04/29/20 00:18: POC Whole Blood Glucose 97 04/29/20 04:12: White Blood Count 5.7, Red Blood Count 2.86L, Hemoglobin 8.3L, Hematocrit 24.9L, Mean Corpuscular Volume 87, Mean Corpuscular Hemoglobin 28.9, Mean Corpuscular Hemoglobin Concent 33.2, Red Cell Distribution Width 14.4, Platelet Count 194, Mean Platelet Volume 5.0L, Neutrophils (%) (Auto) 69.4, Lymphocytes (%) (Auto) 14.2L, Monocytes (%) (Auto) 11.0H, Eosinophils (%) (Auto) 4.3H, Basophils (%) (Auto) 1.1, Sodium Level 139, Potassium Level 4.0, Chloride Level 105, Carbon Dioxide Level 32, Anion Gap 3L, Blood Urea Nitrogen 8, Creatinine 0.3L, Estimat Glomerular Filtration Rate > 60, Glucose Level 109H, Calcium Level 8.2L 04/29/20 05:04: POC Whole Blood Glucose 105 Height (Feet): 5 Height (Inches): 5.00 Weight (Pounds): 201 General Appearance: no apparent distress Cardiovascular: normal rate Respiratory/Chest: lungs clear Abdomen: soft Objective No change Steven Edwards MD Apr 29, 2020 11:29
--- NOTE | 2020-04-29 11:48 | Pulmonology Progress Note ---
Subjective ROS Limited/Unobtainable: No Constitutional: Reports: no symptoms, fatigue HEENT: Repors: no symptoms Allergies: Coded Allergies: No Known Allergies (Unverified , 03/11/19) Objective Last 24 Hour Vital Signs Date Time Temp Pulse Resp B/P (MAP) Pulse Ox O2 Delivery O2 Flow Rate FiO2 04/29/20 09:00 Nasal Cannula 3.0 04/29/20 08:00 98.5 112 22 110/65 (80) 100 04/29/20 04:00 98.2 114 25 113/67 (82) 100 04/29/20 00:00 99.9 111 25 102/54 (70) 97 04/28/20 21:00 Nasal Cannula 3.0 04/28/20 20:00 97.7 112 24 101/60 (74) 94 04/28/20 16:00 98.2 106 20 118/66 (83) 96 04/28/20 12:00 98.6 102 20 118/74 (89) 97 Intake and Output 04/28/20 04/29/20 19:00 07:00 Intake Total 40 ml 695 ml Output Total 600 ml 300 ml Balance -560 ml 395 ml Free Water 150 ml Tube Feeding 40 ml 545 ml Output Urine Total 600 ml 300 ml # Voids 2 General Appearance: WD/WN HEENT: normocephalic, atraumatic Respiratory: chest wall non-tender, lungs clear Breasts: no masses Cardiovascular: normal peripheral pulses Abdomen: normal bowel sounds, soft, non tender Extremities: no cyanosis Neurologic: risk and insurance consultant II-XII 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, alert Lymphatic: no neck adenopathy Laboratory Tests 04/28/20 11:54: POC Whole Blood Glucose 103 04/29/20 00:18: POC Whole Blood Glucose 97 04/29/20 04:12: White Blood Count 5.7, Red Blood Count 2.86L, Hemoglobin 8.3L, Hematocrit 24.9L, Mean Corpuscular Volume 87, Mean Corpuscular Hemoglobin 28.9, Mean Corpuscular Hemoglobin Concent 33.2, Red Cell Distribution Width 14.4, Platelet Count 194, Mean Platelet Volume 5.0L, Neutrophils (%) (Auto) 69.4, Lymphocytes (%) (Auto) 14.2L, Monocytes (%) (Auto) 11.0H, Eosinophils (%) (Auto) 4.3H, Basophils (%) (Auto) 1.1, Sodium Level 139, Potassium Level 4.0, Chloride Level 105, Carbon Dioxide Level 32, Anion Gap 3L, Blood Urea Nitrogen 8, Creatinine 0.3L, Estimat Glomerular Filtration Rate > 60, Glucose Level 109H, Calcium Level 8.2L 04/29/20 05:04: POC Whole Blood Glucose 105 Current Medications Medications (Trade) Dose Ordered Sig/Jere Route PRN Reason Start Time Stop Time Status Last Admin Dose Admin Acetaminophen (Tylenol) 650 mg Q4H PRN ORAL fever/pain 3-6 04/08/20 19:00 05/08/20 18:59 04/25/20 00:45 Ascorbic Acid (Vitamin C) 500 mg TWICE A DAY ORAL 04/14/20 18:00 05/14/20 17:59 04/29/20 09:22 Chlorhexidine Gluconate (Geno-Hex 2%) 1 applic DAILY@2000 TOPIC 04/08/20 20:00 07/07/20 19:59 04/28/20 21:12 Dextrose (Dextrose 50%) 25 ml Q30M PRN IV Hypoglycemia 04/17/20 12:00 07/16/20 11:59 Dextrose (Dextrose 50%) 50 ml Q30M PRN IV Hypoglycemia 04/17/20 12:00 07/16/20 11:59 Insulin Aspart (NovoLOG) Q6H SUBQ 04/17/20 12:00 07/16/20 11:59 Metoclopramide HCl (Reglan) 10 mg Q6HR IVP 04/26/20 10:38 05/26/20 10:37 04/29/20 05:10 Multivitamins (Multivitamins) 1 tab DAILY ORAL 04/15/20 09:00 05/15/20 08:59 04/29/20 09:22 Ondansetron HCl (Zofran) 4 mg Q6H PRN IVP Nausea & Vomiting 04/08/20 19:00 05/08/20 18:59 04/25/20 18:04 Pantoprazole (Protonix) 40 mg DAILY IVP 04/24/20 09:00 05/24/20 08:59 04/29/20 09:22 Polyethylene Glycol (Miralax) 17 gm BEDTIME ORAL 04/09/20 21:00 05/09/20 20:59 10/8/20 21:12 Polyethylene Glycol (Miralax) 17 gm DAILYPRN PRN ORAL Constipation 04/08/20 19:00 05/08/20 18:59 Assessment/Plan Problems: (1) Hemorrhagic shock (2) Sepsis (3) Bacteremia (4) History of CVA (cerebrovascular accident) (5) Rectal bleeding (6) Hematuria Assessment/Plan no new complains urine is clear now looks comfortable somnolent ivc filter in place f/u ID recommendations check electrolytes Marina Buitrago MD Apr 29, 2020 11:48
[2020-04-29 12:00] VITALS: BP 106/55
--- NOTE | 2020-04-29 12:11 | Urology Progress Note ---
Assessment/Plan Status: stable, unchanged Assessment/Plan: 1. Gross hematuria. 2. UTI. 3. Proteinuria. 4. Urinary retention. 5. Probable neurogenic bladder. 6. Probable cystitis. 7. Possible adrenal adenoma. 8. Acute kidney injury history, which is improved. 9. Sepsis history. monitor clinically mcmanus hand irrigated and do PRN will consider larger mcmanus or CBI if needed s/p abx off ASA and lovenox IVC filter placed monitor h/h renal fxn stable cysto at some point electively Subjective Allergies: Coded Allergies: No Known Allergies (Unverified , 03/11/19) Subjective all noted nurses hand irrigated mcmanus Objective Last 24 Hour Vital Signs Date Time Temp Pulse Resp B/P (MAP) Pulse Ox O2 Delivery O2 Flow Rate FiO2 04/29/20 09:00 Nasal Cannula 3.0 04/29/20 08:00 98.5 112 22 110/65 (80) 100 04/29/20 04:00 98.2 114 25 113/67 (82) 100 04/29/20 00:00 99.9 111 25 102/54 (70) 97 04/28/20 21:00 Nasal Cannula 3.0 04/28/20 20:00 97.7 112 24 101/60 (74) 94 04/28/20 16:00 98.2 106 20 118/66 (83) 96 Intake and Output 04/28/20 04/29/20 19:00 07:00 Intake Total 40 ml 695 ml Output Total 600 ml 300 ml Balance -560 ml 395 ml Free Water 150 ml Tube Feeding 40 ml 545 ml Output Urine Total 600 ml 300 ml # Voids 2 Microbiology Date/Time Source Procedure Growth Status 04/20/20 12:50 Nasopharynx SARS-CoV-2 RdRp Gene Assay - Final Complete 04/12/20 19:30 Blood Blood Culture - Final NO GROWTH AFTER 5 DAYS Complete 04/09/20 08:00 Urine,Clean Catch Urine Culture - Final Enterococcus Faecium - Vre Complete 04/08/20 15:55 Rectum VRE Culture - Final Enterococcus Faecium - Vre Complete Current Medications Medications (Trade) Dose Ordered Sig/Jere Route PRN Reason Start Time Stop Time Status Last Admin Dose Admin Acetaminophen (Tylenol) 650 mg Q4H PRN ORAL fever/pain 3-6 04/08/20 19:00 05/08/20 18:59 105/20 00:45 Ascorbic Acid (Vitamin C) 500 mg TWICE A DAY ORAL 04/14/20 18:00 05/14/20 17:59 04/29/20 09:22 Chlorhexidine Gluconate (Geno-Hex 2%) 1 applic DAILY@2000 TOPIC 04/08/20 20:00 07/07/20 19:59 04/28/20 21:12 Dextrose (Dextrose 50%) 25 ml Q30M PRN IV Hypoglycemia 04/17/20 12:00 07/16/20 11:59 Dextrose (Dextrose 50%) 50 ml Q30M PRN IV Hypoglycemia 04/17/20 12:00 07/16/20 11:59 Insulin Aspart (NovoLOG) Q6H SUBQ 04/17/20 12:00 07/16/20 11:59 Metoclopramide HCl (Reglan) 10 mg Q6HR IVP 04/26/20 10:38 05/26/20 10:37 04/29/20 05:10 Multivitamins (Multivitamins) 1 tab DAILY ORAL 04/15/20 09:00 05/15/20 08:59 04/29/20 09:22 Ondansetron HCl (Zofran) 4 mg Q6H PRN IVP Nausea & Vomiting 04/08/20 19:00 05/08/20 18:59 04/25/20 18:04 Pantoprazole (Protonix) 40 mg DAILY IVP 04/24/20 09:00 05/24/20 08:59 04/29/20 09:22 Polyethylene Glycol (Miralax) 17 gm BEDTIME ORAL 04/09/20 21:00 05/09/20 20:59 04/28/20 21:12 Polyethylene Glycol (Miralax) 17 gm DAILYPRN PRN ORAL Constipation 04/08/20 19:00 05/08/20 18:59 Laboratory Tests 04/29/20 00:18: POC Whole Blood Glucose 97 04/29/20 04:12: White Blood Count 5.7, Red Blood Count 2.86L, Hemoglobin 8.3L, Hematocrit 24.9L, Mean Corpuscular Volume 87, Mean Corpuscular Hemoglobin 28.9, Mean Corpuscular Hemoglobin Concent 33.2, Red Cell Distribution Width 14.4, Platelet Count 194, Mean Platelet Volume 5.0L, Neutrophils (%) (Auto) 69.4, Lymphocytes (%) (Auto) 14.2L, Monocytes (%) (Auto) 11.0H, Eosinophils (%) (Auto) 4.3H, Basophils (%) (Auto) 1.1, Sodium Level 139, Potassium Level 4.0, Chloride Level 105, Carbon Dioxide Level 32, Anion Gap 3L, Blood Urea Nitrogen 8, Creatinine 0.3L, Estimat Glomerular Filtration Rate > 60, Glucose Level 109H, Calcium Level 8.2L 04/29/20 05:04: POC Whole Blood Glucose 105 Height (Feet): 5 Height (Inches): 5.00 Weight (Pounds): 201 Objective exam stable mcmanus indwelling urine blood-tinged/payam, clearer LE duplex (04/19) (+) DVT Bong Valerio MD Apr 29, 2020 12:11
--- NOTE | 2020-04-29 14:50 | NUR ---
*-*DISCHARGE PLANNING*-* PATIENT HAS BEEN ACCEPTED BACK TO: [facility]: ROOM# 31. SKILLED
--- NOTE | 2020-04-29 14:53 | NUR ---
*-*DISCHARGE PLANNED*-* PATIENT HAS BEEN ACCEPTED AND WILL BE DISCHARGE BACK TO: [facility]: FOR NURSE TO NURSE REPORT ROOM# 31. SKILLED [facility] SET FOR 5PM S/W [facility] [id number]. S/W PATIENTS SISTER, JOSE FLOWER, WHO IS IN AGREEMENT WITH DISCHARGE PLAN.
[2020-04-29] MEDS ORDERED: METOCLOPRAM5 MG/1 M1 IVP (14:54)
[2020-04-29] MEDS ORDERED: NOVOLOG100 UNITS1 SUBQ (14:54)
[2020-04-29] MEDS ORDERED: ASCORBIC ACID500 M4 ORAL (14:54)
--- NOTE | 2020-04-29 15:09 | NUR ---
P.T Weekly Progress Notes: Pt seen this past week of P.T sessions. Pt continue to demonstrate slow progress in therapy. Pt continue to be limited by generalized weakness and poor activity tolerance. Vitals had been stable during each tx sessions: O2 SAT 95-96% at 2 l/min. Pt remains MOD-MAX A X 1 in bed mobilities depending on endurance/tolerance level. Pt able to sit at the [address]. time of 12 mins. with MIN A or pt holding on to the bed rails. Pt still too weak to stand and transfer OOB at this time. Will continue with POC with progression of activities. Recommend SNF for further rehab intervention.
--- NOTE | 2020-04-29 15:59 | Internal Med Progress Note ---
Subjective Physician Name Dewayne Mendoza Attending Physician Dewayne Mendoza MD Current Medications Medications (Trade) Dose Ordered Sig/Jere Route PRN Reason Start Time Stop Time Status Last Admin Dose Admin Acetaminophen (Tylenol) 650 mg Q4H PRN ORAL fever/pain 3-6 04/08/20 19:00 05/08/20 18:59 04/25/20 00:45 Ascorbic Acid (Vitamin C) 500 mg TWICE A DAY ORAL 04/14/20 18:00 05/14/20 17:59 04/29/20 09:22 Chlorhexidine Gluconate (Geno-Hex 2%) 1 applic DAILY@2000 TOPIC 04/08/20 20:00 07/07/20 19:59 04/28/20 21:12 Dextrose (Dextrose 50%) 25 ml Q30M PRN IV Hypoglycemia 04/17/20 12:00 07/16/20 11:59 Dextrose (Dextrose 50%) 50 ml Q30M PRN IV Hypoglycemia 04/17/20 12:00 07/16/20 11:59 Insulin Aspart (NovoLOG) Q6H SUBQ 04/17/20 12:00 07/16/20 11:59 Metoclopramide HCl (Reglan) 10 mg Q6HR IVP 04/26/20 10:38 05/26/20 10:37 04/29/20 12:12 Multivitamins (Multivitamins) 1 tab DAILY ORAL 04/15/20 09:00 05/15/20 08:59 04/29/20 09:22 Ondansetron HCl (Zofran) 4 mg Q6H PRN IVP Nausea & Vomiting 04/08/20 19:00 05/08/20 18:59 04/25/20 18:04 Pantoprazole (Protonix) 40 mg DAILY IVP 04/24/20 09:00 05/24/20 08:59 04/29/20 09:22 Polyethylene Glycol (Miralax) 17 gm BEDTIME ORAL 04/09/20 21:00 05/09/20 20:59 04/28/20 21:12 Polyethylene Glycol (Miralax) 17 gm DAILYPRN PRN ORAL Constipation 04/08/20 19:00 05/08/20 18:59 Allergies: Coded Allergies: No Known Allergies (Unverified , 03/11/19) Subjective awake, responsive, talking, feeling good. Objective Last Vital Signs Date Time Temp Pulse Resp B/P (MAP) Pulse Ox O2 Delivery O2 Flow Rate FiO2 04/29/20 12:00 98.9 109 21 106/55 (72) 97 04/29/20 09:00 Nasal Cannula 3.0 Laboratory Tests Test 04/29/20 00:18 04/29/20 04:12 04/29/20 05:04 POC Whole Blood Glucose 97 MG/DL (74-106) 105 MG/DL (74-106) White Blood Count 5.7 K/UL (4.8-10.8) Red Blood Count 2.86 M/UL (4.20-5.40) L Hemoglobin 8.3 G/DL (12.0-16.0) L Hematocrit 24.9 % (37.0-47.0) L Mean Corpuscular Volume 87 FL (80-99) Mean Corpuscular Hemoglobin 28.9 PG (27.0-31.0) Mean Corpuscular Hemoglobin Concent 33.2 G/DL (32.0-36.0) Red Cell Distribution Width 14.4 % (11.6-14.8) Platelet Count 194 K/UL (150-450) Mean Platelet Volume 5.0 FL (6.5-10.1) L Neutrophils (%) (Auto) 69.4 % (45.0-75.0) Lymphocytes (%) (Auto) 14.2 % (20.0-45.0) L Monocytes (%) (Auto) 11.0 % (1.0-10.0) H Eosinophils (%) (Auto) 4.3 % (0.0-3.0) H Basophils (%) (Auto) 1.1 % (0.0-2.0) Sodium Level 139 MMOL/L (136-145) Potassium Level 4.0 MMOL/L (3.5-5.1) Chloride Level 105 MMOL/L (98-107) Carbon Dioxide Level 32 MMOL/L (21-32) Anion Gap 3 mmol/L (5-15) L Blood Urea Nitrogen 8 mg/dL (7-18) Creatinine 0.3 MG/DL (0.55-1.30) L Estimat Glomerular Filtration Rate > 60 mL/min (>60) Glucose Level 109 MG/DL (74-106) H Calcium Level 8.2 MG/DL (8.5-10.1) L Intake and Output 0 04/28/20 04/29/20 19:00 07:00 Intake Total 40 ml 695 ml Output Total 600 ml 300 ml Balance -560 ml 395 ml Free Water 150 ml Tube Feeding 40 ml 545 ml Output Urine Total 600 ml 300 ml # Voids 2 Objective GENERAL: awake, responsive, NAD HEAD AND NECK: Pupils are equal and reactive to light. Extraocular movements are intact. Neck was supple. No JVD. LUNGS: Bilateral air entry. Decreased air in the bases. HEART: S1, S2. irregular. No murmur or gallop ABDOMEN: Soft, nondistended. not tenderness, Mildly obese, PEG site intact. EXTREMITIES: No cyanosis, clubbing, or edema. GENITOURINARY: Lowe catheter. NEUROLOGIC: Cranial nerves II through XII grossly intact. moving all extremities equally. Gait was not able to assess due to the patient's status. RECTAL: Refused and deferred. Assessment/Plan Assessment/Plan ASSESSMENT: 1. COVID-19 pneumonia. 2. Altered mental status, most likely secondary to toxic metabolic encephalopathy. 3. Atrial fibrillation with rapid ventricular rate. 4. Anemia most likely secondary to acute blood loss. 5. Sepsis secondary to urinary tract infection as well as pneumonia. 6. Vaginal bleeding. 7. UTI=VRE 8. History of diabetes type 2. 9. Inoperable endometrial adenocarcinoma, status post brachytherapy. 10. Hypertension. 11. History of lacunar infarction. 12. Hematuria. PLAN: 1. In Monitor Unit 2. Dr. Buitrago=Pulmonary/Critical Care 3. Dr. Wale Wu = Cardiology. 4. Antibiotic= monitor off abx 5. In droplet isolation COVID-19 room. 6. Code status =Full Code. 7. DVT prophylaxis: Lovenox 8. discharge planning to facility. 9. DVT prophylaxis/therapy: Lovenox injection - Completed Remdesivir and Decadron IV discharged to nursing facility soon. Dewayne Mendoza MD Apr 29, 2020 15:59
[2020-04-29 16:00] VITALS: BP 118/70
--- NOTE | 2020-04-29 18:43 | NUR ---
NURSE NOTES: Gave report to VARUN Kelly in [facility] patient to go to room 31.
--- NOTE | 2020-04-29 19:23 | NUR ---
NURSE HAND-OFF: Important Events on Shift:For D/C Patient Status: Stable Diet: glucerna 1.2 @55cc Pending Orders: none Pending Results/Labs:none Pending MD notification:none Latest Vital Signs: Temperature 97.7 , Pulse 104 , B/P 118 /70 , Respiratory Rate 20 , O2 SAT 100 , Nasal Cannula, O2 Flow Rate 3.0 . Vital Sign Comment: stable Latest Ortega Fall Score: 55 Fall Risk: High Risk Safety Measures: Call light Within Reach, Bed Alarm Zone 1, Side Rails Side Rails x2, Bed position Low and Locked. Fall Precautions: Yellow Socks Yellow Gown Door Sign Patient Fall Education Report given to VARUN Harris.
--- NOTE | 2020-04-29 19:35 | NUR ---
NURSE NOTES: Patient in bed, awake and able to make needs known. On nasal cannula 3L O2 with no signs of distress or SOB. Lowe in place and draining to gravity. IV intact and patent. G-tube in place and running as ordered. Bed locked and in lowest position, alarm on. Call light within easy reach. D/C planned for tonight back to SNF. Awaiting [facility] ambulance.
[2020-04-29 20:00] VITALS: BP 113/74
--- NOTE | 2020-04-29 20:38 | NUR ---
NURSE NOTES: Patient discharged to [facility] via [facility] ambulance at 2034. IV access, Lowe catheter and ID band removed. WCP taken AM shift. VSS. senior financial reporting analyst aware.
--- NOTE | 2020-04-30 22:01 | Discharge Summary ---
Discharge Summary Discharge Summary _ DATE OF ADMISSION: 04/08/2020 DATE OF DISCHARGE: 04/29/2020 ADMITTING MD: Dr. Dewayne Mendoza DISCHARGED BY: Dr. Marina Buitrago CONSULTANTS: Dr. Marina Wu BRIEF HOSPITAL COURSE: The patient is a 64-year-old unfortunate -[place] female with past medical history significant for inoperable endometrial adenocarcinoma, status post brachytherapy in December 16, 2019 at [facility], with history of hypertension, CVA, diabetes type 2, chronic lacunar infarction with bilateral basal ganglia and king radiata and left parietal lobe stroke, prior history of UTI, who presented to the hospital from nursing facility after she was noted to have COVID-19 positive 2 days prior. The patient started to have irregular tachycardia with a heart rate of 160, with associated vaginal bleeding. IV normal saline was started. Pressure improved however patient had persistent tachycardia. She was then noted to be altered than usual. She was then taken to ED for further evaluation. Upon evaluation at ED, heart rate was elevated to 160s. Blood pressure 104/62. She was afebrile and saturating 95% on room air. Patient was on rapid A. fib. She was started on Cardizem bolus and drip. After several minutes, patient converted to normal sinus rhythm. She was then in sinus tachycardia. Cardizem and dose was decreased and patient was started on IV normal saline bolus. CBC showed hemoglobin of 10.5, decreased from baseline 14. There was blood coming from Lowe catheter as well as blood coming from patient's rectum. She was emergently started on 2 units packed red blood cells. She had patchy interstitial infiltrates on chest x-ray. She was given Decadron. She was given vancomycin and cefepime. She was then admitted to ICU. Shortly after being transferred to ICU, blood pressure was decreasing and patient required vasopres sors. Right femoral vein central line was inserted. Patient was continued on IV pressors. She was given cefepime and vancomycin. [employer] reviewed the EKG. EKG appeared to be in sinus tachycardia with PACs. She had mild elevation of troponin which was due to demand ischemia in the setting of anemia. Echocardiogram showed normal left ventricular systolic function without wall motion abnormalities. Patient had low phosphorus, low magnesium and low potassium. She was given magnesium, potassium, and phosphorus IV supplement. She was placed on IV Protonix. On admission, she was noted to have abnormal wounds. Patient was identified to have a stage III sacral buttock cleft opening ulcer. She was given local wound care. Blood culture showed growth of Staphylococcus. Urine culture with VRE. IV vancomycin was changed to p.o. Zyvox. She was continued on cefepime for Proteus UTI. She was eventually started on remdesivir. Patient was given Lovenox for DVT prophylaxis. GI was consulted for rectal bleeding. GI was consulted. Hemoglobin and hematocrit were trended. Patient passed swallow eval although had poor p.o. intake. Patient would eventually need PEG tube. NG tube was inserted. Neurologist was consulted for evaluation of altered mental status. 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 Patient has multifocal metabolic encephalopathy related to pneumonia, UTI and bacteremia. Patient was noted to have gross hematuria. Urologist was consulted. Lowe catheter irrigation was done. Lovenox was placed on hold. On 04/19/2020, she underwent EGD with PEG tube placement. She was started on tube feeding. The right leg was swollen. Venous duplex showed occlusive deep venous thrombosis extending from the right common femoral vein to the right popliteal vein. Patient is unable to receive anticoagulation due to hematuria. An IVC filter was inserted on 04/20/2020. Urine eventually cleared. Patient will eventually need cystoscopy electively. Patient completed remdesivir and IV Decadron treatment. She completed antibiotic treatment. She was discharged back to nursing facility. FINAL DIAGNOSES: COVID-19 pneumonia Acute DVT on the right leg Altered mental status, most likely secondary to toxic metabolic encephalopathy Sinus tachycardia Sepsis secondary to urinary tract infection as well as pneumonia Vaginal bleeding with inoperable endometrial adenocarcinoma, status post bra chytherapy UTI with VRE Hypertension Hematuria History of lacunar infarction Urinary retention Probable neurogenic bladder Acute kidney injury Anemia requiring blood transfusion Decubitus skin ulcer, stage III sacral, present on admission DISPOSITION: Patient was discharged to [facility]. DISCHARGE MEDICATIONS: Refer to Discharge Medication List. I have been assigned to complete a discharge summary on this account, I was not involved with the patient's management.--RICHA Gonzales Jacqueline Robles NP Apr 30, 2020 22:00
== END 2020-04-29 20:35 | DRG 871 ==
LOC: EDBD 15:00 → EMR 15:28 → ICU 15:38 → EDBEDREQ 16:37 → 2W 04-11 11:04 → 2E 04-15 04:55 → 4E 04-26 21:20
PROC: 06HN33Z Insertion of Infusion Device into Left Femoral Vein, Percutaneous Approach (ICD-10-PCS; principal; 2020-04-08)
PROC: 0DH63UZ Insertion of Feeding Device into Stomach, Percutaneous Approach (ICD-10-PCS; 2020-04-19 13:20)
PROC: 06H03DZ Insertion of Intraluminal Device into Inferior Vena Cava, Percutaneous Approach (ICD-10-PCS; 2020-04-20)
DX: A41.89 Other specified sepsis (principal); U07.1 COVID-19; J12.89 Other viral pneumonia; G93.41 Metabolic encephalopathy; R57.8 Other shock; R65.21 Severe sepsis with septic shock; N39.0 Urinary tract infection, site not specified; D62 Acute posthemorrhagic anemia; K62.5 Hemorrhage of anus and rectum; N17.9 Acute kidney failure, unspecified; I82.411 Acute embolism and thrombosis of right femoral vein; I82.431 Acute embolism and thrombosis of right popliteal vein; I48.91 Unspecified atrial fibrillation; C54.1 Malignant neoplasm of endometrium; E11.9 Type 2 diabetes mellitus without complications; Z86.73 Personal history of transient ischemic attack (TIA), and cerebral infarction without residual deficits; N93.9 Abnormal uterine and vaginal bleeding, unspecified; I10 Essential (primary) hypertension; E66.01 Morbid (severe) obesity due to excess calories; Z68.32 Body mass index [BMI] 32.0-32.9, adult; R13.10 Dysphagia, unspecified; R31.9 Hematuria, unspecified; F32.9 Major depressive disorder, single episode, unspecified; R33.9 Retention of urine, unspecified; N31.9 Neuromuscular dysfunction of bladder, unspecified
CPT/HCPCS: 36415; 71045; 74018; 74176; 76937; 80048; 80053; 80061; 80076; 80202; 81001; 81003; 82140; 82248; 82550; 82553; 82607; 82728; 82746; 82803; 82962; 83540; 83550; 83605; 83615; 83690; 83735; 83880; 83921; 83930; 83935; 84100; 84439; 84443; 84484; 84550; 85007; 85025; 85044; 85379; 85384; 85610; 85651; 85730; 86140; 86850; 86900; 86901; 86920; 87040; 87081; 87086; 87181; 89050; 93005; 93306; 93970; 94003; 94150; 96361; 96365; 96367; 96375; 99291; J1815; J2250; J2405; J2765; J3490; J7030; U0002